=== PATIENT | female | born 1950 | race American Indian/Alaskan Native ===

== ENCOUNTER 2018-06-28 18:31 | Inpatient (IN) | payer MEDICARE ==
[2018-06-28] MEDS ORDERED: PERCOCET 5/325 PO ONE (20:49)
[2018-06-28 21:25] LABS: Hematocrit 50.3 % (30.3-42.9); Hemoglobin 16.6 gm/dl (10.1-14.3); Mean Corpuscular HGB Conc 33 % (30-34); Mean Corpuscular Volume 107 fl (79-97); Platelet Count 172 K/mm3 (140-440); Red Blood Count 4.69 M/mm3 (3.65-5.03); Red Cell Distribution Width 15.6 % (13.2-15.2)
[2018-06-28 21:56] LABS: Total Cells Counted 100
[2018-06-28 21:57] LABS: Basophils % (Manual) 0 % (0.0-1.8); Eosinophils % (Manual) 0 % (0.0-4.3); Myelocytes # (Manual) 0.2 K/mm3
[2018-06-28 21:58] LABS: Anisocytosis 1+; Macrocytosis 1+; Platelet Estimate Consistent w Auto; Poikilocytosis 1+
[2018-06-28 22:19] LABS: Albumin 3.2 g/dL (3.9-5)
--- NOTE | 2018-06-28 22:36 | XRay Report ---
PROCEDURE: XR CHEST 1V AP TECHNIQUE: Chest radiograph single view. HISTORY: sob COMPARISONS: None . FINDINGS: Heart: Normal. Mediastinum/Vessels: Normal. Lungs/Pleural space: Mild left lower lung atelectasis with slight left effusion. Mild vascular conge stion. Bony thorax: No acute osseous abnormality. Life support devices: None. IMPRESSION: Mild vascular congestion with mild left lower lung atelectasis and slight left effusion. . This document is electronically signed by Letitia Steward DO., June 28 2018 10:34:39 PM ET
--- NOTE | 2018-06-28 23:37 | XRay Report ---
PROCEDURE: XR SPINE LUMBOSACRAL 2-3V TECHNIQUE: Lumbar spine radiographs, AP and lateral views. HISTORY: lower back pain after fall COMPARISONS: None . FINDINGS: Alignment: Normal . Vertebral body heights/Disk spaces: There is mild loss of disc space height at the L4-5 and L5-S1 le vels. Slight endplate concavity identified at the L4 vertebral level. There is mild spur formation of f the vertebral bodies at all levels.. . Fracture(s): None . Facets: Normal . Bone mineralization: Moderate generalized osteopenia . IMPRESSION: There is no evidence of an acute fracture. Moderate lumbar spondylosis and degenerative disc changes as described. There is moderate generalized osteopenia. . This document is electronically signed by Letitia Steward DO., June 28 2018 11:34:37 PM ET
[2018-06-28] MEDS ORDERED: ROCEPHIN/NS 1 GM/50 ML 1 GM/50 ML BAG IV ONE (23:55)
[2018-06-29] MEDS ORDERED: ZITHROMAX 500 MG in NACL 0.9% 250ML 250 ML IV ONE (00:15)
--- NOTE | 2018-06-29 01:09 | Emergency Department Report ---
ED General Adult HPI - General Chief complaint: Fall Stated complaint: FALL Time Seen by Provider: 06/28/18 20:46 Source: patient Mode of arrival: Ambulatory Limitations: No Limitations - History of Present Illness Initial comments: Patient is a 67-year-old female past medical history of end-stage renal disease on peritoneal dialysis presents status post fall. Patient states that she has also been having some weakness. She denies being short of breath but she has been having some cough. She states that she fell at home around 9 AM this morning but she had no loss of consciousness. She is complaining of lower back pain that is a 7 out of 10 nothing makes it better and nothing makes it worse. Severity scale (0 -10): 6 - Related Data Home Medications Medication Instructions Recorded Confirmed Last Taken Calcitriol [Rocaltrol] 0.5 mcg PO QDAY 06/29/18 06/29/18 Unknown Potassium Chloride [Klor-Con M20] 20 meq PO DAILY 06/29/18 06/29/18 Unknown Sevelamer Carbonate 1,600 mg PO TID 06/29/18 06/29/18 Unknown Simvastatin [Zocor] 20 mg PO DAILY 06/29/18 06/29/18 Unknown Previous Rx's Medication Instructions Recorded Last Taken Type Aspirin [Aspirin BABY CHEW TAB] 81 mg PO QDAY #30 08/19/14 06/23/15 Rx Allergies Allergy/AdvReac Type Severity Reaction Status Date / Time No Known Allergies Allergy Verified 08/18/14 08:52 ED Review of Systems ROS: Stated complaint: FALL Other details as noted in HPI Constitutional: denies: chills, fever Eyes: denies: eye pain, eye discharge, vision change ENT: denies: ear pain, throat pain Respiratory: denies: cough, shortness of breath, wheezing Cardiovascular: denies: chest pain, palpitations Endocrine: no symptoms reported Gastrointestinal: denies: abdominal pain, nausea, diarrhea Genitourinary: denies: urgency, dysuria, discharge Musculoskeletal: back pain. denies: joint swelling, arthralgia Skin: denies: rash, lesions Neurological: denies: headache, weakness, paresthesias Psychiatric: denies: anxiety, depression Hematological/Lymphatic: denies: easy bleeding, easy bruising ED Past Medical Hx - Past Medical History Hx Hypertension: Yes (+ hyperlipidemia) Hx Diabetes: Yes (DIET CONTROLLED) Hx Renal Disease: Yes (CKD, STAGE 4 DR. 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 [place]) Hx Arthritis: Yes Hx Seizures: No Hx Asthma: No Hx COPD: No Hx HIV: No - Surgical History Past Surgical History?: No - Social History Smoking Status: Never Smoker Substance Use Type: None - Medications Home Medications: Home Medications Medication Instructions Recorded Confirmed Last Taken Type Aspirin [Aspirin BABY CHEW TAB] 81 mg PO QDAY #30 08/19/14 06/29/18 06/23/15 Rx Calcitriol [Rocaltrol] 0.5 mcg PO QDAY 06/29/18 06/29/18 Unknown History Potassium Chloride [Klor-Con M20] 20 meq PO DAILY 06/29/18 06/29/18 Unknown History Sevelamer Carbonate 1,600 mg PO TID 06/29/18 06/29/18 Unknown History Simvastatin [Zocor] 20 mg PO DAILY 06/29/18 06/29/18 Unknown History ED Physical Exam - General Limitations: No Limitations General appearance: alert, in no apparent distress - Head Head exam: Present: atraumatic, normocephalic - Eye Eye exam: Present: normal appearance - ENT ENT exam: Present: mucous membranes moist - Neck Neck exam: Present: normal inspection - Respiratory Respiratory exam: Present: normal lung sounds bilaterally. Absent: respiratory distress - Cardiovascular Cardiovascular Exam: Present: regular rate, normal rhythm. Absent: systolic murmur, diastolic murmur, rubs, gallop - GI/Abdominal GI/Abdominal exam: Present: soft, normal bowel sounds - Extremities Exam Extremities exam: Present: normal inspection - Back Exam Back exam: Present: normal inspection - Neurological Exam Neurological exam: Present: alert, oriented X3 - Psychiatric Psychiatric exam: Present: normal affect, normal mood - Skin Skin exam: Present: warm, dry, intact, normal color. Absent: rash ED Course Vital Signs 06/28/18 06/28/18 06/28/18 18:49 18:55 19:00 Temperature 97.2 F L Pulse Rate 56 L Respiratory 56 H Rate Blood Pressure 97/42 105/67 105/74 O2 Sat by Pulse 92 Oximetry 06/28/18 06/28/18 06/28/18 19:15 19:30 19:45 Temperature Pulse Rate 115 H 110 H 110 H Respiratory 16 18 19 Rate Blood Pressure 103/64 111/73 110/74 O2 Sat by Pulse Oximetry 06/28/18 06/28/18 06/28/18 20:00 20:15 20:30 Temperature Pulse Rate 108 H 108 H 109 H Respiratory 16 16 15 Rate Blood Pressure 96/64 108/77 116/74 O2 Sat by Pulse 89 84 Oximetry 06/28/18 06/28/18 06/28/18 20:45 21:00 21:15 Temperature Pulse Rate 110 H 112 H 106 H Respiratory 17 13 16 Rate Blood Pressure 117/73 120/78 105/67 O2 Sat by Pulse 75 L 49 L Oximetry 06/28/18 06/28/18 06/28/18 21:31 21:57 22:00 Temperature Pulse Rate 96 H 112 H 109 H Respiratory 17 16 16 Rate Blood Pressure 117/73 117/73 114/68 O2 Sat by Pulse Oximetry 06/28/18 06/28/18 06/28/18 22:15 22:30 23:00 Temperature Pulse Rate 70 109 H 105 H Respiratory 18 17 15 Rate Blood Pressure 114/68 97/59 100/62 O2 Sat by Pulse Oximetry 06/28/18 06/28/18 06/28/18 23:04 23:15 23:30 Temperature Pulse Rate 118 H 107 H 105 H Respiratory 18 16 16 Rate Blood Pressure 95/62 98/54 100/60 O2 Sat by Pulse Oximetry 06/28/18 06/28/18 06/29/18 23:31 23:45 00:00 Temperature Pulse Rate 108 H 103 H 104 H Respiratory 21 15 16 Rate Blood Pressure 100/60 85/53 93/58 O2 Sat by Pulse Oximetry 06/29/18 06/29/18 06/29/18 00:15 01:13 01:15 Temperature Pulse Rate 104 H 103 H 102 H Respiratory 16 16 15 Rate Blood Pressure 85/53 85/53 64/29 O2 Sat by Pulse Oximetry 06/29/18 01:30 Temperature Pulse Rate 104 H Respiratory 16 Rate Blood Pressure 61/22 O2 Sat by Pulse Oximetry - Consultations Consultation #1: 06/29/18 03:[address] 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 ED Medical Decision Making - Lab Data Result diagrams: 06/28/18 20:54 06/28/18 20:54 Lab Results 06/28/18 06/28/18 06/28/18 Range/Units 10:38 20:54 20:54 WBC 24.8 H (4.5-11.0) K/mm3 RBC 4.69 (3.65-5.03) M/mm3 Hgb 16.6 H (10.1-14.3) gm/dl Hct 50.3 H (30.3-42.9) % MCV 107 H (79-97) fl MCH 35 H (28-32) pg MCHC 33 (30-34) % RDW 15.6 H (13.2-15.2) % Plt Count 172 (140-440) K/mm3 Add Manual Diff Complete Total Counted 100 Seg Neutrophils % Check Pilot Seg Neuts % (Manual) 95.0 H (40.0-70.0) % Band Neutrophils % 0 % Lymphocytes % (Manual) 3.0 L (13.4-35.0) % Reactive Lymphs % (Man) 0 % Monocytes % (Manual) 1.0 (0.0-7.3) % Eosinophils % (Manual) 0 (0.0-4.3) % Basophils % (Manual) 0 (0.0-1.8) % Metamyelocytes % 0 % Myelocytes % 1.0 % Promyelocytes % 0 % Blast Cells % 0 % Nucleated RBC % Not Reportable Seg Neutrophils # Man 23.6 H (1.8-7.7) K/mm3 Band Neutrophils # 0.0 K/mm3 Lymphocytes # (Manual) 0.7 L (1.2-5.4) K/mm3 Abs React Lymphs (Man) 0.0 K/mm3 Monocytes # (Manual) 0.2 (0.0-0.8) K/mm3 Eosinophils # (Manual) 0.0 (0.0-0.4) K/mm3 Basophils # (Manual) 0.0 (0.0-0.1) K/mm3 Metamyelocytes # 0.0 K/mm3 Myelocytes # 0.2 K/mm3 Promyelocytes # 0.0 K/mm3 Blast Cells # 0.0 K/mm3 WBC Morphology Not Reportable Hypersegmented Neuts Not Reportable Hyposegmented Neuts Not Reportable Hypogranular Neuts Not Reportable Smudge Cells Not Reportable Toxic Granulation Not Reportable Toxic Vacuolation Not Reportable Dohle Bodies Not Reportable Pelger-Huet Anomaly Not Reportable Nomi Rods Not Reportable Platelet Estimate Consistent w auto Clumped Platelets Not Reportable Plt Clumps, EDTA Not Reportable Large Platelets Not Reportable Giant Platelets Not Reportable Platelet Satelliting Not Reportable Plt Morphology Comment Not Reportable RBC Morphology Not Reportable Dimorphic RBCs Not Reportable Polychromasia Not Reportable Hypochromasia Not Reportable Poikilocytosis 1+ Anisocytosis 1+ Microcytosis Not Reportable Macrocytosis 1+ Spherocytes Not Reportable Pappenheimer Bodies Not Reportable Sickle Cells Not Reportable Target Cells Not Reportable Tear Drop Cells Not Reportable Ovalocytes Not Reportable Helmet Cells Not Reportable Barnhart-[place] Bodies Not Reportable [place] Rings Not Reportable [place] Cells Not Reportable Bite Cells Not Reportable Crenated Cell Not Reportable Elliptocytes Not Reportable Acanthocytes (Spur) Not Reportable Rouleaux Not Reportable Hemoglobin C Crystals Not Reportable Schistocytes Not Reportable Malaria parasites Not Reportable Nav[place]et Bodies Not Reportable Hem Pathologist Commnt No D-Dimer (0-234) ng/mlDDU Sodium 131 L (137-145) mmol/L Potassium 4.5 (3.6-5.0) mmol/L Chloride 89.6 L (98-107) mmol/L Carbon Dioxide 19 L (22-30) mmol/L Anion Gap 27 mmol/L BUN 29 H (7-17) mg/dL Creatinine 9.3 H (0.7-1.2) mg/dL Estimated GFR 5 ml/min BUN/Creatinine Ratio 3 % Glucose 174 H (65-100) mg/dL Calcium 10.0 (8.4-10.2) mg/dL Total Bilirubin 0.40 (0.1-1.2) mg/dL AST 25 (5-40) units/L ALT 5 L (7-56) units/L Alkaline Phosphatase 88 (35-129) units/L Troponin T 0.073 H (0.00-0.029) ng/mL Total Protein 7.4 (6.3-8.2) g/dL Albumin 3.2 L (3.9-5) g/dL Albumin/Globulin Ratio 0.8 % 06/28/18 Range/Units 22:26 WBC (4.5-11.0) K/mm3 RBC (3.65-5.03) M/mm3 Hgb (10.1-14.3) gm/dl Hct (30.3-42.9) % MCV (79-97) fl MCH (28-32) pg MCHC (30-34) % RDW (13.2-15.2) % Plt Count (140-440) K/mm3 Add Manual Diff Total Counted Seg Neutrophils % Seg Neuts % (Manual) (40.0-70.0) % Band Neutrophils % % Lymphocytes % (Manual) (13.4-35.0) % Reactive Lymphs % (Man) % Monocytes % (Manual) (0.0-7.3) % Eosinophils % (Manual) (0.0-4.3) % Basophils % (Manual) (0.0-1.8) % Metamyelocytes % % Myelocytes % % Promyelocytes % % Blast Cells % % Nucleated RBC % Seg Neutrophils # Man (1.8-7.7) K/mm3 Band Neutrophils # K/mm3 Lymphocytes # (Manual) (1.2-5.4) K/mm3 Abs React Lymphs (Man) K/mm3 Monocytes # (Manual) (0.0-0.8) K/mm3 Eosinophils # (Manual) (0.0-0.4) K/mm3 Basophils # (Manual) (0.0-0.1) K/mm3 Metamyelocytes # K/mm3 Myelocytes # K/mm3 Promyelocytes # K/mm3 Blast Cells # K/mm3 WBC Morphology Hypersegmented Neuts Hyposegmented Neuts Hypogranular Neuts Smudge Cells Toxic Granulation Toxic Vacuolation Dohle Bodies Pelger-Huet Anomaly Nomi Rods Platelet Estimate Clumped Platelets Plt Clumps, EDTA Large Platelets Giant Platelets Platelet Satelliting Plt Morphology Comment RBC Morphology Dimorphic RBCs Polychromasia Hypochromasia Poikilocytosis Anisocytosis Microcytosis Macrocytosis Spherocytes Pappenheimer Bodies Sickle Cells Target Cells Tear Drop Cells Ovalocytes Helmet Cells Barnhart-[place] Bodies [place] Rings Edgar Cells Bite Cells Crenated Cell Elliptocytes Acanthocytes (Spur) Rouleaux Hemoglobin C Crystals Schistocytes Malaria parasites Navneet Bodies Hem Pathologist Commnt D-Dimer > 52646 H (0-234) ng/mlDDU Sodium (137-145) mmol/L Potassium (3.6-5.0) mmol/L Chloride (98-107) mmol/L Carbon Dioxide (22-30) mmol/L Anion Gap mmol/L BUN (7-17) mg/dL Creatinine (0.7-1.2) mg/dL Estimated GFR ml/min BUN/Creatinine Ratio % Glucose (65-100) mg/dL Calcium (8.4-10.2) mg/dL Total Bilirubin (0.1-1.2) mg/dL AST (5-40) units/L ALT (7-56) units/L Alkaline Phosphatase (35-129) units/L Troponin T (0.00-0.029) ng/mL Total Protein (6.3-8.2) g/dL Albumin (3.9-5) g/dL Albumin/Globulin Ratio % - EKG Data -: EKG Interpreted by Me - EKG Data 06/29/18 03:48 KG shows sinus tachycardia rate 106 total left atrial enlargement no ST segment elevation or T-wave inversion normal axis. Impression abnormal EKG - Radiology Data Radiology results: report reviewed, image reviewed Chest x-ray: Shows left lobe atelectasis Ventilation perfusion scan: Shows low probability of pulmonary embolism CT angios chest: No contrast was used and the study shows left lobe atelectasis - Medical Decision Making Chief medical diagnosis: PNA ddx: NSTEMI, Pulmonary embolism, lumbar sacral strain I will give antibiotics, cxr, blood work, nephrology consult and will admit the patient to the hospitalist service Critical Care Time: Yes (35) Critical care time in (mins) excluding proc time.: 35 Critical care attestation.: If time is entered above; I have spent that time in minutes in the direct care of this critically ill patient, excluding procedure time. Medical care time spent with patient 35 minutes ED Disposition Clinical Impression: ESRD (end stage renal disease), NSTEMI (non-ST elevated myocardial infarction) PNA (pneumonia) Qualifiers: Pneumonia type: due to unspecified organism Laterality: left Lung location: lower lobe of lung Qualified Code(s): J18.1 - Lobar pneumonia, unspecified organism Fall Qualifiers: Encounter type: initial encounter Qualified Code(s): W19.XXXA - Unspecified fall, initial encounter Disposition: OP ADMIT IP TO THIS HOSP Is pt being admited?: Yes Does the pt Need Aspirin: No Condition: Stable Instructions: Chest Pain (ED), Bacterial Pneumonia (ED) Referrals: JENNYFER OLVERA MD [Primary Care Provider] - 3-5 Days
[2018-06-29] MEDS ORDERED: NACL 0.9% 500 ML 500 ML IV ONE (01:45)
[2018-06-29] MEDS ORDERED: NACL 0.9% 1000 ML 1,000 ML ONE (01:49)
--- NOTE | 2018-06-29 01:49 | Cat Scan Report ---
PROCEDURE: CT CHEST TECHNIQUE: Computerized axial tomography of the chest was performed without contrast material. This study is performed without intravenous contrast and the sensitivity for pathology, including neoplasm s, adenopathy, abscess, pulmonary embolism and aortic dissection, is reduced. HISTORY: sob elevated d-dimer COMPARISONS: None . FINDINGS: Heart and pericardium: Normal. Thoracic aorta: Moderate atherosclerosis of the aorta. There is tortuosity of thoracic aorta. No ane urysm is seen.. Pulmonary vasculature: Normal. Lymph nodes: No enlarged thoracic lymph nodes. Lungs: Mild atelectasis identified in the left lower lung. Slight scarring in the left lower lung is noted. Central airway is patent. Pleural space: No effusion, thickening, or pneumothorax. Musculoskeletal structures: Moderate degenerative changes of the thoracic spine.. Upper abdominal structures: Moderate ascites identified in the upper abdomen. IMPRESSION: There is atelectasis in the left lower lung. Slight scarring left lower lung is noted. R ight lung is clear. There is moderate ascites identified in the upper abdomen. This document is electronically signed by Letitia Steward DO., June 29 2018 01:47:10 AM ET
--- NOTE | 2018-06-29 03:31 | Nuclear Medicine Report ---
PROCEDURE: NM LUNG SCAN PERF/VENT TECHNIQUE: 4.66 mCi Tc-99m MAA was injected IV for pulmonary perfusion imaging in multiple projectio ns. 32.3 mCi xenon-133 gas was inhaled for pulmonary ventilation imaging in multiple projections. Inj ection site: RIGHT antecubital fossa. HISTORY: sob and elevated d-dimer COMPARISONS: Chest radiograph same date . FINDINGS: Perfusion: There is diminished perfusion in the left lower lung posteriorly. The remainder of the scar ngs perfuse well. Ventilation: There is some diminished ventilation in the left lower lung posteriorly. The remainder of the lungs ventilate appropriately. The findings are matched. The findings match the patient's chest radiograph. IMPRESSION: Low probability of pulmonary embolus . This document is electronically signed by Letitia Steward DO., June 29 2018 03:30:13 AM ET
[2018-06-29 04:49] LABS: Chol/HDL Ratio 2.45 %
[2018-06-29] MEDS ORDERED: XYLOCAINE 1% 20 mL ONE (05:27)
[2018-06-29] MEDS: LEVOPHED DRIP 4 MG/NS 250 ML 4 MG/250 ML BAG IV SCH ×2 (05:29→13:00)
[2018-06-29] MEDS ORDERED: XYLOCAINE 1% 20 mL INFILTRATI ONE (05:33)
[2018-06-29] MEDS ORDERED: LEVOPHED DRIP 4 MG/NS 250 ML 4 MG/250 ML BAG IV ONE (05:59)
--- NOTE | 2018-06-29 07:32 | XRay Report ---
PROCEDURE: XR CHEST 1V AP TECHNIQUE: AP portable chest radiograph HISTORY: Post Central Line COMPARISONS: 06/28/2018, CT 06/29/2018 FINDINGS: No mediastinal shift. Cardiac silhouette is not enlarged. No pneumothorax, effusion, or focal airspac e disease identified. Linear left basilar atelectasis/scarring. No acute skeletal findings. Contrast noted within the soft tissues of the left arm from recent injection/IV infiltration. IMPRESSION: No central line is identified. Clinical correlation is requested. No pneumothorax. Infiltrated intravenous contrast within the soft tissues of the left neck and arm. This document is electronically signed by Deshawn Granados MD., June 29 2018 07:30:34 AM ET
--- NOTE | 2018-06-29 10:58 | History and Physical Report ---
History of Present Illness Date of examination: 06/29/18 Date of admission: 06/29/18 09:13 Chief complaint: s/p fall History of present illness: Patient is a 67-year-old female past medical history of end-stage renal disease on peritoneal dialysis, hypertension hyperlipidemia, diabetes mellitus type 2 on diet control presented to ER by EMS after having a fall. She states that she fell at home from her bed around 9 AM this morning but she had no loss of consciousness. She was unable to get up from the bed as she was feeling very weak . She was on the floor chills 5 PM. Her family called emergency services to break into her house . She was then brought to the ER for further evaluation and management . She noted to have highly elevated d-dimer, elevated white count. In the ED, patient was hypotensive w/ WBC 24.8. CTA chest was unremarkable. V/Q scan was also low prob PE. She denies fever, chills. She denies SOB, cough. She denies abdominal pain, nausea, vomiting. PD fluid has been clear. She was placed on Levophed, given IV Rocephin and then called for admission for further evaluation and management. Multiple attempts were made to place a central line which has been failed, vascular was consulted from the ER. Past History Past Medical History: diabetes, hypertension, hyperlipidemia, ESRD on PD Past Surgical history: PD catheter placement Social history: denies: smoking, alcohol abuse Family history: diabetes, hypertension, other (renal disease) Review of systems: Constitutional: denies: chills, fever Eyes: denies: eye pain, eye discharge, vision change ENT: denies: ear pain, throat pain Respiratory: denies: cough, shortness of breath, wheezing Cardiovascular: denies: chest pain, palpitations Endocrine: no symptoms reported Gastrointestinal: denies: abdominal pain, nausea, diarrhea Genitourinary: denies: urgency, dysuria, discharge Musculoskeletal: back pain. denies: joint swelling, arthralgia Skin: denies: rash, lesions Neurological: denies: headache, weakness, paresthesias Psychiatric: denies: anxiety, depression Hematological/Lymphatic: denies: easy bleeding, easy bruising Medications and Allergies Allergies Allergy/AdvReac Type Severity Reaction Status Date / Time No Known Allergies Allergy Verified 08/18/14 08:52 Home Medications Medication Instructions Recorded Confirmed Last Taken Type Aspirin [Aspirin BABY CHEW TAB] 81 mg PO QDAY #30 08/19/15 06/29/18 06/23/15 Rx Calcitriol [Rocaltrol] 0.5 mcg PO QDAY 06/29/18 06/29/18 Unknown History Potassium Chloride [Klor-Con M20] 20 meq PO DAILY 06/29/18 06/29/18 Unknown History Sevelamer Carbonate 1,600 mg PO TID 06/29/18 06/29/18 Unknown History Simvastatin [Zocor] 20 mg PO DAILY 06/29/18 06/29/18 Unknown History Active Meds: Active Medications Aspirin (Baby Aspirin) 81 mg PO QDAY DIANE Calcitriol (Rocaltrol) 0.5 mcg PO QDAY DIANE Norepinephrine (Levophed Drip 4 Mg/Ns 250 Ml) 4 mg in 250 mls @ 37.5 mls/hr IV TITR DIANE; Protocol Last Admin: 06/29/18 05:29 Dose: 10 mcg/min, 37.5 mls/hr Documented by: Ceftriaxone Sodium (Rocephin/Ns 2 Gm/100 Ml) 2 gm in 100 mls @ 200 mls/hr IV Q12HR DIANE; Protocol Miscellaneous Medication (Simvastatin [Zocor]) 20 mg PO DAILY [facility] Peritoneal Dialysis Solution (Dianeal Low Calcium W/1.5% Dextrose) 2,000 ml IP Q6HR DIANE Sevelamer Carbonate (Renvela) 1,600 mg PO TID DIANE Exam - Physical Exam Narrative exam: GENERAL: well-developed and well-nourished AAF lying on bed appeared to be in no discomfort. HEENT: Normocephalic. Atraumatic. No conjunctival congestion or icterus. Patient has moist mucous membranes. NECK: Supple. Trachea midline. CHEST/LUNGS: Clear to auscultated bilaterally, breathing nonlabored. No wheezes crackles or rhonchi. HEART/CARDIOVASCULAR: Regular in rate and rhythm. S1 and S2 positive. ABDOMEN: Abdomen is soft, nontender. Patient has normal bowel sounds. SKIN: There is no rash. Warm and dry. NEURO: No focal motor deficit. Follows command. MUSCULOSKELETAL: No joint effusion or tenderness. EXTRIMITY: No edema, no cyanosis or clubbing. PSYCH: Cooperative. - Constitutional Vitals: Temp Pulse Resp BP Pulse Ox 98.2 F 105 H 16 116/68 95 06/29/18 04:46 06/29/18 07:30 06/29/18 07:30 06/29/18 07:30 06/29/18 07:30 Results - Labs CBC & Chem 7: 06/29/18 14:11 06/29/18 13:30 Labs: Abnormal lab results 06/28/18 06/28/18 06/28/18 Range/Units 10:38 20:54 20:54 WBC 24.8 H (4.5-11.0) K/mm3 Hgb 16.6 H (10.1-14.3) gm/dl Hct 50.3 H (30.3-42.9) % MCV 107 H (79-97) fl MCH 35 H (28-32) pg RDW 15.6 H (13.2-15.2) % Seg Neuts % (Manual) 95.0 H (40.0-70.0) % Lymphocytes % (Manual) 3.0 L (13.4-35.0) % Seg Neutrophils # Man 23.6 H (1.8-7.7) K/mm3 Lymphocytes # (Manual) 0.7 L (1.2-5.4) K/mm3 D-Dimer (0-234) ng/mlDDU Sodium 131 L (137-145) mmol/L Chloride 89.6 L (98-107) mmol/L Carbon Dioxide 19 L (22-30) mmol/L BUN 29 H (7-17) mg/dL Creatinine 9.3 H (0.7-1.2) mg/dL Glucose 174 H (65-100) mg/dL ALT 5 L (7-56) units/L Troponin T 0.073 H (0.00-0.029) ng/mL Albumin 3.2 L (3.9-5) g/dL Triglycerides 194 H (2-149) mg/dL HDL Cholesterol 68 H (40-59) mg/dL 06/28/18 Range/Units 22:26 WBC (4.5-11.0) K/mm3 Hgb (10.1-14.3) gm/dl Hct (30.3-42.9) % MCV (79-97) fl MCH (28-32) pg RDW (13.2-15.2) % Seg Neuts % (Manual) (40.0-70.0) % Lymphocytes % (Manual) (13.4-35.0) % Seg Neutrophils # Man (1.8-7.7) K/mm3 Lymphocytes # (Manual) (1.2-5.4) K/mm3 D-Dimer > 45226 H (0-234) ng/mlDDU Sodium (137-145) mmol/L Chloride (98-107) mmol/L Carbon Dioxide (22-30) mmol/L BUN (7-17) mg/dL Creatinine (0.7-1.2) mg/dL Glucose (65-100) mg/dL ALT (7-56) units/L Troponin T (0.00-0.029) ng/mL Albumin (3.9-5) g/dL Triglycerides (2-149) mg/dL HDL Cholesterol (40-59) mg/dL Assessment and Plan Possible sepsis Hypotension vs septic shock HLD ESRD on PD Diabetes Elevated troponin/NSTEMI type 2 - Admit to intensive care unit - Emergent central line placement for vascular has been consulted - Cardiology consulted for elevated troponin - Nephrology consulted for peritoneal dialysis - We'll hold all blood pressure medications - Continue aspirin and statin and DVT prophylaxis - We'll obtain serial troponin, CPK level - Continue empiric antibiotics, obtain blood culture - No infiltrates noted on CTA chest/chest x-ray/VQ scan - will continue to monitor clinically with supportive care The high probability of a clinically significant, sudden or life threatening deterioration of the [45] system(s) required my full and direct attention, intervention and personal management. The aggregate critical care time was [] minutes. This time is in addition to time spent performing reported procedures but includes the following: [x] Data Review and interpretation [x] Patient assessment and monitoring of vital signs [x] Documentation [x] Medication orders and management
--- NOTE | 2018-06-29 11:54 | Consultation ---
History of Present Illness Consult date: 06/29/18 Requesting physician: ALONZO AMATO Consult reason: elevated troponin History of present illness: 67-year-old female with a history of renal disease on peritoneal dialysis has hypertension diabetes hyperlipidemia who fell yesterday denies any lightheadedness or dizziness prior or chest pain or shortness of breath was found be hypotensive and elevated white blood count patient unsuccessful venous access. Was consulted to place a venous access was done successfully in the left common femoral vein. Patient also had abnormal troponin. Patient denies any chest pain or shortness of breath denies any dizziness or fever or chills or syncope. She denies osteoarthritis use a walker to get around is able to her daily activities without issues Past History Past Medical History: diabetes, ESRD (on peritoneal dialysis), hypertension, hyperlipidemia Past Surgical History: Other (hip and knee surgery and PD catheter) Social history: denies: smoking, alcohol abuse, prescription drug abuse Medications and Allergies Allergies Allergy/AdvReac Type Severity Reaction Status Date / Time No Known Allergies Allergy Verified 08/18/14 08:52 Home Medications Medication Instructions Recorded Confirmed Last Taken Type Aspirin [Aspirin BABY CHEW TAB] 81 mg PO QDAY #30 08/19/14 06/29/18 06/23/15 Rx Calcitriol [Rocaltrol] 0.5 mcg PO QDAY 06/29/18 06/29/18 Unknown History Potassium Chloride [Klor-Con M20] 20 meq PO DAILY 06/29/18 06/29/18 Unknown History Sevelamer Carbonate 1,600 mg PO TID 06/29/18 06/29/18 Unknown History Simvastatin [Zocor] 20 mg PO DAILY 06/29/18 06/29/18 Unknown History Active Meds: Active Medications Aspirin (Baby Aspirin) 81 mg PO QDAY DIANE Atorvastatin Calcium (Lipitor) 40 mg PO QHS DIANE Calcitriol (Rocaltrol) 0.5 mcg PO QDAY DIANE Famotidine (Pepcid) 10 mg PO QDAY DIANE Heparin Sodium (Porcine) (Heparin) 5,000 unit SUB-Q Q12HR DIANE Norepinephrine (Levophed Drip 4 Mg/Ns 250 Ml) 4 mg in 250 mls @ 37.5 mls/hr IV TITR DIANE; Protocol Last Titration: 06/29/18 11:00 Dose: 12 mcg/min, 45 mls/hr Documented by: Ceftriaxone Sodium (Rocephin/Ns 2 Gm/100 Ml) 2 gm in 100 mls @ 200 mls/hr IV Q12HR [facility]; Protocol Peritoneal Dialysis Solution (Dianeal Low Calcium W/1.5% Dextrose) 2,000 ml IP Q6HR DIANE Sevelamer Carbonate (Renvela) 1,600 mg PO TID DIANE Review of Systems All systems: negative (as per the HPI) Physical Examination Vital Signs BP 97/42 06/28/18 18:49 General appearance: no acute distress, well-nourished HEENT: Positive: PERRL, Mucus Membranes Moist Neck: Positive: neck supple, trachea midline Cardiac: Positive: Reg Rate and Rhythm, S1/S2. Negative: Audible Murmur Lungs: Positive: clear to auscultation, Normal Breath Sounds Neuro: Positive: Grossly Intact Abdomen: Positive: Soft, Active Bowel Sounds. Negative: Tender, Distended Female genitourinary: deferred Skin: Positive: Clear Incision: Cardiac Cath Site Musculoskeletal: No Pain, Normal Range of Motion Extremities: Present: normal. Absent: edema Results 06/28/18 20:54 06/28/18 20:54 Cardiac Enzymes 06/28/18 Range/Units 20:54 AST 25 (5-40) units/L Lipids 06/28/18 Range/Units 10:38 Triglycerides 194 H (2-149) mg/dL Cholesterol 167 (50-199) mg/dL HDL Cholesterol 68 H (40-59) mg/dL Cholesterol/HDL Ratio 2.45 % CBC 06/28/18 Range/Units 20:54 WBC 24.8 H (4.5-11.0) K/mm3 RBC 4.69 (3.65-5.03) M/mm3 Hgb 16.6 H (10.1-14.3) gm/dl Hct 50.3 H (30.3-42.9) % Plt Count 172 (140-440) K/mm3 Comprehensive Metabolic Panel 06/28/18 Range/Units 20:54 Sodium 131 L (137-145) mmol/L Potassium 4.5 (3.6-5.0) mmol/L Chloride 89.6 L (98-107) mmol/L Carbon Dioxide 19 L (22-30) mmol/L BUN 29 H (7-17) mg/dL Creatinine 9.3 H (0.7-1.2) mg/dL Glucose 174 H (65-100) mg/dL Calcium 10.0 (8.4-10.2) mg/dL AST 25 (5-40) units/L ALT 5 L (7-56) units/L Alkaline Phosphatase 88 (35-129) units/L Total Protein 7.4 (6.3-8.2) g/dL Albumin 3.2 L (3.9-5) g/dL - Imaging and Cardiology Echo: pending EKG interpretations - Telemetry EKG Rhythm: Sinus Tachycardia (non specific st-t) Assessment and Plan Hypotension and possible sepsis Non-ST elevation [place] type II End-stage renal disease on peritoneal dialysis Venous sclerosis Diabetes Hyperlipidemia Recommend patient has venous access now continue levothyroxine patient on aspirin and check an echocardiogram no changed EKG we'll repeat troponin medical therapy for possible sepsis with antibiotics
--- NOTE | 2018-06-29 12:31 | Procedure Note ---
PROCEDURE: Triple lumen venous catheter placed in the left common femoral vein. INDICATION: For hypertension and venous sclerosis as the patient is a dialysis patient, unable to gain adequate peripheral access, was consulted for venous access. PROCEDURE IN DETAIL: Procedure was done under sterile technique, local anesthesia, I was able to find the common femoral vein. Guidewire was placed in. Over the sheath, a triple lumen catheter was placed in. Good return of some blood flow switched in. No hematoma, no bleeding. SUMMARY: Successful placement of a left triple lumen catheter in a sterile technique. Discussed this with the patient and the patient's family. JOB# [id number] REMINGTON/EMELIA
--- NOTE | 2018-06-29 12:39 | Consultation ---
History of Present Illness Consult date: 06/29/18 Requesting physician: ALONZO AMATO Reason for consult: other (Hypotension) History of present illness: Patient is a 67-year-old female past medical history of end-stage renal disease on peritoneal dialysis presents status post fall. Patient states that she has also been having some weakness. She denies being short of breath but she has been having some cough. She states that she fell at home around 9 AM this morning but she had no loss of consciousness. She is complaining of lower back pain that is a 7 out of 10 nothing makes it better and nothing makes it worse. IN the ED she noted to have highly elevated d-dimer, elevated white count. In the ED, patient was hypotensive w/ WBC 24.8. CTA chest was unremarkable. V/Q scan was also low probability PE. She was placed on Levophed, given IV Rocephin and then admitted for further evaluation and management. She was admitted to the ICU and I have been consulted fro critical care management At the time of my evaluation, she was on 12 mcg norepinephrine infusion via a femoral CVC with MAP of 65 She was awake and alert.She denies fever, chills. She denies SOB, cough. She denies abdominal pain, nausea, vomiting. PD fluid has been clear. She will get a session of PD later today Review of systems: Constitutional: denies: chills, fever Eyes: denies: eye pain, eye discharge, vision change ENT: denies: ear pain, throat pain Respiratory: denies: cough, shortness of breath, wheezing Cardiovascular: denies: chest pain, palpitations Endocrine: no symptoms reported Gastrointestinal: denies: abdominal pain, nausea, diarrhea Genitourinary: denies: urgency, dysuria, discharge Musculoskeletal: back pain. denies: joint swelling, arthralgia Skin: denies: rash, lesions Neurological: denies: headache, weakness, paresthesias Psychiatric: denies: anxiety, depression Hematological/Lymphatic: denies: easy bleeding, easy bruising Past History Past Medical History: diabetes, ESRD (on peritoneal dialysis), hypertension, hyperlipidemia Past Surgical History: Other (hip and knee surgery and PD catheter) Social history: denies: smoking, alcohol abuse, prescription drug abuse Medications and Allergies Allergies Allergy/AdvReac Type Severity Reaction Status Date / Time No Known Allergies Allergy Verified 08/18/14 08:52 Home Medications Medication Instructions Recorded Confirmed Last Taken Type Aspirin [Aspirin BABY CHEW TAB] 81 mg PO QDAY #30 08/19/14 06/29/18 06/23/15 Rx Calcitriol [Rocaltrol] 0.5 mcg PO QDAY 06/29/18 06/29/18 Unknown History Potassium Chloride [Klor-Con M20] 20 meq PO DAILY 06/29/18 06/29/18 Unknown History Sevelamer Carbonate 1,600 mg PO TID 06/29/18 06/29/18 Unknown History Simvastatin [Zocor] 20 mg PO DAILY 06/29/18 06/29/18 Unknown History Active Meds: Active Medications Aspirin (Baby Aspirin) 81 mg PO QDAY DIANE Atorvastatin Calcium (Lipitor) 40 mg PO QHS DIANE Calcitriol (Rocaltrol) 0.5 mcg PO QDAY DIANE Famotidine (Pepcid) 10 mg PO QDAY DIANE Heparin Sodium (Porcine) (Heparin) 5,000 unit SUB-Q Q12HR DIANE Norepinephrine (Levophed Drip 4 Mg/Ns 250 Ml) 4 mg in 250 mls @ 37.5 mls/hr IV TITR DIANE; Protocol Last Titration: 06/29/18 11:00 Dose: 12 mcg/min, 45 mls/hr Documented by: Ceftriaxone Sodium (Rocephin/Ns 2 Gm/100 Ml) 2 gm in 100 mls @ 200 mls/hr IV Q12H DIANE; Protocol Peritoneal Dialysis Solution (Dianeal Low Calcium W/1.5% Dextrose) 2,000 ml IP Q6HR DIANE Sevelamer Carbonate (Renvela) 1,600 mg PO TIDWM [facility] Physical Examination Vital signs: Vital Signs BP 97/42 06/28/18 18:49 GENERAL: well-developed and well-nourished pleasant AAF lying on bed appeared to be in no discomfort. HEENT: Normocephalic. Atraumatic. No conjunctival congestion or icterus. Patient has moist mucous membranes. NECK: Supple. Trachea midline. CHEST/LUNGS: Clear to auscultated bilaterally, breathing non labored. No wheezes crackles or rhonchi. HEART/CARDIOVASCULAR: Regular in rate and rhythm. S1 and S2 positive. ABDOMEN: Abdomen is soft, nontender. Patient has normal bowel sounds. SKIN: There is no rash. Warm and dry. NEURO: No focal motor deficit. Follows command. MUSCULOSKELETAL: No joint effusion or tenderness. EXTRIMITY: No edema, no cyanosis or clubbing. PSYCH: Cooperative. Results - Laboratory Findings CBC and BMP: 07/02/18 05:22 07/02/18 05:22 PT/INR, D-dimer D-Dimer > 55949 ng/mlDDU (0-234) H 06/28/18 22:26 Abnormal lab findings: Abnormal Labs 06/28/18 06/28/18 06/28/18 10:38 20:54 20:54 WBC 24.8 H Hgb 16.6 H Hct 50.3 H MCV 107 H MCH 35 H RDW 15.6 H Seg Neuts % (Manual) 95.0 H Lymphocytes % (Manual) 3.0 L Seg Neutrophils # Man 23.6 H Lymphocytes # (Manual) 0.7 L D-Dimer Sodium 131 L Chloride 89.6 L Carbon Dioxide 19 L BUN 29 H Creatinine 9.3 H Glucose 174 H POC Glucose ALT 5 L Troponin T 0.073 H Albumin 3.2 L Triglycerides 194 H HDL Cholesterol 68 H 06/28/18 06/29/18 22:26 12:18 WBC Hgb Hct MCV MCH RDW Seg Neuts % (Manual) Lymphocytes % (Manual) Seg Neutrophils # Man Lymphocytes # (Manual) D-Dimer > 17654 H Sodium Chloride Carbon Dioxide BUN Creatinine Glucose POC Glucose 168 H ALT Troponin T Albumin Triglycerides HDL Cholesterol Assessment and Plan Severe sepsis withseptic shock HLD ESRD on PD Diabetes Elevated troponin/NSTEMI type 2 PLAN - Continue with critical care managment -Continue asopressor support, wean for MAP>65 -Cutures-PD fluid, blood -Broad spectrum empiric antibiotics until cultures and REJI are available -Volume resuscitation -Get procalcitonin and CRP levels to help guide antibiotic therapy therapy -VTE prophylaxis -Discontinue all anti-hypertensives -Get lactic acid -Serial troponins, denies any chest pain -Nutritional support -ABG to assess acid-base balance and gegree of metabolic acidosis - Nephrology consult for peritoneal dialysis - No infiltrates noted on CTA chest/chest x-ray/VQ scan -2D Echocardiogram to evaluate EF and for pulmoanry HTN - will continue to monitor clinically with supportive care Discussed care plan with the patient and Attending physician. Discussed with RN at the bedside. CONDITION: CRITICAL PROGNOSIS: FAIR CODE STATUS: FULL The high probability of a clinically significant, sudden or life-threatening deterioration of the [cardiac, neurology] system(s) required my full and direct attention, intervention and personal management. The aggregate critical care time was [45] minutes without overlap. Time includes spent on; [x] Data Review and interpretation [x] Patient assessment and monitoring of vital signs [x] Documentation [x] Medication orders and management
[2018-06-29] MEDS: RENVELA PO SCH ×2 (13:14→17:50)
[2018-06-29] MEDS: ROCALTROL PO SCH (13:14)
[2018-06-29] MEDS: BABY ASPIRIN PO SCH (13:14)
[2018-06-29] MEDS: HEPARIN SUB-Q SCH ×2 (13:14→21:53)
[2018-06-29] MEDS: ROCEPHIN/NS 2 GM/100 ML 2 GM/100 ML BAG IV SCH (13:40)
[2018-06-29] MEDS: LIDODERM 5% TD SCH (13:41)
[2018-06-29 14:14] LABS: Calcium 8.8 mg/dL (8.4-10.2)
[2018-06-29 14:29] LABS: Hematocrit 45.4 % (30.3-42.9); Hemoglobin 14.7 gm/dl (10.1-14.3); Mean Corpuscular HGB Conc 32 % (30-34); Mean Corpuscular Volume 108 fl (79-97); Platelet Count 179 K/mm3 (140-440); Red Blood Count 4.22 M/mm3 (3.65-5.03); Red Cell Distribution Width 15.9 % (13.2-15.2)
[2018-06-29] MEDS: DIANEAL LOW CALCIUM W/1.5% DEXTROSE IP SCH ×2 (14:40→18:50)
--- NOTE | 2018-06-29 15:10 | Consultation ---
History of Present Illness - Reason for Consult Consult date: 06/29/18 end stage renal disease - History of Present Illness Mrs. Kumar is a 67yo with ESRD on PD who presented to the ED after being found down. Patient reports that yesterday am, she was sitting on bed and accidentaly "slid to ground". She denies syncope, fall, chest pain, palpitations and loss of consciousness. She reports that she was unable to get up. Police were called to home and patient was brought to the ED. In the ED, patient was hypotensive w/ WBC 24.8. CTA chest was unremarkable. V/Q scan was also low prob PE. She denies fever, chills. She denies SOB, cough. She denies abdominal pain, nausea, vomiting. PD fluid has been clear. Past History Past Medical History: diabetes, ESRD (on peritoneal dialysis), hypertension, hyperlipidemia Past Surgical History: Other (hip and knee surgery and PD catheter) Social history: denies: smoking, alcohol abuse, prescription drug abuse Medications and Allergies Allergies Allergy/AdvReac Type Severity Reaction Status Date / Time No Known Allergies Allergy Verified 08/18/14 08:52 Home Medications Medication Instructions Recorded Confirmed Last Taken Type Aspirin [Aspirin BABY CHEW TAB] 81 mg PO QDAY #30 08/19/14 06/29/18 06/23/15 Rx Calcitriol [Rocaltrol] 0.5 mcg PO QDAY 06/29/18 06/29/18 Unknown History Potassium Chloride [Klor-Con M20] 20 meq PO DAILY 06/29/18 06/29/18 Unknown History Sevelamer Carbonate 1,600 mg PO TID 06/29/18 06/29/18 Unknown History Simvastatin [Zocor] 20 mg PO DAILY 06/29/18 06/29/18 Unknown History Active Meds: Active Medications Aspirin (Baby Aspirin) 81 mg PO QDAY [facility] Last Admin: 06/29/18 13:14 Dose: 81 mg Documented by: Atorvastatin Calcium (Lipitor) 40 mg PO QHS [facility] Calcitriol (Rocaltrol) 0.5 mcg PO QDAY [facility] Last Admin: 06/29/18 13:14 Dose: 0.5 mcg Documented by: Famotidine (Pepcid) 10 mg PO QDAY [facility] Heparin Sodium (Porcine) (Heparin) 5,000 unit SUB-Q Q12HR [facility] Last Admin: 06/29/18 13:14 Dose: 5,000 unit Documented by: Norepinephrine (Levophed Drip 4 Mg/Ns 250 Ml) 4 mg in 250 mls @ 37.5 mls/hr IV TITR [facility]; Protocol Last Titration: 06/29/18 11:00 Dose: 12 mcg/min, 45 mls/hr Documented by: Ceftriaxone Sodium (Rocephin/Ns 2 Gm/100 Ml) 2 gm in 100 mls @ 200 mls/hr IV Q12H [facility]; Protocol Last Admin: 06/29/18 13:40 Dose: 200 mls/hr Documented by: Lidocaine (Lidoderm 5%) 1 each TD QDAY [facility]ANE Last Admin: 06/29/18 13:41 Dose: 1 each Documented by: Peritoneal Dialysis Solution (Dianeal Low Calcium W/1.5% Dextrose) 2,000 ml IP Q6HR [facility] Sevelamer Carbonate (Renvela) 1,600 mg PO TIDWM [facility] Last Admin: 06/29/18 13:14 Dose: 1,600 mg Documented by: Review of Systems All systems: negative Exam - Vital Signs Vital signs: Vital Signs BP 97/42 06/28/18 18:49 - General Appearance General appearance: well-developed, well-nourished EENT: ATNC Respiratory: Clear to Ascultation Heart: regular, S1S2 Gastrointestinal: Present: normal. Absent: tenderness, distended Integumentary: no rash, warm and dry Neurologic: no focal deficit Musculoskeletal: Present: other (no edema) Psychiatric: cooperative Results - Lab Results 06/29/18 14:11 06/29/18 13:30 Most recent lab results Calcium 8.8 mg/dL (8.4-10.2) 06/29/18 13:30 Assessment and Plan Impression: * End stage renal disease on PD * Leukocytosis * Elevated troponin - r/o NSTEMI * Hypotension * Hypokalemia - resolved * Secondary hyperparathyroidism Plan: * Resume peritoneal dialysis - 1.5% exchanges * IVF for gentle hydration - Hb 16.6 at admission - likely due to hemoconcentration from volume depletion * Empiric abx per primary team * Cardiology recommendations noted * Renal diet * Dose medications for renal function * Continue binders and calcitriol
[2018-06-29] MEDS: NACL 0.9% 1000 ML 1,000 ML IV SCH (17:00)
[2018-06-29] MEDS: HumaLOG SUB-Q SCH (21:59)
[2018-06-30] MEDS: ROCEPHIN/NS 2 GM/100 ML 2 GM/100 ML BAG IV SCH ×2 (00:45→10:45)
[2018-06-30] MEDS: DIANEAL LOW CALCIUM W/1.5% DEXTROSE IP SCH ×3 (00:46→12:30)
[2018-06-30] MEDS: LEVOPHED DRIP 4 MG/NS 250 ML 4 MG/250 ML BAG IV SCH (03:00)
[2018-06-30 05:15] LABS: Hematocrit 38.7 % (30.3-42.9); Hemoglobin 12.6 gm/dl (10.1-14.3); Mean Corpuscular HGB Conc 33 % (30-34); Mean Corpuscular Volume 106 fl (79-97); Platelet Count 147 K/mm3 (140-440); Red Blood Count 3.66 M/mm3 (3.65-5.03); Red Cell Distribution Width 15.5 % (13.2-15.2)
[2018-06-30 05:28] LABS: Calcium 7.9 mg/dL (8.4-10.2)
[2018-06-30 06:53] LABS: Basophils % (Manual) 0 % (0.0-1.8); Eosinophils % (Manual) 0 % (0.0-4.3); Total Cells Counted 100
[2018-06-30 06:55] LABS: Platelet Estimate Consistent w Auto; Target Cells Few
[2018-06-30] MEDS: HumaLOG SUB-Q SCH ×4 (08:40→22:14)
[2018-06-30] MEDS: RENVELA PO SCH ×3 (08:55→17:19)
[2018-06-30] MEDS: PEPCID PO SCH (09:15)
[2018-06-30] MEDS: BABY ASPIRIN PO SCH (09:15)
[2018-06-30] MEDS: LIDODERM 5% TD SCH (09:16)
[2018-06-30] MEDS: ROCALTROL PO SCH (09:16)
[2018-06-30] MEDS: HEPARIN SUB-Q SCH ×2 (09:17→22:14)
[2018-06-30] MEDS: NACL 0.9% 1000 ML 1,000 ML IV SCH (09:18)
[2018-06-30] MEDS ORDERED: NON-FORMULARY (Simvastatin [Zocor] 20 MG) PO SCH (10:00)
--- NOTE | 2018-06-30 10:13 | Progress Note ---
Assessment and Plan Hypotension and possible sepsis Non-ST elevation [place] type II End-stage renal disease on peritoneal dialysis Venous sclerosis Diabetes Hyperlipidemia Recommend echo pending, pt on antibiotics and iv pressors, cont moniotor. Subjective Date of service: 06/30/18 Principal diagnosis: abnl trop Interval history: pt denies any chest pain or sob Objective Vital Signs Temp Pulse Pulse Pulse Resp Resp Resp 06/30/18 08:55 06/30/18 08:00 97.3 F L 94 H 15 06/30/18 07:45 94 H 13 06/30/18 07:30 96 H 15 06/30/18 07:15 94 H 17 06/30/18 07:00 94 H 15 06/30/18 06:45 94 H 13 06/30/18 06:30 94 H 13 06/30/18 06:15 94 H 12 06/30/18 06:00 93 H 13 06/30/18 05:45 95 H 11 L 06/30/18 05:30 89 14 06/30/18 05:15 95 H 13 06/30/18 05:00 93 H 14 06/30/18 04:45 93 H 13 06/30/18 04:30 93 H 13 06/30/18 04:15 91 H 13 06/30/18 04:00 97.8 F 94 H 12 06/30/18 03:45 94 H 13 06/30/18 03:30 93 H 18 06/30/18 03:15 92 H 13 06/30/18 03:01 90 15 06/30/18 02:45 88 16 06/30/18 02:30 88 14 06/30/18 02:15 87 12 06/30/18 02:00 87 16 06/30/18 01:45 87 13 06/30/18 01:31 85 22 06/30/18 01:15 82 20 06/30/18 01:01 87 16 06/30/18 00:45 90 14 06/30/18 00:30 93 H 14 06/30/18 00:15 92 H 15 06/30/18 00:00 97.9 F 92 H 15 06/29/18 23:45 94 H 16 06/29/18 23:30 95 H 13 06/29/18 23:15 93 H 14 06/29/18 23:00 92 H 14 06/29/18 22:45 96 H 13 06/29/18 22:30 94 H 14 06/29/18 22:15 89 14 06/29/18 22:00 91 H 14 06/29/18 21:45 89 18 06/29/18 21:30 92 H 15 06/29/18 21:15 87 13 06/29/18 21:00 91 H 15 06/29/18 20:45 90 15 06/29/18 20:31 92 H 20 06/29/18 20:24 06/29/18 20:15 89 13 06/29/18 20:00 97.3 F L 89 15 06/29/18 19:45 91 H 17 06/29/18 19:31 91 H 18 06/29/18 19:15 92 H 16 06/29/18 19:00 98 H 20 06/29/18 16:51 106 H 16 06/29/18 16:41 106 H 21 06/29/18 16:31 101 H 18 06/29/18 16:21 103 H 14 06/29/18 16:11 101 H 18 06/29/18 16:00 97.5 F L 98 H 19 06/29/18 15:51 100 H 18 06/29/18 15:41 99 H 19 06/29/18 15:31 99 H 18 06/29/18 15:21 94 H 20 06/29/18 15:11 101 H 18 06/29/18 15:00 103 H 19 06/29/18 14:51 104 H 17 06/29/18 14:41 110 H 15 06/29/18 14:30 105 H 20 06/29/18 14:21 101 H 20 06/29/18 14:11 104 H 21 06/29/18 14:01 105 H 19 06/29/18 13:50 113 H 18 06/29/18 12:00 97.6 F 06/29/18 11:36 06/29/18 11:16 122 H 116 H 19 19 06/29/18 11:00 110 H 16 BP BP BP BP Pulse Ox Pulse Ox Pulse Ox 06/30/18 08:55 99 06/30/18 08:00 96/54 100 06/30/18 07:45 99/51 100 06/30/18 07:30 99/51 100 06/30/18 07:15 86/51 100 03/24/19 07:00 78/53 100 06/30/18 06:45 75/47 100 06/30/18 06:30 73/48 100 06/30/18 06:15 83/54 100 06/30/18 06:00 87/57 100 06/30/18 05:45 95/49 100 06/30/18 05:30 92/59 100 06/30/18 05:15 91/54 99 06/30/18 05:00 93/56 100 06/30/18 04:45 75/46 100 06/30/18 04:30 81/47 100 06/30/18 04:15 92/54 100 06/30/18 04:00 99/56 100 06/30/18 03:45 83/52 100 06/30/18 03:30 103/55 100 06/30/18 03:15 98/47 100 06/30/18 03:01 101/51 100 06/30/18 02:45 99/61 100 06/30/18 02:30 92/54 100 06/30/18 02:15 92/62 100 06/30/18 02:00 102/71 100 06/30/18 01:45 99/61 100 06/30/18 01:31 96/47 100 06/30/18 01:15 98/56 100 06/30/18 01:01 89/49 100 06/30/18 00:45 86/34 100 06/30/18 00:30 87/47 100 06/30/18 00:15 87/58 100 06/30/18 00:00 93/54 100 06/29/18 23:45 95/61 100 06/29/18 23:30 87/53 97 06/29/18 23:15 88/52 100 06/29/18 23:00 91/57 99 06/29/18 22:45 77/44 99 06/29/18 22:30 93/48 99 06/29/18 22:15 116/48 100 06/29/18 22:00 107/65 100 06/29/18 21:45 104/63 100 06/29/18 21:30 98/65 100 06/29/18 21:15 105/55 100 06/29/18 21:00 100/62 100 06/29/18 20:45 93/56 83 L 06/29/18 20:31 104/47 97 06/29/18 20:24 100 06/29/18 20:15 95/54 100 06/29/18 20:00 84/40 100 06/29/18 19:45 103/57 100 06/29/18 19:31 95/71 93 06/29/18 19:15 81/48 23 L 06/29/18 19:00 83/52 92 06/29/18 16:51 116/73 89 06/29/18 16:41 123/95 82 L 06/29/18 16:31 123/95 06/29/18 16:21 123/95 91 06/29/18 16:11 123/95 06/29/18 16:00 123/95 52 L 06/29/18 15:51 123/44 06/29/18 15:41 123/44 100 06/29/18 15:31 119/74 06/29/18 15:21 119/74 06/29/18 15:11 100/50 100 06/29/18 15:00 102/61 100 06/29/18 14:51 100/50 100 06/29/18 14:41 111/59 97 06/29/18 14:30 111/59 06/29/18 14:21 112/62 06/29/18 14:11 94/56 06/29/18 14:01 94/56 06/29/18 13:50 06/29/18 12:00 06/29/18 11:36 100 06/29/18 11:16 95/58 95/58 100 100 06/29/18 11:00 101/66 95 - Physical Examination General: No Apparent Distress HEENT: Positive: PERRL, Mucus Membranes Moist Neck: Positive: neck supple, trachea midline Cardiac: Positive: Tachycardia Lungs: Positive: clear to auscultation Neuro: Positive: Grossly Intact Abdomen: Positive: Soft, Active Bowel Sounds. Negative: Tender, Distended Skin: Positive: Clear Incision: Cardiac Cath Site (left groin no hemtoma ) Musculoskeletal: No Pain, Normal Range of Motion Extremities: Present: normal. Absent: edema - Labs and Meds CBC 06/29/18 06/30/18 Range/Units 14:11 04:49 WBC 19.8 H 14.8 H (4.5-11.0) K/mm3 RBC 4.22 3.66 (3.65-5.03) M/mm3 Hgb 14.7 H 12.6 (10.1-14.3) gm/dl Hct 45.4 H 38.7 D (30.3-42.9) % Plt Count 179 147 (140-440) K/mm3 Comprehensive Metabolic Panel 06/29/18 06/30/18 Range/Units 13:30 04:49 Sodium 133 L 134 L (137-145) mmol/L Potassium 4.2 3.5 L (3.6-5.0) mmol/L Chloride 91.7 L 94.7 L (98-107) mmol/L Carbon Dioxide 20 L 23 (22-30) mmol/L BUN 33 H 30 H (7-17) mg/dL Creatinine 9.9 H 8.8 H (0.7-1.2) mg/dL Glucose 196 H 182 H (65-100) mg/dL Calcium 8.8 7.9 L (8.4-10.2) mg/dL - Imaging and Cardiology Echo: pending - Telemetry EKG Rhythm: Sinus Tachycardia
--- NOTE | 2018-06-30 12:29 | Progress Note ---
Assessment and Plan /SIRS without organ dysfunction - suspected sepsis on admission - Continue empiric antibiotics, folow blood culture report - No infiltrates noted on CTA chest/chest x-ray/VQ scan, patient does not make urine /Hypotension vs septic shock - on levophed, cont to wean off - ordered steroid x1 dose, will also order midodrine low dose /HLD, on statin /ESRD on PD, consulted renal /Diabetes type 2, diet controlled, SSI PLACED /Elevated troponin/NSTEMI type 2 - Ordered serial troponin, CPK level - Cardiology consulted for elevated troponin - wait for 2d echo /DVT Px, SCD The high probability of a clinically significant, sudden or life threatening deterioration of the [multiple] system(s) required my full and direct attention, intervention and personal management. The aggregate critical care time was [45] minutes. This time is in addition to time spent performing reported procedures but includes the following: [x] Data Review and interpretation [x] Patient assessment and monitoring of vital signs [x] Documentation [x] Medication orders and management Subjective Date of service: 06/30/18 Principal diagnosis: abnl trop Objective - Exam Narrative Exam: GENERAL: well-developed and well-nourished AAF lying on bed appeared to be in no discomfort. HEENT: Normocephalic. Atraumatic. No conjunctival congestion or icterus. Patient has moist mucous membranes. NECK: Supple. Trachea midline. CHEST/LUNGS: Clear to auscultated bilaterally, breathing nonlabored. No wheezes crackles or rhonchi. HEART/CARDIOVASCULAR: Regular in rate and rhythm. S1 and S2 positive. ABDOMEN: Abdomen is soft, nontender. Patient has normal bowel sounds. SKIN: There is no rash. Warm and dry. NEURO: No focal motor deficit. Follows command. MUSCULOSKELETAL: No joint effusion or tenderness. EXTRIMITY: No edema, no cyanosis or clubbing. PSYCH: Cooperative. - Constitutional Vitals: Vital Signs - 12hr 06/30/18 06/30/18 06/30/18 00:30 00:45 01:01 Temperature Pulse Rate 93 H 90 87 Respiratory 14 14 16 Rate Blood Pressure 87/47 86/34 89/49 O2 Sat by Pulse 100 100 100 Oximetry 06/30/18 06/30/18 06/30/18 01:15 01:31 01:45 Temperature Pulse Rate 82 85 87 Respiratory 20 22 13 Rate Blood Pressure 98/56 96/47 99/61 O2 Sat by Pulse 100 100 100 Oximetry 06/30/18 06/30/18 06/30/18 02:00 02:15 02:30 Temperature Pulse Rate 87 87 88 Respiratory 16 12 14 Rate Blood Pressure 102/71 92/62 92/54 O2 Sat by Pulse 100 100 100 Oximetry 06/30/18 06/30/18 06/30/18 02:45 03:01 03:15 Temperature Pulse Rate 88 90 92 H Respiratory 16 15 13 Rate Blood Pressure 99/61 101/51 98/47 O2 Sat by Pulse 100 100 100 Oximetry 06/30/18 06/30/18 06/30/18 03:30 03:45 04:00 Temperature 97.8 F Pulse Rate 93 H 94 H 94 H Respiratory 18 13 12 Rate Blood Pressure 103/55 83/52 99/56 O2 Sat by Pulse 100 100 100 Oximetry 06/30/18 06/30/18 06/30/18 04:15 04:30 04:45 Temperature Pulse Rate 91 H 93 H 93 H Respiratory 13 13 13 Rate Blood Pressure 92/54 81/47 75/46 O2 Sat by Pulse 100 100 100 Oximetry 06/30/18 06/30/18 06/30/18 05:00 05:15 05:30 Temperature Pulse Rate 93 H 95 H 89 Respiratory 14 13 14 Rate Blood Pressure 93/56 91/54 92/59 O2 Sat by Pulse 100 99 100 Oximetry 06/30/18 06/30/18 06/30/18 05:45 06:00 06:15 Temperature Pulse Rate 95 H 93 H 94 H Respiratory 11 L 13 12 Rate Blood Pressure 95/49 87/57 83/54 O2 Sat by Pulse 100 100 100 Oximetry 06/30/18 06/30/18 06/30/18 06:30 06:45 07:00 Temperature Pulse Rate 94 H 94 H 94 H Respiratory 13 13 15 Rate Blood Pressure 73/48 75/47 78/53 O2 Sat by Pulse 100 100 100 Oximetry 06/30/18 06/30/18 06/30/18 07:15 07:30 07:45 Temperature Pulse Rate 94 H 96 H 94 H Respiratory 17 15 13 Rate Blood Pressure 86/51 99/51 99/51 O2 Sat by Pulse 100 100 100 Oximetry 06/30/18 06/30/18 06/30/18 08:00 08:15 08:30 Temperature 97.3 F L Pulse Rate 94 H 94 H 105 H Respiratory 15 14 13 Rate Blood Pressure 96/54 97/57 99/51 O2 Sat by Pulse 100 100 99 Oximetry 06/30/18 06/30/18 06/30/18 08:45 08:55 09:00 Temperature Pulse Rate 107 H 104 H Respiratory 18 14 Rate Blood Pressure 99/53 101/57 O2 Sat by Pulse 99 99 100 Oximetry 06/30/18 06/30/18 06/30/18 09:15 09:30 09:45 Temperature Pulse Rate 102 H 102 H 103 H Respiratory 18 17 16 Rate Blood Pressure 89/48 87/56 97/47 O2 Sat by Pulse 100 100 100 Oximetry 06/30/18 06/30/18 06/30/18 10:00 10:16 10:30 Temperature Pulse Rate 104 H 101 H 97 H Respiratory 18 17 15 Rate Blood Pressure 97/47 98/52 111/57 O2 Sat by Pulse 100 100 100 Oximetry 06/30/18 10:45 Temperature Pulse Rate 92 H Respiratory 19 Rate Blood Pressure 116/64 O2 Sat by Pulse 100 Oximetry - Labs CBC & Chem 7: 06/30/18 04:49 06/30/18 04:49 Labs: Abnormal lab results 06/29/18 06/29/18 06/29/18 Range/Units 12:18 13:30 13:30 WBC (4.5-11.0) K/mm3 Hgb (10.1-14.3) gm/dl Hct (30.3-42.9) % MCV (79-97) fl MCH (28-32) pg RDW (13.2-15.2) % Seg Neuts % (Manual) (40.0-70.0) % Lymphocytes % (Manual) (13.4-35.0) % Seg Neutrophils # Man (1.8-7.7) K/mm3 Lymphocytes # (Manual) (1.2-5.4) K/mm3 Sodium 133 L (137-145) mmol/L Potassium (3.6-5.0) mmol/L Chloride 91.7 L (98-107) mmol/L Carbon Dioxide 20 L (22-30) mmol/L BUN 33 H (7-17) mg/dL Creatinine 9.9 H (0.7-1.2) mg/dL Glucose 196 H (65-100) mg/dL POC Glucose 168 H (70-105) Calcium (8.4-10.2) mg/dL Troponin T 0.073 H (0.00-0.029) ng/mL 06/29/18 06/29/18 06/29/18 Range/Units 14:11 16:36 20:37 WBC 19.8 H (4.5-11.0) K/mm3 Hgb 14.7 H (10.1-14.3) gm/dl Hct 45.4 H (30.3-42.9) % MCV 108 H (79-97) fl MCH 35 H (28-32) pg RDW 15.9 H (13.2-15.2) % Seg Neuts % (Manual) (40.0-70.0) % Lymphocytes % (Manual) (13.4-35.0) % Seg Neutrophils # Man (1.8-7.7) K/mm3 Lymphocytes # (Manual) (1.2-5.4) K/mm3 Sodium (137-145) mmol/L Potassium (3.6-5.0) mmol/L Chloride (98-107) mmol/L Carbon Dioxide (22-30) mmol/L BUN (7-17) mg/dL Creatinine (0.7-1.2) mg/dL Glucose (65-100) mg/dL POC Glucose 165 H (70-105) Calcium (8.4-10.2) mg/dL Troponin T 0.077 H (0.00-0.029) ng/mL 06/29/18 06/30/18 06/30/18 Range/Units 22:01 04:49 04:49 WBC 14.8 H (4.5-11.0) K/mm3 Hgb (10.1-14.3) gm/dl Hct (30.3-42.9) % MCV 106 H (79-97) fl MCH 35 H (28-32) pg RDW 15.5 H (13.2-15.2) % Seg Neuts % (Manual) 90.0 H (40.0-70.0) % Lymphocytes % (Manual) 5.0 L (13.4-35.0) % Seg Neutrophils # Man 13.3 H (1.8-7.7) K/mm3 Lymphocytes # (Manual) 0.7 L (1.2-5.4) K/mm3 Sodium 134 L (137-145) mmol/L Potassium 3.5 L (3.6-5.0) mmol/L Chloride 94.7 L (98-107) mmol/L Carbon Dioxide (22-30) mmol/L BUN 30 H (7-17) mg/dL Creatinine 8.8 H (0.7-1.2) mg/dL Glucose 182 H (65-100) mg/dL POC Glucose 202 H (70-105) Calcium 7.9 L (8.4-10.2) mg/dL Troponin T (0.00-0.029) ng/mL 06/30/18 Range/Units 08:27 WBC (4.5-11.0) K/mm3 Hgb (10.1-14.3) gm/dl Hct (30.3-42.9) % MCV (79-97) fl MCH (28-32) pg RDW (13.2-15.2) % Seg Neuts % (Manual) (40.0-70.0) % Lymphocytes % (Manual) (13.4-35.0) % Seg Neutrophils # Man (1.8-7.7) K/mm3 Lymphocytes # (Manual) (1.2-5.4) K/mm3 Sodium (137-145) mmol/L Potassium (3.6-5.0) mmol/L Chloride (98-107) mmol/L Carbon Dioxide (22-30) mmol/L BUN (7-17) mg/dL Creatinine (0.7-1.2) mg/dL Glucose (65-100) mg/dL POC Glucose 170 H (70-105) Calcium (8.4-10.2) mg/dL Troponin T (0.00-0.029) ng/mL
--- NOTE | 2018-06-30 12:43 | Progress Note ---
Assessment and Plan Assessment and Plan Severe sepsis withseptic shock HLD ESRD on PD Diabetes Elevated troponin/NSTEMI type 2 - Continue with critical ICU admission -Continue vasopressor support, wean for MAP>65 - Follow up cultures-PD fluid, blood -Broad spectrum empiric antibiotics until cultures and REJI are available -Volume resuscitation -Follow up on procalcitonin and CRP levels - Continue VTE prophylaxis -Nutritional support -ABG prn to assess acid-base balance - Nephrology for peritoneal dialysis - No infiltrates noted on CTA chest/chest x-ray/VQ scan -2D Echocardiography to evaluate EF and for pulmonary HTN, follow up on the report - will start stress dose steroids for probable sepsis induced relative adrenal insufficiency. -Once patient is off norepinephrine, femoral CVC to be discontinued -Get thyroid studies Discussed care plan with the patient and Attending physician. Discussed with RN at the bedside. CONDITION: CRITICAL PROGNOSIS: FAIR CODE STATUS: FULL The high probability of a clinically significant, sudden or life-threatening deterioration of the [cardiac,] system(s) required my full and direct attention, intervention and personal management. The aggregate critical care time was [31] minutes without overlap. Time includes spent on; [x] Data Review and interpretation [x] Patient assessment and monitoring of vital signs [x] Documentation [x] Medication orders and management Subjective Date of service: 06/30/18 Principal diagnosis: abnl trop Interval history: Patient is seen today for: Septic Shock (etiology unclear) with lactic acidosis and hypotension; Hyperlipidemia; ESRD on PD; Diabetes type 2; Elevated t roponin/NSTEMI type 2 Seen and examined at bedside; 24hour events reviewed; nursing and respiratory care staff consulted; no adverse overnight events reported to me; resting peacefully in bed; looks and feels better; remains on vasopressor support ; sisters are visiting; denies acute chest pains or palpitations; No N/V/F/C; Had an episode of hypotension during PD yesterday requiring an increasing doses on norepinephrine Objective - Exam Narrative Exam: GENERAL: well-developed and well-nourished pleasant AAF lying on bed appeared to be in no discomfort. HEENT: Normocephalic. Atraumatic. No conjunctival congestion or icterus. Patient has moist mucous membranes. NECK: Supple. Trachea midline. CHEST/LUNGS: Clear to auscultated bilaterally, breathing non labored. No wheezes crackles or rhonchi. HEART/CARDIOVASCULAR: Regular in rate and rhythm. S1 and S2 positive. ABDOMEN: Abdomen is soft, non tender. PD catheter, site is clean, no discharge Patient has normal bowel sounds. SKIN: There is no rash. Warm and dry. NEURO: No focal motor deficit. Follows command. MUSCULOSKELETAL: No joint effusion or tenderness. EXTRIMITY: No edema, no cyanosis or clubbing. PSYCH: Cooperative. Vital Signs - 12hr 06/30/18 06/30/18 06/30/18 00:45 01:01 01:15 Temperature Pulse Rate 90 87 82 Respiratory 14 16 20 Rate Blood Pressure 86/34 89/49 98/56 O2 Sat by Pulse 100 100 100 Oximetry 06/30/18 06/30/18 06/30/18 01:31 01:45 02:00 Temperature Pulse Rate 85 87 87 Respiratory 22 13 16 Rate Blood Pressure 96/47 99/61 102/71 O2 Sat by Pulse 100 100 100 Oximetry 06/30/18 06/30/18 06/30/18 02:15 02:30 02:45 Temperature Pulse Rate 87 88 88 Respiratory 12 14 16 Rate Blood Pressure 92/62 92/54 99/61 O2 Sat by Pulse 100 100 100 Oximetry 06/30/18 06/30/18 06/30/18 03:01 03:15 03:30 Temperature Pulse Rate 90 92 H 93 H Respiratory 15 13 18 Rate Blood Pressure 101/51 98/47 103/55 O2 Sat by Pulse 100 100 100 Oximetry 06/30/18 06/30/18 06/30/18 03:45 04:00 04:15 Temperature 97.8 F Pulse Rate 94 H 94 H 91 H Respiratory 13 12 13 Rate Blood Pressure 83/52 99/56 92/54 O2 Sat by Pulse 100 100 100 Oximetry 06/30/18 06/30/18 06/30/18 04:30 04:45 05:00 Temperature Pulse Rate 93 H 93 H 93 H Respiratory 13 13 14 Rate Blood Pressure 81/47 75/46 93/56 O2 Sat by Pulse 100 100 100 Oximetry 06/30/18 06/30/18 06/30/18 05:15 05:30 05:45 Temperature Pulse Rate 95 H 89 95 H Respiratory 13 14 11 L Rate Blood Pressure 91/54 92/59 95/49 O2 Sat by Pulse 99 100 100 Oximetry 03/06/30/18 06/30/18 06:00 06:15 06:30 Temperature Pulse Rate 93 H 94 H 94 H Respiratory 13 12 13 Rate Blood Pressure 87/57 83/54 73/48 O2 Sat by Pulse 100 100 100 Oximetry 06/30/18 06/30/18 06/30/18 06:45 07:00 07:15 Temperature Pulse Rate 94 H 94 H 94 H Respiratory 13 15 17 Rate Blood Pressure 75/47 78/53 86/51 O2 Sat by Pulse 100 100 100 Oximetry 06/30/18 06/30/18 06/30/18 07:30 07:45 08:00 Temperature 97.3 F L Pulse Rate 96 H 94 H 94 H Respiratory 15 13 15 Rate Blood Pressure 99/51 99/51 96/54 O2 Sat by Pulse 100 100 100 Oximetry 06/30/18 06/30/18 06/30/18 08:15 08:30 08:45 Temperature Pulse Rate 94 H 105 H 107 H Respiratory 14 13 18 Rate Blood Pressure 97/57 99/51 99/53 O2 Sat by Pulse 100 99 99 Oximetry 06/30/18 06/30/18 06/30/18 08:55 09:00 09:15 Temperature Pulse Rate 104 H 102 H Respiratory 14 18 Rate Blood Pressure 101/57 89/48 O2 Sat by Pulse 99 100 100 Oximetry 06/30/18 06/30/18 06/30/18 09:30 09:45 10:00 Temperature Pulse Rate 102 H 103 H 104 H Respiratory 17 16 18 Rate Blood Pressure 87/56 97/47 97/47 O2 Sat by Pulse 100 100 100 Oximetry 06/30/18 06/30/18 06/30/18 10:16 10:30 10:45 Temperature Pulse Rate 101 H 97 H 92 H Respiratory 17 15 19 Rate Blood Pressure 98/52 111/57 116/64 O2 Sat by Pulse 100 100 100 Oximetry CBC and BMP: 07/02/18 05:22 07/02/18 05:22 ABG, PT/INR, D-dimer: PT/INR, D-dimer D-Dimer > 02507 ng/mlDDU (0-234) H 06/28/18 22:26 Abnormal lab findings: Abnormal Labs 06/28/18 06/28/18 06/28/18 10:38 20:54 20:54 WBC 24.8 H Hgb 16.6 H Hct 50.3 H MCV 107 H MCH 35 H RDW 15.6 H Seg Neuts % (Manual) 95.0 H Lymphocytes % (Manual) 3.0 L Seg Neutrophils # Man 23.6 H Lymphocytes # (Manual) 0.7 L D-Dimer Sodium 131 L Potassium Chloride 89.6 L Carbon Dioxide 19 L BUN 29 H Creatinine 9.3 H Glucose 174 H POC Glucose Calcium ALT 5 L Troponin T 0.073 H Albumin 3.2 L Triglycerides 194 H HDL Cholesterol 68 H 06/28/18 06/29/18 06/29/18 22:26 12:18 13:30 WBC Hgb Hct MCV MCH RDW Seg Neuts % (Manual) Lymphocytes % (Manual) Seg Neutrophils # Man Lymphocytes # (Manual) D-Dimer > 84023 H Sodium Potassium Chloride Carbon Dioxide BUN Creatinine Glucose POC Glucose 168 H Calcium ALT Troponin T 0.073 H Albumin Triglycerides HDL Cholesterol 06/29/18 06/29/18 06/29/18 13:30 14:11 16:36 WBC 19.8 H Hgb 14.7 H Hct 45.4 H MCV 108 H MCH 35 H RDW 15.9 H Seg Neuts % (Manual) Lymphocytes % (Manual) Seg Neutrophils # Man Lymphocytes # (Manual) D-Dimer Sodium 133 L Potassium Chloride 91.7 L Carbon Dioxide 20 L BUN 33 H Creatinine 9.9 H Glucose 196 H POC Glucose 165 H Calcium ALT Troponin T Albumin Triglycerides HDL Cholesterol 06/29/18 06/29/18 06/30/18 20:37 22:01 04:49 WBC 14.8 H Hgb Hct MCV 106 H MCH 35 H RDW 15.5 H Seg Neuts % (Manual) 90.0 H Lymphocytes % (Manual) 5.0 L Seg Neutrophils # Man 13.3 H Lymphocytes # (Manual) 0.7 L D-Dimer Sodium Potassium Chloride Carbon Dioxide BUN Creatinine Glucose POC Glucose 202 H Calcium ALT Troponin T 0.077 H Albumin Triglycerides HDL Cholesterol 06/30/18 06/30/18 04:49 08:27 WBC Hgb Hct MCV MCH RDW Seg Neuts % (Manual) Lymphocytes % (Manual) Seg Neutrophils # Man Lymphocytes # (Manual) D-Dimer Sodium 134 L Potassium 3.5 L Chloride 94.7 L Carbon Dioxide BUN 30 H Creatinine 8.8 H Glucose 182 H POC Glucose 170 H Calcium 7.9 L ALT Troponin T Albumin Triglycerides HDL Cholesterol
--- NOTE | 2018-06-30 14:24 | Progress Note ---
Assessment and Plan Impression: * End stage renal disease on PD * Leukocytosis * Elevated troponin - r/o NSTEMI * Hypotension * Hypokalemia - resolved * Secondary hyperparathyroidism Plan: * Patient remains on Levophed. Will hold PD exchanges today. Note order for Midodrine * Continue IVF for gentle hydration - Hb 16.6 at admission - likely due to hemoconcentration from volume depletion * Empiric abx per primary team * Blood cx pending * Cardiology recommendations noted * Renal diet * Dose medications for renal function * Continue binders and calcitriol Subjective Date of service: 06/30/18 Principal diagnosis: abnl trop Interval history: Patient has no complaints today. Objective - Vital Signs Vital signs: Vital Signs - 12hr 06/30/18 06/30/18 06/30/18 02:30 02:45 03:01 Temperature Pulse Rate 88 88 90 Respiratory 14 16 15 Rate Blood Pressure 92/54 99/61 101/51 O2 Sat by Pulse 100 100 100 Oximetry 06/30/18 06/30/18 06/30/18 03:15 03:30 03:45 Temperature Pulse Rate 92 H 93 H 94 H Respiratory 13 18 13 Rate Blood Pressure 98/47 103/55 83/52 O2 Sat by Pulse 100 100 100 Oximetry 06/30/18 06/30/18 06/30/18 04:00 04:15 04:30 Temperature 97.8 F Pulse Rate 94 H 91 H 93 H Respiratory 12 13 13 Rate Blood Pressure 99/56 92/54 81/47 O2 Sat by Pulse 100 100 100 Oximetry 06/30/18 06/30/18 06/30/18 04:45 05:00 05:15 Temperature Pulse Rate 93 H 93 H 95 H Respiratory 13 14 13 Rate Blood Pressure 75/46 93/56 91/54 O2 Sat by Pulse 100 100 99 Oximetry 06/30/18 06/30/18 06/30/18 05:30 05:45 06:00 Temperature Pulse Rate 89 95 H 93 H Respiratory 14 11 L 13 Rate Blood Pressure 92/59 95/49 87/57 O2 Sat by Pulse 100 100 100 Oximetry 06/30/18 06/30/18 06/30/18 06:15 06:30 06:45 Temperature Pulse Rate 94 H 94 H 94 H Respiratory 12 13 13 Rate Blood Pressure 83/54 73/48 75/47 O2 Sat by Pulse 100 100 100 Oximetry 06/30/18 06/30/18 06/30/18 07:00 07:15 07:30 Temperature Pulse Rate 94 H 94 H 96 H Respiratory 15 17 15 Rate Blood Pressure 78/53 86/51 99/51 O2 Sat by Pulse 100 100 100 Oximetry 06/30/18 06/30/18 06/30/18 07:45 08:00 08:15 Temperature 97.3 F L Pulse Rate 94 H 94 H 94 H Respiratory 13 15 14 Rate Blood Pressure 99/51 96/54 97/57 O2 Sat by Pulse 100 100 100 Oximetry 06/30/18 06/30/18 06/30/18 08:30 08:45 08:55 Temperature Pulse Rate 105 H 107 H Respiratory 13 18 Rate Blood Pressure 99/51 99/53 O2 Sat by Pulse 99 99 99 Oximetry 06/30/18 06/30/18 06/30/18 09:00 09:15 09:30 Temperature Pulse Rate 104 H 102 H 102 H Respiratory 14 18 17 Rate Blood Pressure 101/57 89/48 87/56 O2 Sat by Pulse 100 100 100 Oximetry 06/30/18 06/30/18 06/30/18 09:45 10:00 10:16 Temperature Pulse Rate 103 H 104 H 101 H Respiratory 16 18 17 Rate Blood Pressure 97/47 97/47 98/52 O2 Sat by Pulse 100 100 100 Oximetry 06/30/18 06/30/18 06/30/18 10:30 10:45 11:00 Temperature Pulse Rate 97 H 92 H 91 H Respiratory 15 19 17 Rate Blood Pressure 111/57 116/64 113/65 O2 Sat by Pulse 100 100 100 Oximetry 06/30/18 06/30/18 06/30/18 11:15 11:30 11:45 Temperature Pulse Rate 87 75 80 Respiratory 14 17 17 Rate Blood Pressure 109/68 116/63 109/64 O2 Sat by Pulse 100 99 100 Oximetry 06/30/18 06/30/18 06/30/18 12:00 12:15 12:30 Temperature 98.4 F Pulse Rate 76 77 73 Respiratory 17 20 18 Rate Blood Pressure 117/63 106/74 109/62 O2 Sat by Pulse 100 100 100 Oximetry 06/30/18 06/30/18 12:45 13:00 Temperature Pulse Rate 90 85 Respiratory 14 12 Rate Blood Pressure 124/70 128/64 O2 Sat by Pulse 98 100 Oximetry - General Appearance General appearance: well-developed, well-nourished EENT: ATNC Respiratory: Present: Clear to Ascultation Cardiology: regular, S1S2 Gastrointestinal: normal, no tenderness, no distended Integumentary: no rash, warm and dry Neurologic: no focal deficit, alert and oriented x3 Psychiatric: cooperative - Lab 06/30/18 04:49 06/30/18 04:49 Most recent lab results Calcium 7.9 mg/dL (8.4-10.2) L 06/30/18 04:49 Medications & Allergies - Medications Allergies/Adverse Reactions: Allergies No Known Allergies Allergy (Verified 08/18/14 08:52) Home Medications: Home Medications Medication Instructions Recorded Confirmed Last Taken Type Aspirin [Aspirin BABY CHEW TAB] 81 mg PO QDAY #30 08/19/14 06/29/18 06/23/15 Rx Calcitriol [Rocaltrol] 0.5 mcg PO QDAY 06/29/18 06/29/18 Unknown History Potassium Chloride [Klor-Con M20] 20 meq PO DAILY 06/29/18 06/29/18 Unknown History Sevelamer Carbonate 1,600 mg PO TID 06/29/18 06/29/18 Unknown History Simvastatin [Zocor] 20 mg PO DAILY 06/29/18 06/29/18 Unknown History Active Medications: Generic Name Dose Route Start Last Admin Trade Name Freq PRN Reason Stop Dose Admin Aspirin 81 mg 06/29/18 13:00 06/30/18 09:15 Baby Aspirin PO 81 mg QDAY DIANE Administration Atorvastatin Calcium 40 mg 06/29/18 22:00 06/29/18 21:53 Lipitor PO 40 mg QHS DIANE Administration Calcitriol 0.5 mcg 06/29/18 13:00 06/30/18 09:16 Rocaltrol PO 0.5 mcg QDAY DIANE Administration Famotidine 10 mg 06/30/18 10:00 06/30/18 09:15 Pepcid PO 10 mg QDAY DIANE Administration Heparin Sodium (Porcine) 5,000 unit 06/29/18 13:00 06/30/18 09:17 Heparin SUB-Q 5,000 unit Q12HR DIANE Administration Norepinephrine 4 mg in 250 mls @ 37.5 mls/hr 06/29/18 05:30 06/30/18 13:01 Levophed Drip 4 Mg/Ns 250 Ml IV 2 mcg/min TITR DIANE 7.5 mls/hr Titration Protocol 10 MCG/MIN Sodium Chloride 1,000 mls @ 60 mls/hr 06/29/18 16:00 06/30/18 09:18 Nacl 0.9% 1000 Ml IV 60 mls/hr DIRECT DIANE Administration Ceftriaxone Sodium 2 gm in 100 mls @ 200 mls/hr 06/30/18 10:00 06/30/18 10:45 Rocephin/Ns 2 Gm/100 Ml IV 200 mls/hr Q24HR DIANE Administration Protocol Insulin Human Lispro 0 unit 06/29/18 22:00 06/30/18 13:11 Humalog SUB-Q Not Given ACHS DIANE Protocol Lidocaine 1 each 06/29/18 13:00 06/30/18 09:16 Lidoderm 5% TD 1 each QDAY DIANE Administration Midodrine 2.5 mg 06/30/18 16:00 Proamatine PO TID@0800,1200,1600 DIANE Peritoneal Dialysis Solution 2,000 ml 06/29/18 12:00 06/30/18 12:30 Dianeal Low Calcium W/1.5% Dextrose IP 2,000 ml Q6HR DIANE Administration Sevelamer Carbonate 1,600 mg 06/29/18 12:00 06/30/18 13:10 Renvela PO 1,600 mg TIDWM DIANE Administration
[2018-06-30] MEDS: PROAMATINE PO SCH (17:19)
[2018-07-01 08:04] LABS: Hemoglobin 11.5 gm/dl (10.1-14.3); Mean Corpuscular HGB Conc 33 % (30-34); Mean Corpuscular Volume 105 fl (79-97); Platelet Count 125 K/mm3 (140-440); Red Blood Count 3.32 M/mm3 (3.65-5.03); Red Cell Distribution Width 15.5 % (13.2-15.2)
[2018-07-01 08:08] LABS: Calcium 7.8 mg/dL (8.4-10.2)
[2018-07-01] MEDS: ROCALTROL PO SCH (09:07)
[2018-07-01] MEDS: RENVELA PO SCH ×4 (09:07→18:04)
[2018-07-01] MEDS: HEPARIN SUB-Q SCH ×2 (09:07→22:02)
[2018-07-01] MEDS: ROCEPHIN/NS 2 GM/100 ML 2 GM/100 ML BAG IV SCH (09:07)
[2018-07-01] MEDS: PEPCID PO SCH (09:08)
[2018-07-01] MEDS: BABY ASPIRIN PO SCH (09:08)
--- NOTE | 2018-07-01 09:08 | Progress Note ---
Assessment and Plan Impression: * End stage renal disease on PD * Leukocytosis --Blood cx: NGTD * Elevated troponin - r/o NSTEMI * Hypotension * Hypokalemia - resolved * Secondary hyperparathyroidism * Erythrocytosis, resolved - ?secondary to hemoconcentration vs other Plan: * Increase Midodrine to 10mg TID (was taking 10mg BID prior to admission) * Resume PD exchanges - 1.5% dextrose * Case discussed w/ Dr. Guerrero this AM - stress test once patient is no longer requiring Levophed * Will d/c IVF - Hb 16.6 at admission ?due to hemoconcentration from volume depl etion * Empiric abx per primary team * Renal diet * Dose medications for renal function * Continue binders and calcitriol Subjective Date of service: 07/01/18 Principal diagnosis: abnl trop Interval history: Patient has no complaint today. Objective - Vital Signs Vital signs: Vital Signs - 12hr 06/30/18 06/30/18 06/30/18 21:16 21:30 21:46 Temperature Pulse Rate 99 H 98 H 103 H Respiratory 14 16 16 Rate Blood Pressure 85/64 86/47 86/47 O2 Sat by Pulse 99 97 91 Oximetry 06/30/18 06/30/18 06/30/18 22:00 22:04 22:16 Temperature Pulse Rate 98 H 98 H 100 H Respiratory 15 15 17 Rate Blood Pressure 91/46 91/46 86/47 O2 Sat by Pulse 97 93 98 Oximetry 06/30/18 06/30/18 06/30/18 22:20 22:30 22:46 Temperature Pulse Rate 98 H 99 H 98 H Respiratory 21 16 15 Rate Blood Pressure 86/47 91/52 91/46 O2 Sat by Pulse 100 100 98 Oximetry 06/30/18 06/30/18 06/30/18 23:00 23:16 23:30 Temperature Pulse Rate 97 H 101 H 100 H Respiratory 17 22 18 Rate Blood Pressure 95/58 95/58 103/57 O2 Sat by Pulse 100 100 100 Oximetry 06/30/18 07/01/18 07/01/18 23:46 00:00 00:16 Temperature 98.1 F Pulse Rate 91 H 85 86 Respiratory 18 17 15 Rate Blood Pressure 103/57 98/50 98/50 O2 Sat by Pulse 100 100 100 Oximetry 07/01/18 07/01/1807/01/19 00:30 00:46 01:00 Temperature Pulse Rate 81 74 79 Respiratory 22 20 13 Rate Blood Pressure 92/48 92/48 75/41 O2 Sat by Pulse 92 98 97 Oximetry 07/01/18 07/01/18 07/01/18 01:16 01:30 01:46 Temperature Pulse Rate 66 59 L 65 Respiratory 14 15 11 L Rate Blood Pressure 92/48 91/49 75/41 O2 Sat by Pulse 99 84 86 Oximetry 07/01/18 07/01/18 07/01/18 02:00 02:16 02:30 Temperature Pulse Rate 56 L 62 67 Respiratory 12 22 14 Rate Blood Pressure 91/45 91/45 97/51 O2 Sat by Pulse 87 90 84 Oximetry 07/01/18 07/01/18 07/01/18 02:46 03:00 03:16 Temperature Pulse Rate 56 L 60 80 Respiratory 15 16 14 Rate Blood Pressure 97/51 102/44 97/51 O2 Sat by Pulse 100 100 100 Oximetry 07/01/18 07/01/18 07/01/18 03:30 03:46 04:00 Temperature 98.8 F Pulse Rate 55 L 64 55 L Respiratory 16 15 25 H Rate Blood Pressure 98/49 98/49 108/50 O2 Sat by Pulse 100 100 100 Oximetry 07/01/18 07/01/18 07/01/18 04:16 04:30 04:46 Temperature Pulse Rate 55 L 53 L 53 L Respiratory 20 23 13 Rate Blood Pressure 108/50 95/45 95/45 O2 Sat by Pulse 100 100 100 Oximetry 07/01/18 07/01/18 07/01/18 05:00 05:16 05:30 Temperature Pulse Rate 59 L 56 L 52 L Respiratory 14 22 13 Rate Blood Pressure 95/45 91/46 112/52 O2 Sat by Pulse 100 100 100 Oximetry 07/01/18 07/01/18 07/01/18 05:46 06:00 06:16 Temperature Pulse Rate 51 L 51 L 50 L Respiratory 20 22 13 Rate Blood Pressure 112/52 104/45 104/45 O2 Sat by Pulse 100 100 100 Oximetry 07/01/18 07/01/18 07/01/18 06:30 06:46 07:00 Temperature Pulse Rate 77 80 63 Respiratory 15 14 13 Rate Blood Pressure 114/56 114/56 113/47 O2 Sat by Pulse 100 84 100 Oximetry 07/01/18 07:16 Temperature Pulse Rate 71 Respiratory 14 Rate Blood Pressure 113/47 O2 Sat by Pulse 100 Oximetry - General Appearance General appearance: well-developed, well-nourished EENT: ATNC Respiratory: Present: Clear to Ascultation Cardiology: regular, S1S2 Gastrointestinal: normal, no tenderness, no distended Integumentary: no rash, warm and dry Neurologic: alert and oriented x3 Musculoskeletal: other (no edema) Psychiatric: cooperative - Lab 07/01/18 07:21 07/01/18 07:21 Most recent lab results Calcium 7.8 mg/dL (8.4-10.2) L 07/01/18 07:21 Medications & Allergies - Medications Allergies/Adverse Reactions: Allergies No Known Allergies Allergy (Verified 08/18/14 08:52) Home Medications: Home Medications Medication Instructions Recorded Confirmed Last Taken Type Aspirin [Aspirin BABY CHEW TAB] 81 mg PO QDAY #30 08/19/14 06/29/18 06/23/15 Rx Calcitriol [Rocaltrol] 0.5 mcg PO QDAY 06/29/18 06/29/18 Unknown History Potassium Chloride [Klor-Con M20] 20 meq PO DAILY 06/29/18 06/29/18 Unknown Hist ory Sevelamer Carbonate 1,600 mg PO TID 06/29/18 06/29/18 Unknown History Simvastatin [Zocor] 20 mg PO DAILY 06/29/18 06/29/18 Unknown History Active Medications: Generic Name Dose Route Start Last Admin Trade Name Freq PRN Reason Stop Dose Admin Aspirin 81 mg 06/29/18 13:00 06/30/18 09:15 Baby Aspirin PO 81 mg QDAY DIANE Administration Atorvastatin Calcium 40 mg 06/29/18 22:00 06/30/18 22:14 Lipitor PO 40 mg QHS DIANE Administration Calcitriol 0.5 mcg 06/29/18 13:00 06/30/18 09:16 Rocaltrol PO 0.5 mcg QDAY DIANE Administration Famotidine 10 mg 06/30/18 10:00 06/30/18 09:15 Pepcid PO 10 mg QDAY DIANE Administration Heparin Sodium (Porcine) 5,000 unit 06/29/18 13:00 06/30/18 22:14 Heparin SUB-Q 5,000 unit Q12HR DIANE Administration Norepinephrine 4 mg in 250 mls @ 37.5 mls/hr 06/29/18 05:30 06/30/18 14:05 Levophed Drip 4 Mg/Ns 250 Ml IV 0 mcg/min TITR DIANE 0 mls/hr Titration Protocol 10 MCG/MIN Sodium Chloride 1,000 mls @ 60 mls/hr 06/29/18 16:00 06/30/18 09:18 Nacl 0.9% 1000 Ml IV 60 mls/hr DIRECT DIANE Administration Ceftriaxone Sodium 2 gm in 100 mls @ 200 mls/hr 06/30/18 10:00 06/30/18 10:45 Rocephin/Ns 2 Gm/100 Ml IV 200 mls/hr Q24HR DIANE Administration Protocol Insulin Human Lispro 0 unit 06/29/18 22:00 06/30/18 22:14 Humalog SUB-Q 2 unit ACHS DIANE Administration Protocol Lidocaine 1 each 06/29/18 13:00 06/30/18 09:16 Lidoderm 5% TD 1 each QDAY DIANE Administration Midodrine 2.5 mg 06/30/18 16:00 06/30/18 17:19 Proamatine PO 2.5 mg TID@0800,1200,1600 DIANE Administration Sevelamer Carbonate 1,600 mg 06/29/18 12:00 06/30/18 17:19 Renvela PO 1,600 mg TIDWM DIANE Administration
[2018-07-01] MEDS: HumaLOG SUB-Q SCH ×4 (09:09→22:03)
[2018-07-01] MEDS: PROAMATINE PO SCH ×3 (09:17→21:00)
[2018-07-01] MEDS: DIANEAL LOW CALCIUM W/1.5% DEXTROSE IP SCH ×4 (09:49→22:14)
[2018-07-01] MEDS ORDERED: PROAMATINE PO SCH (10:00)
[2018-07-01] MEDS: LIDODERM 5% TD SCH (10:40)
--- NOTE | 2018-07-01 10:41 | Progress Note ---
Assessment and Plan /SIRS without organ dysfunction - suspected sepsis on admission - Continue empiric antibiotics, folow blood culture report - No infiltrates noted on CTA chest/chest x-ray/VQ scan, patient does not make urine /Hypotension vs septic shock - Patient was placed on levophed, now wean off - ordered steroid x1 dose, cont midodrine for now /HLD, on statin /ESRD on PD, consulted renal /Diabetes type 2, diet controlled, SSI PLACED as needed ACHS /Elevated troponin/NSTEMI type 2 - Ordered serial troponin, CPK level - Cardiology consulted for elevated troponin - preserved Ef on 2d echo, plan for stress test tomorrow /DVT Px, SCD The high probability of a clinically significant, sudden or life threatening de terioration of the [multiple] system(s) required my full and direct attention, intervention and personal management. The aggregate critical care time was [45] minutes. This time is in addition to time spent performing reported procedures but includes the following: [x] Data Review and interpretation [x] Patient assessment and monitoring of vital signs [x] Documentation [x] Medication orders and management Brief History: Patient is a 67-year-old female past medical history of end-stage renal disease on peritoneal dialysis, hypertension hyperlipidemia, diabetes mellitus type 2 on diet control, s/p right hip and left knee replacement presented to ER by EMS after having a fall around 9 AM in the morning but she had no loss of consciousness or hit her head. she was sitting on bed and accidentaly "slid to ground". She was unable to get up from the bed as she was feeling very weak in her legs. Her family called emergency services to break into her house around 5pm. She was then brought to the ER for further evaluation and management . She noted to have highly elevated d-dimer, elevated white count. In the ED, patient was hypotensive w/ WBC 24.8. CTA chest was unremarkable. V/Q scan was also low prob PE. She denies fever, chills, PD fluid has been clear. She was placed on Levophed, given IV Rocephin and then called for admission for further evaluation and management. Cx negative todate, weaned off levophed, s/p PD by renal. Transferred out off the ICU today, ordered PT eval. Subjective Date of service: 07/01/18 Principal diagnosis: abnl trop Interval history: Patient seen and examined tolerating diet, denies any chest pain states that she is feeling better off levophed, transfer out off ICU today Objective - Exam Narrative Exam: GENERAL: well-developed and well-nourished AAF lying on bed appeared to be in no discomfort. HEENT: Normocephalic. Atraumatic. No conjunctival congestion or icterus. Patient has moist mucous membranes. NECK: Supple. Trachea midline. CHEST/LUNGS: Clear to auscultated bilaterally, breathing nonlabored. No wheezes crackles or rhonchi. HEART/CARDIOVASCULAR: Regular in rate and rhythm. S1 and S2 positive. ABDOMEN: Abdomen is soft, nontender. Patient has normal bowel sounds. SKIN: There is no rash. Warm and dry. NEURO: No focal motor deficit. Follows command. MUSCULOSKELETAL: No joint effusion or tenderness. EXTRIMITY: No edema, no cyanosis or clubbing. PSYCH: Cooperative. - Constitutional Vitals: Vital Signs - 12hr 06/30/18 06/30/18 06/30/18 22:46 23:00 23:16 Temperature Pulse Rate 98 H 97 H 101 H Respiratory 15 17 22 Rate Blood Pressure 91/46 95/58 95/58 O2 Sat by Pulse 98 100 100 Oximetry 06/30/18 06/30/18 07/01/18 23:30 23:46 00:00 Temperature 98.1 F Pulse Rate 100 H 91 H 85 Respiratory 18 18 17 Rate Blood Pressure 103/57 103/57 98/50 O2 Sat by Pulse 100 100 100 Oximetry 07/01/18 07/01/18 07/01/18 00:16 00:30 00:46 Temperature Pulse Rate 86 81 74 Respiratory 15 22 20 Rate Blood Pressure 98/50 92/48 92/48 O2 Sat by Pulse 100 92 98 Oximetry 07/01/18 07/01/18 07/01/18 01:00 01:16 01:30 Temperature Pulse Rate 79 66 59 L Respiratory 13 14 15 Rate Blood Pressure 75/41 92/48 91/49 O2 Sat by Pulse 97 99 84 Oximetry 07/01/18 07/01/18 07/01/18 01:46 02:00 02:16 Temperature Pulse Rate 65 56 L 62 Respiratory 11 L 12 22 Rate Blood Pressure 75/41 91/45 91/45 O2 Sat by Pulse 86 87 90 Oximetry 07/01/18 07/01/1807/01/19 02:30 02:46 03:00 Temperature Pulse Rate 67 56 L 60 Respiratory 14 15 16 Rate Blood Pressure 97/51 97/51 102/44 O2 Sat by Pulse 84 100 100 Oximetry 07/01/18 07/01/18 07/01/18 03:16 03:30 03:46 Temperature Pulse Rate 80 55 L 64 Respiratory 14 16 15 Rate Blood Pressure 97/51 98/49 98/49 O2 Sat by Pulse 100 100 100 Oximetry 07/01/18 07/01/18 07/01/18 04:00 04:16 04:30 Temperature 98.8 F Pulse Rate 55 L 55 L 53 L Respiratory 25 H 20 23 Rate Blood Pressure 108/50 108/50 95/45 O2 Sat by Pulse 100 100 100 Oximetry 07/01/18 07/01/18 07/01/18 04:46 05:00 05:16 Temperature Pulse Rate 53 L 59 L 56 L Respiratory 13 14 22 Rate Blood Pressure 95/45 95/45 91/46 O2 Sat by Pulse 100 100 100 Oximetry 07/01/18 07/01/18 07/01/18 05:30 05:46 06:00 Temperature Pulse Rate 52 L 51 L 51 L Respiratory 13 20 22 Rate Blood Pressure 112/52 112/52 104/45 O2 Sat by Pulse 100 100 100 Oximetry 07/01/18 07/01/18 07/01/18 06:16 06:30 06:46 Temperature Pulse Rate 50 L 77 80 Respiratory 13 15 14 Rate Blood Pressure 104/45 114/56 114/56 O2 Sat by Pulse 100 100 84 Oximetry 07/01/18 07/01/18 07/01/18 07:00 07:16 07:30 Temperature Pulse Rate 63 71 60 Respiratory 13 14 12 Rate Blood Pressure 113/47 113/47 115/51 O2 Sat by Pulse 100 100 Oximetry 07/01/18 07/01/18 07/01/18 07:46 08:00 08:16 Temperature 98.1 F Pulse Rate 58 L 65 55 L Respiratory 14 14 13 Rate Blood Pressure 115/51 114/51 114/51 O2 Sat by Pulse 100 100 100 Oximetry 07/01/18 07/01/18 07/01/18 08:30 08:46 09:00 Temperature Pulse Rate 83 59 L 83 Respiratory 13 16 12 Rate Blood Pressure 125/61 125/61 114/48 O2 Sat by Pulse 94 100 100 Oximetry 07/01/18 09:16 Temperature Pulse Rate 78 Respiratory 15 Rate Blood Pressure 114/48 O2 Sat by Pulse 100 Oximetry - Labs CBC & Chem 7: 07/01/18 07:21 07/01/18 07:21 Labs: Abnormal lab results 06/30/18 06/30/18 06/30/18 Range/Units 12:17 16:44 22:06 WBC (4.5-11.0) K/mm3 RBC (3.65-5.03) M/mm3 MCV (79-97) fl MCH (28-32) pg RDW (13.2-15.2) % Plt Count (140-440) K/mm3 Sodium (137-145) mmol/L Chloride (98-107) mmol/L BUN (7-17) mg/dL Creatinine (0.7-1.2) mg/dL Glucose (65-100) mg/dL POC Glucose 145 H 155 H 174 H (70-105) Calcium (8.4-10.2) mg/dL 07/01/18 07/01/18 07/01/18 Range/Units 07:21 07:21 08:22 WBC 11.8 H (4.5-11.0) K/mm3 RBC 3.32 L (3.65-5.03) M/mm3 MCV 105 H (79-97) fl MCH 35 H (28-32) pg RDW 15.5 H (13.2-15.2) % Plt Count 125 L (140-440) K/mm3 Sodium 134 L (137-145) mmol/L Chloride 95.9 L (98-107) mmol/L BUN 31 H (7-17) mg/dL Creatinine 8.4 H (0.7-1.2) mg/dL Glucose 151 H (65-100) mg/dL POC Glucose 117 H (70-105) Calcium 7.8 L (8.4-10.2) mg/dL
--- NOTE | 2018-07-01 11:10 | Progress Note ---
Assessment and Plan SIRS Hypotension vs septic shock HLD, on statin ESRD on PD Diabetes type 2 Elevated troponin/NSTEMI type 2 - get abdomen CT abd/pelvis +/- paracentesis to evaluate for SBP - continue midodrine - resume levophed if MAP < 65 mmHg - discontinue right femoral line - get CRP & Lactate levels to aid clinical decision making (lactate was trending down) - continue gentle hydration - prn BIPAP - continue glycemic control with accuchecks and SSI for target BG 140 - 180 mg/dl - stop stress dose steroids - contine empiric AB's and de-escalate based on clinical and microbiologic data - PD prescription per cannon fire direction specialist - continue chronic med's including statin therapy - NSTEMI per cardiology - GI & VTE prophylaxis - continue other care per attending / other consultants .... re-evaluate in am & prn .... 38' care time Subjective Date of service: 07/01/18 Principal diagnosis: Septic Shock; ESRD on PD; Diabetes type 2; Elevated troponin/NSTEMI type 2 Interval history: Patient is seen today for: Septic Shock (etiology unclear) with lactic acidosis and hypotension; Hyperlipidemia; ESRD on PD; Diabetes type 2; Elevated troponin/NSTEMI type 2 Seen and examined at bedside; 24hour events reviewed; nursing and respiratory care staff consulted; no adverse overnight events reported to me; resting peacefully in bed; looks and feels better; weaned off levophed; sister's visiting; denies acute chest pains or palpitations; No N/V/F/C; started on midodrine Objective Vital Signs - 12hr 06/30/18 06/30/18 06/30/18 23:16 23:30 23:46 Temperature Pulse Rate 101 H 100 H 91 H Respiratory 22 18 18 Rate Blood Pressure 95/58 103/57 103/57 O2 Sat by Pulse 100 100 100 Oximetry 07/01/18 07/01/18 07/01/18 00:00 00:16 00:30 Temperature 98.1 F Pulse Rate 85 86 81 Respiratory 17 15 22 Rate Blood Pressure 98/50 98/50 92/48 O2 Sat by Pulse 100 100 92 Oximetry 07/01/18 07/01/18 07/01/18 00:46 01:00 01:16 Temperature Pulse Rate 74 79 66 Respiratory 20 13 14 Rate Blood Pressure 92/48 75/41 92/48 O2 Sat by Pulse 98 97 99 Oximetry 07/01/18 07/01/18 07/01/18 01:30 01:46 02:00 Temperature Pulse Rate 59 L 65 56 L Respiratory 15 11 L 12 Rate Blood Pressure 91/49 75/41 91/45 O2 Sat by Pulse 84 86 87 Oximetry 07/01/18 07/01/18 07/01/18 02:16 02:30 02:46 Temperature Pulse Rate 62 67 56 L Respiratory 22 14 15 Rate Blood Pressure 91/45 97/51 97/51 O2 Sat by Pulse 90 84 100 Oximetry 07/01/18 07/01/18 07/01/18 03:00 03:16 03:30 Temperature Pulse Rate 60 80 55 L Respiratory 16 14 16 Rate Blood Pressure 102/44 97/51 98/49 O2 Sat by Pulse 100 100 100 Oximetry 07/01/18 07/01/18 07/01/18 03:46 04:00 04:16 Temperature 98.8 F Pulse Rate 64 55 L 55 L Respiratory 15 25 H 20 Rate Blood Pressure 98/49 108/50 108/50 O2 Sat by Pulse 100 100 100 Oximetry 07/01/18 07/01/18 07/01/18 04:30 04:46 05:00 Temperature Pulse Rate 53 L 53 L 59 L Respiratory 23 13 14 Rate Blood Pressure 95/45 95/45 95/45 O2 Sat by Pulse 100 100 100 Oximetry 07/01/18 07/01/18 07/01/18 05:16 05:30 05:46 Temperature Pulse Rate 56 L 52 L 51 L Respiratory 22 13 20 Rate Blood Pressure 91/46 112/52 112/52 O2 Sat by Pulse 100 100 100 Oximetry 07/01/18 07/01/18 07/01/18 06:00 06:16 06:30 Temperature Pulse Rate 51 L 50 L 77 Respiratory 22 13 15 Rate Blood Pressure 104/45 104/45 114/56 O2 Sat by Pulse 100 100 100 Oximetry 07/01/18 07/01/18 07/01/18 06:46 07:00 07:16 Temperature Pulse Rate 80 63 71 Respiratory 14 13 14 Rate Blood Pressure 114/56 113/47 113/47 O2 Sat by Pulse 84 100 100 Oximetry 07/01/18 07/01/18 07/01/18 07:30 07:46 08:00 Temperature 98.1 F Pulse Rate 60 58 L 65 Respiratory 12 14 14 Rate Blood Pressure 115/51 115/51 114/51 O2 Sat by Pulse 100 100 Oximetry 07/01/18 07/01/18 07/01/18 08:16 08:30 08:46 Temperature Pulse Rate 55 L 83 59 L Respiratory 13 13 16 Rate Blood Pressure 114/51 125/61 125/61 O2 Sat by Pulse 100 94 100 Oximetry 07/01/18 07/01/18 07/01/18 09:00 09:16 09:27 Temperature Pulse Rate 83 78 Respiratory 12 15 Rate Blood Pressure 114/48 114/48 O2 Sat by Pulse 100 100 100 Oximetry Constitutional: no acute distress, alert, other (elderly looking obese AAF, normocephalic and atraumatic with mildly increased resp effort at rest) Eyes: non-icteric ENT: oropharynx moist, other (mallampati 3) Neck: supple, no lymphadenopathy, no JVD, other (large neck circumference) Effort: mildly labored Ascultation: Bilateral: diminished breath sounds, rhonchi (scant in bases) Percussion: Bilateral: not dull Cardiovascular: regular rate and rhythm, other (No R/M) Gastrointestinal: normoactive bowel sounds, soft, non-tender, non-distended, other (No HSM) Integumentary: normal Extremities: no cyanosis, no edema, pulses normal, no ischemia or petechiae Neurologic: normal mental status, non-focal exam (grossly), pupils equal and rou nd, motor strength normal and Psychiatric: mood appropriate, affect normal CBC and BMP: 07/01/18 07:21 07/01/18 07:21 ABG, PT/INR, D-dimer: PT/INR, D-dimer D-Dimer > 63461 ng/mlDDU (0-234) H 06/28/18 22:26 Abnormal lab findings: Abnormal Labs 06/28/18 06/28/18 06/28/18 10:38 20:54 20:54 WBC 24.8 H RBC Hgb 16.6 H Hct 50.3 H MCV 107 H MCH 35 H RDW 15.6 H Plt Count Seg Neuts % (Manual) 95.0 H Lymphocytes % (Manual) 3.0 L Seg Neutrophils # Man 23.6 H Lymphocytes # (Manual) 0.7 L D-Dimer Sodium 131 L Potassium Chloride 89.6 L Carbon Dioxide 19 L BUN 29 H Creatinine 9.3 H Glucose 174 H POC Glucose Calcium ALT 5 L Troponin T 0.073 H Albumin 3.2 L Triglycerides 194 H HDL Cholesterol 68 H 06/28/18 06/29/18 06/29/18 22:26 12:18 13:30 WBC RBC Hgb Hct MCV MCH RDW Plt Count Seg Neuts % (Manual) Lymphocytes % (Manual) Seg Neutrophils # Man Lymphocytes # (Manual) D-Dimer > 19896 H Sodium Potassium Chloride Carbon Dioxide BUN Creatinine Glucose POC Glucose 168 H Calcium ALT Troponin T 0.073 H Albumin Triglycerides HDL Cholesterol 06/29/18 06/29/18 06/29/18 13:30 14:11 16:36 WBC 19.8 H RBC Hgb 14.7 H Hct 45.4 H MCV 108 H MCH 35 H RDW 15.9 H Plt Count Seg Neuts % (Manual) Lymphocytes % (Manual) Seg Neutrophils # Man Lymphocytes # (Manual) D-Dimer Sodium 133 L Potassium Chloride 91.7 L Carbon Dioxide 20 L BUN 33 H Creatinine 9.9 H Glucose 196 H POC Glucose 165 H Calcium ALT Troponin T Albumin Triglycerides HDL Cholesterol 06/29/18 06/29/18 06/30/18 20:37 22:01 04:49 WBC 14.8 H RBC Hgb Hct MCV 106 H MCH 35 H RDW 15.5 H Plt Count Seg Neuts % (Manual) 90.0 H Lymphocytes % (Manual) 5.0 L Seg Neutrophils # Man 13.3 H Lymphocytes # (Manual) 0.7 L D-Dimer Sodium Potassium Chloride Carbon Dioxide BUN Creatinine Glucose POC Glucose 202 H Calcium ALT Troponin T 0.077 H Albumin Triglycerides HDL Cholesterol 06/30/18 06/30/18 06/30/18 04:49 08:27 12:17 WBC RBC Hgb Hct MCV MCH RDW Plt Count Seg Neuts % (Manual) Lymphocytes % (Manual) Seg Neutrophils # Man Lymphocytes # (Manual) D-Dimer Sodium 134 L Potassium 3.5 L Chloride 94.7 L Carbon Dioxide BUN 30 H Creatinine 8.8 H Glucose 182 H POC Glucose 170 H 145 H Calcium 7.9 L ALT Troponin T Albumin Triglycerides HDL Cholesterol 06/30/18 06/30/18 07/01/18 16:44 22:06 07:21 WBC 11.8 H RBC 3.32 L Hgb Hct MCV 105 H MCH 35 H RDW 15.5 H Plt Count 125 L Seg Neuts % (Manual) Lymphocytes % (Manual) Seg Neutrophils # Man Lymphocytes # (Manual) D-Dimer Sodium Potassium Chloride Carbon Dioxide BUN Creatinine Glucose POC Glucose 155 H 174 H Calcium ALT Troponin T Albumin Triglycerides HDL Cholesterol 07/01/18 07/01/18 07:21 08:22 WBC RBC Hgb Hct MCV MCH RDW Plt Count Seg Neuts % (Manual) Lymphocytes % (Manual) Seg Neutrophils # Man Lymphocytes # (Manual) D-Dimer Sodium 134 L Potassium Chloride 95.9 L Carbon Dioxide BUN 31 H Creatinine 8.4 H Glucose 151 H POC Glucose 117 H Calcium 7.8 L ALT Troponin T Albumin Triglycerides HDL Cholesterol Chest x-ray: image reviewed (LLL small volume platelike atelectasis; cardiomegaly) Allied health notes reviewed: nursing
--- NOTE | 2018-07-01 13:57 | Progress Note ---
Assessment and Plan Echo reviewed - EF 55-60%, trace TR, RVSP 32mmHg. Pt weaned off vasopressors. Femoral line to be d/c'd today. Plan for lexiscan MPI stress test in AM. NPO after MN. The patient has been seen in conjunction with Dr. Nancie Jacob who agrees with the assessment and plan of care. - Patient Problems (1) Sepsis Current Visit: Yes Status: Suspected (2) Sepsis associated hypotension Current Visit: Yes Status: Suspected (3) NSTEMI (non-ST elevated myocardial infarction) Current Visit: Yes Status: Acute Plan to address problem: type 2 (4) ESRD on peritoneal dialysis Current Visit: Yes Status: Chronic (5) Hyperlipidemia Current Visit: Yes Status: Chronic (6) Diabetes Current Visit: Yes Status: Chronic Subjective Date of service: 07/01/18 Principal diagnosis: abnl trop Interval history: pt resting in bed, A&O, states she is feeling much better today. weaned off vasopressors. Objective Last Vital Signs Temp 98.6 F 07/01/18 12:00 Pulse 78 07/01/18 09:16 Resp 15 07/01/18 09:16 BP 114/48 07/01/18 09:16 Pulse Ox 100 07/01/18 09:27 - Physical Examination General: No Apparent Distress HEENT: Positive: PERRL, Mucus Membranes Moist Neck: Positive: neck supple, trachea midline Cardiac: Positive: Reg Rate and Rhythm, S1/S2 Lungs: Positive: Decreased Breath Sounds Neuro: Positive: Grossly Intact Abdomen: Positive: Soft, Active Bowel Sounds. Negative: Tender, Distended Skin: Positive: Clear Incision: Cardiac Cath Site (left groin no hemtoma ) Musculoskeletal: No Pain, Normal Range of Motion Extremities: Present: normal. Absent: edema - Labs and Meds CBC 07/01/18 Range/Units 07:21 WBC 11.8 H (4.5-11.0) K/mm3 RBC 3.32 L (3.65-5.03) M/mm3 Hgb 11.5 (10.1-14.3) gm/dl Hct 35.0 (30.3-42.9) % Plt Count 125 L (140-440) K/mm3 Comprehensive Metabolic Panel 07/01/18 Range/Units 07:21 Sodium 134 L (137-145) mmol/L Potassium 3.8 (3.6-5.0) mmol/L Chloride 95.9 L (98-107) mmol/L Carbon Dioxide 24 (22-30) mmol/L BUN 31 H (7-17) mg/dL Creatinine 8.4 H (0.7-1.2) mg/dL Glucose 151 H (65-100) mg/dL Calcium 7.8 L (8.4-10.2) mg/dL - Imaging and Cardiology Echo: pending
[2018-07-01] MEDS ORDERED: DULCOLAX PR PRN (23:00)
[2018-07-01] MEDS ORDERED: DULCOLAX PR ONE (23:43)
[2018-07-02 05:37] LABS: Hematocrit 36.9 % (30.3-42.9); Hemoglobin 12.2 gm/dl (10.1-14.3); Mean Corpuscular HGB Conc 33 % (30-34); Mean Corpuscular Volume 105 fl (79-97); Platelet Count 132 K/mm3 (140-440); Red Blood Count 3.51 M/mm3 (3.65-5.03); Red Cell Distribution Width 15.1 % (13.2-15.2)
[2018-07-02 05:53] LABS: Calcium 7.7 mg/dL (8.4-10.2)
[2018-07-02 06:26] LABS: Band Neutrophils # (Manual) 0.5 K/mm3; Basophils % (Manual) 0 % (0.0-1.8); Eosinophils % (Manual) 0 % (0.0-4.3); Total Cells Counted 100
[2018-07-02 06:27] LABS: Platelet Estimate Consistent w Auto
[2018-07-02] MEDS: RENVELA PO SCH ×3 (08:00→17:01)
[2018-07-02] MEDS: PROAMATINE PO SCH ×3 (08:00→20:00)
[2018-07-02] MEDS: HumaLOG SUB-Q SCH ×4 (08:07→22:00)
--- NOTE | 2018-07-02 08:37 | Progress Note ---
Assessment and Plan Impression: * End stage renal disease on PD * Leukocytosis --Blood cx: NGTD * Elevated troponin - r/o NSTEMI * Hypotension * Hypokalemia - resolved * Secondary hyperparathyroidism * Erythrocytosis, resolved - ?secondary to hemoconcentration vs other Plan: * Continue Midodrine to 10mg TID (was taking 10mg BID prior to admission) * Continue PD exchanges - 1.5% dextrose * Have ordered PD effluent cell count and cx - doubt peritonitis as patient is asx and PD fluid has been clear * Case discussed w/ Dr. Guerrero - stress test once patient is no longer requiring Levophed * Empiric abx per primary team * Renal diet * Dose medications for renal function * Continue binders and calcitriol Subjective Date of service: 07/02/18 Principal diagnosis: abnl trop Interval history: Patient off the floor at time of visit. Objective - Exam Narrative Exam: Deferred - Vital Signs Vital signs: Vital Signs - 12hr 07/01/18 07/02/18 22:00 04:51 Temperature 99.1 F Pulse Rate 69 104 H Respiratory 20 Rate Blood Pressure 88/42 O2 Sat by Pulse 100 Oximetry - Lab 07/02/18 05:22 07/02/18 05:22 Most recent lab results Calcium 7.7 mg/dL (8.4-10.2) L 07/02/18 05:22 Medications & Allergies - Medications Allergies/Adverse Reactions: Allergies No Known Allergies Allergy (Verified 08/18/14 08:52) Home Medications: Home Medications Medication Instructions Recorded Confirmed Last Taken Type Aspirin [Aspirin BABY CHEW TAB] 81 mg PO QDAY #30 08/19/14 06/29/18 06/23/15 Rx Calcitriol [Rocaltrol] 0.5 mcg PO QDAY 06/29/18 06/29/18 Unknown History Potassium Chloride [Klor-Con M20] 20 meq PO DAILY 06/29/18 06/29/18 Unknown History Sevelamer Carbonate 1,600 mg PO TID 06/29/18 06/29/18 Unknown History Simvastatin [Zocor] 20 mg PO DAILY 06/29/18 06/29/18 Unknown History Active Medications: Generic Name Dose Route Start Last Admin Trade Name Freq PRN Reason Stop Dose Admin Aspirin 81 mg 06/29/18 13:00 07/01/18 09:08 Baby Aspirin PO 81 mg QDAY DIANE Administration Atorvastatin Calcium 40 mg 06/29/18 22:00 07/01/18 22:02 Lipitor PO 40 mg QHS DIANE Administration Calcitriol 0.5 mcg 06/29/18 13:00 07/01/18 09:07 Rocaltrol PO 0.5 mcg QDAY DIANE Administration Docusate Sodium 100 mg 07/02/18 10:00 Colace PO BID DIANE Famotidine 10 mg 06/30/18 10:00 07/01/18 09:08 Pepcid PO 10 mg QDAY DIANE Administration Heparin Sodium (Porcine) 5,000 unit 06/29/18 13:00 07/01/18 22:02 Heparin SUB-Q 5,000 unit Q12HR DIANE Administration Ceftriaxone Sodium 2 gm in 100 mls @ 200 mls/hr 06/30/18 10:00 07/01/18 09:07 Rocephin/Ns 2 Gm/100 Ml IV 07/04/18 10:29 200 mls/hr Q24HR DIANE Administration Protocol Insulin Human Lispro 0 unit 06/29/18 22:00 07/02/18 08:07 Humalog SUB-Q Not Given ACHS [facility] Protocol Lidocaine 1 each 06/29/18 13:00 07/01/18 10:40 Lidoderm 5% TD 1 each QDAY DIANE Administration Midodrine 10 mg 07/01/18 14:00 07/01/18 21:00 Proamatine PO 10 mg TID DIANE Administration Peritoneal Dialysis Solution 2,000 ml 07/01/18 10:00 07/01/18 22:14 Dianeal Low Calcium W/1.5% Dextrose IP 2,000 ml QID DIANE Administration Polyethylene Glycol 17 gm 07/02/18 10:00 Miralax 3350 PO QDAY DIANE Sevelamer Carbonate 1,600 mg 06/29/18 12:00 07/01/18 18:04 Renvela PO Not Given TIDWM [facility]
[2018-07-02] MEDS ORDERED: LEXISCAN IV ONE ×2 (09:07→09:23)
--- NOTE | 2018-07-02 13:23 | Progress Note ---
Assessment and Plan Patient resting on room air.O2 saturation 98% on room air. No complaint of chest pain, shortness of breath or cough.Having excessive day time sleepiness. Recommend sleep study as out patient. - Patient Problems (1) NSTEMI (non-ST elevated myocardial infarction) Current Visit: Yes Status: Acute Plan to address problem: Management as per cardiology. (2) HTN (hypertension) Current Visit: Yes Status: Acute Plan to address problem: Management as per primary care. (3) Diabetes Current Visit: Yes Status: Chronic Plan to address problem: Mangement as per primary care. (4) ESRD on peritoneal dialysis Current Visit: Yes Status: Chronic Plan to address problem: Management as per Nephrology. (5) Elevated d-dimer Current Visit: Yes Status: Acute Plan to address problem: Perfusion lung scan reported low probability for pulmonary emboli. (6) Obesity (BMI 30.0-34.9) Current Visit: Yes Status: Acute Plan to address problem: Diet and exercise to loose weight. Sleep study as out patient. Subjective Date of service: 07/02/18 Principal diagnosis: abnl trop Interval history: Patient resting on room air.O2 saturation 98% on room air. No complaint of chest pain, shortness of breath or cough.Patient Obese. Having excessive day time sleepiness. Recommend sleep study as out patient. Objective Vital Signs - 12hr 07/02/18 07/02/18 07/02/18 04:51 07:46 09:12 Temperature 99.1 F 98.1 F Pulse Rate 104 H Respiratory 20 18 Rate Blood Pressure 88/42 112/71 109/60 O2 Sat by Pulse 100 Oximetry 07/02/18 07/02/18 07/02/18 09:17 09:26 09:27 Temperature Pulse Rate Respiratory Rate Blood Pressure 109/55 93/55 101/56 O2 Sat by Pulse Oximetry 07/02/18 07/02/18 07/02/18 09:28 09:29 09:30 Temperature Pulse Rate Respiratory Rate Blood Pressure 101/56 111/58 106/54 O2 Sat by Pulse Oximetry Constitutional: no acute distress, alert, other (elderly looking obese AAF, normocephalic and atraumatic with mildly increased resp effort at rest) Eyes: non-icteric ENT: oropharynx moist, other (mallampati 3) Neck: supple, no lymphadenopathy, no JVD, other (large neck circumference) Effort: mildly labored Ascultation: Bilateral: diminished breath sounds Percussion: Bilateral: not dull Cardiovascular: regular rate and rhythm, other (No R/M) Gastrointestinal: normoactive bowel sounds, soft, non-tender, non-distended, other (No HSM) Integumentary: normal Extremities: no cyanosis, no edema, pulses normal, no ischemia or petechiae Neurologic: normal mental status, non-focal exam (grossly), pupils equal and round, motor strength normal and Psychiatric: mood appropriate, affect normal CBC and BMP: 07/02/18 05:22 07/02/18 05:22 ABG, PT/INR, D-dimer: PT/INR, D-dimer D-Dimer > 60505 ng/mlDDU (0-234) H 06/28/18 22:26 Abnormal lab findings: Abnormal Labs 06/28/18 06/28/18 06/28/18 10:38 20:54 20:54 WBC 24.8 H RBC Hgb 16.6 H Hct 50.3 H MCV 107 H MCH 35 H RDW 15.6 H Plt Count Seg Neuts % (Manual) 95.0 H Lymphocytes % (Manual) 3.0 L Seg Neutrophils # Man 23.6 H Lymphocytes # (Manual) 0.7 L D-Dimer Sodium 131 L Potassium Chloride 89.6 L Carbon Dioxide 19 L BUN 29 H Creatinine 9.3 H Glucose 174 H POC Glucose Lactic Acid Calcium ALT 5 L Troponin T 0.073 H C-Reactive Protein Albumin 3.2 L Triglycerides 194 H HDL Cholesterol 68 H 06/28/18 06/29/18 06/29/18 22:26 12:18 13:30 WBC RBC Hgb Hct MCV MCH RDW Plt Count Seg Neuts % (Manual) Lymphocytes % (Manual) Seg Neutrophils # Man Lymphocytes # (Manual) D-Dimer > 11446 H Sodium Potassium Chloride Carbon Dioxide BUN Creatinine Glucose POC Glucose 168 H Lactic Acid Calcium ALT Troponin T 0.073 H C-Reactive Protein Albumin Triglycerides HDL Cholesterol 06/29/18 06/29/18 06/29/18 13:30 14:11 16:36 WBC 19.8 H RBC Hgb 14.7 H Hct 45.4 H MCV 108 H MCH 35 H RDW 15.9 H Plt Count Seg Neuts % (Manual) Lymphocytes % (Manual) Seg Neutrophils # Man Lymphocytes # (Manual) D-Dimer Sodium 133 L Potassium Chloride 91.7 L Carbon Dioxide 20 L BUN 33 H Creatinine 9.9 H Glucose 196 H POC Glucose 165 H Lactic Acid Calcium ALT Troponin T C-Reactive Protein Albumin Triglycerides HDL Cholesterol 06/29/18 06/29/18 06/30/18 20:37 22:01 04:49 WBC 14.8 H RBC Hgb Hct MCV 106 H MCH 35 H RDW 15.5 H Plt Count Seg Neuts % (Manual) 90.0 H Lymphocytes % (Manual) 5.0 L Seg Neutrophils # Man 13.3 H Lymphocytes # (Manual) 0.7 L D-Dimer Sodium Potassium Chloride Carbon Dioxide BUN Creatinine Glucose POC Glucose 202 H Lactic Acid Calcium ALT Troponin T 0.077 H C-Reactive Protein Albumin Triglycerides HDL Cholesterol 06/30/18 06/30/18 06/30/18 04:49 08:27 12:17 WBC RBC Hgb Hct MCV MCH RDW Plt Count Seg Neuts % (Manual) Lymphocytes % (Manual) Seg Neutrophils # Man Lymphocytes # (Manual) D-Dimer Sodium 134 L Potassium 3.5 L Chloride 94.7 L Carbon Dioxide BUN 30 H Creatinine 8.8 H Glucose 182 H POC Glucose 170 H 145 H Lactic Acid Calcium 7.9 L ALT Troponin T C-Reactive Protein Albumin Triglycerides HDL Cholesterol 06/30/18 06/30/18 07/01/18 16:44 22:06 07:21 WBC 11.8 H RBC 3.32 L Hgb Hct MCV 105 H MCH 35 H RDW 15.5 H Plt Count 125 L Seg Neuts % (Manual) Lymphocytes % (Manual) Seg Neutrophils # Man Lymphocytes # (Manual) D-Dimer Sodium Potassium Chloride Carbon Dioxide BUN Creatinine Glucose POC Glucose 155 H 174 H Lactic Acid Calcium ALT Troponin T C-Reactive Protein Albumin Triglycerides HDL Cholesterol 07/01/18 07/01/18 07/01/18 07:21 08:22 11:38 WBC RBC Hgb Hct MCV MCH RDW Plt Count Seg Neuts % (Manual) Lymphocytes % (Manual) Seg Neutrophils # Man Lymphocytes # (Manual) D-Dimer Sodium 134 L Potassium Chloride 95.9 L Carbon Dioxide BUN 31 H Creatinine 8.4 H Glucose 151 H POC Glucose 117 H 166 H Lactic Acid Calcium 7.8 L ALT Troponin T C-Reactive Protein Albumin Triglycerides HDL Cholesterol 07/01/18 07/01/18 07/01/18 13:32 13:32 16:27 WBC RBC Hgb Hct MCV MCH RDW Plt Count Seg Neuts % (Manual) Lymphocytes % (Manual) Seg Neutrophils # Man Lymphocytes # (Manual) D-Dimer Sodium Potassium Chloride Carbon Dioxide BUN Creatinine Glucose POC Glucose 149 H Lactic Acid 2.20 H* Calcium ALT Troponin T C-Reactive Protein 7.40 H Albumin Triglycerides HDL Cholesterol 07/01/18 07/01/18 07/02/18 19:35 21:36 05:22 WBC RBC Hgb Hct MCV MCH RDW Plt Count Seg Neuts % (Manual) Lymphocytes % (Manual) Seg Neutrophils # Man Lymphocytes # (Manual) D-Dimer Sodium Potassium Chloride Carbon Dioxide BUN Creatinine Glucose POC Glucose 129 H Lactic Acid 2.60 H* 2.20 H* Calcium ALT Troponin T C-Reactive Protein Albumin Triglycerides HDL Cholesterol 07/02/18 07/02/18 07/02/18 05:22 05:22 07:11 WBC 12.6 H RBC 3.51 L Hgb Hct MCV 105 H MCH 35 H RDW Plt Count 132 L Seg Neuts % (Manual) 92.0 H Lymphocytes % (Manual) 2.0 L Seg Neutrophils # Man 11.6 H Lymphocytes # (Manual) 0.3 L D-Dimer Sodium 131 L Potassium 3.3 L Chloride 93.1 L Carbon Dioxide BUN 31 H Creatinine 7.5 H Glucose 228 H POC Glucose 215 H Lactic Acid Calcium 7.7 L ALT Troponin T C-Reactive Protein Albumin Triglycerides HDL Cholesterol Chest x-ray: report reviewed (See the next page for report.), image reviewed Additional Studies: Chest xray PA and Lateral done 06/29/18 IMPRESSION: No central line is identified. Clinical correlation is requested. No pneumothorax. Infiltrated intravenous contrast within the soft tissues of the left neck and arm. Perfusion Lung scan done on 06/29/18 reported: Low Probability for pulmonary emboli. Allied health notes reviewed: nursing
--- NOTE | 2018-07-02 14:01 | Progress Note ---
Assessment and Plan S/p lexiscan MPI stress test this AM which was negative. Currently stable cardiac status. Nothing further to add from cardiac perspective at this time. Will sign off. Recommend follow up in our office with Dr. Guerrero within 1-2 weeks of hospital discharge ([phone]). The patient has been seen in conjunction with Dr. Nancie Jacob who agrees with the assessment and plan of care. - Patient Problems (1) Sepsis Current Visit: Yes Status: Suspected (2) Sepsis associated hypotension Current Visit: Yes Status: Suspected (3) NSTEMI (non-ST elevated myocardial infarction) Current Visit: Yes Status: Acute (4) ESRD on peritoneal dialysis Current Visit: Yes Status: Chronic (5) Hyperlipidemia Current Visit: Yes Status: Chronic (6) Diabetes Current Visit: Yes Status: Chronic Subjective Date of service: 07/02/18 Principal diagnosis: abnl trop Interval history: pt for stress test. no current cardiac complaints. Objective Last Vital Signs Temp 98.1 F 07/02/18 07:46 Pulse 94 H 07/02/18 10:00 Resp 18 07/02/18 07:46 BP 106/54 07/02/18 09:30 Pulse Ox 100 07/02/18 04:51 - Physical Examination General: No Apparent Distress HEENT: Positive: PERRL, Mucus Membranes Moist Neck: Positive: neck supple, trachea midline Cardiac: Positive: Reg Rate and Rhythm, S1/S2 Lungs: Positive: Decreased Breath Sounds Neuro: Positive: Grossly Intact Abdomen: Positive: Soft, Active Bowel Sounds. Negative: Tender, Distended Skin: Positive: Clear Incision: Cardiac Cath Site (left groin no hemtoma ) Musculoskeletal: No Pain, Normal Range of Motion Extremities: Present: normal. Absent: edema - Labs and Meds CBC 07/02/18 Range/Units 05:22 WBC 12.6 H (4.5-11.0) K/mm3 RBC 3.51 L (3.65-5.03) M/mm3 Hgb 12.2 (10.1-14.3) gm/dl Hct 36.9 (30.3-42.9) % Plt Count 132 L (140-440) K/mm3 Comprehensive Metabolic Panel 07/02/18 Range/Units 05:22 Sodium 131 L (137-145) mmol/L Potassium 3.3 L (3.6-5.0) mmol/L Chloride 93.1 L (98-107) mmol/L Carbon Dioxide 22 (22-30) mmol/L BUN 31 H (7-17) mg/dL Creatinine 7.5 H (0.7-1.2) mg/dL Glucose 228 H (65-100) mg/dL Calcium 7.7 L (8.4-10.2) mg/dL - Imaging and Cardiology Echo: report reviewed (EF 55-60%, trace TR, RVSP 32mmHg. ) - Telemetry EKG Rhythm: Sinus Rhythm - Allied health notes Allied health notes reviewed: nursing
--- NOTE | 2018-07-02 14:05 | Ultrasound Report ---
ULTRASOUND RENAL BILATERAL HISTORY: Erythrocytosis, end-stage renal disease, evaluate for mass. TECHNIQUE: transabdominal ultrasound with color Doppler interrogation. FINDINGS: The right kidney measures 7.3 x 3.9 x 3.0cm. Right renal cortex: Zero pointcm. The left kidney measures 6.3 x 3.9 x 3.4cm. Left renal cortex: 0.7cm. Both kidneys are atrophic and slightly echogenic consistent with chronic renal parenchymal disease. There are 2 cysts in the right kidney measuring 3.3 cm and 2.7 cm. There are 4 cysts in the left kidney ranging from 1.4 cm to the 4.1 cm in diameter. No obvious renal mass, nephrolithiasis or hydronephrosis. The bladder is empty. Small pelvic ascites is noted. IMPRESSION: Chronic renal parenchymal disease. Bilateral simple renal cysts. No obvious renal mass. Pelvic ascites.
[2018-07-02] MEDS: BABY ASPIRIN PO SCH (14:49)
[2018-07-02] MEDS: HEPARIN SUB-Q SCH ×2 (14:49→22:05)
[2018-07-02] MEDS: COLACE PO SCH ×2 (14:49→22:05)
[2018-07-02] MEDS: ROCALTROL PO SCH (14:49)
[2018-07-02] MEDS: PEPCID PO SCH (14:49)
[2018-07-02] MEDS: MIRALAX 3350 PO SCH (14:50)
[2018-07-02] MEDS: DIANEAL LOW CALCIUM W/1.5% DEXTROSE IP SCH ×3 (14:50→22:50)
[2018-07-02] MEDS: LIDODERM 5% TD SCH (15:19)
[2018-07-02] MEDS: ROCEPHIN/NS 2 GM/100 ML 2 GM/100 ML BAG IV SCH (15:19)
--- NOTE | 2018-07-02 18:49 | Progress Note ---
Assessment and Plan Assessment and plan: Patient is a 67-year-old female past medical history of end-stage renal disease on peritoneal dialysis, hypertension hyperlipidemia, diabetes mellitus type 2 on diet control, s/p right hip and left knee replacement presented to ER by EMS after having a fall around 9 AM in the morning but she had no loss of consciousness or hit her head. she was sitting on bed and accidentaly "slid to ground". She was unable to get up from the bed as she was feeling very weak in her legs. Her family called emergency services to break into her house around 5pm. She was then brought to the ER for further evaluation and management . She noted to have highly elevated d-dimer, elevated white count. In the ED, patient was hypotensive w/ WBC 24.8. CTA chest was unremarkable. V/Q scan was also low prob PE. She denies fever, chills, PD fluid has been clear. She was placed on Levophed, given IV Rocephin and then called for admission for further evaluation and management. Cx negative to date, weaned off levophed, s/p PD by renal. /SIRS without organ dysfunction - suspected sepsis on admission - Continue empiric antibiotics, follow blood culture report - No infiltrates noted on CTA chest/chest x-ray/VQ scan, patient does not make urine /Hypotension vs septic shock - Patient was placed on levophed, now weaned off - ordered steroid x1 dose, cont midodrine for now /HLD, on statin /ESRD on PD, Nephrology following /Diabetes type 2, diet controlled, SSI PLACED as needed ACHS /Elevated troponin/NSTEMI type 2 - Ordered serial troponin, CPK level - Cardiology following - Stress test done today negative Debility PT to evaluate History Interval history: Generalized weakness Hospitalist Physical - Physical exam Narrative exam: EN: Not in acute distress, lying in bed, obbese HEENT: Normocephalic, atraumatic, Neck: supple, No JVD heart: S1 and S2 reg, no murmurs, rubs or gallop Lungs: clear to auscultation bilateral, wheeze Abd:soft, non tender, non distended, PD catheter. normal bowel sounds Ext: No edema,no clubbing, no cyanosis, Neuro:Awake,alert,oriented X 3, no focal signs, moves all ext Psych: normal mood - Constitutional Vitals: Temp Pulse Resp BP Pulse Ox 98.1 F 78 18 124/78 98 07/02/18 07:46 07/02/18 15:55 07/02/18 10:00 07/02/18 15:55 07/02/18 10:00 General appearance: Present: no acute distress, well-nourished Results - Labs CBC & Chem 7: 07/02/18 05:22 07/02/18 05:22 Labs: Laboratory Last Values WBC 12.6 K/mm3 (4.5-11.0) H 07/02/18 05:22 RBC 3.51 M/mm3 (3.65-5.03) L 07/02/18 05:22 Hgb 12.2 gm/dl (10.1-14.3) 07/02/18 05:22 Hct 36.9 % (30.3-42.9) 07/02/18 05:22 MCV 105 fl (79-97) H 07/02/18 05:22 MCH 35 pg (28-32) H 07/02/18 05:22 MCHC 33 % (30-34) 07/02/18 05:22 RDW 15.1 % (13.2-15.2) 07/02/18 05:22 Plt Count 132 K/mm3 (140-440) L 07/02/18 05:22 Add Manual Diff Complete 07/02/18 05:22 Total Counted 100 07/02/18 05:22 Seg Neutrophils % V[employer] Manufacturer 07/02/18 05:22 Seg Neuts % (Manual) 92.0 % (40.0-70.0) H 07/02/18 05:22 Band Neutrophils % 4.0 % 07/02/18 05:22 Lymphocytes % (Manual) 2.0 % (13.4-35.0) L 07/02/18 05:22 Reactive Lymphs % (Man) 0 % 07/02/18 05:22 Monocytes % (Manual) 2.0 % (0.0-7.3) 07/02/18 05:22 Eosinophils % (Manual) 0 % (0.0-4.3) 07/02/18 05:22 Basophils % (Manual) 0 % (0.0-1.8) 07/02/18 05:22 Metamyelocytes % 0 % 07/02/18 05:22 Myelocytes % 0 % 07/02/18 05:22 Promyelocytes % 0 % 07/02/18 05:22 Blast Cells % 0 % 07/02/18 05:22 Nucleated RBC % Not Reportable 07/02/18 05:22 Seg Neutrophils # Man 11.6 K/mm3 (1.8-7.7) H 07/02/18 05:22 Band Neutrophils # 0.5 K/mm3 07/02/18 05:22 Lymphocytes # (Manual) 0.3 K/mm3 (1.2-5.4) L 07/02/18 05:22 Abs React Lymphs (Man) 0.0 K/mm3 07/02/18 05:22 Monocytes # (Manual) 0.3 K/mm3 (0.0-0.8) 07/02/18 05:22 Eosinophils # (Manual) 0.0 K/mm3 (0.0-0.4) 07/02/18 05:22 Basophils # (Manual) 0.0 K/mm3 (0.0-0.1) 07/02/18 05:22 Metamyelocytes # 0.0 K/mm3 07/02/18 05:22 Myelocytes # 0.0 K/mm3 07/02/18 05:22 Promyelocytes # 0.0 K/mm3 07/02/18 05:22 Blast Cells # 0.0 K/mm3 07/02/18 05:22 WBC Morphology Not Reportable 07/02/18 05:22 Hypersegmented Neuts Not Reportable 07/02/18 05:22 Hyposegmented Neuts Not Reportable 07/02/18 05:22 Hypogranular Neuts Not Reportable 07/02/18 05:22 Smudge Cells Not Reportable 07/02/18 05:22 Toxic Granulation Not Reportable 07/02/18 05:22 Toxic Vacuolation Not Reportable 07/02/18 05:22 Dohle Bodies Not Reportable 07/02/18 05:22 Pelger-Huet Anomaly Not Reportable 07/02/18 05:22 Nomi Rods Not Reportable 07/02/18 05:22 Platelet Estimate Consistent w auto 07/02/18 05:22 Clumped Platelets Not Reportable 07/02/18 05:22 Plt Clumps, EDTA Not Reportable 07/02/18 05:22 Large Platelets Not Reportable 07/02/18 05:22 Giant Platelets Not Reportable 07/02/18 05:22 Platelet Satelliting Not Reportable 07/02/18 05:22 Plt Morphology Comment Not Reportable 07/02/18 05:22 RBC Morphology Not Reportable 07/02/18 05:22 Dimorphic RBCs Not Reportable 07/02/18 05:22 Polychromasia Not Reportable 07/02/18 05:22 Hypochromasia Not Reportable 07/02/18 05:22 Poikilocytosis Not Reportable 07/02/18 05:22 Anisocytosis Not Reportable 07/02/18 05:22 Microcytosis Not Reportable 07/02/18 05:22 Macrocytosis Not Reportable 07/02/18 05:22 Spherocytes Not Reportable 07/02/18 05:22 Pappenheimer Bodies Not Reportable 07/02/18 05:22 Sickle Cells Not Reportable 07/02/18 05:22 Target Cells Not Reportable 07/02/18 05:22 Tear Drop Cells Not Reportable 07/02/18 05:22 Ovalocytes Not Reportable 07/02/18 05:22 Helmet Cells Not Reportable 07/02/18 05:22 [place] Bodies Not Reportable 07/02/18 05:22 [place] Rings Not Reportable 07/02/18 05:22 [place] Cells Not Reportable 07/02/18 05:22 Bite Cells Not Reportable 07/02/18 05:22 Crenated Cell Not Reportable 07/02/18 05:22 Elliptocytes Not Reportable 07/02/18 05:22 Acanthocytes (Spur) Not Reportable 07/02/18 05:22 Rouleaux Not Reportable 07/02/18 05:22 Hemoglobin C Crystals Not Reportable 07/02/18 05:22 Schistocytes Not Reportable 07/02/18 05:22 Malaria parasites Not Reportable 07/02/18 05:22 [place] Bodies Not Reportable 07/02/18 05:22 Hem Pathologist Commnt No 07/02/18 05:22 D-Dimer > 16088 ng/mlDDU (0-234) H 06/28/18 22:26 Sodium 131 mmol/L (137-145) L 07/02/18 05:22 Potassium 3.3 mmol/L (3.6-5.0) L 07/02/18 05:22 Chloride 93.1 mmol/L (98-107) L 07/02/18 05:22 Carbon Dioxide 22 mmol/L (22-30) 07/02/18 05:22 Anion Gap 19 mmol/L 07/02/18 05:22 BUN 31 mg/dL (7-17) H 07/02/18 05:22 Creatinine 7.5 mg/dL (0.7-1.2) H 07/02/18 05:22 Estimated GFR 7 ml/min 07/02/18 05:22 BUN/Creatinine Ratio 4 % 07/02/18 05:22 Glucose 228 mg/dL (65-100) H 07/02/18 05:22 POC Glucose 123 (70-105) H 07/02/18 15:35 Lactic Acid 2.20 mmol/L (0.7-2.0) H* 07/02/18 05:22 Calcium 7.7 mg/dL (8.4-10.2) L 07/02/18 05:22 Total Bilirubin 0.40 mg/dL (0.1-1.2) 06/28/18 20:54 AST 25 units/L (5-40) 06/28/18 20:54 ALT 5 units/L (7-56) L 06/28/18 20:54 Alkaline Phosphatase 88 units/L (35-129) 06/28/18 20:54 Total Creatine Kinase 118 units/L (30-135) 06/29/18 20:37 Troponin T 0.077 ng/mL (0.00-0.029) H 06/29/18 20:37 C-Reactive Protein 7.40 mg/dL (0.00-1.30) H 07/01/18 13:32 Total Protein 7.4 g/dL (6.3-8.2) 06/28/18 20:54 Albumin 3.2 g/dL (3.9-5) L 06/28/18 20:54 Albumin/Globulin Ratio 0.8 % 06/28/18 20:54 Triglycerides 194 mg/dL (2-149) H 06/28/18 10:38 Cholesterol 167 mg/dL (50-199) 06/28/18 10:38 LDL Cholesterol Direct 61 mg/dL (50-130) 06/28/18 10:38 HDL Cholesterol 68 mg/dL (40-59) H 06/28/18 10:38 Cholesterol/HDL Ratio 2.45 % 06/28/18 10:38 Active Medications - Current Medications Current Medications: Generic Name Dose Route Start Last Admin Trade Name Bhupendra PRN Reason Stop Dose Admin Aspirin 81 mg 06/29/18 13:00 07/02/18 14:49 Baby Aspirin PO 81 mg QDAY DIANE Administration Atorvastatin Calcium 40 mg 06/29/18 22:00 07/01/18 22:02 Lipitor PO 40 mg QHS DIANE Administration Calcitriol 0.5 mcg 06/29/18 13:00 07/02/18 14:49 Rocaltrol PO 0.5 mcg QDAY DIANE Administration Docusate Sodium 100 mg 07/02/18 10:00 07/02/18 14:49 Colace PO 100 mg BID DIANE Administration Famotidine 10 mg 06/30/18 10:00 07/02/18 14:49 Pepcid PO 10 mg QDAY DIANE Administration Heparin Sodium (Porcine) 5,000 unit 06/29/18 13:00 07/02/18 14:49 Heparin SUB-Q 5,000 unit Q12HR DIANE Administration Ceftriaxone Sodium 2 gm in 100 mls @ 200 mls/hr 06/30/18 10:00 07/02/18 15:19 Rocephin/Ns 2 Gm/100 Ml IV 07/04/18 10:29 200 mls/hr Q24HR DIANE Administration Protocol Insulin Human Lispro 0 unit 06/29/18 22:00 07/02/18 16:01 Humalog SUB-Q Not Given ACHS [facility] Protocol Lidocaine 1 each 06/29/18 13:00 07/02/18 15:19 Lidoderm 5% TD 1 each QDAY DIANE Administration Midodrine 10 mg 07/01/18 14:00 07/02/18 14:49 Proamatine PO 10 mg TID DIANE Administration Peritoneal Dialysis Solution 2,000 ml 07/01/18 10:00 07/02/18 14:51 Dianeal Low Calcium W/1.5% Dextrose IP 2,000 ml QID DIANE Administration Polyethylene Glycol 17 gm 07/02/18 10:00 07/02/18 14:50 Miralax 3350 PO Not Given QDAY DIANE Sevelamer Carbonate 1,600 mg 06/29/18 12:00 03/26/19 17:01 Renvela PO 1,600 mg TIDWM DIANE Administration
--- NOTE | 2018-07-02 19:17 | Cat Scan Report ---
PROCEDURE: CT ABDOMEN PELVIS W CON TECHNIQUE: Following oral administration of GI contrast and administration of IV contrast axial schuyler edis imaging was performed through the abdomen and pelvis with sagittal and coronal reformatted images obtained. Delayed axial helical imaging was also performed through the abdomen and pelvis. HISTORY: Sepsis; ? Peritonitis / other intrabdominal source COMPARISONS: X-ray lumbar spine dated June 28, 2018 FINDINGS: Visualization of detail on some of the images is significantly limited by motion artifact. The lung bases are notable for small bilateral pleural fluid collections. The heart appears to be enlarged with a small pericardial fluid collection. The liver, spleen, pancreas and adrenal glands are unremarkable. There appear to be gallstones in the mildly distended gallbladder. The kidneys are atrophic with bilateral renal cysts. There is a percutaneous peritoneal dialysis catheter with the tip in the left anterior pelvis with a moderate amount of free fluid, probable dialysis, in the abdomen and pelvis. There are small collections of pneumoperitoneum likely secondary to peritoneal dialysis. The bowel is normal caliber. There are colonic diverticula without definite radiographic evidence of diverticulitis. The appendix is normal caliber. The abdominal aorta is normal caliber. There is no evidence of intra-abdominal adenopathy. The urinary bladder is decompressed. The uterus is absent. The bony structures are notable for compression fracture of the L4 vertebral body with loss of height of less than 50%. This is of indeterminate age. There is a small umbilical hernia that contains air, fluid and fat. IMPRESSION: 1. Percutaneous dialysis catheter with air and fluid in the abdomen and pelvis is most likely seconda ry to the percutaneous dialysis. However, and intra-abdominal infectious process cannot entirely be excluded. 2. Atrophic kidneys with bilateral renal cysts. 3. Colonic diverticula. 4. Status post hysterectomy. 5. Compression fracture L4 vertebral body of indeterminate age. 6. Small umbilical hernia that contains fat, fluid and air. 7. Gallstones within the gallbladder. 8. Cardiomegaly with small pericardial fluid collection. 9. Small bilateral pleural fluid collections. This document is electronically signed by Caterina Gutierrez MD., July 02 2018 07:15:24 PM ET
--- NOTE | 2018-07-02 21:00 | Treadmill Report ---
PROCEDURE: Nuclear stress test. REFERRING PHYSICIAN: Hospitalist service PROTOCOL: The patient was brought to the stress lab in a postabsorptive state, given 10 mCi of technetium 99m at rest. The patient underwent rest imaging. The patient underwent Lexiscan stress test per standard protocol. At peak stress, the patient was given 26 mCi of technetium 99m. Shortly thereafter, the patient underwent stress imaging. Raw imaging reveals mild GI artifact, no significant motion artifact. SPECT images examined carefully in horizontal long axis, vertical long and short axis views. There is normal homogenous uptake of radioisotope in all reported segments. No evidence of significant fixed or reversible perfusion defect suggestive of prior infarction or active ischemia. Gated wall motion reveals normal systolic thickening, calculated ejection fraction 61%, no TID. CONCLUSIONS: 1. Normal myocardial perfusion scan without evidence of active ischemia or prior infarction. 2. Normal left ventricular systolic performance without evidence of transient ischemic dilatation or stress-induced segmental wall motion abnormalities. JOB# [id number] SBAdore/EMELIA
[2018-07-03] MEDS: HumaLOG SUB-Q SCH ×4 (08:07→22:57)
[2018-07-03] MEDS: PROAMATINE PO SCH ×3 (08:38→21:39)
[2018-07-03] MEDS: RENVELA PO SCH ×3 (08:38→17:47)
--- NOTE | 2018-07-03 09:09 | Progress Note ---
Assessment and Plan Impression: * End stage renal disease on PD * Leukocytosis --Blood cx: NGTD * Elevated troponin - r/o NSTEMI * Hypotension --TTE: LVEF 55-60% --Strest shannon: nml perfusion, nml LV function * Hypokalemia - resolved * Secondary hyperparathyroidism * Erythrocytosis, resolved - ?secondary to hemoconcentration vs other Plan: * Continue Midodrine to 10mg TID (was taking 10mg BID prior to admission) * Continue PD exchanges - 1.5% dextrose * Have ordered PD effluent cell count and cx which have not yet been collected, discussed with RN - doubt peritonitis as patient is asx and PD fluid has been clear * Cardiology work up/findings noted * Empiric abx per primary team * Renal diet * Dose medications for renal function * Continue binders and calcitriol Subjective Date of service: 07/03/18 Principal diagnosis: abnl trop Objective - Vital Signs Vital signs: Vital Signs - 12hr 07/02/18 07/02/18 07/03/18 21:28 22:00 00:03 Temperature 98.6 F Pulse Rate 74 87 Pulse Rate [ 92 H From Monitor] Respiratory 18 20 Rate Blood Pressure 97/51 Blood Pressure [Left] O2 Sat by Pulse 97 97 100 Oximetry 07/03/18 07/03/18 04:23 04:30 Temperature 97.0 F L 97.7 F Pulse Rate 64 94 H Pulse Rate [ From Monitor] Respiratory 18 18 Rate Blood Pressure 99/53 Blood Pressure 113/60 [Left] O2 Sat by Pulse 99 96 Oximetry - Lab 07/02/18 05:22 07/02/18 05:22 Most recent lab results Calcium 7.7 mg/dL (8.4-10.2) L 07/02/18 05:22 Medications & Allergies - Medications Allergies/Adverse Reactions: Allergies No Known Allergies Allergy (Verified 08/18/14 08:52) Home Medications: Home Medications Medication Instructions Recorded Confirmed Last Taken Type Aspirin [Aspirin BABY CHEW TAB] 81 mg PO QDAY #30 08/19/14 06/29/18 06/23/15 Rx Calcitriol [Rocaltrol] 0.5 mcg PO QDAY 06/29/18 06/29/18 Unknown History Potassium Chloride [Klor-Con M20] 20 meq PO DAILY 06/29/18 06/29/18 Unknown History Sevelamer Carbonate 1,600 mg PO TID 06/29/18 06/29/18 Unknown History Simvastatin [Zocor] 20 mg PO DAILY 06/29/18 06/29/18 Unknown History Active Medications: Generic Name Dose Route Start Last Admin Trade Name Bhupendra PRN Reason Stop Dose Admin Aspirin 81 mg 06/29/18 13:00 07/02/18 14:49 Baby Aspirin PO 81 mg QDAY DIANE Administration Atorvastatin Calcium 40 mg 06/29/18 22:00 07/02/18 22:05 Lipitor PO 40 mg QHS DIANE Administration Calcitriol 0.5 mcg 06/29/18 13:00 07/02/18 14:49 Rocaltrol PO 0.5 mcg QDAY DIANE Administration Docusate Sodium 100 mg 07/02/18 10:00 07/02/18 22:05 Colace PO 100 mg BID DIANE Administration Famotidine 10 mg 06/30/18 10:00 07/02/18 14:49 Pepcid PO 10 mg QDAY DIANE Administration Heparin Sodium (Porcine) 5,000 unit 06/29/18 13:00 07/02/18 22:05 Heparin SUB-Q 5,000 unit Q12HR DIANE Administration Ceftriaxone Sodium 2 gm in 100 mls @ 200 mls/hr 06/30/18 10:00 07/02/18 15:19 Rocephin/Ns 2 Gm/100 Ml IV 07/04/18 10:29 200 mls/hr Q24HR DIANE Administration Protocol Insulin Human Lispro 0 unit 06/29/18 22:00 07/03/18 08:07 Humalog SUB-Q Not Given ACHS [facility] Protocol Lidocaine 1 each 06/29/18 13:00 07/02/18 15:19 Lidoderm 5% TD 1 each QDAY DIANE Administration Midodrine 10 mg 07/01/18 14:00 07/03/18 08:38 Proamatine PO 10 mg TID DIANE Administration Peritoneal Dialysis Solution 2,000 ml 07/01/18 10:00 07/02/18 22:50 Dianeal Low Calcium W/1.5% Dextrose IP 2,000 ml QID DIANE Administration Polyethylene Glycol 17 gm 07/02/18 10:00 07/02/18 14:50 Miralax 3350 PO Not Given QDAY DIANE Sevelamer Carbonate 1,600 mg 06/29/18 12:00 07/03/18 08:38 Renvela PO 1,600 mg TIDWM DIANE Administration
[2018-07-03] MEDS: PEPCID PO SCH (10:12)
[2018-07-03] MEDS: ROCALTROL PO SCH (10:12)
[2018-07-03] MEDS: COLACE PO SCH ×2 (10:12→21:39)
[2018-07-03] MEDS: BABY ASPIRIN PO SCH (10:12)
[2018-07-03] MEDS: HEPARIN SUB-Q SCH (10:13)
[2018-07-03] MEDS: ROCEPHIN/NS 2 GM/100 ML 2 GM/100 ML BAG IV SCH (10:13)
[2018-07-03] MEDS: MIRALAX 3350 PO SCH (10:14)
--- NOTE | 2018-07-03 10:36 | Vascular Lab Report ---
PROCEDURE: VL VENOUS DUPLEX LE BILAT TECHNIQUE: Grayscale, color flow and spectral waveform images were obtained of bilateral lower extre mities. HISTORY: Elevated D dimer. COMPARISON: None FINDINGS: Left: There is occlusive DVT in the left lower extremity involving the mid to distal superficial femo ral vein, popliteal vein, to of 2 posterior tibial veins, and peroneal vein. There is also superficia l venous thrombus seen in the soleal vein at the upper calf. Right: There is no deep venous thrombosis seen in the right lower extremity. Flow in right deep veins demonstrated by color flow and spectral waveform imaging. There is appropriate wall compression and augmentation. IMPRESSION: Extensive DVT on the left from mid superficial femoral vein to the calf. There is also superficial ve nous thrombus in the calf. No DVT seen on the right. This document is electronically signed by Georgia Pollock MD., July 03 2018 10:33:45 AM ET
[2018-07-03] MEDS: LIDODERM 5% TD SCH (11:02)
--- NOTE | 2018-07-03 11:02 | Progress Note ---
Assessment and Plan Assessment and plan: Patient is a 67-year-old female past medical history of end-stage renal disease on peritoneal dialysis, hypertension hyperlipidemia, diabetes mellitus type 2 on diet control, s/p right hip and left knee replacement presented to ER by EMS after having a fall around 9 AM in the morning but she had no loss of consciousness or hit her head. she was sitting on bed and accidentaly "slid to ground". She was unable to get up from the bed as she was feeling very weak in her legs. Her family called emergency services to break into her house around 5pm. She was then brought to the ER for further evaluation and management . She noted to have highly elevated d-dimer, elevated white count. In the ED, patient was hypotensive w/ WBC 24.8. CTA chest was unremarkable. V/Q scan was also low prob PE. She denies fever, chills, PD fluid has been clear. She was placed on Levophed, given IV Rocephin and then called for admission for further evaluation and management. Cx negative to date, weaned off levophed, s/p PD by renal. /SIRS without organ dysfunction - suspected sepsis on admission - Continue empiric antibiotics, follow blood culture report - No infiltrates noted on CTA chest/chest x-ray/VQ scan, patient does not make urine /Hypotension vs septic shock - Patient was placed on levophed, now weaned off - ordered steroid x1 dose, cont midodrine for now /HLD, on statin /ESRD on PD, Nephrology following /Diabetes type 2, diet controlled, SSI PLACED as needed ACHS /Elevated troponin/NSTEMI type 2 - Ordered serial troponin, CPK level - Cardiology following - Stress test negative DVT left lower ext. Start Heparin drip consult Hematology Hold ambulation by PT Debility PT evaluation History Interval history: Generalized weakness called by Nurse about Doppler report DVT left lower extremity Hospitalist Physical - Physical exam Narrative exam: EN: Not in acute distress, lying in bed, obbese HEENT: Normocephalic, atraumatic, Neck: supple, No JVD heart: S1 and S2 reg, no murmurs, rubs or gallop Lungs: clear to auscultation bilateral, wheeze Abd:soft, non tender, non distended, PD catheter. normal bowel sounds Ext: No edema,no clubbing, no cyanosis, Neuro:Awake,alert,oriented X 3, no focal signs, moves all ext Psych: normal mood - Constitutional Vitals: Temp Pulse Resp BP Pulse Ox 97.7 F 90 16 116/60 97 07/03/18 04:30 07/03/18 07:20 07/03/18 07:20 07/03/18 07:20 07/03/18 08:43 General appearance: Present: no acute distress, well-nourished Results - Labs CBC & Chem 7: 07/03/18 11:00 07/03/18 10:56 Labs: Laboratory Last Values WBC 12.6 K/mm3 (4.5-11.0) H 07/02/18 05:22 RBC 3.51 M/mm3 (3.65-5.03) L 07/02/18 05:22 Hgb 12.2 gm/dl (10.1-14.3) 07/02/18 05:22 Hct 36.9 % (30.3-42.9) 07/02/18 05:22 MCV 105 fl (79-97) H 07/02/18 05:22 MCH 35 pg (28-32) H 07/02/18 05:22 MCHC 33 % (30-34) 07/02/18 05:22 RDW 15.1 % (13.2-15.2) 07/02/18 05:22 Plt Count 132 K/mm3 (140-440) L 07/02/18 05:22 Add Manual Diff Complete 07/02/18 05:22 Total Counted 100 07/02/18 05:22 Seg Neutrophils % Road Roller Engineer 07/02/18 05:22 Seg Neuts % (Manual) 92.0 % (40.0-70.0) H 07/02/18 05:22 Band Neutrophils % 4.0 % 07/02/18 05:22 Lymphocytes % (Manual) 2.0 % (13.4-35.0) L 07/02/18 05:22 Reactive Lymphs % (Man) 0 % 07/02/18 05:22 Monocytes % (Manual) 2.0 % (0.0-7.3) 07/02/18 05:22 Eosinophils % (Manual) 0 % (0.0-4.3) 07/02/18 05:22 Basophils % (Manual) 0 % (0.0-1.8) 07/02/18 05:22 Metamyelocytes % 0 % 07/02/18 05:22 Myelocytes % 0 % 07/02/18 05:22 Promyelocytes % 0 % 07/02/18 05:22 Blast Cells % 0 % 07/02/18 05:22 Nucleated RBC % Not Reportable 07/02/18 05:22 Seg Neutrophils # Man 11.6 K/mm3 (1.8-7.7) H 07/02/18 05:22 Band Neutrophils # 0.5 K/mm3 07/02/18 05:22 Lymphocytes # (Manual) 0.3 K/mm3 (1.2-5.4) L 07/02/18 05:22 Abs React Lymphs (Man) 0.0 K/mm3 07/02/18 05:22 Monocytes # (Manual) 0.3 K/mm3 (0.0-0.8) 07/02/18 05:22 Eosinophils # (Manual) 0.0 K/mm3 (0.0-0.4) 07/02/18 05:22 Basophils # (Manual) 0.0 K/mm3 (0.0-0.1) 07/02/18 05:22 Metamyelocytes # 0.0 K/mm3 07/02/18 05:22 Myelocytes # 0.0 K/mm3 07/02/18 05:22 Promyelocytes # 0.0 K/mm3 07/02/18 05:22 Blast Cells # 0.0 K/mm3 07/02/18 05:22 WBC Morphology Not Reportable 07/02/18 05:22 Hypersegmented Neuts Not Reportable 07/02/18 05:22 Hyposegmented Neuts Not Reportable 07/02/18 05:22 Hypogranular Neuts Not Reportable 07/02/18 05:22 Smudge Cells Not Reportable 07/02/18 05:22 Toxic Granulation Not Reportable 07/02/18 05:22 Toxic Vacuolation Not Reportable 07/02/18 05:22 Dohle Bodies Not Reportable 07/02/18 05:22 Pelger-Huet Anomaly Not Reportable 07/02/18 05:22 Nomi Rods Not Reportable 07/02/18 05:22 Platelet Estimate Consistent w auto 07/02/18 05:22 Clumped Platelets Not Reportable 07/02/18 05:22 Plt Clumps, EDTA Not Reportable 07/02/18 05:22 Large Platelets Not Reportable 07/02/18 05:22 Giant Platelets Not Reportable 07/02/18 05:22 Platelet Satelliting Not Reportable 07/02/18 05:22 Plt Morphology Comment Not Reportable 07/02/18 05:22 RBC Morphology Not Reportable 07/02/18 05:22 Dimorphic RBCs Not Reportable 07/02/18 05:22 Polychromasia Not Reportable 07/02/18 05:22 Hypochromasia Not Reportable 07/02/18 05:22 Poikilocytosis Not Reportable 07/02/18 05:22 Anisocytosis Not Reportable 07/02/18 05:22 Microcytosis Not Reportable 07/02/18 05:22 Macrocytosis Not Reportable 07/02/18 05:22 Spherocytes Not Reportable 07/02/18 05:22 Pappenheimer Bodies Not Reportable 07/02/18 05:22 Sickle Cells Not Reportable 07/02/18 05:22 Target Cells Not Reportable 07/02/18 05:22 Tear Drop Cells Not Reportable 07/02/18 05:22 Ovalocytes Not Reportable 07/02/18 05:22 Helmet Cells Not Reportable 07/02/18 05:22 [place] Bodies Not Reportable 07/02/18 05:22 Erwin Rings Not Reportable 07/02/18 05:22 [place] Cells Not Reportable 07/02/18 05:22 Bite Cells Not Reportable 07/02/18 05:22 Crenated Cell Not Reportable 07/02/18 05:22 Elliptocytes Not Reportable 07/02/18 05:22 Acanthocytes (Spur) Not Reportable 07/02/18 05:22 Rouleaux Not Reportable 07/02/18 05:22 Hemoglobin C Crystals Not Reportable 07/02/18 05:22 Schistocytes Not Reportable 07/02/18 05:22 Malaria parasites Not Reportable 07/02/18 05:22 Navneet Bodies Not Reportable 07/02/18 05:22 Hem Pathologist Commnt No 07/02/18 05:22 D-Dimer > 71554 ng/mlDDU (0-234) H 06/28/18 22:26 Sodium 131 mmol/L (137-145) L 07/02/18 05:22 Potassium 3.3 mmol/L (3.6-5.0) L 07/02/18 05:22 Chloride 93.1 mmol/L (98-107) L 07/02/18 05:22 Carbon Dioxide 22 mmol/L (22-30) 07/02/18 05:22 Anion Gap 19 mmol/L 07/02/18 05:22 BUN 31 mg/dL (7-17) H 07/02/18 05:22 Creatinine 7.5 mg/dL (0.7-1.2) H 07/02/18 05:22 Estimated GFR 7 ml/min 07/02/18 05:22 BUN/Creatinine Ratio 4 % 07/02/18 05:22 Glucose 228 mg/dL (65-100) H 07/02/18 05:22 POC Glucose 90 (70-105) 07/03/18 08:08 Lactic Acid 2.20 mmol/L (0.7-2.0) H* 07/02/18 05:22 Calcium 7.7 mg/dL (8.4-10.2) L 07/02/18 05:22 Total Bilirubin 0.40 mg/dL (0.1-1.2) 06/28/18 20:54 AST 25 units/L (5-40) 06/28/18 20:54 ALT 5 units/L (7-56) L 06/28/18 20:54 Alkaline Phosphatase 88 units/L (35-129) 06/28/18 20:54 Total Creatine Kinase 118 units/L (30-135) 06/29/18 20:37 Troponin T 0.077 ng/mL (0.00-0.029) H 06/29/18 20:37 C-Reactive Protein 7.40 mg/dL (0.00-1.30) H 07/01/18 13:32 Total Protein 7.4 g/dL (6.3-8.2) 06/28/18 20:54 Albumin 3.2 g/dL (3.9-5) L 06/28/18 20:54 Albumin/Globulin Ratio 0.8 % 06/28/18 20:54 Triglycerides 194 mg/dL (2-149) H 06/28/18 10:38 Cholesterol 167 mg/dL (50-199) 06/28/18 10:38 LDL Cholesterol Direct 61 mg/dL (50-130) 06/28/18 10:38 HDL Cholesterol 68 mg/dL (40-59) H 06/28/18 10:38 Cholesterol/HDL Ratio 2.45 % 06/28/18 10:38 Active Medications - Current Medications Current Medications: Generic Name Dose Route Start Last Admin Trade Name Bhupendra PRN Reason Stop Dose Admin Aspirin 81 mg 06/29/18 13:00 07/03/18 10:12 Baby Aspirin PO 81 mg QDAY DIANE Administration Atorvastatin Calcium 40 mg 06/29/18 22:00 07/02/18 22:05 Lipitor PO 40 mg QHS DIANE Administration Calcitriol 0.5 mcg 06/29/18 13:00 07/03/18 10:12 Rocaltrol PO 0.5 mcg QDAY DIANE Administration Docusate Sodium 100 mg 07/02/18 10:00 07/03/18 10:12 Colace PO 100 mg BID DIANE Administration Famotidine 10 mg 06/30/18 10:00 07/03/18 10:12 Pepcid PO 10 mg QDAY DIANE Administration Heparin Sodium (Porcine) 5,000 unit 06/29/18 13:00 07/03/18 10:13 Heparin SUB-Q 5,000 unit Q12HR DIANE Administration Ceftriaxone Sodium 2 gm in 100 mls @ 200 mls/hr 06/30/18 10:00 07/03/18 10:13 Rocephin/Ns 2 Gm/100 Ml IV 07/04/18 10:29 200 mls/hr Q24HR DIANE Administration Protocol Heparin Sodium/Sodium Chloride 25,000 unit in 500 mls @ 28.32 mls/hr 07/03/18 11:00 Heparin/ 0.45% Nacl-25,000 Unit/500 Ml IV TITR DIANE Protocol 15 UNITS/KG/HR Insulin Human Lispro 0 unit 06/29/18 22:00 07/03/18 08:07 Humalog SUB-Q Not Given ACHS [facility] Protocol Lidocaine 1 each 06/29/18 13:00 07/02/18 15:19 Lidoderm 5% TD 1 each QDAY DIANE Administration Midodrine 10 mg 07/01/18 14:00 07/03/18 08:38 Proamatine PO 10 mg TID DIANE Administration Peritoneal Dialysis Solution 2,000 ml 07/01/18 10:00 07/02/18 22:50 Dianeal Low Calcium W/1.5% Dextrose IP 2,000 ml QID DIANE Administration Polyethylene Glycol 17 gm 07/02/18 10:00 07/03/18 10:14 Miralax 3350 PO Not Given QDAY DIANE Sevelamer Carbonate 1,600 mg 06/29/18 12:00 07/03/18 08:38 Renvela PO 1,600 mg TIDWM DIANE Administration
[2018-07-03] MEDS: DIANEAL LOW CALCIUM W/1.5% DEXTROSE IP SCH ×3 (11:06→20:00)
--- NOTE | 2018-07-03 11:12 | Progress Note ---
Assessment and Plan Patient resting on room air.O2 saturation 97% on room air. No complaint of chest pain, shortness of breath or cough.Having excessive day time sleepiness. Recommend sleep study as out patient. - Patient Problems (1) NSTEMI (non-ST elevated myocardial infarction) Current Visit: Yes Status: Acute Plan to address problem: Management as per cardiology. (2) HTN (hypertension) Current Visit: Yes Status: Acute Plan to address problem: Management as per primary care. (3) Diabetes Current Visit: Yes Status: Chronic Plan to address problem: Mangement as per primary care. (4) ESRD on peritoneal dialysis Current Visit: Yes Status: Chronic Plan to address problem: Management as per Nephrology. (5) Elevated d-dimer Current Visit: Yes Status: Acute Plan to address problem: Perfusion lung scan reported low probability for pulmonary emboli. (6) Obesity (BMI 30.0-34.9) Current Visit: Yes Status: Acute Plan to address problem: Diet and exercise to loose weight. Sleep study as out patient. Subjective Date of service: 07/03/18 Principal diagnosis: abnl trop Interval history: Patient resting on room air.O2 saturation 97% on room air. No complaint of chest pain, shortness of breath or cough.Patient Obese. Having excessive day time sleepiness. Recommend sleep study as out patient. Objective Vital Signs - 12hr 07/03/18 07/03/18 07/03/18 00:03 04:23 04:30 Temperature 98.6 F 97.0 F L 97.7 F Pulse Rate 87 64 94 H Respiratory 20 18 18 Rate Blood Pressure 97/51 99/53 Blood Pressure 113/60 [Left] O2 Sat by Pulse 100 99 96 Oximetry 07/03/18 07/03/18 07:20 08:43 Temperature Pulse Rate 90 Respiratory 16 Rate Blood Pressure 116/60 Blood Pressure [Left] O2 Sat by Pulse 98 97 Oximetry Constitutional: no acute distress, alert, other (elderly looking obese AAF, normocephalic and atraumatic with mildly increased resp effort at rest) Eyes: non-icteric ENT: oropharynx moist, other (mallampati 3) Neck: supple, no lymphadenopathy, no JVD, other (large neck circumference) Effort: mildly labored Ascultation: Bilateral: diminished breath sounds, rhonchi (scant in bases) Percussion: Bilateral: not dull Cardiovascular: regular rate and rhythm, other (No R/M) Gastrointestinal: normoactive bowel sounds, soft, non-tender, non-distended, other (No HSM) Integumentary: normal Extremities: no cyanosis, no edema, pulses normal, no ischemia or petechiae Neurologic: normal mental status, non-focal exam (grossly), pupils equal and round, motor strength normal and Psychiatric: mood appropriate, affect normal CBC and BMP: 07/03/18 11:00 07/03/18 10:56 ABG, PT/INR, D-dimer: PT/INR, D-dimer D-Dimer > 46064 ng/mlDDU (0-234) H 06/28/18 22:26 Abnormal lab findings: Abnormal Labs 06/28/18 06/28/18 06/28/18 10:38 20:54 20:54 WBC 24.8 H RBC Hgb 16.6 H Hct 50.3 H MCV 107 H MCH 35 H RDW 15.6 H Plt Count Seg Neuts % (Manual) 95.0 H Lymphocytes % (Manual) 3.0 L Seg Neutrophils # Man 23.6 H Lymphocytes # (Manual) 0.7 L D-Dimer Sodium 131 L Potassium Chloride 89.6 L Carbon Dioxide 19 L BUN 29 H Creatinine 9.3 H Glucose 174 H POC Glucose Lactic Acid Calcium ALT 5 L Troponin T 0.073 H C-Reactive Protein Albumin 3.2 L Triglycerides 194 H HDL Cholesterol 68 H 06/28/18 06/29/18 06/29/18 22:26 12:18 13:30 WBC RBC Hgb Hct MCV MCH RDW Plt Count Seg Neuts % (Manual) Lymphocytes % (Manual) Seg Neutrophils # Man Lymphocytes # (Manual) D-Dimer > 28849 H Sodium Potassium Chloride Carbon Dioxide BUN Creatinine Glucose POC Glucose 168 H Lactic Acid Calcium ALT Troponin T 0.073 H C-Reactive Protein Albumin Triglycerides HDL Cholesterol 06/29/18 06/29/18 06/29/18 13:30 14:11 16:36 WBC 19.8 H RBC Hgb 14.7 H Hct 45.4 H MCV 108 H MCH 35 H RDW 15.9 H Plt Count Seg Neuts % (Manual) Lymphocytes % (Manual) Seg Neutrophils # Man Lymphocytes # (Manual) D-Dimer Sodium 133 L Potassium Chloride 91.7 L Carbon Dioxide 20 L BUN 33 H Creatinine 9.9 H Glucose 196 H POC Glucose 165 H Lactic Acid Calcium ALT Troponin T C-Reactive Protein Albumin Triglycerides HDL Cholesterol 06/29/18 06/29/18 06/30/18 20:37 22:01 04:49 WBC 14.8 H RBC Hgb Hct MCV 106 H MCH 35 H RDW 15.5 H Plt Count Seg Neuts % (Manual) 90.0 H Lymphocytes % (Manual) 5.0 L Seg Neutrophils # Man 13.3 H Lymphocytes # (Manual) 0.7 L D-Dimer Sodium Potassium Chloride Carbon Dioxide BUN Creatinine Glucose POC Glucose 202 H Lactic Acid Calcium ALT Troponin T 0.077 H C-Reactive Protein Albumin Triglycerides HDL Cholesterol 06/30/18 06/30/18 06/30/18 04:49 08:27 12:17 WBC RBC Hgb Hct MCV MCH RDW Plt Count Seg Neuts % (Manual) Lymphocytes % (Manual) Seg Neutrophils # Man Lymphocytes # (Manual) D-Dimer Sodium 134 L Potassium 3.5 L Chloride 94.7 L Carbon Dioxide BUN 30 H Creatinine 8.8 H Glucose 182 H POC Glucose 170 H 145 H Lactic Acid Calcium 7.9 L ALT Troponin T C-Reactive Protein Albumin Triglycerides HDL Cholesterol 06/30/18 06/30/18 07/01/18 16:44 22:06 07:21 WBC 11.8 H RBC 3.32 L Hgb Hct MCV 105 H MCH 35 H RDW 15.5 H Plt Count 125 L Seg Neuts % (Manual) Lymphocytes % (Manual) Seg Neutrophils # Man Lymphocytes # (Manual) D-Dimer Sodium Potassium Chloride Carbon Dioxide BUN Creatinine Glucose POC Glucose 155 H 174 H Lactic Acid Calcium ALT Troponin T C-Reactive Protein Albumin Triglycerides HDL Cholesterol 07/01/18 07/01/18 07/01/18 07:21 08:22 11:38 WBC RBC Hgb Hct MCV MCH RDW Plt Count Seg Neuts % (Manual) Lymphocytes % (Manual) Seg Neutrophils # Man Lymphocytes # (Manual) D-Dimer Sodium 134 L Potassium Chloride 95.9 L Carbon Dioxide BUN 31 H Creatinine 8.4 H Glucose 151 H POC Glucose 117 H 166 H Lactic Acid Calcium 7.8 L ALT Troponin T C-Reactive Protein Albumin Triglycerides HDL Cholesterol 07/01/18 07/01/18 07/01/18 13:32 13:32 16:27 WBC RBC Hgb Hct MCV MCH RDW Plt Count Seg Neuts % (Manual) Lymphocytes % (Manual) Seg Neutrophils # Man Lymphocytes # (Manual) D-Dimer Sodium Potassium Chloride Carbon Dioxide BUN Creatinine Glucose POC Glucose 149 H Lactic Acid 2.20 H* Calcium ALT Troponin T C-Reactive Protein 7.40 H Albumin Triglycerides HDL Cholesterol 07/01/18 07/01/18 07/02/18 19:35 21:36 05:22 WBC RBC Hgb Hct MCV MCH RDW Plt Count Seg Neuts % (Manual) Lymphocytes % (Manual) Seg Neutrophils # Man Lymphocytes # (Manual) D-Dimer Sodium Potassium Chloride Carbon Dioxide BUN Creatinine Glucose POC Glucose 129 H Lactic Acid 2.60 H* 2.20 H* Calcium ALT Troponin T C-Reactive Protein Albumin Triglycerides HDL Cholesterol 07/02/18 07/02/18 07/02/18 05:22 05:22 07:11 WBC 12.6 H RBC 3.51 L Hgb Hct MCV 105 H MCH 35 H RDW Plt Count 132 L Seg Neuts % (Manual) 92.0 H Lymphocytes % (Manual) 2.0 L Seg Neutrophils # Man 11.6 H Lymphocytes # (Manual) 0.3 L D-Dimer Sodium 131 L Potassium 3.3 L Chloride 93.1 L Carbon Dioxide BUN 31 H Creatinine 7.5 H Glucose 228 H POC Glucose 215 H Lactic Acid Calcium 7.7 L ALT Troponin T C-Reactive Protein Albumin Triglycerides HDL Cholesterol 07/02/18 07/02/18 15:35 21:56 WBC RBC Hgb Hct MCV MCH RDW Plt Count Seg Neuts % (Manual) Lymphocytes % (Manual) Seg Neutrophils # Man Lymphocytes # (Manual) D-Dimer Sodium Potassium Chloride Carbon Dioxide BUN Creatinine Glucose POC Glucose 123 H 135 H Lactic Acid Calcium ALT Troponin T C-Reactive Protein Albumin Triglycerides HDL Cholesterol Allied health notes reviewed: nursing
[2018-07-03 11:42] LABS: Hematocrit 36.9 % (30.3-42.9); Hemoglobin 12.4 gm/dl (10.1-14.3); Mean Corpuscular HGB Conc 34 % (30-34); Mean Corpuscular Volume 103 fl (79-97); Platelet Count 140 K/mm3 (140-440); Red Blood Count 3.59 M/mm3 (3.65-5.03); Red Cell Distribution Width 14.9 % (13.2-15.2)
[2018-07-03 12:07] LABS: Calcium 7.7 mg/dL (8.4-10.2)
[2018-07-03 12:58] LABS: Anisocytosis Few; Basophils % (Manual) 0 % (0.0-1.8); Eosinophils % (Manual) 0 % (0.0-4.3); Platelet Estimate Consistent w Auto; Total Cells Counted 100
[2018-07-03 13:27] LABS: INR 0.98 (0.87-1.13)
[2018-07-03 13:28] LABS: Partial Thromboplastin Time 34.1 Sec. (24.2-36.6)
[2018-07-03] MEDS: HEPARIN/ 0.45% NACL-25,000 UNIT/500 ML 25,000 UNIT/500 ML BAG IV SCH (14:09)
[2018-07-04] MEDS: DIANEAL LOW CALCIUM W/1.5% DEXTROSE IP SCH ×5 (00:41→19:22)
[2018-07-04 06:01] LABS: Basophils # (Auto) 0.2 K/mm3 (0.0-0.1); Basophils % (Auto) 1.4 % (0.0-1.8); Eosinophils # (Auto) 0.1 K/mm3 (0.0-0.4); Eosinophils % (Auto) 0.8 % (0.0-4.3); Hematocrit 39.5 % (30.3-42.9); Hemoglobin 13.1 gm/dl (10.1-14.3); Lymphocytes # (Auto) 0.7 K/mm3 (1.2-5.4); Mean Corpuscular HGB Conc 33 % (30-34); Mean Corpuscular Volume 104 fl (79-97); Monocytes # (Auto) 0.7 K/mm3 (0.0-0.8); Monocytes % (Auto) 5.1 % (0.0-7.3); Platelet Count 139 K/mm3 (140-440); Red Blood Count 3.79 M/mm3 (3.65-5.03); Red Cell Distribution Width 14.7 % (13.2-15.2)
[2018-07-04 06:12] LABS: Calcium 7.8 mg/dL (8.4-10.2)
--- NOTE | 2018-07-04 08:32 | Progress Note ---
Assessment and Plan Assessment and plan: Patient is a 67-year-old female past medical history of end-stage renal disease on peritoneal dialysis, hypertension hyperlipidemia, diabetes mellitus type 2 on diet control, s/p right hip and left knee replacement presented to ER by EMS after having a fall around 9 AM in the morning but she had no loss of consciousness or hit her head. she was sitting on bed and accidentaly "slid to ground". She was unable to get up from the bed as she was feeling very weak in her legs. Her family called emergency services to break into her house around 5pm. She was then brought to the ER for further evaluation and management . She noted to have highly elevated d-dimer, elevated white count. In the ED, patient was hypotensive w/ WBC 24.8. CTA chest was unremarkable. V/Q scan was also low prob PE. She denies fever, chills, PD fluid has been clear. She was placed on Levophed, given IV Rocephin and then called for admission for further evaluation and management. Cx negative to date, weaned off levophed, s/p PD by renal. /SIRS without organ dysfunction - suspected sepsis on admission - Continue empiric antibiotics, follow blood culture report - No infiltrates noted on CTA chest/chest x-ray/VQ scan, patient does not make urine /Hypotension vs septic shock - Patient was placed on levophed, now weaned off - ordered steroid x1 dose, cont midodrine for now /HLD, on statin /ESRD on PD, Nephrology following /Diabetes type 2, diet controlled, SSI PLACED as needed ACHS /Elevated troponin/NSTEMI type 2 - Ordered serial troponin, CPK level - Cardiology following - Stress test negative DVT left lower ext. Was Started Heparin drip consulted Hematology and she was seen by Dr. Funez. I discussed with him amd he recommends Eliquis. Start Eliquis. Discontinue heparin Debility PT evaluation History Interval history: Generalized weakness Newly diagnosed DVT left leg Hospitalist Physical - Physical exam Narrative exam: EN: Not in acute distress, lying in bed, obese HEENT: Normocephalic, atraumatic, Neck: supple, No JVD heart: S1 and S2 reg, no murmurs, rubs or gallop Lungs: clear to auscultation bilateral, wheeze Abd:soft, non tender, non distended, PD catheter. normal bowel sounds Ext: Edema both lower ext, no cyanosis Neuro:Awake,alert,oriented X 3, no focal signs, moves all ext Psych: normal mood - Constitutional Vitals: Temp Pulse Resp BP Pulse Ox 98.2 F 67 16 119/61 97 07/04/18 04:01 07/04/18 04:01 07/04/18 04:01 07/04/18 04:01 07/04/18 04:01 General appearance: Present: no acute distress, well-nourished Results - Labs CBC & Chem 7: 07/04/18 05:22 07/04/18 05:22 Labs: Laboratory Last Values WBC 13.1 K/mm3 (4.5-11.0) H 07/04/18 05:22 RBC 3.79 M/mm3 (3.65-5.03) 07/04/18 05:22 Hgb 13.1 gm/dl (10.1-14.3) 07/04/18 05:22 Hct 39.5 % (30.3-42.9) 07/04/18 05:22 MCV 104 fl (79-97) H 07/04/18 05:22 MCH 35 pg (28-32) H 07/04/18 05:22 MCHC 33 % (30-34) 07/04/18 05:22 RDW 14.7 % (13.2-15.2) 07/04/18 05:22 Plt Count 139 K/mm3 (140-440) L 07/04/18 05:22 Lymph % (Auto) 5.0 % (13.4-35.0) L 07/04/18 05:22 [place] % (Auto) 5.1 % (0.0-7.3) 07/04/18 05:22 Eos % (Auto) 0.8 % (0.0-4.3) 07/04/18 05:22 Baso % (Auto) 1.4 % (0.0-1.8) 07/04/18 05:22 Lymph # 0.7 K/mm3 (1.2-5.4) L 07/04/18 05:22 [place] # 0.7 K/mm3 (0.0-0.8) 07/04/18 05:22 Eos # 0.1 K/mm3 (0.0-0.4) 07/04/18 05:22 Baso # 0.2 K/mm3 (0.0-0.1) H 07/04/18 05:22 Add Manual Diff Complete 07/03/18 11:00 Total Counted 100 07/03/18 11:00 Seg Neutrophils % 87.7 % (40.0-70.0) H 07/04/18 05:22 Seg Neuts % (Manual) 94.0 % (40.0-70.0) H 07/03/18 11:00 Band Neutrophils % 0 % 07/03/18 11:00 Lymphocytes % (Manual) 5.0 % (13.4-35.0) L 07/03/18 11:00 Reactive Lymphs % (Man) 0 % 07/03/18 11:00 Monocytes % (Manual) 1.0 % (0.0-7.3) 07/03/18 11:00 Eosinophils % (Manual) 0 % (0.0-4.3) 07/03/18 11:00 Basophils % (Manual) 0 % (0.0-1.8) 07/03/18 11:00 Metamyelocytes % 0 % 07/03/18 11:00 Myelocytes % 0 % 07/03/18 11:00 Promyelocytes % 0 % 07/03/18 11:00 Blast Cells % 0 % 07/03/18 11:00 Nucleated RBC % Not Reportable 07/03/18 11:00 Seg Neutrophils # 11.5 K/mm3 (1.8-7.7) H 07/04/18 05:22 Seg Neutrophils # Man 11.2 K/mm3 (1.8-7.7) H 07/03/18 11:00 Band Neutrophils # 0.0 K/mm3 07/03/18 11:00 Lymphocytes # (Manual) 0.6 K/mm3 (1.2-5.4) L 07/03/18 11:00 Abs React Lymphs (Man) 0.0 K/mm3 07/03/18 11:00 Monocytes # (Manual) 0.1 K/mm3 (0.0-0.8) 07/03/18 11:00 Eosinophils # (Manual) 0.0 K/mm3 (0.0-0.4) 07/03/18 11:00 Basophils # (Manual) 0.0 K/mm3 (0.0-0.1) 07/03/18 11:00 Metamyelocytes # 0.0 K/mm3 07/03/18 11:00 Myelocytes # 0.0 K/mm3 07/03/18 11:00 Promyelocytes # 0.0 K/mm3 07/03/18 11:00 Blast Cells # 0.0 K/mm3 07/03/18 11:00 WBC Morphology Not Reportable 07/03/18 11:00 Hypersegmented Neuts Not Reportable 07/03/18 11:00 Hyposegmented Neuts Not Reportable 07/03/18 11:00 Hypogranular Neuts Not Reportable 07/03/18 11:00 Smudge Cells Not Reportable 07/03/18 11:00 Toxic Granulation Not Reportable 07/03/18 11:00 Toxic Vacuolation Not Reportable 07/03/18 11:00 Dohle Bodies Not Reportable 07/03/18 11:00 Pelger-Huet Anomaly Not Reportable 07/03/18 11:00 Nomi Rods Not Reportable 07/03/18 11:00 Platelet Estimate Consistent w auto 07/03/18 11:00 Clumped Platelets Not Reportable 07/03/18 11:00 Plt Clumps, EDTA Not Reportable 07/03/18 11:00 Large Platelets Not Reportable 07/03/18 11:00 Giant Platelets Not Reportable 07/03/18 11:00 Platelet Satelliting Not Reportable 07/03/18 11:00 Plt Morphology Comment Not Reportable 07/03/18 11:00 RBC Morphology Not Reportable 07/03/18 11:00 Dimorphic RBCs Not Reportable 07/03/18 11:00 Polychromasia Not Reportable 07/03/18 11:00 Hypochromasia Not Reportable 07/03/18 11:00 Poikilocytosis Not Reportable 07/03/18 11:00 Anisocytosis Few 07/03/18 11:00 Microcytosis Not Reportable 07/03/18 11:00 Macrocytosis Not Reportable 07/03/18 11:00 Spherocytes Not Reportable 07/03/18 11:00 Pappenheimer Bodies Not Reportable 07/03/18 11:00 Sickle Cells Not Reportable 07/03/18 11:00 Target Cells Not Reportable 07/03/18 11:00 Tear Drop Cells Not Reportable 07/03/18 11:00 Ovalocytes Not Reportable 07/03/18 11:00 Helmet Cells Not Reportable 07/03/18 11:00 [place]ow Bodies Not Reportable 07/03/18 11:00 [place] Rings Not Reportable 07/03/18 11:00 [place] Cells Not Reportable 07/03/18 11:00 Bite Cells Not Reportable 07/03/18 11:00 Crenated Cell Not Reportable 07/03/18 11:00 Elliptocytes Not Reportable 07/03/18 11:00 Acanthocytes (Spur) Not Reportable 07/03/18 11:00 Rouleaux Not Reportable 07/03/18 11:00 Hemoglobin C Crystals Not Reportable 07/03/18 11:00 Schistocytes Not Reportable 07/03/18 11:00 Malaria parasites Not Reportable 07/03/18 11:00 Navneet Bodies Not Reportable 07/03/18 11:00 Hem Pathologist Commnt No 07/03/18 11:00 PT 13.6 Sec. (12.2-14.9) 07/03/18 12:39 INR 0.98 (0.87-1.13) 07/03/18 12:39 APTT 34.1 Sec. (24.2-36.6) 07/03/18 12:39 D-Dimer > 25263 ng/mlDDU (0-234) H 06/28/18 22:26 Heparin Anti-Xa Level 1.31 U.I./ml (0.3-0.7) H 07/04/18 05:22 Sodium 132 mmol/L (137-145) L 07/04/18 05:22 Potassium 3.1 mmol/L (3.6-5.0) L 07/04/18 05:22 Chloride 92.4 mmol/L (98-107) L 07/04/18 05:22 Carbon Dioxide 25 mmol/L (22-30) 07/04/18 05:22 Anion Gap 18 mmol/L 07/04/18 05:22 BUN 30 mg/dL (7-17) H 07/04/18 05:22 Creatinine 7.4 mg/dL (0.7-1.2) H 07/04/18 05:22 Estimated GFR 7 ml/min 07/04/18 05:22 BUN/Creatinine Ratio 4 % 07/04/18 05:22 Glucose 113 mg/dL (65-100) H 07/04/18 05:22 POC Glucose 106 (70-105) H 07/04/18 01:08 Lactic Acid 2.20 mmol/L (0.7-2.0) H* 07/02/18 05:22 Calcium 7.8 mg/dL (8.4-10.2) L 07/04/18 05:22 Total Bilirubin 0.40 mg/dL (0.1-1.2) 06/28/18 20:54 AST 25 units/L (5-40) 06/28/18 20:54 ALT 5 units/L (7-56) L 06/28/18 20:54 Alkaline Phosphatase 88 units/L (35-129) 06/28/18 20:54 Total Creatine Kinase 118 units/L (30-135) 06/29/18 20:37 Troponin T 0.077 ng/mL (0.00-0.029) H 06/29/18 20:37 C-Reactive Protein 7.40 mg/dL (0.00-1.30) H 07/01/18 13:32 Total Protein 7.4 g/dL (6.3-8.2) 06/28/18 20:54 Albumin 3.2 g/dL (3.9-5) L 06/28/18 20:54 Albumin/Globulin Ratio 0.8 % 06/28/18 20:54 Triglycerides 194 mg/dL (2-149) H 06/28/18 10:38 Cholesterol 167 mg/dL (50-199) 06/28/18 10:38 LDL Cholesterol Direct 61 mg/dL (50-130) 06/28/18 10:38 HDL Cholesterol 68 mg/dL (40-59) H 06/28/18 10:38 Cholesterol/HDL Ratio 2.45 % 06/28/18 10:38 Active Medications - Current Medications Current Medications: Generic Name Dose Route Start Last Admin Trade Name Freq PRN Reason Stop Dose Admin Aspirin 81 mg 06/29/18 13:00 07/03/18 10:12 Baby Aspirin PO 81 mg QDAY DIANE Administration Atorvastatin Calcium 40 mg 06/29/18 22:00 07/03/18 21:39 Lipitor PO 40 mg QHS DIANE Administration Calcitriol 0.5 mcg 06/29/18 13:00 07/03/18 10:12 Rocaltrol PO 0.5 mcg QDAY DIANE Administration Docusate Sodium 100 mg 07/02/18 10:00 07/03/18 21:39 Colace PO 100 mg BID DIANE Administration Famotidine 10 mg 06/30/18 10:00 07/03/18 10:12 Pepcid PO 10 mg QDAY DIANE Administration Ceftriaxone Sodium 2 gm in 100 mls @ 200 mls/hr 06/30/18 10:00 07/03/18 10:13 Rocephin/Ns 2 Gm/100 Ml IV 07/04/18 10:29 200 mls/hr Q24HR DIANE Administration Protocol Heparin Sodium/Sodium Chloride 25,000 unit in 500 mls @ 27 mls/hr 07/03/18 12:00 07/03/18 23:13 Heparin/ 0.45% Nacl-25,000 Unit/500 Ml IV 1,450 units/hr TITR DIANE 29 mls/hr Titration Protocol 1,350 UNITS/HR Insulin Human Lispro 0 unit 06/29/18 22:00 07/03/18 22:57 Humalog SUB-Q 2 unit ACHS DIANE Administration Protocol Lidocaine 1 each 06/29/18 13:00 07/03/18 11:02 Lidoderm 5% TD 1 each QDAY DIANE Administration Midodrine 10 mg 07/01/18 14:00 07/03/18 21:39 Proamatine PO 10 mg TID DIANE Administration Peritoneal Dialysis Solution 2,000 ml 07/01/18 10:00 07/04/18 00:41 Dianeal Low Calcium W/1.5% Dextrose IP 2,000 ml QID DIANE Administration Polyethylene Glycol 17 gm 07/02/18 10:00 07/03/18 10:14 Miralax 3350 PO Not Given QDAY DIANE Sevelamer Carbonate 1,600 mg 06/29/18 12:00 07/03/18 17:47 Renvela PO 1,600 mg TIDWM DIANE Administration
[2018-07-04] MEDS: PROAMATINE PO SCH ×3 (08:37→21:01)
[2018-07-04] MEDS: RENVELA PO SCH ×3 (08:40→19:00)
--- NOTE | 2018-07-04 08:47 | Event Note ---
Date: 07/04/18 [id number]
[2018-07-04] MEDS: PEPCID PO SCH (09:56)
[2018-07-04] MEDS: BABY ASPIRIN PO SCH (09:56)
[2018-07-04] MEDS: MIRALAX 3350 PO SCH (09:56)
[2018-07-04] MEDS: ROCALTROL PO SCH (09:56)
[2018-07-04] MEDS: COLACE PO SCH ×2 (09:56→22:53)
[2018-07-04] MEDS: LIDODERM 5% TD SCH (09:56)
[2018-07-04] MEDS: ROCEPHIN/NS 2 GM/100 ML 2 GM/100 ML BAG IV SCH (09:58)
--- NOTE | 2018-07-04 09:58 | Progress Note ---
Assessment and Plan Severe sepsis with septic shock HLD ESRD on PD Diabetes Elevated troponin/NSTEMI type 2 LLExt DVT -Nutritional support - Nephrology for peritoneal dialysis - No infiltrates noted on CTA chest/chest x-ray/VQ scan -Increase activity -On midodrine for blood pressure support -De-escalate antibiotics based on cultures -Continue anticoagulation with Eliquis, monitor for bleeding complications -Influenza and pneumonia vaccination per protocol prior to discharge -Continue all supportive care Subjective Date of service: 07/04/18 Principal diagnosis: abnl trop Interval history: Patient is seen today for: Septic Shock (etiology unclear) with lactic acidosis and hypotension; Hyperlipidemia; ESRD on PD; Diabetes type 2; Elevated troponin/NSTEMI type 2 Seen and examined at bedside; 24hour events reviewed; nursing and respiratory care staff consulted; no adverse overnight events reported to me; resting peacefully in bed; looks and feels better; denies acute chest pains or palpi tations; No N/V/F/C; Objective Vital Signs - 12hr 07/03/18 07/04/18 07/04/18 22:00 01:03 01:13 Temperature 98.7 F 98.4 F Pulse Rate 83 85 69 Respiratory 20 12 Rate Blood Pressure 126/80 116/79 O2 Sat by Pulse 96 98 97 Oximetry 07/04/18 04:01 Temperature 98.2 F Pulse Rate 67 Respiratory 16 Rate Blood Pressure 119/61 O2 Sat by Pulse 97 Oximetry Constitutional: no acute distress, alert, other (elderly looking obese AAF, normocephalic and atraumatic) Eyes: non-icteric ENT: oropharynx moist, other (mallampati 3) Neck: supple, no lymphadenopathy, no JVD, other (large neck circumference) Effort: normal Ascultation: Bilateral: diminished breath sounds, rhonchi (scant in bases) Percussion: Bilateral: not dull Cardiovascular: regular rate and rhythm, other (No R/M) Gastrointestinal: normoactive bowel sounds, soft, non-tender, non-distended, other (No HSM) Integumentary: normal Extremities: no cyanosis, no edema, pulses normal, no ischemia or petechiae Neurologic: normal mental status, non-focal exam (grossly), pupils equal and round, motor strength normal and Psychiatric: mood appropriate, affect normal CBC and BMP: 07/05/18 06:17 07/05/18 06:17 ABG, PT/INR, D-dimer: PT/INR, D-dimer PT 13.6 Sec. (12.2-14.9) 07/03/18 12:39 INR 0.98 (0.87-1.13) 07/03/18 12:39 D-Dimer > 60743 ng/mlDDU (0-234) H 06/28/18 22:26 Abnormal lab findings: Abnormal Labs 06/28/18 06/28/18 06/28/18 10:38 20:54 20:54 WBC 24.8 H RBC Hgb 16.6 H Hct 50.3 H MCV 107 H MCH 35 H RDW 15.6 H Plt Count Lymph % (Auto) Lymph # Baso # Seg Neutrophils % Seg Neuts % (Manual) 95.0 H Lymphocytes % (Manual) 3.0 L Seg Neutrophils # Seg Neutrophils # Man 23.6 H Lymphocytes # (Manual) 0.7 L D-Dimer Heparin Anti-Xa Level Sodium 131 L Potassium Chloride 89.6 L Carbon Dioxide 19 L BUN 29 H Creatinine 9.3 H Glucose 174 H POC Glucose Lactic Acid Calcium ALT 5 L Troponin T 0.073 H C-Reactive Protein Albumin 3.2 L Triglycerides 194 H HDL Cholesterol 68 H 06/28/18 06/29/18 06/29/18 22:26 12:18 13:30 WBC RBC Hgb Hct MCV MCH RDW Plt Count Lymph % (Auto) Lymph # Baso # Seg Neutrophils % Seg Neuts % (Manual) Lymphocytes % (Manual) Seg Neutrophils # Seg Neutrophils # Man Lymphocytes # (Manual) D-Dimer > 76259 H Heparin Anti-Xa Level Sodium Potassium Chloride Carbon Dioxide BUN Creatinine Glucose POC Glucose 168 H Lactic Acid Calcium ALT Troponin T 0.073 H C-Reactive Protein Albumin Triglycerides HDL Cholesterol 06/29/18 06/29/18 06/29/18 13:30 14:11 16:36 WBC 19.8 H RBC Hgb 14.7 H Hct 45.4 H MCV 108 H MCH 35 H RDW 15.9 H Plt Count Lymph % (Auto) Lymph # Baso # Seg Neutrophils % Seg Neuts % (Manual) Lymphocytes % (Manual) Seg Neutrophils # Seg Neutrophils # Man Lymphocytes # (Manual) D-Dimer Heparin Anti-Xa Level Sodium 133 L Potassium Chloride 91.7 L Carbon Dioxide 20 L BUN 33 H Creatinine 9.9 H Glucose 196 H POC Glucose 165 H Lactic Acid Calcium ALT Troponin T C-Reactive Protein Albumin Triglycerides HDL Cholesterol 06/29/18 06/29/18 06/30/18 20:37 22:01 04:49 WBC 14.8 H RBC Hgb Hct MCV 106 H MCH 35 H RDW 15.5 H Plt Count Lymph % (Auto) Lymph # Baso # Seg Neutrophils % Seg Neuts % (Manual) 90.0 H Lymphocytes % (Manual) 5.0 L Seg Neutrophils # Seg Neutrophils # Man 13.3 H Lymphocytes # (Manual) 0.7 L D-Dimer Heparin Anti-Xa Level Sodium Potassium Chloride Carbon Dioxide BUN Creatinine Glucose POC Glucose 202 H Lactic Acid Calcium ALT Troponin T 0.077 H C-Reactive Protein Albumin Triglycerides HDL Cholesterol 06/30/18 06/30/18 06/30/18 04:49 08:27 12:17 WBC RBC Hgb Hct MCV MCH RDW Plt Count Lymph % (Auto) Lymph # Baso # Seg Neutrophils % Seg Neuts % (Manual) Lymphocytes % (Manual) Seg Neutrophils # Seg Neutrophils # Man Lymphocytes # (Manual) D-Dimer Heparin Anti-Xa Level Sodium 134 L Potassium 3.5 L Chloride 94.7 L Carbon Dioxide BUN 30 H Creatinine 8.8 H Glucose 182 H POC Glucose 170 H 145 H Lactic Acid Calcium 7.9 L ALT Troponin T C-Reactive Protein Albumin Triglycerides HDL Cholesterol 06/30/18 06/30/18 07/01/18 16:44 22:06 07:21 WBC 11.8 H RBC 3.32 L Hgb Hct MCV 105 H MCH 35 H RDW 15.5 H Plt Count 125 L Lymph % (Auto) Lymph # Baso # Seg Neutrophils % Seg Neuts % (Manual) Lymphocytes % (Manual) Seg Neutrophils # Seg Neutrophils # Man Lymphocytes # (Manual) D-Dimer Heparin Anti-Xa Level Sodium Potassium Chloride Carbon Dioxide BUN Creatinine Glucose POC Glucose 155 H 174 H Lactic Acid Calcium ALT Troponin T C-Reactive Protein Albumin Triglycerides HDL Cholesterol 07/01/18 07/01/18 07/01/18 07:21 08:22 11:38 WBC RBC Hgb Hct MCV MCH RDW Plt Count Lymph % (Auto) Lymph # Baso # Seg Neutrophils % Seg Neuts % (Manual) Lymphocytes % (Manual) Seg Neutrophils # Seg Neutrophils # Man Lymphocytes # (Manual) D-Dimer Heparin Anti-Xa Level Sodium 134 L Potassium Chloride 95.9 L Carbon Dioxide BUN 31 H Creatinine 8.4 H Glucose 151 H POC Glucose 117 H 166 H Lactic Acid Calcium 7.8 L ALT Troponin T C-Reactive Protein Albumin Triglycerides HDL Cholesterol 07/01/18 07/01/18 07/01/18 13:32 13:32 16:27 WBC RBC Hgb Hct MCV MCH RDW Plt Count Lymph % (Auto) Lymph # Baso # Seg Neutrophils % Seg Neuts % (Manual) Lymphocytes % (Manual) Seg Neutrophils # Seg Neutrophils # Man Lymphocytes # (Manual) D-Dimer Heparin Anti-Xa Level Sodium Potassium Chloride Carbon Dioxide BUN Creatinine Glucose POC Glucose 149 H Lactic Acid 2.20 H* Calcium ALT Troponin T C-Reactive Protein 7.40 H Albumin Triglycerides HDL Cholesterol 07/01/18 07/01/18 07/02/18 19:35 21:36 05:22 WBC RBC Hgb Hct MCV MCH RDW Plt Count Lymph % (Auto) Lymph # Baso # Seg Neutrophils % Seg Neuts % (Manual) Lymphocytes % (Manual) Seg Neutrophils # Seg Neutrophils # Man Lymphocytes # (Manual) D-Dimer Heparin Anti-Xa Level Sodium Potassium Chloride Carbon Dioxide BUN Creatinine Glucose POC Glucose 129 H Lactic Acid 2.60 H* 2.20 H* Calcium ALT Troponin T C-Reactive Protein Albumin Triglycerides HDL Cholesterol 07/02/18 07/02/18 07/02/18 05:22 05:22 07:11 WBC 12.6 H RBC 3.51 L Hgb Hct MCV 105 H MCH 35 H RDW Plt Count 132 L Lymph % (Auto) Lymph # Baso # Seg Neutrophils % Seg Neuts % (Manual) 92.0 H Lymphocytes % (Manual) 2.0 L Seg Neutrophils # Seg Neutrophils # Man 11.6 H Lymphocytes # (Manual) 0.3 L D-Dimer Heparin Anti-Xa Level Sodium 131 L Potassium 3.3 L Chloride 93.1 L Carbon Dioxide BUN 31 H Creatinine 7.5 H Glucose 228 H POC Glucose 215 H Lactic Acid Calcium 7.7 L ALT Troponin T C-Reactive Protein Albumin Triglycerides HDL Cholesterol 07/02/18 07/02/18 07/03/18 15:35 21:56 10:56 WBC RBC Hgb Hct MCV MCH RDW Plt Count Lymph % (Auto) Lymph # Baso # Seg Neutrophils % Seg Neuts % (Manual) Lymphocytes % (Manual) Seg Neutrophils # Seg Neutrophils # Man Lymphocytes # (Manual) D-Dimer Heparin Anti-Xa Level Sodium 130 L Potassium Chloride 91.6 L Carbon Dioxide BUN 33 H Creatinine 7.8 H Glucose POC Glucose 123 H 135 H Lactic Acid Calcium 7.7 L ALT Troponin T C-Reactive Protein Albumin Triglycerides HDL Cholesterol 07/03/18 07/03/18 07/03/18 11:00 21:03 22:06 WBC 11.9 H RBC 3.59 L Hgb Hct MCV 103 H MCH 35 H RDW Plt Count Lymph % (Auto) Lymph # Baso # Seg Neutrophils % Seg Neuts % (Manual) 94.0 H Lymphocytes % (Manual) 5.0 L Seg Neutrophils # Seg Neutrophils # Man 11.2 H Lymphocytes # (Manual) 0.6 L D-Dimer Heparin Anti-Xa Level 0.28 L Sodium Potassium Chloride Carbon Dioxide BUN Creatinine Glucose POC Glucose 177 H Lactic Acid Calcium ALT Troponin T C-Reactive Protein Albumin Triglycerides HDL Cholesterol 07/04/18 07/04/18 07/04/18 01:08 05:22 05:22 WBC 13.1 H RBC Hgb Hct MCV 104 H MCH 35 H RDW Plt Count 139 L Lymph % (Auto) 5.0 L Lymph # 0.7 L Baso # 0.2 H Seg Neutrophils % 87.7 H Seg Neuts % (Manual) Lymphocytes % (Manual) Seg Neutrophils # 11.5 H Seg Neutrophils # Man Lymphocytes # (Manual) D-Dimer Heparin Anti-Xa Level Sodium 132 L Potassium 3.1 L Chloride 92.4 L Carbon Dioxide BUN 30 H Creatinine 7.4 H Glucose 113 H POC Glucose 106 H Lactic Acid Calcium 7.8 L ALT Troponin T C-Reactive Protein Albumin Triglycerides HDL Cholesterol 07/04/18 05:22 WBC RBC Hgb Hct MCV MCH RDW Plt Count Lymph % (Auto) Lymph # Baso # Seg Neutrophils % Seg Neuts % (Manual) Lymphocytes % (Manual) Seg Neutrophils # Seg Neutrophils # Man Lymphocytes # (Manual) D-Dimer Heparin Anti-Xa Level 1.31 H Sodium Potassium Chloride Carbon Dioxide BUN Creatinine Glucose POC Glucose Lactic Acid Calcium ALT Troponin T C-Reactive Protein Albumin Triglycerides HDL Cholesterol Allied health notes reviewed: nursing
[2018-07-04] MEDS: HumaLOG SUB-Q SCH ×4 (09:59→22:53)
--- NOTE | 2018-07-04 10:45 | Progress Note ---
Assessment and Plan Impression: * End stage renal disease on PD * LE DVT * Leukocytosis --Blood cx: NGTD * Elevated troponin - r/o NSTEMI * Hypotension --TTE: LVEF 55-60% --Strest shannon: nml perfusion, nml LV function * Hypokalemia - resolved * Secondary hyperparathyroidism * Erythrocytosis, resolved - ?secondary to hemoconcentration vs other --Renal u/s: no mass, small bilateral cysts Plan: * Continue Midodrine to 10mg TID (was taking 10mg BID prior to admission) * Continue PD exchanges - 1.5% dextrose * Have ordered PD effluent cell count not yet collected discussed with RN again today; doubt peritonitis as patient is asx and PD fluid has remained clear; culture in progress * Anticoagulation per primary team/hematology * Cardiology work up/findings noted * Empiric abx per primary team * Renal diet * Dose medications for renal function * Continue binders and calcitriol Subjective Date of service: 07/04/18 Principal diagnosis: abnl trop Objective - Vital Signs Vital signs: Vital Signs - 12hr 07/04/18 07/04/18 07/04/18 01:03 01:13 04:01 Temperature 98.7 F 98.4 F 98.2 F Pulse Rate 85 69 67 Respiratory 20 12 16 Rate Blood Pressure 126/80 116/79 119/61 O2 Sat by Pulse 98 97 97 Oximetry - General Appearance General appearance: well-developed, well-nourished EENT: ATNC Respiratory: Present: Clear to Ascultation Cardiology: regular, S1S2 Gastrointestinal: normal, no tenderness, no distended Integumentary: no rash, warm and dry Neurologic: no focal deficit Musculoskeletal: other (no edema) Psychiatric: cooperative - Lab 07/04/18 05:22 07/04/18 05:22 Most recent lab results Calcium 7.8 mg/dL (8.4-10.2) L 07/04/18 05:22 Medications & Allergies - Medications Allergies/Adverse Reactions: Allergies No Known Allergies Allergy (Verified 08/18/14 08:52) Home Medications: Home Medications Medication Instructions Recorded Confirmed Last Taken Type Aspirin [Aspirin BABY CHEW TAB] 81 mg PO QDAY #30 08/19/14 06/29/18 06/23/15 Rx Calcitriol [Rocaltrol] 0.5 mcg PO QDAY 06/29/18 06/29/18 Unknown History Potassium Chloride [Klor-Con M20] 20 meq PO DAILY 06/29/18 06/29/18 Unknown History Sevelamer Carbonate 1,600 mg PO TID 06/29/18 06/29/18 Unknown History Simvastatin [Zocor] 20 mg PO DAILY 06/29/18 06/29/18 Unknown History Active Medications: Generic Name Dose Route Start Last Admin Trade Name Shravanq PRN Reason Stop Dose Admin Aspirin 81 mg 06/29/18 13:00 07/04/18 09:56 Baby Aspirin PO 81 mg QDAY DIANE Administration Atorvastatin Calcium 40 mg 06/29/18 22:00 07/03/18 21:39 Lipitor PO 40 mg QHS DIANE Administration Calcitriol 0.5 mcg 06/29/18 13:00 07/04/18 09:56 Rocaltrol PO 0.5 mcg QDAY DIANE Administration Docusate Sodium 100 mg 07/02/18 10:00 07/04/18 09:56 Colace PO 100 mg BID DIANE Administration Famotidine 10 mg 06/30/18 10:00 07/04/18 09:56 Pepcid PO 10 mg QDAY DIANE Administration Heparin Sodium/Sodium Chloride 25,000 unit in 500 mls @ 27 mls/hr 07/03/18 12: 00 07/04/18 08:42 Heparin/ 0.45% Nacl-25,000 Unit/500 Ml IV 1,250 units/hr TITR DIANE 25 mls/hr Titration Protocol 1,350 UNITS/HR Insulin Human Lispro 0 unit 06/29/18 22:00 07/04/18 09:59 Humalog SUB-Q Not Given ACHS DIANE Protocol Lidocaine 1 each 06/29/18 13:00 07/04/18 09:56 Lidoderm 5% TD 1 each QDAY DIANE Administration Midodrine 10 mg 07/01/18 14:00 07/04/18 08:37 Proamatine PO 10 mg TID DIANE Administration Peritoneal Dialysis Solution 2,000 ml 07/01/18 10:00 07/04/18 00:41 Dianeal Low Calcium W/1.5% Dextrose IP 2,000 ml QID DIANE Administration Polyethylene Glycol 17 gm 07/02/18 10:00 07/04/18 09:56 Miralax 3350 PO 17 gm QDAY DIANE Administration Sevelamer Carbonate 1,600 mg 06/29/18 12:00 07/04/18 08:40 Renvela PO 1,600 mg TIDWM DIANE Administration
[2018-07-04] MEDS: HEPARIN/ 0.45% NACL-25,000 UNIT/500 ML 25,000 UNIT/500 ML BAG IV SCH (13:58)
--- NOTE | 2018-07-04 14:55 | Consultation ---
REFERRING PHYSICIAN: Dr. Fabian. REASON FOR CONSULTATION: DVT. HISTORY OF PRESENT ILLNESS: I saw the patient, a 67-year-old female in the medical floor. The patient has a history of end-stage renal disease on peritoneal dialysis, hypertension, hyperlipidemia, diabetes. She had a fall from her bed and was admitted on 06/29/2018. Blood pressure was low at admission and white cell count was high. CTA chest was done. V/Q scan was low probability PE. The patient received supportive care and was given antibiotics. During this admission, the patient has been seen by cardiology team, nephrology team, and pulmonary team. Doppler on 07/03/2018 showed extensive DVT in the left leg from mid superficial femoral to the calf. No DVT on the right side. I have been asked to evaluate the patient for this. The patient was placed on heparin drip and is being monitored. PAST MEDICAL HISTORY: Diabetes, hypertension, hyperlipidemia, ESRD on PD. PAST SURGICAL HISTORY: PD catheter. SOCIAL HISTORY: No history of tobacco or alcohol usage. The patient says she lives alone. FAMILY HISTORY: Diabetes and hypertension. REVIEW OF SYSTEMS: At this time, no headache, no visual disturbances, no ear discharge, no fever, no chills, no abdominal pain, no vomiting, no diarrhea, no dysuria. No seizure or syncope. The patient has a history of fall and low blood pressure and was in ICU. ALLERGIES: None. MEDICATIONS: Present medications include aspirin, atorvastatin, calcitriol, ceftriaxone, heparin drip, insulin, lidocaine. PHYSICAL EXAMINATION: VITAL SIGNS: Temperature 98, pulse 67, respirations 16, BP 109/61. HEENT: No pallor. No icterus. NECK: No neck lymph nodes. HEART: S1, S2. LUNGS: Clear to auscultation. ABDOMEN: Soft. EXTREMITIES: Right leg edema present. NEUROLOGIC: Alert, awake, oriented. LABORATORY DATA: White cells 13, hemoglobin 13, MCV 104, platelet 139. PT 13. D-dimer was elevated. Potassium 3.1, creatinine 7.4, calcium 7.8, bilirubin 0.4. RADIOLOGY: Leg Doppler, left leg DVT present. Abdomen and pelvis CT, this shows dialysis catheter, atrophic kidneys, umbilical hernia, cardiomegaly. CTA chest, atelectasis of left lower lung. ASSESSMENT AND PLAN: 1. Left leg deep venous thrombosis. The patient is on heparin drip. The patient is on peritoneal dialysis. The dose of Eliquis or any direct thrombin inhibitors or other anticoagulation monitoring may become challenging. I will discuss with other team members regarding the dosage. The question arises if a lower dose of Eliquis is sufficient. 2. MCV elevated. We will investigate. 3. Elevated D-dimers. 4. History of renal failure, on peritoneal dialysis. 5. History of hypertension. She was hypotensive at admission. 6. History of diabetes. 7. I will follow the patient during inpatient stay and then in the clinic setting for anticoagulation management. Option of Coumadin is also available but that would involve monitoring. JOB# [id number] NM/NTS
[2018-07-04] MEDS: ELIQUIS PO SCH ×2 (16:06→22:51)
[2018-07-05] MEDS: DIANEAL LOW CALCIUM W/1.5% DEXTROSE IP SCH ×5 (00:15→22:55)
--- NOTE | 2018-07-05 05:24 | Hem/Onc Progress Note ---
Assessment and Plan 1. Left leg deep venous thrombosis. The patient is on heparin drip. The patient is on peritoneal dialysis. The dose of Eliquis or any direct thrombin inhibitors or other anticoagulation monitoring may become challenging. I will discuss with other team members regarding the dosage. The question arises if a lower dose of Eliquis is sufficient. 2. MCV elevated. We will investigate. 3. Elevated D-dimers. 4. History of renal failure, on peritoneal dialysis. 5. History of hypertension. She was hypotensive at admission. 6. History of diabetes. 7. I will follow the patient during inpatient stay and then in the clinic setting for anticoagulation management. Option of Coumadin is also available but that would involve monitoring. 07/05 - d/w dr cartagena - pharmacy to help reg NOAC - ? eliquis 2.5 q 12? - Patient Problems (1) DVT (deep venous thrombosis) Current Visit: Yes Status: Acute Qualifiers: DVT location: lower extremity Chronicity: acute Subjective Date of service: 07/05/18 Principal diagnosis: dvt Interval history: pt denies bleeding Objective - Constitutional Vitals: Last Vital Signs Temp 98.3 F 07/05/18 04:00 Pulse 91 H 07/05/18 04:00 Resp 18 07/05/18 04:00 BP 101/60 07/05/18 04:00 Pulse Ox 95 07/05/18 04:00 Pain Intensity (0-10): denies any pain General appearance: no acute distress Performance status: 3-limited selfcare - EENT Eyes: EOM intact ENT: clear oral mucosa Lymph node exam: negative cervical - Neck Neck: normal ROM - Respiratory Respiratory effort: Positive: normal Respiratory: bilateral: CTA - Cardiovascular Heart Sounds: Present: S1 & S2 Extremity abnormal: edema - Gastrointestinal General gastrointestinal: Present: soft, non-tender Rectal Exam: deferred - Genitourinary Female genitourinary: Present: deferred - Integumentary Integumentary: warm - Musculoskeletal Musculoskeletal: strength equal bilaterally - Neurologic Neurologic: moves all extremities - Labs Lab Results: Laboratory Results - last 24 hr 07/04/18 07/04/18 07/04/18 05:22 05:22 05:22 WBC 13.1 H RBC 3.79 Hgb 13.1 Hct 39.5 MCV 104 H MCH 35 H MCHC 33 RDW 14.7 Plt Count 139 L Lymph % (Auto) 5.0 L [place] % (Auto) 5.1 Eos % (Auto) 0.8 Baso % (Auto) 1.4 Lymph # 0.7 L [place] # 0.7 Eos # 0.1 Baso # 0.2 H Seg Neutrophils % 87.7 H Seg Neutrophils # 11.5 H Heparin Anti-Xa Level 1.31 H Sodium 132 L Potassium 3.1 L Chloride 92.4 L Carbon Dioxide 25 Anion Gap 18 BUN 30 H Creatinine 7.4 H Estimated GFR 7 BUN/Creatinine Ratio 4 Glucose 113 H POC Glucose Calcium 7.8 L 07/04/18 07/04/18 07/04/18 12:15 14:59 17:33 WBC RBC Hgb Hct MCV MCH MCHC RDW Plt Count Lymph % (Auto) [place] % (Auto) Eos % (Auto) Baso % (Auto) Lymph # [place] # Eos # Baso # Seg Neutrophils % Seg Neutrophils # Heparin Anti-Xa Level 1.70 H Sodium Potassium Chloride Carbon Dioxide Anion Gap BUN Creatinine Estimated GFR BUN/Creatinine Ratio Glucose POC Glucose 200 H 98 Calcium 07/04/18 20:56 WBC RBC Hgb Hct MCV MCH MCHC RDW Plt Count Lymph % (Auto) [place] % (Auto) Eos % (Auto) Baso % (Auto) Lymph # [place] # Eos # Baso # Seg Neutrophils % Seg Neutrophils # Heparin Anti-Xa Level Sodium Potassium Chloride Carbon Dioxide Anion Gap BUN Creatinine Estimated GFR BUN/Creatinine Ratio Glucose POC Glucose 133 H Calcium Medications & Allergies - Medications Allergies/Adverse Reactions: Allergies No Known Allergies Allergy (Verified 08/18/14 08:52) Home Medications: Home Medications Medication Instructions Recorded Confirmed Last Taken Type Aspirin [Aspirin BABY CHEW TAB] 81 mg PO QDAY #30 08/19/14 06/29/18 06/23/15 Rx Calcitriol [Rocaltrol] 0.5 mcg PO QDAY 06/29/18 06/29/18 Unknown History Potassium Chloride [Klor-Con M20] 20 meq PO DAILY 06/29/18 06/29/18 Unknown History Sevelamer Carbonate 1,600 mg PO TID 06/29/18 06/29/18 Unknown History Simvastatin [Zocor] 20 mg PO DAILY 06/29/18 06/29/18 Unknown History Active Medications: Generic Name Dose Route Start Last Admin Trade Name Freq PRN Reason Stop Dose Admin Apixaban 5 mg 07/04/18 16:00 07/04/18 22:51 Eliquis PO Not Given Q12HR [facility] Protocol Aspirin 81 mg 06/29/18 13:00 07/04/18 09:56 Baby Aspirin PO 81 mg QDAY DIANE Administration Atorvastatin Calcium 40 mg 06/29/18 22:00 07/04/18 22:53 Lipitor PO 40 mg QHS DIANE Administration Calcitriol 0.5 mcg 06/29/18 13:00 07/04/18 09:56 Rocaltrol PO 0.5 mcg QDAY DIANE Administration Docusate Sodium 100 mg 07/02/18 10:00 07/04/18 22:53 Colace PO 100 mg BID DIANE Administration Famotidine 10 mg 06/30/18 10:00 07/04/18 09:56 Pepcid PO 10 mg QDAY DIANE Administration Insulin Human Lispro 0 unit 06/29/18 22:00 07/04/18 22:53 Humalog SUB-Q Not Given ACHS [facility] Protocol Lidocaine 1 each 06/29/18 13:00 07/04/18 09:56 Lidoderm 5% TD 1 each QDAY DIANE Administration Midodrine 10 mg 07/01/18 14:00 07/04/18 21:01 Proamatine PO 10 mg TID DIANE Administration Peritoneal Dialysis Solution 2,000 ml 07/01/18 10:00 07/05/18 00:15 Dianeal Low Calcium W/1.5% Dextrose IP 2,000 ml QID DIANE Administration Polyethylene Glycol 17 gm 07/02/18 10:00 07/04/18 09:56 Miralax 3350 PO 17 gm QDAY DIANE Administration Sevelamer Carbonate 1,600 mg 06/29/18 12:00 07/04/18 19:00 Renvela PO Not Given TIDWM [facility]
[2018-07-05 06:56] LABS: Basophils % (Auto) 0.4 % (0.0-1.8); Eosinophils # (Auto) 0.1 K/mm3 (0.0-0.4); Eosinophils % (Auto) 0.8 % (0.0-4.3); Hematocrit 36.4 % (30.3-42.9); Hemoglobin 12.3 gm/dl (10.1-14.3); Lymphocytes # (Auto) 0.7 K/mm3 (1.2-5.4); Lymphocytes % (Auto) 7.8 % (13.4-35.0); Mean Corpuscular HGB Conc 34 % (30-34); Mean Corpuscular Volume 104 fl (79-97); Monocytes # (Auto) 0.5 K/mm3 (0.0-0.8); Monocytes % (Auto) 5.8 % (0.0-7.3); Platelet Count 167 K/mm3 (140-440); Red Blood Count 3.51 M/mm3 (3.65-5.03); Red Cell Distribution Width 14.6 % (13.2-15.2)
[2018-07-05 07:25] LABS: Calcium 7.9 mg/dL (8.4-10.2)
[2018-07-05] MEDS: PROAMATINE PO SCH ×3 (08:00→20:53)
[2018-07-05] MEDS: COLACE PO SCH ×2 (10:01→22:42)
[2018-07-05] MEDS: PEPCID PO SCH (10:02)
[2018-07-05] MEDS: BABY ASPIRIN PO SCH (10:02)
[2018-07-05] MEDS: ELIQUIS PO SCH ×2 (10:02→22:41)
[2018-07-05] MEDS: ROCALTROL PO SCH (10:02)
[2018-07-05] MEDS: MIRALAX 3350 PO SCH (10:02)
[2018-07-05] MEDS: HumaLOG SUB-Q SCH ×4 (10:05→22:48)
[2018-07-05] MEDS: RENVELA PO SCH ×3 (10:14→17:17)
[2018-07-05] MEDS: LIDODERM 5% TD SCH (10:19)
--- NOTE | 2018-07-05 10:23 | Progress Note ---
Assessment and Plan Severe sepsis with septic shock HLD ESRD on PD Diabetes Elevated troponin/NSTEMI type 2 LLExt DVT Abdominal pain -Bowel regimen, serial abdominal exams - Nephrology for peritoneal dialysis - No infiltrates noted on CTA chest/chest x-ray/VQ scan -Increase activity -On midodrine for blood pressure support -De-escalate antibiotics based on cultures -Continue anticoagulation with Eliquis, monitor for bleeding complications -Influenza and pneumonia vaccination per protocol prior to discharge -Continue all supportive care Continue to monitor closely Subjective Date of service: 07/05/18 Principal diagnosis: abnl trop Interval history: Patient is seen today for: Septic Shock (etiology unclear) with lactic acidosis and hypotension; Hyperlipidemia; ESRD on PD; Diabetes type 2; Elevated troponin/NSTEMI type 2 Seen and examined at bedside; 24hour events reviewed; nursing and respiratory care staff consulted; no adverse overnight events reported to me; resting peacefully in bed; looks and feels better; denies acute chest pains or palpitations; No N/V/F/C; has some lower abdominal pain, episode of fecal incontinence this morning( received a dose of lactulose- possible overflow diarrhea), states she does not have an appetite this morning. Objective Vital Signs - 12hr 07/04/18 07/05/18 07/05/18 23:31 04:00 04:25 Temperature 97.9 F 98.3 F Pulse Rate 94 H 91 H 93 H Respiratory 18 18 Rate Blood Pressure 114/66 Blood Pressure 101/60 [Left] O2 Sat by Pulse 91 95 Oximetry 07/05/18 08:23 Temperature 98.4 F Pulse Rate 85 Respiratory 20 Rate Blood Pressure 122/57 Blood Pressure [Left] O2 Sat by Pulse 98 Oximetry Constitutional: no acute distress, alert Eyes: non-icteric ENT: oropharynx moist, other (mallampati 3) Neck: supple, no lymphadenopathy, no JVD, other (large neck circumference) Effort: normal Ascultation: Bilateral: diminished breath sounds, rhonchi (scant in bases) Percussion: Bilateral: not dull Cardiovascular: regular rate and rhythm, other (No R/M) Gastrointestinal: normoactive bowel sounds, soft, non-distended, other (No HSM, PD cathetr, clean dry site, mild lower abdominal tenderness, no rebound) Integumentary: normal Extremities: no cyanosis, no edema, pulses normal, no ischemia or petechiae Neurologic: normal mental status, non-focal exam (grossly), pupils equal and round, motor strength normal and Psychiatric: mood appropriate, affect normal CBC and BMP: 07/05/18 06:17 07/05/18 06:17 ABG, PT/INR, D-dimer: PT/INR, D-dimer PT 13.6 Sec. (12.2-14.9) 07/03/18 12:39 INR 0.98 (0.87-1.13) 07/03/18 12:39 D-Dimer > 61746 ng/mlDDU (0-234) H 06/28/18 22:26 Abnormal lab findings: Abnormal Labs 06/28/18 06/28/18 06/28/18 10:38 20:54 20:54 WBC 24.8 H RBC Hgb 16.6 H Hct 50.3 H MCV 107 H MCH 35 H RDW 15.6 H Plt Count Lymph % (Auto) Lymph # Baso # Seg Neutrophils % Seg Neuts % (Manual) 95.0 H Lymphocytes % (Manual) 3.0 L Seg Neutrophils # Seg Neutrophils # Man 23.6 H Lymphocytes # (Manual) 0.7 L D-Dimer Heparin Anti-Xa Level Sodium 131 L Potassium Chloride 89.6 L Carbon Dioxide 19 L BUN 29 H Creatinine 9.3 H Glucose 174 H POC Glucose Lactic Acid Calcium ALT 5 L Troponin T 0.073 H C-Reactive Protein Albumin 3.2 L Triglycerides 194 H HDL Cholesterol 68 H 06/28/18 06/29/18 06/29/18 22:26 12:18 13:30 WBC RBC Hgb Hct MCV MCH RDW Plt Count Lymph % (Auto) Lymph # Baso # Seg Neutrophils % Seg Neuts % (Manual) Lymphocytes % (Manual) Seg Neutrophils # Seg Neutrophils # Man Lymphocytes # (Manual) D-Dimer > 02580 H Heparin Anti-Xa Level Sodium Potassium Chloride Carbon Dioxide BUN Creatinine Glucose POC Glucose 168 H Lactic Acid Calcium ALT Troponin T 0.073 H C-Reactive Protein Albumin Triglycerides HDL Cholesterol 06/29/18 06/29/18 06/29/18 13:30 14:11 16:36 WBC 19.8 H RBC Hgb 14.7 H Hct 45.4 H MCV 108 H MCH 35 H RDW 15.9 H Plt Count Lymph % (Auto) Lymph # Baso # Seg Neutrophils % Seg Neuts % (Manual) Lymphocytes % (Manual) Seg Neutrophils # Seg Neutrophils # Man Lymphocytes # (Manual) D-Dimer Heparin Anti-Xa Level Sodium 133 L Potassium Chloride 91.7 L Carbon Dioxide 20 L BUN 33 H Creatinine 9.9 H Glucose 196 H POC Glucose 165 H Lactic Acid Calcium ALT Troponin T C-Reactive Protein Albumin Triglycerides HDL Cholesterol 06/29/18 06/29/18 06/30/18 20:37 22:01 04:49 WBC 14.8 H RBC Hgb Hct MCV 106 H MCH 35 H RDW 15.5 H Plt Count Lymph % (Auto) Lymph # Baso # Seg Neutrophils % Seg Neuts % (Manual) 90.0 H Lymphocytes % (Manual) 5.0 L Seg Neutrophils # Seg Neutrophils # Man 13.3 H Lymphocytes # (Manual) 0.7 L D-Dimer Heparin Anti-Xa Level Sodium Potassium Chloride Carbon Dioxide BUN Creatinine Glucose POC Glucose 202 H Lactic Acid Calcium ALT Troponin T 0.077 H C-Reactive Protein Albumin Triglycerides HDL Cholesterol 06/30/18 06/30/18 06/30/18 04:49 08:27 12:17 WBC RBC Hgb Hct MCV MCH RDW Plt Count Lymph % (Auto) Lymph # Baso # Seg Neutrophils % Seg Neuts % (Manual) Lymphocytes % (Manual) Seg Neutrophils # Seg Neutrophils # Man Lymphocytes # (Manual) D-Dimer Heparin Anti-Xa Level Sodium 134 L Potassium 3.5 L Chloride 94.7 L Carbon Dioxide BUN 30 H Creatinine 8.8 H Glucose 182 H POC Glucose 170 H 145 H Lactic Acid Calcium 7.9 L ALT Troponin T C-Reactive Protein Albumin Triglycerides HDL Cholesterol 06/30/18 06/30/18 07/01/18 16:44 22:06 07:21 WBC 11.8 H RBC 3.32 L Hgb Hct MCV 105 H MCH 35 H RDW 15.5 H Plt Count 125 L Lymph % (Auto) Lymph # Baso # Seg Neutrophils % Seg Neuts % (Manual) Lymphocytes % (Manual) Seg Neutrophils # Seg Neutrophils # Man Lymphocytes # (Manual) D-Dimer Heparin Anti-Xa Level Sodium Potassium Chloride Carbon Dioxide BUN Creatinine Glucose POC Glucose 155 H 174 H Lactic Acid Calcium ALT Troponin T C-Reactive Protein Albumin Triglycerides HDL Cholesterol 07/01/18 07/01/18 07/01/18 07:21 08:22 11:38 WBC RBC Hgb Hct MCV MCH RDW Plt Count Lymph % (Auto) Lymph # Baso # Seg Neutrophils % Seg Neuts % (Manual) Lymphocytes % (Manual) Seg Neutrophils # Seg Neutrophils # Man Lymphocytes # (Manual) D-Dimer Heparin Anti-Xa Level Sodium 134 L Potassium Chloride 95.9 L Carbon Dioxide BUN 31 H Creatinine 8.4 H Glucose 151 H POC Glucose 117 H 166 H Lactic Acid Calcium 7.8 L ALT Troponin T C-Reactive Protein Albumin Triglycerides HDL Cholesterol 07/01/18 07/01/18 07/01/18 13:32 13:32 16:27 WBC RBC Hgb Hct MCV MCH RDW Plt Count Lymph % (Auto) Lymph # Baso # Seg Neutrophils % Seg Neuts % (Manual) Lymphocytes % (Manual) Seg Neutrophils # Seg Neutrophils # Man Lymphocytes # (Manual) D-Dimer Heparin Anti-Xa Level Sodium Potassium Chloride Carbon Dioxide BUN Creatinine Glucose POC Glucose 149 H Lactic Acid 2.20 H* Calcium ALT Troponin T C-Reactive Protein 7.40 H Albumin Triglycerides HDL Cholesterol 07/01/18 07/01/18 07/02/18 19:35 21:36 05:22 WBC RBC Hgb Hct MCV MCH RDW Plt Count Lymph % (Auto) Lymph # Baso # Seg Neutrophils % Seg Neuts % (Manual) Lymphocytes % (Manual) Seg Neutrophils # Seg Neutrophils # Man Lymphocytes # (Manual) D-Dimer Heparin Anti-Xa Level Sodium Potassium Chloride Carbon Dioxide BUN Creatinine Glucose POC Glucose 129 H Lactic Acid 2.60 H* 2.20 H* Calcium ALT Troponin T C-Reactive Protein Albumin Triglycerides HDL Cholesterol 07/02/18 07/02/18 07/02/18 05:22 05:22 07:11 WBC 12.6 H RBC 3.51 L Hgb Hct MCV 105 H MCH 35 H RDW Plt Count 132 L Lymph % (Auto) Lymph # Baso # Seg Neutrophils % Seg Neuts % (Manual) 92.0 H Lymphocytes % (Manual) 2.0 L Seg Neutrophils # Seg Neutrophils # Man 11.6 H Lymphocytes # (Manual) 0.3 L D-Dimer Heparin Anti-Xa Level Sodium 131 L Potassium 3.3 L Chloride 93.1 L Carbon Dioxide BUN 31 H Creatinine 7.5 H Glucose 228 H POC Glucose 215 H Lactic Acid Calcium 7.7 L ALT Troponin T C-Reactive Protein Albumin Triglycerides HDL Cholesterol 07/02/18 07/02/18 07/03/18 15:35 21:56 10:56 WBC RBC Hgb Hct MCV MCH RDW Plt Count Lymph % (Auto) Lymph # Baso # Seg Neutrophils % Seg Neuts % (Manual) Lymphocytes % (Manual) Seg Neutrophils # Seg Neutrophils # Man Lymphocytes # (Manual) D-Dimer Heparin Anti-Xa Level Sodium 130 L Potassium Chloride 91.6 L Carbon Dioxide BUN 33 H Creatinine 7.8 H Glucose POC Glucose 123 H 135 H Lactic Acid Calcium 7.7 L ALT Troponin T C-Reactive Protein Albumin Triglycerides HDL Cholesterol 07/03/18 07/03/18 07/03/18 11:00 21:03 22:06 WBC 11.9 H RBC 3.59 L Hgb Hct MCV 103 H MCH 35 H RDW Plt Count Lymph % (Auto) Lymph # Baso # Seg Neutrophils % Seg Neuts % (Manual) 94.0 H Lymphocytes % (Manual) 5.0 L Seg Neutrophils # Seg Neutrophils # Man 11.2 H Lymphocytes # (Manual) 0.6 L D-Dimer Heparin Anti-Xa Level 0.28 L Sodium Potassium Chloride Carbon Dioxide BUN Creatinine Glucose POC Glucose 177 H Lactic Acid Calcium ALT Troponin T C-Reactive Protein Albumin Triglycerides HDL Cholesterol 07/04/18 07/04/18 07/04/18 01:08 05:22 05:22 WBC 13.1 H RBC Hgb Hct MCV 104 H MCH 35 H RDW Plt Count 139 L Lymph % (Auto) 5.0 L Lymph # 0.7 L Baso # 0.2 H Seg Neutrophils % 87.7 H Seg Neuts % (Manual) Lymphocytes % (Manual) Seg Neutrophils # 11.5 H Seg Neutrophils # Man Lymphocytes # (Manual) D-Dimer Heparin Anti-Xa Level Sodium 132 L Potassium 3.1 L Chloride 92.4 L Carbon Dioxide BUN 30 H Creatinine 7.4 H Glucose 113 H POC Glucose 106 H Lactic Acid Calcium 7.8 L ALT Troponin T C-Reactive Protein Albumin Triglycerides HDL Cholesterol 07/04/18 07/04/18 07/04/18 05:22 12:15 14:59 WBC RBC Hgb Hct MCV MCH RDW Plt Count Lymph % (Auto) Lymph # Baso # Seg Neutrophils % Seg Neuts % (Manual) Lymphocytes % (Manual) Seg Neutrophils # Seg Neutrophils # Man Lymphocytes # (Manual) D-Dimer Heparin Anti-Xa Level 1.31 H 1.70 H Sodium Potassium Chloride Carbon Dioxide BUN Creatinine Glucose POC Glucose 200 H Lactic Acid Calcium ALT Troponin T C-Reactive Protein Albumin Triglycerides HDL Cholesterol 07/04/18 07/05/18 07/05/18 20:56 06:17 06:17 WBC RBC 3.51 L Hgb Hct MCV 104 H MCH 35 H RDW Plt Count Lymph % (Auto) 7.8 L Lymph # 0.7 L Baso # Seg Neutrophils % 85.2 H Seg Neuts % (Manual) Lymphocytes % (Manual) Seg Neutrophils # Seg Neutrophils # Man Lymphocytes # (Manual) D-Dimer Heparin Anti-Xa Level Sodium 132 L Potassium 3.1 L Chloride 92.7 L Carbon Dioxide BUN 29 H Creatinine 7.3 H Glucose 115 H POC Glucose 133 H Lactic Acid Calcium 7.9 L ALT Troponin T C-Reactive Protein Albumin Triglycerides HDL Cholesterol Allied health notes reviewed: nursing
--- NOTE | 2018-07-05 13:46 | Progress Note ---
Assessment and Plan Assessment and plan: Patient is a 67-year-old female past medical history of end-stage renal disease on peritoneal dialysis, hypertension hyperlipidemia, diabetes mellitus type 2 on diet control, s/p right hip and left knee replacement presented to ER by EMS after having a fall around 9 AM in the morning but she had no loss of consciousness or hit her head. she was sitting on bed and accidentaly "slid to ground". She was unable to get up from the bed as she was feeling very weak in her legs. Her family called emergency services to break into her house around 5pm. She was then brought to the ER for further evaluation and management . She noted to have highly elevated d-dimer, elevated white count. In the ED, patient was hypotensive w/ WBC 24.8. CTA chest was unremarkable. V/Q scan was also low prob PE. She denies fever, chills, PD fluid has been clear. She was placed on Levophed, given IV Rocephin and then called for admission for further evaluation and management. Cx negative to date, weaned off levophed, s/p PD by renal. /SIRS without organ dysfunction - suspected sepsis on admission - Continue empiric antibiotics, follow blood culture report - No infiltrates noted on CTA chest/chest x-ray/VQ scan, patient does not make urine /Hypotension vs septic shock - Patient was placed on levophed, now weaned off - ordered steroid x1 dose, cont midodrine for now /HLD, on statin /ESRD on PD, Nephrology following /Diabetes type 2, diet controlled, SSI PLACED as needed ACHS /Elevated troponin/NSTEMI type 2 - Ordered serial troponin, CPK level - Cardiology following - Stress test negative DVT left lower ext. Was Started Heparin drip consulted Hematology and she was seen by Dr. Funez. I discussed with him amd he recommends Eliquis. Started Eliquis. Discontinued heparin Debility PT evaluation done patient unable to stand, and she lives alone. discussed with case management May need acute rehab History Interval history: Generalized weakness Newly diagnosed DVT left leg Hospitalist Physical - Physical exam Narrative exam: EN: Not in acute distress, lying in bed, obese HEENT: Normocephalic, atraumatic, Neck: supple, No JVD heart: S1 and S2 reg, no murmurs, rubs or gallop Lungs: clear to auscultation bilateral, wheeze Abd:soft, non tender, non distended, PD catheter. normal bowel sounds Ext: Edema both lower ext, no cyanosis Neuro:Awake,alert,oriented X 3, no focal signs, moves all ext Psych: normal mood - Constitutional Vitals: Temp Pulse Resp BP Pulse Ox 97.9 F 82 18 118/54 93 07/05/18 12:43 07/05/18 12:43 07/05/18 12:43 07/05/18 12:43 07/05/18 12:43 General appearance: Present: no acute distress, well-nourished Results - Labs CBC & Chem 7: 07/05/18 06:17 07/05/18 06:17 Labs: Laboratory Last Values WBC 9.1 K/mm3 (4.5-11.0) 07/05/18 06:17 RBC 3.51 M/mm3 (3.65-5.03) L 07/05/18 06:17 Hgb 12.3 gm/dl (10.1-14.3) 07/05/18 06:17 Hct 36.4 % (30.3-42.9) 07/05/18 06:17 MCV 104 fl (79-97) H 07/05/18 06:17 MCH 35 pg (28-32) H 07/05/18 06:17 MCHC 34 % (30-34) 07/05/18 06:17 RDW 14.6 % (13.2-15.2) 07/05/18 06:17 Plt Count 167 K/mm3 (140-440) 07/05/18 06:17 Lymph % (Auto) 7.8 % (13.4-35.0) L 07/05/18 06:17 [place] % (Auto) 5.8 % (0.0-7.3) 07/05/18 06:17 Eos % (Auto) 0.8 % (0.0-4.3) 07/05/18 06:17 Baso % (Auto) 0.4 % (0.0-1.8) 07/05/18 06:17 Lymph # 0.7 K/mm3 (1.2-5.4) L 07/05/18 06:17 [place] # 0.5 K/mm3 (0.0-0.8) 07/05/18 06:17 Eos # 0.1 K/mm3 (0.0-0.4) 07/05/18 06:17 Baso # 0.0 K/mm3 (0.0-0.1) 07/05/18 06:17 Add Manual Diff Complete 07/03/18 11:00 Total Counted 100 07/03/18 11:00 Seg Neutrophils % 85.2 % (40.0-70.0) H 07/05/18 06:17 Seg Neuts % (Manual) 94.0 % (40.0-70.0) H 07/03/18 11:00 Band Neutrophils % 0 % 07/03/18 11:00 Lymphocytes % (Manual) 5.0 % (13.4-35.0) L 07/03/18 11:00 Reactive Lymphs % (Man) 0 % 07/03/18 11:00 Monocytes % (Manual) 1.0 % (0.0-7.3) 07/03/18 11:00 Eosinophils % (Manual) 0 % (0.0-4.3) 07/03/18 11:00 Basophils % (Manual) 0 % (0.0-1.8) 07/03/18 11:00 Metamyelocytes % 0 % 07/03/18 11:00 Myelocytes % 0 % 07/03/18 11:00 Promyelocytes % 0 % 07/03/18 11:00 Blast Cells % 0 % 07/03/18 11:00 Nucleated RBC % Not Reportable 07/03/18 11:00 Seg Neutrophils # 7.7 K/mm3 (1.8-7.7) 07/05/18 06:17 Seg Neutrophils # Man 11.2 K/mm3 (1.8-7.7) H 07/03/18 11:00 Band Neutrophils # 0.0 K/mm3 07/03/18 11:00 Lymphocytes # (Manual) 0.6 K/mm3 (1.2-5.4) L 07/03/18 11:00 Abs React Lymphs (Man) 0.0 K/mm3 07/03/18 11:00 Monocytes # (Manual) 0.1 K/mm3 (0.0-0.8) 07/03/18 11:00 Eosinophils # (Manual) 0.0 K/mm3 (0.0-0.4) 07/03/18 11:00 Basophils # (Manual) 0.0 K/mm3 (0.0-0.1) 07/03/18 11:00 Metamyelocytes # 0.0 K/mm3 07/03/18 11:00 Myelocytes # 0.0 K/mm3 07/03/18 11:00 Promyelocytes # 0.0 K/mm3 07/03/18 11:00 Blast Cells # 0.0 K/mm3 07/03/18 11:00 WBC Morphology Not Reportable 07/03/18 11:00 Hypersegmented Neuts Not Reportable 07/03/18 11:00 Hyposegmented Neuts Not Reportable 07/03/18 11:00 Hypogranular Neuts Not Reportable 07/03/18 11:00 Smudge Cells Not Reportable 07/03/18 11:00 Toxic Granulation Not Reportable 07/03/18 11:00 Toxic Vacuolation Not Reportable 07/03/18 11:00 Dohle Bodies Not Reportable 07/03/18 11:00 Pelger-Huet Anomaly Not Reportable 07/03/18 11:00 Nomi Rods Not Reportable 07/03/18 11:00 Platelet Estimate Consistent w auto 07/03/18 11:00 Clumped Platelets Not Reportable 07/03/18 11:00 Plt Clumps, EDTA Not Reportable 07/03/18 11:00 Large Platelets Not Reportable 07/03/18 11:00 Giant Platelets Not Reportable 07/03/18 11:00 Platelet Satelliting Not Reportable 07/03/18 11:00 Plt Morphology Comment Not Reportable 07/03/18 11:00 RBC Morphology Not Reportable 07/03/18 11:00 Dimorphic RBCs Not Reportable 07/03/18 11:00 Polychromasia Not Reportable 07/03/18 11:00 Hypochromasia Not Reportable 07/03/18 11:00 Poikilocytosis Not Reportable 07/03/18 11:00 Anisocytosis Few 07/03/18 11:00 Microcytosis Not Reportable 07/03/18 11:00 Macrocytosis Not Reportable 07/03/18 11:00 Spherocytes Not Reportable 07/03/18 11:00 Pappenheimer Bodies Not Reportable 07/03/18 11:00 Sickle Cells Not Reportable 07/03/18 11:00 Target Cells Not Reportable 07/03/18 11:00 Tear Drop Cells Not Reportable 07/03/18 11:00 Ovalocytes Not Reportable 07/03/18 11:00 Helmet Cells Not Reportable 07/03/18 11:00 [place] Bodies Not Reportable 07/03/18 11:00 [place] Rings Not Reportable 07/03/18 11:00 [place] Cells Not Reportable 07/03/18 11:00 Bite Cells Not Reportable 07/03/18 11:00 Crenated Cell Not Reportable 07/03/18 11:00 Elliptocytes Not Reportable 07/03/18 11:00 Acanthocytes (Spur) Not Reportable 07/03/18 11:00 Rouleaux Not Reportable 07/03/18 11:00 Hemoglobin C Crystals Not Reportable 07/03/18 11:00 Schistocytes Not Reportable 07/03/18 11:00 Malaria parasites Not Reportable 07/03/18 11:00 Navneet Bodies Not Reportable 07/03/18 11:00 Hem Pathologist Commnt No 07/03/18 11:00 PT 13.6 Sec. (12.2-14.9) 07/03/18 12:39 INR 0.98 (0.87-1.13) 07/03/18 12:39 APTT 34.1 Sec. (24.2-36.6) 07/03/18 12:39 D-Dimer > 12379 ng/mlDDU (0-234) H 06/28/18 22:26 Heparin Anti-Xa Level 1.70 U.I./ml (0.3-0.7) H 07/04/18 14:59 Sodium 132 mmol/L (137-145) L 07/05/18 06:17 Potassium 3.1 mmol/L (3.6-5.0) L 07/05/18 06:17 Chloride 92.7 mmol/L (98-107) L 07/05/18 06:17 Carbon Dioxide 25 mmol/L (22-30) 07/05/18 06:17 Anion Gap 17 mmol/L 07/05/18 06:17 BUN 29 mg/dL (7-17) H 07/05/18 06:17 Creatinine 7.3 mg/dL (0.7-1.2) H 07/05/18 06:17 Estimated GFR 7 ml/min 07/05/18 06:17 BUN/Creatinine Ratio 4 % 07/05/18 06:17 Glucose 115 mg/dL (65-100) H 07/05/18 06:17 POC Glucose 105 (70-105) 07/05/18 12:44 Lactic Acid 2.20 mmol/L (0.7-2.0) H* 07/02/18 05:22 Calcium 7.9 mg/dL (8.4-10.2) L 07/05/18 06:17 Total Bilirubin 0.40 mg/dL (0.1-1.2) 06/28/18 20:54 AST 25 units/L (5-40) 06/28/18 20:54 ALT 5 units/L (7-56) L 06/28/18 20:54 Alkaline Phosphatase 88 units/L (35-129) 06/28/18 20:54 Total Creatine Kinase 118 units/L (30-135) 06/29/18 20:37 Troponin T 0.077 ng/mL (0.00-0.029) H 06/29/18 20:37 C-Reactive Protein 7.40 mg/dL (0.00-1.30) H 07/01/18 13:32 Total Protein 7.4 g/dL (6.3-8.2) 06/28/18 20:54 Albumin 3.2 g/dL (3.9-5) L 06/28/18 20:54 Albumin/Globulin Ratio 0.8 % 06/28/18 20:54 Triglycerides 194 mg/dL (2-149) H 06/28/18 10:38 Cholesterol 167 mg/dL (50-199) 06/28/18 10:38 LDL Cholesterol Direct 61 mg/dL (50-130) 06/28/18 10:38 HDL Cholesterol 68 mg/dL (40-59) H 06/28/18 10:38 Cholesterol/HDL Ratio 2.45 % 06/28/18 10:38 Active Medications - Current Medications Current Medications: Generic Name Dose Route Start Last Admin Trade Name Freq PRN Reason Stop Dose Admin Apixaban 5 mg 07/04/18 16:00 07/05/18 10:02 Eliquis PO 5 mg Q12HR DIANE Administration Protocol Aspirin 81 mg 06/29/18 13:00 07/05/18 10:02 Baby Aspirin PO 81 mg QDAY DIANE Administration Atorvastatin Calcium 40 mg 06/29/18 22:00 07/04/18 22:53 Lipitor PO 40 mg QHS DIANE Administration Calcitriol 0.5 mcg 06/29/18 13:00 07/05/18 10:02 Rocaltrol PO 0.5 mcg QDAY DIANE Administration Docusate Sodium 100 mg 07/02/18 10:00 07/05/18 10:01 Colace PO 100 mg BID DIANE Administration Famotidine 10 mg 06/30/18 10:00 07/05/18 10:02 Pepcid PO 10 mg QDAY DIANE Administration Insulin Human Lispro 0 unit 06/29/18 22:00 07/05/18 10:05 Humalog SUB-Q Not Given ACHS DIANE Protocol Lidocaine 1 each 06/29/18 13:00 07/05/18 10:19 Lidoderm 5% TD 1 each QDAY DIANE Administration Midodrine 10 mg 07/01/18 14:00 07/04/18 21:01 Proamatine PO 10 mg TID DIANE Administration Peritoneal Dialysis Solution 2,000 ml 07/01/18 10:00 07/05/18 10:20 Dianeal Low Calcium W/1.5% Dextrose IP 2,000 ml QID DIANE Administration Polyethylene Glycol 17 gm 07/02/18 10:00 07/05/18 10:02 Miralax 3350 PO 17 gm QDAY DIANE Administration Potassium Chloride 20 meq 07/05/18 14:00 K-Dur PO 07/05/18 14:01 ONCE ONE Sevelamer Carbonate 1,600 mg 06/29/18 12:00 07/05/18 10:14 Renvela PO 1,600 mg TIDWM DIANE Administration
[2018-07-05] MEDS ORDERED: K-DUR PO ONE ×2 (14:00→17:11)
--- NOTE | 2018-07-05 15:33 | Progress Note ---
Assessment and Plan - Patient Problems (1) ESRD on peritoneal dialysis Current Visit: Yes Status: Chronic Plan to address problem: ESRD on peritoneal dialysis : - Electrolytes reviewed. -continue current prescription (2) HTN (hypertension) Current Visit: Yes Status: Acute Plan to address problem: Hypertension uncontrolled Continue medications (3) Diabetes Current Visit: Yes Status: Chronic Plan to address problem: Diabetes mellitus type 2 with complications Monitor fingersticks (4) Hypokalemia Current Visit: Yes Status: Acute Plan to address problem: Hypokalemia will give 20 meq of KCl today Subjective Principal diagnosis: End stage renal disease. Interval history: 67-year-old lady with end-stage renal disease on peritoneal dialysis for the past 2 years found unresponsive nephrology following for end-stage renal disease management She is getting peritoneal dialysis Discussed with nurse ensure dressing is applied appropriately to peritoneal dialysis catheter site Denies any shortness of breath or having no swelling Objective - Vital Signs Vital signs: Vital Signs - 12hr 07/05/18 07/05/18 07/05/18 04:00 04:25 08:23 Temperature 98.3 F 98.4 F Pulse Rate 91 H 93 H 85 Respiratory 18 20 Rate Respiratory Rate [Left Knee ] Blood Pressure 122/57 Blood Pressure 101/60 [Left] O2 Sat by Pulse 95 98 Oximetry 07/05/18 07/05/18 10:00 12:43 Temperature 97.9 F Pulse Rate 86 82 Respiratory 20 18 Rate Respiratory 20 Rate [Left Knee ] Blood Pressure 118/54 Blood Pressure [Left] O2 Sat by Pulse 93 Oximetry - General Appearance General appearance: obese, frail, anxious EENT: ATNC, PERRL, mucous membranes dry, hearing intact, vision intact Neck: no JVD Respiratory: Present: Clear to Ascultation Cardiology: regular, S1S2 Gastrointestinal: normal, normoactive bowel sounds Integumentary: no rash Neurologic: alert and oriented x3 Musculoskeletal: deferred Psychiatric: mood/affect appropriate - Lab 07/05/18 06:17 07/05/18 06:17 Most recent lab results Calcium 7.9 mg/dL (8.4-10.2) L 07/05/18 06:17 Medications & Allergies - Medications Allergies/Adverse Reactions: Allergies No Known Allergies Allergy (Verified 08/18/14 08:52) Home Medications: Home Medications Medication Instructions Recorded Confirmed Last Taken Type Aspirin [Aspirin BABY CHEW TAB] 81 mg PO QDAY #30 05/13/15 03/23/19 03/16/16 Rx Calcitriol [Rocaltrol] 0.5 mcg PO QDAY 06/29/18 06/29/18 Unknown History Potassium Chloride [Klor-Con M20] 20 meq PO DAILY 06/29/18 06/29/18 Unknown History Sevelamer Carbonate 1,600 mg PO TID 06/29/18 06/29/18 Unknown History Simvastatin [Zocor] 20 mg PO DAILY 06/29/18 06/29/18 Unknown History Active Medications: Generic Name Dose Route Start Last Admin Trade Name Freq PRN Reason Stop Dose Admin Apixaban 5 mg 07/04/18 16:00 07/05/18 10:02 Eliquis PO 5 mg Q12HR DIANE Administration Protocol Aspirin 81 mg 06/29/18 13:00 07/05/18 10:02 Baby Aspirin PO 81 mg QDAY DIANE Administration Atorvastatin Calcium 40 mg 06/29/18 22:00 07/04/18 22:53 Lipitor PO 40 mg QHS DIANE Administration Calcitriol 0.5 mcg 06/29/18 13:00 07/05/18 10:02 Rocaltrol PO 0.5 mcg QDAY DIANE Administration Docusate Sodium 100 mg 07/02/18 10:00 07/05/18 10:01 Colace PO 100 mg BID DIANE Administration Famotidine 10 mg 06/30/18 10:00 07/05/18 10:02 Pepcid PO 10 mg QDAY DIANE Administration Insulin Human Lispro 0 unit 06/29/18 22:00 07/05/18 10:05 Humalog SUB-Q Not Given ACHS DIANE Protocol Lidocaine 1 each 06/29/18 13:00 07/05/18 10:19 Lidoderm 5% TD 1 each QDAY DIANE Administration Midodrine 10 mg 07/01/18 14:00 07/04/18 21:01 Proamatine PO 10 mg TID DIANE Administration Peritoneal Dialysis Solution 2,000 ml 07/01/18 10:00 07/05/18 10:20 Dianeal Low Calcium W/1.5% Dextrose IP 2,000 ml QID DIANE Administration Polyethylene Glycol 17 gm 07/02/18 10:00 07/05/18 10:02 Miralax 3350 PO 17 gm QDAY DIANE Administration Sevelamer Carbonate 1,600 mg 06/29/18 12:00 07/05/18 10:14 Renvela PO 1,600 mg TIDWM DIANE Administration
[2018-07-06 07:29] LABS: Hematocrit 36.1 % (30.3-42.9); Mean Corpuscular HGB Conc 33 % (30-34); Mean Corpuscular Volume 104 fl (79-97); Platelet Count 181 K/mm3 (140-440); Red Blood Count 3.47 M/mm3 (3.65-5.03); Red Cell Distribution Width 14.5 % (13.2-15.2)
[2018-07-06] MEDS: HumaLOG SUB-Q SCH ×4 (07:30→22:10)
[2018-07-06 07:51] LABS: Calcium 7.8 mg/dL (8.4-10.2)
[2018-07-06 09:22] LABS: Band Neutrophils # (Manual) 0.2 K/mm3; Basophils % (Manual) 0 % (0.0-1.8); Eosinophils % (Manual) 0 % (0.0-4.3); Platelet Estimate Cons; RBC Morphology Normal; Total Cells Counted 100
--- NOTE | 2018-07-06 10:02 | Progress Note ---
Assessment and Plan Assessment and plan: Patient is a 67-year-old female past medical history of end-stage renal disease on peritoneal dialysis, hypertension hyperlipidemia, diabetes mellitus type 2 on diet control, s/p right hip and left knee replacement presented to ER by EMS after having a fall around 9 AM in the morning but she had no loss of consciousness or hit her head. she was sitting on bed and accidentaly "slid to ground". She was unable to get up from the bed as she was feeling very weak in her legs. Her family called emergency services to break into her house around 5pm. She was then brought to the ER for further evaluation and management . She noted to have highly elevated d-dimer, elevated white count. In the ED, patient was hypotensive w/ WBC 24.8. CTA chest was unremarkable. V/Q scan was also low prob PE. She denies fever, chills, PD fluid has been clear. She was placed on Levophed, given IV Rocephin and then called for admission for further evaluation and management. Cx negative to date, weaned off levophed, s/p PD by renal. /SIRS without organ dysfunction - suspected sepsis on admission - Continue empiric antibiotics, follow blood culture report - No infiltrates noted on CTA chest/chest x-ray/VQ scan, patient does not make urine /Hypotension vs septic shock - Patient was placed on levophed, now weaned off - ordered steroid x1 dose, cont midodrine for now /HLD, on statin /ESRD on PD, Nephrology following /Diabetes type 2, diet controlled, SSI PLACED as needed ACHS /Elevated troponin/NSTEMI type 2 - Ordered serial troponin, CPK level - Cardiology following - Stress test negative DVT left lower ext. Was Started Heparin drip consulted Hematology and she was seen by Dr. Funez. I discussed with him amd he recommends Eliquis. Started Eliquis. Discontinued heparin Debility PT evaluation done patient unable to stand, and she lives alone. discussed with case management May need acute rehab History Interval history: Generalized weakness Unable to stand up because of weakness Newly diagnosed DVT left leg Hospitalist Physical - Physical exam Narrative exam: EN: Not in acute distress, lying in bed, obese HEENT: Normocephalic, atraumatic, Neck: supple, No JVD heart: S1 and S2 reg, no murmurs, rubs or gallop Lungs: clear to auscultation bilateral, wheeze Abd:soft, non tender, non distended, PD catheter. normal bowel sounds Ext: Edema both lower ext, no cyanosis Neuro:Awake,alert,oriented X 3, no focal signs, moves all ext Psych: normal mood - Constitutional Vitals: Temp Pulse Resp BP Pulse Ox 98.8 F 83 16 113/61 97 07/06/18 08:13 07/06/18 08:13 07/06/18 08:13 07/06/18 08:13 07/06/18 08:13 General appearance: Present: no acute distress, well-nourished Results - Labs CBC & Chem 7: 07/06/18 06:53 07/06/18 06:53 Labs: Laboratory Last Values WBC 9.2 K/mm3 (4.5-11.0) 07/06/18 06:53 RBC 3.47 M/mm3 (3.65-5.03) L 07/06/18 06:53 Hgb 12.0 gm/dl (10.1-14.3) 07/06/18 06:53 Hct 36.1 % (30.3-42.9) 07/06/18 06:53 MCV 104 fl (79-97) H 07/06/18 06:53 MCH 35 pg (28-32) H 07/06/18 06:53 MCHC 33 % (30-34) 07/06/18 06:53 RDW 14.5 % (13.2-15.2) 07/06/18 06:53 Plt Count 181 K/mm3 (140-440) 07/06/18 06:53 Lymph % (Auto) 7.8 % (13.4-35.0) L 07/05/18 06:17 [place] % (Auto) 5.8 % (0.0-7.3) 07/05/18 06:17 Eos % (Auto) 0.8 % (0.0-4.3) 07/05/18 06:17 Baso % (Auto) 0.4 % (0.0-1.8) 07/05/18 06:17 Lymph # 0.7 K/mm3 (1.2-5.4) L 07/05/18 06:17 [place] # 0.5 K/mm3 (0.0-0.8) 07/05/18 06:17 Eos # 0.1 K/mm3 (0.0-0.4) 07/05/18 06:17 Baso # 0.0 K/mm3 (0.0-0.1) 07/05/18 06:17 Add Manual Diff Complete 07/06/18 06:53 Total Counted 100 07/06/18 06:53 Seg Neutrophils % 85.2 % (40.0-70.0) H 07/05/18 06:17 Seg Neuts % (Manual) 93.0 % (40.0-70.0) H 07/06/18 06:53 Band Neutrophils % 2.0 % 07/06/18 06:53 Lymphocytes % (Manual) 2.0 % (13.4-35.0) L 07/06/18 06:53 Reactive Lymphs % (Man) 0 % 07/06/18 06:53 Monocytes % (Manual) 3.0 % (0.0-7.3) 07/06/18 06:53 Eosinophils % (Manual) 0 % (0.0-4.3) 07/06/18 06:53 Basophils % (Manual) 0 % (0.0-1.8) 07/06/18 06:53 Metamyelocytes % 0 % 07/06/18 06:53 Myelocytes % 0 % 07/06/18 06:53 Promyelocytes % 0 % 07/06/18 06:53 Blast Cells % 0 % 07/06/18 06:53 Nucleated RBC % Not Reportable 07/06/18 06:53 Seg Neutrophils # 7.7 K/mm3 (1.8-7.7) 07/05/18 06:17 Seg Neutrophils # Man 8.6 K/mm3 (1.8-7.7) H 07/06/18 06:53 Band Neutrophils # 0.2 K/mm3 07/06/18 06:53 Lymphocytes # (Manual) 0.2 K/mm3 (1.2-5.4) L 07/06/18 06:53 Abs React Lymphs (Man) 0.0 K/mm3 07/06/18 06:53 Monocytes # (Manual) 0.3 K/mm3 (0.0-0.8) 07/06/18 06:53 Eosinophils # (Manual) 0.0 K/mm3 (0.0-0.4) 07/06/18 06:53 Basophils # (Manual) 0.0 K/mm3 (0.0-0.1) 07/06/18 06:53 Metamyelocytes # 0.0 K/mm3 07/06/18 06:53 Myelocytes # 0.0 K/mm3 07/06/18 06:53 Promyelocytes # 0.0 K/mm3 07/06/18 06:53 Blast Cells # 0.0 K/mm3 07/06/18 06:53 WBC Morphology Not Reportable 07/06/18 06:53 Hypersegmented Neuts Not Reportable 07/06/18 06:53 Hyposegmented Neuts Not Reportable 07/06/18 06:53 Hypogranular Neuts Not Reportable 07/06/18 06:53 Smudge Cells Not Reportable 07/06/18 06:53 Toxic Granulation Not Reportable 07/06/18 06:53 Toxic Vacuolation Not Reportable 07/06/18 06:53 Dohle Bodies Not Reportable 07/06/18 06:53 Pelger-Huet Anomaly Not Reportable 07/06/18 06:53 Nomi Rods Not Reportable 07/06/18 06:53 Platelet Estimate Cons 07/06/18 06:53 Clumped Platelets Not Reportable 07/06/18 06:53 Plt Clumps, EDTA Not Reportable 07/06/18 06:53 Large Platelets Not Reportable 07/06/18 06:53 Giant Platelets Not Reportable 07/06/18 06:53 Platelet Satelliting Not Reportable 07/06/18 06:53 Plt Morphology Comment Not Reportable 07/06/18 06:53 RBC Morphology Normal 07/06/18 06:53 Dimorphic RBCs Not Reportable 07/06/18 06:53 Polychromasia Not Reportable 07/06/18 06:53 Hypochromasia Not Reportable 07/06/18 06:53 Poikilocytosis Not Reportable 07/06/18 06:53 Anisocytosis Not Reportable 07/06/18 06:53 Microcytosis Not Reportable 07/06/18 06:53 Macrocytosis Not Reportable 07/06/18 06:53 Spherocytes Not Reportable 07/06/18 06:53 Pappenheimer Bodies Not Reportable 07/06/18 06:53 Sickle Cells Not Reportable 07/06/18 06:53 Target Cells Not Reportable 07/06/18 06:53 Tear Drop Cells Not Reportable 07/06/18 06:53 Ovalocytes Not Reportable 07/06/18 06:53 Helmet Cells Not Reportable 07/06/18 06:53 Barnhart-Boley Bodies Not Reportable 07/06/18 06:53 [place] Rings Not Reportable 07/06/18 06:53 Edgar Cells Not Reportable 07/06/18 06:53 Bite Cells Not Reportable 07/06/18 06:53 Crenated Cell Not Reportable 07/06/18 06:53 Elliptocytes Not Reportable 07/06/18 06:53 Acanthocytes (Spur) Not Reportable 07/06/18 06:53 Rouleaux Not Reportable 07/06/18 06:53 Hemoglobin C Crystals Not Reportable 07/06/18 06:53 Schistocytes Not Reportable 07/06/18 06:53 Malaria parasites Not Reportable 07/06/18 06:53 Navneet Bodies Not Reportable 07/06/18 06:53 Hem Pathologist Commnt No 07/06/18 06:53 PT 13.6 Sec. (12.2-14.9) 07/03/18 12:39 INR 0.98 (0.87-1.13) 07/03/18 12:39 APTT 34.1 Sec. (24.2-36.6) 07/03/18 12:39 D-Dimer > 30764 ng/mlDDU (0-234) H 06/28/18 22:26 Heparin Anti-Xa Level 1.70 U.I./ml (0.3-0.7) H 07/04/18 14:59 Sodium 132 mmol/L (137-145) L 07/06/18 06:53 Potassium 3.2 mmol/L (3.6-5.0) L 07/06/18 06:53 Chloride 94.5 mmol/L (98-107) L 07/06/18 06:53 Carbon Dioxide 25 mmol/L (22-30) 07/06/18 06:53 Anion Gap 16 mmol/L 07/06/18 06:53 BUN 32 mg/dL (7-17) H 07/06/18 06:53 Creatinine 8.7 mg/dL (0.7-1.2) H 07/06/18 06:53 Estimated GFR 5 ml/min 07/06/18 06:53 BUN/Creatinine Ratio 4 % 07/06/18 06:53 Glucose 106 mg/dL (65-100) H 07/06/18 06:53 POC Glucose 112 (70-105) H 07/05/18 23:47 Lactic Acid 2.20 mmol/L (0.7-2.0) H* 07/02/18 05:22 Calcium 7.8 mg/dL (8.4-10.2) L 07/06/18 06:53 Total Bilirubin 0.40 mg/dL (0.1-1.2) 06/28/18 20:54 AST 25 units/L (5-40) 06/28/18 20:54 ALT 5 units/L (7-56) L 06/28/18 20:54 Alkaline Phosphatase 88 units/L (35-129) 06/28/18 20:54 Total Creatine Kinase 118 units/L (30-135) 06/29/18 20:37 Troponin T 0.077 ng/mL (0.00-0.029) H 06/29/18 20:37 C-Reactive Protein 7.40 mg/dL (0.00-1.30) H 07/01/18 13:32 Total Protein 7.4 g/dL (6.3-8.2) 06/28/18 20:54 Albumin 3.2 g/dL (3.9-5) L 06/28/18 20:54 Albumin/Globulin Ratio 0.8 % 06/28/18 20:54 Triglycerides 194 mg/dL (2-149) H 06/28/18 10:38 Cholesterol 167 mg/dL (50-199) 06/28/18 10:38 LDL Cholesterol Direct 61 mg/dL (50-130) 06/28/18 10:38 HDL Cholesterol 68 mg/dL (40-59) H 06/28/18 10:38 Cholesterol/HDL Ratio 2.45 % 06/28/18 10:38 Active Medications - Current Medications Current Medications: Generic Name Dose Route Start Last Admin Trade Name Freq PRN Reason Stop Dose Admin Apixaban 5 mg 07/04/18 16:00 07/05/18 22:41 Eliquis PO 5 mg Q12HR DIANE Administration Protocol Aspirin 81 mg 06/29/18 13:00 07/05/18 10:02 Baby Aspirin PO 81 mg QDAY DIANE Administration Atorvastatin Calcium 40 mg 06/29/18 22:00 07/05/18 22:41 Lipitor PO 40 mg QHS DIANE Administration Calcitriol 0.5 mcg 06/29/18 13:00 07/05/18 10:02 Rocaltrol PO 0.5 mcg QDAY DIANE Administration Docusate Sodium 100 mg 07/02/18 10:00 07/05/18 22:42 Colace PO Not Given BID DIANE Famotidine 10 mg 06/30/18 10:00 07/05/18 10:02 Pepcid PO 10 mg QDAY DIANE Administration Insulin Human Lispro 0 unit 06/29/18 22:00 07/05/18 22:48 Humalog SUB-Q Not Given ACHS [facility] Protocol Lidocaine 1 each 06/29/18 13:00 07/05/18 10:19 Lidoderm 5% TD 1 each QDAY DIANE Administration Midodrine 10 mg 07/01/18 14:00 07/05/18 20:53 Proamatine PO 10 mg TID DIANE Administration Peritoneal Dialysis Solution 2,000 ml 07/01/18 10:00 07/05/18 22:55 Dianeal Low Calcium W/1.5% Dextrose IP 2,000 ml QID DIANE Administration Polyethylene Glycol 17 gm 07/02/18 10:00 07/05/18 10:02 Miralax 3350 PO 17 gm QDAY DIANE Administration Sevelamer Carbonate 1,600 mg 06/29/18 12:00 07/05/18 17:17 Renvela PO 1,600 mg TIDWM DIANE Administration Nutrition/Malnutrition Assess - Dietary Evaluation Nutrition/Malnutrition Findings: Nutrition Notes Start: 07/05/18 14:49 Freq: Status: Active Protocol: Document 07/05/18 14:49 RM (Rec: 07/05/18 14:51 RM [id number]) Nutrition Notes Need for Assessment generated from: LOS Initial or Follow up Assessment Current Diagnosis Diabetes Other Pertinent Diagnosis ESRD on PD, Possible sepsis Current Diet Renal,Cardiac Labs/Tests Reviewed Pertinent Medications Reviewed Height 5 ft 6 in Weight 94.4 kg [place] Body Weight (kg) 59.09 BMI 33.5 Subjective/Other Information Screened for LOS. CAPD in progress at time of visit. Recorded PO intake 58% X 2 days. Percent of energy/protein needs met: 77%/49% Burn Absent Trauma Absent #1 Nutrition Diagnosis Inadequate oral intake Etiology ESRD on PD As Evidenced by Signs and Symptoms recorded PO intake 58% X 2 days Is patient on ventilator? No Is Patient Ambulatory and/or Out of Bed Yes REE-([place]-St. Jeor-ambulatory/OOB) [ 1931.475 [id number]] Kcal/Kg value to use for calculation 17 Approximate Energy Requirements Using 1605 kcal/Kg Calculation Used for Recommendations Kcal/kg Additional Notes Protein Needs: 92-100g (1.2-1. 3g/kg, 77kg adjBW) Fluid Needs: 1 ml/kcal Nutrition Intervention Change Diet Order: Continue current Add Supplement/Snack (indicate name/kcal Nepro 1 daily /protein ) Provides kCal: 425 Provides Protein (gm) 19 Goal #1 Meet at least 75% of calorie and protein needs via PO and ONS intakes Anticipated Discharge Needs: Renal diet Follow-Up By: 07/09/18 Additional Comments Follow for PO and ONS intakes
[2018-07-06] MEDS: DIANEAL LOW CALCIUM W/1.5% DEXTROSE IP SCH ×3 (11:02→18:18)
--- NOTE | 2018-07-06 11:43 | Progress Note ---
Assessment and Plan Acute DVT Hypotension vs septic shock HLD, on statin ESRD on PD Diabetes type 2 Elevated troponin/NSTEMI type 2 - Blood Pressure better - continue PD per nephrology prescription - prn BIPAP - continue glycemic control with accuchecks and SSI for target BG 140 - 180 mg/dl - stopped stress dose steroids - contine empiric AB's and de-escalate based on clinical and microbiologic data - continue chronic med's including statin therapy - NSTEMI per cardiology - GI & VTE prophylaxis - continue other care per attending / other consultants .... re-evaluate in am & prn Subjective Date of service: 07/06/18 Principal diagnosis: Septic Shock; ESRD on PD; Diabetes type 2; Elevated troponin/NSTEMI type 2 Interval history: Patient is seen today for: Septic Shock (etiology unclear) with lactic acidosis and hypotension; Hyperlipidemia; ESRD on PD; Diabetes type 2; Elevated troponin/ NSTEMI type 2 Seen and examined at bedside; 24hour events reviewed; nursing and respiratory care staff consulted; no adverse overnight events reported to me; resting peacefully in bed; denies acute chest pains or palpitations; no gross bleeding Objective Vital Signs - 12hr 07/05/18 07/06/18 07/06/18 23:45 03:53 04:25 Temperature 98.7 F 98.8 F Pulse Rate 94 H 98 H 91 H Respiratory 20 20 Rate Blood Pressure 91/45 100/52 O2 Sat by Pulse 94 91 Oximetry 07/06/18 08:13 Temperature 98.8 F Pulse Rate 83 Respiratory 16 Rate Blood Pressure 113/61 O2 Sat by Pulse 97 Oximetry Constitutional: no acute distress, alert Eyes: non-icteric ENT: oropharynx moist, other (mallampati 3) Neck: supple, no lymphadenopathy, no JVD, other (large neck circumference) Effort: normal Ascultation: Bilateral: diminished breath sounds, rhonchi (scant in bases) Percussion: Bilateral: not dull Cardiovascular: regular rate and rhythm, other (No R/M) Gastrointestinal: normoactive bowel sounds, soft, non-distended, other (No HSM, PD cathetr, clean dry site, mild lower abdominal tenderness, no rebound) Integumentary: normal Extremities: no cyanosis, no edema, pulses normal, no ischemia or petechiae Neurologic: normal mental status, non-focal exam (grossly), pupils equal and round, motor strength normal and Psychiatric: mood appropriate, affect normal CBC and BMP: 07/18/18 00:56 07/18/18 04:23 ABG, PT/INR, D-dimer: PT/INR, D-dimer PT 13.6 Sec. (12.2-14.9) 07/03/18 12:39 INR 0.98 (0.87-1.13) 07/03/18 12:39 D-Dimer > 19614 ng/mlDDU (0-234) H 06/28/18 22:26 Abnormal lab findings: Abnormal Labs 06/28/18 06/28/18 06/28/18 10:38 20:54 20:54 WBC 24.8 H RBC Hgb 16.6 H Hct 50.3 H MCV 107 H MCH 35 H RDW 15.6 H Plt Count Lymph % (Auto) Lymph # Baso # Seg Neutrophils % Seg Neuts % (Manual) 95.0 H Lymphocytes % (Manual) 3.0 L Seg Neutrophils # Seg Neutrophils # Man 23.6 H Lymphocytes # (Manual) 0.7 L D-Dimer Heparin Anti-Xa Level Sodium 131 L Potassium Chloride 89.6 L Carbon Dioxide 19 L BUN 29 H Creatinine 9.3 H Glucose 174 H POC Glucose Lactic Acid Calcium ALT 5 L Troponin T 0.073 H C-Reactive Protein Albumin 3.2 L Triglycerides 194 H HDL Cholesterol 68 H 06/28/18 06/29/18 06/29/18 22:26 12:18 13:30 WBC RBC Hgb Hct MCV MCH RDW Plt Count Lymph % (Auto) Lymph # Baso # Seg Neutrophils % Seg Neuts % (Manual) Lymphocytes % (Manual) Seg Neutrophils # Seg Neutrophils # Man Lymphocytes # (Manual) D-Dimer > 02368 H Heparin Anti-Xa Level Sodium Potassium Chloride Carbon Dioxide BUN Creatinine Glucose POC Glucose 168 H Lactic Acid Calcium ALT Troponin T 0.073 H C-Reactive Protein Albumin Triglycerides HDL Cholesterol 06/29/18 06/29/18 06/29/18 13:30 14:11 16:36 WBC 19.8 H RBC Hgb 14.7 H Hct 45.4 H MCV 108 H MCH 35 H RDW 15.9 H Plt Count Lymph % (Auto) Lymph # Baso # Seg Neutrophils % Seg Neuts % (Manual) Lymphocytes % (Manual) Seg Neutrophils # Seg Neutrophils # Man Lymphocytes # (Manual) D-Dimer Heparin Anti-Xa Level Sodium 133 L Potassium Chloride 91.7 L Carbon Dioxide 20 L BUN 33 H Creatinine 9.9 H Glucose 196 H POC Glucose 165 H Lactic Acid Calcium ALT Troponin T C-Reactive Protein Albumin Triglycerides HDL Cholesterol 06/29/18 06/29/18 06/30/18 20:37 22:01 04:49 WBC 14.8 H RBC Hgb Hct MCV 106 H MCH 35 H RDW 15.5 H Plt Count Lymph % (Auto) Lymph # Baso # Seg Neutrophils % Seg Neuts % (Manual) 90.0 H Lymphocytes % (Manual) 5.0 L Seg Neutrophils # Seg Neutrophils # Man 13.3 H Lymphocytes # (Manual) 0.7 L D-Dimer Heparin Anti-Xa Level Sodium Potassium Chloride Carbon Dioxide BUN Creatinine Glucose POC Glucose 202 H Lactic Acid Calcium ALT Troponin T 0.077 H C-Reactive Protein Albumin Triglycerides HDL Cholesterol 06/30/18 06/30/18 06/30/18 04:49 08:27 12:17 WBC RBC Hgb Hct MCV MCH RDW Plt Count Lymph % (Auto) Lymph # Baso # Seg Neutrophils % Seg Neuts % (Manual) Lymphocytes % (Manual) Seg Neutrophils # Seg Neutrophils # Man Lymphocytes # (Manual) D-Dimer Heparin Anti-Xa Level Sodium 134 L Potassium 3.5 L Chloride 94.7 L Carbon Dioxide BUN 30 H Creatinine 8.8 H Glucose 182 H POC Glucose 170 H 145 H Lactic Acid Calcium 7.9 L ALT Troponin T C-Reactive Protein Albumin Triglycerides HDL Cholesterol 06/30/18 06/30/18 07/01/18 16:44 22:06 07:21 WBC 11.8 H RBC 3.32 L Hgb Hct MCV 105 H MCH 35 H RDW 15.5 H Plt Count 125 L Lymph % (Auto) Lymph # Baso # Seg Neutrophils % Seg Neuts % (Manual) Lymphocytes % (Manual) Seg Neutrophils # Seg Neutrophils # Man Lymphocytes # (Manual) D-Dimer Heparin Anti-Xa Level Sodium Potassium Chloride Carbon Dioxide BUN Creatinine Glucose POC Glucose 155 H 174 H Lactic Acid Calcium ALT Troponin T C-Reactive Protein Albumin Triglycerides HDL Cholesterol 07/01/18 07/01/18 07/01/18 07:21 08:22 11:38 WBC RBC Hgb Hct MCV MCH RDW Plt Count Lymph % (Auto) Lymph # Baso # Seg Neutrophils % Seg Neuts % (Manual) Lymphocytes % (Manual) Seg Neutrophils # Seg Neutrophils # Man Lymphocytes # (Manual) D-Dimer Heparin Anti-Xa Level Sodium 134 L Potassium Chloride 95.9 L Carbon Dioxide BUN 31 H Creatinine 8.4 H Glucose 151 H POC Glucose 117 H 166 H Lactic Acid Calcium 7.8 L ALT Troponin T C-Reactive Protein Albumin Triglycerides HDL Cholesterol 07/01/18 07/01/18 07/01/18 13:32 13:32 16:27 WBC RBC Hgb Hct MCV MCH RDW Plt Count Lymph % (Auto) Lymph # Baso # Seg Neutrophils % Seg Neuts % (Manual) Lymphocytes % (Manual) Seg Neutrophils # Seg Neutrophils # Man Lymphocytes # (Manual) D-Dimer Heparin Anti-Xa Level Sodium Potassium Chloride Carbon Dioxide BUN Creatinine Glucose POC Glucose 149 H Lactic Acid 2.20 H* Calcium ALT Troponin T C-Reactive Protein 7.40 H Albumin Triglycerides HDL Cholesterol 07/01/18 07/01/18 07/02/18 19:35 21:36 05:22 WBC RBC Hgb Hct MCV MCH RDW Plt Count Lymph % (Auto) Lymph # Baso # Seg Neutrophils % Seg Neuts % (Manual) Lymphocytes % (Manual) Seg Neutrophils # Seg Neutrophils # Man Lymphocytes # (Manual) D-Dimer Heparin Anti-Xa Level Sodium Potassium Chloride Carbon Dioxide BUN Creatinine Glucose POC Glucose 129 H Lactic Acid 2.60 H* 2.20 H* Calcium ALT Troponin T C-Reactive Protein Albumin Triglycerides HDL Cholesterol 07/02/18 07/02/18 07/02/18 05:22 05:22 07:11 WBC 12.6 H RBC 3.51 L Hgb Hct MCV 105 H MCH 35 H RDW Plt Count 132 L Lymph % (Auto) Lymph # Baso # Seg Neutrophils % Seg Neuts % (Manual) 92.0 H Lymphocytes % (Manual) 2.0 L Seg Neutrophils # Seg Neutrophils # Man 11.6 H Lymphocytes # (Manual) 0.3 L D-Dimer Heparin Anti-Xa Level Sodium 131 L Potassium 3.3 L Chloride 93.1 L Carbon Dioxide BUN 31 H Creatinine 7.5 H Glucose 228 H POC Glucose 215 H Lactic Acid Calcium 7.7 L ALT Troponin T C-Reactive Protein Albumin Triglycerides HDL Cholesterol 07/02/18 07/02/18 07/03/18 15:35 21:56 10:56 WBC RBC Hgb Hct MCV MCH RDW Plt Count Lymph % (Auto) Lymph # Baso # Seg Neutrophils % Seg Neuts % (Manual) Lymphocytes % (Manual) Seg Neutrophils # Seg Neutrophils # Man Lymphocytes # (Manual) D-Dimer Heparin Anti-Xa Level Sodium 130 L Potassium Chloride 91.6 L Carbon Dioxide BUN 33 H Creatinine 7.8 H Glucose POC Glucose 123 H 135 H Lactic Acid Calcium 7.7 L ALT Troponin T C-Reactive Protein Albumin Triglycerides HDL Cholesterol 07/03/18 07/03/18 07/03/18 11:00 21:03 22:06 WBC 11.9 H RBC 3.59 L Hgb Hct MCV 103 H MCH 35 H RDW Plt Count Lymph % (Auto) Lymph # Baso # Seg Neutrophils % Seg Neuts % (Manual) 94.0 H Lymphocytes % (Manual) 5.0 L Seg Neutrophils # Seg Neutrophils # Man 11.2 H Lymphocytes # (Manual) 0.6 L D-Dimer Heparin Anti-Xa Level 0.28 L Sodium Potassium Chloride Carbon Dioxide BUN Creatinine Glucose POC Glucose 177 H Lactic Acid Calcium ALT Troponin T C-Reactive Protein Albumin Triglycerides HDL Cholesterol 07/04/18 07/04/18 07/04/18 01:08 05:22 05:22 WBC 13.1 H RBC Hgb Hct MCV 104 H MCH 35 H RDW Plt Count 139 L Lymph % (Auto) 5.0 L Lymph # 0.7 L Baso # 0.2 H Seg Neutrophils % 87.7 H Seg Neuts % (Manual) Lymphocytes % (Manual) Seg Neutrophils # 11.5 H Seg Neutrophils # Man Lymphocytes # (Manual) D-Dimer Heparin Anti-Xa Level Sodium 132 L Potassium 3.1 L Chloride 92.4 L Carbon Dioxide BUN 30 H Creatinine 7.4 H Glucose 113 H POC Glucose 106 H Lactic Acid Calcium 7.8 L ALT Troponin T C-Reactive Protein Albumin Triglycerides HDL Cholesterol 07/04/18 07/04/18 07/04/18 05:22 12:15 14:59 WBC RBC Hgb Hct MCV MCH RDW Plt Count Lymph % (Auto) Lymph # Baso # Seg Neutrophils % Seg Neuts % (Manual) Lymphocytes % (Manual) Seg Neutrophils # Seg Neutrophils # Man Lymphocytes # (Manual) D-Dimer Heparin Anti-Xa Level 1.31 H 1.70 H Sodium Potassium Chloride Carbon Dioxide BUN Creatinine Glucose POC Glucose 200 H Lactic Acid Calcium ALT Troponin T C-Reactive Protein Albumin Triglycerides HDL Cholesterol 07/04/18 07/05/18 07/05/18 20:56 06:17 06:17 WBC RBC 3.51 L Hgb Hct MCV 104 H MCH 35 H RDW Plt Count Lymph % (Auto) 7.8 L Lymph # 0.7 L Baso # Seg Neutrophils % 85.2 H Seg Neuts % (Manual) Lymphocytes % (Manual) Seg Neutrophils # Seg Neutrophils # Man Lymphocytes # (Manual) D-Dimer Heparin Anti-Xa Level Sodium 132 L Potassium 3.1 L Chloride 92.7 L Carbon Dioxide BUN 29 H Creatinine 7.3 H Glucose 115 H POC Glucose 133 H Lactic Acid Calcium 7.9 L ALT Troponin T C-Reactive Protein Albumin Triglycerides HDL Cholesterol 07/05/18 07/06/18 07/06/18 23:47 06:53 06:53 WBC RBC 3.47 L Hgb Hct MCV 104 H MCH 35 H RDW Plt Count Lymph % (Auto) Lymph # Baso # Seg Neutrophils % Seg Neuts % (Manual) 93.0 H Lymphocytes % (Manual) 2.0 L Seg Neutrophils # Seg Neutrophils # Man 8.6 H Lymphocytes # (Manual) 0.2 L D-Dimer Heparin Anti-Xa Level Sodium 132 L Potassium 3.2 L Chloride 94.5 L Carbon Dioxide BUN 32 H Creatinine 8.7 H Glucose 106 H POC Glucose 112 H Lactic Acid Calcium 7.8 L ALT Troponin T C-Reactive Protein Albumin Triglycerides HDL Cholesterol Allied health notes reviewed: nursing
[2018-07-06] MEDS ORDERED: K-DUR PO ONE ×2 (11:56→15:00)
[2018-07-06] MEDS: PROAMATINE PO SCH ×3 (11:57→21:25)
[2018-07-06] MEDS: COLACE PO SCH ×2 (11:59→21:27)
[2018-07-06] MEDS: BABY ASPIRIN PO SCH (11:59)
[2018-07-06] MEDS: ELIQUIS PO SCH ×2 (11:59→21:25)
[2018-07-06] MEDS: PEPCID PO SCH (11:59)
[2018-07-06] MEDS: RENVELA PO SCH ×3 (12:00→17:00)
[2018-07-06] MEDS: MIRALAX 3350 PO SCH (12:01)
[2018-07-06] MEDS: ROCALTROL PO SCH (12:01)
[2018-07-06] MEDS: LIDODERM 5% TD SCH (12:01)
--- NOTE | 2018-07-06 13:57 | Progress Note ---
Assessment and Plan - Patient Problems (1) ESRD on peritoneal dialysis Current Visit: Yes Status: Chronic Plan to address problem: ESRD on peritoneal dialysis : - Electrolytes reviewed. -continue current prescription (2) HTN (hypertension) Current Visit: Yes Status: Acute Plan to address problem: Hypertension uncontrolled Continue medications (3) Diabetes Current Visit: Yes Status: Chronic Plan to address problem: Diabetes mellitus type 2 with complications Monitor fingersticks (4) Hypokalemia Current Visit: Yes Status: Acute Plan to address problem: Hypokalemia will repeat 20 meq of KCl today Subjective Principal diagnosis: dvt Interval history: 67-year-old lady with end-stage renal disease on peritoneal dialysis for the past 2 years found unresponsive nephrology following for end-stage renal disease management She is getting peritoneal dialysis Discussed with nurse ensure complete draining of abdomen Denies any shortness of breath or swelling Objective - Vital Signs Vital signs: Vital Signs - 12hr 07/06/18 07/06/18 07/06/18 03:53 04:25 08:13 Temperature 98.8 F 98.8 F Pulse Rate 98 H 91 H 83 Respiratory 20 16 Rate Blood Pressure 100/52 113/61 O2 Sat by Pulse 91 97 Oximetry 07/06/18 10:00 Temperature Pulse Rate Respiratory Rate Blood Pressure O2 Sat by Pulse 95 Oximetry - General Appearance General appearance: well-developed, well-nourished EENT: ATNC, PERRL, mucous membranes moist Neck: no JVD Respiratory: Present: Clear to Ascultation Cardiology: regular, S1S2 Gastrointestinal: normal, normoactive bowel sounds Integumentary: no rash Neurologic: no focal deficit, alert and oriented x3 Psychiatric: mood/affect appropriate - Lab 07/06/18 06:53 07/06/18 06:53 Most recent lab results Calcium 7.8 mg/dL (8.4-10.2) L 07/06/18 06:53 Medications & Allergies - Medications Allergies/Adverse Reactions: Allergies No Known Allergies Allergy (Verified 08/18/14 08:52) Home Medications: Home Medications Medication Instructions Recorded Confirmed Last Taken Type Aspirin [Aspirin BABY CHEW TAB] 81 mg PO QDAY #30 08/19/14 06/29/18 06/23/15 Rx Calcitriol [Rocaltrol] 0.5 mcg PO QDAY 06/29/18 06/29/18 Unknown History Potassium Chloride [Klor-Con M20] 20 meq PO DAILY 06/29/18 06/29/18 Unknown History Sevelamer Carbonate 1,600 mg PO TID 06/29/18 06/29/18 Unknown History Simvastatin [Zocor] 20 mg PO DAILY 06/29/18 06/29/18 Unknown History Active Medications: Generic Name Dose Route Start Last Admin Trade Name Bhupendra PRN Reason Stop Dose Admin Apixaban 5 mg 07/04/18 16:00 07/06/18 11:59 Eliquis PO 5 mg Q12HR DIANE Administration Protocol Aspirin 81 mg 06/29/18 13:00 07/06/18 11:59 Baby Aspirin PO 81 mg QDAY DIANE Administration Atorvastatin Calcium 40 mg 06/29/18 22:00 07/05/18 22:41 Lipitor PO 40 mg QHS DIANE Administration Calcitriol 0.5 mcg 06/29/18 13:00 07/06/18 12:01 Rocaltrol PO 0.5 mcg QDAY DIANE Administration Docusate Sodium 100 mg 07/02/18 10:00 07/06/18 11:59 Colace PO 100 mg BID DIANE Administration Famotidine 10 mg 06/30/18 10:00 07/06/18 11:59 Pepcid PO 10 mg QDAY DIANE Administration Insulin Human Lispro 0 unit 06/29/18 22:00 07/06/18 12:02 Humalog SUB-Q Not Given ACHS [facility] Protocol Lidocaine 1 each 06/29/18 13:00 07/06/18 12:01 Lidoderm 5% TD 1 each QDAY DIANE Administration Midodrine 10 mg 07/01/18 14:00 07/06/18 11:57 Proamatine PO 10 mg TID DIANE Administration Peritoneal Dialysis Solution 2,000 ml 07/01/18 10:00 07/06/18 11:02 Dianeal Low Calcium W/1.5% Dextrose IP 2,000 ml QID DIANE Administration Polyethylene Glycol 17 gm 07/02/18 10:00 07/06/18 12:01 Miralax 3350 PO Not Given QDAY DIANE Sevelamer Carbonate 1,600 mg 06/29/18 12:00 07/06/18 12:00 Renvela PO 1,600 mg TIDWM DIANE Administration
--- NOTE | 2018-07-06 19:10 | Hem/Onc Progress Note ---
Assessment and Plan 1. Left leg deep venous thrombosis. The patient was on heparin drip. The patient is on peritoneal dialysis. The dose of Eliquis or any direct thrombin inhibitors or other anticoagulation monitoring may become challenging. I will discuss with other team members regarding the dosage. The question arises if a lower dose of Eliquis is sufficient. 2. MCV elevated. We will investigate. 3. Elevated D-dimers. 4. History of renal failure, on peritoneal dialysis. 5. History of hypertension. She was hypotensive at admission. 6. History of diabetes. 7. I will follow the patient during inpatient stay and then in the clinic setting for anticoagulation management. Option of Coumadin is also available but that would involve monitoring. 07/05 - d/w dr cartagena - pharmacy to help reg NOAC - ? eliquis 2.5 q 12? 07/06 - pharmacy has placed pt on 5 mg q 12 - Patient Problems (1) DVT (deep venous thrombosis) Current Visit: Yes Status: Acute Qualifiers: DVT location: lower extremity Chronicity: acute Subjective Date of service: 07/06/18 Principal diagnosis: dvt Interval history: gets PD Objective - Constitutional Vitals: Last Vital Signs Temp 98.9 F 07/06/18 16:20 Pulse 80 07/06/18 16:20 Resp 16 07/06/18 16:20 BP 138/81 07/06/18 16:20 Pulse Ox 96 07/06/18 16:20 Pain Intensity (0-10): denies any pain General appearance: no acute distress Performance status: 3-limited selfcare - EENT Eyes: EOM intact ENT: clear oral mucosa Lymph node exam: negative cervical - Neck Neck: normal ROM - Respiratory Respiratory effort: Positive: normal Respiratory: bilateral: CTA - Cardiovascular Heart Sounds: Present: S1 & S2 Extremity abnormal: edema - Gastrointestinal General gastrointestinal: Present: soft, non-tender Rectal Exam: deferred - Genitourinary Female genitourinary: Present: deferred - Integumentary Integumentary: rash - Musculoskeletal Musculoskeletal: strength equal bilaterally - Neurologic Neurologic: moves all extremities - Labs Lab Results: Laboratory Results - last 24 hr 07/05/18 07/05/18 07/06/18 22:52 23:47 06:53 WBC 9.2 RBC 3.47 L Hgb 12.0 Hct 36.1 MCV 104 H MCH 35 H MCHC 33 RDW 14.5 Plt Count 181 Add Manual Diff Complete Total Counted 100 Seg Neuts % (Manual) 93.0 H Band Neutrophils % 2.0 Lymphocytes % (Manual) 2.0 L Reactive Lymphs % (Man) 0 Monocytes % (Manual) 3.0 Eosinophils % (Manual) 0 Basophils % (Manual) 0 Metamyelocytes % 0 Myelocytes % 0 Promyelocytes % 0 Blast Cells % 0 Nucleated RBC % Not Reportable Seg Neutrophils # Man 8.6 H Band Neutrophils # 0.2 Lymphocytes # (Manual) 0.2 L Abs React Lymphs (Man) 0.0 Monocytes # (Manual) 0.3 Eosinophils # (Manual) 0.0 Basophils # (Manual) 0.0 Metamyelocytes # 0.0 Myelocytes # 0.0 Promyelocytes # 0.0 Blast Cells # 0.0 WBC Morphology Not Reportable Hypersegmented Neuts Not Reportable Hyposegmented Neuts Not Reportable Hypogranular Neuts Not Reportable Smudge Cells Not Reportable Toxic Granulation Not Reportable Toxic Vacuolation Not Reportable Dohle Bodies Not Reportable Pelger-Huet Anomaly Not Reportable Nomi Rods Not Reportable Platelet Estimate Cons Clumped Platelets Not Reportable Plt Clumps, EDTA Not Reportable Large Platelets Not Reportable Giant Platelets Not Reportable Platelet Satelliting Not Reportable Plt Morphology Comment Not Reportable RBC Morphology Normal Dimorphic RBCs Not Reportable Polychromasia Not Reportable Hypochromasia Not Reportable Poikilocytosis Not Reportable Anisocytosis Not Reportable Microcytosis Not Reportable Macrocytosis Not Reportable Spherocytes Not Reportable Pappenheimer Bodies Not Reportable Sickle Cells Not Reportable Target Cells Not Reportable Tear Drop Cells Not Reportable Ovalocytes Not Reportable Helmet Cells Not Reportable [place] Bodies Not Reportable [place] Rings Not Reportable [place] Cells Not Reportable Bite Cells Not Reportable Crenated Cell Not Reportable Elliptocytes Not Reportable Acanthocytes (Spur) Not Reportable Rouleaux Not Reportable Hemoglobin C Crystals Not Reportable Schistocytes Not Reportable Malaria parasites Not Reportable Navneet Bodies Not Reportable Hem Pathologist Commnt No Sodium Potassium Chloride Carbon Dioxide Anion Gap BUN Creatinine Estimated GFR BUN/Creatinine Ratio Glucose POC Glucose 105 112 H Calcium 07/06/18 07/06/18 07/06/18 06:53 08:35 12:02 WBC RBC Hgb Hct MCV MCH MCHC RDW Plt Count Add Manual Diff Total Counted Seg Neuts % (Manual) Band Neutrophils % Lymphocytes % (Manual) Reactive Lymphs % (Man) Monocytes % (Manual) Eosinophils % (Manual) Basophils % (Manual) Metamyelocytes % Myelocytes % Promyelocytes % Blast Cells % Nucleated RBC % Seg Neutrophils # Man Band Neutrophils # Lymphocytes # (Manual) Abs React Lymphs (Man) Monocytes # (Manual) Eosinophils # (Manual) Basophils # (Manual) Metamyelocytes # Myelocytes # Promyelocytes # Blast Cells # WBC Morphology Hypersegmented Neuts Hyposegmented Neuts Hypogranular Neuts Smudge Cells Toxic Granulation Toxic Vacuolation Dohle Bodies Pelger-Huet Anomaly Nomi Rods Platelet Estimate Clumped Platelets Plt Clumps, EDTA Large Platelets Giant Platelets Platelet Satelliting Plt Morphology Comment RBC Morphology Dimorphic RBCs Polychromasia Hypochromasia Poikilocytosis Anisocytosis Microcytosis Macrocytosis Spherocytes Pappenheimer Bodies Sickle Cells Target Cells Tear Drop Cells Ovalocytes Helmet Cells [place] Bodies [place] Rings Apex Cells Bite Cells Crenated Cell Elliptocytes Acanthocytes (Spur) Rouleaux Hemoglobin C Crystals Schistocytes Malaria parasites Navneet Bodies Hem Pathologist Commnt Sodium 132 L Potassium 3.2 L Chloride 94.5 L Carbon Dioxide 25 Anion Gap 16 BUN 32 H Creatinine 8.7 H Estimated GFR 5 BUN/Creatinine Ratio 4 Glucose 106 H POC Glucose 96 88 Calcium 7.8 L Medications & Allergies - Medications Allergies/Adverse Reactions: Allergies No Known Allergies Allergy (Verified 08/18/14 08:52) Home Medications: Home Medications Medication Instructions Recorded Confirmed Last Taken Type Aspirin [Aspirin BABY CHEW TAB] 81 mg PO QDAY #30 08/19/14 06/29/18 06/23/15 Rx Calcitriol [Rocaltrol] 0.5 mcg PO QDAY 06/29/18 06/29/18 Unknown History Potassium Chloride [Klor-Con M20] 20 meq PO DAILY 06/29/18 06/29/18 Unknown History Sevelamer Carbonate 1,600 mg PO TID 06/29/18 06/29/18 Unknown History Simvastatin [Zocor] 20 mg PO DAILY 06/29/18 06/29/18 Unknown History Active Medications: Generic Name Dose Route Start Last Admin Trade Name Freq PRN Reason Stop Dose Admin Apixaban 5 mg 07/04/18 16:00 07/06/18 11:59 Eliquis PO 5 mg Q12HR DIANE Administration Protocol Aspirin 81 mg 06/29/18 13:00 07/06/18 11:59 Baby Aspirin PO 81 mg QDAY DIANE Administration Atorvastatin Calcium 40 mg 06/29/18 22:00 07/05/18 22:41 Lipitor PO 40 mg QHS DIANE Administration Calcitriol 0.5 mcg 06/29/18 13:00 07/06/18 12:01 Rocaltrol PO 0.5 mcg QDAY DIANE Administration Docusate Sodium 100 mg 07/02/18 10:00 07/06/18 11:59 Colace PO 100 mg BID DIANE Administration Famotidine 10 mg 06/30/18 10:00 07/06/18 11:59 Pepcid PO 10 mg QDAY DIANE Administration Insulin Human Lispro 0 unit 06/29/18 22:00 07/06/18 12:02 Humalog SUB-Q Not Given ACHS [facility] Protocol Lidocaine 1 each 06/29/18 13:00 07/06/18 12:01 Lidoderm 5% TD 1 each QDAY DIANE Administration Midodrine 10 mg 07/01/18 14:00 07/06/18 14:47 Proamatine PO 10 mg TID DIANE Administration Peritoneal Dialysis Solution 2,000 ml 07/06/18 14:00 Dianeal Low Calcium W/2.5% Dextrose IP 0600,1000,1400,1800 [facility] Polyethylene Glycol 17 gm 07/02/18 10:00 07/06/18 12:01 Miralax 3350 PO Not Given QDAY DIANE Sevelamer Carbonate 1,600 mg 06/29/18 12:00 07/06/18 12:00 Renvela PO 1,600 mg TIDWM DIANE Administration
[2018-07-06] MEDS: DIANEAL LOW CALCIUM W/2.5% DEXTROSE IP SCH (21:23)
[2018-07-07] MEDS: DIANEAL LOW CALCIUM W/2.5% DEXTROSE IP SCH ×4 (05:11→22:58)
[2018-07-07] MEDS: HumaLOG SUB-Q SCH ×4 (07:56→23:28)
[2018-07-07] MEDS: PROAMATINE PO SCH ×3 (09:30→22:56)
[2018-07-07] MEDS: RENVELA PO SCH ×3 (10:09→18:39)
[2018-07-07] MEDS: MIRALAX 3350 PO SCH (10:10)
[2018-07-07 10:25] LABS: Basophils % (Auto) 0.1 % (0.0-1.8); Eosinophils % (Auto) 0.3 % (0.0-4.3); Hematocrit 39.7 % (30.3-42.9); Hemoglobin 13.2 gm/dl (10.1-14.3); Lymphocytes # (Auto) 0.6 K/mm3 (1.2-5.4); Lymphocytes % (Auto) 6.3 % (13.4-35.0); Mean Corpuscular HGB Conc 33 % (30-34); Mean Corpuscular Volume 105 fl (79-97); Monocytes # (Auto) 0.5 K/mm3 (0.0-0.8); Monocytes % (Auto) 5.4 % (0.0-7.3); Platelet Count 209 K/mm3 (140-440); Red Blood Count 3.77 M/mm3 (3.65-5.03); Red Cell Distribution Width 14.8 % (13.2-15.2)
[2018-07-07] MEDS: COLACE PO SCH ×3 (10:56→23:08)
[2018-07-07] MEDS: PEPCID PO SCH (11:00)
[2018-07-07] MEDS: BABY ASPIRIN PO SCH (11:00)
[2018-07-07] MEDS: LIDODERM 5% TD SCH (11:00)
[2018-07-07] MEDS: ELIQUIS PO SCH ×2 (11:00→22:56)
[2018-07-07] MEDS: ROCALTROL PO SCH (12:11)
--- NOTE | 2018-07-07 12:28 | Progress Note ---
Assessment and Plan Assessment and plan: Patient is a 67-year-old female past medical history of end-stage renal disease on peritoneal dialysis, hypertension hyperlipidemia, diabetes mellitus type 2 on diet control, s/p right hip and left knee replacement presented to ER by EMS after having a fall around 9 AM in the morning but she had no loss of consciousness or hit her head. she was sitting on bed and accidentaly "slid to ground". She was unable to get up from the bed as she was feeling very weak in her legs. Her family called emergency services to break into her house around 5pm. She was then brought to the ER for further evaluation and management . She noted to have highly elevated d-dimer, elevated white count. In the ED, patient was hypotensive w/ WBC 24.8. CTA chest was unremarkable. V/Q scan was also low prob PE. She denies fever, chills, PD fluid has been clear. She was placed on Levophed, given IV Rocephin and then called for admission for further evaluation and management. Cx negative to date, weaned off levophed, s/p PD by renal. SIRS without organ dysfunction - suspected sepsis on admission - Continue empiric antibiotics, follow blood culture report - No infiltrates noted on CTA chest/chest x-ray/VQ scan, patient does not make urine Hypotension vs septic shock - Patient was placed on levophed, now weaned off - ordered steroid x1 dose, cont midodrine for now HLD, on statin ESRD on PD, Nephrology following Diabetes type 2, diet controlled, SSI PLACED as needed ACHS Elevated troponin/NSTEMI type 2 - Cardiology following - Stress test negative DVT left lower ext. Was Started Heparin drip consulted Hematology and she was seen by Dr. Funez. I discussed with him amd he recommends Eliquis. Started Eliquis. Discontinued heparin Debility PT evaluation done patient unable to stand, and she lives alone. discussed with case management May need acute rehab History Interval history: Generalized weakness Unable to stand up because of weakness Newly diagnosed DVT left leg Hospitalist Physical - Physical exam Narrative exam: EN: Not in acute distress, lying in bed, obese HEENT: Normocephalic, atraumatic, Neck: supple, No JVD heart: S1 and S2 reg, no murmurs, rubs or gallop Lungs: clear to auscultation bilateral, wheeze Abd:soft, non tender, non distended, PD catheter. normal bowel sounds Ext: Edema both lower ext, no cyanosis Neuro:Awake,alert,oriented X 3, no focal signs, moves all ext Psych: normal mood - Constitutional Vitals: Temp Pulse Resp BP Pulse Ox 98.9 F 90 16 129/75 97 07/07/18 07:56 07/07/18 10:00 07/07/18 07:56 07/07/18 07:56 07/07/18 07:56 General appearance: Present: no acute distress, obese Results - Labs CBC & Chem 7: 07/07/18 09:35 07/07/18 09:35 Labs: Laboratory Last Values WBC 9.3 K/mm3 (4.5-11.0) 07/07/18 09:35 RBC 3.77 M/mm3 (3.65-5.03) 07/07/18 09:35 Hgb 13.2 gm/dl (10.1-14.3) 07/07/18 09:35 Hct 39.7 % (30.3-42.9) 07/07/18 09:35 MCV 105 fl (79-97) H 07/07/18 09:35 MCH 35 pg (28-32) H 07/07/18 09:35 MCHC 33 % (30-34) 07/07/18 09:35 RDW 14.8 % (13.2-15.2) 07/07/18 09:35 Plt Count 209 K/mm3 (140-440) 07/07/18 09:35 Lymph % (Auto) 6.3 % (13.4-35.0) L 07/07/18 09:35 Mower % (Auto) 5.4 % (0.0-7.3) 07/07/18 09:35 Eos % (Auto) 0.3 % (0.0-4.3) 07/07/18 09:35 Baso % (Auto) 0.1 % (0.0-1.8) 07/07/18 09:35 Lymph # 0.6 K/mm3 (1.2-5.4) L 07/07/18 09:35 Mower # 0.5 K/mm3 (0.0-0.8) 07/07/18 09:35 Eos # 0.0 K/mm3 (0.0-0.4) 07/07/18 09:35 Baso # 0.0 K/mm3 (0.0-0.1) 07/07/18 09:35 Add Manual Diff Complete 07/06/18 06:53 Total Counted 100 07/06/18 06:53 Seg Neutrophils % 87.9 % (40.0-70.0) H 07/07/18 09:35 Seg Neuts % (Manual) 93.0 % (40.0-70.0) H 07/06/18 06:53 Band Neutrophils % 2.0 % 07/06/18 06:53 Lymphocytes % (Manual) 2.0 % (13.4-35.0) L 07/06/18 06:53 Reactive Lymphs % (Man) 0 % 07/06/18 06:53 Monocytes % (Manual) 3.0 % (0.0-7.3) 07/06/18 06:53 Eosinophils % (Manual) 0 % (0.0-4.3) 07/06/18 06:53 Basophils % (Manual) 0 % (0.0-1.8) 07/06/18 06:53 Metamyelocytes % 0 % 07/06/18 06:53 Myelocytes % 0 % 07/06/18 06:53 Promyelocytes % 0 % 07/06/18 06:53 Blast Cells % 0 % 07/06/18 06:53 Nucleated RBC % Not Reportable 07/06/18 06:53 Seg Neutrophils # 8.2 K/mm3 (1.8-7.7) H 07/07/18 09:35 Seg Neutrophils # Man 8.6 K/mm3 (1.8-7.7) H 07/06/18 06:53 Band Neutrophils # 0.2 K/mm3 07/06/18 06:53 Lymphocytes # (Manual) 0.2 K/mm3 (1.2-5.4) L 07/06/18 06:53 Abs React Lymphs (Man) 0.0 K/mm3 07/06/18 06:53 Monocytes # (Manual) 0.3 K/mm3 (0.0-0.8) 07/06/18 06:53 Eosinophils # (Manual) 0.0 K/mm3 (0.0-0.4) 07/06/18 06:53 Basophils # (Manual) 0.0 K/mm3 (0.0-0.1) 07/06/18 06:53 Metamyelocytes # 0.0 K/mm3 07/06/18 06:53 Myelocytes # 0.0 K/mm3 07/06/18 06:53 Promyelocytes # 0.0 K/mm3 07/06/18 06:53 Blast Cells # 0.0 K/mm3 07/06/18 06:53 WBC Morphology Not Reportable 07/06/18 06:53 Hypersegmented Neuts Not Reportable 07/06/18 06:53 Hyposegmented Neuts Not Reportable 07/06/18 06:53 Hypogranular Neuts Not Reportable 07/06/18 06:53 Smudge Cells Not Reportable 07/06/18 06:53 Toxic Granulation Not Reportable 07/06/18 06:53 Toxic Vacuolation Not Reportable 07/06/18 06:53 Dohle Bodies Not Reportable 07/06/18 06:53 Pelger-Huet Anomaly Not Reportable 07/06/18 06:53 Nomi Rods Not Reportable 07/06/18 06:53 Platelet Estimate Cons 07/06/18 06:53 Clumped Platelets Not Reportable 07/06/18 06:53 Plt Clumps, EDTA Not Reportable 07/06/18 06:53 Large Platelets Not Reportable 07/06/18 06:53 Giant Platelets Not Reportable 07/06/18 06:53 Platelet Satelliting Not Reportable 07/06/18 06:53 Plt Morphology Comment Not Reportable 07/06/18 06:53 RBC Morphology Normal 07/06/18 06:53 Dimorphic RBCs Not Reportable 07/06/18 06:53 Polychromasia Not Reportable 07/06/18 06:53 Hypochromasia Not Reportable 07/06/18 06:53 Poikilocytosis Not Reportable 07/06/18 06:53 Anisocytosis Not Reportable 07/06/18 06:53 Microcytosis Not Reportable 07/06/18 06:53 Macrocytosis Not Reportable 07/06/18 06:53 Spherocytes Not Reportable 07/06/18 06:53 Pappenheimer Bodies Not Reportable 07/06/18 06:53 Sickle Cells Not Reportable 07/06/18 06:53 Target Cells Not Reportable 07/06/18 06:53 Tear Drop Cells Not Reportable 07/06/18 06:53 Ovalocytes Not Reportable 07/06/18 06:53 Helmet Cells Not Reportable 07/06/18 06:53 Barnhart-[place] Bodies Not Reportable 07/06/18 06:53 [place] Rings Not Reportable 07/06/18 06:53 [place] Cells Not Reportable 07/06/18 06:53 Bite Cells Not Reportable 07/06/18 06:53 Crenated Cell Not Reportable 07/06/18 06:53 Elliptocytes Not Reportable 07/06/18 06:53 Acanthocytes (Spur) Not Reportable 07/06/18 06:53 Rouleaux Not Reportable 07/06/18 06:53 Hemoglobin C Crystals Not Reportable 07/06/18 06:53 Schistocytes Not Reportable 07/06/18 06:53 Malaria parasites Not Reportable 07/06/18 06:53 Navneet Bodies Not Reportable 07/06/18 06:53 Hem Pathologist Commnt No 07/06/18 06:53 PT 13.6 Sec. (12.2-14.9) 07/03/18 12:39 INR 0.98 (0.87-1.13) 07/03/18 12:39 APTT 34.1 Sec. (24.2-36.6) 07/03/18 12:39 D-Dimer > 76814 ng/mlDDU (0-234) H 06/28/18 22:26 Heparin Anti-Xa Level 1.70 U.I./ml (0.3-0.7) H 07/04/18 14:59 Sodium 130 mmol/L (137-145) L 07/07/18 09:35 Potassium 3.4 mmol/L (3.6-5.0) L 07/07/18 09:35 Chloride 90.3 mmol/L (98-107) L 07/07/18 09:35 Carbon Dioxide 24 mmol/L (22-30) 07/07/18 09:35 Anion Gap 19 mmol/L 07/07/18 09:35 BUN 29 mg/dL (7-17) H 07/07/18 09:35 Creatinine 8.0 mg/dL (0.7-1.2) H 07/07/18 09:35 Estimated GFR 6 ml/min 07/07/18 09:35 BUN/Creatinine Ratio 4 % 07/07/18 09:35 Glucose 201 mg/dL (65-100) H 07/07/18 09:35 POC Glucose 181 (70-105) H 07/07/18 07:56 Lactic Acid 2.20 mmol/L (0.7-2.0) H* 07/02/18 05:22 Calcium 8.0 mg/dL (8.4-10.2) L 07/07/18 09:35 Total Bilirubin 0.40 mg/dL (0.1-1.2) 06/28/18 20:54 AST 25 units/L (5-40) 06/28/18 20:54 ALT 5 units/L (7-56) L 06/28/18 20:54 Alkaline Phosphatase 88 units/L (35-129) 06/28/18 20:54 Total Creatine Kinase 118 units/L (30-135) 06/29/18 20:37 Troponin T 0.077 ng/mL (0.00-0.029) H 06/29/18 20:37 C-Reactive Protein 7.40 mg/dL (0.00-1.30) H 07/01/18 13:32 Total Protein 7.4 g/dL (6.3-8.2) 06/28/18 20:54 Albumin 3.2 g/dL (3.9-5) L 06/28/18 20:54 Albumin/Globulin Ratio 0.8 % 06/28/18 20:54 Triglycerides 194 mg/dL (2-149) H 06/28/18 10:38 Cholesterol 167 mg/dL (50-199) 06/28/18 10:38 LDL Cholesterol Direct 61 mg/dL (50-130) 06/28/18 10:38 HDL Cholesterol 68 mg/dL (40-59) H 06/28/18 10:38 Cholesterol/HDL Ratio 2.45 % 06/28/18 10:38 Active Medications - Current Medications Current Medications: Generic Name Dose Route Start Last Admin Trade Name Freq PRN Reason Stop Dose Admin Apixaban 5 mg 07/04/18 16:00 07/07/18 11:00 Eliquis PO 5 mg Q12HR DIANE Administration Protocol Aspirin 81 mg 06/29/18 13:00 07/07/18 11:00 Baby Aspirin PO 81 mg QDAY DIANE Administration Atorvastatin Calcium 40 mg 06/29/18 22:00 07/06/18 21:25 Lipitor PO 40 mg QHS DIANE Administration Calcitriol 0.5 mcg 06/29/18 13:00 07/07/18 12:11 Rocaltrol PO 0.5 mcg QDAY DIANE Administration Docusate Sodium 100 mg 07/02/18 10:00 07/07/18 10:56 Colace PO Not Given BID DIANE Famotidine 10 mg 06/30/18 10:00 07/07/18 11:00 Pepcid PO 10 mg QDAY DIANE Administration Insulin Human Lispro 0 unit 06/29/18 22:00 07/07/18 12:11 Humalog SUB-Q Not Given ACHS [facility] Protocol Lidocaine 1 each 06/29/18 13:00 07/07/18 11:00 Lidoderm 5% TD 1 each QDAY [facility] Administration Midodrine 10 mg 07/01/18 14:00 07/07/18 09:30 Proamatine PO Not Given TID [facility] Peritoneal Dialysis Solution 2,000 ml 07/06/18 14:00 07/07/18 11:00 Dianeal Low Calcium W/2.5% Dextrose IP 2,000 ml 0600,1000,1400,1800 [facility] Administration Polyethylene Glycol 17 gm 07/02/18 10:00 07/07/18 10:10 Miralax 3350 PO Not Given QDAY DIANE Sevelamer Carbonate 1,600 mg 06/29/18 12:00 07/07/18 12:11 Renvela PO Not Given TIDWM [facility] Nutrition/Malnutrition Assess - Dietary Evaluation Nutrition/Malnutrition Findings: Nutrition Notes Start: 07/05/18 14:49 Freq: Status: Active Protocol: Document 07/05/18 14:49 RM (Rec: 07/05/18 14:51 RM [id number]) Nutrition Notes Need for Assessment generated from: LOS Initial or Follow up Assessment Current Diagnosis Diabetes Other Pertinent Diagnosis ESRD on PD, Possible sepsis Current Diet Renal,Cardiac Labs/Tests Reviewed Pertinent Medications Reviewed Height 5 ft 6 in Weight 94.4 kg [place] Body Weight (kg) 59.09 BMI 33.5 Subjective/Other Information Screened for LOS. CAPD in progress at time of visit. Recorded PO intake 58% X 2 days. Percent of energy/protein needs met: 77%/49% Burn Absent Trauma Absent #1 Nutrition Diagnosis Inadequate oral intake Etiology ESRD on PD As Evidenced by Signs and Symptoms recorded PO intake 58% X 2 days Is patient on ventilator? No Is Patient Ambulatory and/or Out of Bed Yes REE-(Mercer-St. Jeor-ambulatory/OOB) [ 1931.475 [id number]] Kcal/Kg value to use for calculation 17 Approximate Energy Requirements Using 1605 kcal/Kg Calculation Used for Recommendations Kcal/kg Additional Notes Protein Needs: 92-100g (1.2-1. 3g/kg, 77kg adjBW) Fluid Needs: 1 ml/kcal Nutrition Intervention Change Diet Order: Continue current Add Supplement/Snack (indicate name/kcal Nepro 1 daily /protein ) Provides kCal: 425 Provides Protein (gm) 19 Goal #1 Meet at least 75% of calorie and protein needs via PO and ONS intakes Anticipated Discharge Needs: Renal diet Follow-Up By: 07/09/18 Additional Comments Follow for PO and ONS intakes
--- NOTE | 2018-07-07 13:49 | Progress Note ---
Assessment and Plan - Patient Problems (1) ESRD on peritoneal dialysis Current Visit: Yes Status: Chronic Plan to address problem: ESRD on peritoneal dialysis : - Electrolytes reviewed. -continue current prescription (2) HTN (hypertension) Current Visit: Yes Status: Acute Plan to address problem: Hypertension uncontrolled Continue medications (3) Diabetes Current Visit: Yes Status: Chronic Plan to address problem: Diabetes mellitus type 2 with complications Monitor fingersticks (4) Hypokalemia Current Visit: Yes Status: Acute Plan to address problem: Hypokalemia will repeat 20 meq of KCl today Subjective Principal diagnosis: dvt Interval history: 67-year-old lady with end-stage renal disease on peritoneal dialysis for the past 2 years found unresponsive nephrology following for end-stage renal disease management I ATTEST I SAW THE PATIENT ON PD. She is getting peritoneal dialysis Discussed with nurse ensure complete draining of abdomen Denies any shortness of breath or swelling no diarrhoea. Objective - Vital Signs Vital signs: Vital Signs - 12hr 07/07/18 07/07/18 07/07/18 02:48 04:44 07:56 Temperature 98.2 F 98.3 F 98.9 F Pulse Rate 97 H 90 Respiratory 18 18 16 Rate Blood Pressure 106/66 129/75 Blood Pressure 116/68 [Left] O2 Sat by Pulse 95 96 97 Oximetry 07/07/18 10:00 Temperature Pulse Rate 90 Respiratory Rate Blood Pressure Blood Pressure [Left] O2 Sat by Pulse Oximetry - General Appearance General appearance: well-developed, well-nourished EENT: ATNC, PERRL Neck: no JVD, JVD Respiratory: Present: Clear to Ascultation Cardiology: regular, S1S2 Gastrointestinal: normal, normoactive bowel sounds, other (PERITONEAL DIALYSIS CATHETER) Integumentary: no rash Neurologic: alert and oriented x3, CN 3-12 intact Musculoskeletal: deferred Psychiatric: mood/affect appropriate - Lab 07/07/18 09:35 07/07/18 09:35 Most recent lab results Calcium 8.0 mg/dL (8.4-10.2) L 07/07/18 09:35 Medications & Allergies - Medications Allergies/Adverse Reactions: Allergies No Known Allergies Allergy (Verified 08/18/14 08:52) Home Medications: Home Medications Medication Instructions Recorded Confirmed Last Taken Type Aspirin [Aspirin BABY CHEW TAB] 81 mg PO QDAY #30 08/19/14 06/29/1806/22/16 Rx Calcitriol [Rocaltrol] 0.5 mcg PO QDAY 06/29/18 06/29/18 Unknown History Potassium Chloride [Klor-Con M20] 20 meq PO DAILY 06/29/18 06/29/18 Unknown History Sevelamer Carbonate 1,600 mg PO TID 06/29/18 06/29/18 Unknown History Simvastatin [Zocor] 20 mg PO DAILY 06/29/18 06/29/18 Unknown History Active Medications: Generic Name Dose Route Start Last Admin Trade Name Bhupendra PRN Reason Stop Dose Admin Apixaban 5 mg 07/04/18 16:00 07/07/18 11:00 Eliquis PO 5 mg Q12HR DIANE Administration Protocol Aspirin 81 mg 06/29/18 13:00 07/07/18 11:00 Baby Aspirin PO 81 mg QDAY DIANE Administration Atorvastatin Calcium 40 mg 06/29/18 22:00 07/06/18 21:25 Lipitor PO 40 mg QHS DIANE Administration Calcitriol 0.5 mcg 06/29/18 13:00 07/07/18 12:11 Rocaltrol PO 0.5 mcg QDAY DIANE Administration Docusate Sodium 100 mg 07/02/18 10:00 07/07/18 10:56 Colace PO Not Given BID DIANE Famotidine 10 mg 06/30/18 10:00 07/07/18 11:00 Pepcid PO 10 mg QDAY DIANE Administration Insulin Human Lispro 0 unit 06/29/18 22:00 07/07/18 12:11 Humalog SUB-Q Not Given ACHS [facility] Protocol Lidocaine 1 each 06/29/18 13:00 07/07/18 11:00 Lidoderm 5% TD 1 each QDAY DIANE Administration Midodrine 10 mg 07/01/18 14:00 07/07/18 09:30 Proamatine PO Not Given TID [facility] Peritoneal Dialysis Solution 2,000 ml 07/06/18 14:00 07/07/18 11:00 Dianeal Low Calcium W/2.5% Dextrose IP 2,000 ml 0600,1000,1400,1800 DIANE Administration Polyethylene Glycol 17 gm 07/02/18 10:00 07/07/18 10:10 Miralax 3350 PO Not Given QDAY DIANE Sevelamer Carbonate 1,600 mg 06/29/18 12:00 07/07/18 12:11 Renvela PO Not Given TIDWM DIANE
[2018-07-08 05:31] LABS: Hematocrit 40.8 % (30.3-42.9); Hemoglobin 13.5 gm/dl (10.1-14.3); Mean Corpuscular HGB Conc 33 % (30-34); Mean Corpuscular Volume 104 fl (79-97); Platelet Count 245 K/mm3 (140-440); Red Blood Count 3.93 M/mm3 (3.65-5.03); Red Cell Distribution Width 14.3 % (13.2-15.2)
[2018-07-08] MEDS: DIANEAL LOW CALCIUM W/2.5% DEXTROSE IP SCH ×4 (05:32→18:00)
[2018-07-08 05:54] LABS: Calcium 8.5 mg/dL (8.4-10.2)
[2018-07-08 06:27] LABS: Band Neutrophils # (Manual) 0.3 K/mm3; Basophils % (Manual) 0 % (0.0-1.8); Eosinophils % (Manual) 0 % (0.0-4.3); Platelet Estimate Consistent w Auto; RBC Morphology Normal; Total Cells Counted 100
--- NOTE | 2018-07-08 07:47 | Hem/Onc Progress Note ---
Assessment and Plan 1. Left leg deep venous thrombosis. The patient was on heparin drip. The patient is on peritoneal dialysis. The dose of Eliquis or any direct thrombin inhibitors or other anticoagulation monitoring may become challenging. I will discuss with other team members regarding the dosage. The question arises if a lower dose of Eliquis is sufficient. 2. MCV elevated. We will investigate. 3. Elevated D-dimers. 4. History of renal failure, on peritoneal dialysis. 5. History of hypertension. She was hypotensive at admission. 6. History of diabetes. 7. I will follow the patient during inpatient stay and then in the clinic setting for anticoagulation management. Option of Coumadin is also available but that would involve monitoring. 07/05 - d/w dr cartagena - pharmacy to help reg NOAC - ? eliquis 2.5 q 12? 07/06 - pharmacy has placed pt on 5 mg q 12 07/08 - pt on eliquis - d/w dr noyola - Placement pending gets PD - Patient Problems (1) DVT (deep venous thrombosis) Current Visit: Yes Status: Acute Qualifiers: DVT location: lower extremity Chronicity: acute Subjective Date of service: 07/08/18 Principal diagnosis: dvt Interval history: gets PD Objective - Constitutional Vitals: Last Vital Signs Temp 99.9 F H 07/08/18 03:41 Pulse 108 H 07/08/18 03:43 Resp 20 07/08/18 05:00 BP 124/69 07/08/18 03:41 Pulse Ox 96 07/08/18 03:43 Pain Intensity (0-10): denies any pain General appearance: no acute distress Performance status: 3-limited selfcare - EENT Eyes: EOM intact ENT: clear oral mucosa Lymph node exam: negative cervical - Neck Neck: normal ROM - Respiratory Respiratory effort: Positive: normal Respiratory: bilateral: CTA - Cardiovascular Heart Sounds: Present: S1 & S2 Extremity abnormal: edema - Gastrointestinal General gastrointestinal: Present: soft, other (PD cath) Rectal Exam: deferred - Genitourinary Female genitourinary: Present: deferred - Integumentary Integumentary: warm - Musculoskeletal Musculoskeletal: generalized weakness - Neurologic Neurologic: moves all extremities - Labs Lab Results: Laboratory Results - last 24 hr 07/07/18 07/07/18 07/07/18 07:56 09:35 09:35 WBC 9.3 RBC 3.77 Hgb 13.2 Hct 39.7 MCV 105 H MCH 35 H MCHC 33 RDW 14.8 Plt Count 209 Lymph % (Auto) 6.3 L [place] % (Auto) 5.4 Eos % (Auto) 0.3 Baso % (Auto) 0.1 Lymph # 0.6 L [place] # 0.5 Eos # 0.0 Baso # 0.0 Add Manual Diff Total Counted Seg Neutrophils % 87.9 H Seg Neuts % (Manual) Band Neutrophils % Lymphocytes % (Manual) Reactive Lymphs % (Man) Monocytes % (Manual) Eosinophils % (Manual) Basophils % (Manual) Metamyelocytes % Myelocytes % Promyelocytes % Blast Cells % Nucleated RBC % Seg Neutrophils # 8.2 H Seg Neutrophils # Man Band Neutrophils # Lymphocytes # (Manual) Abs React Lymphs (Man) Monocytes # (Manual) Eosinophils # (Manual) Basophils # (Manual) Metamyelocytes # Myelocytes # Promyelocytes # Blast Cells # WBC Morphology Hypersegmented Neuts Hyposegmented Neuts Hypogranular Neuts Smudge Cells Toxic Granulation Toxic Vacuolation Dohle Bodies Pelger-Huet Anomaly Nomi Rods Platelet Estimate Clumped Platelets Plt Clumps, EDTA Large Platelets Giant Platelets Platelet Satelliting Plt Morphology Comment RBC Morphology Dimorphic RBCs Polychromasia Hypochromasia Poikilocytosis Anisocytosis Microcytosis Macrocytosis Spherocytes Pappenheimer Bodies Sickle Cells Target Cells Tear Drop Cells Ovalocytes Helmet Cells [place] Bodies [place] Rings [place] Cells Bite Cells Crenated Cell Elliptocytes Acanthocytes (Spur) Rouleaux Hemoglobin C Crystals Schistocytes Malaria parasites Navneet Bodies Hem Pathologist Commnt Sodium 130 L Potassium 3.4 L Chloride 90.3 L Carbon Dioxide 24 Anion Gap 19 BUN 29 H Creatinine 8.0 H Estimated GFR 6 BUN/Creatinine Ratio 4 Glucose 201 H POC Glucose 181 H Calcium 8.0 L Vitamin B12 Folate 07/07/18 07/07/18 07/08/18 12:52 21:56 05:19 WBC 12.7 H RBC 3.93 Hgb 13.5 Hct 40.8 MCV 104 H MCH 35 H MCHC 33 RDW 14.3 Plt Count 245 Lymph % (Auto) [place] % (Auto) Eos % (Auto) Baso % (Auto) Lymph # [place] # Eos # Baso # Add Manual Diff Complete Total Counted 100 Seg Neutrophils % Seg Neuts % (Manual) 92.0 H Band Neutrophils % 2.0 Lymphocytes % (Manual) 5.0 L Reactive Lymphs % (Man) 0 Monocytes % (Manual) 1.0 Eosinophils % (Manual) 0 Basophils % (Manual) 0 Metamyelocytes % 0 Myelocytes % 0 Promyelocytes % 0 Blast Cells % 0 Nucleated RBC % 1.0 H Seg Neutrophils # Seg Neutrophils # Man 11.7 H Band Neutrophils # 0.3 Lymphocytes # (Manual) 0.6 L Abs React Lymphs (Man) 0.0 Monocytes # (Manual) 0.1 Eosinophils # (Manual) 0.0 Basophils # (Manual) 0.0 Metamyelocytes # 0.0 Myelocytes # 0.0 Promyelocytes # 0.0 Blast Cells # 0.0 WBC Morphology Not Reportable Hypersegmented Neuts Not Reportable Hyposegmented Neuts Not Reportable Hypogranular Neuts Not Reportable Smudge Cells Not Reportable Toxic Granulation Not Reportable Toxic Vacuolation Not Reportable Dohle Bodies Not Reportable Pelger-Huet Anomaly Not Reportable Nomi Rods Not Reportable Platelet Estimate Consistent w auto Clumped Platelets Not Reportable Plt Clumps, EDTA Not Reportable Large Platelets Not Reportable Giant Platelets Not Reportable Platelet Satelliting Not Reportable Plt Morphology Comment Not Reportable RBC Morphology Normal Dimorphic RBCs Not Reportable Polychromasia Not Reportable Hypochromasia Not Reportable Poikilocytosis Not Reportable Anisocytosis Not Reportable Microcytosis Not Reportable Macrocytosis Not Reportable Spherocytes Not Reportable Pappenheimer Bodies Not Reportable Sickle Cells Not Reportable Target Cells Not Reportable Tear Drop Cells Not Reportable Ovalocytes Not Reportable Helmet Cells Not Reportable [place] Bodies Not Reportable [place] Rings Not Reportable [place] Cells Not Reportable Bite Cells Not Reportable Crenated Cell Not Reportable Elliptocytes Not Reportable Acanthocytes (Spur) Not Reportable Rouleaux Not Reportable Hemoglobin C Crystals Not Reportable Schistocytes Not Reportable Malaria parasites Not Reportable [place] Bodies Not Reportable Hem Pathologist Commnt No Sodium Potassium Chloride Carbon Dioxide Anion Gap BUN Creatinine Estimated GFR BUN/Creatinine Ratio Glucose POC Glucose 161 H 162 H Calcium Vitamin B12 Folate 07/08/18 07/08/18 07/08/18 05:19 05:19 05:19 WBC RBC Hgb Hct MCV MCH MCHC RDW Plt Count Lymph % (Auto) [place] % (Auto) Eos % (Auto) Baso % (Auto) Lymph # [place] # Eos # Baso # Add Manual Diff Total Counted Seg Neutrophils % Seg Neuts % (Manual) Band Neutrophils % Lymphocytes % (Manual) Reactive Lymphs % (Man) Monocytes % (Manual) Eosinophils % (Manual) Basophils % (Manual) Metamyelocytes % Myelocytes % Promyelocytes % Blast Cells % Nucleated RBC % Seg Neutrophils # Seg Neutrophils # Man Band Neutrophils # Lymphocytes # (Manual) Abs React Lymphs (Man) Monocytes # (Manual) Eosinophils # (Manual) Basophils # (Manual) Metamyelocytes # Myelocytes # Promyelocytes # Blast Cells # WBC Morphology Hypersegmented Neuts Hyposegmented Neuts Hypogranular Neuts Smudge Cells Toxic Granulation Toxic Vacuolation Dohle Bodies Pelger-Huet Anomaly Nomi Rods Platelet Estimate Clumped Platelets Plt Clumps, EDTA Large Platelets Giant Platelets Platelet Satelliting Plt Morphology Comment RBC Morphology Dimorphic RBCs Polychromasia Hypochromasia Poikilocytosis Anisocytosis Microcytosis Macrocytosis Spherocytes Pappenheimer Bodies Sickle Cells Target Cells Tear Drop Cells Ovalocytes Helmet Cells [place] Bodies [place] Rings [place] Cells Bite Cells Crenated Cell Elliptocytes Acanthocytes (Spur) Rouleaux Hemoglobin C Crystals Schistocytes Malaria parasites [place] Bodies Hem Pathologist Commnt Sodium 134 L Potassium 3.4 L Chloride 93.6 L Carbon Dioxide 26 Anion Gap 18 BUN 30 H Creatinine 8.0 H Estimated GFR 6 BUN/Creatinine Ratio 4 Glucose 184 H POC Glucose Calcium 8.5 Vitamin B12 1416 H Folate 2.39 L Medications & Allergies - Medications Allergies/Adverse Reactions: Allergies No Known Allergies Allergy (Verified 08/18/14 08:52) Home Medications: Home Medications Medication Instructions Recorded Confirmed Last Taken Type Aspirin [Aspirin BABY CHEW TAB] 81 mg PO QDAY #30 08/19/14 06/29/18 06/23/15 Rx Calcitriol [Rocaltrol] 0.5 mcg PO QDAY 06/29/18 06/29/18 Unknown History Potassium Chloride [Klor-Con M20] 20 meq PO DAILY 06/29/18 06/29/18 Unknown History Sevelamer Carbonate 1,600 mg PO TID 06/29/18 06/29/18 Unknown History Simvastatin [Zocor] 20 mg PO DAILY 06/29/18 06/29/18 Unknown History Active Medications: Generic Name Dose Route Start Last Admin Trade Name Bhupendra PRN Reason Stop Dose Admin Apixaban 5 mg 07/04/18 16:00 07/07/18 22:56 Eliquis PO 5 mg Q12HR DIANE Administration Protocol Aspirin 81 mg 06/29/18 13:00 07/07/18 11:00 Baby Aspirin PO 81 mg QDAY DIANE Administration Atorvastatin Calcium 40 mg 06/29/18 22:00 07/07/18 22:57 Lipitor PO 40 mg QHS DIANE Administration Calcitriol 0.5 mcg 06/29/18 13:00 07/07/18 12:11 Rocaltrol PO 0.5 mcg QDAY DIANE Administration Docusate Sodium 100 mg 07/02/18 10:00 07/07/18 23:08 Colace PO Not Given BID DIANE Famotidine 10 mg 06/30/18 10:00 07/07/18 11:00 Pepcid PO 10 mg QDAY DIANE Administration Insulin Human Lispro 0 unit 06/29/18 22:00 07/07/18 23:28 Humalog SUB-Q 2 unit ACHS DIANE Administration Protocol Lidocaine 1 each 06/29/18 13:00 07/07/18 11:00 Lidoderm 5% TD 1 each QDAY DIANE Administration Midodrine 10 mg 07/01/18 14:00 07/07/18 22:56 Proamatine PO 10 mg TID DIANE Administration Peritoneal Dialysis Solution 2,000 ml 07/06/18 14:00 07/08/18 05:32 Dianeal Low Calcium W/2.5% Dextrose IP 2,000 ml 0600,1000,1400,1800 DIANE Administration Polyethylene Glycol 17 gm 07/02/18 10:00 07/07/18 10:10 Miralax 3350 PO Not Given QDAY DIANE Sevelamer Carbonate 1,600 mg 06/29/18 12:00 07/07/18 18:39 Renvela PO Not Given TIDWM DIANE
[2018-07-08] MEDS: HumaLOG SUB-Q SCH ×4 (08:44→22:36)
[2018-07-08] MEDS: RENVELA PO SCH ×3 (08:48→19:00)
--- NOTE | 2018-07-08 09:36 | Progress Note ---
Assessment and Plan Impression * End-stage renal disease * Hypertension * Diabetes * Abdominal pain * Hypokalemia * Extrusion of external cuff off her PD catheter Recommendations * CAPD going well. Continue current prescriptions. Patient ultrafiltering adequately * No evidence of peritonitis * She has extrusion of the external cuff of the PD catheter. Will need to follow up with her PD surgeon. May be done as an outpatient * Hold Procrit for now as her hemoglobin is 13.5 * Replace potassium Subjective Date of service: 07/08/18 Principal diagnosis: dvt Interval history: Patient feels better this morning. States that her peritoneal dialysis has been going well. Fluid has been clear. Complains of abdominal pain on coughing. Objective - Vital Signs Vital signs: Vital Signs - 12hr 07/07/18 07/08/18 07/08/18 22:00 03:41 03:43 Temperature 99.9 F H Pulse Rate 108 H Respiratory 20 20 Rate Respiratory Rate [Lower Abdomen] Blood Pressure 124/69 O2 Sat by Pulse 96 Oximetry 07/08/18 05:00 Temperature Pulse Rate Respiratory Rate Respiratory 20 Rate [Lower Abdomen] Blood Pressure O2 Sat by Pulse Oximetry - General Appearance General appearance: well-developed, well-nourished, appears stated age EENT: PERRL, mucous membranes moist Neck: no JVD, no thyromegaly, no carotid bruit, supple Respiratory: Present: Clear to Ascultation Cardiology: regular, normal heart rate, S1S2, no murmurs Gastrointestinal: normal, normoactive bowel sounds, other (PD catheter in place. External cuff seems to have extruded) Integumentary: other (no edema) - Lab 07/08/18 05:19 07/08/18 05:19 Most recent lab results Calcium 8.5 mg/dL (8.4-10.2) 07/08/18 05:19 Medications & Allergies - Medications Allergies/Adverse Reactions: Allergies No Known Allergies Allergy (Verified 08/18/14 08:52) Home Medications: Home Medications Medication Instructions Recorded Confirmed Last Taken Type Aspirin [Aspirin BABY CHEW TAB] 81 mg PO QDAY #30 08/19/14 06/29/18 06/23/15 Rx Calcitriol [Rocaltrol] 0.5 mcg PO QDAY 06/29/18 06/29/18 Unknown History Potassium Chloride [Klor-Con M20] 20 meq PO DAILY 06/29/18 06/29/18 Unknown History Sevelamer Carbonate 1,600 mg PO TID 06/29/18 06/29/18 Unknown History Simvastatin [Zocor] 20 mg PO DAILY 06/29/18 06/29/18 Unknown History Active Medications: Generic Name Dose Route Start Last Admin Trade Name Bhupendra PRN Reason Stop Dose Admin Apixaban 5 mg 07/04/18 16:00 07/07/18 22:56 Eliquis PO 5 mg Q12HR DIANE Administration Protocol Aspirin 81 mg 06/29/18 13:00 07/07/18 11:00 Baby Aspirin PO 81 mg QDAY DIANE Administration Atorvastatin Calcium 40 mg 06/29/18 22:00 07/07/18 22:57 Lipitor PO 40 mg QHS DIANE Administration Calcitriol 0.5 mcg 06/29/18 13:00 07/07/18 12:11 Rocaltrol PO 0.5 mcg QDAY DIANE Administration Docusate Sodium 100 mg 07/02/18 10:00 07/07/18 23:08 Colace PO Not Given BID DIANE Insulin Human Lispro 0 unit 06/29/18 22:00 07/07/18 23:28 Humalog SUB-Q 2 unit ACHS DIANE Administration Protocol Lidocaine 1 each 06/29/18 13:00 07/07/18 11:00 Lidoderm 5% TD 1 each QDAY DIANE Administration Midodrine 10 mg 07/01/18 14:00 07/07/18 22:56 Proamatine PO 10 mg TID DIANE Administration Pantoprazole Sodium 40 mg 07/08/18 10:00 Protonix PO QDAY DIANE Peritoneal Dialysis Solution 2,000 ml 07/06/18 14:00 07/08/18 05:32 Dianeal Low Calcium W/2.5% Dextrose IP 2,000 ml 0600,1000,1400,1800 DIANE Administration Polyethylene Glycol 17 gm 07/02/18 10:00 07/07/18 10:10 Miralax 3350 PO Not Given QDAY DIANE Sevelamer Carbonate 1,600 mg 06/29/18 12:00 07/07/18 18:39 Renvela PO Not Given TIDWM [facility]
[2018-07-08] MEDS ORDERED: K-DUR PO ONE (10:30)
[2018-07-08] MEDS: PROAMATINE PO SCH ×3 (10:48→22:29)
[2018-07-08] MEDS: ROCALTROL PO SCH (10:57)
[2018-07-08] MEDS: COLACE PO SCH ×2 (11:00→22:29)
[2018-07-08] MEDS: ELIQUIS PO SCH ×2 (11:00→22:29)
[2018-07-08] MEDS: BABY ASPIRIN PO SCH (11:49)
[2018-07-08] MEDS: PROTONIX PO SCH (12:49)
--- NOTE | 2018-07-08 13:37 | Progress Note ---
Assessment and Plan Assessment and plan: Patient is a 67-year-old female past medical history of end-stage renal disease on peritoneal dialysis, hypertension hyperlipidemia, diabetes mellitus type 2 on diet control, presented to ER by EMS after having a fall around 9 AM in the morning but she had no loss of consciousness or hit her head. she was sitting on bed and accidentaly "slid to ground". She was unable to get up from the bed as she was feeling very weak in her legs. Her family called emergency services to break into her house around 5pm. She was then brought to the ER for further evaluation and management . She noted to have highly elevated d-dimer, elevated white count. In the ED, patient was hypotensive w/ WBC 24.8. CTA chest was unremarkable. V/Q scan was also low prob PE. She denies fever, chills, PD fluid has been clear. She was placed on Levophed, given IV Rocephin and admitted. she was diagnosed with SIRS, hypotension. Sjhe improved on Levophed was weaned off. She is admitted me. She has swelling of the legs on both ultrasound confirmed a DVT of left lower extremity for which she has been hemodynamically seen. However patient has failure to thrive, debility, she feels very weak and unable to stand. I discussed with case management she started working on acute rehabilitation placement. The patient developed fever and leukocytosis today, 07/08/18 so not stable to go. Labs ordered. SIRS without organ dysfunction - suspected sepsis on admission, ruled out - Antibiotics were discontinued - No infiltrates noted on CTA chest/chest x-ray/VQ scan, patient does not make urine Hypotension - Patient was placed on levophed, now weaned off - cont midodrine for now Fever ,today 07/08/18 Obtain Blood cultures, UA, Urine Cx, CXR Leukocytosis HLD, on statin ESRD on PD, Nephrology following Diabetes type 2, diet controlled, SSI PLACED as needed ACHS Elevated troponin/NSTEMI type 2 - Cardiology following - Stress test negative DVT left lower ext. Was Started Heparin drip consulted Hematology and she was seen by Dr. Funez. I discussed with him amd he recommends Eliquis. Started Eliquis. Discontinued heparin Debility PT evaluation done patient unable to stand, and she lives alone. discussed with case management Patient may need acute rehab Dispo: Patient was stable for discharge awaiting placement however today 07/08/18, has fever and this is being worked up. History Interval history: Generalized weakness Unable to stand up because of weakness Lower abd pain Newly diagnosed DVT left leg Hospitalist Physical - Physical exam Narrative exam: GEN: Not in acute distress, lying in bed, obese HEENT: Normocephalic, atraumatic, Neck: supple, No JVD heart: S1 and S2 reg, no murmurs, rubs or gallop Lungs: clear to auscultation bilateral, wheeze Abd:soft, mild tender lower abd, no rebound, non distended, PD catheter. normal bowel sounds Ext: Edema both lower ext, no cyanosis Neuro:Awake,alert,oriented X 3, no focal signs, moves all ext Psych: normal mood - Constitutional Vitals: Temp Pulse Resp BP Pulse Ox 100.1 F H 123 H 18 111/72 98 07/08/18 08:20 07/08/18 08:20 07/08/18 08:20 07/08/18 08:20 07/08/18 08:20 General appearance: Present: no acute distress, obese Results - Labs CBC & Chem 7: 07/08/18 05:19 07/08/18 05:19 Labs: Laboratory Last Values WBC 12.7 K/mm3 (4.5-11.0) H 07/08/18 05:19 RBC 3.93 M/mm3 (3.65-5.03) 07/08/18 05:19 Hgb 13.5 gm/dl (10.1-14.3) 07/08/18 05:19 Hct 40.8 % (30.3-42.9) 07/08/18 05:19 MCV 104 fl (79-97) H 07/08/18 05:19 MCH 35 pg (28-32) H 07/08/18 05:19 MCHC 33 % (30-34) 07/08/18 05:19 RDW 14.3 % (13.2-15.2) 07/08/18 05:19 Plt Count 245 K/mm3 (140-440) 07/08/18 05:19 Lymph % (Auto) 6.3 % (13.4-35.0) L 07/07/18 09:35 Stokes % (Auto) 5.4 % (0.0-7.3) 07/07/18 09:35 Eos % (Auto) 0.3 % (0.0-4.3) 07/07/18 09:35 Baso % (Auto) 0.1 % (0.0-1.8) 07/07/18 09:35 Lymph # 0.6 K/mm3 (1.2-5.4) L 07/07/18 09:35 Stokes # 0.5 K/mm3 (0.0-0.8) 07/07/18 09:35 Eos # 0.0 K/mm3 (0.0-0.4) 07/07/18 09:35 Baso # 0.0 K/mm3 (0.0-0.1) 07/07/18 09:35 Add Manual Diff Complete 07/08/18 05:19 Total Counted 100 07/08/18 05:19 Seg Neutrophils % 87.9 % (40.0-70.0) H 07/07/18 09:35 Seg Neuts % (Manual) 92.0 % (40.0-70.0) H 07/08/18 05:19 Band Neutrophils % 2.0 % 07/08/18 05:19 Lymphocytes % (Manual) 5.0 % (13.4-35.0) L 07/08/18 05:19 Reactive Lymphs % (Man) 0 % 07/08/18 05:19 Monocytes % (Manual) 1.0 % (0.0-7.3) 07/08/18 05:19 Eosinophils % (Manual) 0 % (0.0-4.3) 07/08/18 05:19 Basophils % (Manual) 0 % (0.0-1.8) 07/08/18 05:19 Metamyelocytes % 0 % 07/08/18 05:19 Myelocytes % 0 % 07/08/18 05:19 Promyelocytes % 0 % 07/08/18 05:19 Blast Cells % 0 % 07/08/18 05:19 Nucleated RBC % 1.0 % (0.0-0.9) H 07/08/18 05:19 Seg Neutrophils # 8.2 K/mm3 (1.8-7.7) H 07/07/18 09:35 Seg Neutrophils # Man 11.7 K/mm3 (1.8-7.7) H 07/08/18 05:19 Band Neutrophils # 0.3 K/mm3 07/08/18 05:19 Lymphocytes # (Manual) 0.6 K/mm3 (1.2-5.4) L 07/08/18 05:19 Abs React Lymphs (Man) 0.0 K/mm3 07/08/18 05:19 Monocytes # (Manual) 0.1 K/mm3 (0.0-0.8) 07/08/18 05:19 Eosinophils # (Manual) 0.0 K/mm3 (0.0-0.4) 07/08/18 05:19 Basophils # (Manual) 0.0 K/mm3 (0.0-0.1) 07/08/18 05:19 Metamyelocytes # 0.0 K/mm3 07/08/18 05:19 Myelocytes # 0.0 K/mm3 07/08/18 05:19 Promyelocytes # 0.0 K/mm3 07/08/18 05:19 Blast Cells # 0.0 K/mm3 07/08/18 05:19 WBC Morphology Not Reportable 07/08/18 05:19 Hypersegmented Neuts Not Reportable 07/08/18 05:19 Hyposegmented Neuts Not Reportable 07/08/18 05:19 Hypogranular Neuts Not Reportable 07/08/18 05:19 Smudge Cells Not Reportable 07/08/18 05:19 Toxic Granulation Not Reportable 07/08/18 05:19 Toxic Vacuolation Not Reportable 07/08/18 05:19 Dohle Bodies Not Reportable 07/08/18 05:19 Pelger-Huet Anomaly Not Reportable 07/08/18 05:19 Nomi Rods Not Reportable 07/08/18 05:19 Platelet Estimate Consistent w auto 07/08/18 05:19 Clumped Platelets Not Reportable 07/08/18 05:19 Plt Clumps, EDTA Not Reportable 07/08/18 05:19 Large Platelets Not Reportable 07/08/18 05:19 Giant Platelets Not Reportable 07/08/18 05:19 Platelet Satelliting Not Reportable 07/08/18 05:19 Plt Morphology Comment Not Reportable 07/08/18 05:19 RBC Morphology Normal 07/08/18 05:19 Dimorphic RBCs Not Reportable 07/08/18 05:19 Polychromasia Not Reportable 07/08/18 05:19 Hypochromasia Not Reportable 07/08/18 05:19 Poikilocytosis Not Reportable 07/08/18 05:19 Anisocytosis Not Reportable 07/08/18 05:19 Microcytosis Not Reportable 07/08/18 05:19 Macrocytosis Not Reportable 07/08/18 05:19 Spherocytes Not Reportable 07/08/18 05:19 Pappenheimer Bodies Not Reportable 07/08/18 05:19 Sickle Cells Not Reportable 07/08/18 05:19 Target Cells Not Reportable 07/08/18 05:19 Tear Drop Cells Not Reportable 07/08/18 05:19 Ovalocytes Not Reportable 07/08/18 05:19 Helmet Cells Not Reportable 07/08/18 05:[address] [place] Bodies Not Reportable 07/08/18 05:19 [place] Rings Not Reportable 07/08/18 05:19 [place] Cells Not Reportable 07/08/18 05:19 Bite Cells Not Reportable 07/08/18 05:19 Crenated Cell Not Reportable 07/08/18 05:19 Elliptocytes Not Reportable 07/08/18 05:19 Acanthocytes (Spur) Not Reportable 07/08/18 05:19 Rouleaux Not Reportable 07/08/18 05:19 Hemoglobin C Crystals Not Reportable 07/08/18 05:19 Schistocytes Not Reportable 07/08/18 05:19 Malaria parasites Not Reportable 07/08/18 05:19 Navneet Bodies Not Reportable 07/08/18 05:19 Hem Pathologist Commnt No 07/08/18 05:19 PT 13.6 Sec. (12.2-14.9) 07/03/18 12:39 INR 0.98 (0.87-1.13) 07/03/18 12:39 APTT 34.1 Sec. (24.2-36.6) 07/03/18 12:39 D-Dimer > 14521 ng/mlDDU (0-234) H 06/28/18 22:26 Heparin Anti-Xa Level 1.70 U.I./ml (0.3-0.7) H 07/04/18 14:59 Sodium 134 mmol/L (137-145) L 07/08/18 05:19 Potassium 3.4 mmol/L (3.6-5.0) L 07/08/18 05:19 Chloride 93.6 mmol/L (98-107) L 07/08/18 05:19 Carbon Dioxide 26 mmol/L (22-30) 07/08/18 05:19 Anion Gap 18 mmol/L 07/08/18 05:19 BUN 30 mg/dL (7-17) H 07/08/18 05:19 Creatinine 8.0 mg/dL (0.7-1.2) H 07/08/18 05:19 Estimated GFR 6 ml/min 07/08/18 05:19 BUN/Creatinine Ratio 4 % 07/08/18 05:19 Glucose 184 mg/dL (65-100) H 07/08/18 05:19 POC Glucose 202 (70-105) H 07/08/18 11:48 Lactic Acid 2.20 mmol/L (0.7-2.0) H* 07/02/18 05:22 Calcium 8.5 mg/dL (8.4-10.2) 07/08/18 05:19 Total Bilirubin 0.40 mg/dL (0.1-1.2) 06/28/18 20:54 AST 25 units/L (5-40) 06/28/18 20:54 ALT 5 units/L (7-56) L 06/28/18 20:54 Alkaline Phosphatase 88 units/L (35-129) 06/28/18 20:54 Total Creatine Kinase 118 units/L (30-135) 06/29/18 20:37 Troponin T 0.077 ng/mL (0.00-0.029) H 06/29/18 20:37 C-Reactive Protein 7.40 mg/dL (0.00-1.30) H 07/01/18 13:32 Total Protein 7.4 g/dL (6.3-8.2) 06/28/18 20:54 Albumin 3.2 g/dL (3.9-5) L 06/28/18 20:54 Albumin/Globulin Ratio 0.8 % 06/28/18 20:54 Triglycerides 194 mg/dL (2-149) H 06/28/18 10:38 Cholesterol 167 mg/dL (50-199) 06/28/18 10:38 LDL Cholesterol Direct 61 mg/dL (50-130) 06/28/18 10:38 HDL Cholesterol 68 mg/dL (40-59) H 06/28/18 10:38 Cholesterol/HDL Ratio 2.45 % 06/28/18 10:38 Vitamin B12 1416 pg/mL (211-911) H 07/08/18 05:19 Folate 2.39 ng/mL (7.3-26.0) L 07/08/18 05:19 Active Medications - Current Medications Current Medications: Generic Name Dose Route Start Last Admin Trade Name Freq PRN Reason Stop Dose Admin Apixaban 5 mg 07/04/18 16:00 07/08/18 11:00 Eliquis PO 5 mg Q12HR DIANE Administration Protocol Aspirin 81 mg 06/29/18 13:00 07/08/18 11:49 Baby Aspirin PO 81 mg QDAY DIANE Administration Atorvastatin Calcium 40 mg 06/29/18 22:00 07/07/18 22:57 Lipitor PO 40 mg QHS DIANE Administration Calcitriol 0.5 mcg 06/29/18 13:00 07/07/18 12:11 Rocaltrol PO 0.5 mcg QDAY DIANE Administration Docusate Sodium 100 mg 07/02/18 10:00 07/07/18 23:08 Colace PO Not Given BID DIANE Insulin Human Lispro 0 unit 06/29/18 22:00 07/08/18 12:44 Humalog SUB-Q 3 unit ACHS DIANE Administration Protocol Lidocaine 1 each 06/29/18 13:00 07/07/18 11:00 Lidoderm 5% TD 1 each QDAY DIANE Administration Midodrine 10 mg 07/01/18 14:00 07/08/18 10:48 Proamatine PO 10 mg TID DIANE Administration Pantoprazole Sodium 40 mg 07/08/18 10:00 07/08/18 12:49 Protonix PO 40 mg QDAY DIANE Administration Peritoneal Dialysis Solution 2,000 ml 07/06/18 14:00 07/08/18 05:32 Dianeal Low Calcium W/2.5% Dextrose IP 2,000 ml 0600,1000,1400,1800 DIANE Administration Polyethylene Glycol 17 gm 07/02/18 10:00 07/07/18 10:10 Miralax 3350 PO Not Given QDAY DIANE Sevelamer Carbonate 1,600 mg 06/29/18 12:00 07/08/18 12:48 Renvela PO 1,600 mg TIDWM DIANE Administration Nutrition/Malnutrition Assess - Dietary Evaluation Nutrition/Malnutrition Findings: Nutrition Notes Start: 07/05/18 14:49 Freq: Status: Active Protocol: Document 07/05/18 14:49 RM (Rec: 07/05/18 14:51 RM [id number]) Nutrition Notes Need for Assessment generated from: LOS Initial or Follow up Assessment Current Diagnosis Diabetes Other Pertinent Diagnosis ESRD on PD, Possible sepsis Current Diet Renal,Cardiac Labs/Tests Reviewed Pertinent Medications Reviewed Height 5 ft 6 in Weight 94.4 kg [place] Body Weight (kg) 59.09 BMI 33.5 Subjective/Other Information Screened for LOS. CAPD in progress at time of visit. Recorded PO intake 58% X 2 days. Percent of energy/protein needs met: 77%/49% Burn Absent Trauma Absent #1 Nutrition Diagnosis Inadequate oral intake Etiology ESRD on PD As Evidenced by Signs and Symptoms recorded PO intake 58% X 2 days Is patient on ventilator? No Is Patient Ambulatory and/or Out of Bed Yes REE-(Dane-St. Jeor-ambulatory/OOB) [ 1931.475 [id number]] Kcal/Kg value to use for calculation 17 Approximate Energy Requirements Using 1605 kcal/Kg Calculation Used for Recommendations Kcal/kg Additional Notes Protein Needs: 92-100g (1.2-1. 3g/kg, 77kg adjBW) Fluid Needs: 1 ml/kcal Nutrition Intervention Change Diet Order: Continue current Add Supplement/Snack (indicate name/kcal Nepro 1 daily /protein ) Provides kCal: 425 Provides Protein (gm) 19 Goal #1 Meet at least 75% of calorie and protein needs via PO and ONS intakes Anticipated Discharge Needs: Renal diet Follow-Up By: 07/09/18 Additional Comments Follow for PO and ONS intakes
[2018-07-08] MEDS: LIDODERM 5% TD SCH (14:00)
--- NOTE | 2018-07-08 14:29 | XRay Report ---
AP CHEST :07/08/18 CLINICAL: Fever COMPARISON:06/29/18 FINDINGS: The heart is normal size. Normal pulmonary vessels. The right pulmonary vessels are more prominent due to rotation. Improved expansion of the left lower lobe and resolution of subsegmental atelectasis since the last exam. No airspace disease or pleural effusion. No tubes or lines. IMPRESSION: Negative chest. No pneumonia.
[2018-07-08] MEDS: MORPHINE IV PRN (16:32)
[2018-07-08] MEDS: MIRALAX 3350 PO SCH (16:55)
--- NOTE | 2018-07-08 17:34 | Progress Note ---
Assessment and Plan Patient presently receiving Peritoneal dialysis.Patient complaining slight abdominal discomfort.Patient is on room air.O2 saturation 99% . No complaint of chest pain, shortness of breath or cough.Patient Obese. Having excessive day time sleepiness. Recommend sleep study as out patient.Venous doppler studies reported extensive left leg DVT.Patient is on Apixaban. - Patient Problems (1) NSTEMI (non-ST elevated myocardial infarction) Current Visit: Yes Status: Acute Plan to address problem: Management as per cardiology. (2) HTN (hypertension) Current Visit: Yes Status: Acute Plan to address problem: Management as per primary care. (3) Diabetes Current Visit: Yes Status: Chronic Plan to address problem: Mangement as per primary care. (4) ESRD on peritoneal dialysis Current Visit: Yes Status: Acute Plan to address problem: Management as per Nephrology. Patient is on peritoneal dialysis. (5) Elevated d-dimer Current Visit: Yes Status: Acute Plan to address problem: Perfusion lung scan reported low probability for pulmonary emboli. Venous doppler studies of legs reported extensive left leg DVT. (6) Obesity (BMI 30.0-34.9) Current Visit: Yes Status: Acute Plan to address problem: Diet and exercise to loose weight. Sleep study as out patient. (7) DVT (deep venous thrombosis) Current Visit: Yes Status: Acute Qualifiers: DVT location: lower extremity Chronicity: acute Plan to address problem: Patients venous doppler studies reported extensive left leg DVT. Patient is on Apixaban. Subjective Date of service: 07/08/18 Principal diagnosis: dvt Interval history: Patient presently receiving Peritoneal dialysis.Patient complaining slight abdominal discomfort.Patient is on room air.O2 saturation 99% . No complaint of chest pain, shortness of breath or cough.Patient Obese. Having excessive day time sleepiness. Recommend sleep study as out patient.Venous doppler studies reported extensive left leg DVT.Patient is on Apixaban. Objective Vital Signs - 12hr 07/08/18 07/08/18 08:20 13:57 Temperature 100.1 F H 98.6 F Pulse Rate 123 H 96 H Respiratory 18 18 Rate Blood Pressure 111/72 94/66 O2 Sat by Pulse 98 99 Oximetry Constitutional: no acute distress, alert Eyes: non-icteric ENT: oropharynx moist, other (mallampati 3) Neck: supple, no lymphadenopathy, no JVD, other (large neck circumference) Effort: normal Ascultation: Bilateral: diminished breath sounds, rhonchi (scant in bases) Percussion: Bilateral: not dull Cardiovascular: regular rate and rhythm, other (No R/M) Gastrointestinal: normoactive bowel sounds, soft, non-distended, other (No HSM, PD cathetr, clean dry site, mild lower abdominal tenderness, no rebound) Integumentary: normal Extremities: no cyanosis, no edema, pulses normal, no ischemia or petechiae Neurologic: normal mental status, non-focal exam (grossly), pupils equal and round, motor strength normal and Psychiatric: mood appropriate, affect normal CBC and BMP: 07/08/18 05:19 07/08/18 05:19 ABG, PT/INR, D-dimer: PT/INR, D-dimer PT 13.6 Sec. (12.2-14.9) 07/03/18 12:39 INR 0.98 (0.87-1.13) 07/03/18 12:39 D-Dimer > 67077 ng/mlDDU (0-234) H 06/28/18 22:26 Abnormal lab findings: Abnormal Labs 06/28/18 06/28/18 06/28/18 10:38 20:54 20:54 WBC 24.8 H RBC Hgb 16.6 H Hct 50.3 H MCV 107 H MCH 35 H RDW 15.6 H Plt Count Lymph % (Auto) Lymph # Baso # Seg Neutrophils % Seg Neuts % (Manual) 95.0 H Lymphocytes % (Manual) 3.0 L Nucleated RBC % Seg Neutrophils # Seg Neutrophils # Man 23.6 H Lymphocytes # (Manual) 0.7 L D-Dimer Heparin Anti-Xa Level Sodium 131 L Potassium Chloride 89.6 L Carbon Dioxide 19 L BUN 29 H Creatinine 9.3 H Glucose 174 H POC Glucose Lactic Acid Calcium ALT 5 L Troponin T 0.073 H C-Reactive Protein Albumin 3.2 L Triglycerides 194 H HDL Cholesterol 68 H Vitamin B12 Folate 06/28/18 06/29/18 06/29/18 22:26 12:18 13:30 WBC RBC Hgb Hct MCV MCH RDW Plt Count Lymph % (Auto) Lymph # Baso # Seg Neutrophils % Seg Neuts % (Manual) Lymphocytes % (Manual) Nucleated RBC % Seg Neutrophils # Seg Neutrophils # Man Lymphocytes # (Manual) D-Dimer > 06324 H Heparin Anti-Xa Level Sodium Potassium Chloride Carbon Dioxide BUN Creatinine Glucose POC Glucose 168 H Lactic Acid Calcium ALT Troponin T 0.073 H C-Reactive Protein Albumin Triglycerides HDL Cholesterol Vitamin B12 Folate 06/29/18 06/29/18 06/29/18 13:30 14:11 16:36 WBC 19.8 H RBC Hgb 14.7 H Hct 45.4 H MCV 108 H MCH 35 H RDW 15.9 H Plt Count Lymph % (Auto) Lymph # Baso # Seg Neutrophils % Seg Neuts % (Manual) Lymphocytes % (Manual) Nucleated RBC % Seg Neutrophils # Seg Neutrophils # Man Lymphocytes # (Manual) D-Dimer Heparin Anti-Xa Level Sodium 133 L Potassium Chloride 91.7 L Carbon Dioxide 20 L BUN 33 H Creatinine 9.9 H Glucose 196 H POC Glucose 165 H Lactic Acid Calcium ALT Troponin T C-Reactive Protein Albumin Triglycerides HDL Cholesterol Vitamin B12 Folate 06/29/18 06/29/18 06/30/18 20:37 22:01 04:49 WBC 14.8 H RBC Hgb Hct MCV 106 H MCH 35 H RDW 15.5 H Plt Count Lymph % (Auto) Lymph # Baso # Seg Neutrophils % Seg Neuts % (Manual) 90.0 H Lymphocytes % (Manual) 5.0 L Nucleated RBC % Seg Neutrophils # Seg Neutrophils # Man 13.3 H Lymphocytes # (Manual) 0.7 L D-Dimer Heparin Anti-Xa Level Sodium Potassium Chloride Carbon Dioxide BUN Creatinine Glucose POC Glucose 202 H Lactic Acid Calcium ALT Troponin T 0.077 H C-Reactive Protein Albumin Triglycerides HDL Cholesterol Vitamin B12 Folate 06/30/18 06/30/18 06/30/18 04:49 08:27 12:17 WBC RBC Hgb Hct MCV MCH RDW Plt Count Lymph % (Auto) Lymph # Baso # Seg Neutrophils % Seg Neuts % (Manual) Lymphocytes % (Manual) Nucleated RBC % Seg Neutrophils # Seg Neutrophils # Man Lymphocytes # (Manual) D-Dimer Heparin Anti-Xa Level Sodium 134 L Potassium 3.5 L Chloride 94.7 L Carbon Dioxide BUN 30 H Creatinine 8.8 H Glucose 182 H POC Glucose 170 H 145 H Lactic Acid Calcium 7.9 L ALT Troponin T C-Reactive Protein Albumin Triglycerides HDL Cholesterol Vitamin B12 Folate 06/30/18 06/30/18 07/01/18 16:44 22:06 07:21 WBC 11.8 H RBC 3.32 L Hgb Hct MCV 105 H MCH 35 H RDW 15.5 H Plt Count 125 L Lymph % (Auto) Lymph # Baso # Seg Neutrophils % Seg Neuts % (Manual) Lymphocytes % (Manual) Nucleated RBC % Seg Neutrophils # Seg Neutrophils # Man Lymphocytes # (Manual) D-Dimer Heparin Anti-Xa Level Sodium Potassium Chloride Carbon Dioxide BUN Creatinine Glucose POC Glucose 155 H 174 H Lactic Acid Calcium ALT Troponin T C-Reactive Protein Albumin Triglycerides HDL Cholesterol Vitamin B12 Folate 07/01/18 07/01/18 07/01/18 07:21 08:22 11:38 WBC RBC Hgb Hct MCV MCH RDW Plt Count Lymph % (Auto) Lymph # Baso # Seg Neutrophils % Seg Neuts % (Manual) Lymphocytes % (Manual) Nucleated RBC % Seg Neutrophils # Seg Neutrophils # Man Lymphocytes # (Manual) D-Dimer Heparin Anti-Xa Level Sodium 134 L Potassium Chloride 95.9 L Carbon Dioxide BUN 31 H Creatinine 8.4 H Glucose 151 H POC Glucose 117 H 166 H Lactic Acid Calcium 7.8 L ALT Troponin T C-Reactive Protein Albumin Triglycerides HDL Cholesterol Vitamin B12 Folate 07/01/18 07/01/18 07/01/18 13:32 13:32 16:27 WBC RBC Hgb Hct MCV MCH RDW Plt Count Lymph % (Auto) Lymph # Baso # Seg Neutrophils % Seg Neuts % (Manual) Lymphocytes % (Manual) Nucleated RBC % Seg Neutrophils # Seg Neutrophils # Man Lymphocytes # (Manual) D-Dimer Heparin Anti-Xa Level Sodium Potassium Chloride Carbon Dioxide BUN Creatinine Glucose POC Glucose 149 H Lactic Acid 2.20 H* Calcium ALT Troponin T C-Reactive Protein 7.40 H Albumin Triglycerides HDL Cholesterol Vitamin B12 Folate 07/01/18 07/01/18 07/02/18 19:35 21:36 05:22 WBC RBC Hgb Hct MCV MCH RDW Plt Count Lymph % (Auto) Lymph # Baso # Seg Neutrophils % Seg Neuts % (Manual) Lymphocytes % (Manual) Nucleated RBC % Seg Neutrophils # Seg Neutrophils # Man Lymphocytes # (Manual) D-Dimer Heparin Anti-Xa Level Sodium Potassium Chloride Carbon Dioxide BUN Creatinine Glucose POC Glucose 129 H Lactic Acid 2.60 H* 2.20 H* Calcium ALT Troponin T C-Reactive Protein Albumin Triglycerides HDL Cholesterol Vitamin B12 Folate 07/02/18 07/02/18 07/02/18 05:22 05:22 07:11 WBC 12.6 H RBC 3.51 L Hgb Hct MCV 105 H MCH 35 H RDW Plt Count 132 L Lymph % (Auto) Lymph # Baso # Seg Neutrophils % Seg Neuts % (Manual) 92.0 H Lymphocytes % (Manual) 2.0 L Nucleated RBC % Seg Neutrophils # Seg Neutrophils # Man 11.6 H Lymphocytes # (Manual) 0.3 L D-Dimer Heparin Anti-Xa Level Sodium 131 L Potassium 3.3 L Chloride 93.1 L Carbon Dioxide BUN 31 H Creatinine 7.5 H Glucose 228 H POC Glucose 215 H Lactic Acid Calcium 7.7 L ALT Troponin T C-Reactive Protein Albumin Triglycerides HDL Cholesterol Vitamin B12 Folate 07/02/18 07/02/18 07/03/18 15:35 21:56 10:56 WBC RBC Hgb Hct MCV MCH RDW Plt Count Lymph % (Auto) Lymph # Baso # Seg Neutrophils % Seg Neuts % (Manual) Lymphocytes % (Manual) Nucleated RBC % Seg Neutrophils # Seg Neutrophils # Man Lymphocytes # (Manual) D-Dimer Heparin Anti-Xa Level Sodium 130 L Potassium Chloride 91.6 L Carbon Dioxide BUN 33 H Creatinine 7.8 H Glucose POC Glucose 123 H 135 H Lactic Acid Calcium 7.7 L ALT Troponin T C-Reactive Protein Albumin Triglycerides HDL Cholesterol Vitamin B12 Folate 07/03/18 07/03/18 07/03/18 11:00 21:03 22:06 WBC 11.9 H RBC 3.59 L Hgb Hct MCV 103 H MCH 35 H RDW Plt Count Lymph % (Auto) Lymph # Baso # Seg Neutrophils % Seg Neuts % (Manual) 94.0 H Lymphocytes % (Manual) 5.0 L Nucleated RBC % Seg Neutrophils # Seg Neutrophils # Man 11.2 H Lymphocytes # (Manual) 0.6 L D-Dimer Heparin Anti-Xa Level 0.28 L Sodium Potassium Chloride Carbon Dioxide BUN Creatinine Glucose POC Glucose 177 H Lactic Acid Calcium ALT Troponin T C-Reactive Protein Albumin Triglycerides HDL Cholesterol Vitamin B12 Folate 07/04/18 07/04/18 07/04/18 01:08 05:22 05:22 WBC 13.1 H RBC Hgb Hct MCV 104 H MCH 35 H RDW Plt Count 139 L Lymph % (Auto) 5.0 L Lymph # 0.7 L Baso # 0.2 H Seg Neutrophils % 87.7 H Seg Neuts % (Manual) Lymphocytes % (Manual) Nucleated RBC % Seg Neutrophils # 11.5 H Seg Neutrophils # Man Lymphocytes # (Manual) D-Dimer Heparin Anti-Xa Level Sodium 132 L Potassium 3.1 L Chloride 92.4 L Carbon Dioxide BUN 30 H Creatinine 7.4 H Glucose 113 H POC Glucose 106 H Lactic Acid Calcium 7.8 L ALT Troponin T C-Reactive Protein Albumin Triglycerides HDL Cholesterol Vitamin B12 Folate 07/04/18 07/04/18 07/04/18 05:22 12:15 14:59 WBC RBC Hgb Hct MCV MCH RDW Plt Count Lymph % (Auto) Lymph # Baso # Seg Neutrophils % Seg Neuts % (Manual) Lymphocytes % (Manual) Nucleated RBC % Seg Neutrophils # Seg Neutrophils # Man Lymphocytes # (Manual) D-Dimer Heparin Anti-Xa Level 1.31 H 1.70 H Sodium Potassium Chloride Carbon Dioxide BUN Creatinine Glucose POC Glucose 200 H Lactic Acid Calcium ALT Troponin T C-Reactive Protein Albumin Triglycerides HDL Cholesterol Vitamin B12 Folate 07/04/18 07/05/18 07/05/18 20:56 06:17 06:17 WBC RBC 3.51 L Hgb Hct MCV 104 H MCH 35 H RDW Plt Count Lymph % (Auto) 7.8 L Lymph # 0.7 L Baso # Seg Neutrophils % 85.2 H Seg Neuts % (Manual) Lymphocytes % (Manual) Nucleated RBC % Seg Neutrophils # Seg Neutrophils # Man Lymphocytes # (Manual) D-Dimer Heparin Anti-Xa Level Sodium 132 L Potassium 3.1 L Chloride 92.7 L Carbon Dioxide BUN 29 H Creatinine 7.3 H Glucose 115 H POC Glucose 133 H Lactic Acid Calcium 7.9 L ALT Troponin T C-Reactive Protein Albumin Triglycerides HDL Cholesterol Vitamin B12 Folate 07/05/18 07/06/18 07/06/18 23:47 06:53 06:53 WBC RBC 3.47 L Hgb Hct MCV 104 H MCH 35 H RDW Plt Count Lymph % (Auto) Lymph # Baso # Seg Neutrophils % Seg Neuts % (Manual) 93.0 H Lymphocytes % (Manual) 2.0 L Nucleated RBC % Seg Neutrophils # Seg Neutrophils # Man 8.6 H Lymphocytes # (Manual) 0.2 L D-Dimer Heparin Anti-Xa Level Sodium 132 L Potassium 3.2 L Chloride 94.5 L Carbon Dioxide BUN 32 H Creatinine 8.7 H Glucose 106 H POC Glucose 112 H Lactic Acid Calcium 7.8 L ALT Troponin T C-Reactive Protein Albumin Triglycerides HDL Cholesterol Vitamin B12 Folate 07/06/18 07/06/18 07/07/18 16:23 22:56 07:56 WBC RBC Hgb Hct MCV MCH RDW Plt Count Lymph % (Auto) Lymph # Baso # Seg Neutrophils % Seg Neuts % (Manual) Lymphocytes % (Manual) Nucleated RBC % Seg Neutrophils # Seg Neutrophils # Man Lymphocytes # (Manual) D-Dimer Heparin Anti-Xa Level Sodium Potassium Chloride Carbon Dioxide BUN Creatinine Glucose POC Glucose 126 H 139 H 181 H Lactic Acid Calcium ALT Troponin T C-Reactive Protein Albumin Triglycerides HDL Cholesterol Vitamin B12 Folate 07/07/18 07/07/18 07/07/18 09:35 09:35 12:52 WBC RBC Hgb Hct MCV 105 H MCH 35 H RDW Plt Count Lymph % (Auto) 6.3 L Lymph # 0.6 L Baso # Seg Neutrophils % 87.9 H Seg Neuts % (Manual) Lymphocytes % (Manual) Nucleated RBC % Seg Neutrophils # 8.2 H Seg Neutrophils # Man Lymphocytes # (Manual) D-Dimer Heparin Anti-Xa Level Sodium 130 L Potassium 3.4 L Chloride 90.3 L Carbon Dioxide BUN 29 H Creatinine 8.0 H Glucose 201 H POC Glucose 161 H Lactic Acid Calcium 8.0 L ALT Troponin T C-Reactive Protein Albumin Triglycerides HDL Cholesterol Vitamin B12 Folate 07/07/18 07/08/18 07/08/18 21:56 05:19 05:19 WBC 12.7 H RBC Hgb Hct MCV 104 H MCH 35 H RDW Plt Count Lymph % (Auto) Lymph # Baso # Seg Neutrophils % Seg Neuts % (Manual) 92.0 H Lymphocytes % (Manual) 5.0 L Nucleated RBC % 1.0 H Seg Neutrophils # Seg Neutrophils # Man 11.7 H Lymphocytes # (Manual) 0.6 L D-Dimer Heparin Anti-Xa Level Sodium 134 L Potassium 3.4 L Chloride 93.6 L Carbon Dioxide BUN 30 H Creatinine 8.0 H Glucose 184 H POC Glucose 162 H Lactic Acid Calcium ALT Troponin T C-Reactive Protein Albumin Triglycerides HDL Cholesterol Vitamin B12 Folate 07/08/18 07/08/18 07/08/18 05:19 05:19 08:25 WBC RBC Hgb Hct MCV MCH RDW Plt Count Lymph % (Auto) Lymph # Baso # Seg Neutrophils % Seg Neuts % (Manual) Lymphocytes % (Manual) Nucleated RBC % Seg Neutrophils # Seg Neutrophils # Man Lymphocytes # (Manual) D-Dimer Heparin Anti-Xa Level Sodium Potassium Chloride Carbon Dioxide BUN Creatinine Glucose POC Glucose 200 H Lactic Acid Calcium ALT Troponin T C-Reactive Protein Albumin Triglycerides HDL Cholesterol Vitamin B12 1416 H Folate 2.39 L 07/08/18 07/08/18 11:48 16:14 WBC RBC Hgb Hct MCV MCH RDW Plt Count Lymph % (Auto) Lymph # Baso # Seg Neutrophils % Seg Neuts % (Manual) Lymphocytes % (Manual) Nucleated RBC % Seg Neutrophils # Seg Neutrophils # Man Lymphocytes # (Manual) D-Dimer Heparin Anti-Xa Level Sodium Potassium Chloride Carbon Dioxide BUN Creatinine Glucose POC Glucose 202 H 176 H Lactic Acid Calcium ALT Troponin T C-Reactive Protein Albumin Triglycerides HDL Cholesterol Vitamin B12 Folate Additional Studies: DD/ TD/TT: 07/03/18 PROCEDURE: VL VENOUS DUPLEX LE BILAT TECHNIQUE: Grayscale, color flow and spectral waveform images were obtained of bilateral lower extremities. HISTORY: Elevated D dimer. COMPARISON: None FINDINGS: Left: There is occlusive DVT in the left lower extremity involving the mid to distal superficial femoral vein, popliteal vein, to of 2 posterior tibial veins, and peroneal vein. There is also superficial venous thrombus seen in the soleal vein at the upper calf. Right: There is no deep venous thrombosis seen in the right lower extremity. Flow in right deep veins demonstrated by color flow and spectral waveform imaging. There is appropriate wall c ompression and augmentation. IMPRESSION: Extensive DVT on the left from mid superficial femoral vein to the calf. There is also superficial venous thrombus in the calf. No DVT seen on the right. Allied health notes reviewed: nursing
[2018-07-08] MEDS ORDERED: POTASSIUM CHLORIDE FEEDTUBE ONE (20:32)
[2018-07-09] MEDS: DIANEAL LOW CALCIUM W/2.5% DEXTROSE IP SCH ×4 (05:48→18:31)
--- NOTE | 2018-07-09 07:53 | Hem/Onc Progress Note ---
Assessment and Plan 1. Left leg deep venous thrombosis. The patient was on heparin drip. The patient is on peritoneal dialysis. The dose of Eliquis or any direct thrombin inhibitors or other anticoagulation monitoring may become challenging. I will discuss with other team members regarding the dosage. The question arises if a lower dose of Eliquis is sufficient. 2. MCV elevated. We will investigate. 3. Elevated D-dimers. 4. History of renal failure, on peritoneal dialysis. 5. History of hypertension. She was hypotensive at admission. 6. History of diabetes. 7. I will follow the patient during inpatient stay and then in the clinic setting for anticoagulation management. Option of Coumadin is also available but that would involve monitoring. 07/05 - d/w dr cartagena - pharmacy to help reg NOAC - ? eliquis 2.5 q 12? 07/06 - pharmacy has placed pt on 5 mg q 12 07/08 - pt on eliquis - d/w dr noyola - Placement pending gets PD 07/09 - pt had fever on eliquis for left leg dvt. h/o abdo discomfort - on and off - Patient Problems (1) DVT (deep venous thrombosis) Current Visit: Yes Status: Acute Qualifiers: DVT location: lower extremity Chronicity: acute Subjective Date of service: 07/09/18 Principal diagnosis: dvt Interval history: pt had fever Objective - Constitutional Vitals: Last Vital Signs Temp 98.1 F 07/09/18 02:43 Pulse 86 07/09/18 02:43 Resp 17 07/09/18 02:43 BP 110/68 07/09/18 02:43 Pulse Ox 97 07/09/18 02:43 Pain Intensity (0-10): denies any pain General appearance: no acute distress Performance status: 4-completely disabled - EENT Eyes: EOM intact ENT: clear oral mucosa Lymph node exam: negative cervical - Neck Neck: supple - Respiratory Respiratory effort: Positive: normal Respiratory: bilateral: CTA - Cardiovascular Rhythm: regular Extremity abnormal: edema - Gastrointestinal General gastrointestinal: Present: soft, non-tender Rectal Exam: deferred - Genitourinary Female genitourinary: Present: deferred - Integumentary Integumentary: warm - Musculoskeletal Musculoskeletal: strength equal bilaterally - Neurologic Neurologic: moves all extremities - Labs Lab Results: Laboratory Results - last 24 hr 07/08/18 07/08/18 07/08/18 08:25 11:48 16:14 POC Glucose 200 H 202 H 176 H 07/08/18 21:53 POC Glucose 219 H Medications & Allergies - Medications Allergies/Adverse Reactions: Allergies No Known Allergies Allergy (Verified 08/18/14 08:52) Home Medications: Home Medications Medication Instructions Recorded Confirmed Last Taken Type Aspirin [Aspirin BABY CHEW TAB] 81 mg PO QDAY #30 08/19/14 06/29/18 06/23/15 Rx Calcitriol [Rocaltrol] 0.5 mcg PO QDAY 06/29/18 06/29/18 Unknown History Potassium Chloride [Klor-Con M20] 20 meq PO DAILY 06/29/18 06/29/18 Unknown History Sevelamer Carbonate 1,600 mg PO TID 06/29/18 06/29/18 Unknown History Simvastatin [Zocor] 20 mg PO DAILY 06/29/18 06/29/18 Unknown History Active Medications: Generic Name Dose Route Start Last Admin Trade Name Freq PRN Reason Stop Dose Admin Apixaban 5 mg 07/04/18 16:00 07/08/18 22:29 Eliquis PO 5 mg Q12HR DIANE Administration Protocol Aspirin 81 mg 06/29/18 13:00 07/08/18 11:49 Baby Aspirin PO 81 mg QDAY DIANE Administration Atorvastatin Calcium 40 mg 06/29/18 22:00 07/08/18 22:29 Lipitor PO 40 mg QHS DIANE Administration Calcitriol 0.5 mcg 06/29/18 13:00 07/08/18 10:57 Rocaltrol PO Not Given QDAY DIANE Docusate Sodium 100 mg 07/02/18 10:00 07/08/18 22:29 Colace PO 100 mg BID DIANE Administration Insulin Human Lispro 0 unit 06/29/18 22:00 07/08/18 22:36 Humalog SUB-Q 3 unit ACHS DIANE Administration Protocol Lidocaine 1 each 06/29/18 13:00 07/08/18 14:00 Lidoderm 5% TD 1 each QDAY DIANE Administration Midodrine 10 mg 07/01/18 14:00 07/08/18 22:29 Proamatine PO 10 mg TID DIANE Administration Morphine Sulfate 2 mg 07/08/18 14:51 07/08/18 16:32 Morphine IV 2 mg Q4H PRN Administration Pain, Moderate (4-6) Pantoprazole Sodium 40 mg 07/08/18 10:00 07/08/18 12:49 Protonix PO 40 mg QDAY DIANE Administration Peritoneal Dialysis Solution 2,000 ml 07/06/18 14:00 07/09/18 05:48 Dianeal Low Calcium W/2.5% Dextrose IP 2,000 ml 0600,1000,1400,1800 DIANE Administration Polyethylene Glycol 17 gm 07/02/18 10:00 07/08/18 16:55 Miralax 3350 PO Not Given QDAY DIANE Sevelamer Carbonate 1,600 mg 06/29/18 12:00 07/08/18 19:00 Renvela PO Not Given TIDWM DIANE
--- NOTE | 2018-07-09 08:59 | Progress Note ---
Assessment and Plan Impression * End-stage renal disease * Hypertension * Diabetes * Abdominal pain * Hypokalemia * Extrusion of external cuff off her PD catheter Recommendations * CAPD going well. Continue current prescriptions. Patient ultrafiltering adequately * No evidence of peritonitis * She has extrusion of the external cuff of the PD catheter. Will need to follow up with her PD surgeon. May be done as an outpatient * Hold Procrit for now as her hemoglobin is 13.5 * Replace potassium * Repeat PD fluid for cell count and culture Subjective Date of service: 07/09/18 Principal diagnosis: dvt Interval history: Patient feels better this morning. States that her peritoneal dialysis has been going well. Fluid has been clear. Still complains of abdominal pain . Denies any nausea or vomiting or diarrhea Objective - Vital Signs Vital signs: Vital Signs - 12hr 07/08/18 07/09/18 07/09/18 22:00 02:43 07:48 Temperature 98.1 F 99.1 F Pulse Rate 86 111 H Pulse Rate [ 98 H Apical] Respiratory 17 17 18 Rate Blood Pressure 110/68 106/68 O2 Sat by Pulse 97 94 Oximetry - General Appearance General appearance: well-developed, well-nourished, appears stated age, obese EENT: PERRL, mucous membranes moist Neck: no JVD, no thyromegaly, no carotid bruit, supple Respiratory: Present: Clear to Ascultation Cardiology: regular, normal heart rate, S1S2, no murmurs Gastrointestinal: normoactive bowel sounds, tenderness (mild diffuse tenderness. No rebound or guarding. PD catheter in place) Integumentary: other (no edema) - Lab 07/08/18 05:19 07/08/18 05:19 Most recent lab results Calcium 8.5 mg/dL (8.4-10.2) 07/08/18 05:19 Medications & Allergies - Medications Allergies/Adverse Reactions: Allergies No Known Allergies Allergy (Verified 08/18/14 08:52) Home Medications: Home Medications Medication Instructions Recorded Confirmed Last Taken Type Aspirin [Aspirin BABY CHEW TAB] 81 mg PO QDAY #30 08/19/14 06/29/18 06/23/15 Rx Calcitriol [Rocaltrol] 0.5 mcg PO QDAY 06/29/18 06/29/18 Unknown History Potassium Chloride [Klor-Con M20] 20 meq PO DAILY 06/29/18 06/29/18 Unknown History Sevelamer Carbonate 1,600 mg PO TID 06/29/18 06/29/18 Unknown History Simvastatin [Zocor] 20 mg PO DAILY 06/29/18 06/29/18 Unknown History Active Medications: Generic Name Dose Route Start Last Admin Trade Name Freq PRN Reason Stop Dose Admin Apixaban 5 mg 07/04/18 16:00 07/08/18 22:29 Eliquis PO 5 mg Q12HR DIANE Administration Protocol Aspirin 81 mg 06/29/18 13:00 07/08/18 11:49 Baby Aspirin PO 81 mg QDAY DIANE Administration Atorvastatin Calcium 40 mg 06/29/18 22:00 07/08/18 22:29 Lipitor PO 40 mg QHS DIANE Administration Calcitriol 0.5 mcg 06/29/18 13:00 07/08/18 10:57 Rocaltrol PO Not Given QDAY DIANE Docusate Sodium 100 mg 07/02/18 10:00 07/08/18 22:29 Colace PO 100 mg BID DIANE Administration Insulin Human Lispro 0 unit 06/29/18 22:00 07/08/18 22:36 Humalog SUB-Q 3 unit ACHS DIANE Administration Protocol Lidocaine 1 each 06/29/18 13:00 07/08/18 14:00 Lidoderm 5% TD 1 each QDAY DIANE Administration Midodrine 10 mg 07/01/18 14:00 07/08/18 22:29 Proamatine PO 10 mg TID DIANE Administration Morphine Sulfate 2 mg 07/08/18 14:51 07/08/18 16:32 Morphine IV 2 mg Q4H PRN Administration Pain, Moderate (4-6) Pantoprazole Sodium 40 mg 07/08/18 10:00 07/08/18 12:49 Protonix PO 40 mg QDAY DIANE Administration Peritoneal Dialysis Solution 2,000 ml 07/06/18 14:00 07/09/18 05:48 Dianeal Low Calcium W/2.5% Dextrose IP 2,000 ml 0600,1000,1400,1800 DIANE Administration Polyethylene Glycol 17 gm 07/02/18 10:00 07/08/18 16:55 Miralax 3350 PO Not Given QDAY DIANE Sevelamer Carbonate 1,600 mg 06/29/18 12:00 07/08/18 19:00 Renvela PO Not Given TIDWM DIANE
[2018-07-09] MEDS ORDERED: K-DUR PO ONE (10:00)
[2018-07-09 10:26] LABS: Hematocrit 43.4 % (30.3-42.9); Hemoglobin 14.1 gm/dl (10.1-14.3); Mean Corpuscular HGB Conc 32 % (30-34); Mean Corpuscular Volume 105 fl (79-97); Platelet Count 279 K/mm3 (140-440); Red Blood Count 4.13 M/mm3 (3.65-5.03); Red Cell Distribution Width 14.4 % (13.2-15.2)
[2018-07-09] MEDS: ROCALTROL PO SCH (10:43)
[2018-07-09] MEDS: HumaLOG SUB-Q SCH ×4 (10:44→23:07)
[2018-07-09] MEDS: RENVELA PO SCH ×3 (10:44→18:37)
[2018-07-09] MEDS: MIRALAX 3350 PO SCH (10:44)
[2018-07-09] MEDS: BABY ASPIRIN PO SCH (10:45)
[2018-07-09] MEDS: ELIQUIS PO SCH ×2 (10:45→21:37)
[2018-07-09] MEDS: PROTONIX PO SCH (10:45)
[2018-07-09] MEDS: COLACE PO SCH ×2 (10:45→21:37)
[2018-07-09 10:48] LABS: Calcium 8.6 mg/dL (8.4-10.2)
[2018-07-09] MEDS: PROAMATINE PO SCH ×3 (10:52→21:37)
[2018-07-09 11:25] LABS: Basophils % (Manual) 0 % (0.0-1.8); Eosinophils % (Manual) 0 % (0.0-4.3); Giant Platelets Few; RBC Morphology Normal; Total Cells Counted 100
[2018-07-09 11:26] LABS: Platelet Estimate Consistent w Auto
--- NOTE | 2018-07-09 11:31 | Progress Note ---
Assessment and Plan Assessment and plan: SIRS without organ dysfunction - suspected sepsis on admission, ruled out - Antibiotics were discontinued - No infiltrates noted on CTA chest/chest x-ray/VQ scan, patient does not make urine Hypotension - Patient was placed on levophed, now weaned off - cont midodrine for now Low-grade Fever (100.1), 07/08/18 Obtain Blood cultures, UA, Urine Cx, CXR negative Leukocytosis HLD, on statin ESRD on PD, Nephrology following Diabetes type 2, diet controlled, SSI PLACED as needed ACHS Elevated troponin/NSTEMI type 2 - Cardiology following - Stress test negative DVT left lower ext. Was Started Heparin drip consulted Hematology and she was seen by Dr. Funez. I discussed with him amd he recommends Eliquis. Started Eliquis. Discontinued heparin Debility PT evaluation done patient unable to stand, and she lives alone. discussed with case management Patient may need acute rehab Dispo: Patient was stable for discharge awaiting placement however today 07/08/18, has fever and this is being worked up. History Interval history: No issues overnight Hospitalist Physical - Constitutional Vitals: Temp Pulse Resp BP Pulse Ox 99.1 F 111 H 18 106/68 94 07/09/18 07:48 07/09/18 07:48 07/09/18 07:48 07/09/18 07:48 07/09/18 07:48 General appearance: Present: no acute distress, obese - EENT Eyes: Present: PERRL, EOM intact ENT: hearing intact, clear oral mucosa, dentition normal - Neck Neck: Present: supple, normal ROM - Respiratory Respiratory effort: normal Respiratory: bilateral: CTA - Cardiovascular Rhythm: regular Heart Sounds: Present: S1 & S2. Absent: gallop, rub - Extremities Extremities: no ischemia, No edema, Full ROM - Abdominal General gastrointestinal: soft, non-tender, non-distended, normal bowel sounds - Integumentary Integumentary: Present: clear, warm, dry - Neurologic Neurologic: CNII-XII intact, moves all extremities Results - Labs CBC & Chem 7: 07/09/18 09:51 07/09/18 09:51 Labs: Laboratory Last Values WBC 15.8 K/mm3 (4.5-11.0) H 07/09/18 09:51 RBC 4.13 M/mm3 (3.65-5.03) 07/09/18 09:51 Hgb 14.1 gm/dl (10.1-14.3) 07/09/18 09:51 Hct 43.4 % (30.3-42.9) H 07/09/18 09:51 MCV 105 fl (79-97) H 07/09/18 09:51 MCH 34 pg (28-32) H 07/09/18 09:51 MCHC 32 % (30-34) 07/09/18 09:51 RDW 14.4 % (13.2-15.2) 07/09/18 09:51 Plt Count 279 K/mm3 (140-440) 07/09/18 09:51 Lymph % (Auto) 6.3 % (13.4-35.0) L 07/07/18 09:35 Clay % (Auto) 5.4 % (0.0-7.3) 07/07/18 09:35 Eos % (Auto) 0.3 % (0.0-4.3) 07/07/18 09:35 Baso % (Auto) 0.1 % (0.0-1.8) 07/07/18 09:35 Lymph # 0.6 K/mm3 (1.2-5.4) L 07/07/18 09:35 Clay # 0.5 K/mm3 (0.0-0.8) 07/07/18 09:35 Eos # 0.0 K/mm3 (0.0-0.4) 07/07/18 09:35 Baso # 0.0 K/mm3 (0.0-0.1) 07/07/18 09:35 Add Manual Diff Complete 07/08/18 05:19 Total Counted 100 07/08/18 05:19 Seg Neutrophils % [employer] 07/09/18 09:51 Seg Neuts % (Manual) 92.0 % (40.0-70.0) H 07/08/18 05:19 Band Neutrophils % 2.0 % 07/08/18 05:19 Lymphocytes % (Manual) 5.0 % (13.4-35.0) L 07/08/18 05:19 Reactive Lymphs % (Man) 0 % 07/08/18 05:19 Monocytes % (Manual) 1.0 % (0.0-7.3) 07/08/18 05:19 Eosinophils % (Manual) 0 % (0.0-4.3) 07/08/18 05:19 Basophils % (Manual) 0 % (0.0-1.8) 07/08/18 05:19 Metamyelocytes % 0 % 07/08/18 05:19 Myelocytes % 0 % 07/08/18 05:19 Promyelocytes % 0 % 07/08/18 05:19 Blast Cells % 0 % 07/08/18 05:19 Nucleated RBC % 1.0 % (0.0-0.9) H 07/08/18 05:19 Seg Neutrophils # 8.2 K/mm3 (1.8-7.7) H 07/07/18 09:35 Seg Neutrophils # Man 11.7 K/mm3 (1.8-7.7) H 07/08/18 05:19 Band Neutrophils # 0.3 K/mm3 07/08/18 05:19 Lymphocytes # (Manual) 0.6 K/mm3 (1.2-5.4) L 07/08/18 05:19 Abs React Lymphs (Man) 0.0 K/mm3 07/08/18 05:19 Monocytes # (Manual) 0.1 K/mm3 (0.0-0.8) 07/08/18 05:19 Eosinophils # (Manual) 0.0 K/mm3 (0.0-0.4) 07/08/18 05:19 Basophils # (Manual) 0.0 K/mm3 (0.0-0.1) 07/08/18 05:19 Metamyelocytes # 0.0 K/mm3 07/08/18 05:19 Myelocytes # 0.0 K/mm3 07/08/18 05:19 Promyelocytes # 0.0 K/mm3 07/08/18 05:19 Blast Cells # 0.0 K/mm3 07/08/18 05:19 WBC Morphology Not Reportable 07/08/18 05:19 Hypersegmented Neuts Not Reportable 07/08/18 05:19 Hyposegmented Neuts Not Reportable 07/08/18 05:19 Hypogranular Neuts Not Reportable 07/08/18 05:19 Smudge Cells Not Reportable 07/08/18 05:19 Toxic Granulation Not Reportable 07/08/18 05:19 Toxic Vacuolation Not Reportable 07/08/18 05:19 Dohle Bodies Not Reportable 07/08/18 05:19 Pelger-Huet Anomaly Not Reportable 07/08/18 05:19 Nomi Rods Not Reportable 07/08/18 05:19 Platelet Estimate Consistent w auto 07/08/18 05:19 Clumped Platelets Not Reportable 07/08/18 05:19 Plt Clumps, EDTA Not Reportable 07/08/18 05:19 Large Platelets Not Reportable 07/08/18 05:19 Giant Platelets Not Reportable 07/08/18 05:19 Platelet Satelliting Not Reportable 07/08/18 05:19 Plt Morphology Comment Not Reportable 07/08/18 05:19 RBC Morphology Normal 07/08/18 05:19 Dimorphic RBCs Not Reportable 07/08/18 05:19 Polychromasia Not Reportable 07/08/18 05:19 Hypochromasia Not Reportable 07/08/18 05:19 Poikilocytosis Not Reportable 07/08/18 05:19 Anisocytosis Not Reportable 07/08/18 05:19 Microcytosis Not Reportable 07/08/18 05:19 Macrocytosis Not Reportable 07/08/18 05:19 Spherocytes Not Reportable 07/08/18 05:19 Pappenheimer Bodies Not Reportable 07/08/18 05:19 Sickle Cells Not Reportable 07/08/18 05:19 Target Cells Not Reportable 07/08/18 05:19 Tear Drop Cells Not Reportable 07/08/18 05:19 Ovalocytes Not Reportable 07/08/18 05:19 Helmet Cells Not Reportable 07/08/18 05:19 Barnhart-Lester Bodies Not Reportable 07/08/18 05:19 Reading Rings Not Reportable 07/08/18 05:19 Edgar Cells Not Reportable 07/08/18 05:19 Bite Cells Not Reportable 07/08/18 05:19 Crenated Cell Not Reportable 07/08/18 05:19 Elliptocytes Not Reportable 07/08/18 05:19 Acanthocytes (Spur) Not Reportable 07/08/18 05:19 Rouleaux Not Reportable 07/08/18 05:19 Hemoglobin C Crystals Not Reportable 07/08/18 05:19 Schistocytes Not Reportable 07/08/18 05:19 Malaria parasites Not Reportable 07/08/18 05:19 Navneet Bodies Not Reportable 07/08/18 05:19 Hem Pathologist Commnt No 07/08/18 05:19 PT 13.6 Sec. (12.2-14.9) 07/03/18 12:39 INR 0.98 (0.87-1.13) 07/03/18 12:39 APTT 34.1 Sec. (24.2-36.6) 07/03/18 12:39 D-Dimer > 79862 ng/mlDDU (0-234) H 06/28/18 22:26 Heparin Anti-Xa Level 1.70 U.I./ml (0.3-0.7) H 07/04/18 14:59 Sodium 135 mmol/L (137-145) L 07/09/18 09:51 Potassium 3.7 mmol/L (3.6-5.0) 07/09/18 09:51 Chloride 95.5 mmol/L (98-107) L 07/09/18 09:51 Carbon Dioxide 24 mmol/L (22-30) 07/09/18 09:51 Anion Gap 19 mmol/L 07/09/18 09:51 BUN 29 mg/dL (7-17) H 07/09/18 09:51 Creatinine 8.4 mg/dL (0.7-1.2) H 07/09/18 09:51 Estimated GFR 6 ml/min 07/09/18 09:51 BUN/Creatinine Ratio 3 % 07/09/18 09:51 Glucose 204 mg/dL (65-100) H 07/09/18 09:51 POC Glucose 163 (70-105) H 07/09/18 07:50 Lactic Acid 2.20 mmol/L (0.7-2.0) H* 07/02/18 05:22 Calcium 8.6 mg/dL (8.4-10.2) 07/09/18 09:51 Total Bilirubin 0.40 mg/dL (0.1-1.2) 06/28/18 20:54 AST 25 units/L (5-40) 06/28/18 20:54 ALT 5 units/L (7-56) L 06/28/18 20:54 Alkaline Phosphatase 88 units/L (35-129) 06/28/18 20:54 Total Creatine Kinase 118 units/L (30-135) 06/29/18 20:37 Troponin T 0.077 ng/mL (0.00-0.029) H 06/29/18 20:37 C-Reactive Protein 7.40 mg/dL (0.00-1.30) H 07/01/18 13:32 Total Protein 7.4 g/dL (6.3-8.2) 06/28/18 20:54 Albumin 3.2 g/dL (3.9-5) L 06/28/18 20:54 Albumin/Globulin Ratio 0.8 % 06/28/18 20:54 Triglycerides 194 mg/dL (2-149) H 06/28/18 10:38 Cholesterol 167 mg/dL (50-199) 06/28/18 10:38 LDL Cholesterol Direct 61 mg/dL (50-130) 06/28/18 10:38 HDL Cholesterol 68 mg/dL (40-59) H 06/28/18 10:38 Cholesterol/HDL Ratio 2.45 % 06/28/18 10:38 Vitamin B12 1416 pg/mL (211-911) H 07/08/18 05:19 Folate 2.39 ng/mL (7.3-26.0) L 07/08/18 05:19 Active Medications - Current Medications Current Medications: Generic Name Dose Route Start Last Admin Trade Name Freq PRN Reason Stop Dose Admin Apixaban 5 mg 07/04/18 16:00 07/09/18 10:45 Eliquis PO 5 mg Q12HR DIANE Administration Protocol Aspirin 81 mg 06/29/18 13:00 07/09/18 10:45 Baby Aspirin PO 81 mg QDAY DIANE Administration Atorvastatin Calcium 40 mg 06/29/18 22:00 07/08/18 22:29 Lipitor PO 40 mg QHS DIANE Administration Calcitriol 0.5 mcg 06/29/18 13:00 07/09/18 10:43 Rocaltrol PO 0.5 mcg QDAY DIANE Administration Docusate Sodium 100 mg 07/02/18 10:00 07/09/18 10:45 Colace PO 100 mg BID DIANE Administration Insulin Human Lispro 0 unit 06/29/18 22:00 07/09/18 10:44 Humalog SUB-Q 2 unit ACHS DIANE Administration Protocol Lidocaine 1 each 06/29/18 13:00 07/08/18 14:00 Lidoderm 5% TD 1 each QDAY DIANE Administration Midodrine 10 mg 07/01/18 14:00 07/09/18 10:52 Proamatine PO 10 mg TID DIANE Administration Morphine Sulfate 2 mg 07/08/18 14:51 07/08/18 16:32 Morphine IV 2 mg Q4H PRN Administration Pain, Moderate (4-6) Pantoprazole Sodium 40 mg 07/08/18 10:00 07/09/18 10:45 Protonix PO 40 mg QDAY DIANE Administration Peritoneal Dialysis Solution 2,000 ml 07/06/18 14:00 07/09/18 10:48 Dianeal Low Calcium W/2.5% Dextrose IP 2,000 ml 0600,1000,1400,1800 DIANE Administration Polyethylene Glycol 17 gm 07/02/18 10:00 07/09/18 10:44 Miralax 3350 PO 17 gm QDAY DIANE Administration Sevelamer Carbonate 1,600 mg 06/29/18 12:00 07/09/18 10:44 Renvela PO 1,600 mg TIDWM DIANE Administration Nutrition/Malnutrition Assess - Dietary Evaluation Nutrition/Malnutrition Findings: Nutrition Notes Start: 07/05/18 14:49 Freq: Status: Active Protocol: Document 07/05/18 14:49 RM (Rec: 07/05/18 14:51 RM [id number]) Nutrition Notes Need for Assessment generated from: LOS Initial or Follow up Assessment Current Diagnosis Diabetes Other Pertinent Diagnosis ESRD on PD, Possible sepsis Current Diet Renal,Cardiac Labs/Tests Reviewed Pertinent Medications Reviewed Height 5 ft 6 in Weight 94.4 kg [place] Body Weight (kg) 59.09 BMI 33.5 Subjective/Other Information Screened for LOS. CAPD in progress at time of visit. Recorded PO intake 58% X 2 days. Percent of energy/protein needs met: 77%/49% Burn Absent Trauma Absent #1 Nutrition Diagnosis Inadequate oral intake Etiology ESRD on PD As Evidenced by Signs and Symptoms recorded PO intake 58% X 2 days Is patient on ventilator? No Is Patient Ambulatory and/or Out of Bed Yes REE-([place]-St. Jeor-ambulatory/OOB) [ 1931.475 [id number]] Kcal/Kg value to use for calculation 17 Approximate Energy Requirements Using 1605 kcal/Kg Calculation Used for Recommendations Kcal/kg Additional Notes Protein Needs: 92-100g (1.2-1. 3g/kg, 77kg adjBW) Fluid Needs: 1 ml/kcal Nutrition Intervention Change Diet Order: Continue current Add Supplement/Snack (indicate name/kcal Nepro 1 daily /protein ) Provides kCal: 425 Provides Protein (gm) 19 Goal #1 Meet at least 75% of calorie and protein needs via PO and ONS intakes Anticipated Discharge Needs: Renal diet Follow-Up By: 07/09/18 Additional Comments Follow for PO and ONS intakes
--- NOTE | 2018-07-09 14:00 | Progress Note ---
Assessment and Plan Patient just finished her Peritoneal dialysis.Patient awake.Patient says feeling better.Patient is on room air.O2 saturation 97% . No complaint of chest pain, shortness of breath or cough.Patient Obese. Having excessive day time sleepiness. Recommend sleep study as out patient.Venous doppler studies reported extensive left leg DVT.Patient is on Apixaban. - Patient Problems (1) NSTEMI (non-ST elevated myocardial infarction) Current Visit: Yes Status: Acute Plan to address problem: Management as per cardiology. (2) HTN (hypertension) Current Visit: Yes Status: Acute Plan to address problem: Management as per primary care. (3) Diabetes Current Visit: Yes Status: Chronic Plan to address problem: Mangement as per primary care. (4) ESRD on peritoneal dialysis Current Visit: Yes Status: Acute Plan to address problem: Management as per Nephrology. Patient is on peritoneal dialysis. (5) Elevated d-dimer Current Visit: Yes Status: Acute Plan to address problem: Perfusion lung scan reported low probability for pulmonary emboli. Venous doppler studies of legs reported extensive left leg DVT. (6) Obesity (BMI 30.0-34.9) Current Visit: Yes Status: Acute Plan to address problem: Diet and exercise to loose weight. Sleep study as out patient. (7) DVT (deep venous thrombosis) Current Visit: Yes Status: Acute Qualifiers: DVT location: lower extremity Chronicity: acute Plan to address problem: Patients venous doppler studies reported extensive left leg DVT. Patient is on Apixaban. Subjective Date of service: 07/09/18 Principal diagnosis: dvt Interval history: Patient just finished her Peritoneal dialysis.Patient awake.Patient says feeling better.Patient is on room air.O2 saturation 97% . No complaint of chest pain, shortness of breath or cough.Patient Obese. Having excessive day time sleepiness. Recommend sleep study as out patient.Venous doppler studies reported extensive left leg DVT.Patient is on Apixaban. Objective Vital Signs - 12hr 07/09/18 07/09/18 02:43 07:48 Temperature 98.1 F 99.1 F Pulse Rate 86 111 H Respiratory 17 18 Rate Blood Pressure 110/68 106/68 O2 Sat by Pulse 97 94 Oximetry Constitutional: no acute distress, alert Eyes: non-icteric ENT: oropharynx moist, other (mallampati 3) Neck: supple, no lymphadenopathy, no JVD, other (large neck circumference) Effort: normal Ascultation: Bilateral: diminished breath sounds, rhonchi (scant in bases) Percussion: Bilateral: not dull Cardiovascular: regular rate and rhythm, other (No R/M) Gastrointestinal: normoactive bowel sounds, soft, non-distended, other (No HSM, PD cathetr, clean dry site, mild lower abdominal tenderness, no rebound) Integumentary: normal Extremities: no cyanosis, no edema, pulses normal, no ischemia or petechiae Neurologic: normal mental status, non-focal exam (grossly), pupils equal and round, motor strength normal and Psychiatric: mood appropriate, affect normal CBC and BMP: 07/09/18 09:51 07/09/18 09:51 ABG, PT/INR, D-dimer: PT/INR, D-dimer PT 13.6 Sec. (12.2-14.9) 07/03/18 12:39 INR 0.98 (0.87-1.13) 07/03/18 12:39 D-Dimer > 12854 ng/mlDDU (0-234) H 06/28/18 22:26 Abnormal lab findings: Abnormal Labs 06/28/18 06/28/18 06/28/18 10:38 20:54 20:54 WBC 24.8 H RBC Hgb 16.6 H Hct 50.3 H MCV 107 H MCH 35 H RDW 15.6 H Plt Count Lymph % (Auto) Lymph # Baso # Seg Neutrophils % Seg Neuts % (Manual) 95.0 H Lymphocytes % (Manual) 3.0 L Nucleated RBC % Seg Neutrophils # Seg Neutrophils # Man 23.6 H Lymphocytes # (Manual) 0.7 L D-Dimer Heparin Anti-Xa Level Sodium 131 L Potassium Chloride 89.6 L Carbon Dioxide 19 L BUN 29 H Creatinine 9.3 H Glucose 174 H POC Glucose Lactic Acid Calcium ALT 5 L Troponin T 0.073 H C-Reactive Protein Albumin 3.2 L Triglycerides 194 H HDL Cholesterol 68 H Vitamin B12 Folate 06/28/18 06/29/18 06/29/18 22:26 12:18 13:30 WBC RBC Hgb Hct MCV MCH RDW Plt Count Lymph % (Auto) Lymph # Baso # Seg Neutrophils % Seg Neuts % (Manual) Lymphocytes % (Manual) Nucleated RBC % Seg Neutrophils # Seg Neutrophils # Man Lymphocytes # (Manual) D-Dimer > 58086 H Heparin Anti-Xa Level Sodium Potassium Chloride Carbon Dioxide BUN Creatinine Glucose POC Glucose 168 H Lactic Acid Calcium ALT Troponin T 0.073 H C-Reactive Protein Albumin Triglycerides HDL Cholesterol Vitamin B12 Folate 06/29/18 06/29/18 06/29/18 13:30 14:11 16:36 WBC 19.8 H RBC Hgb 14.7 H Hct 45.4 H MCV 108 H MCH 35 H RDW 15.9 H Plt Count Lymph % (Auto) Lymph # Baso # Seg Neutrophils % Seg Neuts % (Manual) Lymphocytes % (Manual) Nucleated RBC % Seg Neutrophils # Seg Neutrophils # Man Lymphocytes # (Manual) D-Dimer Heparin Anti-Xa Level Sodium 133 L Potassium Chloride 91.7 L Carbon Dioxide 20 L BUN 33 H Creatinine 9.9 H Glucose 196 H POC Glucose 165 H Lactic Acid Calcium ALT Troponin T C-Reactive Protein Albumin Triglycerides HDL Cholesterol Vitamin B12 Folate 06/29/18 06/29/18 06/30/18 20:37 22:01 04:49 WBC 14.8 H RBC Hgb Hct MCV 106 H MCH 35 H RDW 15.5 H Plt Count Lymph % (Auto) Lymph # Baso # Seg Neutrophils % Seg Neuts % (Manual) 90.0 H Lymphocytes % (Manual) 5.0 L Nucleated RBC % Seg Neutrophils # Seg Neutrophils # Man 13.3 H Lymphocytes # (Manual) 0.7 L D-Dimer Heparin Anti-Xa Level Sodium Potassium Chloride Carbon Dioxide BUN Creatinine Glucose POC Glucose 202 H Lactic Acid Calcium ALT Troponin T 0.077 H C-Reactive Protein Albumin Triglycerides HDL Cholesterol Vitamin B12 Folate 06/30/18 06/30/18 06/30/18 04:49 08:27 12:17 WBC RBC Hgb Hct MCV MCH RDW Plt Count Lymph % (Auto) Lymph # Baso # Seg Neutrophils % Seg Neuts % (Manual) Lymphocytes % (Manual) Nucleated RBC % Seg Neutrophils # Seg Neutrophils # Man Lymphocytes # (Manual) D-Dimer Heparin Anti-Xa Level Sodium 134 L Potassium 3.5 L Chloride 94.7 L Carbon Dioxide BUN 30 H Creatinine 8.8 H Glucose 182 H POC Glucose 170 H 145 H Lactic Acid Calcium 7.9 L ALT Troponin T C-Reactive Protein Albumin Triglycerides HDL Cholesterol Vitamin B12 Folate 06/30/18 06/30/18 07/01/18 16:44 22:06 07:21 WBC 11.8 H RBC 3.32 L Hgb Hct MCV 105 H MCH 35 H RDW 15.5 H Plt Count 125 L Lymph % (Auto) Lymph # Baso # Seg Neutrophils % Seg Neuts % (Manual) Lymphocytes % (Manual) Nucleated RBC % Seg Neutrophils # Seg Neutrophils # Man Lymphocytes # (Manual) D-Dimer Heparin Anti-Xa Level Sodium Potassium Chloride Carbon Dioxide BUN Creatinine Glucose POC Glucose 155 H 174 H Lactic Acid Calcium ALT Troponin T C-Reactive Protein Albumin Triglycerides HDL Cholesterol Vitamin B12 Folate 07/01/18 07/01/18 07/01/18 07:21 08:22 11:38 WBC RBC Hgb Hct MCV MCH RDW Plt Count Lymph % (Auto) Lymph # Baso # Seg Neutrophils % Seg Neuts % (Manual) Lymphocytes % (Manual) Nucleated RBC % Seg Neutrophils # Seg Neutrophils # Man Lymphocytes # (Manual) D-Dimer Heparin Anti-Xa Level Sodium 134 L Potassium Chloride 95.9 L Carbon Dioxide BUN 31 H Creatinine 8.4 H Glucose 151 H POC Glucose 117 H 166 H Lactic Acid Calcium 7.8 L ALT Troponin T C-Reactive Protein Albumin Triglycerides HDL Cholesterol Vitamin B12 Folate 07/01/18 07/01/18 07/01/18 13:32 13:32 16:27 WBC RBC Hgb Hct MCV MCH RDW Plt Count Lymph % (Auto) Lymph # Baso # Seg Neutrophils % Seg Neuts % (Manual) Lymphocytes % (Manual) Nucleated RBC % Seg Neutrophils # Seg Neutrophils # Man Lymphocytes # (Manual) D-Dimer Heparin Anti-Xa Level Sodium Potassium Chloride Carbon Dioxide BUN Creatinine Glucose POC Glucose 149 H Lactic Acid 2.20 H* Calcium ALT Troponin T C-Reactive Protein 7.40 H Albumin Triglycerides HDL Cholesterol Vitamin B12 Folate 07/01/18 07/01/18 07/02/18 19:35 21:36 05:22 WBC RBC Hgb Hct MCV MCH RDW Plt Count Lymph % (Auto) Lymph # Baso # Seg Neutrophils % Seg Neuts % (Manual) Lymphocytes % (Manual) Nucleated RBC % Seg Neutrophils # Seg Neutrophils # Man Lymphocytes # (Manual) D-Dimer Heparin Anti-Xa Level Sodium Potassium Chloride Carbon Dioxide BUN Creatinine Glucose POC Glucose 129 H Lactic Acid 2.60 H* 2.20 H* Calcium ALT Troponin T C-Reactive Protein Albumin Triglycerides HDL Cholesterol Vitamin B12 Folate 07/02/18 07/02/18 07/02/18 05:22 05:22 07:11 WBC 12.6 H RBC 3.51 L Hgb Hct MCV 105 H MCH 35 H RDW Plt Count 132 L Lymph % (Auto) Lymph # Baso # Seg Neutrophils % Seg Neuts % (Manual) 92.0 H Lymphocytes % (Manual) 2.0 L Nucleated RBC % Seg Neutrophils # Seg Neutrophils # Man 11.6 H Lymphocytes # (Manual) 0.3 L D-Dimer Heparin Anti-Xa Level Sodium 131 L Potassium 3.3 L Chloride 93.1 L Carbon Dioxide BUN 31 H Creatinine 7.5 H Glucose 228 H POC Glucose 215 H Lactic Acid Calcium 7.7 L ALT Troponin T C-Reactive Protein Albumin Triglycerides HDL Cholesterol Vitamin B12 Folate 07/02/18 07/02/18 07/03/18 15:35 21:56 10:56 WBC RBC Hgb Hct MCV MCH RDW Plt Count Lymph % (Auto) Lymph # Baso # Seg Neutrophils % Seg Neuts % (Manual) Lymphocytes % (Manual) Nucleated RBC % Seg Neutrophils # Seg Neutrophils # Man Lymphocytes # (Manual) D-Dimer Heparin Anti-Xa Level Sodium 130 L Potassium Chloride 91.6 L Carbon Dioxide BUN 33 H Creatinine 7.8 H Glucose POC Glucose 123 H 135 H Lactic Acid Calcium 7.7 L ALT Troponin T C-Reactive Protein Albumin Triglycerides HDL Cholesterol Vitamin B12 Folate 07/03/18 07/03/18 07/03/18 11:00 21:03 22:06 WBC 11.9 H RBC 3.59 L Hgb Hct MCV 103 H MCH 35 H RDW Plt Count Lymph % (Auto) Lymph # Baso # Seg Neutrophils % Seg Neuts % (Manual) 94.0 H Lymphocytes % (Manual) 5.0 L Nucleated RBC % Seg Neutrophils # Seg Neutrophils # Man 11.2 H Lymphocytes # (Manual) 0.6 L D-Dimer Heparin Anti-Xa Level 0.28 L Sodium Potassium Chloride Carbon Dioxide BUN Creatinine Glucose POC Glucose 177 H Lactic Acid Calcium ALT Troponin T C-Reactive Protein Albumin Triglycerides HDL Cholesterol Vitamin B12 Folate 07/04/18 07/04/18 07/04/18 01:08 05:22 05:22 WBC 13.1 H RBC Hgb Hct MCV 104 H MCH 35 H RDW Plt Count 139 L Lymph % (Auto) 5.0 L Lymph # 0.7 L Baso # 0.2 H Seg Neutrophils % 87.7 H Seg Neuts % (Manual) Lymphocytes % (Manual) Nucleated RBC % Seg Neutrophils # 11.5 H Seg Neutrophils # Man Lymphocytes # (Manual) D-Dimer Heparin Anti-Xa Level Sodium 132 L Potassium 3.1 L Chloride 92.4 L Carbon Dioxide BUN 30 H Creatinine 7.4 H Glucose 113 H POC Glucose 106 H Lactic Acid Calcium 7.8 L ALT Troponin T C-Reactive Protein Albumin Triglycerides HDL Cholesterol Vitamin B12 Folate 07/04/18 07/04/18 07/04/18 05:22 12:15 14:59 WBC RBC Hgb Hct MCV MCH RDW Plt Count Lymph % (Auto) Lymph # Baso # Seg Neutrophils % Seg Neuts % (Manual) Lymphocytes % (Manual) Nucleated RBC % Seg Neutrophils # Seg Neutrophils # Man Lymphocytes # (Manual) D-Dimer Heparin Anti-Xa Level 1.31 H 1.70 H Sodium Potassium Chloride Carbon Dioxide BUN Creatinine Glucose POC Glucose 200 H Lactic Acid Calcium ALT Troponin T C-Reactive Protein Albumin Triglycerides HDL Cholesterol Vitamin B12 Folate 07/04/18 07/05/18 07/05/18 20:56 06:17 06:17 WBC RBC 3.51 L Hgb Hct MCV 104 H MCH 35 H RDW Plt Count Lymph % (Auto) 7.8 L Lymph # 0.7 L Baso # Seg Neutrophils % 85.2 H Seg Neuts % (Manual) Lymphocytes % (Manual) Nucleated RBC % Seg Neutrophils # Seg Neutrophils # Man Lymphocytes # (Manual) D-Dimer Heparin Anti-Xa Level Sodium 132 L Potassium 3.1 L Chloride 92.7 L Carbon Dioxide BUN 29 H Creatinine 7.3 H Glucose 115 H POC Glucose 133 H Lactic Acid Calcium 7.9 L ALT Troponin T C-Reactive Protein Albumin Triglycerides HDL Cholesterol Vitamin B12 Folate 07/05/18 07/06/18 07/06/18 23:47 06:53 06:53 WBC RBC 3.47 L Hgb Hct MCV 104 H MCH 35 H RDW Plt Count Lymph % (Auto) Lymph # Baso # Seg Neutrophils % Seg Neuts % (Manual) 93.0 H Lymphocytes % (Manual) 2.0 L Nucleated RBC % Seg Neutrophils # Seg Neutrophils # Man 8.6 H Lymphocytes # (Manual) 0.2 L D-Dimer Heparin Anti-Xa Level Sodium 132 L Potassium 3.2 L Chloride 94.5 L Carbon Dioxide BUN 32 H Creatinine 8.7 H Glucose 106 H POC Glucose 112 H Lactic Acid Calcium 7.8 L ALT Troponin T C-Reactive Protein Albumin Triglycerides HDL Cholesterol Vitamin B12 Folate 07/06/18 07/06/18 07/07/18 16:23 22:56 07:56 WBC RBC Hgb Hct MCV MCH RDW Plt Count Lymph % (Auto) Lymph # Baso # Seg Neutrophils % Seg Neuts % (Manual) Lymphocytes % (Manual) Nucleated RBC % Seg Neutrophils # Seg Neutrophils # Man Lymphocytes # (Manual) D-Dimer Heparin Anti-Xa Level Sodium Potassium Chloride Carbon Dioxide BUN Creatinine Glucose POC Glucose 126 H 139 H 181 H Lactic Acid Calcium ALT Troponin T C-Reactive Protein Albumin Triglycerides HDL Cholesterol Vitamin B12 Folate 07/07/18 07/07/18 07/07/18 09:35 09:35 12:52 WBC RBC Hgb Hct MCV 105 H MCH 35 H RDW Plt Count Lymph % (Auto) 6.3 L Lymph # 0.6 L Baso # Seg Neutrophils % 87.9 H Seg Neuts % (Manual) Lymphocytes % (Manual) Nucleated RBC % Seg Neutrophils # 8.2 H Seg Neutrophils # Man Lymphocytes # (Manual) D-Dimer Heparin Anti-Xa Level Sodium 130 L Potassium 3.4 L Chloride 90.3 L Carbon Dioxide BUN 29 H Creatinine 8.0 H Glucose 201 H POC Glucose 161 H Lactic Acid Calcium 8.0 L ALT Troponin T C-Reactive Protein Albumin Triglycerides HDL Cholesterol Vitamin B12 Folate 07/07/18 07/08/18 07/08/18 21:56 05:19 05:19 WBC 12.7 H RBC Hgb Hct MCV 104 H MCH 35 H RDW Plt Count Lymph % (Auto) Lymph # Baso # Seg Neutrophils % Seg Neuts % (Manual) 92.0 H Lymphocytes % (Manual) 5.0 L Nucleated RBC % 1.0 H Seg Neutrophils # Seg Neutrophils # Man 11.7 H Lymphocytes # (Manual) 0.6 L D-Dimer Heparin Anti-Xa Level Sodium 134 L Potassium 3.4 L Chloride 93.6 L Carbon Dioxide BUN 30 H Creatinine 8.0 H Glucose 184 H POC Glucose 162 H Lactic Acid Calcium ALT Troponin T C-Reactive Protein Albumin Triglycerides HDL Cholesterol Vitamin B12 Folate 07/08/18 07/08/18 07/08/18 05:19 05:19 08:25 WBC RBC Hgb Hct MCV MCH RDW Plt Count Lymph % (Auto) Lymph # Baso # Seg Neutrophils % Seg Neuts % (Manual) Lymphocytes % (Manual) Nucleated RBC % Seg Neutrophils # Seg Neutrophils # Man Lymphocytes # (Manual) D-Dimer Heparin Anti-Xa Level Sodium Potassium Chloride Carbon Dioxide BUN Creatinine Glucose POC Glucose 200 H Lactic Acid Calcium ALT Troponin T C-Reactive Protein Albumin Triglycerides HDL Cholesterol Vitamin B12 1416 H Folate 2.39 L 07/08/18 07/08/18 07/08/18 11:48 16:14 21:53 WBC RBC Hgb Hct MCV MCH RDW Plt Count Lymph % (Auto) Lymph # Baso # Seg Neutrophils % Seg Neuts % (Manual) Lymphocytes % (Manual) Nucleated RBC % Seg Neutrophils # Seg Neutrophils # Man Lymphocytes # (Manual) D-Dimer Heparin Anti-Xa Level Sodium Potassium Chloride Carbon Dioxide BUN Creatinine Glucose POC Glucose 202 H 176 H 219 H Lactic Acid Calcium ALT Troponin T C-Reactive Protein Albumin Triglycerides HDL Cholesterol Vitamin B12 Folate 07/09/18 07/09/18 07/09/18 07:50 09:51 09:51 WBC 15.8 H RBC Hgb Hct 43.4 H MCV 105 H MCH 34 H RDW Plt Count Lymph % (Auto) Lymph # Baso # Seg Neutrophils % Seg Neuts % (Manual) 94.0 H Lymphocytes % (Manual) 3.0 L Nucleated RBC % 1.0 H Seg Neutrophils # Seg Neutrophils # Man 14.9 H Lymphocytes # (Manual) 0.5 L D-Dimer Heparin Anti-Xa Level Sodium 135 L Potassium Chloride 95.5 L Carbon Dioxide BUN 29 H Creatinine 8.4 H Glucose 204 H POC Glucose 163 H Lactic Acid Calcium ALT Troponin T C-Reactive Protein Albumin Triglycerides HDL Cholesterol Vitamin B12 Folate Chest x-ray: report reviewed (Reported negative chest.), image reviewed Allied health notes reviewed: nursing
[2018-07-09] MEDS: LIDODERM 5% TD SCH (14:20)
[2018-07-10] MEDS: DIANEAL LOW CALCIUM W/2.5% DEXTROSE IP SCH ×4 (05:49→18:39)
[2018-07-10 06:03] LABS: Hematocrit 42.4 % (30.3-42.9); Hemoglobin 13.8 gm/dl (10.1-14.3); Mean Corpuscular HGB Conc 33 % (30-34); Mean Corpuscular Volume 105 fl (79-97); Platelet Count 295 K/mm3 (140-440); Red Blood Count 4.02 M/mm3 (3.65-5.03); Red Cell Distribution Width 14.9 % (13.2-15.2)
[2018-07-10 07:19] LABS: BUN/Creatinine Ratio TNR; Blood Urea Nitrogen TNR mg/dL (7-17); Calcium TNR mg/dL (8.4-10.2); Hemolysis Index TNR
--- NOTE | 2018-07-10 07:37 | Hem/Onc Progress Note ---
Assessment and Plan 1. Left leg deep venous thrombosis. The patient was on heparin drip. The patient is on peritoneal dialysis. The dose of Eliquis or any direct thrombin inhibitors or other anticoagulation monitoring may become challenging. I will discuss with other team members regarding the dosage. The question arises if a lower dose of Eliquis is sufficient. 2. MCV elevated. We will investigate. 3. Elevated D-dimers. 4. History of renal failure, on peritoneal dialysis. 5. History of hypertension. She was hypotensive at admission. 6. History of diabetes. 7. I will follow the patient during inpatient stay and then in the clinic setting for anticoagulation management. Option of Coumadin is also available but that would involve monitoring. 07/05 - d/w dr cartagena - pharmacy to help reg NOAC - ? eliquis 2.5 q 12? 07/06 - pharmacy has placed pt on 5 mg q 12 07/08 - pt on eliquis - d/w dr noyola - Placement pending gets PD 07/09 - pt had fever on eliquis for left leg dvt. h/o abdo discomfort - on and off 07/10/2018 DVT - on eliquis c/o abdo discomfort - d/w dr andrade - abdo elevated MCV - low folate - replace ESRD on PD h/o fever - Patient Problems (1) DVT (deep venous thrombosis) Current Visit: Yes Status: Acute Qualifiers: DVT location: lower extremity Chronicity: acute Subjective Date of service: 07/10/18 Principal diagnosis: dvt leg Interval history: c/o abdo discomfort - left of umblicus area Objective - Constitutional Vitals: Last Vital Signs Temp 98.9 F 07/10/18 02:22 Pulse 98 H 07/09/18 22:00 Resp 20 07/10/18 02:22 BP 96/54 07/10/18 02:22 Pulse Ox 97 07/09/18 14:17 Pain Intensity (0-10): 0/10 (abdo) General appearance: no acute distress Performance status: 3-limited selfcare - EENT Eyes: EOM intact ENT: clear oral mucosa Lymph node exam: negative cervical - Neck Neck: normal ROM - Respiratory Respiratory effort: Positive: normal Respiratory: bilateral: CTA - Cardiovascular Heart Sounds: Present: S1 & S2 Extremity abnormal: edema - Gastrointestinal General gastrointestinal: Present: soft, other (HD cath) Rectal Exam: deferred - Genitourinary Female genitourinary: Present: deferred - Integumentary Integumentary: warm - Musculoskeletal Musculoskeletal: strength equal bilaterally - Neurologic Neurologic: moves all extremities - Labs Lab Results: Laboratory Results - last 24 hr 07/09/18 07/09/18 07/09/18 07:50 09:51 09:51 WBC 15.8 H RBC 4.13 Hgb 14.1 Hct 43.4 H MCV 105 H MCH 34 H MCHC 32 RDW 14.4 Plt Count 279 Add Manual Diff Complete Total Counted 100 Seg Neutrophils % News Assistant Seg Neuts % (Manual) 94.0 H Band Neutrophils % 0 Lymphocytes % (Manual) 3.0 L Reactive Lymphs % (Man) 0 Monocytes % (Manual) 3.0 Eosinophils % (Manual) 0 Basophils % (Manual) 0 Metamyelocytes % 0 Myelocytes % 0 Promyelocytes % 0 Blast Cells % 0 Nucleated RBC % 1.0 H Seg Neutrophils # Man 14.9 H Band Neutrophils # 0.0 Lymphocytes # (Manual) 0.5 L Abs React Lymphs (Man) 0.0 Monocytes # (Manual) 0.5 Eosinophils # (Manual) 0.0 Basophils # (Manual) 0.0 Metamyelocytes # 0.0 Myelocytes # 0.0 Promyelocytes # 0.0 Blast Cells # 0.0 WBC Morphology Not Reportable Hypersegmented Neuts Not Reportable Hyposegmented Neuts Not Reportable Hypogranular Neuts Not Reportable Smudge Cells Not Reportable Toxic Granulation Not Reportable Toxic Vacuolation Not Reportable Dohle Bodies Not Reportable Pelger-Huet Anomaly Not Reportable Nomi Rods Not Reportable Platelet Estimate Consistent w auto Clumped Platelets Not Reportable Plt Clumps, EDTA Not Reportable Large Platelets Not Reportable Giant Platelets Few Platelet Satelliting Not Reportable Plt Morphology Comment Not Reportable RBC Morphology Normal Dimorphic RBCs Not Reportable Polychromasia Not Reportable Hypochromasia Not Reportable Poikilocytosis Not Reportable Anisocytosis Not Reportable Microcytosis Not Reportable Macrocytosis Not Reportable Spherocytes Not Reportable Pappenheimer Bodies Not Reportable Sickle Cells Not Reportable Target Cells Not Reportable Tear Drop Cells Not Reportable Ovalocytes Not Reportable Helmet Cells Not Reportable Barnhart-Bailey Bodies Not Reportable Rohwer Rings Not Reportable [place] Cells Not Reportable Bite Cells Not Reportable Crenated Cell Not Reportable Elliptocytes Not Reportable Acanthocytes (Spur) Not Reportable Rouleaux Not Reportable Hemoglobin C Crystals Not Reportable Schistocytes Not Reportable Malaria parasites Not Reportable Navneet Bodies Not Reportable Hem Pathologist Commnt No Sodium 135 L Potassium 3.7 Chloride 95.5 L Carbon Dioxide 24 Anion Gap 19 BUN 29 H Creatinine 8.4 H Estimated GFR 6 BUN/Creatinine Ratio 3 Glucose 204 H POC Glucose 163 H Calcium 8.6 07/09/18 07/09/18 07/09/18 11:50 18:47 22:16 WBC RBC Hgb Hct MCV MCH MCHC RDW Plt Count Add Manual Diff Total Counted Seg Neutrophils % Seg Neuts % (Manual) Band Neutrophils % Lymphocytes % (Manual) Reactive Lymphs % (Man) Monocytes % (Manual) Eosinophils % (Manual) Basophils % (Manual) Metamyelocytes % Myelocytes % Promyelocytes % Blast Cells % Nucleated RBC % Seg Neutrophils # Man Band Neutrophils # Lymphocytes # (Manual) Abs React Lymphs (Man) Monocytes # (Manual) Eosinophils # (Manual) Basophils # (Manual) Metamyelocytes # Myelocytes # Promyelocytes # Blast Cells # WBC Morphology Hypersegmented Neuts Hyposegmented Neuts Hypogranular Neuts Smudge Cells Toxic Granulation Toxic Vacuolation Dohle Bodies Pelger-Huet Anomaly Nomi Rods Platelet Estimate Clumped Platelets Plt Clumps, EDTA Large Platelets Giant Platelets Platelet Satelliting Plt Morphology Comment RBC Morphology Dimorphic RBCs Polychromasia Hypochromasia Poikilocytosis Anisocytosis Microcytosis Macrocytosis Spherocytes Pappenheimer Bodies Sickle Cells Target Cells Tear Drop Cells Ovalocytes Helmet Cells Barnhart-Bailey Bodies Rohwer Rings [place] Cells Bite Cells Crenated Cell Elliptocytes Acanthocytes (Spur) Rouleaux Hemoglobin C Crystals Schistocytes Malaria parasites Navneet Bodies Hem Pathologist Commnt Sodium Potassium Chloride Carbon Dioxide Anion Gap BUN Creatinine Estimated GFR BUN/Creatinine Ratio Glucose POC Glucose 156 H 176 H 189 H Calcium 07/10/18 07/10/18 05:35 05:35 WBC 17.9 H RBC 4.02 Hgb 13.8 Hct 42.4 MCV 105 H MCH 34 H MCHC 33 RDW 14.9 Plt Count 295 Add Manual Diff Total Counted Seg Neutrophils % News Assistant Seg Neuts % (Manual) Band Neutrophils % Lymphocytes % (Manual) Reactive Lymphs % (Man) Monocytes % (Manual) Eosinophils % (Manual) Basophils % (Manual) Metamyelocytes % Myelocytes % Promyelocytes % Blast Cells % Nucleated RBC % Seg Neutrophils # Man Band Neutrophils # Lymphocytes # (Manual) Abs React Lymphs (Man) Monocytes # (Manual) Eosinophils # (Manual) Basophils # (Manual) Metamyelocytes # Myelocytes # Promyelocytes # Blast Cells # WBC Morphology Hypersegmented Neuts Hyposegmented Neuts Hypogranular Neuts Smudge Cells Toxic Granulation Toxic Vacuolation Dohle Bodies Pelger-Huet Anomaly Nomi Rods Platelet Estimate Clumped Platelets Plt Clumps, EDTA Large Platelets Giant Platelets Platelet Satelliting Plt Morphology Comment RBC Morphology Dimorphic RBCs Polychromasia Hypochromasia Poikilocytosis Anisocytosis Microcytosis Macrocytosis Spherocytes Pappenheimer Bodies Sickle Cells Target Cells Tear Drop Cells Ovalocytes Helmet Cells Barnhart-Bailey Bodies Rohwer Rings [place] Cells Bite Cells Crenated Cell Elliptocytes Acanthocytes (Spur) Rouleaux Hemoglobin C Crystals Schistocytes Malaria parasites Navneet Bodies Hem Pathologist Commnt Sodium TNR Potassium TNR Chloride TNR Carbon Dioxide TNR Anion Gap TNR BUN TNR Creatinine TNR Estimated GFR TNR BUN/Creatinine Ratio TNR Glucose TNR POC Glucose Calcium TNR Medications & Allergies - Medications Allergies/Adverse Reactions: Allergies No Known Allergies Allergy (Verified 08/18/14 08:52) Home Medications: Home Medications Medication Instructions Recorded Confirmed Last Taken Type Aspirin [Aspirin BABY CHEW TAB] 81 mg PO QDAY #30 08/19/14 06/29/18 06/23/15 Rx Calcitriol [Rocaltrol] 0.5 mcg PO QDAY 06/29/18 06/29/18 Unknown History Potassium Chloride [Klor-Con M20] 20 meq PO DAILY 06/29/18 06/29/18 Unknown History Sevelamer Carbonate 1,600 mg PO TID 06/29/18 06/29/18 Unknown History Simvastatin [Zocor] 20 mg PO DAILY 06/29/18 06/29/18 Unknown History Active Medications: Generic Name Dose Route Start Last Admin Trade Name Freq PRN Reason Stop Dose Admin Apixaban 5 mg 07/04/18 16:00 07/09/18 21:37 Eliquis PO 5 mg Q12HR DIANE Administration Protocol Aspirin 81 mg 06/29/18 13:00 07/09/18 10:45 Baby Aspirin PO 81 mg QDAY DIANE Administration Atorvastatin Calcium 40 mg 06/29/18 22:00 07/09/18 21:37 Lipitor PO 40 mg QHS DIANE Administration Calcitriol 0.5 mcg 06/29/18 13:00 07/09/18 10:43 Rocaltrol PO 0.5 mcg QDAY DIANE Administration Docusate Sodium 100 mg 07/02/18 10:00 07/09/18 21:37 Colace PO 100 mg BID DIANE Administration Insulin Human Lispro 0 unit 06/29/18 22:00 07/09/18 23:07 Humalog SUB-Q 2 unit ACHS DIANE Administration Protocol Lidocaine 1 each 06/29/18 13:00 07/09/18 14:20 Lidoderm 5% TD 1 each QDAY DIANE Administration Midodrine 10 mg 07/01/18 14:00 07/09/18 21:37 Proamatine PO 10 mg TID DIANE Administration Morphine Sulfate 2 mg 07/08/18 14:51 07/08/18 16:32 Morphine IV 2 mg Q4H PRN Administration Pain, Moderate (4-6) Pantoprazole Sodium 40 mg 07/08/18 10:00 07/09/18 10:45 Protonix PO 40 mg QDAY DIANE Administration Peritoneal Dialysis Solution 2,000 ml 07/06/18 14:00 07/10/18 05:49 Dianeal Low Calcium W/2.5% Dextrose IP 2,000 ml 0600,1000,1400,1800 DIANE Administration Polyethylene Glycol 17 gm 07/02/18 10:00 07/09/18 10:44 Miralax 3350 PO 17 gm QDAY DIANE Administration Sevelamer Carbonate 1,600 mg 06/29/18 12:00 07/09/18 18:37 Renvela PO 1,600 mg TIDWM DIANE Administration
[2018-07-10] MEDS: HumaLOG SUB-Q SCH ×4 (08:00→22:50)
[2018-07-10 08:29] LABS: Basophils % (Manual) 0 % (0.0-1.8); Giant Platelets Few; Platelet Estimate Consistent w Auto; RBC Morphology Normal; Total Cells Counted 100
--- NOTE | 2018-07-10 09:15 | Discharge Summary ---
Providers - Providers Date of Admission: 06/29/18 09:13 Date of discharge: 07/10/18 Attending physician: XIANG SMART 06/29/18 00:05 Consult to Physician [CONS] Stat Comment: Dr. Lucia spoke with Dr. Crawford @ [phone] Consulting Provider: FEROZ CRAWFORD Physician Instructions: Reason For Exam: esrd 06/29/18 07:56 Consult to Physician [CONS] Routine Comment: DR BARNETT NOTIFIED [id number] Consulting Provider: ELSY BARNETT Physician Instructions: Reason For Exam: IV access 06/29/18 09:15 Consult to Physician [CONS] Routine Comment: Consulting Provider: LAWANDA MCELROY Physician Instructions: Reason For Exam: septic shock 06/29/18 09:17 Consult to Physician [CONS] Routine Comment: dr crawford notified Consulting Provider: ISMA DAVILA Physician Instructions: Reason For Exam: esrd 07/03/18 11:02 Consult to Physician [CONS] Routine Comment: Consulting Provider: JENNA MOTLEY Physician Instructions: Reason For Exam: DVT lower ext 07/08/18 13:33 Consult to Dietitian/Nutrition [CONS] Routine Physician Instructions: Reason For Exam: Reason for Consult: Poor oral intake Primary care physician: JENNYFER OLVERA Hospitalization Reason for admission: fall Condition: Stable Hospital course: Patient is a 67-year-old female past medical history of end-stage renal disease on peritoneal dialysis, hypertension hyperlipidemia, diabetes mellitus type 2 on diet control, presented to ER by EMS after having a fall around 9 AM in the morning but she had no loss of consciousness or hit her head. She was sitting on bed and accidentally "slid to ground". She was unable to get up from the bed as she was feeling very weak in her legs. Her family called emergency services to break into her house around 5pm. She was then brought to the ER for further evaluation and management . She noted to have highly elevated d-dimer, elevated white count. In the ED, patient was hypotensive w/ WBC 24.8. CTA chest was unremarkable. V/Q scan was also low prob PE. She denied fever, chills, PD fluid has been clear. She was placed on Levophed, given IV Rocephin and admitted. she was diagnosed with SIRS, hypotension. She improved on Levophed was weaned off. She had swelling of the legs on both ultrasound confirmed a DVT of left lower extremity for which she has been . However patient has failure to thrive, debility, she feels very weak and unable to stand. I discussed with case management she started working on acute rehabilitation placement. The patient developed fever and leukocytosis on 07/08/18. Fever resolved but leukocytosis worsened. Antibiotics restarted and blood cultures thus far negative. ID consultation. Disposition: [id number] TO HOME OR SELFCARE Time spent for discharge: 32 Exam - Constitutional Vitals: Temp Pulse Resp BP Pulse Ox 98.9 F 98 H 20 96/54 97 07/10/18 02:22 07/09/18 22:00 07/10/18 02:22 07/10/18 02:22 07/09/18 14:17 Plan Follow up with: JENNYFER OLVERA MD [Primary Care Provider] - 3-5 Days
--- NOTE | 2018-07-10 09:20 | Progress Note ---
Assessment and Plan Assessment and plan: SIRS without organ dysfunction - suspected sepsis on admission, ruled out - Antibiotics were discontinued - No infiltrates noted on CTA chest/chest x-ray/VQ scan, patient does not make urine - recent fever resolved but leukocytosis worse now, blood cx NGTD x 24 hours, consult ID Hypotension - Patient was placed on levophed, now weaned off - cont midodrine for now HLD, on statin ESRD on PD, Nephrology following Diabetes type 2, diet controlled, SSI PLACED as needed ACHS Elevated troponin/NSTEMI type 2 - Cardiology following - Stress test negative DVT left lower ext. Cont. Eliquis. Debility PT evaluation done patient unable to stand, and she lives alone. discussed with case management Patient may need acute rehab Dispo: Await TANESHA History Interval history: Patient is a 67-year-old female past medical history of end-stage renal disease on peritoneal dialysis, hypertension hyperlipidemia, diabetes mellitus type 2 on diet control, presented to ER by EMS after having a fall around 9 AM in the morning but she had no loss of consciousness or hit her head. She was sitting on bed and accidentally "slid to ground". She was unable to get up from the bed as she was feeling very weak in her legs. Her family called emergency services to break into her house around 5pm. She was then brought to the ER for further evaluation and management . She noted to have highly elevated d-dimer, elevated white count. In the ED, patient was hypotensive w/ WBC 24.8. CTA chest was unremarkable. V/Q scan was also low prob PE. She denied fever, chills, PD fluid has been clear. She was placed on Levophed, given IV Rocephin and admitted. she was diagnosed with SIRS, hypotension. She improved on Levophed was weaned off. She had swelling of the legs on both ultrasound confirmed a DVT of left lower extremity for which she has been . However patient has failure to thrive, debility, she feels very weak and unable to stand. I discussed with case manag ement she started working on acute rehabilitation placement. The patient developed fever and leukocytosis on 07/08/18. Fever resolved but leukocytosis worsened. Antibiotics restarted and blood cultures thus far negative. ID consultation. No issues overnight. Hospitalist Physical - Constitutional Vitals: Temp Pulse Resp BP Pulse Ox 98.9 F 98 H 20 96/54 97 07/10/18 02:22 07/09/18 22:00 07/10/18 02:22 07/10/18 02:22 07/09/18 14:17 General appearance: Present: no acute distress, obese - EENT Eyes: Present: PERRL, EOM intact ENT: hearing intact, clear oral mucosa, dentition normal - Neck Neck: Present: supple, normal ROM - Respiratory Respiratory effort: normal Respiratory: bilateral: CTA - Cardiovascular Rhythm: regular Heart Sounds: Present: S1 & S2. Absent: gallop, rub - Extremities Extremities: no ischemia, No edema, Full ROM - Abdominal General gastrointestinal: soft, non-tender, non-distended, normal bowel sounds - Integumentary Integumentary: Present: clear, warm, dry - Neurologic Neurologic: CNII-XII intact, moves all extremities Results - Labs CBC & Chem 7: 07/10/18 05:35 07/10/18 05:35 Labs: Laboratory Last Values WBC 17.9 K/mm3 (4.5-11.0) H 07/10/18 05:35 RBC 4.02 M/mm3 (3.65-5.03) 07/10/18 05:35 Hgb 13.8 gm/dl (10.1-14.3) 07/10/18 05:35 Hct 42.4 % (30.3-42.9) 07/10/18 05:35 MCV 105 fl (79-97) H 07/10/18 05:35 MCH 34 pg (28-32) H 07/10/18 05:35 MCHC 33 % (30-34) 07/10/18 05:35 RDW 14.9 % (13.2-15.2) 07/10/18 05:35 Plt Count 295 K/mm3 (140-440) 07/10/18 05:35 Lymph % (Auto) 6.3 % (13.4-35.0) L 07/07/18 09:35 [place] % (Auto) 5.4 % (0.0-7.3) 07/07/18 09:35 Eos % (Auto) 0.3 % (0.0-4.3) 07/07/18 09:35 Baso % (Auto) 0.1 % (0.0-1.8) 07/07/18 09:35 Lymph # 0.6 K/mm3 (1.2-5.4) L 07/07/18 09:35 [place] # 0.5 K/mm3 (0.0-0.8) 07/07/18 09:35 Eos # 0.0 K/mm3 (0.0-0.4) 07/07/18 09:35 Baso # 0.0 K/mm3 (0.0-0.1) 07/07/18 09:35 Add Manual Diff Complete 07/10/18 05:35 Total Counted 100 07/10/18 05:35 Seg Neutrophils % Flight Engineer Inspector 07/10/18 05:35 Seg Neuts % (Manual) 87.0 % (40.0-70.0) H 07/10/18 05:35 Band Neutrophils % 0 % 07/10/18 05:35 Lymphocytes % (Manual) 6.0 % (13.4-35.0) L 07/10/18 05:35 Reactive Lymphs % (Man) 0 % 07/10/18 05:35 Monocytes % (Manual) 6.0 % (0.0-7.3) 07/10/18 05:35 Eosinophils % (Manual) 1.0 % (0.0-4.3) 07/10/18 05:35 Basophils % (Manual) 0 % (0.0-1.8) 07/10/18 05:35 Metamyelocytes % 0 % 07/10/18 05:35 Myelocytes % 0 % 07/10/18 05:35 Promyelocytes % 0 % 07/10/18 05:35 Blast Cells % 0 % 07/10/18 05:35 Nucleated RBC % Not Reportable 07/10/18 05:35 Seg Neutrophils # 8.2 K/mm3 (1.8-7.7) H 07/07/18 09:35 Seg Neutrophils # Man 15.6 K/mm3 (1.8-7.7) H 07/10/18 05:35 Band Neutrophils # 0.0 K/mm3 07/10/18 05:35 Lymphocytes # (Manual) 1.1 K/mm3 (1.2-5.4) L 07/10/18 05:35 Abs React Lymphs (Man) 0.0 K/mm3 07/10/18 05:35 Monocytes # (Manual) 1.1 K/mm3 (0.0-0.8) H 07/10/18 05:35 Eosinophils # (Manual) 0.2 K/mm3 (0.0-0.4) 07/10/18 05:35 Basophils # (Manual) 0.0 K/mm3 (0.0-0.1) 07/10/18 05:35 Metamyelocytes # 0.0 K/mm3 07/10/18 05:35 Myelocytes # 0.0 K/mm3 07/10/18 05:35 Promyelocytes # 0.0 K/mm3 07/10/18 05:35 Blast Cells # 0.0 K/mm3 07/10/18 05:35 WBC Morphology Not Reportable 07/10/18 05:35 Hypersegmented Neuts Not Reportable 07/10/18 05:35 Hyposegmented Neuts Not Reportable 07/10/18 05:35 Hypogranular Neuts Not Reportable 07/10/18 05:35 Smudge Cells Not Reportable 07/10/18 05:35 Toxic Granulation Not Reportable 07/10/18 05:35 Toxic Vacuolation Not Reportable 07/10/18 05:35 Dohle Bodies Not Reportable 07/10/18 05:35 Pelger-Huet Anomaly Not Reportable 07/10/18 05:35 Nomi Rods Not Reportable 07/10/18 05:35 Platelet Estimate Consistent w auto 07/10/18 05:35 Clumped Platelets Not Reportable 07/10/18 05:35 Plt Clumps, EDTA Not Reportable 07/10/18 05:35 Large Platelets Not Reportable 07/10/18 05:35 Giant Platelets Few 07/10/18 05:35 Platelet Satelliting Not Reportable 07/10/18 05:35 Plt Morphology Comment Not Reportable 07/10/18 05:35 RBC Morphology Normal 07/10/18 05:35 Dimorphic RBCs Not Reportable 07/10/18 05:35 Polychromasia Not Reportable 07/10/18 05:35 Hypochromasia Not Reportable 07/10/18 05:35 Poikilocytosis Not Reportable 07/10/18 05:35 Anisocytosis Not Reportable 07/10/18 05:35 Microcytosis Not Reportable 07/10/18 05:35 Macrocytosis Not Reportable 07/10/18 05:35 Spherocytes Not Reportable 07/10/18 05:35 Pappenheimer Bodies Not Reportable 07/10/18 05:35 Sickle Cells Not Reportable 07/10/18 05:35 Target Cells Not Reportable 07/10/18 05:35 Tear Drop Cells Not Reportable 07/10/18 05:35 Ovalocytes Not Reportable 07/10/18 05:35 Helmet Cells Not Reportable 07/10/18 05:35 Barnhart-[place] Bodies Not Reportable 07/10/18 05:35 [place] Rings Not Reportable 07/10/18 05:35 Edgar Cells Not Reportable 07/10/18 05:35 Bite Cells Not Reportable 07/10/18 05:35 Crenated Cell Not Reportable 07/10/18 05:35 Elliptocytes Not Reportable 07/10/18 05:35 Acanthocytes (Spur) Not Reportable 07/10/18 05:35 Rouleaux Not Reportable 07/10/18 05:35 Hemoglobin C Crystals Not Reportable 07/10/18 05:35 Schistocytes Not Reportable 07/10/18 05:35 Malaria parasites Not Reportable 07/10/18 05:35 Navneet Bodies Not Reportable 07/10/18 05:35 Hem Pathologist Commnt No 07/10/18 05:35 PT 13.6 Sec. (12.2-14.9) 07/03/18 12:39 INR 0.98 (0.87-1.13) 07/03/18 12:39 APTT 34.1 Sec. (24.2-36.6) 07/03/18 12:39 D-Dimer > 78708 ng/mlDDU (0-234) H 06/28/18 22:26 Heparin Anti-Xa Level 1.70 U.I./ml (0.3-0.7) H 07/04/18 14:59 Sodium TNR 07/10/18 05:35 Potassium TNR 07/10/18 05:35 Chloride TNR 07/10/18 05:35 Carbon Dioxide TNR 07/10/18 05:35 Anion Gap TNR 07/10/18 05:35 BUN TNR 07/10/18 05:35 Creatinine TNR 07/10/18 05:35 Estimated GFR TNR 07/10/18 05:35 BUN/Creatinine Ratio TNR 07/10/18 05:35 Glucose TNR 07/10/18 05:35 POC Glucose 189 (70-105) H 07/09/18 22:16 Lactic Acid 2.20 mmol/L (0.7-2.0) H* 07/02/18 05:22 Calcium TNR 07/10/18 05:35 Total Bilirubin 0.40 mg/dL (0.1-1.2) 06/28/18 20:54 AST 25 units/L (5-40) 06/28/18 20:54 ALT 5 units/L (7-56) L 06/28/18 20:54 Alkaline Phosphatase 88 units/L (35-129) 06/28/18 20:54 Total Creatine Kinase 118 units/L (30-135) 06/29/18 20:37 Troponin T 0.077 ng/mL (0.00-0.029) H 06/29/18 20:37 C-Reactive Protein 7.40 mg/dL (0.00-1.30) H 07/01/18 13:32 Total Protein 7.4 g/dL (6.3-8.2) 06/28/18 20:54 Albumin 3.2 g/dL (3.9-5) L 06/28/18 20:54 Albumin/Globulin Ratio 0.8 % 06/28/18 20:54 Triglycerides 194 mg/dL (2-149) H 06/28/18 10:38 Cholesterol 167 mg/dL (50-199) 06/28/18 10:38 LDL Cholesterol Direct 61 mg/dL (50-130) 06/28/18 10:38 HDL Cholesterol 68 mg/dL (40-59) H 06/28/18 10:38 Cholesterol/HDL Ratio 2.45 % 06/28/18 10:38 Vitamin B12 1416 pg/mL (211-911) H 07/08/18 05:19 Folate 2.39 ng/mL (7.3-26.0) L 07/08/18 05:19 Active Medications - Current Medications Current Medications: Generic Name Dose Route Start Last Admin Trade Name Freq PRN Reason Stop Dose Admin Apixaban 5 mg 07/04/18 16:00 07/09/18 21:37 Eliquis PO 5 mg Q12HR DIANE Administration Protocol Aspirin 81 mg 06/29/18 13:00 07/09/18 10:45 Baby Aspirin PO 81 mg QDAY DIANE Administration Atorvastatin Calcium 40 mg 06/29/18 22:00 07/09/18 21:37 Lipitor PO 40 mg QHS DIANE Administration Calcitriol 0.5 mcg 06/29/18 13:00 07/09/18 10:43 Rocaltrol PO 0.5 mcg QDAY DIANE Administration Docusate Sodium 100 mg 07/02/18 10:00 07/09/18 21:37 Colace PO 100 mg BID DIANE Administration Insulin Human Lispro 0 unit 06/29/18 22:00 07/09/18 23:07 Humalog SUB-Q 2 unit ACHS DIANE Administration Protocol Lidocaine 1 each 06/29/18 13:00 07/09/18 14:20 Lidoderm 5% TD 1 each QDAY DIANE Administration Midodrine 10 mg 07/01/18 14:00 07/09/18 21:37 Proamatine PO 10 mg TID DIANE Administration Morphine Sulfate 2 mg 07/08/18 14:51 07/08/18 16:32 Morphine IV 2 mg Q4H PRN Administration Pain, Moderate (4-6) Pantoprazole Sodium 40 mg 07/08/18 10:00 07/09/18 10:45 Protonix PO 40 mg QDAY DIANE Administration Peritoneal Dialysis Solution 2,000 ml 07/06/18 14:00 07/10/18 05:49 Dianeal Low Calcium W/2.5% Dextrose IP 2,000 ml 0600,1000,1400,1800 DIANE Administration Polyethylene Glycol 17 gm 07/02/18 10:00 07/09/18 10:44 Miralax 3350 PO 17 gm QDAY DIANE Administration Sevelamer Carbonate 1,600 mg 06/29/18 12:00 07/09/18 18:37 Renvela PO 1,600 mg TIDWM DIANE Administration Nutrition/Malnutrition Assess - Dietary Evaluation Nutrition/Malnutrition Findings: Nutrition Notes Start: 07/05/18 14:49 Freq: Status: Active Protocol: Document 07/09/18 14:17 EB (Rec: 07/09/18 14:32 EB [id number]) Co-Sign 07/09/18 14:17 RM Nutrition Notes Initial or Follow up Reassessment Current Diagnosis Diabetes Other Pertinent Diagnosis ESRD on PD, Possible sepsis Current Diet Renal,Cardiac with Nepro daily Labs/Tests Reviewed Pertinent Medications Reviewed Height 5 ft 6 in Weight 102.5 kg [place] Body Weight (kg) 59.09 BMI 36.4 Weight change and time frame Wt increase likely due to fluid change Subjective/Other Information Pt received PD earlier today. Pt resting in bed and states she ate about 50% of her breakfast and meals yesterday. She had not touched her lunch that was delivered this afternoon. Pt reports fair appetite, but says she really enjoys and drinks her ONS daily. Percent of energy/protein needs met: 86%/100% Burn Absent Trauma Absent Current % PO Fair (50-74%) #1 Nutrition Diagnosis Inadequate oral intake As Evidenced by Signs and Symptoms pt meeting 86% and 100% of edis and pro needs, respectively Diagnosis Progress(for reassessment Resolved documentation) Is patient on ventilator? No Is Patient Ambulatory and/or Out of Bed Yes REE-([place]-St. Jeor-ambulatory/OOB) [ NUTR.[id number]] Kcal/Kg value to use for calculation 17 Approximate Energy Requirements Using 1743 kcal/Kg Calculation Used for Recommendations Kcal/kg Additional Notes Protein Needs: 92-100g (1.2-1. 3g/kg, 77kg adjBW) Fluid Needs: 1 ml/kcal Nutrition Intervention Change Diet Order: Continue current Add Supplement/Snack (indicate name/kcal Nepro 1 daily /protein ) Provides kCal: 425 Provides Protein (gm) 19 Goal #1 Continue to meet at least 75% of calorie and protein needs via PO and ONS intakes Anticipated Discharge Needs: Renal diet Follow-Up By: 07/16/18 Additional Comments F/u: PO and ONS intakes
--- NOTE | 2018-07-10 09:21 | Progress Note ---
Assessment and Plan Impression * End-stage renal disease * Hypertension * Diabetes * Abdominal pain * Hypokalemia * Extrusion of external cuff off her PD catheter Recommendations * CAPD going well. Continue current prescriptions. Patient ultrafiltering adequately * Previous PD fluid did show any evidence of peritonitis * She has extrusion of the external cuff of the PD catheter. Will need to follow up with her PD surgeon. May be done as an outpatient * Hold Procrit for now as her hemoglobin is 13.5 * Replace potassium * Patient however continues to have abdominal discomfort and has worsening leukocytosis. .Repeat PD fluid for cell count ordered. Results pending Subjective Date of service: 07/10/18 Principal diagnosis: dvt Interval history: Patient continues to complain of some abdominal pain. States that her PD fluid has been clear. Denies any shortness of breath. Objective - Vital Signs Vital signs: Vital Signs - 12hr 07/09/18 07/10/18 22:00 02:22 Temperature 98.9 F Pulse Rate [ 98 H Apical] Respiratory 17 20 Rate Blood Pressure 96/54 - General Appearance General appearance: well-developed, well-nourished, appears stated age EENT: PERRL, mucous membranes moist Neck: no JVD, no thyromegaly, no carotid bruit, supple Respiratory: Present: Clear to Ascultation Cardiology: regular, normal heart rate Gastrointestinal: normal, tenderness (mild diffuse tenderness), other (PD catheter in place) Integumentary: other (no edema) - Lab 07/10/18 05:35 07/10/18 05:35 Most recent lab results Calcium TNR 07/10/18 05:35 Medications & Allergies - Medications Allergies/Adverse Reactions: Allergies No Known Allergies Allergy (Verified 08/18/14 08:52) Home Medications: Home Medications Medication Instructions Recorded Confirmed Last Taken Type Aspirin [Aspirin BABY CHEW TAB] 81 mg PO QDAY #30 08/19/14 06/29/18 06/23/15 Rx Calcitriol [Rocaltrol] 0.5 mcg PO QDAY 06/29/18 06/29/18 Unknown History Potassium Chloride [Klor-Con M20] 20 meq PO DAILY 06/29/18 06/29/18 Unknown History Sevelamer Carbonate 1,600 mg PO TID 06/29/18 06/29/18 Unknown History Simvastatin [Zocor] 20 mg PO DAILY 06/29/18 06/29/18 Unknown History Active Medications: Generic Name Dose Route Start Last Admin Trade Name Bhupendra PRN Reason Stop Dose Admin Apixaban 5 mg 07/04/18 16:00 07/09/18 21:37 Eliquis PO 5 mg Q12HR DIANE Administration Protocol Aspirin 81 mg 06/29/18 13:00 07/09/18 10:45 Baby Aspirin PO 81 mg QDAY DIANE Administration Atorvastatin Calcium 40 mg 06/29/18 22:00 07/09/18 21:37 Lipitor PO 40 mg QHS DIANE Administration Calcitriol 0.5 mcg 06/29/18 13:00 07/09/18 10:43 Rocaltrol PO 0.5 mcg QDAY DIANE Administration Docusate Sodium 100 mg 07/02/18 10:00 07/09/18 21:37 Colace PO 100 mg BID DIANE Administration Insulin Human Lispro 0 unit 06/29/18 22:00 07/09/18 23:07 Humalog SUB-Q 2 unit ACHS DIANE Administration Protocol Lidocaine 1 each 06/29/18 13:00 07/09/18 14:20 Lidoderm 5% TD 1 each QDAY DIANE Administration Midodrine 10 mg 07/01/18 14:00 07/09/18 21:37 Proamatine PO 10 mg TID DIANE Administration Morphine Sulfate 2 mg 07/08/18 14:51 07/08/18 16:32 Morphine IV 2 mg Q4H PRN Administration Pain, Moderate (4-6) Pantoprazole Sodium 40 mg 07/08/18 10:00 07/09/18 10:45 Protonix PO 40 mg QDAY DIANE Administration Peritoneal Dialysis Solution 2,000 ml 07/06/18 14:00 07/10/18 05:49 Dianeal Low Calcium W/2.5% Dextrose IP 2,000 ml 0600,1000,1400,1800 DIANE Administration Polyethylene Glycol 17 gm 07/02/18 10:00 07/09/18 10:44 Miralax 3350 PO 17 gm QDAY DIANE Administration Sevelamer Carbonate 1,600 mg 06/29/18 12:00 07/09/18 18:37 Renvela PO 1,600 mg TIDWM DIANE Administration
[2018-07-10 09:31] LABS: Calcium 8.5 mg/dL (8.4-10.2)
[2018-07-10] MEDS: LIDODERM 5% TD SCH (11:21)
[2018-07-10] MEDS: RENVELA PO SCH ×3 (11:22→19:00)
[2018-07-10] MEDS: PROTONIX PO SCH (11:22)
[2018-07-10] MEDS: MIRALAX 3350 PO SCH ×2 (11:22→11:40)
[2018-07-10] MEDS: BABY ASPIRIN PO SCH (11:22)
[2018-07-10] MEDS: ELIQUIS PO SCH ×2 (11:22→22:50)
[2018-07-10] MEDS: ROCALTROL PO SCH (11:23)
[2018-07-10] MEDS: COLACE PO SCH ×2 (11:25→22:50)
[2018-07-10] MEDS: PROAMATINE PO SCH ×3 (11:29→21:07)
[2018-07-10] MEDS: FOLVITE PO SCH (13:58)
[2018-07-10] MEDS: MORPHINE IV PRN (13:58)
--- NOTE | 2018-07-10 18:36 | Progress Note ---
Assessment and Plan Patient had Peritoneal dialysis.Patient awake.Patient says feeling better.Patient is on room air.O2 saturation 97% . No complaint of chest pain, shortness of breath or cough.Patient Obese. Having excessive day time sleepiness. Recommend sleep study as out patient.Venous doppler studies reported extensive left leg DVT.Patient is on Apixaban. - Patient Problems (1) NSTEMI (non-ST elevated myocardial infarction) Current Visit: Yes Status: Acute Plan to address problem: Management as per cardiology. (2) HTN (hypertension) Current Visit: Yes Status: Acute Plan to address problem: Management as per primary care. (3) Diabetes Current Visit: Yes Status: Chronic Plan to address problem: Mangement as per primary care. (4) ESRD on peritoneal dialysis Current Visit: Yes Status: Acute Plan to address problem: Management as per Nephrology. Patient is on peritoneal dialysis. (5) Elevated d-dimer Current Visit: Yes Status: Acute Plan to address problem: Perfusion lung scan reported low probability for pulmonary emboli. Venous doppler studies of legs reported extensive left leg DVT. (6) Obesity (BMI 30.0-34.9) Current Visit: Yes Status: Acute Plan to address problem: Diet and exercise to loose weight. Sleep study as out patient. (7) DVT (deep venous thrombosis) Current Visit: Yes Status: Acute Qualifiers: DVT location: lower extremity Chronicity: acute Plan to address problem: Patients venous doppler studies reported extensive left leg DVT. Patient is on Apixaban. Subjective Date of service: 07/10/18 Principal diagnosis: dvt leg Interval history: Patient had Peritoneal dialysis.Patient awake.Patient says feeling better.Patient is on room air.O2 saturation 97% . No complaint of chest pain, shortness of breath or cough.Patient Obese. Having excessive day time sleepiness. Recommend sleep study as out patient.Venous doppler studies reported extensive left leg DVT.Patient is on Apixaban. Objective Vital Signs - 12hr 07/10/18 08:52 Temperature 99.5 F Pulse Rate 122 H Respiratory 18 Rate Blood Pressure 94/59 O2 Sat by Pulse 96 Oximetry Constitutional: no acute distress, alert Eyes: non-icteric ENT: oropharynx moist, other (mallampati 3) Neck: supple, no lymphadenopathy, no JVD, other (large neck circumference) Effort: normal Ascultation: Bilateral: diminished breath sounds, rhonchi (scant in bases) Percussion: Bilateral: not dull Cardiovascular: regular rate and rhythm, other (No R/M) Gastrointestinal: normoactive bowel sounds, soft, non-distended, other (No HSM, PD cathetr, clean dry site, mild lower abdominal tenderness, no rebound) Integumentary: normal Extremities: no cyanosis, no edema, pulses normal, no ischemia or petechiae Neurologic: normal mental status, non-focal exam (grossly), pupils equal and rou nd, motor strength normal and Psychiatric: mood appropriate, affect normal CBC and BMP: 07/10/18 05:35 07/10/18 08:22 ABG, PT/INR, D-dimer: PT/INR, D-dimer PT 13.6 Sec. (12.2-14.9) 07/03/18 12:39 INR 0.98 (0.87-1.13) 07/03/18 12:39 D-Dimer > 02443 ng/mlDDU (0-234) H 06/28/18 22:26 Abnormal lab findings: Abnormal Labs 06/28/18 06/28/18 06/28/18 10:38 20:54 20:54 WBC 24.8 H RBC Hgb 16.6 H Hct 50.3 H MCV 107 H MCH 35 H RDW 15.6 H Plt Count Lymph % (Auto) Lymph # Baso # Seg Neutrophils % Seg Neuts % (Manual) 95.0 H Lymphocytes % (Manual) 3.0 L Nucleated RBC % Seg Neutrophils # Seg Neutrophils # Man 23.6 H Lymphocytes # (Manual) 0.7 L Monocytes # (Manual) D-Dimer Heparin Anti-Xa Level Sodium 131 L Potassium Chloride 89.6 L Carbon Dioxide 19 L BUN 29 H Creatinine 9.3 H Glucose 174 H POC Glucose Lactic Acid Calcium ALT 5 L Troponin T 0.073 H C-Reactive Protein Albumin 3.2 L Triglycerides 194 H HDL Cholesterol 68 H Vitamin B12 Folate 06/28/18 06/29/18 06/29/18 22:26 12:18 13:30 WBC RBC Hgb Hct MCV MCH RDW Plt Count Lymph % (Auto) Lymph # Baso # Seg Neutrophils % Seg Neuts % (Manual) Lymphocytes % (Manual) Nucleated RBC % Seg Neutrophils # Seg Neutrophils # Man Lymphocytes # (Manual) Monocytes # (Manual) D-Dimer > 53083 H Heparin Anti-Xa Level Sodium Potassium Chloride Carbon Dioxide BUN Creatinine Glucose POC Glucose 168 H Lactic Acid Calcium ALT Troponin T 0.073 H C-Reactive Protein Albumin Triglycerides HDL Cholesterol Vitamin B12 Folate 06/29/18 06/29/18 06/29/18 13:30 14:11 16:36 WBC 19.8 H RBC Hgb 14.7 H Hct 45.4 H MCV 108 H MCH 35 H RDW 15.9 H Plt Count Lymph % (Auto) Lymph # Baso # Seg Neutrophils % Seg Neuts % (Manual) Lymphocytes % (Manual) Nucleated RBC % Seg Neutrophils # Seg Neutrophils # Man Lymphocytes # (Manual) Monocytes # (Manual) D-Dimer Heparin Anti-Xa Level Sodium 133 L Potassium Chloride 91.7 L Carbon Dioxide 20 L BUN 33 H Creatinine 9.9 H Glucose 196 H POC Glucose 165 H Lactic Acid Calcium ALT Troponin T C-Reactive Protein Albumin Triglycerides HDL Cholesterol Vitamin B12 Folate 06/29/18 06/29/18 06/30/18 20:37 22:01 04:49 WBC 14.8 H RBC Hgb Hct MCV 106 H MCH 35 H RDW 15.5 H Plt Count Lymph % (Auto) Lymph # Baso # Seg Neutrophils % Seg Neuts % (Manual) 90.0 H Lymphocytes % (Manual) 5.0 L Nucleated RBC % Seg Neutrophils # Seg Neutrophils # Man 13.3 H Lymphocytes # (Manual) 0.7 L Monocytes # (Manual) D-Dimer Heparin Anti-Xa Level Sodium Potassium Chloride Carbon Dioxide BUN Creatinine Glucose POC Glucose 202 H Lactic Acid Calcium ALT Troponin T 0.077 H C-Reactive Protein Albumin Triglycerides HDL Cholesterol Vitamin B12 Folate 06/30/18 06/30/18 06/30/18 04:49 08:27 12:17 WBC RBC Hgb Hct MCV MCH RDW Plt Count Lymph % (Auto) Lymph # Baso # Seg Neutrophils % Seg Neuts % (Manual) Lymphocytes % (Manual) Nucleated RBC % Seg Neutrophils # Seg Neutrophils # Man Lymphocytes # (Manual) Monocytes # (Manual) D-Dimer Heparin Anti-Xa Level Sodium 134 L Potassium 3.5 L Chloride 94.7 L Carbon Dioxide BUN 30 H Creatinine 8.8 H Glucose 182 H POC Glucose 170 H 145 H Lactic Acid Calcium 7.9 L ALT Troponin T C-Reactive Protein Albumin Triglycerides HDL Cholesterol Vitamin B12 Folate 06/30/18 06/30/18 07/01/18 16:44 22:06 07:21 WBC 11.8 H RBC 3.32 L Hgb Hct MCV 105 H MCH 35 H RDW 15.5 H Plt Count 125 L Lymph % (Auto) Lymph # Baso # Seg Neutrophils % Seg Neuts % (Manual) Lymphocytes % (Manual) Nucleated RBC % Seg Neutrophils # Seg Neutrophils # Man Lymphocytes # (Manual) Monocytes # (Manual) D-Dimer Heparin Anti-Xa Level Sodium Potassium Chloride Carbon Dioxide BUN Creatinine Glucose POC Glucose 155 H 174 H Lactic Acid Calcium ALT Troponin T C-Reactive Protein Albumin Triglycerides HDL Cholesterol Vitamin B12 Folate 07/01/18 07/01/18 07/01/18 07:21 08:22 11:38 WBC RBC Hgb Hct MCV MCH RDW Plt Count Lymph % (Auto) Lymph # Baso # Seg Neutrophils % Seg Neuts % (Manual) Lymphocytes % (Manual) Nucleated RBC % Seg Neutrophils # Seg Neutrophils # Man Lymphocytes # (Manual) Monocytes # (Manual) D-Dimer Heparin Anti-Xa Level Sodium 134 L Potassium Chloride 95.9 L Carbon Dioxide BUN 31 H Creatinine 8.4 H Glucose 151 H POC Glucose 117 H 166 H Lactic Acid Calcium 7.8 L ALT Troponin T C-Reactive Protein Albumin Triglycerides HDL Cholesterol Vitamin B12 Folate 07/01/18 07/01/18 07/01/18 13:32 13:32 16:27 WBC RBC Hgb Hct MCV MCH RDW Plt Count Lymph % (Auto) Lymph # Baso # Seg Neutrophils % Seg Neuts % (Manual) Lymphocytes % (Manual) Nucleated RBC % Seg Neutrophils # Seg Neutrophils # Man Lymphocytes # (Manual) Monocytes # (Manual) D-Dimer Heparin Anti-Xa Level Sodium Potassium Chloride Carbon Dioxide BUN Creatinine Glucose POC Glucose 149 H Lactic Acid 2.20 H* Calcium ALT Troponin T C-Reactive Protein 7.40 H Albumin Triglycerides HDL Cholesterol Vitamin B12 Folate 07/01/18 07/01/18 07/02/18 19:35 21:36 05:22 WBC RBC Hgb Hct MCV MCH RDW Plt Count Lymph % (Auto) Lymph # Baso # Seg Neutrophils % Seg Neuts % (Manual) Lymphocytes % (Manual) Nucleated RBC % Seg Neutrophils # Seg Neutrophils # Man Lymphocytes # (Manual) Monocytes # (Manual) D-Dimer Heparin Anti-Xa Level Sodium Potassium Chloride Carbon Dioxide BUN Creatinine Glucose POC Glucose 129 H Lactic Acid 2.60 H* 2.20 H* Calcium ALT Troponin T C-Reactive Protein Albumin Triglycerides HDL Cholesterol Vitamin B12 Folate 07/02/18 07/02/18 07/02/18 05:22 05:22 07:11 WBC 12.6 H RBC 3.51 L Hgb Hct MCV 105 H MCH 35 H RDW Plt Count 132 L Lymph % (Auto) Lymph # Baso # Seg Neutrophils % Seg Neuts % (Manual) 92.0 H Lymphocytes % (Manual) 2.0 L Nucleated RBC % Seg Neutrophils # Seg Neutrophils # Man 11.6 H Lymphocytes # (Manual) 0.3 L Monocytes # (Manual) D-Dimer Heparin Anti-Xa Level Sodium 131 L Potassium 3.3 L Chloride 93.1 L Carbon Dioxide BUN 31 H Creatinine 7.5 H Glucose 228 H POC Glucose 215 H Lactic Acid Calcium 7.7 L ALT Troponin T C-Reactive Protein Albumin Triglycerides HDL Cholesterol Vitamin B12 Folate 07/02/18 07/02/18 07/03/18 15:35 21:56 10:56 WBC RBC Hgb Hct MCV MCH RDW Plt Count Lymph % (Auto) Lymph # Baso # Seg Neutrophils % Seg Neuts % (Manual) Lymphocytes % (Manual) Nucleated RBC % Seg Neutrophils # Seg Neutrophils # Man Lymphocytes # (Manual) Monocytes # (Manual) D-Dimer Heparin Anti-Xa Level Sodium 130 L Potassium Chloride 91.6 L Carbon Dioxide BUN 33 H Creatinine 7.8 H Glucose POC Glucose 123 H 135 H Lactic Acid Calcium 7.7 L ALT Troponin T C-Reactive Protein Albumin Triglycerides HDL Cholesterol Vitamin B12 Folate 07/03/18 07/03/18 07/03/18 11:00 21:03 22:06 WBC 11.9 H RBC 3.59 L Hgb Hct MCV 103 H MCH 35 H RDW Plt Count Lymph % (Auto) Lymph # Baso # Seg Neutrophils % Seg Neuts % (Manual) 94.0 H Lymphocytes % (Manual) 5.0 L Nucleated RBC % Seg Neutrophils # Seg Neutrophils # Man 11.2 H Lymphocytes # (Manual) 0.6 L Monocytes # (Manual) D-Dimer Heparin Anti-Xa Level 0.28 L Sodium Potassium Chloride Carbon Dioxide BUN Creatinine Glucose POC Glucose 177 H Lactic Acid Calcium ALT Troponin T C-Reactive Protein Albumin Triglycerides HDL Cholesterol Vitamin B12 Folate 07/04/18 07/04/18 07/04/18 01:08 05:22 05:22 WBC 13.1 H RBC Hgb Hct MCV 104 H MCH 35 H RDW Plt Count 139 L Lymph % (Auto) 5.0 L Lymph # 0.7 L Baso # 0.2 H Seg Neutrophils % 87.7 H Seg Neuts % (Manual) Lymphocytes % (Manual) Nucleated RBC % Seg Neutrophils # 11.5 H Seg Neutrophils # Man Lymphocytes # (Manual) Monocytes # (Manual) D-Dimer Heparin Anti-Xa Level Sodium 132 L Potassium 3.1 L Chloride 92.4 L Carbon Dioxide BUN 30 H Creatinine 7.4 H Glucose 113 H POC Glucose 106 H Lactic Acid Calcium 7.8 L ALT Troponin T C-Reactive Protein Albumin Triglycerides HDL Cholesterol Vitamin B12 Folate 07/04/18 07/04/18 07/04/18 05:22 12:15 14:59 WBC RBC Hgb Hct MCV MCH RDW Plt Count Lymph % (Auto) Lymph # Baso # Seg Neutrophils % Seg Neuts % (Manual) Lymphocytes % (Manual) Nucleated RBC % Seg Neutrophils # Seg Neutrophils # Man Lymphocytes # (Manual) Monocytes # (Manual) D-Dimer Heparin Anti-Xa Level 1.31 H 1.70 H Sodium Potassium Chloride Carbon Dioxide BUN Creatinine Glucose POC Glucose 200 H Lactic Acid Calcium ALT Troponin T C-Reactive Protein Albumin Triglycerides HDL Cholesterol Vitamin B12 Folate 07/04/18 07/05/18 07/05/18 20:56 06:17 06:17 WBC RBC 3.51 L Hgb Hct MCV 104 H MCH 35 H RDW Plt Count Lymph % (Auto) 7.8 L Lymph # 0.7 L Baso # Seg Neutrophils % 85.2 H Seg Neuts % (Manual) Lymphocytes % (Manual) Nucleated RBC % Seg Neutrophils # Seg Neutrophils # Man Lymphocytes # (Manual) Monocytes # (Manual) D-Dimer Heparin Anti-Xa Level Sodium 132 L Potassium 3.1 L Chloride 92.7 L Carbon Dioxide BUN 29 H Creatinine 7.3 H Glucose 115 H POC Glucose 133 H Lactic Acid Calcium 7.9 L ALT Troponin T C-Reactive Protein Albumin Triglycerides HDL Cholesterol Vitamin B12 Folate 07/05/18 07/06/18 07/06/18 23:47 06:53 06:53 WBC RBC 3.47 L Hgb Hct MCV 104 H MCH 35 H RDW Plt Count Lymph % (Auto) Lymph # Baso # Seg Neutrophils % Seg Neuts % (Manual) 93.0 H Lymphocytes % (Manual) 2.0 L Nucleated RBC % Seg Neutrophils # Seg Neutrophils # Man 8.6 H Lymphocytes # (Manual) 0.2 L Monocytes # (Manual) D-Dimer Heparin Anti-Xa Level Sodium 132 L Potassium 3.2 L Chloride 94.5 L Carbon Dioxide BUN 32 H Creatinine 8.7 H Glucose 106 H POC Glucose 112 H Lactic Acid Calcium 7.8 L ALT Troponin T C-Reactive Protein Albumin Triglycerides HDL Cholesterol Vitamin B12 Folate 07/06/18 07/06/18 07/07/18 16:23 22:56 07:56 WBC RBC Hgb Hct MCV MCH RDW Plt Count Lymph % (Auto) Lymph # Baso # Seg Neutrophils % Seg Neuts % (Manual) Lymphocytes % (Manual) Nucleated RBC % Seg Neutrophils # Seg Neutrophils # Man Lymphocytes # (Manual) Monocytes # (Manual) D-Dimer Heparin Anti-Xa Level Sodium Potassium Chloride Carbon Dioxide BUN Creatinine Glucose POC Glucose 126 H 139 H 181 H Lactic Acid Calcium ALT Troponin T C-Reactive Protein Albumin Triglycerides HDL Cholesterol Vitamin B12 Folate 07/07/18 07/07/18 07/07/18 09:35 09:35 12:52 WBC RBC Hgb Hct MCV 105 H MCH 35 H RDW Plt Count Lymph % (Auto) 6.3 L Lymph # 0.6 L Baso # Seg Neutrophils % 87.9 H Seg Neuts % (Manual) Lymphocytes % (Manual) Nucleated RBC % Seg Neutrophils # 8.2 H Seg Neutrophils # Man Lymphocytes # (Manual) Monocytes # (Manual) D-Dimer Heparin Anti-Xa Level Sodium 130 L Potassium 3.4 L Chloride 90.3 L Carbon Dioxide BUN 29 H Creatinine 8.0 H Glucose 201 H POC Glucose 161 H Lactic Acid Calcium 8.0 L ALT Troponin T C-Reactive Protein Albumin Triglycerides HDL Cholesterol Vitamin B12 Folate 07/07/18 07/08/18 07/08/18 21:56 05:19 05:19 WBC 12.7 H RBC Hgb Hct MCV 104 H MCH 35 H RDW Plt Count Lymph % (Auto) Lymph # Baso # Seg Neutrophils % Seg Neuts % (Manual) 92.0 H Lymphocytes % (Manual) 5.0 L Nucleated RBC % 1.0 H Seg Neutrophils # Seg Neutrophils # Man 11.7 H Lymphocytes # (Manual) 0.6 L Monocytes # (Manual) D-Dimer Heparin Anti-Xa Level Sodium 134 L Potassium 3.4 L Chloride 93.6 L Carbon Dioxide BUN 30 H Creatinine 8.0 H Glucose 184 H POC Glucose 162 H Lactic Acid Calcium ALT Troponin T C-Reactive Protein Albumin Triglycerides HDL Cholesterol Vitamin B12 Folate 07/08/18 07/08/18 07/08/18 05:19 05:19 08:25 WBC RBC Hgb Hct MCV MCH RDW Plt Count Lymph % (Auto) Lymph # Baso # Seg Neutrophils % Seg Neuts % (Manual) Lymphocytes % (Manual) Nucleated RBC % Seg Neutrophils # Seg Neutrophils # Man Lymphocytes # (Manual) Monocytes # (Manual) D-Dimer Heparin Anti-Xa Level Sodium Potassium Chloride Carbon Dioxide BUN Creatinine Glucose POC Glucose 200 H Lactic Acid Calcium ALT Troponin T C-Reactive Protein Albumin Triglycerides HDL Cholesterol Vitamin B12 1416 H Folate 2.39 L 07/08/18 07/08/18 07/08/18 11:48 16:14 21:53 WBC RBC Hgb Hct MCV MCH RDW Plt Count Lymph % (Auto) Lymph # Baso # Seg Neutrophils % Seg Neuts % (Manual) Lymphocytes % (Manual) Nucleated RBC % Seg Neutrophils # Seg Neutrophils # Man Lymphocytes # (Manual) Monocytes # (Manual) D-Dimer Heparin Anti-Xa Level Sodium Potassium Chloride Carbon Dioxide BUN Creatinine Glucose POC Glucose 202 H 176 H 219 H Lactic Acid Calcium ALT Troponin T C-Reactive Protein Albumin Triglycerides HDL Cholesterol Vitamin B12 Folate 07/09/18 07/09/18 07/09/18 07:50 09:51 09:51 WBC 15.8 H RBC Hgb Hct 43.4 H MCV 105 H MCH 34 H RDW Plt Count Lymph % (Auto) Lymph # Baso # Seg Neutrophils % Seg Neuts % (Manual) 94.0 H Lymphocytes % (Manual) 3.0 L Nucleated RBC % 1.0 H Seg Neutrophils # Seg Neutrophils # Man 14.9 H Lymphocytes # (Manual) 0.5 L Monocytes # (Manual) D-Dimer Heparin Anti-Xa Level Sodium 135 L Potassium Chloride 95.5 L Carbon Dioxide BUN 29 H Creatinine 8.4 H Glucose 204 H POC Glucose 163 H Lactic Acid Calcium ALT Troponin T C-Reactive Protein Albumin Triglycerides HDL Cholesterol Vitamin B12 Folate 07/09/18 07/09/18 07/09/18 11:50 18:47 22:16 WBC RBC Hgb Hct MCV MCH RDW Plt Count Lymph % (Auto) Lymph # Baso # Seg Neutrophils % Seg Neuts % (Manual) Lymphocytes % (Manual) Nucleated RBC % Seg Neutrophils # Seg Neutrophils # Man Lymphocytes # (Manual) Monocytes # (Manual) D-Dimer Heparin Anti-Xa Level Sodium Potassium Chloride Carbon Dioxide BUN Creatinine Glucose POC Glucose 156 H 176 H 189 H Lactic Acid Calcium ALT Troponin T C-Reactive Protein Albumin Triglycerides HDL Cholesterol Vitamin B12 Folate 07/10/18 07/10/18 07/10/18 05:35 08:22 08:52 WBC 17.9 H RBC Hgb Hct MCV 105 H MCH 34 H RDW Plt Count Lymph % (Auto) Lymph # Baso # Seg Neutrophils % Seg Neuts % (Manual) 87.0 H Lymphocytes % (Manual) 6.0 L Nucleated RBC % Seg Neutrophils # Seg Neutrophils # Man 15.6 H Lymphocytes # (Manual) 1.1 L Monocytes # (Manual) 1.1 H D-Dimer Heparin Anti-Xa Level Sodium 135 L Potassium Chloride 92.8 L Carbon Dioxide BUN 27 H Creatinine 7.5 H Glucose 175 H POC Glucose 129 H Lactic Acid Calcium ALT Troponin T C-Reactive Protein Albumin Triglycerides HDL Cholesterol Vitamin B12 Folate 07/10/18 07/10/18 11:47 18:22 WBC RBC Hgb Hct MCV MCH RDW Plt Count Lymph % (Auto) Lymph # Baso # Seg Neutrophils % Seg Neuts % (Manual) Lymphocytes % (Manual) Nucleated RBC % Seg Neutrophils # Seg Neutrophils # Man Lymphocytes # (Manual) Monocytes # (Manual) D-Dimer Heparin Anti-Xa Level Sodium Potassium Chloride Carbon Dioxide BUN Creatinine Glucose POC Glucose 189 H 211 H Lactic Acid Calcium ALT Troponin T C-Reactive Protein Albumin Triglycerides HDL Cholesterol Vitamin B12 Folate Allied health notes reviewed: nursing
--- NOTE | 2018-07-10 18:41 | Consultation ---
History of Present Illness - Reason for Consult Consult date: 07/10/18 SIRS/Sepsis, unclear source Requesting physician: XIANG SMART - History of Present Illness The patient is a 67-year-old female with ESRD on peritoneal dialysis, hypertension, hyperlipidemia, diabetes mellitus type 2 who presented to the emergency room and was hospitalized on 06/29/2018 with complaints of fall. She was noted to be hypotensive with leukocytosis. Initial workup was negative for pneumonia. She was empirically treated with IV ceftriaxone for a few days and also needed levophed which was then weaned off. She was found to have a DVT of her left lower extremity. The patient was doing well and was planned for discharge to a half-way facility however she developed a low-grade temperature on 07/08/2018 along with leukocytosis. She had blood cultures obtained. Due to worsening leukocytosis, infectious diseases was consulted. Patient reports a chronic cough which is unchanged. Denies any nausea or vomiting. Denies any loose watery stools. Complains of some abdominal pain. She has been continued on peritoneal dialysis throughout hospitalization. Review of Systems: General: no fevers,chills or rigors at present HEENT: no new visual disturbance Respiratory: No cough, sputum, hemoptysis or shortness of breath Cardiovascular: No chest pain, syncope Gastrointestinal: No nausea, vomiting or diarrhea Genitourinary: No dysuria or hematuria Musculoskeletal: No new or worsening neck pain or back pain Neurologic: No headaches, seizures Hematologic: No easy bruising or bleeding Endocrine: No night sweats or acute weight loss Skin: negative for rash, jaundice Psychiatric: No suicidal or homicidal ideation Past History Past Medical History: diabetes, ESRD (on peritoneal dialysis), hypertension, hyp erlipidemia Past Surgical History: Other (hip and knee surgery and PD catheter) Social history: denies: smoking, alcohol abuse, prescription drug abuse Medications and Allergies Allergies Allergy/AdvReac Type Severity Reaction Status Date / Time No Known Allergies Allergy Verified 08/18/14 08:52 Home Medications Medication Instructions Recorded Confirmed Last Taken Type Aspirin [Aspirin BABY CHEW TAB] 81 mg PO QDAY #30 08/19/14 06/29/18 06/23/15 Rx Calcitriol [Rocaltrol] 0.5 mcg PO QDAY 06/29/18 06/29/18 Unknown History Potassium Chloride [Klor-Con M20] 20 meq PO DAILY 06/29/18 06/29/18 Unknown History Sevelamer Carbonate 1,600 mg PO TID 06/29/18 06/29/18 Unknown History Simvastatin [Zocor] 20 mg PO DAILY 06/29/18 06/29/18 Unknown History Active Meds: Active Medications Apixaban (Eliquis) 5 mg PO Q12HR [facility]; Protocol Last Admin: 07/10/18 11:22 Dose: 5 mg Documented by: Aspirin (Baby Aspirin) 81 mg PO QDAY [facility] Last Admin: 07/10/18 11:22 Dose: 81 mg Documented by: Atorvastatin Calcium (Lipitor) 40 mg PO QHS [facility] Last Admin: 07/09/18 21:37 Dose: 40 mg Documented by: Calcitriol (Rocaltrol) 0.5 mcg PO QDAY [facility] Last Admin: 07/10/18 11:23 Dose: 0.5 mcg Documented by: Docusate Sodium (Colace) 100 mg PO BID [facility] Last Admin: 07/10/18 11:25 Dose: 100 mg Documented by: Folic Acid (Folvite) 1 mg PO QDAY [facility] Last Admin: 07/10/18 13:58 Dose: 1 mg Documented by: Insulin Human Lispro (Humalog) 0 unit SUB-Q ACHS [facility]; Protocol Last Admin: 07/10/18 13:48 Dose: Not Given Documented by: Lidocaine (Lidoderm 5%) 1 each TD QDAY [facility] Last Admin: 07/10/18 11:21 Dose: 1 each Documented by: Midodrine (Proamatine) 10 mg PO TID [facility] Last Admin: 07/10/18 13:58 Dose: 10 mg Documented by: Morphine Sulfate (Morphine) 2 mg IV Q4H PRN PRN Reason: Pain, Moderate (4-6) Last Admin: 07/10/18 13:58 Dose: 2 mg Documented by: Pantoprazole Sodium (Protonix) 40 mg PO QDAY [facility] Last Admin: 07/10/18 11:22 Dose: 40 mg Documented by: Peritoneal Dialysis Solution (Dianeal Low Calcium W/2.5% Dextrose) 2,000 ml IP 0600,1000,1400,1800 [facility] Last Admin: 07/10/18 14:57 Dose: Not Given Documented by: Polyethylene Glycol (Miralax 3350) 17 gm PO QDAY [facility] Last Admin: 07/10/18 11:40 Dose: Not Given Documented by: Sevelamer Carbonate (Renvela) 1,600 mg PO TIDWM [facility] Last Admin: 07/10/18 13:49 Dose: Not Given Documented by: Physical Examination - Physical Exam Narrative exam: Physical Exam: Constitutional: Alert, cooperative. No acute distress Head, Ears, Nose: Normocephalic, atraumatic. External ears, nose normal Eyes: Conjunctivae/corneas clear. No icterus. No ptosis. Neck: Supple, no meningeal signs Oral: mucosa moist, no thrush Cardiovascular: S1, S2 normal. Respiratory: Good air entry, clear to auscultation bilaterally GI: Soft, diffusely tender; bowel sounds normal. slight purulence at PD catheter exit site Musculoskeletal: No pedal edema, no cyanosis. Skin: No rash or abscess Hem/Lymphatic: No palpable cervical or supraclavicular nodes. No lymphangitis Psych: Mood ok. Affect normal Neurological: Awake, alert, oriented. No gross abnormality - Constitutional Vitals: Vital Signs Temp Pulse Resp BP Pulse Ox 99.5 F 122 H 18 94/59 96 07/10/18 08:52 07/10/18 08:52 07/10/18 08:52 07/10/18 08:52 07/10/18 08:52 Temperature -Last 24 Hours Temperature 99.5 F Temperature 98.9 F Temperature 98.6 F Results - Labs CBC & Chem 7: 07/10/18 05:35 07/10/18 08:22 Labs: Abnormal lab results 07/09/18 07/09/18 07/10/18 Range/Units 18:47 22:16 05:35 WBC 17.9 H (4.5-11.0) K/mm3 MCV 105 H (79-97) fl MCH 34 H (28-32) pg Seg Neuts % (Manual) 87.0 H (40.0-70.0) % Lymphocytes % (Manual) 6.0 L (13.4-35.0) % Seg Neutrophils # Man 15.6 H (1.8-7.7) K/mm3 Lymphocytes # (Manual) 1.1 L (1.2-5.4) K/mm3 Monocytes # (Manual) 1.1 H (0.0-0.8) K/mm3 Sodium (137-145) mmol/L Chloride (98-107) mmol/L BUN (7-17) mg/dL Creatinine (0.7-1.2) mg/dL Glucose (65-100) mg/dL POC Glucose 176 H 189 H (70-105) 07/10/18 07/10/18 07/10/18 Range/Units 08:22 08:52 11:47 WBC (4.5-11.0) K/mm3 MCV (79-97) fl MCH (28-32) pg Seg Neuts % (Manual) (40.0-70.0) % Lymphocytes % (Manual) (13.4-35.0) % Seg Neutrophils # Man (1.8-7.7) K/mm3 Lymphocytes # (Manual) (1.2-5.4) K/mm3 Monocytes # (Manual) (0.0-0.8) K/mm3 Sodium 135 L (137-145) mmol/L Chloride 92.8 L (98-107) mmol/L BUN 27 H (7-17) mg/dL Creatinine 7.5 H (0.7-1.2) mg/dL Glucose 175 H (65-100) mg/dL POC Glucose 129 H 189 H (70-105) 07/10/18 Range/Units 18:22 WBC (4.5-11.0) K/mm3 MCV (79-97) fl MCH (28-32) pg Seg Neuts % (Manual) (40.0-70.0) % Lymphocytes % (Manual) (13.4-35.0) % Seg Neutrophils # Man (1.8-7.7) K/mm3 Lymphocytes # (Manual) (1.2-5.4) K/mm3 Monocytes # (Manual) (0.0-0.8) K/mm3 Sodium (137-145) mmol/L Chloride (98-107) mmol/L BUN (7-17) mg/dL Creatinine (0.7-1.2) mg/dL Glucose (65-100) mg/dL POC Glucose 211 H (70-105) - Imaging and Cardiology Chest x-ray: report reviewed, image reviewed (Chest x-ray on 07/08/2018 shows no pneumonia) CT scan - abdomen: report reviewed, image reviewed (CT abdomen and pelvis 07/02/2018 showed PD fluid in the abdomen, gallstones, small bilateral pleural effusions.) Assessment and Plan Cultures: 06/29/2018 Blood culture: No growth 07/01/2018 peritoneal dialysate culture: No growth 07/08/2018 blood culture: No growth at 48 hours A/P: 67-year-old female with ESRD on peritoneal dialysis, hypertension, hyperlipidemia, diabetes mellitus type 2 who presented to the emergency room and was hospitalized on 06/29/2018 with complaints of fall. Now with: 1) SIRS versus sepsis: Patient with worsening leukocytosis and low-grade fever. She also has abdominal tenderness on exam. She has some purulence at the PD catheter exit site. There is possibility of PD associated peritonitis. Chest x- ray without pneumonia, blood cultures with no growth. Patient doesn't make any urine, UTI unlikely. No report of diarrhea. 2) Leukocytosis: secondary to above. 3) Abdominal pain: Evaluate for PD associated peritonitis. 4) ESRD on PD: Renally dose antibiotics. 5) Left leg DVT: on anticoagulation. Recs: PD fluid cell count and culture ordered Discussed with nurse to change PD catheter dressing Empiric cefepime and vancomycin ordered, renally adjusted Follow up abdominal US results MD [facility] C: [phone] O: [phone] F: [phone]
[2018-07-10] MEDS ORDERED: VANCOMYCIN PHARMACY TO DOSE IV SCH (19:00)
[2018-07-10] MEDS ORDERED: VANCOMYCIN 1,500 MG in NACL 0.9% 500 ML 500 ML IV ONE (20:00)
[2018-07-10] MEDS: MAXIPIME/NS 1 GM/100 ML 1 GM/100 ML BAG IV SCH (20:19)
[2018-07-11 05:26] LABS: Hemoglobin 13.3 gm/dl (10.1-14.3)
[2018-07-11] MEDS: DIANEAL LOW CALCIUM W/2.5% DEXTROSE IP SCH ×4 (05:34→19:18)
--- NOTE | 2018-07-11 07:10 | Hem/Onc Progress Note ---
Assessment and Plan 1. Left leg deep venous thrombosis. The patient was on heparin drip. The patient is on peritoneal dialysis. The dose of Eliquis or any direct thrombin inhibitors or other anticoagulation monitoring may become challenging. I will discuss with other team members regarding the dosage. The question arises if a lower dose of Eliquis is sufficient. 2. MCV elevated. We will investigate. 3. Elevated D-dimers. 4. History of renal failure, on peritoneal dialysis. 5. History of hypertension. She was hypotensive at admission. 6. History of diabetes. 7. I will follow the patient during inpatient stay and then in the clinic setting for anticoagulation management. Option of Coumadin is also available but that would involve monitoring. 07/05 - d/w dr cartagena - pharmacy to help reg NOAC - ? eliquis 2.5 q 12? 07/06 - pharmacy has placed pt on 5 mg q 12 07/08 - pt on eliquis - d/w dr noyola - Placement pending gets PD 07/09 - pt had fever on eliquis for left leg dvt. h/o abdo discomfort - on and off 07/10/2018 DVT - on eliquis c/o abdo discomfort - d/w dr andrade - US abdo elevated MCV - low folate - replace ESRD on PD h/o fever 07/11 US abdo done - report pending Leukocytosis - seen by ID on eliquis - Patient Problems (1) DVT (deep venous thrombosis) Current Visit: Yes Status: Acute Qualifiers: DVT location: lower extremity Chronicity: acute Subjective Date of service: 07/11/18 Principal diagnosis: dvt leg Interval history: abdo pain Objective - Constitutional Vitals: Last Vital Signs Temp 97.4 F L 07/11/18 02:43 Pulse 81 07/11/18 02:43 Resp 18 07/11/18 02:43 BP 97/61 07/11/18 02:43 Pulse Ox 97 07/11/18 02:43 Pain Intensity (0-10): 1/10 (abdo) General appearance: no acute distress Performance status: 3-limited selfcare - EENT Eyes: EOM intact ENT: clear oral mucosa - Neck Neck: normal ROM - Respiratory Respiratory effort: Positive: normal Respiratory: bilateral: CTA - Cardiovascular Heart Sounds: Present: S1 & S2 Extremity abnormal: edema - Gastrointestinal General gastrointestinal: Present: soft, other (PD cath) Rectal Exam: deferred - Genitourinary Female genitourinary: Present: deferred - Integumentary Integumentary: warm - Musculoskeletal Musculoskeletal: generalized weakness - Neurologic Neurologic: moves all extremities - Labs Lab Results: Laboratory Results - last 24 hr 07/10/18 07/10/18 07/10/18 05:35 05:35 08:22 Hgb Hct Plt Count Add Manual Diff Complete Total Counted 100 Seg Neuts % (Manual) 87.0 H Band Neutrophils % 0 Lymphocytes % (Manual) 6.0 L Reactive Lymphs % (Man) 0 Monocytes % (Manual) 6.0 Eosinophils % (Manual) 1.0 Basophils % (Manual) 0 Metamyelocytes % 0 Myelocytes % 0 Promyelocytes % 0 Blast Cells % 0 Nucleated RBC % Not Reportable Seg Neutrophils # Man 15.6 H Band Neutrophils # 0.0 Lymphocytes # (Manual) 1.1 L Abs React Lymphs (Man) 0.0 Monocytes # (Manual) 1.1 H Eosinophils # (Manual) 0.2 Basophils # (Manual) 0.0 Metamyelocytes # 0.0 Myelocytes # 0.0 Promyelocytes # 0.0 Blast Cells # 0.0 WBC Morphology Not Reportable Hypersegmented Neuts Not Reportable Hyposegmented Neuts Not Reportable Hypogranular Neuts Not Reportable Smudge Cells Not Reportable Toxic Granulation Not Reportable Toxic Vacuolation Not Reportable Dohle Bodies Not Reportable Pelger-Huet Anomaly Not Reportable Nomi Rods Not Reportable Platelet Estimate Consistent w auto Clumped Platelets Not Reportable Plt Clumps, EDTA Not Reportable Large Platelets Not Reportable Giant Platelets Few Platelet Satelliting Not Reportable Plt Morphology Comment Not Reportable RBC Morphology Normal Dimorphic RBCs Not Reportable Polychromasia Not Reportable Hypochromasia Not Reportable Poikilocytosis Not Reportable Anisocytosis Not Reportable Microcytosis Not Reportable Macrocytosis Not Reportable Spherocytes Not Reportable Pappenheimer Bodies Not Reportable Sickle Cells Not Reportable Target Cells Not Reportable Tear Drop Cells Not Reportable Ovalocytes Not Reportable Helmet Cells Not Reportable Barnhart-[place] Bodies Not Reportable [place] Rings Not Reportable Edgar Cells Not Reportable Bite Cells Not Reportable Crenated Cell Not Reportable Elliptocytes Not Reportable Acanthocytes (Spur) Not Reportable Rouleaux Not Reportable Hemoglobin C Crystals Not Reportable Schistocytes Not Reportable Malaria parasites Not Reportable Navneet Bodies Not Reportable Hem Pathologist Commnt No Sodium TNR 135 L Potassium TNR 3.7 Chloride TNR 92.8 L Carbon Dioxide TNR 25 Anion Gap TNR 21 BUN TNR 27 H Creatinine TNR 7.5 H Estimated GFR TNR 7 BUN/Creatinine Ratio TNR 4 Glucose TNR 175 H POC Glucose Calcium TNR 8.5 07/10/18 07/10/18 07/10/18 08:52 11:47 18:22 Hgb Hct Plt Count Add Manual Diff Total Counted Seg Neuts % (Manual) Band Neutrophils % Lymphocytes % (Manual) Reactive Lymphs % (Man) Monocytes % (Manual) Eosinophils % (Manual) Basophils % (Manual) Metamyelocytes % Myelocytes % Promyelocytes % Blast Cells % Nucleated RBC % Seg Neutrophils # Man Band Neutrophils # Lymphocytes # (Manual) Abs React Lymphs (Man) Monocytes # (Manual) Eosinophils # (Manual) Basophils # (Manual) Metamyelocytes # Myelocytes # Promyelocytes # Blast Cells # WBC Morphology Hypersegmented Neuts Hyposegmented Neuts Hypogranular Neuts Smudge Cells Toxic Granulation Toxic Vacuolation Dohle Bodies Pelger-Huet Anomaly Nomi Rods Platelet Estimate Clumped Platelets Plt Clumps, EDTA Large Platelets Giant Platelets Platelet Satelliting Plt Morphology Comment RBC Morphology Dimorphic RBCs Polychromasia Hypochromasia Poikilocytosis Anisocytosis Microcytosis Macrocytosis Spherocytes Pappenheimer Bodies Sickle Cells Target Cells Tear Drop Cells Ovalocytes Helmet Cells Barnhart-[place] Bodies [place] Cells Bite Cells Crenated Cell Elliptocytes Acanthocytes (Spur) Rouleaux Hemoglobin C Crystals Schistocytes Malaria parasites Navneet Bodies Hem Pathologist Commnt Sodium Potassium Chloride Carbon Dioxide Anion Gap BUN Creatinine Estimated GFR BUN/Creatinine Ratio Glucose POC Glucose 129 H 189 H 211 H Calcium 07/10/18 07/11/18 21:32 04:10 Hgb 13.3 Hct 42.0 Plt Count 289 Add Manual Diff Total Counted Seg Neuts % (Manual) Band Neutrophils % Lymphocytes % (Manual) Reactive Lymphs % (Man) Monocytes % (Manual) Eosinophils % (Manual) Basophils % (Manual) Metamyelocytes % Myelocytes % Promyelocytes % Blast Cells % Nucleated RBC % Seg Neutrophils # Man Band Neutrophils # Lymphocytes # (Manual) Abs React Lymphs (Man) Monocytes # (Manual) Eosinophils # (Manual) Basophils # (Manual) Metamyelocytes # Myelocytes # Promyelocytes # Blast Cells # WBC Morphology Hypersegmented Neuts Hyposegmented Neuts Hypogranular Neuts Smudge Cells Toxic Granulation Toxic Vacuolation Dohle Bodies Pelger-Huet Anomaly Nomi Rods Platelet Estimate Clumped Platelets Plt Clumps, EDTA Large Platelets Giant Platelets Platelet Satelliting Plt Morphology Comment RBC Morphology Dimorphic RBCs Polychromasia Hypochromasia Poikilocytosis Anisocytosis Microcytosis Macrocytosis Spherocytes Pappenheimer Bodies Sickle Cells Target Cells Tear Drop Cells Ovalocytes Helmet Cells Barnhart-[place] Bodies [place] Cells Bite Cells Crenated Cell Elliptocytes Acanthocytes (Spur) Rouleaux Hemoglobin C Crystals Schistocytes Malaria parasites Navneet Bodies Hem Pathologist Commnt Sodium Potassium Chloride Carbon Dioxide Anion Gap BUN Creatinine Estimated GFR BUN/Creatinine Ratio Glucose POC Glucose 306 H Calcium Medications & Allergies - Medications Allergies/Adverse Reactions: Allergies No Known Allergies Allergy (Verified 08/18/14 08:52) Home Medications: Home Medications Medication Instructions Recorded Confirmed Last Taken Type Aspirin [Aspirin BABY CHEW TAB] 81 mg PO QDAY #30 08/19/14 06/29/18 06/23/15 Rx Calcitriol [Rocaltrol] 0.5 mcg PO QDAY 06/29/18 06/29/18 Unknown History Potassium Chloride [Klor-Con M20] 20 meq PO DAILY 06/29/18 06/29/18 Unknown History Sevelamer Carbonate 1,600 mg PO TID 06/29/18 06/29/18 Unknown History Simvastatin [Zocor] 20 mg PO DAILY 06/29/18 06/29/18 Unknown History Active Medications: Generic Name Dose Route Start Last Admin Trade Name Freq PRN Reason Stop Dose Admin Apixaban 5 mg 07/04/18 16:00 07/10/18 22:50 Eliquis PO 5 mg Q12HR [facility] Administration Protocol Aspirin 81 mg 06/29/18 13:00 07/10/18 11:22 Baby Aspirin PO 81 mg QDAY [facility] Administration Atorvastatin Calcium 40 mg 06/29/18 22:00 07/10/18 22:50 Lipitor PO 40 mg QHS [facility] Administration Calcitriol 0.5 mcg 06/29/18 13:00 07/10/18 11:23 Rocaltrol PO 0.5 mcg QDAY [facility] Administration Docusate Sodium 100 mg 07/02/18 10:00 07/10/18 22:50 Colace PO 100 mg BID [facility] Administration Folic Acid 1 mg 07/10/18 14:00 07/10/18 13:58 Folvite PO 1 mg QDAY [facility] Administration Cefepime HCl 1 gm in 100 mls @ 200 mls/hr 07/10/18 20:00 07/10/18 20:19 Maxipime/Ns 1 Gm/100 Ml IV 200 mls/hr QPM [facility] Administration Protocol Insulin Human Lispro 0 unit 06/29/18 22:00 07/10/18 22:50 Humalog SUB-Q 6 unit ACHS [facility] Administration Protocol Lidocaine 1 each 06/29/18 13:00 07/10/18 11:21 Lidoderm 5% TD 1 each QDAY [facility] Administration Midodrine 10 mg 07/01/18 14:00 07/10/18 21:07 Proamatine PO 10 mg TID [facility] Administration Morphine Sulfate 2 mg 07/08/18 14:51 07/10/18 13:58 Morphine IV 2 mg Q4H PRN Administration Pain, Moderate (4-6) Pantoprazole Sodium 40 mg 07/08/18 10:00 07/10/18 11:22 Protonix PO 40 mg QDAY [facility] Administration Peritoneal Dialysis Solution 2,000 ml 07/06/18 14:00 07/11/18 05:34 Dianeal Low Calcium W/2.5% Dextrose IP 2,000 ml 0600,1000,1400,1800 [facility] Administration Polyethylene Glycol 17 gm 07/02/18 10:00 07/10/18 11:40 Miralax 3350 PO Not Given QDAY [facility] Sevelamer Carbonate 1,600 mg 06/29/18 12:00 07/10/18 19:00 Renvela PO Not Given TIDWM [facility]
[2018-07-11] MEDS: HumaLOG SUB-Q SCH ×3 (08:56→18:17)
[2018-07-11] MEDS: RENVELA PO SCH ×3 (08:56→18:17)
--- NOTE | 2018-07-11 09:48 | Progress Note ---
Assessment and Plan Impression * End-stage renal disease * Hypertension * Diabetes * Abdominal pain * Hypokalemia * Extrusion of external cuff off her PD catheter Recommendations * CAPD going well. Continue current prescriptions. Patient ultrafiltering adequately * Previous PD fluid did show any evidence of peritonitis * She has extrusion of the external cuff of the PD catheter. Will need to follow up with her PD surgeon. May be done as an outpatient * Hold Procrit for now as her hemoglobin is 13.5 * Replace potassium * Abdominal discomfort is improving. However patient continues to have leukocytosis. PD fluid Gram stain does show numerous WBC but no organism. Reorder PD fluid for cell count and culture Subjective Date of service: 07/11/18 Principal diagnosis: dvt leg Interval history: Patient feels better. Abdominal pain is improving. States that her PD fluid has been clear. Denies any shortness of breath. Objective - Vital Signs Vital signs: Vital Signs - 12hr 07/10/18 07/11/18 07/11/18 22:00 02:43 07:33 Temperature 97.4 F L 97.7 F Pulse Rate 81 Pulse Rate [ 96 H Apical] Respiratory 18 18 16 Rate Blood Pressure 97/61 93/60 O2 Sat by Pulse 98 97 Oximetry - General Appearance General appearance: well-developed, well-nourished, appears stated age EENT: PERRL, mucous membranes moist Neck: no JVD, no thyromegaly, no carotid bruit, supple Respiratory: Present: Clear to Ascultation Cardiology: regular, normal heart rate Gastrointestinal: normal, normoactive bowel sounds, other (PD catheter in place) - Lab 07/11/18 04:10 07/10/18 08:22 Most recent lab results Calcium 8.5 mg/dL (8.4-10.2) 07/10/18 08:22 Medications & Allergies - Medications Allergies/Adverse Reactions: Allergies No Known Allergies Allergy (Verified 08/18/14 08:52) Home Medications: Home Medications Medication Instructions Recorded Confirmed Last Taken Type Aspirin [Aspirin BABY CHEW TAB] 81 mg PO QDAY #30 08/19/14 06/29/18 06/23/15 Rx Calcitriol [Rocaltrol] 0.5 mcg PO QDAY 06/29/18 06/29/18 Unknown History Potassium Chloride [Klor-Con M20] 20 meq PO DAILY 06/29/18 06/29/18 Unknown History Sevelamer Carbonate 1,600 mg PO TID 06/29/18 06/29/18 Unknown History Simvastatin [Zocor] 20 mg PO DAILY 06/29/18 06/29/18 Unknown History Active Medications: Generic Name Dose Route Start Last Admin Trade Name Freq PRN Reason Stop Dose Admin Apixaban 5 mg 07/04/18 16:00 07/10/18 22:50 Eliquis PO 5 mg Q12HR [facility] Administration Protocol Aspirin 81 mg 06/29/18 13:00 07/10/18 11:22 Baby Aspirin PO 81 mg QDAY [facility] Administration Atorvastatin Calcium 40 mg 06/29/18 22:00 07/10/18 22:50 Lipitor PO 40 mg QHS [facility] Administration Calcitriol 0.5 mcg 06/29/18 13:00 07/10/18 11:23 Rocaltrol PO 0.5 mcg QDAY [facility] Administration Docusate Sodium 100 mg 07/02/18 10:00 07/10/18 22:50 Colace PO 100 mg BID [facility] Administration Folic Acid 1 mg 07/10/18 14:00 07/10/18 13:58 Folvite PO 1 mg QDAY [facility] Administration Cefepime HCl 1 gm in 100 mls @ 200 mls/hr 07/10/18 20:00 07/10/18 20:19 Maxipime/Ns 1 Gm/100 Ml IV 200 mls/hr QPM [facility] Administration Protocol Insulin Human Lispro 0 unit 06/29/18 22:00 07/10/18 22:50 Humalog SUB-Q 6 unit ACHS [facility] Administration Protocol Lidocaine 1 each 06/29/18 13:00 07/10/18 11:21 Lidoderm 5% TD 1 each QDAY [facility] Administration Midodrine 10 mg 07/01/18 14:00 07/10/18 21:07 Proamatine PO 10 mg TID [facility] Administration Morphine Sulfate 2 mg 07/08/18 14:51 07/10/18 13:58 Morphine IV 2 mg Q4H PRN Administration Pain, Moderate (4-6) Pantoprazole Sodium 40 mg 07/08/18 10:00 07/10/18 11:22 Protonix PO 40 mg QDAY [facility] Administration Peritoneal Dialysis Solution 2,000 ml 07/06/18 14:00 07/11/18 05:34 Dianeal Low Calcium W/2.5% Dextrose IP 2,000 ml 0600,1000,1400,1800 [facility] Administration Polyethylene Glycol 17 gm 07/02/18 10:00 07/10/18 11:40 Miralax 3350 PO Not Given QDAY [facility] Sevelamer Carbonate 1,600 mg 06/29/18 12:00 07/10/18 19:00 Renvela PO Not Given TIDWM [facility]
--- NOTE | 2018-07-11 09:56 | Progress Note ---
Assessment and Plan Cultures: 06/29/2018 Blood culture: No growth 07/01/2018 peritoneal dialysate culture: No growth 07/08/2018 blood culture: No growth at 48 hours 07/10/2018 peritoneal fluid culture: no growth A/P: 67-year-old female with ESRD on peritoneal dialysis, hypertension, hyperlipidemia, diabetes mellitus type 2 who presented to the emergency room and was hospitalized on 06/29/2018 with complaints of fall. Now with: 1) SIRS versus sepsis: worsening leukocytosis continuing. no fevers Abdominal tenderness improved, no purulence at the PD catheter exit site. There is possibility of PD associated peritonitis. Abdominal US ordered, waiting on report. Chest x-ray without pneumonia, blood cultures with no growth. Patient doesn't make any urine, UTI unlikely. No report of diarrhea. 2) Leukocytosis: secondary to above. 3) Abdominal pain: Improved. Evaluate for PD associated peritonitis. 4) ESRD on PD: Renally dose antibiotics. 5) Left leg DVT: on anticoagulation. Recs: PD fluid cell count and culture ordered Continue cefepime and vancomycin renally adjusted, D2 Follow up abdominal US report monitor leukocytosis Alka Varner NP [facility] M: [phone] O:[phone] Subjective Date of service: 07/11/18 Principal diagnosis: dvt leg Interval history: Patient seen and examined. Laying in bed asleep, easily arousable. Decreased abdominal tenderness today. No fevers. Objective - Exam Narrative Exam: Constitutional: Alert, cooperative. No acute distress Head, Ears, Nose: Normocephalic, atraumatic. External ears, nose normal Eyes: Conjunctivae/corneas clear. No icterus. No ptosis. Neck: Supple, no meningeal signs Oral: mucosa moist, no thrush Cardiovascular: S1, S2 normal. Respiratory: Good air entry, clear to auscultation bilaterally GI: Soft, mildly tender, no drainage at PD site, dressing clean and dry. Musculoskeletal: No pedal edema, no cyanosis. Skin: No rash or abscess Hem/Lymphatic: No palpable cervical or supraclavicular nodes. No lymphangitis Psych: Mood ok. Affect normal Neurological: Awake, alert, oriented. No gross abnormality - Constitutional Vitals: Vital Signs Temp Pulse Resp BP Pulse Ox 97.7 F 81 16 93/60 97 07/11/18 07:33 07/11/18 02:43 07/11/18 07:33 07/11/18 07:33 07/11/18 02:43 Temperature -Last 24 Hours Temperature 97.7 F Temperature 97.4 F Temperature 97.3 F Temperature 97.3 F Temperature 98.0 F - Labs CBC & Chem 7: 07/11/18 04:10 07/10/18 08:22 Labs: Abnormal lab results 07/10/18 07/10/18 07/10/18 Range/Units 08:52 11:47 18:22 POC Glucose 129 H 189 H 211 H (70-105) 07/10/18 07/11/18 Range/Units 21:32 07:36 POC Glucose 306 H 113 H (70-105)
--- NOTE | 2018-07-11 10:42 | Progress Note ---
Assessment and Plan Assessment and plan: Sepsis not present on admission - Worsening leukocytosis, no fever - Antibiotics restarted by ID - No infiltrates noted on CTA chest/chest x-ray/VQ scan, patient does not make urine - Etiology possibly PD associated peritonitis. Hypotension - Patient was placed on levophed, now weaned off - cont midodrine for now HLD, on statin ESRD on PD, Nephrology following Diabetes type 2, diet controlled, cont SSRI Elevated troponin/NSTEMI type 2 - Cardiology following - Stress test negative DVT left lower ext. Cont. Eliquis. Debility PT evaluation done patient unable to stand, and she lives alone. discussed with case management Patient for LTAC evaluation History Interval history: Patient is a 67-year-old female past medical history of end-stage renal disease on peritoneal dialysis, hypertension hyperlipidemia, diabetes mellitus type 2 on diet control, presented to ER by EMS after having a fall around 9 AM in the morning but she had no loss of consciousness or hit her head. She was sitting on bed and accidentally "slid to ground". She was unable to get up from the bed as she was feeling very weak in her legs. Her family called emergency services to break into her house around 5pm. She was then brought to the ER for further evaluation and management . She noted to have highly elevated d-dimer, elevated white count. In the ED, patient was hypotensive w/ WBC 24.8. CTA chest was unremarkable. V/Q scan was also low prob PE. She denied fever, chills, PD fluid has been clear. She was placed on Levophed, given IV Rocephin and admitted. she was diagnosed with SIRS, hypotension. She improved on Levophed was weaned off. She had swelling of the legs on both ultrasound confirmed a DVT of left lower extremity for which she has been . However patient has failure to thrive, debility, she feels very weak and unable to stand. I discussed with case management she started working on acute rehabilitation placement. The patient developed fever and leukocytosis on 07/08/18. Fever resolved but leukocytosis worsened. Antibiotics restarted and blood cultures thus far negative. ID consulted. No issues overnight. Hospitalist Physical - Constitutional Vitals: Temp Pulse Resp BP Pulse Ox 97.7 F 81 16 93/60 97 07/11/18 07:33 07/11/18 02:43 07/11/18 07:33 04/04/19 07:33 07/11/18 02:43 General appearance: Present: no acute distress, obese - EENT Eyes: Present: PERRL, EOM intact ENT: hearing intact, clear oral mucosa, dentition normal - Neck Neck: Present: supple, normal ROM - Respiratory Respiratory effort: normal Respiratory: bilateral: CTA - Cardiovascular Rhythm: regular Heart Sounds: Present: S1 & S2. Absent: gallop, rub - Extremities Extremities: no ischemia, No edema, Full ROM - Abdominal General gastrointestinal: soft, tender, non-distended, normal bowel sounds Localized gastrointestinal: tender: diffuse - Integumentary Integumentary: Present: clear, warm, dry - Neurologic Neurologic: CNII-XII intact, moves all extremities Results - Labs CBC & Chem 7: 07/11/18 04:10 07/10/18 08:22 Labs: Laboratory Last Values WBC 17.9 K/mm3 (4.5-11.0) H 07/10/18 05:35 RBC 4.02 M/mm3 (3.65-5.03) 07/10/18 05:35 Hgb 13.3 gm/dl (10.1-14.3) 07/11/18 04:10 Hct 42.0 % (30.3-42.9) 07/11/18 04:10 MCV 105 fl (79-97) H 07/10/18 05:35 MCH 34 pg (28-32) H 07/10/18 05:35 MCHC 33 % (30-34) 07/10/18 05:35 RDW 14.9 % (13.2-15.2) 07/10/18 05:35 Plt Count 289 K/mm3 (140-440) 07/11/18 04:10 Lymph % (Auto) 6.3 % (13.4-35.0) L 07/07/18 09:35 [place] % (Auto) 5.4 % (0.0-7.3) 07/07/18 09:35 Eos % (Auto) 0.3 % (0.0-4.3) 07/07/18 09:35 Baso % (Auto) 0.1 % (0.0-1.8) 07/07/18 09:35 Lymph # 0.6 K/mm3 (1.2-5.4) L 07/07/18 09:35 [place] # 0.5 K/mm3 (0.0-0.8) 07/07/18 09:35 Eos # 0.0 K/mm3 (0.0-0.4) 07/07/18 09:35 Baso # 0.0 K/mm3 (0.0-0.1) 07/07/18 09:35 Add Manual Diff Complete 07/10/18 05:35 Total Counted 100 07/10/18 05:35 Seg Neutrophils % [employer] Analyst 07/10/18 05:35 Seg Neuts % (Manual) 87.0 % (40.0-70.0) H 07/10/18 05:35 Band Neutrophils % 0 % 07/10/18 05:35 Lymphocytes % (Manual) 6.0 % (13.4-35.0) L 07/10/18 05:35 Reactive Lymphs % (Man) 0 % 07/10/18 05:35 Monocytes % (Manual) 6.0 % (0.0-7.3) 07/10/18 05:35 Eosinophils % (Manual) 1.0 % (0.0-4.3) 07/10/18 05:35 Basophils % (Manual) 0 % (0.0-1.8) 07/10/18 05:35 Metamyelocytes % 0 % 07/10/18 05:35 Myelocytes % 0 % 07/10/18 05:35 Promyelocytes % 0 % 07/10/18 05:35 Blast Cells % 0 % 07/10/18 05:35 Nucleated RBC % Not Reportable 07/10/18 05:35 Seg Neutrophils # 8.2 K/mm3 (1.8-7.7) H 07/07/18 09:35 Seg Neutrophils # Man 15.6 K/mm3 (1.8-7.7) H 07/10/18 05:35 Band Neutrophils # 0.0 K/mm3 07/10/18 05:35 Lymphocytes # (Manual) 1.1 K/mm3 (1.2-5.4) L 07/10/18 05:35 Abs React Lymphs (Man) 0.0 K/mm3 07/10/18 05:35 Monocytes # (Manual) 1.1 K/mm3 (0.0-0.8) H 07/10/18 05:35 Eosinophils # (Manual) 0.2 K/mm3 (0.0-0.4) 07/10/18 05:35 Basophils # (Manual) 0.0 K/mm3 (0.0-0.1) 07/10/18 05:35 Metamyelocytes # 0.0 K/mm3 07/10/18 05:35 Myelocytes # 0.0 K/mm3 07/10/18 05:35 Promyelocytes # 0.0 K/mm3 07/10/18 05:35 Blast Cells # 0.0 K/mm3 07/10/18 05:35 WBC Morphology Not Reportable 07/10/18 05:35 Hypersegmented Neuts Not Reportable 07/10/18 05:35 Hyposegmented Neuts Not Reportable 07/10/18 05:35 Hypogranular Neuts Not Reportable 07/10/18 05:35 Smudge Cells Not Reportable 07/10/18 05:35 Toxic Granulation Not Reportable 07/10/18 05:35 Toxic Vacuolation Not Reportable 07/10/18 05:35 Dohle Bodies Not Reportable 07/10/18 05:35 Pelger-Huet Anomaly Not Reportable 07/10/18 05:35 Nomi Rods Not Reportable 07/10/18 05:35 Platelet Estimate Consistent w auto 07/10/18 05:35 Clumped Platelets Not Reportable 07/10/18 05:35 Plt Clumps, EDTA Not Reportable 07/10/18 05:35 Large Platelets Not Reportable 07/10/18 05:35 Giant Platelets Few 07/10/18 05:35 Platelet Satelliting Not Reportable 07/10/18 05:35 Plt Morphology Comment Not Reportable 07/10/18 05:35 RBC Morphology Normal 07/10/18 05:35 Dimorphic RBCs Not Reportable 07/10/18 05:35 Polychromasia Not Reportable 07/10/18 05:35 Hypochromasia Not Reportable 07/10/18 05:35 Poikilocytosis Not Reportable 07/10/18 05:35 Anisocytosis Not Reportable 07/10/18 05:35 Microcytosis Not Reportable 07/10/18 05:35 Macrocytosis Not Reportable 07/10/18 05:35 Spherocytes Not Reportable 07/10/18 05:35 Pappenheimer Bodies Not Reportable 07/10/18 05:35 Sickle Cells Not Reportable 07/10/18 05:35 Target Cells Not Reportable 07/10/18 05:35 Tear Drop Cells Not Reportable 07/10/18 05:35 Ovalocytes Not Reportable 07/10/18 05:35 Helmet Cells Not Reportable 07/10/18 05:35 [place] Bodies Not Reportable 07/10/18 05:35 [place] Rings Not Reportable 07/10/18 05:35 [place] Cells Not Reportable 07/10/18 05:35 Bite Cells Not Reportable 07/10/18 05:35 Crenated Cell Not Reportable 07/10/18 05:35 Elliptocytes Not Reportable 07/10/18 05:35 Acanthocytes (Spur) Not Reportable 07/10/18 05:35 Rouleaux Not Reportable 07/10/18 05:35 Hemoglobin C Crystals Not Reportable 07/10/18 05:35 Schistocytes Not Reportable 07/10/18 05:35 Malaria parasites Not Reportable 07/10/18 05:35 Navneet Bodies Not Reportable 07/10/18 05:35 Hem Pathologist Commnt No 07/10/18 05:35 PT 13.6 Sec. (12.2-14.9) 07/03/18 12:39 INR 0.98 (0.87-1.13) 07/03/18 12:39 APTT 34.1 Sec. (24.2-36.6) 07/03/18 12:39 D-Dimer > 69346 ng/mlDDU (0-234) H 06/28/18 22:26 Heparin Anti-Xa Level 1.70 U.I./ml (0.3-0.7) H 07/04/18 14:59 Sodium 135 mmol/L (137-145) L 07/10/18 08:22 Potassium 3.7 mmol/L (3.6-5.0) 07/10/18 08:22 Chloride 92.8 mmol/L (98-107) L 07/10/18 08:22 Carbon Dioxide 25 mmol/L (22-30) 07/10/18 08:22 Anion Gap 21 mmol/L 07/10/18 08:22 BUN 27 mg/dL (7-17) H 07/10/18 08:22 Creatinine 7.5 mg/dL (0.7-1.2) H 07/10/18 08:22 Estimated GFR 7 ml/min 07/10/18 08:22 BUN/Creatinine Ratio 4 % 07/10/18 08:22 Glucose 175 mg/dL (65-100) H 07/10/18 08:22 POC Glucose 113 (70-105) H 07/11/18 07:36 Lactic Acid 2.20 mmol/L (0.7-2.0) H* 07/02/18 05:22 Calcium 8.5 mg/dL (8.4-10.2) 07/10/18 08:22 Total Bilirubin 0.40 mg/dL (0.1-1.2) 06/28/18 20:54 AST 25 units/L (5-40) 06/28/18 20:54 ALT 5 units/L (7-56) L 06/28/18 20:54 Alkaline Phosphatase 88 units/L (35-129) 06/28/18 20:54 Total Creatine Kinase 118 units/L (30-135) 06/29/18 20:37 Troponin T 0.077 ng/mL (0.00-0.029) H 06/29/18 20:37 C-Reactive Protein 7.40 mg/dL (0.00-1.30) H 07/01/18 13:32 Total Protein 7.4 g/dL (6.3-8.2) 06/28/18 20:54 Albumin 3.2 g/dL (3.9-5) L 06/28/18 20:54 Albumin/Globulin Ratio 0.8 % 06/28/18 20:54 Triglycerides 194 mg/dL (2-149) H 06/28/18 10:38 Cholesterol 167 mg/dL (50-199) 06/28/18 10:38 LDL Cholesterol Direct 61 mg/dL (50-130) 06/28/18 10:38 HDL Cholesterol 68 mg/dL (40-59) H 06/28/18 10:38 Cholesterol/HDL Ratio 2.45 % 06/28/18 10:38 Vitamin B12 1416 pg/mL (211-911) H 07/08/18 05:19 Folate 2.39 ng/mL (7.3-26.0) L 07/08/18 05:19 Active Medications - Current Medications Current Medications: Generic Name Dose Route Start Last Admin Trade Name Freq PRN Reason Stop Dose Admin Apixaban 5 mg 07/04/18 16:00 07/10/18 22:50 Eliquis PO 5 mg Q12HR DIANE Administration Protocol Aspirin 81 mg 06/29/18 13:00 07/10/18 11:22 Baby Aspirin PO 81 mg QDAY DIANE Administration Atorvastatin Calcium 40 mg 06/29/18 22:00 07/10/18 22:50 Lipitor PO 40 mg QHS DIANE Administration Calcitriol 0.5 mcg 06/29/18 13:00 07/10/18 11:23 Rocaltrol PO 0.5 mcg QDAY DIANE Administration Docusate Sodium 100 mg 07/02/18 10:00 07/10/18 22:50 Colace PO 100 mg BID DIANE Administration Folic Acid 1 mg 07/10/18 14:00 07/10/18 13:58 Folvite PO 1 mg QDAY DIANE Administration Cefepime HCl 1 gm in 100 mls @ 200 mls/hr 07/10/18 20:00 07/10/18 20:19 Maxipime/Ns 1 Gm/100 Ml IV 200 mls/hr QPM DIANE Administration Protocol Insulin Human Lispro 0 unit 06/29/18 22:00 07/10/18 22:50 Humalog SUB-Q 6 unit ACHS DIANE Administration Protocol Lidocaine 1 each 06/29/18 13:00 07/10/18 11:21 Lidoderm 5% TD 1 each QDAY DIANE Administration Midodrine 10 mg 07/01/18 14:00 07/10/18 21:07 Proamatine PO 10 mg TID DIANE Administration Morphine Sulfate 2 mg 07/08/18 14:51 07/10/18 13:58 Morphine IV 2 mg Q4H PRN Administration Pain, Moderate (4-6) Pantoprazole Sodium 40 mg 07/08/18 10:00 07/10/18 11:22 Protonix PO 40 mg QDAY DIANE Administration Peritoneal Dialysis Solution 2,000 ml 07/06/18 14:00 07/11/18 05:34 Dianeal Low Calcium W/2.5% Dextrose IP 2,000 ml 0600,1000,1400,1800 DIANE Administration Polyethylene Glycol 17 gm 07/02/18 10:00 07/10/18 11:40 Miralax 3350 PO Not Given [facility] Sevelamer Carbonate 1,600 mg 06/29/18 12:00 07/10/18 19:00 Renvela PO Not Given [facility] Nutrition/Malnutrition Assess - Dietary Evaluation Nutrition/Malnutrition Findings: Nutrition Notes Start: 07/05/18 14:49 Freq: Status: Active Protocol: Document 07/09/18 14:17 EB (Rec: 07/09/18 14:32 EB [id number]) Co-Sign 07/09/18 14:17 RM Nutrition Notes Initial or Follow up Reassessment Current Diagnosis Diabetes Other Pertinent Diagnosis ESRD on PD, Possible sepsis Current Diet Renal,Cardiac with Nepro daily Labs/Tests Reviewed Pertinent Medications Reviewed Height 5 ft 6 in Weight 102.5 kg Horace Body Weight (kg) 59.09 BMI 36.4 Weight change and time frame Wt increase likely due to fluid change Subjective/Other Information Pt received PD earlier today. Pt resting in bed and states she ate about 50% of her breakfast and meals yesterday. She had not touched her lunch that was delivered this afternoon. Pt reports fair appetite, but says she really enjoys and drinks her ONS daily. Percent of energy/protein needs met: 86%/100% Burn Absent Trauma Absent Current % PO Fair (50-74%) #1 Nutrition Diagnosis Inadequate oral intake As Evidenced by Signs and Symptoms pt meeting 86% and 100% of edis and pro needs, respectively Diagnosis Progress(for reassessment Resolved documentation) Is patient on ventilator? No Is Patient Ambulatory and/or Out of Bed Yes REE-([facility]ambulatory/OOB) [ [id number]] Kcal/Kg value to use for calculation 17 Approximate Energy Requirements Using 1743 kcal/Kg Calculation Used for Recommendations Kcal/kg Additional Notes Protein Needs: 92-100g (1.2-1. 3g/kg, 77kg adjBW) Fluid Needs: 1 ml/kcal Nutrition Intervention Change Diet Order: Continue current Add Supplement/Snack (indicate name/kcal Nepro 1 daily /protein ) Provides kCal: 425 Provides Protein (gm) 19 Goal #1 Continue to meet at least 75% of calorie and protein needs via PO and ONS intakes Anticipated Discharge Needs: Renal diet Follow-Up By: 07/16/18 Additional Comments F/u: PO and ONS intakes
[2018-07-11 10:47] LABS: Hematocrit 41.8 % (30.3-42.9); Hemoglobin 13.6 gm/dl (10.1-14.3); Mean Corpuscular HGB Conc 32 % (30-34); Mean Corpuscular Volume 107 fl (79-97); Platelet Count 310 K/mm3 (140-440); Red Cell Distribution Width 15.3 % (13.2-15.2)
[2018-07-11] MEDS: LIDODERM 5% TD SCH (10:57)
[2018-07-11] MEDS: ROCALTROL PO SCH (10:58)
[2018-07-11] MEDS: ELIQUIS PO SCH ×2 (10:58→22:57)
[2018-07-11] MEDS: FOLVITE PO SCH (10:58)
[2018-07-11] MEDS: BABY ASPIRIN PO SCH (10:58)
[2018-07-11] MEDS: PROTONIX PO SCH (10:58)
[2018-07-11] MEDS: COLACE PO SCH ×2 (10:59→22:57)
[2018-07-11] MEDS: MIRALAX 3350 PO SCH (10:59)
[2018-07-11] MEDS: PROAMATINE PO SCH ×2 (11:08→15:47)
--- NOTE | 2018-07-11 13:35 | Progress Note ---
Assessment and Plan Severe sepsis with septic shock HLD ESRD on PD Diabetes Elevated troponin/NSTEMI type 2 LLExt DVT Abdominal pain -Bowel regimen, serial abdominal exams - Nephrology for peritoneal dialysis - No infiltrates noted on CTA chest/chest x-ray/VQ scan -Increase activity -On midodrine for blood pressure support -De-escalate antibiotics based on cultures -Continue anticoagulation with Eliquis, monitor for bleeding complications -Influenza and pneumonia vaccination per protocol prior to discharge -Continue all supportive care Continue to monitor closely Subjective Date of service: 07/11/18 Principal diagnosis: dvt leg Interval history: Patient is seen today for: Septic Shock (etiology unclear) with lactic acidosis and hypotension; Hyperlipidemia; ESRD on PD; Diabetes type 2; Elevated troponin/NSTEMI type 2 Seen and examined at bedside; 24hour events reviewed; nursing and respiratory care staff consulted; no adverse overnight events reported to me; resting peacefully in bed; looks and feels better; denies acute chest pains or palpitations; No N/V/F/C; has some lower abdominal pain, episode of fecal incontinence this morning( received a dose of lactulose- possible overflow diarrhea), states she does not have an appetite this morning. Objective Vital Signs - 12hr 07/11/18 07/11/18 02:43 07:33 Temperature 97.4 F L 97.7 F Pulse Rate 81 Respiratory 18 16 Rate Blood Pressure 97/61 93/60 O2 Sat by Pulse 97 Oximetry Constitutional: no acute distress, alert Eyes: non-icteric ENT: oropharynx moist, other (mallampati 3) Neck: supple, no lymphadenopathy, no JVD, other (large neck circumference) Effort: normal Ascultation: Bilateral: diminished breath sounds, rhonchi (scant in bases) Percussion: Bilateral: not dull Cardiovascular: regular rate and rhythm, other (No R/M) Gastrointestinal: normoactive bowel sounds, soft, non-distended, other (No HSM, PD cathetr, clean dry site, mild lower abdominal tenderness, no rebound) Integumentary: normal Extremities: no cyanosis, no edema, pulses normal, no ischemia or petechiae Neurologic: normal mental status, non-focal exam (grossly), pupils equal and round, motor strength normal and Psychiatric: mood appropriate, affect normal CBC and BMP: 07/11/18 04:10 07/10/18 08:22 ABG, PT/INR, D-dimer: PT/INR, D-dimer PT 13.6 Sec. (12.2-14.9) 07/03/18 12:39 INR 0.98 (0.87-1.13) 07/03/18 12:39 D-Dimer > 67292 ng/mlDDU (0-234) H 06/28/18 22:26 Abnormal lab findings: Abnormal Labs 06/28/18 06/28/18 06/28/18 10:38 20:54 20:54 WBC 24.8 H RBC Hgb 16.6 H Hct 50.3 H MCV 107 H MCH 35 H RDW 15.6 H Plt Count Lymph % (Auto) Lymph # Baso # Seg Neutrophils % Seg Neuts % (Manual) 95.0 H Lymphocytes % (Manual) 3.0 L Nucleated RBC % Seg Neutrophils # Seg Neutrophils # Man 23.6 H Lymphocytes # (Manual) 0.7 L Monocytes # (Manual) D-Dimer Heparin Anti-Xa Level Sodium 131 L Potassium Chloride 89.6 L Carbon Dioxide 19 L BUN 29 H Creatinine 9.3 H Glucose 174 H POC Glucose Lactic Acid Calcium ALT 5 L Troponin T 0.073 H C-Reactive Protein Albumin 3.2 L Triglycerides 194 H HDL Cholesterol 68 H Vitamin B12 Folate 06/28/18 06/29/18 06/29/18 22:26 12:18 13:30 WBC RBC Hgb Hct MCV MCH RDW Plt Count Lymph % (Auto) Lymph # Baso # Seg Neutrophils % Seg Neuts % (Manual) Lymphocytes % (Manual) Nucleated RBC % Seg Neutrophils # Seg Neutrophils # Man Lymphocytes # (Manual) Monocytes # (Manual) D-Dimer > 07506 H Heparin Anti-Xa Level Sodium Potassium Chloride Carbon Dioxide BUN Creatinine Glucose POC Glucose 168 H Lactic Acid Calcium ALT Troponin T 0.073 H C-Reactive Protein Albumin Triglycerides HDL Cholesterol Vitamin B12 Folate 06/29/18 06/29/18 06/29/18 13:30 14:11 16:36 WBC 19.8 H RBC Hgb 14.7 H Hct 45.4 H MCV 108 H MCH 35 H RDW 15.9 H Plt Count Lymph % (Auto) Lymph # Baso # Seg Neutrophils % Seg Neuts % (Manual) Lymphocytes % (Manual) Nucleated RBC % Seg Neutrophils # Seg Neutrophils # Man Lymphocytes # (Manual) Monocytes # (Manual) D-Dimer Heparin Anti-Xa Level Sodium 133 L Potassium Chloride 91.7 L Carbon Dioxide 20 L BUN 33 H Creatinine 9.9 H Glucose 196 H POC Glucose 165 H Lactic Acid Calcium ALT Troponin T C-Reactive Protein Albumin Triglycerides HDL Cholesterol Vitamin B12 Folate 06/29/18 06/29/18 06/30/18 20:37 22:01 04:49 WBC 14.8 H RBC Hgb Hct MCV 106 H MCH 35 H RDW 15.5 H Plt Count Lymph % (Auto) Lymph # Baso # Seg Neutrophils % Seg Neuts % (Manual) 90.0 H Lymphocytes % (Manual) 5.0 L Nucleated RBC % Seg Neutrophils # Seg Neutrophils # Man 13.3 H Lymphocytes # (Manual) 0.7 L Monocytes # (Manual) D-Dimer Heparin Anti-Xa Level Sodium Potassium Chloride Carbon Dioxide BUN Creatinine Glucose POC Glucose 202 H Lactic Acid Calcium ALT Troponin T 0.077 H C-Reactive Protein Albumin Triglycerides HDL Cholesterol Vitamin B12 Folate 06/30/18 06/30/18 06/30/18 04:49 08:27 12:17 WBC RBC Hgb Hct MCV MCH RDW Plt Count Lymph % (Auto) Lymph # Baso # Seg Neutrophils % Seg Neuts % (Manual) Lymphocytes % (Manual) Nucleated RBC % Seg Neutrophils # Seg Neutrophils # Man Lymphocytes # (Manual) Monocytes # (Manual) D-Dimer Heparin Anti-Xa Level Sodium 134 L Potassium 3.5 L Chloride 94.7 L Carbon Dioxide BUN 30 H Creatinine 8.8 H Glucose 182 H POC Glucose 170 H 145 H Lactic Acid Calcium 7.9 L ALT Troponin T C-Reactive Protein Albumin Triglycerides HDL Cholesterol Vitamin B12 Folate 06/30/18 06/30/18 07/01/18 16:44 22:06 07:21 WBC 11.8 H RBC 3.32 L Hgb Hct MCV 105 H MCH 35 H RDW 15.5 H Plt Count 125 L Lymph % (Auto) Lymph # Baso # Seg Neutrophils % Seg Neuts % (Manual) Lymphocytes % (Manual) Nucleated RBC % Seg Neutrophils # Seg Neutrophils # Man Lymphocytes # (Manual) Monocytes # (Manual) D-Dimer Heparin Anti-Xa Level Sodium Potassium Chloride Carbon Dioxide BUN Creatinine Glucose POC Glucose 155 H 174 H Lactic Acid Calcium ALT Troponin T C-Reactive Protein Albumin Triglycerides HDL Cholesterol Vitamin B12 Folate 07/01/18 07/01/18 07/01/18 07:21 08:22 11:38 WBC RBC Hgb Hct MCV MCH RDW Plt Count Lymph % (Auto) Lymph # Baso # Seg Neutrophils % Seg Neuts % (Manual) Lymphocytes % (Manual) Nucleated RBC % Seg Neutrophils # Seg Neutrophils # Man Lymphocytes # (Manual) Monocytes # (Manual) D-Dimer Heparin Anti-Xa Level Sodium 134 L Potassium Chloride 95.9 L Carbon Dioxide BUN 31 H Creatinine 8.4 H Glucose 151 H POC Glucose 117 H 166 H Lactic Acid Calcium 7.8 L ALT Troponin T C-Reactive Protein Albumin Triglycerides HDL Cholesterol Vitamin B12 Folate 07/01/18 07/01/18 07/01/18 13:32 13:32 16:27 WBC RBC Hgb Hct MCV MCH RDW Plt Count Lymph % (Auto) Lymph # Baso # Seg Neutrophils % Seg Neuts % (Manual) Lymphocytes % (Manual) Nucleated RBC % Seg Neutrophils # Seg Neutrophils # Man Lymphocytes # (Manual) Monocytes # (Manual) D-Dimer Heparin Anti-Xa Level Sodium Potassium Chloride Carbon Dioxide BUN Creatinine Glucose POC Glucose 149 H Lactic Acid 2.20 H* Calcium ALT Troponin T C-Reactive Protein 7.40 H Albumin Triglycerides HDL Cholesterol Vitamin B12 Folate 07/01/18 07/01/18 07/02/18 19:35 21:36 05:22 WBC RBC Hgb Hct MCV MCH RDW Plt Count Lymph % (Auto) Lymph # Baso # Seg Neutrophils % Seg Neuts % (Manual) Lymphocytes % (Manual) Nucleated RBC % Seg Neutrophils # Seg Neutrophils # Man Lymphocytes # (Manual) Monocytes # (Manual) D-Dimer Heparin Anti-Xa Level Sodium Potassium Chloride Carbon Dioxide BUN Creatinine Glucose POC Glucose 129 H Lactic Acid 2.60 H* 2.20 H* Calcium ALT Troponin T C-Reactive Protein Albumin Triglycerides HDL Cholesterol Vitamin B12 Folate 07/02/18 07/02/18 07/02/18 05:22 05:22 07:11 WBC 12.6 H RBC 3.51 L Hgb Hct MCV 105 H MCH 35 H RDW Plt Count 132 L Lymph % (Auto) Lymph # Baso # Seg Neutrophils % Seg Neuts % (Manual) 92.0 H Lymphocytes % (Manual) 2.0 L Nucleated RBC % Seg Neutrophils # Seg Neutrophils # Man 11.6 H Lymphocytes # (Manual) 0.3 L Monocytes # (Manual) D-Dimer Heparin Anti-Xa Level Sodium 131 L Potassium 3.3 L Chloride 93.1 L Carbon Dioxide BUN 31 H Creatinine 7.5 H Glucose 228 H POC Glucose 215 H Lactic Acid Calcium 7.7 L ALT Troponin T C-Reactive Protein Albumin Triglycerides HDL Cholesterol Vitamin B12 Folate 07/02/18 07/02/18 07/03/18 15:35 21:56 10:56 WBC RBC Hgb Hct MCV MCH RDW Plt Count Lymph % (Auto) Lymph # Baso # Seg Neutrophils % Seg Neuts % (Manual) Lymphocytes % (Manual) Nucleated RBC % Seg Neutrophils # Seg Neutrophils # Man Lymphocytes # (Manual) Monocytes # (Manual) D-Dimer Heparin Anti-Xa Level Sodium 130 L Potassium Chloride 91.6 L Carbon Dioxide BUN 33 H Creatinine 7.8 H Glucose POC Glucose 123 H 135 H Lactic Acid Calcium 7.7 L ALT Troponin T C-Reactive Protein Albumin Triglycerides HDL Cholesterol Vitamin B12 Folate 07/03/18 07/03/18 07/03/18 11:00 21:03 22:06 WBC 11.9 H RBC 3.59 L Hgb Hct MCV 103 H MCH 35 H RDW Plt Count Lymph % (Auto) Lymph # Baso # Seg Neutrophils % Seg Neuts % (Manual) 94.0 H Lymphocytes % (Manual) 5.0 L Nucleated RBC % Seg Neutrophils # Seg Neutrophils # Man 11.2 H Lymphocytes # (Manual) 0.6 L Monocytes # (Manual) D-Dimer Heparin Anti-Xa Level 0.28 L Sodium Potassium Chloride Carbon Dioxide BUN Creatinine Glucose POC Glucose 177 H Lactic Acid Calcium ALT Troponin T C-Reactive Protein Albumin Triglycerides HDL Cholesterol Vitamin B12 Folate 07/04/18 07/04/18 07/04/18 01:08 05:22 05:22 WBC 13.1 H RBC Hgb Hct MCV 104 H MCH 35 H RDW Plt Count 139 L Lymph % (Auto) 5.0 L Lymph # 0.7 L Baso # 0.2 H Seg Neutrophils % 87.7 H Seg Neuts % (Manual) Lymphocytes % (Manual) Nucleated RBC % Seg Neutrophils # 11.5 H Seg Neutrophils # Man Lymphocytes # (Manual) Monocytes # (Manual) D-Dimer Heparin Anti-Xa Level Sodium 132 L Potassium 3.1 L Chloride 92.4 L Carbon Dioxide BUN 30 H Creatinine 7.4 H Glucose 113 H POC Glucose 106 H Lactic Acid Calcium 7.8 L ALT Troponin T C-Reactive Protein Albumin Triglycerides HDL Cholesterol Vitamin B12 Folate 07/04/18 07/04/18 07/04/18 05:22 12:15 14:59 WBC RBC Hgb Hct MCV MCH RDW Plt Count Lymph % (Auto) Lymph # Baso # Seg Neutrophils % Seg Neuts % (Manual) Lymphocytes % (Manual) Nucleated RBC % Seg Neutrophils # Seg Neutrophils # Man Lymphocytes # (Manual) Monocytes # (Manual) D-Dimer Heparin Anti-Xa Level 1.31 H 1.70 H Sodium Potassium Chloride Carbon Dioxide BUN Creatinine Glucose POC Glucose 200 H Lactic Acid Calcium ALT Troponin T C-Reactive Protein Albumin Triglycerides HDL Cholesterol Vitamin B12 Folate 07/04/18 07/05/18 07/05/18 20:56 06:17 06:17 WBC RBC 3.51 L Hgb Hct MCV 104 H MCH 35 H RDW Plt Count Lymph % (Auto) 7.8 L Lymph # 0.7 L Baso # Seg Neutrophils % 85.2 H Seg Neuts % (Manual) Lymphocytes % (Manual) Nucleated RBC % Seg Neutrophils # Seg Neutrophils # Man Lymphocytes # (Manual) Monocytes # (Manual) D-Dimer Heparin Anti-Xa Level Sodium 132 L Potassium 3.1 L Chloride 92.7 L Carbon Dioxide BUN 29 H Creatinine 7.3 H Glucose 115 H POC Glucose 133 H Lactic Acid Calcium 7.9 L ALT Troponin T C-Reactive Protein Albumin Triglycerides HDL Cholesterol Vitamin B12 Folate 07/05/18 07/06/18 07/06/18 23:47 06:53 06:53 WBC RBC 3.47 L Hgb Hct MCV 104 H MCH 35 H RDW Plt Count Lymph % (Auto) Lymph # Baso # Seg Neutrophils % Seg Neuts % (Manual) 93.0 H Lymphocytes % (Manual) 2.0 L Nucleated RBC % Seg Neutrophils # Seg Neutrophils # Man 8.6 H Lymphocytes # (Manual) 0.2 L Monocytes # (Manual) D-Dimer Heparin Anti-Xa Level Sodium 132 L Potassium 3.2 L Chloride 94.5 L Carbon Dioxide BUN 32 H Creatinine 8.7 H Glucose 106 H POC Glucose 112 H Lactic Acid Calcium 7.8 L ALT Troponin T C-Reactive Protein Albumin Triglycerides HDL Cholesterol Vitamin B12 Folate 07/06/18 07/06/18 07/07/18 16:23 22:56 07:56 WBC RBC Hgb Hct MCV MCH RDW Plt Count Lymph % (Auto) Lymph # Baso # Seg Neutrophils % Seg Neuts % (Manual) Lymphocytes % (Manual) Nucleated RBC % Seg Neutrophils # Seg Neutrophils # Man Lymphocytes # (Manual) Monocytes # (Manual) D-Dimer Heparin Anti-Xa Level Sodium Potassium Chloride Carbon Dioxide BUN Creatinine Glucose POC Glucose 126 H 139 H 181 H Lactic Acid Calcium ALT Troponin T C-Reactive Protein Albumin Triglycerides HDL Cholesterol Vitamin B12 Folate 07/07/18 07/07/18 07/07/18 09:35 09:35 12:52 WBC RBC Hgb Hct MCV 105 H MCH 35 H RDW Plt Count Lymph % (Auto) 6.3 L Lymph # 0.6 L Baso # Seg Neutrophils % 87.9 H Seg Neuts % (Manual) Lymphocytes % (Manual) Nucleated RBC % Seg Neutrophils # 8.2 H Seg Neutrophils # Man Lymphocytes # (Manual) Monocytes # (Manual) D-Dimer Heparin Anti-Xa Level Sodium 130 L Potassium 3.4 L Chloride 90.3 L Carbon Dioxide BUN 29 H Creatinine 8.0 H Glucose 201 H POC Glucose 161 H Lactic Acid Calcium 8.0 L ALT Troponin T C-Reactive Protein Albumin Triglycerides HDL Cholesterol Vitamin B12 Folate 07/07/18 07/08/18 07/08/18 21:56 05:19 05:19 WBC 12.7 H RBC Hgb Hct MCV 104 H MCH 35 H RDW Plt Count Lymph % (Auto) Lymph # Baso # Seg Neutrophils % Seg Neuts % (Manual) 92.0 H Lymphocytes % (Manual) 5.0 L Nucleated RBC % 1.0 H Seg Neutrophils # Seg Neutrophils # Man 11.7 H Lymphocytes # (Manual) 0.6 L Monocytes # (Manual) D-Dimer Heparin Anti-Xa Level Sodium 134 L Potassium 3.4 L Chloride 93.6 L Carbon Dioxide BUN 30 H Creatinine 8.0 H Glucose 184 H POC Glucose 162 H Lactic Acid Calcium ALT Troponin T C-Reactive Protein Albumin Triglycerides HDL Cholesterol Vitamin B12 Folate 07/08/18 07/08/18 07/08/18 05:19 05:19 08:25 WBC RBC Hgb Hct MCV MCH RDW Plt Count Lymph % (Auto) Lymph # Baso # Seg Neutrophils % Seg Neuts % (Manual) Lymphocytes % (Manual) Nucleated RBC % Seg Neutrophils # Seg Neutrophils # Man Lymphocytes # (Manual) Monocytes # (Manual) D-Dimer Heparin Anti-Xa Level Sodium Potassium Chloride Carbon Dioxide BUN Creatinine Glucose POC Glucose 200 H Lactic Acid Calcium ALT Troponin T C-Reactive Protein Albumin Triglycerides HDL Cholesterol Vitamin B12 1416 H Folate 2.39 L 07/08/18 07/08/18 07/08/18 11:48 16:14 21:53 WBC RBC Hgb Hct MCV MCH RDW Plt Count Lymph % (Auto) Lymph # Baso # Seg Neutrophils % Seg Neuts % (Manual) Lymphocytes % (Manual) Nucleated RBC % Seg Neutrophils # Seg Neutrophils # Man Lymphocytes # (Manual) Monocytes # (Manual) D-Dimer Heparin Anti-Xa Level Sodium Potassium Chloride Carbon Dioxide BUN Creatinine Glucose POC Glucose 202 H 176 H 219 H Lactic Acid Calcium ALT Troponin T C-Reactive Protein Albumin Triglycerides HDL Cholesterol Vitamin B12 Folate 07/09/18 07/09/18 07/09/18 07:50 09:51 09:51 WBC 15.8 H RBC Hgb Hct 43.4 H MCV 105 H MCH 34 H RDW Plt Count Lymph % (Auto) Lymph # Baso # Seg Neutrophils % Seg Neuts % (Manual) 94.0 H Lymphocytes % (Manual) 3.0 L Nucleated RBC % 1.0 H Seg Neutrophils # Seg Neutrophils # Man 14.9 H Lymphocytes # (Manual) 0.5 L Monocytes # (Manual) D-Dimer Heparin Anti-Xa Level Sodium 135 L Potassium Chloride 95.5 L Carbon Dioxide BUN 29 H Creatinine 8.4 H Glucose 204 H POC Glucose 163 H Lactic Acid Calcium ALT Troponin T C-Reactive Protein Albumin Triglycerides HDL Cholesterol Vitamin B12 Folate 07/09/18 07/09/18 07/09/18 11:50 18:47 22:16 WBC RBC Hgb Hct MCV MCH RDW Plt Count Lymph % (Auto) Lymph # Baso # Seg Neutrophils % Seg Neuts % (Manual) Lymphocytes % (Manual) Nucleated RBC % Seg Neutrophils # Seg Neutrophils # Man Lymphocytes # (Manual) Monocytes # (Manual) D-Dimer Heparin Anti-Xa Level Sodium Potassium Chloride Carbon Dioxide BUN Creatinine Glucose POC Glucose 156 H 176 H 189 H Lactic Acid Calcium ALT Troponin T C-Reactive Protein Albumin Triglycerides HDL Cholesterol Vitamin B12 Folate 07/10/18 07/10/18 07/10/18 05:35 08:22 08:52 WBC 17.9 H RBC Hgb Hct MCV 105 H MCH 34 H RDW Plt Count Lymph % (Auto) Lymph # Baso # Seg Neutrophils % Seg Neuts % (Manual) 87.0 H Lymphocytes % (Manual) 6.0 L Nucleated RBC % Seg Neutrophils # Seg Neutrophils # Man 15.6 H Lymphocytes # (Manual) 1.1 L Monocytes # (Manual) 1.1 H D-Dimer Heparin Anti-Xa Level Sodium 135 L Potassium Chloride 92.8 L Carbon Dioxide BUN 27 H Creatinine 7.5 H Glucose 175 H POC Glucose 129 H Lactic Acid Calcium ALT Troponin T C-Reactive Protein Albumin Triglycerides HDL Cholesterol Vitamin B12 Folate 07/10/18 07/10/18 07/10/18 11:47 18:22 21:32 WBC RBC Hgb Hct MCV MCH RDW Plt Count Lymph % (Auto) Lymph # Baso # Seg Neutrophils % Seg Neuts % (Manual) Lymphocytes % (Manual) Nucleated RBC % Seg Neutrophils # Seg Neutrophils # Man Lymphocytes # (Manual) Monocytes # (Manual) D-Dimer Heparin Anti-Xa Level Sodium Potassium Chloride Carbon Dioxide BUN Creatinine Glucose POC Glucose 189 H 211 H 306 H Lactic Acid Calcium ALT Troponin T C-Reactive Protein Albumin Triglycerides HDL Cholesterol Vitamin B12 Folate 07/11/18 07/11/18 07/11/18 04:10 07:36 11:49 WBC 19.4 H RBC Hgb Hct MCV 107 H MCH 35 H RDW 15.3 H Plt Count Lymph % (Auto) Lymph # Baso # Seg Neutrophils % Seg Neuts % (Manual) Lymphocytes % (Manual) Nucleated RBC % Seg Neutrophils # Seg Neutrophils # Man Lymphocytes # (Manual) Monocytes # (Manual) D-Dimer Heparin Anti-Xa Level Sodium Potassium Chloride Carbon Dioxide BUN Creatinine Glucose POC Glucose 113 H 123 H Lactic Acid Calcium ALT Troponin T C-Reactive Protein Albumin Triglycerides HDL Cholesterol Vitamin B12 Folate Allied health notes reviewed: nursing
[2018-07-11 14:25] LABS: Band Neutrophils # (Manual) 0.6 K/mm3; Basophils % (Manual) 0 % (0.0-1.8); Eosinophils % (Manual) 0 % (0.0-4.3); Macrocytosis 1+; Platelet Clumps Few; Platelet Estimate Consistent w Auto; Total Cells Counted 100
[2018-07-11] MEDS: MAXIPIME/NS 1 GM/100 ML 1 GM/100 ML BAG IV SCH (19:17)
[2018-07-11] MEDS: MORPHINE IV PRN (23:06)
[2018-07-12 01:31] LABS: Hematocrit 41.2 % (30.3-42.9); Hemoglobin 13.7 gm/dl (10.1-14.3); Mean Corpuscular HGB Conc 33 % (30-34); Mean Corpuscular Volume 106 fl (79-97); Red Blood Count 3.88 M/mm3 (3.65-5.03); Red Cell Distribution Width 14.3 % (13.2-15.2)
[2018-07-12 01:34] LABS: Platelet Count 253 K/mm3 (140-440)
[2018-07-12 02:43] LABS: Total Cells Counted 100
[2018-07-12 02:44] LABS: Anisocytosis 1+; Basophils % (Manual) 0 % (0.0-1.8); Eosinophils % (Manual) 0 % (0.0-4.3); Large Platelets 1+
[2018-07-12 02:45] LABS: Platelet Estimate Consistent w Auto; Poikilocytosis 1+
[2018-07-12] MEDS: HumaLOG SUB-Q SCH ×2 (07:30→12:36)
[2018-07-12] MEDS: PROAMATINE PO SCH ×3 (08:00→16:02)
[2018-07-12] MEDS: RENVELA PO SCH ×3 (09:19→17:54)
--- NOTE | 2018-07-12 10:34 | XRay Report ---
ABDOMEN RADIOGRAPHS INDICATION: Retention of peritoneal dialysis fluid. COMPARISON: 07/02/2018 CT. FINDINGS: Frontal abdominal radiographs, 3 images, demonstrate a peritoneal dialysis catheter on the left with its tip coiled in the left hemipelvis, overlying the sacrum. Few air containing small bowel loops in the midabdomen dilated up to 3.3 cm with another air containing bowel loop just above it measuring 5.5 cm. Minimal bulging of the flanks. No focal suspicious calcifications, pneumatosis or pneumoperitoneum. Osteopenia/osteoporosis, few lower lumbar degenerative changes and right hip arthroplasty. CONCLUSION: Possible small bowel ileus and few other iatrogenic changes, as described. Thank you for the opportunity to participate in this patient's care.
--- NOTE | 2018-07-12 10:38 | Progress Note ---
Assessment and Plan Cultures: 06/29/2018 Blood culture: No growth 07/01/2018 peritoneal dialysate culture: No growth 07/08/2018 blood culture: No growth at 48 hours 07/10/2018 peritoneal fluid culture: no growth A/P: 67-year-old female with ESRD on peritoneal dialysis, hypertension, hyperlipidemia, diabetes mellitus type 2 who presented to the emergency room and was hospitalized on 06/29/2018 with complaints of fall. Now with: 1) Sepsis: Leukocytois trending down. secondary to PD associated peritonitis. Chest x-ray without pneumonia, blood cultures with no growth. Patient doesn't make any urine, UTI unlikely. No report of diarrhea. 2 ESRD on PD: Renally dose antibiotics. 3) Left leg DVT: on anticoagulation. Recs: Continue cefepime and vancomycin renally adjusted, D3 Follow up abdominal US - report pending Follow up PD fluid culture- recommend repeat PD fluid analysis on Sunday Continue to monitor leukocytosis Dr. 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 Please call for questions Alka Varner NP [facility] M: [phone] O:[phone] Subjective Date of service: 07/12/18 Principal diagnosis: dvt leg Interval history: Patient seen and examined. Laying in bed asleep, easily arousable. Reports abdominal tenderness today. No fevers. Objective - Exam Narrative Exam: Constitutional: Alert, cooperative. Mild distress observed. Head, Ears, Nose: Normocephalic, atraumatic. External ears, nose normal Eyes: Conjunctivae/corneas clear. No icterus. No ptosis. Neck: Supple, no meningeal signs Oral: mucosa moist, no thrush Cardiovascular: S1, S2 normal. Respiratory: Good air entry, clear to auscultation bilaterally GI: Soft, mildly tender,+ small drainage at PD site. Musculoskeletal: No pedal edema, no cyanosis. Skin: No rash or abscess Hem/Lymphatic: No palpable cervical or supraclavicular nodes. No lymphangitis Psych: Mood ok. Affect normal Neurological: Awake, alert, oriented. No gross abnormality - Constitutional Vitals: Vital Signs Temp Pulse Resp BP Pulse Ox 98.5 F 92 H 20 89/44 94 07/12/18 07:18 07/12/18 07:18 07/12/18 07:18 07/12/18 07:18 07/12/18 07:18 Temperature -Last 24 Hours Temperature 98.5 F Temperature 97.2 F Temperature 97.2 F Temperature 97.4 F Temperature 98.7 F - Labs CBC & Chem 7: 07/12/18 00:48 07/10/18 08:22 Labs: Abnormal lab results 07/11/18 07/11/18 07/11/18 Range/Units 04:10 11:49 17:35 WBC 19.4 H (4.5-11.0) K/mm3 MCV 107 H (79-97) fl MCH 35 H (28-32) pg RDW 15.3 H (13.2-15.2) % Seg Neuts % (Manual) 89.0 H (40.0-70.0) % Lymphocytes % (Manual) 4.0 L (13.4-35.0) % Seg Neutrophils # Man 17.3 H (1.8-7.7) K/mm3 Lymphocytes # (Manual) 0.8 L (1.2-5.4) K/mm3 Monocytes # (Manual) (0.0-0.8) K/mm3 POC Glucose 123 H 207 H (70-105) 07/11/18 07/12/18 07/12/18 Range/Units 23:28 00:48 04:05 WBC 17.0 H (4.5-11.0) K/mm3 MCV 106 H (79-97) fl MCH 35 H (28-32) pg RDW (13.2-15.2) % Seg Neuts % (Manual) 92.0 H (40.0-70.0) % Lymphocytes % (Manual) 3.0 L (13.4-35.0) % Seg Neutrophils # Man 15.6 H (1.8-7.7) K/mm3 Lymphocytes # (Manual) 0.5 L (1.2-5.4) K/mm3 Monocytes # (Manual) 0.9 H (0.0-0.8) K/mm3 POC Glucose 188 H 147 H (70-105) 07/12/18 Range/Units 09:21 WBC (4.5-11.0) K/mm3 MCV (79-97) fl MCH (28-32) pg RDW (13.2-15.2) % Seg Neuts % (Manual) (40.0-70.0) % Lymphocytes % (Manual) (13.4-35.0) % Seg Neutrophils # Man (1.8-7.7) K/mm3 Lymphocytes # (Manual) (1.2-5.4) K/mm3 Monocytes # (Manual) (0.0-0.8) K/mm3 POC Glucose 125 H (70-105)
[2018-07-12] MEDS ORDERED: HEPARIN 10,000 UNITS/10 ML IV ONE (11:13)
--- NOTE | 2018-07-12 11:17 | Progress Note ---
Assessment and Plan Assessment and plan: Sepsis not present on admission - Worsening leukocytosis, no fever - Etiology possibly PD associated peritonitis. - f/u PD fluid cell count and culture - Continue cefepime and vancomycin renally adjusted, D3 - Follow up abdominal US - report pending - Continue to monitor leukocytosis Hypotension - cont midodrine for now HLD, on statin ESRD on PD, Nephrology following Diabetes type 2, diet controlled, cont SSRI Elevated troponin/NSTEMI type 2 - Cardiology following - Stress test negative DVT left lower ext. Cont. Eliquis. Debility PT evaluation done patient unable to stand, and she lives alone. discussed with case management Patient for LTAC evaluation History Interval history: Patient is a 67-year-old female past medical history of end-stage renal disease on peritoneal dialysis, hypertension hyperlipidemia, diabetes mellitus type 2 on diet control, presented to ER by EMS after having a fall around 9 AM in the morning but she had no loss of consciousness or hit her head. She was sitting on bed and accidentally "slid to ground". She was unable to get up from the bed as she was feeling very weak in her legs. Her family called emergency services to break into her house around 5pm. She was then brought to the ER for further evaluation and management . She noted to have highly elevated d-dimer, elevated white count. In the ED, patient was hypotensive w/ WBC 24.8. CTA chest was unremarkable. V/Q scan was also low prob PE. She denied fever, chills, PD fluid has been clear. She was placed on Levophed, given IV Rocephin and admitted. she was diagnosed with SIRS, hypotension. She improved on Levophed was weaned off. She had swelling of the legs on both ultrasound confirmed a DVT of left lower extremity for which she has been . However patient has failure to thrive, debility, she feels very weak and unable to stand. I discussed with case management she started working on acute rehabilitation placement. The patient developed fever and leukocytosis on 07/08/18. Fever resolved but leukocytosis worsened. Antibiotics restarted and blood cultures thus far negative. ID consulted. Nurse reports PD catheter malfunctioning and not draining well Hospitalist Physical - Constitutional Vitals: Temp Pulse Resp BP Pulse Ox 98.5 F 92 H 20 89/44 94 07/12/18 07:18 07/12/18 07:18 07/12/18 07:18 07/12/18 07:18 07/12/18 07:18 General appearance: Present: no acute distress, obese - EENT Eyes: Present: PERRL, EOM intact ENT: hearing intact, clear oral mucosa, dentition normal - Neck Neck: Present: supple, normal ROM - Respiratory Respiratory effort: normal Respiratory: bilateral: CTA - Cardiovascular Rhythm: regular Heart Sounds: Present: S1 & S2. Absent: gallop, rub - Extremities Extremities: no ischemia, No edema, Full ROM - Abdominal General gastrointestinal: soft, non-tender, non-distended, normal bowel sounds - Integumentary Integumentary: Present: clear, warm, dry - Neurologic Neurologic: CNII-XII intact, moves all extremities Results - Labs CBC & Chem 7: 07/12/18 00:48 07/10/18 08:22 Labs: Laboratory Last Values WBC 17.0 K/mm3 (4.5-11.0) H 07/12/18 00:48 RBC 3.88 M/mm3 (3.65-5.03) 07/12/18 00:48 Hgb 13.7 gm/dl (10.1-14.3) 07/12/18 00:48 Hct 41.2 % (30.3-42.9) 07/12/18 00:48 MCV 106 fl (79-97) H 07/12/18 00:48 MCH 35 pg (28-32) H 07/12/18 00:48 MCHC 33 % (30-34) 07/12/18 00:48 RDW 14.3 % (13.2-15.2) 07/12/18 00:48 Plt Count 253 K/mm3 (140-440) 07/12/18 00:48 Lymph % (Auto) 6.3 % (13.4-35.0) L 07/07/18 09:35 [place] % (Auto) 5.4 % (0.0-7.3) 07/07/18 09:35 Eos % (Auto) 0.3 % (0.0-4.3) 07/07/18 09:35 Baso % (Auto) 0.1 % (0.0-1.8) 07/07/18 09:35 Lymph # 0.6 K/mm3 (1.2-5.4) L 07/07/18 09:35 [place] # 0.5 K/mm3 (0.0-0.8) 07/07/18 09:35 Eos # 0.0 K/mm3 (0.0-0.4) 07/07/18 09:35 Baso # 0.0 K/mm3 (0.0-0.1) 07/07/18 09:35 Add Manual Diff Complete 07/12/18 00:48 Total Counted 100 07/12/18 00:48 Seg Neutrophils % Sprigger 07/12/18 00:48 Seg Neuts % (Manual) 92.0 % (40.0-70.0) H 07/12/18 00:48 Band Neutrophils % 0 % 07/12/18 00:48 Lymphocytes % (Manual) 3.0 % (13.4-35.0) L 07/12/18 00:48 Reactive Lymphs % (Man) 0 % 07/12/18 00:48 Monocytes % (Manual) 5.0 % (0.0-7.3) 07/12/18 00:48 Eosinophils % (Manual) 0 % (0.0-4.3) 07/12/18 00:48 Basophils % (Manual) 0 % (0.0-1.8) 07/12/18 00:48 Metamyelocytes % 0 % 07/12/18 00:48 Myelocytes % 0 % 07/12/18 00:48 Promyelocytes % 0 % 07/12/18 00:48 Blast Cells % 0 % 07/12/18 00:48 Nucleated RBC % Not Reportable 07/12/18 00:48 Seg Neutrophils # 8.2 K/mm3 (1.8-7.7) H 07/07/18 09:35 Seg Neutrophils # Man 15.6 K/mm3 (1.8-7.7) H 07/12/18 00:48 Band Neutrophils # 0.0 K/mm3 07/12/18 00:48 Lymphocytes # (Manual) 0.5 K/mm3 (1.2-5.4) L 07/12/18 00:48 Abs React Lymphs (Man) 0.0 K/mm3 07/12/18 00:48 Monocytes # (Manual) 0.9 K/mm3 (0.0-0.8) H 07/12/18 00:48 Eosinophils # (Manual) 0.0 K/mm3 (0.0-0.4) 07/12/18 00:48 Basophils # (Manual) 0.0 K/mm3 (0.0-0.1) 07/12/18 00:48 Metamyelocytes # 0.0 K/mm3 07/12/18 00:48 Myelocytes # 0.0 K/mm3 07/12/18 00:48 Promyelocytes # 0.0 K/mm3 07/12/18 00:48 Blast Cells # 0.0 K/mm3 07/12/18 00:48 WBC Morphology Not Reportable 07/12/18 00:48 Hypersegmented Neuts Not Reportable 07/12/18 00:48 Hyposegmented Neuts Not Reportable 07/12/18 00:48 Hypogranular Neuts Not Reportable 07/12/18 00:48 Smudge Cells Not Reportable 07/12/18 00:48 Toxic Granulation Not Reportable 07/12/18 00:48 Toxic Vacuolation Not Reportable 07/12/18 00:48 Dohle Bodies Not Reportable 07/12/18 00:48 Pelger-Huet Anomaly Not Reportable 07/12/18 00:48 Nomi Rods Not Reportable 07/12/18 00:48 Platelet Estimate Consistent w auto 07/12/18 00:48 Clumped Platelets Not Reportable 07/12/18 00:48 Plt Clumps, EDTA Not Reportable 07/12/18 00:48 Large Platelets 1+ 07/12/18 00:48 Giant Platelets Not Reportable 07/12/18 00:48 Platelet Satelliting Not Reportable 07/12/18 00:48 Plt Morphology Comment Not Reportable 07/12/18 00:48 RBC Morphology Not Reportable 07/12/18 00:48 Dimorphic RBCs Not Reportable 07/12/18 00:48 Polychromasia Not Reportable 07/12/18 00:48 Hypochromasia Not Reportable 07/12/18 00:48 Poikilocytosis 1+ 07/12/18 00:48 Anisocytosis 1+ 07/12/18 00:48 Microcytosis Not Reportable 07/12/18 00:48 Macrocytosis Not Reportable 07/12/18 00:48 Spherocytes Not Reportable 07/12/18 00:48 Pappenheimer Bodies Not Reportable 07/12/18 00:48 Sickle Cells Not Reportable 07/12/18 00:48 Target Cells Not Reportable 07/12/18 00:48 Tear Drop Cells Not Reportable 07/12/18 00:48 Ovalocytes Not Reportable 07/12/18 00:48 Helmet Cells Not Reportable 07/12/18 00:48 Barnhart-Snead Bodies Not Reportable 07/12/18 00:48 [place] Rings Not Reportable 07/12/18 00:48 [place] Cells Not Reportable 07/12/18 00:48 Bite Cells Not Reportable 07/12/18 00:48 Crenated Cell Not Reportable 07/12/18 00:48 Elliptocytes Not Reportable 07/12/18 00:48 Acanthocytes (Spur) Not Reportable 07/12/18 00:48 Rouleaux Not Reportable 07/12/18 00:48 Hemoglobin C Crystals Not Reportable 07/12/18 00:48 Schistocytes Not Reportable 07/12/18 00:48 Malaria parasites Not Reportable 07/12/18 00:48 Navneet Bodies Not Reportable 07/12/18 00:48 Hem Pathologist Commnt No 07/12/18 00:48 PT 13.6 Sec. (12.2-14.9) 07/03/18 12:39 INR 0.98 (0.87-1.13) 07/03/18 12:39 APTT 34.1 Sec. (24.2-36.6) 07/03/18 12:39 D-Dimer > 46985 ng/mlDDU (0-234) H 06/28/18 22:26 Heparin Anti-Xa Level 1.70 U.I./ml (0.3-0.7) H 07/04/18 14:59 Sodium 135 mmol/L (137-145) L 07/10/18 08:22 Potassium 3.7 mmol/L (3.6-5.0) 07/10/18 08:22 Chloride 92.8 mmol/L (98-107) L 07/10/18 08:22 Carbon Dioxide 25 mmol/L (22-30) 07/10/18 08:22 Anion Gap 21 mmol/L 07/10/18 08:22 BUN 27 mg/dL (7-17) H 07/10/18 08:22 Creatinine 7.5 mg/dL (0.7-1.2) H 07/10/18 08:22 Estimated GFR 7 ml/min 07/10/18 08:22 BUN/Creatinine Ratio 4 % 07/10/18 08:22 Glucose 175 mg/dL (65-100) H 07/10/18 08:22 POC Glucose 125 (70-105) H 07/12/18 09:21 Lactic Acid 2.20 mmol/L (0.7-2.0) H* 07/02/18 05:22 Calcium 8.5 mg/dL (8.4-10.2) 07/10/18 08:22 Total Bilirubin 0.40 mg/dL (0.1-1.2) 06/28/18 20:54 AST 25 units/L (5-40) 06/28/18 20:54 ALT 5 units/L (7-56) L 06/28/18 20:54 Alkaline Phosphatase 88 units/L (35-129) 06/28/18 20:54 Total Creatine Kinase 118 units/L (30-135) 06/29/18 20:37 Troponin T 0.077 ng/mL (0.00-0.029) H 06/29/18 20:37 C-Reactive Protein 7.40 mg/dL (0.00-1.30) H 07/01/18 13:32 Total Protein 7.4 g/dL (6.3-8.2) 06/28/18 20:54 Albumin 3.2 g/dL (3.9-5) L 06/28/18 20:54 Albumin/Globulin Ratio 0.8 % 06/28/18 20:54 Triglycerides 194 mg/dL (2-149) H 06/28/18 10:38 Cholesterol 167 mg/dL (50-199) 06/28/18 10:38 LDL Cholesterol Direct 61 mg/dL (50-130) 06/28/18 10:38 HDL Cholesterol 68 mg/dL (40-59) H 06/28/18 10:38 Cholesterol/HDL Ratio 2.45 % 06/28/18 10:38 Vitamin B12 1416 pg/mL (211-911) H 07/08/18 05:19 Folate 2.39 ng/mL (7.3-26.0) L 07/08/18 05:19 Random Vancomycin 15.2 ug/mL (0-40.0) 07/12/18 05:38 Active Medications - Current Medications Current Medications: Generic Name Dose Route Start Last Admin Trade Name Freq PRN Reason Stop Dose Admin Apixaban 5 mg 07/04/18 16:00 07/11/18 22:57 Eliquis PO 5 mg Q12HR DIANE Administration Protocol Aspirin 81 mg 06/29/18 13:00 07/11/18 10:58 Baby Aspirin PO 81 mg QDAY DIANE Administration Atorvastatin Calcium 40 mg 06/29/18 22:00 07/11/18 22:56 Lipitor PO 40 mg QHS DIANE Administration Calcitriol 0.5 mcg 06/29/18 13:00 07/11/18 10:58 Rocaltrol PO 0.5 mcg QDAY DIANE Administration Docusate Sodium 100 mg 07/02/18 10:00 07/11/18 22:57 Colace PO Not Given BID DIANE Folic Acid 1 mg 07/10/18 14:00 07/11/18 10:58 Folvite PO 1 mg QDAY DIANE Administration Cefepime HCl 1 gm in 100 mls @ 200 mls/hr 07/10/18 20:00 07/11/18 19:17 Maxipime/Ns 1 Gm/100 Ml IV 200 mls/hr QPM DIANE Administration Protocol Insulin Human Lispro 0 unit 06/29/18 22:00 07/11/18 18:17 Humalog SUB-Q Not Given ACHS [facility] Protocol Lidocaine 1 each 06/29/18 13:00 07/11/18 10:57 Lidoderm 5% TD 1 each QDAY DIANE Administration Midodrine 10 mg 07/01/18 14:00 07/12/18 09:19 Proamatine PO 10 mg TID DIANE Administration Morphine Sulfate 2 mg 07/08/18 14:51 07/11/18 23:06 Morphine IV 2 mg Q4H PRN Administration Pain, Moderate (4-6) Pantoprazole Sodium 40 mg 07/08/18 10:00 07/11/18 10:58 Protonix PO 40 mg QDAY DIANE Administration Peritoneal Dialysis Solution 2,000 ml 07/06/18 14:00 07/11/18 19:18 Dianeal Low Calcium W/2.5% Dextrose IP 2,000 ml 0600,1000,1400,1800 DIANE Administration Polyethylene Glycol 17 gm 07/02/18 10:00 07/11/18 10:59 Miralax 3350 PO Not Given QDAY DIANE Sevelamer Carbonate 1,600 mg 06/29/18 12:00 07/12/18 09:19 Renvela PO 1,600 mg TIDWM DIANE Administration Nutrition/Malnutrition Assess - Dietary Evaluation Nutrition/Malnutrition Findings: Nutrition Notes Start: 07/05/18 14:49 Freq: Status: Active Protocol: Document 07/09/18 14:17 EB (Rec: 07/09/18 14:32 EB [id number]) Co-Sign 07/09/18 14:17 RM Nutrition Notes Initial or Follow up Reassessment Current Diagnosis Diabetes Other Pertinent Diagnosis ESRD on PD, Possible sepsis Current Diet Renal,Cardiac with Nepro daily Labs/Tests Reviewed Pertinent Medications Reviewed Height 5 ft 6 in Weight 102.5 kg [place] Body Weight (kg) 59.09 BMI 36.4 Weight change and time frame Wt increase likely due to fluid change Subjective/Other Information Pt received PD earlier today. Pt resting in bed and states she ate about 50% of her breakfast and meals yesterday. She had not touched her lunch that was delivered this afternoon. Pt reports fair appetite, but says she really enjoys and drinks her ONS daily. Percent of energy/protein needs met: 86%/100% Burn Absent Trauma Absent Current % PO Fair (50-74%) #1 Nutrition Diagnosis Inadequate oral intake As Evidenced by Signs and Symptoms pt meeting 86% and 100% of edis and pro needs, respectively Diagnosis Progress(for reassessment Resolved documentation) Is patient on ventilator? No Is Patient Ambulatory and/or Out of Bed Yes REE-([place]-St. Jeor-ambulatory/OOB) [ [id number]] Kcal/Kg value to use for calculation 17 Approximate Energy Requirements Using 1743 kcal/Kg Calculation Used for Recommendations Kcal/kg Additional Notes Protein Needs: 92-100g (1.2-1. 3g/kg, 77kg adjBW) Fluid Needs: 1 ml/kcal Nutrition Intervention Change Diet Order: Continue current Add Supplement/Snack (indicate name/kcal Nepro 1 daily /protein ) Provides kCal: 425 Provides Protein (gm) 19 Goal #1 Continue to meet at least 75% of calorie and protein needs via PO and ONS intakes Anticipated Discharge Needs: Renal diet Follow-Up By: 07/16/18 Additional Comments F/u: PO and ONS intakes
[2018-07-12] MEDS: DIANEAL LOW CALCIUM W/2.5% DEXTROSE IP SCH ×2 (12:18→14:00)
[2018-07-12] MEDS: LIDODERM 5% TD SCH (12:33)
[2018-07-12] MEDS: PROTONIX PO SCH (12:34)
[2018-07-12] MEDS: FOLVITE PO SCH (12:34)
[2018-07-12] MEDS: COLACE PO SCH (12:35)
[2018-07-12] MEDS: BABY ASPIRIN PO SCH (12:35)
[2018-07-12] MEDS: ELIQUIS PO SCH (12:46)
[2018-07-12] MEDS: ROCALTROL PO SCH (13:02)
[2018-07-12] MEDS: MIRALAX 3350 PO SCH (13:12)
--- NOTE | 2018-07-12 13:48 | Progress Note ---
Assessment and Plan Severe sepsis with septic shock HLD ESRD on PD Diabetes Elevated troponin/NSTEMI type 2 LLExt DVT Abdominal pain -Bowel regimen, serial abdominal exams - Nephrology for peritoneal dialysis - No infiltrates noted on CTA chest/chest x-ray/VQ scan -Increase activity -On midodrine for blood pressure support -De-escalate antibiotics based on cultures -Continue anticoagulation with Eliquis, monitor for bleeding complications -Influenza and pneumonia vaccination per protocol prior to discharge -Continue all supportive care Continue to monitor closely Subjective Date of service: 07/12/18 Principal diagnosis: dvt leg Interval history: Patient is seen today for: Septic Shock (etiology unclear) with lactic acidosis and hypotension; Hyperlipidemia; ESRD on PD; Diabetes type 2; Elevated troponin/NSTEMI type 2 Seen and examined at bedside; 24hour events reviewed; nursing and respiratory care staff consulted; no adverse overnight events reported to me; resting peacefully in bed; looks and feels better; denies acute chest pains or palpitations; No N/V/F/C; has some lower abdominal pain, episode of fecal incontinence this morning( received a dose of lactulose- possible overflow diarrhea), states she does not have an appetite this morning. Objective Vital Signs - 12hr 07/12/18 07/12/18 07/12/18 04:07 04:09 07:18 Temperature 97.2 F L 97.2 F L 98.5 F Pulse Rate 89 89 92 H Respiratory 16 16 20 Rate Blood Pressure 89/44 Blood Pressure 123/85 123/85 [Left] O2 Sat by Pulse 97 94 Oximetry Constitutional: no acute distress, alert Eyes: non-icteric ENT: oropharynx moist, other (mallampati 3) Neck: supple, no lymphadenopathy, no JVD, other (large neck circumference) Effort: normal Ascultation: Bilateral: diminished breath sounds, rhonchi (scant in bases) Percussion: Bilateral: not dull Cardiovascular: regular rate and rhythm, other (No R/M) Gastrointestinal: normoactive bowel sounds, soft, non-distended, other (No HSM, PD cathetr, clean dry site, mild lower abdominal tenderness, no rebound) Integumentary: normal Extremities: no cyanosis, no edema, pulses normal, no ischemia or petechiae Neurologic: normal mental status, non-focal exam (grossly), pupils equal and round, motor strength normal and Psychiatric: mood appropriate, affect normal CBC and BMP: 07/12/18 00:48 07/10/18 08:22 ABG, PT/INR, D-dimer: PT/INR, D-dimer PT 13.6 Sec. (12.2-14.9) 07/03/18 12:39 INR 0.98 (0.87-1.13) 07/03/18 12:39 D-Dimer > 43370 ng/mlDDU (0-234) H 06/28/18 22:26 Abnormal lab findings: Abnormal Labs 06/28/18 06/28/18 06/28/18 10:38 20:54 20:54 WBC 24.8 H RBC Hgb 16.6 H Hct 50.3 H MCV 107 H MCH 35 H RDW 15.6 H Plt Count Lymph % (Auto) Lymph # Baso # Seg Neutrophils % Seg Neuts % (Manual) 95.0 H Lymphocytes % (Manual) 3.0 L Nucleated RBC % Seg Neutrophils # Seg Neutrophils # Man 23.6 H Lymphocytes # (Manual) 0.7 L Monocytes # (Manual) D-Dimer Heparin Anti-Xa Level Sodium 131 L Potassium Chloride 89.6 L Carbon Dioxide 19 L BUN 29 H Creatinine 9.3 H Glucose 174 H POC Glucose Lactic Acid Calcium ALT 5 L Troponin T 0.073 H C-Reactive Protein Albumin 3.2 L Triglycerides 194 H HDL Cholesterol 68 H Vitamin B12 Folate 06/28/18 06/29/18 06/29/18 22:26 12:18 13:30 WBC RBC Hgb Hct MCV MCH RDW Plt Count Lymph % (Auto) Lymph # Baso # Seg Neutrophils % Seg Neuts % (Manual) Lymphocytes % (Manual) Nucleated RBC % Seg Neutrophils # Seg Neutrophils # Man Lymphocytes # (Manual) Monocytes # (Manual) D-Dimer > 24055 H Heparin Anti-Xa Level Sodium Potassium Chloride Carbon Dioxide BUN Creatinine Glucose POC Glucose 168 H Lactic Acid Calcium ALT Troponin T 0.073 H C-Reactive Protein Albumin Triglycerides HDL Cholesterol Vitamin B12 Folate 06/29/18 06/29/18 06/29/18 13:30 14:11 16:36 WBC 19.8 H RBC Hgb 14.7 H Hct 45.4 H MCV 108 H MCH 35 H RDW 15.9 H Plt Count Lymph % (Auto) Lymph # Baso # Seg Neutrophils % Seg Neuts % (Manual) Lymphocytes % (Manual) Nucleated RBC % Seg Neutrophils # Seg Neutrophils # Man Lymphocytes # (Manual) Monocytes # (Manual) D-Dimer Heparin Anti-Xa Level Sodium 133 L Potassium Chloride 91.7 L Carbon Dioxide 20 L BUN 33 H Creatinine 9.9 H Glucose 196 H POC Glucose 165 H Lactic Acid Calcium ALT Troponin T C-Reactive Protein Albumin Triglycerides HDL Cholesterol Vitamin B12 Folate 06/29/18 06/29/18 06/30/18 20:37 22:01 04:49 WBC 14.8 H RBC Hgb Hct MCV 106 H MCH 35 H RDW 15.5 H Plt Count Lymph % (Auto) Lymph # Baso # Seg Neutrophils % Seg Neuts % (Manual) 90.0 H Lymphocytes % (Manual) 5.0 L Nucleated RBC % Seg Neutrophils # Seg Neutrophils # Man 13.3 H Lymphocytes # (Manual) 0.7 L Monocytes # (Manual) D-Dimer Heparin Anti-Xa Level Sodium Potassium Chloride Carbon Dioxide BUN Creatinine Glucose POC Glucose 202 H Lactic Acid Calcium ALT Troponin T 0.077 H C-Reactive Protein Albumin Triglycerides HDL Cholesterol Vitamin B12 Folate 06/30/18 06/30/18 06/30/18 04:49 08:27 12:17 WBC RBC Hgb Hct MCV MCH RDW Plt Count Lymph % (Auto) Lymph # Baso # Seg Neutrophils % Seg Neuts % (Manual) Lymphocytes % (Manual) Nucleated RBC % Seg Neutrophils # Seg Neutrophils # Man Lymphocytes # (Manual) Monocytes # (Manual) D-Dimer Heparin Anti-Xa Level Sodium 134 L Potassium 3.5 L Chloride 94.7 L Carbon Dioxide BUN 30 H Creatinine 8.8 H Glucose 182 H POC Glucose 170 H 145 H Lactic Acid Calcium 7.9 L ALT Troponin T C-Reactive Protein Albumin Triglycerides HDL Cholesterol Vitamin B12 Folate 06/30/18 06/30/18 07/01/18 16:44 22:06 07:21 WBC 11.8 H RBC 3.32 L Hgb Hct MCV 105 H MCH 35 H RDW 15.5 H Plt Count 125 L Lymph % (Auto) Lymph # Baso # Seg Neutrophils % Seg Neuts % (Manual) Lymphocytes % (Manual) Nucleated RBC % Seg Neutrophils # Seg Neutrophils # Man Lymphocytes # (Manual) Monocytes # (Manual) D-Dimer Heparin Anti-Xa Level Sodium Potassium Chloride Carbon Dioxide BUN Creatinine Glucose POC Glucose 155 H 174 H Lactic Acid Calcium ALT Troponin T C-Reactive Protein Albumin Triglycerides HDL Cholesterol Vitamin B12 Folate 07/01/18 07/01/18 07/01/18 07:21 08:22 11:38 WBC RBC Hgb Hct MCV MCH RDW Plt Count Lymph % (Auto) Lymph # Baso # Seg Neutrophils % Seg Neuts % (Manual) Lymphocytes % (Manual) Nucleated RBC % Seg Neutrophils # Seg Neutrophils # Man Lymphocytes # (Manual) Monocytes # (Manual) D-Dimer Heparin Anti-Xa Level Sodium 134 L Potassium Chloride 95.9 L Carbon Dioxide BUN 31 H Creatinine 8.4 H Glucose 151 H POC Glucose 117 H 166 H Lactic Acid Calcium 7.8 L ALT Troponin T C-Reactive Protein Albumin Triglycerides HDL Cholesterol Vitamin B12 Folate 07/01/18 07/01/18 07/01/18 13:32 13:32 16:27 WBC RBC Hgb Hct MCV MCH RDW Plt Count Lymph % (Auto) Lymph # Baso # Seg Neutrophils % Seg Neuts % (Manual) Lymphocytes % (Manual) Nucleated RBC % Seg Neutrophils # Seg Neutrophils # Man Lymphocytes # (Manual) Monocytes # (Manual) D-Dimer Heparin Anti-Xa Level Sodium Potassium Chloride Carbon Dioxide BUN Creatinine Glucose POC Glucose 149 H Lactic Acid 2.20 H* Calcium ALT Troponin T C-Reactive Protein 7.40 H Albumin Triglycerides HDL Cholesterol Vitamin B12 Folate 07/01/18 07/01/18 07/02/18 19:35 21:36 05:22 WBC RBC Hgb Hct MCV MCH RDW Plt Count Lymph % (Auto) Lymph # Baso # Seg Neutrophils % Seg Neuts % (Manual) Lymphocytes % (Manual) Nucleated RBC % Seg Neutrophils # Seg Neutrophils # Man Lymphocytes # (Manual) Monocytes # (Manual) D-Dimer Heparin Anti-Xa Level Sodium Potassium Chloride Carbon Dioxide BUN Creatinine Glucose POC Glucose 129 H Lactic Acid 2.60 H* 2.20 H* Calcium ALT Troponin T C-Reactive Protein Albumin Triglycerides HDL Cholesterol Vitamin B12 Folate 07/02/18 07/02/18 07/02/18 05:22 05:22 07:11 WBC 12.6 H RBC 3.51 L Hgb Hct MCV 105 H MCH 35 H RDW Plt Count 132 L Lymph % (Auto) Lymph # Baso # Seg Neutrophils % Seg Neuts % (Manual) 92.0 H Lymphocytes % (Manual) 2.0 L Nucleated RBC % Seg Neutrophils # Seg Neutrophils # Man 11.6 H Lymphocytes # (Manual) 0.3 L Monocytes # (Manual) D-Dimer Heparin Anti-Xa Level Sodium 131 L Potassium 3.3 L Chloride 93.1 L Carbon Dioxide BUN 31 H Creatinine 7.5 H Glucose 228 H POC Glucose 215 H Lactic Acid Calcium 7.7 L ALT Troponin T C-Reactive Protein Albumin Triglycerides HDL Cholesterol Vitamin B12 Folate 07/02/18 07/02/18 07/03/18 15:35 21:56 10:56 WBC RBC Hgb Hct MCV MCH RDW Plt Count Lymph % (Auto) Lymph # Baso # Seg Neutrophils % Seg Neuts % (Manual) Lymphocytes % (Manual) Nucleated RBC % Seg Neutrophils # Seg Neutrophils # Man Lymphocytes # (Manual) Monocytes # (Manual) D-Dimer Heparin Anti-Xa Level Sodium 130 L Potassium Chloride 91.6 L Carbon Dioxide BUN 33 H Creatinine 7.8 H Glucose POC Glucose 123 H 135 H Lactic Acid Calcium 7.7 L ALT Troponin T C-Reactive Protein Albumin Triglycerides HDL Cholesterol Vitamin B12 Folate 07/03/18 07/03/18 07/03/18 11:00 21:03 22:06 WBC 11.9 H RBC 3.59 L Hgb Hct MCV 103 H MCH 35 H RDW Plt Count Lymph % (Auto) Lymph # Baso # Seg Neutrophils % Seg Neuts % (Manual) 94.0 H Lymphocytes % (Manual) 5.0 L Nucleated RBC % Seg Neutrophils # Seg Neutrophils # Man 11.2 H Lymphocytes # (Manual) 0.6 L Monocytes # (Manual) D-Dimer Heparin Anti-Xa Level 0.28 L Sodium Potassium Chloride Carbon Dioxide BUN Creatinine Glucose POC Glucose 177 H Lactic Acid Calcium ALT Troponin T C-Reactive Protein Albumin Triglycerides HDL Cholesterol Vitamin B12 Folate 07/04/18 07/04/18 07/04/18 01:08 05:22 05:22 WBC 13.1 H RBC Hgb Hct MCV 104 H MCH 35 H RDW Plt Count 139 L Lymph % (Auto) 5.0 L Lymph # 0.7 L Baso # 0.2 H Seg Neutrophils % 87.7 H Seg Neuts % (Manual) Lymphocytes % (Manual) Nucleated RBC % Seg Neutrophils # 11.5 H Seg Neutrophils # Man Lymphocytes # (Manual) Monocytes # (Manual) D-Dimer Heparin Anti-Xa Level Sodium 132 L Potassium 3.1 L Chloride 92.4 L Carbon Dioxide BUN 30 H Creatinine 7.4 H Glucose 113 H POC Glucose 106 H Lactic Acid Calcium 7.8 L ALT Troponin T C-Reactive Protein Albumin Triglycerides HDL Cholesterol Vitamin B12 Folate 07/04/18 07/04/18 07/04/18 05:22 12:15 14:59 WBC RBC Hgb Hct MCV MCH RDW Plt Count Lymph % (Auto) Lymph # Baso # Seg Neutrophils % Seg Neuts % (Manual) Lymphocytes % (Manual) Nucleated RBC % Seg Neutrophils # Seg Neutrophils # Man Lymphocytes # (Manual) Monocytes # (Manual) D-Dimer Heparin Anti-Xa Level 1.31 H 1.70 H Sodium Potassium Chloride Carbon Dioxide BUN Creatinine Glucose POC Glucose 200 H Lactic Acid Calcium ALT Troponin T C-Reactive Protein Albumin Triglycerides HDL Cholesterol Vitamin B12 Folate 07/04/18 07/05/18 07/05/18 20:56 06:17 06:17 WBC RBC 3.51 L Hgb Hct MCV 104 H MCH 35 H RDW Plt Count Lymph % (Auto) 7.8 L Lymph # 0.7 L Baso # Seg Neutrophils % 85.2 H Seg Neuts % (Manual) Lymphocytes % (Manual) Nucleated RBC % Seg Neutrophils # Seg Neutrophils # Man Lymphocytes # (Manual) Monocytes # (Manual) D-Dimer Heparin Anti-Xa Level Sodium 132 L Potassium 3.1 L Chloride 92.7 L Carbon Dioxide BUN 29 H Creatinine 7.3 H Glucose 115 H POC Glucose 133 H Lactic Acid Calcium 7.9 L ALT Troponin T C-Reactive Protein Albumin Triglycerides HDL Cholesterol Vitamin B12 Folate 07/05/18 07/06/18 07/06/18 23:47 06:53 06:53 WBC RBC 3.47 L Hgb Hct MCV 104 H MCH 35 H RDW Plt Count Lymph % (Auto) Lymph # Baso # Seg Neutrophils % Seg Neuts % (Manual) 93.0 H Lymphocytes % (Manual) 2.0 L Nucleated RBC % Seg Neutrophils # Seg Neutrophils # Man 8.6 H Lymphocytes # (Manual) 0.2 L Monocytes # (Manual) D-Dimer Heparin Anti-Xa Level Sodium 132 L Potassium 3.2 L Chloride 94.5 L Carbon Dioxide BUN 32 H Creatinine 8.7 H Glucose 106 H POC Glucose 112 H Lactic Acid Calcium 7.8 L ALT Troponin T C-Reactive Protein Albumin Triglycerides HDL Cholesterol Vitamin B12 Folate 07/06/18 07/06/18 07/07/18 16:23 22:56 07:56 WBC RBC Hgb Hct MCV MCH RDW Plt Count Lymph % (Auto) Lymph # Baso # Seg Neutrophils % Seg Neuts % (Manual) Lymphocytes % (Manual) Nucleated RBC % Seg Neutrophils # Seg Neutrophils # Man Lymphocytes # (Manual) Monocytes # (Manual) D-Dimer Heparin Anti-Xa Level Sodium Potassium Chloride Carbon Dioxide BUN Creatinine Glucose POC Glucose 126 H 139 H 181 H Lactic Acid Calcium ALT Troponin T C-Reactive Protein Albumin Triglycerides HDL Cholesterol Vitamin B12 Folate 07/07/18 07/07/18 07/07/18 09:35 09:35 12:52 WBC RBC Hgb Hct MCV 105 H MCH 35 H RDW Plt Count Lymph % (Auto) 6.3 L Lymph # 0.6 L Baso # Seg Neutrophils % 87.9 H Seg Neuts % (Manual) Lymphocytes % (Manual) Nucleated RBC % Seg Neutrophils # 8.2 H Seg Neutrophils # Man Lymphocytes # (Manual) Monocytes # (Manual) D-Dimer Heparin Anti-Xa Level Sodium 130 L Potassium 3.4 L Chloride 90.3 L Carbon Dioxide BUN 29 H Creatinine 8.0 H Glucose 201 H POC Glucose 161 H Lactic Acid Calcium 8.0 L ALT Troponin T C-Reactive Protein Albumin Triglycerides HDL Cholesterol Vitamin B12 Folate 07/07/18 07/08/18 07/08/18 21:56 05:19 05:19 WBC 12.7 H RBC Hgb Hct MCV 104 H MCH 35 H RDW Plt Count Lymph % (Auto) Lymph # Baso # Seg Neutrophils % Seg Neuts % (Manual) 92.0 H Lymphocytes % (Manual) 5.0 L Nucleated RBC % 1.0 H Seg Neutrophils # Seg Neutrophils # Man 11.7 H Lymphocytes # (Manual) 0.6 L Monocytes # (Manual) D-Dimer Heparin Anti-Xa Level Sodium 134 L Potassium 3.4 L Chloride 93.6 L Carbon Dioxide BUN 30 H Creatinine 8.0 H Glucose 184 H POC Glucose 162 H Lactic Acid Calcium ALT Troponin T C-Reactive Protein Albumin Triglycerides HDL Cholesterol Vitamin B12 Folate 07/08/18 07/08/18 07/08/18 05:19 05:19 08:25 WBC RBC Hgb Hct MCV MCH RDW Plt Count Lymph % (Auto) Lymph # Baso # Seg Neutrophils % Seg Neuts % (Manual) Lymphocytes % (Manual) Nucleated RBC % Seg Neutrophils # Seg Neutrophils # Man Lymphocytes # (Manual) Monocytes # (Manual) D-Dimer Heparin Anti-Xa Level Sodium Potassium Chloride Carbon Dioxide BUN Creatinine Glucose POC Glucose 200 H Lactic Acid Calcium ALT Troponin T C-Reactive Protein Albumin Triglycerides HDL Cholesterol Vitamin B12 1416 H Folate 2.39 L 07/08/18 07/08/18 07/08/18 11:48 16:14 21:53 WBC RBC Hgb Hct MCV MCH RDW Plt Count Lymph % (Auto) Lymph # Baso # Seg Neutrophils % Seg Neuts % (Manual) Lymphocytes % (Manual) Nucleated RBC % Seg Neutrophils # Seg Neutrophils # Man Lymphocytes # (Manual) Monocytes # (Manual) D-Dimer Heparin Anti-Xa Level Sodium Potassium Chloride Carbon Dioxide BUN Creatinine Glucose POC Glucose 202 H 176 H 219 H Lactic Acid Calcium ALT Troponin T C-Reactive Protein Albumin Triglycerides HDL Cholesterol Vitamin B12 Folate 07/09/18 07/09/18 07/09/18 07:50 09:51 09:51 WBC 15.8 H RBC Hgb Hct 43.4 H MCV 105 H MCH 34 H RDW Plt Count Lymph % (Auto) Lymph # Baso # Seg Neutrophils % Seg Neuts % (Manual) 94.0 H Lymphocytes % (Manual) 3.0 L Nucleated RBC % 1.0 H Seg Neutrophils # Seg Neutrophils # Man 14.9 H Lymphocytes # (Manual) 0.5 L Monocytes # (Manual) D-Dimer Heparin Anti-Xa Level Sodium 135 L Potassium Chloride 95.5 L Carbon Dioxide BUN 29 H Creatinine 8.4 H Glucose 204 H POC Glucose 163 H Lactic Acid Calcium ALT Troponin T C-Reactive Protein Albumin Triglycerides HDL Cholesterol Vitamin B12 Folate 07/09/18 07/09/18 07/09/18 11:50 18:47 22:16 WBC RBC Hgb Hct MCV MCH RDW Plt Count Lymph % (Auto) Lymph # Baso # Seg Neutrophils % Seg Neuts % (Manual) Lymphocytes % (Manual) Nucleated RBC % Seg Neutrophils # Seg Neutrophils # Man Lymphocytes # (Manual) Monocytes # (Manual) D-Dimer Heparin Anti-Xa Level Sodium Potassium Chloride Carbon Dioxide BUN Creatinine Glucose POC Glucose 156 H 176 H 189 H Lactic Acid Calcium ALT Troponin T C-Reactive Protein Albumin Triglycerides HDL Cholesterol Vitamin B12 Folate 07/10/18 07/10/18 07/10/18 05:35 08:22 08:52 WBC 17.9 H RBC Hgb Hct MCV 105 H MCH 34 H RDW Plt Count Lymph % (Auto) Lymph # Baso # Seg Neutrophils % Seg Neuts % (Manual) 87.0 H Lymphocytes % (Manual) 6.0 L Nucleated RBC % Seg Neutrophils # Seg Neutrophils # Man 15.6 H Lymphocytes # (Manual) 1.1 L Monocytes # (Manual) 1.1 H D-Dimer Heparin Anti-Xa Level Sodium 135 L Potassium Chloride 92.8 L Carbon Dioxide BUN 27 H Creatinine 7.5 H Glucose 175 H POC Glucose 129 H Lactic Acid Calcium ALT Troponin T C-Reactive Protein Albumin Triglycerides HDL Cholesterol Vitamin B12 Folate 07/10/18 07/10/18 07/10/18 11:47 18:22 21:32 WBC RBC Hgb Hct MCV MCH RDW Plt Count Lymph % (Auto) Lymph # Baso # Seg Neutrophils % Seg Neuts % (Manual) Lymphocytes % (Manual) Nucleated RBC % Seg Neutrophils # Seg Neutrophils # Man Lymphocytes # (Manual) Monocytes # (Manual) D-Dimer Heparin Anti-Xa Level Sodium Potassium Chloride Carbon Dioxide BUN Creatinine Glucose POC Glucose 189 H 211 H 306 H Lactic Acid Calcium ALT Troponin T C-Reactive Protein Albumin Triglycerides HDL Cholesterol Vitamin B12 Folate 07/11/18 07/11/18 07/11/18 04:10 07:36 11:49 WBC 19.4 H RBC Hgb Hct MCV 107 H MCH 35 H RDW 15.3 H Plt Count Lymph % (Auto) Lymph # Baso # Seg Neutrophils % Seg Neuts % (Manual) 89.0 H Lymphocytes % (Manual) 4.0 L Nucleated RBC % Seg Neutrophils # Seg Neutrophils # Man 17.3 H Lymphocytes # (Manual) 0.8 L Monocytes # (Manual) D-Dimer Heparin Anti-Xa Level Sodium Potassium Chloride Carbon Dioxide BUN Creatinine Glucose POC Glucose 113 H 123 H Lactic Acid Calcium ALT Troponin T C-Reactive Protein Albumin Triglycerides HDL Cholesterol Vitamin B12 Folate 07/11/18 07/11/18 07/12/18 17:35 23:28 00:48 WBC 17.0 H RBC Hgb Hct MCV 106 H MCH 35 H RDW Plt Count Lymph % (Auto) Lymph # Baso # Seg Neutrophils % Seg Neuts % (Manual) 92.0 H Lymphocytes % (Manual) 3.0 L Nucleated RBC % Seg Neutrophils # Seg Neutrophils # Man 15.6 H Lymphocytes # (Manual) 0.5 L Monocytes # (Manual) 0.9 H D-Dimer Heparin Anti-Xa Level Sodium Potassium Chloride Carbon Dioxide BUN Creatinine Glucose POC Glucose 207 H 188 H Lactic Acid Calcium ALT Troponin T C-Reactive Protein Albumin Triglycerides HDL Cholesterol Vitamin B12 Folate 07/12/18 07/12/18 07/12/18 04:05 09:21 12:05 WBC RBC Hgb Hct MCV MCH RDW Plt Count Lymph % (Auto) Lymph # Baso # Seg Neutrophils % Seg Neuts % (Manual) Lymphocytes % (Manual) Nucleated RBC % Seg Neutrophils # Seg Neutrophils # Man Lymphocytes # (Manual) Monocytes # (Manual) D-Dimer Heparin Anti-Xa Level Sodium Potassium Chloride Carbon Dioxide BUN Creatinine Glucose POC Glucose 147 H 125 H 113 H Lactic Acid Calcium ALT Troponin T C-Reactive Protein Albumin Triglycerides HDL Cholesterol Vitamin B12 Folate Allied health notes reviewed: nursing
[2018-07-12 14:10] LABS: Monocytes Body Fluid 0 %; Total Cells Counted 100 /mm3
--- NOTE | 2018-07-12 15:02 | Progress Note ---
Assessment and Plan Impression * End-stage renal disease * Hypertension * Diabetes * Abdominal pain * Hypokalemia * Extrusion of external cuff off her PD catheter * Malfunctioning PD catheter * Peritonitis Recommendations * PD catheter not functioning well today. Fibrin threads noted in the bag. KUB shows catheter tube to be in the left lower quadrant area * Flush her PD catheter with heparin. Add laxatives to help move her bowels. Add heparin to her PD fluid as well . * PD fluid cell count noted to be elevated at 6350 . Follow-up culture results and broaden her antibiotic coverage * She has extrusion of the external cuff of the PD catheter. Will need to fo llow up with her PD surgeon. May be done as an outpatient * Hold Procrit for now as her hemoglobin is >12 Subjective Date of service: 07/12/18 Principal diagnosis: dvt leg Interval history: Patient's PD catheter not draining well today. Her abdominal pain seems to be improving. PD fluid noted to be somewhat cloudy as well. Fibrin thread noted in the bag. Objective - Vital Signs Vital signs: Vital Signs - 12hr 07/12/18 07/12/18 07/12/18 04:07 04:09 07:18 Temperature 97.2 F L 97.2 F L 98.5 F Pulse Rate 89 89 92 H Respiratory 16 16 20 Rate Blood Pressure 89/44 Blood Pressure 123/85 123/85 [Left] O2 Sat by Pulse 97 94 Oximetry - General Appearance General appearance: well-developed, well-nourished, appears stated age EENT: PERRL, mucous membranes moist Neck: no JVD, no thyromegaly, no carotid bruit, supple Respiratory: Present: Clear to Ascultation Cardiology: regular, normal heart rate Gastrointestinal: normal, normoactive bowel sounds, other (mild diffuse tenderness) Integumentary: other (no edema) - Lab 07/12/18 00:48 07/10/18 08:22 Most recent lab results Calcium 8.5 mg/dL (8.4-10.2) 07/10/18 08:22 Medications & Allergies - Medications Allergies/Adverse Reactions: Allergies No Known Allergies Allergy (Verified 08/18/14 08:52) Home Medications: Home Medications Medication Instructions Recorded Confirmed Last Taken Type Aspirin [Aspirin BABY CHEW TAB] 81 mg PO QDAY #30 08/19/14 06/29/18 06/23/15 Rx Calcitriol [Rocaltrol] 0.5 mcg PO QDAY 06/29/18 06/29/18 Unknown History Potassium Chloride [Klor-Con M20] 20 meq PO DAILY 06/29/18 06/29/18 Unknown History Sevelamer Carbonate 1,600 mg PO TID 06/29/18 06/29/18 Unknown History Simvastatin [Zocor] 20 mg PO DAILY 06/29/18 06/29/18 Unknown History Active Medications: Generic Name Dose Route Start Last Admin Trade Name Bhupendra PRN Reason Stop Dose Admin Apixaban 5 mg 07/04/18 16:00 07/12/18 12:46 Eliquis PO 5 mg Q12HR DIANE Administration Protocol Aspirin 81 mg 06/29/18 13:00 07/12/18 12:35 Baby Aspirin PO 81 mg QDAY DIANE Administration Atorvastatin Calcium 40 mg 06/29/18 22:00 07/11/18 22:56 Lipitor PO 40 mg QHS DIANE Administration Calcitriol 0.5 mcg 06/29/18 13:00 07/12/18 13:02 Rocaltrol PO 0.5 mcg QDAY DIANE Administration Docusate Sodium 100 mg 07/02/18 10:00 07/12/18 12:35 Colace PO 100 mg BID DIANE Administration Folic Acid 1 mg 07/10/18 14:00 07/12/18 12:34 Folvite PO 1 mg QDAY DIANE Administration Cefepime HCl 1 gm in 100 mls @ 200 mls/hr 07/10/18 20:00 07/11/18 19:17 Maxipime/Ns 1 Gm/100 Ml IV 200 mls/hr QPM DIANE Administration Protocol Vancomycin HCl 1 gm in 250 mls @ 167.007 mls/hr 07/12/18 20:00 Vancomycin/Ns 1 Gm/250 Ml IV 07/12/18 21:29 ONCE ONE Insulin Human Lispro 0 unit 06/29/18 22:00 07/12/18 12:36 Humalog SUB-Q Not Given [facility] Protocol Lidocaine 1 each 06/29/18 13:00 07/12/18 12:33 Lidoderm 5% TD 1 each QDAY DIANE Administration Midodrine 10 mg 07/01/18 14:00 07/12/18 09:19 Proamatine PO 10 mg TID DIANE Administration Morphine Sulfate 2 mg 07/08/18 14:51 07/11/18 23:06 Morphine IV 2 mg Q4H PRN Administration Pain, Moderate (4-6) Pantoprazole Sodium 40 mg 07/08/18 10:00 07/12/18 12:34 Protonix PO 40 mg QDAY DIANE Administration Peritoneal Dialysis Solution 2,000 ml 07/06/18 14:00 07/12/18 12:18 Dianeal Low Calcium W/2.5% Dextrose IP Not Given 0600,1000,1400,1800 DIANE Polyethylene Glycol 17 gm 07/02/18 10:00 07/12/18 13:12 Miralax 3350 PO 17 gm QDAY DIANE Administration Sevelamer Carbonate 1,600 mg 06/29/18 12:00 07/12/18 12:33 Renvela PO 1,600 mg TIDWM DIANE Administration
--- NOTE | 2018-07-12 15:45 | Ultrasound Report ---
PROCEDURE: US ABDOMEN LIMITED TECHNIQUE: 2-D imaging with compression technique was utilized to evaluate the anterior abdominal wa ll in the region of the umbilicus HISTORY: superficial abdo wall ?[id number] not need COMPARISONS: Prior CT scan abdomen and pelvis 07/02/2018 FINDINGS: There is a intermediate/low echogenic density projecting adjacent to or within the umbilicus which ap pears mobile. A umbilical or periumbilical hernia appears to be present. The echogenicity appears to represent adipose tissue. I do not see definite evidence of a herniated loop of bowel. No ascites is seen in the hernia. IMPRESSION: Moderate-sized umbilical hernia present containing adipose tissue. No herniated loops of bowel are se en.. This document is electronically signed by Luis Arrieta MD., July 12 2018 03:43:54 PM ET
[2018-07-12] MEDS: MAXIPIME/NS 1 GM/100 ML 1 GM/100 ML BAG IV SCH (17:54)
[2018-07-12] MEDS ORDERED: VANCOMYCIN/NS 1 GM/250 ML 1 GM/250 ML BAG IV ONE (20:00)
[2018-07-13] MEDS: MORPHINE IV PRN ×3 (06:27→17:45)
[2018-07-13 06:29] LABS: Hematocrit 37.8 % (30.3-42.9); Hemoglobin 12.3 gm/dl (10.1-14.3); Mean Corpuscular HGB Conc 33 % (30-34); Mean Corpuscular Volume 105 fl (79-97); Platelet Count 257 K/mm3 (140-440); Red Blood Count 3.62 M/mm3 (3.65-5.03); Red Cell Distribution Width 14.6 % (13.2-15.2)
[2018-07-13] MEDS: [UNRECOGNIZED DRUG - OTHER] IP SCH ×5 (06:34→23:29)
--- NOTE | 2018-07-13 07:02 | Hem/Onc Progress Note ---
Assessment and Plan 1. Left leg deep venous thrombosis. The patient was on heparin drip. The patient is on peritoneal dialysis. The dose of Eliquis or any direct thrombin inhibitors or other anticoagulation monitoring may become challenging. I will discuss with other team members regarding the dosage. The question arises if a lower dose of Eliquis is sufficient. 2. MCV elevated. We will investigate. 3. Elevated D-dimers. 4. History of renal failure, on peritoneal dialysis. 5. History of hypertension. She was hypotensive at admission. 6. History of diabetes. 7. I will follow the patient during inpatient stay and then in the clinic setting for anticoagulation management. Option of Coumadin is also available but that would involve monitoring. 07/05 - d/w dr cartagena - pharmacy to help reg NOAC - ? eliquis 2.5 q 12? 07/06 - pharmacy has placed pt on 5 mg q 12 07/08 - pt on eliquis - d/w dr noyola - Placement pending gets PD 07/09 - pt had fever on eliquis for left leg dvt. h/o abdo discomfort - on and off 07/10/2018 DVT - on eliquis c/o abdo discomfort - d/w dr andrade - US abdo elevated MCV - low folate - replace ESRD on PD h/o fever 07/11 US abdo done - report pending Leukocytosis - seen by ID on eliquis 07/13/2018 pt says PD catheter not working US abdo done ID - for Abx eliquis for DVT - Patient Problems (1) DVT (deep venous thrombosis) Current Visit: Yes Status: Acute Qualifiers: DVT location: lower extremity Chronicity: acute Subjective Date of service: 07/13/18 Principal diagnosis: dvt Interval history: c/o abdo pain and PD cath not working Objective - Constitutional Vitals: Last Vital Signs Temp 98.6 F 07/13/18 02:35 Pulse 95 H 07/13/18 03:00 Resp 20 07/13/18 02:35 BP 94/54 07/13/18 02:35 Pulse Ox 90 07/13/18 03:00 Pain Intensity (0-10): 1/10 General appearance: mild distress Performance status: 3-limited selfcare - EENT Eyes: EOM intact ENT: clear oral mucosa Lymph node exam: negative cervical - Neck Neck: normal ROM - Respiratory Respiratory effort: Positive: normal Respiratory: bilateral: CTA - Cardiovascular Heart Sounds: Present: S1 & S2 Extremity abnormal: edema - Gastrointestinal General gastrointestinal: Present: soft, other (PD cath) Rectal Exam: deferred - Integumentary Integumentary: warm - Musculoskeletal Musculoskeletal: generalized weakness - Neurologic Neurologic: moves all extremities - Labs Lab Results: Laboratory Results - last 24 hr 07/12/18 07/12/18 07/12/18 04:05 09:21 11:30 WBC RBC Hgb Hct MCV MCH MCHC RDW Plt Count Seg Neutrophils % Sodium Potassium Chloride Carbon Dioxide Anion Gap BUN Creatinine Estimated GFR BUN/Creatinine Ratio Glucose POC Glucose 147 H 125 H Calcium Fluid Type Dialysate Fluid Color Straw Fluid Appearance Cloudy Fluid WBC 6350 Fluid RBC 3 Fluid Seg Neutrophils 96.0 Fluid Lymphocytes 4.0 Fluid Reactive Lymphs 0 Fluid Monocytes 0 Fluid Eosinophils 0 Fluid Basophils 0 07/12/18 07/12/18 07/13/18 12:05 22:25 05:28 WBC 15.5 H RBC 3.62 L Hgb 12.3 Hct 37.8 MCV 105 H MCH 34 H MCHC 33 RDW 14.6 Plt Count 257 Seg 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 Sodium Potassium Chloride Carbon Dioxide Anion Gap BUN Creatinine Estimated GFR BUN/Creatinine Ratio Glucose POC Glucose 113 H 162 H Calcium Fluid Type Fluid Color Fluid Appearance Fluid WBC Fluid RBC Fluid Seg Neutrophils Fluid Lymphocytes Fluid Reactive Lymphs Fluid Monocytes Fluid Eosinophils Fluid Basophils 07/13/18 05:28 WBC RBC Hgb Hct MCV MCH MCHC RDW Plt Count Seg Neutrophils % Sodium 133 L Potassium 3.7 Chloride 95.0 L Carbon Dioxide 25 Anion Gap 17 BUN 43 H Creatinine 9.1 H Estimated GFR 5 BUN/Creatinine Ratio 5 Glucose 124 H POC Glucose Calcium 8.0 L Fluid Type Fluid Color Fluid Appearance Fluid WBC Fluid RBC Fluid Seg Neutrophils Fluid Lymphocytes Fluid Reactive Lymphs Fluid Monocytes Fluid Eosinophils Fluid Basophils Medications & Allergies - Medications Allergies/Adverse Reactions: Allergies No Known Allergies Allergy (Verified 08/18/14 08:52) Home Medications: Home Medications Medication Instructions Recorded Confirmed Last Taken Type Aspirin [Aspirin BABY CHEW TAB] 81 mg PO QDAY #30 08/19/14 06/29/18 06/23/15 Rx Calcitriol [Rocaltrol] 0.5 mcg PO QDAY 06/29/18 06/29/18 Unknown History Potassium Chloride [Klor-Con M20] 20 meq PO DAILY 06/29/18 06/29/18 Unknown History Sevelamer Carbonate 1,600 mg PO TID 06/29/18 06/29/18 Unknown History Simvastatin [Zocor] 20 mg PO DAILY 06/29/18 06/29/18 Unknown History Active Medications: Generic Name Dose Route Start Last Admin Trade Name Freq PRN Reason Stop Dose Admin Apixaban 5 mg 07/04/18 16:00 07/12/18 12:46 Eliquis PO 5 mg Q12HR DIANE Administration Protocol Aspirin 81 mg 06/29/18 13:00 07/12/18 12:35 Baby Aspirin PO 81 mg QDAY DIANE Administration Atorvastatin Calcium 40 mg 06/29/18 22:00 07/11/18 22:56 Lipitor PO 40 mg QHS DIANE Administration Calcitriol 0.5 mcg 06/29/18 13:00 07/12/18 13:02 Rocaltrol PO 0.5 mcg QDAY DIANE Administration Peritoneal Dialysis Solution 2 0 ml 07/12/18 18:00 07/13/18 06:34 ,000 ml/ Heparin Sodium ( IP 2,000 ml Porcine) 1,000 unit 0600,1000,1400,1800 DIANE Administration Docusate Sodium 100 mg 07/02/18 10:00 07/12/18 12:35 Colace PO 100 mg BID DIANE Administration Folic Acid 1 mg 07/10/18 14:00 07/12/18 12:34 Folvite PO 1 mg QDAY DIANE Administration Cefepime HCl 1 gm in 100 mls @ 200 mls/hr 07/10/18 20:00 07/12/18 17:54 Maxipime/Ns 1 Gm/100 Ml IV 200 mls/hr QPM DIANE Administration Protocol Insulin Human Lispro 0 unit 06/29/18 22:00 07/12/18 12:36 Humalog SUB-Q Not Given ACHS DIANE Protocol Lactulose 20 gm 07/12/18 20:00 Cephulac PO TID DIANE Lidocaine 1 each 06/29/18 13:00 07/12/18 12:33 Lidoderm 5% TD 1 each QDAY DIANE Administration Midodrine 10 mg 07/01/18 14:00 07/12/18 16:02 Proamatine PO 10 mg TID DIANE Administration Morphine Sulfate 2 mg 07/08/18 14:51 07/13/18 06:27 Morphine IV 2 mg Q4H PRN Administration Pain, Moderate (4-6) Pantoprazole Sodium 40 mg 07/08/18 10:00 07/12/18 12:34 Protonix PO 40 mg QDAY DIANE Administration Polyethylene Glycol 17 gm 07/02/18 10:00 07/12/18 13:12 Miralax 3350 PO 17 gm QDAY DIANE Administration Sevelamer Carbonate 1,600 mg 06/29/18 12:00 07/12/18 17:54 Renvela PO 1,600 mg TIDWM DIANE Administration
[2018-07-13] MEDS: COLACE PO SCH ×3 (07:55→21:39)
[2018-07-13] MEDS: PROAMATINE PO SCH ×4 (07:55→21:39)
[2018-07-13] MEDS: ELIQUIS PO SCH ×3 (07:58→21:39)
[2018-07-13] MEDS: RENVELA PO SCH ×3 (07:59→17:55)
[2018-07-13] MEDS: CEPHULAC PO SCH ×2 (07:59→23:32)
[2018-07-13] MEDS: HumaLOG SUB-Q SCH ×5 (08:21→23:29)
[2018-07-13] MEDS: MIRALAX 3350 PO SCH (10:39)
[2018-07-13] MEDS: BABY ASPIRIN PO SCH (10:40)
[2018-07-13] MEDS: ROCALTROL PO SCH (10:40)
[2018-07-13] MEDS: FOLVITE PO SCH (10:40)
[2018-07-13] MEDS: PROTONIX PO SCH (10:40)
[2018-07-13] MEDS: LIDODERM 5% TD SCH (11:58)
--- NOTE | 2018-07-13 11:58 | Progress Note ---
Assessment and Plan Impression * End-stage renal disease * Hypertension * Diabetes * Abdominal pain * Hypokalemia * Extrusion of external cuff off her PD catheter * Malfunctioning PD catheter * Peritonitis Recommendations * PD catheter is functioning better after flushing with heparin * KUB shows catheter tube to be in the left lower quadrant area * And 2 new heparin with PD fluid * Patient has been having good bowel movements. Change lactulose to when necessary only * PD fluid cell count noted to be elevated at 6350 . Follow-up culture results . Patient is currently on broad-spectrum antibiotic coverage * She has extrusion of the external cuff of the PD catheter. Will need to follow up with her PD surgeon. May be done as an outpatient * Hold Procrit for now as her hemoglobin is >12 Subjective Date of service: 07/13/18 Principal diagnosis: dvt Interval history: Patient's PD seems to be working better. PD fluid noted to be cloudy. Abdominal pain is improving. Objective - Vital Signs Vital signs: Vital Signs - 12hr 07/13/18 07/13/18 07/13/18 02:35 03:00 07:55 Temperature 98.6 F 98.3 F Pulse Rate 95 H 85 Respiratory 20 18 Rate Blood Pressure 94/54 100/57 O2 Sat by Pulse 90 95 Oximetry - General Appearance General appearance: well-developed, well-nourished, appears stated age EENT: PERRL, mucous membranes moist Neck: no JVD, no thyromegaly, no carotid bruit, supple Respiratory: Present: Clear to Ascultation Cardiology: regular, normal heart rate, S1S2, no murmurs Gastrointestinal: normal, normoactive bowel sounds, other (PD catheter in place) Integumentary: other (no edema) - Lab 07/13/18 05:28 07/13/18 05:28 Most recent lab results Calcium 8.0 mg/dL (8.4-10.2) L 07/13/18 05:28 Medications & Allergies - Medications Allergies/Adverse Reactions: Allergies No Known Allergies Allergy (Verified 08/18/14 08:52) Home Medications: Home Medications Medication Instructions Recorded Confirmed Last Taken Type Aspirin [Aspirin BABY CHEW TAB] 81 mg PO QDAY #30 08/19/14 06/29/18 06/23/15 Rx Calcitriol [Rocaltrol] 0.5 mcg PO QDAY 06/29/18 06/29/18 Unknown History Potassium Chloride [Klor-Con M20] 20 meq PO DAILY 06/29/18 06/29/18 Unknown History Sevelamer Carbonate 1,600 mg PO TID 06/29/18 06/29/18 Unknown History Simvastatin [Zocor] 20 mg PO DAILY 06/29/18 06/29/18 Unknown History Active Medications: Generic Name Dose Route Start Last Admin Trade Name Freq PRN Reason Stop Dose Admin Apixaban 5 mg 07/04/18 16:00 07/13/18 10:40 Eliquis PO 5 mg Q12HR DIANE Administration Protocol Aspirin 81 mg 06/29/18 13:00 07/13/18 10:40 Baby Aspirin PO 81 mg QDAY DIANE Administration Atorvastatin Calcium 40 mg 06/29/18 22:00 07/13/18 07:57 Lipitor PO Not Given QHS DIANE Calcitriol 0.5 mcg 06/29/18 13:00 07/13/18 10:40 Rocaltrol PO 0.5 mcg QDAY DIANE Administration Peritoneal Dialysis Solution 2 0 ml 07/12/18 18:00 07/13/18 10:34 ,000 ml/ Heparin Sodium ( IP 2,000 ml Porcine) 1,000 unit 0600,1000,1400,1800 DIANE Administration Docusate Sodium 100 mg 07/02/18 10:00 07/13/18 10:40 Colace PO 100 mg BID DIANE Administration Folic Acid 1 mg 07/10/18 14:00 07/13/18 10:40 Folvite PO 1 mg QDAY DIANE Administration Cefepime HCl 1 gm in 100 mls @ 200 mls/hr 07/10/18 20:00 07/12/18 17:54 Maxipime/Ns 1 Gm/100 Ml IV 200 mls/hr QPM DIANE Administration Protocol Vancomycin HCl 1 gm in 250 mls @ 167.007 mls/hr 07/13/18 12:00 07/13/18 11:42 Vancomycin/Ns 1 Gm/250 Ml IV 07/13/18 13:29 167.007 mls/hr ONCE ONE Administration Insulin Human Lispro 0 unit 06/29/18 22:00 07/13/18 11:42 Humalog SUB-Q 2 unit ACHS DIANE Administration Protocol Lactulose 20 gm 07/13/18 12:00 Cephulac PO TID PRN Constipation Lidocaine 1 each 06/29/18 13:00 07/12/18 12:33 Lidoderm 5% TD 1 each QDAY DIANE Administration Midodrine 10 mg 07/01/18 14:00 07/13/18 07:59 Proamatine PO 10 mg TID DIANE Administration Morphine Sulfate 2 mg 07/08/18 14:51 07/13/18 06:27 Morphine IV 2 mg Q4H PRN Administration Pain, Moderate (4-6) Pantoprazole Sodium 40 mg 07/08/18 10:00 07/13/18 10:40 Protonix PO 40 mg QDAY DIANE Administration Polyethylene Glycol 17 gm 07/02/18 10:00 07/13/18 10:39 Miralax 3350 PO 17 gm QDAY DIANE Administration Sevelamer Carbonate 1,600 mg 06/29/18 12:00 07/13/18 11:37 Renvela PO 1,600 mg TIDWM DIANE Administration
[2018-07-13] MEDS ORDERED: VANCOMYCIN/NS 1 GM/250 ML 1 GM/250 ML BAG IV ONE (12:00)
[2018-07-13] MEDS ORDERED: CEPHULAC PO PRN (12:00)
--- NOTE | 2018-07-13 12:26 | Progress Note ---
Assessment and Plan Assessment and plan: Sepsis not present on admission - PD associated peritonitis. - PD fluid cell count noted to be elevated at 6350 . Follow-up culture results . Patient is currently on broad-spectrum antibiotic coverage - Follow up abdominal US - report pending - Continue to monitor leukocytosis PD catheter malfunction Improved after administration of heparin. Hypotension - cont midodrine for now HLD, on statin ESRD on PD, Nephrology following Diabetes type 2, diet controlled, cont SSRI Elevated troponin/NSTEMI type 2 - Cardiology following - Stress test negative DVT left lower ext. Cont. Eliquis. Debility PT evaluation done patient unable to stand, and she lives alone. discussed with case management Patient for LTAC evaluation History Interval history: Patient is a 67-year-old female past medical history of end-stage renal disease on peritoneal dialysis, hypertension hyperlipidemia, diabetes mellitus type 2 on diet control, presented to ER by EMS after having a fall around 9 AM in the morning but she had no loss of consciousness or hit her head. She was sitting on bed and accidentally "slid to ground". She was unable to get up from the bed as she was feeling very weak in her legs. Her family called emergency services to break into her house around 5pm. She was then brought to the ER for further evaluation and management . She noted to have highly elevated d-dimer, elevated white count. In the ED, patient was hypotensive w/ WBC 24.8. CTA chest was unremarkable. V/Q scan was also low prob PE. She denied fever, chills, PD fluid has been clear. She was placed on Levophed, given IV Rocephin and admitted. she was diagnosed with SIRS, hypotension. She improved on Levophed was weaned off. She had swelling of the legs on both ultrasound confirmed a DVT of left lower extremity for which she has been . However patient has failure to thrive, debility, she feels very weak and unable to stand. I discussed with case management she started working on acute rehabilitation placement. The patient developed fever and leukocytosis on 07/08/18. Fever resolved but leukocytosis worsened. Antibiotics restarted and blood cultures thus far negative. ID consulted. Nurse reports PD catheter malfunctioning and not draining well previously but now improved after flushing with heparin. Hospitalist Physical - Constitutional Vitals: Temp Pulse Resp BP Pulse Ox 98.3 F 85 18 100/57 95 07/13/18 07:55 07/13/18 07:55 07/13/18 07:55 07/13/18 07:55 07/13/18 07:55 General appearance: Present: no acute distress, obese - EENT Eyes: Present: PERRL, EOM intact ENT: hearing intact, clear oral mucosa, dentition normal - Neck Neck: Present: supple, normal ROM - Respiratory Respiratory effort: normal Respiratory: bilateral: CTA - Cardiovascular Rhythm: regular Heart Sounds: Present: S1 & S2. Absent: gallop, rub - Extremities Extremities: no ischemia, No edema, Full ROM - Abdominal General gastrointestinal: soft, non-tender, non-distended, normal bowel sounds - Integumentary Integumentary: Present: clear, warm, dry - Neurologic Neurologic: CNII-XII intact, moves all extremities Results - Labs CBC & Chem 7: 07/13/18 05:28 07/13/18 05:28 Labs: Laboratory Last Values WBC 15.5 K/mm3 (4.5-11.0) H 07/13/18 05:28 RBC 3.62 M/mm3 (3.65-5.03) L 07/13/18 05:28 Hgb 12.3 gm/dl (10.1-14.3) 07/13/18 05:28 Hct 37.8 % (30.3-42.9) 07/13/18 05:28 MCV 105 fl (79-97) H 07/13/18 05:28 MCH 34 pg (28-32) H 07/13/18 05:28 MCHC 33 % (30-34) 07/13/18 05:28 RDW 14.6 % (13.2-15.2) 07/13/18 05:28 Plt Count 257 K/mm3 (140-440) 07/13/18 05:28 Lymph % (Auto) 6.3 % (13.4-35.0) L 07/07/18 09:35 Mchenry % (Auto) 5.4 % (0.0-7.3) 07/07/18 09:35 Eos % (Auto) 0.3 % (0.0-4.3) 07/07/18 09:35 Baso % (Auto) 0.1 % (0.0-1.8) 07/07/18 09:35 Lymph # 0.6 K/mm3 (1.2-5.4) L 07/07/18 09:35 Mchenry # 0.5 K/mm3 (0.0-0.8) 07/07/18 09:35 Eos # 0.0 K/mm3 (0.0-0.4) 07/07/18 09:35 Baso # 0.0 K/mm3 (0.0-0.1) 07/07/18 09:35 Add Manual Diff Complete 07/12/18 00:48 Total Counted 100 07/12/18 00:48 Seg Neutrophils % Dispensing Audiologist 07/13/18 05:28 Seg Neuts % (Manual) 92.0 % (40.0-70.0) H 07/12/18 00:48 Band Neutrophils % 0 % 07/12/18 00:48 Lymphocytes % (Manual) 3.0 % (13.4-35.0) L 07/12/18 00:48 Reactive Lymphs % (Man) 0 % 07/12/18 00:48 Monocytes % (Manual) 5.0 % (0.0-7.3) 07/12/18 00:48 Eosinophils % (Manual) 0 % (0.0-4.3) 07/12/18 00:48 Basophils % (Manual) 0 % (0.0-1.8) 07/12/18 00:48 Metamyelocytes % 0 % 07/12/18 00:48 Myelocytes % 0 % 07/12/18 00:48 Promyelocytes % 0 % 07/12/18 00:48 Blast Cells % 0 % 07/12/18 00:48 Nucleated RBC % Not Reportable 07/12/18 00:48 Seg Neutrophils # 8.2 K/mm3 (1.8-7.7) H 07/07/18 09:35 Seg Neutrophils # Man 15.6 K/mm3 (1.8-7.7) H 07/12/18 00:48 Band Neutrophils # 0.0 K/mm3 07/12/18 00:48 Lymphocytes # (Manual) 0.5 K/mm3 (1.2-5.4) L 07/12/18 00:48 Abs React Lymphs (Man) 0.0 K/mm3 07/12/18 00:48 Monocytes # (Manual) 0.9 K/mm3 (0.0-0.8) H 07/12/18 00:48 Eosinophils # (Manual) 0.0 K/mm3 (0.0-0.4) 07/12/18 00:48 Basophils # (Manual) 0.0 K/mm3 (0.0-0.1) 07/12/18 00:48 Metamyelocytes # 0.0 K/mm3 07/12/18 00:48 Myelocytes # 0.0 K/mm3 07/12/18 00:48 Promyelocytes # 0.0 K/mm3 07/12/18 00:48 Blast Cells # 0.0 K/mm3 07/12/18 00:48 WBC Morphology Not Reportable 07/12/18 00:48 Hypersegmented Neuts Not Reportable 07/12/18 00:48 Hyposegmented Neuts Not Reportable 07/12/18 00:48 Hypogranular Neuts Not Reportable 07/12/18 00:48 Smudge Cells Not Reportable 07/12/18 00:48 Toxic Granulation Not Reportable 07/12/18 00:48 Toxic Vacuolation Not Reportable 07/12/18 00:48 Dohle Bodies Not Reportable 07/12/18 00:48 Pelger-Huet Anomaly Not Reportable 07/12/18 00:48 Nomi Rods Not Reportable 07/12/18 00:48 Platelet Estimate Consistent w auto 07/12/18 00:48 Clumped Platelets Not Reportable 07/12/18 00:48 Plt Clumps, EDTA Not Reportable 07/12/18 00:48 Large Platelets 1+ 07/12/18 00:48 Giant Platelets Not Reportable 07/12/18 00:48 Platelet Satelliting Not Reportable 07/12/18 00:48 Plt Morphology Comment Not Reportable 07/12/18 00:48 RBC Morphology Not Reportable 07/12/18 00:48 Dimorphic RBCs Not Reportable 07/12/18 00:48 Polychromasia Not Reportable 07/12/18 00:48 Hypochromasia Not Reportable 07/12/18 00:48 Poikilocytosis 1+ 07/12/18 00:48 Anisocytosis 1+ 07/12/18 00:48 Microcytosis Not Reportable 07/12/18 00:48 Macrocytosis Not Reportable 07/12/18 00:48 Spherocytes Not Reportable 07/12/18 00:48 Pappenheimer Bodies Not Reportable 07/12/18 00:48 Sickle Cells Not Reportable 07/12/18 00:48 Target Cells Not Reportable 07/12/18 00:48 Tear Drop Cells Not Reportable 07/12/18 00:48 Ovalocytes Not Reportable 07/12/18 00:48 Helmet Cells Not Reportable 07/12/18 00:48 [place] Bodies Not Reportable 07/12/18 00:48 [place] Rings Not Reportable 07/12/18 00:48 Edgar Cells Not Reportable 07/12/18 00:48 Bite Cells Not Reportable 07/12/18 00:48 Crenated Cell Not Reportable 07/12/18 00:48 Elliptocytes Not Reportable 07/12/18 00:48 Acanthocytes (Spur) Not Reportable 07/12/18 00:48 Rouleaux Not Reportable 07/12/18 00:48 Hemoglobin C Crystals Not Reportable 07/12/18 00:48 Schistocytes Not Reportable 07/12/18 00:48 Malaria parasites Not Reportable 07/12/18 00:48 Navneet Bodies Not Reportable 07/12/18 00:48 Hem Pathologist Commnt No 07/12/18 00:48 PT 13.6 Sec. (12.2-14.9) 07/03/18 12:39 INR 0.98 (0.87-1.13) 07/03/18 12:39 APTT 34.1 Sec. (24.2-36.6) 07/03/18 12:39 D-Dimer > 23719 ng/mlDDU (0-234) H 06/28/18 22:26 Heparin Anti-Xa Level 1.70 U.I./ml (0.3-0.7) H 07/04/18 14:59 Sodium 133 mmol/L (137-145) L 07/13/18 05:28 Potassium 3.7 mmol/L (3.6-5.0) 07/13/18 05:28 Chloride 95.0 mmol/L (98-107) L 07/13/18 05:28 Carbon Dioxide 25 mmol/L (22-30) 07/13/18 05:28 Anion Gap 17 mmol/L 07/13/18 05:28 BUN 43 mg/dL (7-17) H 07/13/18 05:28 Creatinine 9.1 mg/dL (0.7-1.2) H 07/13/18 05:28 Estimated GFR 5 ml/min 07/13/18 05:28 BUN/Creatinine Ratio 5 % 07/13/18 05:28 Glucose 124 mg/dL (65-100) H 07/13/18 05:28 POC Glucose 195 (70-105) H 07/13/18 11:40 Lactic Acid 2.20 mmol/L (0.7-2.0) H* 07/02/18 05:22 Calcium 8.0 mg/dL (8.4-10.2) L 07/13/18 05:28 Total Bilirubin 0.40 mg/dL (0.1-1.2) 06/28/18 20:54 AST 25 units/L (5-40) 06/28/18 20:54 ALT 5 units/L (7-56) L 06/28/18 20:54 Alkaline Phosphatase 88 units/L (35-129) 06/28/18 20:54 Total Creatine Kinase 118 units/L (30-135) 06/29/18 20:37 Troponin T 0.077 ng/mL (0.00-0.029) H 06/29/18 20:37 C-Reactive Protein 7.40 mg/dL (0.00-1.30) H 07/01/18 13:32 Total Protein 7.4 g/dL (6.3-8.2) 06/28/18 20:54 Albumin 3.2 g/dL (3.9-5) L 06/28/18 20:54 Albumin/Globulin Ratio 0.8 % 06/28/18 20:54 Triglycerides 194 mg/dL (2-149) H 06/28/18 10:38 Cholesterol 167 mg/dL (50-199) 06/28/18 10:38 LDL Cholesterol Direct 61 mg/dL (50-130) 06/28/18 10:38 HDL Cholesterol 68 mg/dL (40-59) H 06/28/18 10:38 Cholesterol/HDL Ratio 2.45 % 06/28/18 10:38 Vitamin B12 1416 pg/mL (211-911) H 07/08/18 05:19 Folate 2.39 ng/mL (7.3-26.0) L 07/08/18 05:19 Fluid Type Dialysate 07/12/18 11:30 Fluid Color Straw 07/12/18 11:30 Fluid Appearance Cloudy 07/12/18 11:30 Fluid WBC 6350 /mm3 07/12/18 11:30 Fluid RBC 3 /mm3 07/12/18 11:30 Fluid Seg Neutrophils 96.0 % 07/12/18 11:30 Fluid Lymphocytes 4.0 % 07/12/18 11:30 Fluid Reactive Lymphs 0 % 07/12/18 11:30 Fluid Monocytes 0 % 07/12/18 11:30 Fluid Eosinophils 0 % 07/12/18 11:30 Fluid Basophils 0 % 07/12/18 11:30 Random Vancomycin 15.2 ug/mL (0-40.0) 07/12/18 05:38 Active Medications - Current Medications Current Medications: Generic Name Dose Route Start Last Admin Trade Name Freq PRN Reason Stop Dose Admin Apixaban 5 mg 07/04/18 16:00 07/13/18 10:40 Eliquis PO 5 mg Q12HR DIANE Administration Protocol Aspirin 81 mg 06/29/18 13:00 07/13/18 10:40 Baby Aspirin PO 81 mg QDAY DIANE Administration Atorvastatin Calcium 40 mg 06/29/18 22:00 07/13/18 07:57 Lipitor PO Not Given QHS DIANE Calcitriol 0.5 mcg 06/29/18 13:00 07/13/18 10:40 Rocaltrol PO 0.5 mcg QDAY DIANE Administration Peritoneal Dialysis Solution 2 0 ml 07/12/18 18:00 07/13/18 10:34 ,000 ml/ Heparin Sodium ( IP 2,000 ml Porcine) 1,000 unit 0600,1000,1400,1800 DIANE Administration Docusate Sodium 100 mg 07/02/18 10:00 07/13/18 10:40 Colace PO 100 mg BID DIANE Administration Folic Acid 1 mg 07/10/18 14:00 07/13/18 10:40 Folvite PO 1 mg QDAY DIANE Administration Cefepime HCl 1 gm in 100 mls @ 200 mls/hr 07/10/18 20:00 07/12/18 17:54 Maxipime/Ns 1 Gm/100 Ml IV 200 mls/hr QPM DIANE Administration Protocol Vancomycin HCl 1 gm in 250 mls @ 167.007 mls/hr 07/13/18 12:00 07/13/18 11:42 Vancomycin/Ns 1 Gm/250 Ml IV 07/13/18 13:29 167.007 mls/hr ONCE ONE Administration Insulin Human Lispro 0 unit 06/29/18 22:00 07/13/18 11:42 Humalog SUB-Q 2 unit ACHS DIANE Administration Protocol Lactulose 20 gm 07/13/18 12:00 Cephulac PO TID PRN Constipation Lidocaine 1 each 06/29/18 13:00 07/13/18 11:58 Lidoderm 5% TD 1 each QDAY DIANE Administration Midodrine 10 mg 07/01/18 14:00 07/13/18 07:59 Proamatine PO 10 mg TID DIANE Administration Morphine Sulfate 2 mg 07/08/18 14:51 07/13/18 06:27 Morphine IV 2 mg Q4H PRN Administration Pain, Moderate (4-6) Pantoprazole Sodium 40 mg 07/08/18 10:00 07/13/18 10:40 Protonix PO 40 mg QDAY DIANE Administration Polyethylene Glycol 17 gm 07/02/18 10:00 07/13/18 10:39 Miralax 3350 PO 17 gm QDAY DIANE Administration Sevelamer Carbonate 1,600 mg 06/29/18 12:00 07/13/18 11:37 Renvela PO 1,600 mg TIDWM DIANE Administration Nutrition/Malnutrition Assess - Dietary Evaluation Nutrition/Malnutrition Findings: Nutrition Notes Start: 07/05/18 14:49 Freq: Status: Active Protocol: Document 07/09/18 14:17 EB (Rec: 07/09/18 14:32 [id number]) Co-Sign 07/09/18 14:17 RM Nutrition Notes Initial or Follow up Reassessment Current Diagnosis Diabetes Other Pertinent Diagnosis ESRD on PD, Possible sepsis Current Diet Renal,Cardiac with Nepro daily Labs/Tests Reviewed Pertinent Medications Reviewed Height 5 ft 6 in Weight 102.5 kg [place] Body Weight (kg) 59.09 BMI 36.4 Weight change and time frame Wt increase likely due to fluid change Subjective/Other Information Pt received PD earlier today. Pt resting in bed and states she ate about 50% of her breakfast and meals yesterday. She had not touched her lunch that was delivered this afternoon. Pt reports fair appetite, but says she really enjoys and drinks her ONS daily. Percent of energy/protein needs met: 86%/100% Burn Absent Trauma Absent Current % PO Fair (50-74%) #1 Nutrition Diagnosis Inadequate oral intake As Evidenced by Signs and Symptoms pt meeting 86% and 100% of edis and pro needs, respectively Diagnosis Progress(for reassessment Resolved documentation) Is patient on ventilator? No Is Patient Ambulatory and/or Out of Bed Yes REE-([facility]-ambulatory/OOB) [ [id number]] Kcal/Kg value to use for calculation 17 Approximate Energy Requirements Using 1743 kcal/Kg Calculation Used for Recommendations Kcal/kg Additional Notes Protein Needs: 92-100g (1.2-1. 3g/kg, 77kg adjBW) Fluid Needs: 1 ml/kcal Nutrition Intervention Change Diet Order: Continue current Add Supplement/Snack (indicate name/kcal Nepro 1 daily /protein ) Provides kCal: 425 Provides Protein (gm) 19 Goal #1 Continue to meet at least 75% of calorie and protein needs via PO and ONS intakes Anticipated Discharge Needs: Renal diet Follow-Up By: 07/16/18 Additional Comments F/u: PO and ONS intakes
[2018-07-13 14:52] LABS: Basophils % (Manual) 0 % (0.0-1.8); Eosinophils % (Manual) 0 % (0.0-4.3); Monocytes % (Manual) 0 % (0.0-7.3); Total Cells Counted 100
[2018-07-13 14:55] LABS: Anisocytosis 1+; Platelet Estimate Consistent w Auto; Poikilocytosis 1+
[2018-07-13] MEDS: MAXIPIME/NS 1 GM/100 ML 1 GM/100 ML BAG IV SCH (17:31)
--- NOTE | 2018-07-13 21:56 | Progress Note ---
Assessment and Plan atient Receiving Peritoneal dialysis.Patient sleeping.Patient is on room air.O2 saturation 96% . Patient Obese. Having excessive day time sleepiness. Recommend sleep study as out patient.Venous doppler studies reported extensive left leg D VT.Patient is on Apixaban.. - Patient Problems (1) NSTEMI (non-ST elevated myocardial infarction) Current Visit: Yes Status: Acute Plan to address problem: Management as per cardiology. (2) HTN (hypertension) Current Visit: Yes Status: Acute Plan to address problem: Management as per primary care. (3) Diabetes Current Visit: Yes Status: Chronic Plan to address problem: Mangement as per primary care. (4) ESRD on peritoneal dialysis Current Visit: Yes Status: Acute Plan to address problem: Management as per Nephrology. Patient is on peritoneal dialysis. (5) Elevated d-dimer Current Visit: Yes Status: Acute Plan to address problem: Perfusion lung scan reported low probability for pulmonary emboli. Venous doppler studies of legs reported extensive left leg DVT. (6) Obesity (BMI 30.0-34.9) Current Visit: Yes Status: Acute Plan to address problem: Diet and exercise to loose weight. Sleep study as out patient. (7) DVT (deep venous thrombosis) Current Visit: Yes Status: Acute Qualifiers: DVT location: lower extremity Chronicity: acute Plan to address problem: Patients venous doppler studies reported extensive left leg DVT. Patient is on Apixaban. Subjective Date of service: 07/13/18 Principal diagnosis: dvt Interval history: Patient Receiving Peritoneal dialysis.Patient sleeping.Patient is on room air.O2 saturation 96% . Patient Obese. Having excessive day time sleepiness. Recommend sleep study as out patient.Venous doppler studies reported extensive left leg DVT.Patient is on Apixaban. Objective Vital Signs - 12hr 07/13/18 07/13/18 07/13/18 13:12 14:34 17:43 Temperature 98.6 F Pulse Rate 97 H 104 H Respiratory 18 18 Rate Blood Pressure 98/53 111/76 O2 Sat by Pulse 94 95 Oximetry 07/13/18 20:17 Temperature 97.4 F L Pulse Rate 107 H Respiratory 20 Rate Blood Pressure 145/73 O2 Sat by Pulse 96 Oximetry Constitutional: no acute distress, asleep Eyes: non-icteric ENT: oropharynx moist, other (mallampati 3) Neck: supple, no lymphadenopathy, no JVD, other (large neck circumference) Effort: normal Ascultation: Bilateral: diminished breath sounds, rhonchi (scant in bases) Percussion: Bilateral: not dull Cardiovascular: regular rate and rhythm, other (No R/M) Gastrointestinal: normoactive bowel sounds, soft, non-distended, other (No HSM, PD cathetr, clean dry site, mild lower abdominal tenderness, no rebound) Integumentary: normal Extremities: no cyanosis, no edema, pulses normal, no ischemia or petechiae Neurologic: normal mental status, non-focal exam (grossly), pupils equal and round, motor strength normal and Psychiatric: mood appropriate, affect normal CBC and BMP: 07/13/18 05:28 07/13/18 05:28 ABG, PT/INR, D-dimer: PT/INR, D-dimer PT 13.6 Sec. (12.2-14.9) 07/03/18 12:39 INR 0.98 (0.87-1.13) 07/03/18 12:39 D-Dimer > 98214 ng/mlDDU (0-234) H 06/28/18 22:26 Abnormal lab findings: Abnormal Labs 06/28/18 06/28/18 06/28/18 10:38 20:54 20:54 WBC 24.8 H RBC Hgb 16.6 H Hct 50.3 H MCV 107 H MCH 35 H RDW 15.6 H Plt Count Lymph % (Auto) Lymph # Baso # Seg Neutrophils % Seg Neuts % (Manual) 95.0 H Lymphocytes % (Manual) 3.0 L Nucleated RBC % Seg Neutrophils # Seg Neutrophils # Man 23.6 H Lymphocytes # (Manual) 0.7 L Monocytes # (Manual) D-Dimer Heparin Anti-Xa Level Sodium 131 L Potassium Chloride 89.6 L Carbon Dioxide 19 L BUN 29 H Creatinine 9.3 H Glucose 174 H POC Glucose Lactic Acid Calcium ALT 5 L Troponin T 0.073 H C-Reactive Protein Albumin 3.2 L Triglycerides 194 H HDL Cholesterol 68 H Vitamin B12 Folate 06/28/18 06/29/18 06/29/18 22:26 12:18 13:30 WBC RBC Hgb Hct MCV MCH RDW Plt Count Lymph % (Auto) Lymph # Baso # Seg Neutrophils % Seg Neuts % (Manual) Lymphocytes % (Manual) Nucleated RBC % Seg Neutrophils # Seg Neutrophils # Man Lymphocytes # (Manual) Monocytes # (Manual) D-Dimer > 97189 H Heparin Anti-Xa Level Sodium Potassium Chloride Carbon Dioxide BUN Creatinine Glucose POC Glucose 168 H Lactic Acid Calcium ALT Troponin T 0.073 H C-Reactive Protein Albumin Triglycerides HDL Cholesterol Vitamin B12 Folate 06/29/18 06/29/18 06/29/18 13:30 14:11 16:36 WBC 19.8 H RBC Hgb 14.7 H Hct 45.4 H MCV 108 H MCH 35 H RDW 15.9 H Plt Count Lymph % (Auto) Lymph # Baso # Seg Neutrophils % Seg Neuts % (Manual) Lymphocytes % (Manual) Nucleated RBC % Seg Neutrophils # Seg Neutrophils # Man Lymphocytes # (Manual) Monocytes # (Manual) D-Dimer Heparin Anti-Xa Level Sodium 133 L Potassium Chloride 91.7 L Carbon Dioxide 20 L BUN 33 H Creatinine 9.9 H Glucose 196 H POC Glucose 165 H Lactic Acid Calcium ALT Troponin T C-Reactive Protein Albumin Triglycerides HDL Cholesterol Vitamin B12 Folate 06/29/18 06/29/18 06/30/18 20:37 22:01 04:49 WBC 14.8 H RBC Hgb Hct MCV 106 H MCH 35 H RDW 15.5 H Plt Count Lymph % (Auto) Lymph # Baso # Seg Neutrophils % Seg Neuts % (Manual) 90.0 H Lymphocytes % (Manual) 5.0 L Nucleated RBC % Seg Neutrophils # Seg Neutrophils # Man 13.3 H Lymphocytes # (Manual) 0.7 L Monocytes # (Manual) D-Dimer Heparin Anti-Xa Level Sodium Potassium Chloride Carbon Dioxide BUN Creatinine Glucose POC Glucose 202 H Lactic Acid Calcium ALT Troponin T 0.077 H C-Reactive Protein Albumin Triglycerides HDL Cholesterol Vitamin B12 Folate 06/30/18 06/30/18 06/30/18 04:49 08:27 12:17 WBC RBC Hgb Hct MCV MCH RDW Plt Count Lymph % (Auto) Lymph # Baso # Seg Neutrophils % Seg Neuts % (Manual) Lymphocytes % (Manual) Nucleated RBC % Seg Neutrophils # Seg Neutrophils # Man Lymphocytes # (Manual) Monocytes # (Manual) D-Dimer Heparin Anti-Xa Level Sodium 134 L Potassium 3.5 L Chloride 94.7 L Carbon Dioxide BUN 30 H Creatinine 8.8 H Glucose 182 H POC Glucose 170 H 145 H Lactic Acid Calcium 7.9 L ALT Troponin T C-Reactive Protein Albumin Triglycerides HDL Cholesterol Vitamin B12 Folate 06/30/18 06/30/18 07/01/18 16:44 22:06 07:21 WBC 11.8 H RBC 3.32 L Hgb Hct MCV 105 H MCH 35 H RDW 15.5 H Plt Count 125 L Lymph % (Auto) Lymph # Baso # Seg Neutrophils % Seg Neuts % (Manual) Lymphocytes % (Manual) Nucleated RBC % Seg Neutrophils # Seg Neutrophils # Man Lymphocytes # (Manual) Monocytes # (Manual) D-Dimer Heparin Anti-Xa Level Sodium Potassium Chloride Carbon Dioxide BUN Creatinine Glucose POC Glucose 155 H 174 H Lactic Acid Calcium ALT Troponin T C-Reactive Protein Albumin Triglycerides HDL Cholesterol Vitamin B12 Folate 07/01/18 07/01/18 07/01/18 07:21 08:22 11:38 WBC RBC Hgb Hct MCV MCH RDW Plt Count Lymph % (Auto) Lymph # Baso # Seg Neutrophils % Seg Neuts % (Manual) Lymphocytes % (Manual) Nucleated RBC % Seg Neutrophils # Seg Neutrophils # Man Lymphocytes # (Manual) Monocytes # (Manual) D-Dimer Heparin Anti-Xa Level Sodium 134 L Potassium Chloride 95.9 L Carbon Dioxide BUN 31 H Creatinine 8.4 H Glucose 151 H POC Glucose 117 H 166 H Lactic Acid Calcium 7.8 L ALT Troponin T C-Reactive Protein Albumin Triglycerides HDL Cholesterol Vitamin B12 Folate 07/01/18 07/01/18 07/01/18 13:32 13:32 16:27 WBC RBC Hgb Hct MCV MCH RDW Plt Count Lymph % (Auto) Lymph # Baso # Seg Neutrophils % Seg Neuts % (Manual) Lymphocytes % (Manual) Nucleated RBC % Seg Neutrophils # Seg Neutrophils # Man Lymphocytes # (Manual) Monocytes # (Manual) D-Dimer Heparin Anti-Xa Level Sodium Potassium Chloride Carbon Dioxide BUN Creatinine Glucose POC Glucose 149 H Lactic Acid 2.20 H* Calcium ALT Troponin T C-Reactive Protein 7.40 H Albumin Triglycerides HDL Cholesterol Vitamin B12 Folate 07/01/18 07/01/18 07/02/18 19:35 21:36 05:22 WBC RBC Hgb Hct MCV MCH RDW Plt Count Lymph % (Auto) Lymph # Baso # Seg Neutrophils % Seg Neuts % (Manual) Lymphocytes % (Manual) Nucleated RBC % Seg Neutrophils # Seg Neutrophils # Man Lymphocytes # (Manual) Monocytes # (Manual) D-Dimer Heparin Anti-Xa Level Sodium Potassium Chloride Carbon Dioxide BUN Creatinine Glucose POC Glucose 129 H Lactic Acid 2.60 H* 2.20 H* Calcium ALT Troponin T C-Reactive Protein Albumin Triglycerides HDL Cholesterol Vitamin B12 Folate 07/02/18 07/02/18 07/02/18 05:22 05:22 07:11 WBC 12.6 H RBC 3.51 L Hgb Hct MCV 105 H MCH 35 H RDW Plt Count 132 L Lymph % (Auto) Lymph # Baso # Seg Neutrophils % Seg Neuts % (Manual) 92.0 H Lymphocytes % (Manual) 2.0 L Nucleated RBC % Seg Neutrophils # Seg Neutrophils # Man 11.6 H Lymphocytes # (Manual) 0.3 L Monocytes # (Manual) D-Dimer Heparin Anti-Xa Level Sodium 131 L Potassium 3.3 L Chloride 93.1 L Carbon Dioxide BUN 31 H Creatinine 7.5 H Glucose 228 H POC Glucose 215 H Lactic Acid Calcium 7.7 L ALT Troponin T C-Reactive Protein Albumin Triglycerides HDL Cholesterol Vitamin B12 Folate 07/02/18 07/02/18 07/03/18 15:35 21:56 10:56 WBC RBC Hgb Hct MCV MCH RDW Plt Count Lymph % (Auto) Lymph # Baso # Seg Neutrophils % Seg Neuts % (Manual) Lymphocytes % (Manual) Nucleated RBC % Seg Neutrophils # Seg Neutrophils # Man Lymphocytes # (Manual) Monocytes # (Manual) D-Dimer Heparin Anti-Xa Level Sodium 130 L Potassium Chloride 91.6 L Carbon Dioxide BUN 33 H Creatinine 7.8 H Glucose POC Glucose 123 H 135 H Lactic Acid Calcium 7.7 L ALT Troponin T C-Reactive Protein Albumin Triglycerides HDL Cholesterol Vitamin B12 Folate 07/03/18 07/03/18 07/03/18 11:00 21:03 22:06 WBC 11.9 H RBC 3.59 L Hgb Hct MCV 103 H MCH 35 H RDW Plt Count Lymph % (Auto) Lymph # Baso # Seg Neutrophils % Seg Neuts % (Manual) 94.0 H Lymphocytes % (Manual) 5.0 L Nucleated RBC % Seg Neutrophils # Seg Neutrophils # Man 11.2 H Lymphocytes # (Manual) 0.6 L Monocytes # (Manual) D-Dimer Heparin Anti-Xa Level 0.28 L Sodium Potassium Chloride Carbon Dioxide BUN Creatinine Glucose POC Glucose 177 H Lactic Acid Calcium ALT Troponin T C-Reactive Protein Albumin Triglycerides HDL Cholesterol Vitamin B12 Folate 07/04/18 07/04/18 07/04/18 01:08 05:22 05:22 WBC 13.1 H RBC Hgb Hct MCV 104 H MCH 35 H RDW Plt Count 139 L Lymph % (Auto) 5.0 L Lymph # 0.7 L Baso # 0.2 H Seg Neutrophils % 87.7 H Seg Neuts % (Manual) Lymphocytes % (Manual) Nucleated RBC % Seg Neutrophils # 11.5 H Seg Neutrophils # Man Lymphocytes # (Manual) Monocytes # (Manual) D-Dimer Heparin Anti-Xa Level Sodium 132 L Potassium 3.1 L Chloride 92.4 L Carbon Dioxide BUN 30 H Creatinine 7.4 H Glucose 113 H POC Glucose 106 H Lactic Acid Calcium 7.8 L ALT Troponin T C-Reactive Protein Albumin Triglycerides HDL Cholesterol Vitamin B12 Folate 07/04/18 07/04/18 07/04/18 05:22 12:15 14:59 WBC RBC Hgb Hct MCV MCH RDW Plt Count Lymph % (Auto) Lymph # Baso # Seg Neutrophils % Seg Neuts % (Manual) Lymphocytes % (Manual) Nucleated RBC % Seg Neutrophils # Seg Neutrophils # Man Lymphocytes # (Manual) Monocytes # (Manual) D-Dimer Heparin Anti-Xa Level 1.31 H 1.70 H Sodium Potassium Chloride Carbon Dioxide BUN Creatinine Glucose POC Glucose 200 H Lactic Acid Calcium ALT Troponin T C-Reactive Protein Albumin Triglycerides HDL Cholesterol Vitamin B12 Folate 07/04/18 07/05/18 07/05/18 20:56 06:17 06:17 WBC RBC 3.51 L Hgb Hct MCV 104 H MCH 35 H RDW Plt Count Lymph % (Auto) 7.8 L Lymph # 0.7 L Baso # Seg Neutrophils % 85.2 H Seg Neuts % (Manual) Lymphocytes % (Manual) Nucleated RBC % Seg Neutrophils # Seg Neutrophils # Man Lymphocytes # (Manual) Monocytes # (Manual) D-Dimer Heparin Anti-Xa Level Sodium 132 L Potassium 3.1 L Chloride 92.7 L Carbon Dioxide BUN 29 H Creatinine 7.3 H Glucose 115 H POC Glucose 133 H Lactic Acid Calcium 7.9 L ALT Troponin T C-Reactive Protein Albumin Triglycerides HDL Cholesterol Vitamin B12 Folate 07/05/18 07/06/18 07/06/18 23:47 06:53 06:53 WBC RBC 3.47 L Hgb Hct MCV 104 H MCH 35 H RDW Plt Count Lymph % (Auto) Lymph # Baso # Seg Neutrophils % Seg Neuts % (Manual) 93.0 H Lymphocytes % (Manual) 2.0 L Nucleated RBC % Seg Neutrophils # Seg Neutrophils # Man 8.6 H Lymphocytes # (Manual) 0.2 L Monocytes # (Manual) D-Dimer Heparin Anti-Xa Level Sodium 132 L Potassium 3.2 L Chloride 94.5 L Carbon Dioxide BUN 32 H Creatinine 8.7 H Glucose 106 H POC Glucose 112 H Lactic Acid Calcium 7.8 L ALT Troponin T C-Reactive Protein Albumin Triglycerides HDL Cholesterol Vitamin B12 Folate 07/06/18 07/06/18 07/07/18 16:23 22:56 07:56 WBC RBC Hgb Hct MCV MCH RDW Plt Count Lymph % (Auto) Lymph # Baso # Seg Neutrophils % Seg Neuts % (Manual) Lymphocytes % (Manual) Nucleated RBC % Seg Neutrophils # Seg Neutrophils # Man Lymphocytes # (Manual) Monocytes # (Manual) D-Dimer Heparin Anti-Xa Level Sodium Potassium Chloride Carbon Dioxide BUN Creatinine Glucose POC Glucose 126 H 139 H 181 H Lactic Acid Calcium ALT Troponin T C-Reactive Protein Albumin Triglycerides HDL Cholesterol Vitamin B12 Folate 07/07/18 07/07/18 07/07/18 09:35 09:35 12:52 WBC RBC Hgb Hct MCV 105 H MCH 35 H RDW Plt Count Lymph % (Auto) 6.3 L Lymph # 0.6 L Baso # Seg Neutrophils % 87.9 H Seg Neuts % (Manual) Lymphocytes % (Manual) Nucleated RBC % Seg Neutrophils # 8.2 H Seg Neutrophils # Man Lymphocytes # (Manual) Monocytes # (Manual) D-Dimer Heparin Anti-Xa Level Sodium 130 L Potassium 3.4 L Chloride 90.3 L Carbon Dioxide BUN 29 H Creatinine 8.0 H Glucose 201 H POC Glucose 161 H Lactic Acid Calcium 8.0 L ALT Troponin T C-Reactive Protein Albumin Triglycerides HDL Cholesterol Vitamin B12 Folate 07/07/18 07/08/18 07/08/18 21:56 05:19 05:19 WBC 12.7 H RBC Hgb Hct MCV 104 H MCH 35 H RDW Plt Count Lymph % (Auto) Lymph # Baso # Seg Neutrophils % Seg Neuts % (Manual) 92.0 H Lymphocytes % (Manual) 5.0 L Nucleated RBC % 1.0 H Seg Neutrophils # Seg Neutrophils # Man 11.7 H Lymphocytes # (Manual) 0.6 L Monocytes # (Manual) D-Dimer Heparin Anti-Xa Level Sodium 134 L Potassium 3.4 L Chloride 93.6 L Carbon Dioxide BUN 30 H Creatinine 8.0 H Glucose 184 H POC Glucose 162 H Lactic Acid Calcium ALT Troponin T C-Reactive Protein Albumin Triglycerides HDL Cholesterol Vitamin B12 Folate 07/08/18 07/08/18 07/08/18 05:19 05:19 08:25 WBC RBC Hgb Hct MCV MCH RDW Plt Count Lymph % (Auto) Lymph # Baso # Seg Neutrophils % Seg Neuts % (Manual) Lymphocytes % (Manual) Nucleated RBC % Seg Neutrophils # Seg Neutrophils # Man Lymphocytes # (Manual) Monocytes # (Manual) D-Dimer Heparin Anti-Xa Level Sodium Potassium Chloride Carbon Dioxide BUN Creatinine Glucose POC Glucose 200 H Lactic Acid Calcium ALT Troponin T C-Reactive Protein Albumin Triglycerides HDL Cholesterol Vitamin B12 1416 H Folate 2.39 L 07/08/18 07/08/18 07/08/18 11:48 16:14 21:53 WBC RBC Hgb Hct MCV MCH RDW Plt Count Lymph % (Auto) Lymph # Baso # Seg Neutrophils % Seg Neuts % (Manual) Lymphocytes % (Manual) Nucleated RBC % Seg Neutrophils # Seg Neutrophils # Man Lymphocytes # (Manual) Monocytes # (Manual) D-Dimer Heparin Anti-Xa Level Sodium Potassium Chloride Carbon Dioxide BUN Creatinine Glucose POC Glucose 202 H 176 H 219 H Lactic Acid Calcium ALT Troponin T C-Reactive Protein Albumin Triglycerides HDL Cholesterol Vitamin B12 Folate 07/09/18 07/09/18 07/09/18 07:50 09:51 09:51 WBC 15.8 H RBC Hgb Hct 43.4 H MCV 105 H MCH 34 H RDW Plt Count Lymph % (Auto) Lymph # Baso # Seg Neutrophils % Seg Neuts % (Manual) 94.0 H Lymphocytes % (Manual) 3.0 L Nucleated RBC % 1.0 H Seg Neutrophils # Seg Neutrophils # Man 14.9 H Lymphocytes # (Manual) 0.5 L Monocytes # (Manual) D-Dimer Heparin Anti-Xa Level Sodium 135 L Potassium Chloride 95.5 L Carbon Dioxide BUN 29 H Creatinine 8.4 H Glucose 204 H POC Glucose 163 H Lactic Acid Calcium ALT Troponin T C-Reactive Protein Albumin Triglycerides HDL Cholesterol Vitamin B12 Folate 07/09/18 07/09/18 07/09/18 11:50 18:47 22:16 WBC RBC Hgb Hct MCV MCH RDW Plt Count Lymph % (Auto) Lymph # Baso # Seg Neutrophils % Seg Neuts % (Manual) Lymphocytes % (Manual) Nucleated RBC % Seg Neutrophils # Seg Neutrophils # Man Lymphocytes # (Manual) Monocytes # (Manual) D-Dimer Heparin Anti-Xa Level Sodium Potassium Chloride Carbon Dioxide BUN Creatinine Glucose POC Glucose 156 H 176 H 189 H Lactic Acid Calcium ALT Troponin T C-Reactive Protein Albumin Triglycerides HDL Cholesterol Vitamin B12 Folate 07/10/18 07/10/18 07/10/18 05:35 08:22 08:52 WBC 17.9 H RBC Hgb Hct MCV 105 H MCH 34 H RDW Plt Count Lymph % (Auto) Lymph # Baso # Seg Neutrophils % Seg Neuts % (Manual) 87.0 H Lymphocytes % (Manual) 6.0 L Nucleated RBC % Seg Neutrophils # Seg Neutrophils # Man 15.6 H Lymphocytes # (Manual) 1.1 L Monocytes # (Manual) 1.1 H D-Dimer Heparin Anti-Xa Level Sodium 135 L Potassium Chloride 92.8 L Carbon Dioxide BUN 27 H Creatinine 7.5 H Glucose 175 H POC Glucose 129 H Lactic Acid Calcium ALT Troponin T C-Reactive Protein Albumin Triglycerides HDL Cholesterol Vitamin B12 Folate 07/10/18 07/10/18 07/10/18 11:47 18:22 21:32 WBC RBC Hgb Hct MCV MCH RDW Plt Count Lymph % (Auto) Lymph # Baso # Seg Neutrophils % Seg Neuts % (Manual) Lymphocytes % (Manual) Nucleated RBC % Seg Neutrophils # Seg Neutrophils # Man Lymphocytes # (Manual) Monocytes # (Manual) D-Dimer Heparin Anti-Xa Level Sodium Potassium Chloride Carbon Dioxide BUN Creatinine Glucose POC Glucose 189 H 211 H 306 H Lactic Acid Calcium ALT Troponin T C-Reactive Protein Albumin Triglycerides HDL Cholesterol Vitamin B12 Folate 07/11/18 07/11/18 07/11/18 04:10 07:36 11:49 WBC 19.4 H RBC Hgb Hct MCV 107 H MCH 35 H RDW 15.3 H Plt Count Lymph % (Auto) Lymph # Baso # Seg Neutrophils % Seg Neuts % (Manual) 89.0 H Lymphocytes % (Manual) 4.0 L Nucleated RBC % Seg Neutrophils # Seg Neutrophils # Man 17.3 H Lymphocytes # (Manual) 0.8 L Monocytes # (Manual) D-Dimer Heparin Anti-Xa Level Sodium Potassium Chloride Carbon Dioxide BUN Creatinine Glucose POC Glucose 113 H 123 H Lactic Acid Calcium ALT Troponin T C-Reactive Protein Albumin Triglycerides HDL Cholesterol Vitamin B12 Folate 07/11/18 07/11/18 07/12/18 17:35 23:28 00:48 WBC 17.0 H RBC Hgb Hct MCV 106 H MCH 35 H RDW Plt Count Lymph % (Auto) Lymph # Baso # Seg Neutrophils % Seg Neuts % (Manual) 92.0 H Lymphocytes % (Manual) 3.0 L Nucleated RBC % Seg Neutrophils # Seg Neutrophils # Man 15.6 H Lymphocytes # (Manual) 0.5 L Monocytes # (Manual) 0.9 H D-Dimer Heparin Anti-Xa Level Sodium Potassium Chloride Carbon Dioxide BUN Creatinine Glucose POC Glucose 207 H 188 H Lactic Acid Calcium ALT Troponin T C-Reactive Protein Albumin Triglycerides HDL Cholesterol Vitamin B12 Folate 07/12/18 07/12/18 07/12/18 04:05 09:21 12:05 WBC RBC Hgb Hct MCV MCH RDW Plt Count Lymph % (Auto) Lymph # Baso # Seg Neutrophils % Seg Neuts % (Manual) Lymphocytes % (Manual) Nucleated RBC % Seg Neutrophils # Seg Neutrophils # Man Lymphocytes # (Manual) Monocytes # (Manual) D-Dimer Heparin Anti-Xa Level Sodium Potassium Chloride Carbon Dioxide BUN Creatinine Glucose POC Glucose 147 H 125 H 113 H Lactic Acid Calcium ALT Troponin T C-Reactive Protein Albumin Triglycerides HDL Cholesterol Vitamin B12 Folate 07/12/18 07/13/18 07/13/18 22:25 05:28 05:28 WBC 15.5 H RBC 3.62 L Hgb Hct MCV 105 H MCH 34 H RDW Plt Count Lymph % (Auto) Lymph # Baso # Seg Neutrophils % Seg Neuts % (Manual) 99.0 H Lymphocytes % (Manual) 1.0 L Nucleated RBC % Seg Neutrophils # Seg Neutrophils # Man 15.3 H Lymphocytes # (Manual) 0.2 L Monocytes # (Manual) D-Dimer Heparin Anti-Xa Level Sodium 133 L Potassium Chloride 95.0 L Carbon Dioxide BUN 43 H Creatinine 9.1 H Glucose 124 H POC Glucose 162 H Lactic Acid Calcium 8.0 L ALT Troponin T C-Reactive Protein Albumin Triglycerides HDL Cholesterol Vitamin B12 Folate 07/13/18 07/13/18 07/13/18 07:59 11:40 16:41 WBC RBC Hgb Hct MCV MCH RDW Plt Count Lymph % (Auto) Lymph # Baso # Seg Neutrophils % Seg Neuts % (Manual) Lymphocytes % (Manual) Nucleated RBC % Seg Neutrophils # Seg Neutrophils # Man Lymphocytes # (Manual) Monocytes # (Manual) D-Dimer Heparin Anti-Xa Level Sodium Potassium Chloride Carbon Dioxide BUN Creatinine Glucose POC Glucose 191 H 195 H 204 H Lactic Acid Calcium ALT Troponin T C-Reactive Protein Albumin Triglycerides HDL Cholesterol Vitamin B12 Folate Allied health notes reviewed: nursing
[2018-07-14] MEDS: [UNRECOGNIZED DRUG - OTHER] IP SCH ×2 (05:24→10:26)
[2018-07-14 06:01] LABS: Hematocrit 41.4 % (30.3-42.9); Hemoglobin 13.3 gm/dl (10.1-14.3); Mean Corpuscular HGB Conc 32 % (30-34); Mean Corpuscular Volume 107 fl (79-97); Platelet Count 246 K/mm3 (140-440); Red Blood Count 3.89 M/mm3 (3.65-5.03); Red Cell Distribution Width 15.2 % (13.2-15.2)
[2018-07-14 06:29] LABS: Calcium 8.5 mg/dL (8.4-10.2)
[2018-07-14] MEDS: RENVELA PO SCH ×4 (08:20→17:48)
[2018-07-14] MEDS: PROAMATINE PO SCH ×3 (08:20→21:29)
[2018-07-14] MEDS: HumaLOG SUB-Q SCH ×4 (08:20→22:15)
--- NOTE | 2018-07-14 08:33 | Hem/Onc Progress Note ---
Assessment and Plan 1. Left leg deep venous thrombosis. The patient was on heparin drip. The patient is on peritoneal dialysis. The dose of Eliquis or any direct thrombin inhibitors or other anticoagulation monitoring may become challenging. I will discuss with other team members regarding the dosage. The question arises if a lower dose of Eliquis is sufficient. 2. MCV elevated. We will investigate. 3. Elevated D-dimers. 4. History of renal failure, on peritoneal dialysis. 5. History of hypertension. She was hypotensive at admission. 6. History of diabetes. 7. I will follow the patient during inpatient stay and then in the clinic setting for anticoagulation management. Option of Coumadin is also available but that would involve monitoring. 07/05 - d/w dr cartagena - pharmacy to help reg NOAC - ? eliquis 2.5 q 12? 07/06 - pharmacy has placed pt on 5 mg q 12 07/08 - pt on eliquis - d/w dr noyola - Placement pending gets PD 07/09 - pt had fever on eliquis for left leg dvt. h/o abdo discomfort - on and off 07/10/2018 DVT - on eliquis c/o abdo discomfort - d/w dr andrade - US abdo elevated MCV - low folate - replace ESRD on PD h/o fever 07/11 US abdo done - report pending Leukocytosis - seen by ID on eliquis 07/13/2018 pt says PD catheter not working US abdo done ID - for Abx eliquis for DVT 07/14 DVT - eliquis WBC high - on Abx MCV elevated - low folate - on Rx on Pd - Patient Problems (1) DVT (deep venous thrombosis) Current Visit: Yes Status: Acute Qualifiers: DVT location: lower extremity Chronicity: acute Subjective Date of service: 07/14/18 Principal diagnosis: dvt Interval history: PD catheter issues Objective - Constitutional Vitals: Last Vital Signs Temp 99.1 F 07/14/18 07:38 Pulse 110 H 07/14/18 07:38 Resp 18 07/14/18 07:38 BP 86/56 07/14/18 07:38 Pulse Ox 94 07/14/18 07:38 Pain Intensity (0-10): denies any pain General appearance: no acute distress Performance status: 3-limited selfcare - EENT Eyes: EOM intact ENT: clear oral mucosa Lymph node exam: negative cervical - Neck Neck: normal ROM - Respiratory Respiratory effort: Positive: normal Respiratory: bilateral: CTA - Cardiovascular Heart Sounds: Present: S1 & S2 Extremity abnormal: edema - Gastrointestinal General gastrointestinal: Present: soft, non-tender, other (pd cath) Rectal Exam: deferred - Genitourinary Female genitourinary: Present: deferred - Integumentary Integumentary: warm - Musculoskeletal Musculoskeletal: generalized weakness - Neurologic Neurologic: moves all extremities - Labs Lab Results: Laboratory Results - last 24 hr 07/13/18 07/13/18 07/13/18 05:28 11:40 16:41 WBC RBC Hgb Hct MCV MCH MCHC RDW Plt Count Add Manual Diff Complete Total Counted 100 Seg Neutrophils % Seg Neuts % (Manual) 99.0 H Band Neutrophils % 0 Lymphocytes % (Manual) 1.0 L Reactive Lymphs % (Man) 0 Monocytes % (Manual) 0 Eosinophils % (Manual) 0 Basophils % (Manual) 0 Metamyelocytes % 0 Myelocytes % 0 Promyelocytes % 0 Blast Cells % 0 Nucleated RBC % Not Reportable Seg Neutrophils # Man 15.3 H Band Neutrophils # 0.0 Lymphocytes # (Manual) 0.2 L Abs React Lymphs (Man) 0.0 Monocytes # (Manual) 0.0 Eosinophils # (Manual) 0.0 Basophils # (Manual) 0.0 Metamyelocytes # 0.0 Myelocytes # 0.0 Promyelocytes # 0.0 Blast Cells # 0.0 WBC Morphology Not Reportable Hypersegmented Neuts Not Reportable Hyposegmented Neuts Not Reportable Hypogranular Neuts Not Reportable Smudge Cells Not Reportable Toxic Granulation Not Reportable Toxic Vacuolation Not Reportable Dohle Bodies Not Reportable Pelger-Huet Anomaly Not Reportable Nomi Rods Not Reportable Platelet Estimate Consistent w auto Clumped Platelets Not Reportable Plt Clumps, EDTA Not Reportable Large Platelets Not Reportable Giant Platelets Not Reportable Platelet Satelliting Not Reportable Plt Morphology Comment Not Reportable RBC Morphology Not Reportable Dimorphic RBCs Not Reportable Polychromasia Not Reportable Hypochromasia Not Reportable Poikilocytosis 1+ Anisocytosis 1+ Microcytosis Not Reportable Macrocytosis Not Reportable Spherocytes Not Reportable Pappenheimer Bodies Not Reportable Sickle Cells Not Reportable Target Cells Not Reportable Tear Drop Cells Not Reportable Ovalocytes Not Reportable Helmet Cells Not Reportable [place]hart-[place] Bodies Not Reportable [place] Rings Not Reportable Edgar Cells Not Reportable Bite Cells Not Reportable Crenated Cell Not Reportable Elliptocytes Not Reportable Acanthocytes (Spur) Not Reportable Rouleaux Not Reportable Hemoglobin C Crystals Not Reportable Schistocytes Not Reportable Malaria parasites Not Reportable Navneet Bodies Not Reportable Hem Pathologist Commnt No Sodium Potassium Chloride Carbon Dioxide Anion Gap BUN Creatinine Estimated GFR BUN/Creatinine Ratio Glucose POC Glucose 195 H 204 H Calcium Random Vancomycin 07/13/18 07/14/18 07/14/18 22:38 04:15 04:15 WBC 13.1 H RBC 3.89 Hgb 13.3 Hct 41.4 MCV 107 H MCH 34 H MCHC 32 RDW 15.2 Plt Count 246 Add Manual Diff Total Counted Seg Neutrophils % Election Watcher Seg Neuts % (Manual) Band Neutrophils % Lymphocytes % (Manual) Reactive Lymphs % (Man) Monocytes % (Manual) Eosinophils % (Manual) Basophils % (Manual) Metamyelocytes % Myelocytes % Promyelocytes % Blast Cells % Nucleated RBC % Seg Neutrophils # Man Band Neutrophils # Lymphocytes # (Manual) Abs React Lymphs (Man) Monocytes # (Manual) Eosinophils # (Manual) Basophils # (Manual) Metamyelocytes # Myelocytes # Promyelocytes # Blast Cells # WBC Morphology Hypersegmented Neuts Hyposegmented Neuts Hypogranular Neuts Smudge Cells Toxic Granulation Toxic Vacuolation Dohle Bodies Pelger-Huet Anomaly Nomi Rods Platelet Estimate Clumped Platelets Plt Clumps, EDTA Large Platelets Giant Platelets Platelet Satelliting Plt Morphology Comment RBC Morphology Dimorphic RBCs Polychromasia Hypochromasia Poikilocytosis Anisocytosis Microcytosis Macrocytosis Spherocytes Pappenheimer Bodies Sickle Cells Target Cells Tear Drop Cells Ovalocytes Helmet Cells [place]hart-[place] Bodies [place] Rings Edgar Cells Bite Cells Crenated Cell Elliptocytes Acanthocytes (Spur) Rouleaux Hemoglobin C Crystals Schistocytes Malaria parasites Navneet Bodies Hem Pathologist Commnt Sodium 136 L Potassium 3.7 Chloride 95.3 L Carbon Dioxide 26 Anion Gap 18 BUN 40 H Creatinine 8.1 H Estimated GFR 6 BUN/Creatinine Ratio 5 Glucose 72 POC Glucose 190 H Calcium 8.5 Random Vancomycin 07/14/18 07/14/18 04:15 07:57 WBC RBC Hgb Hct MCV MCH MCHC RDW Plt Count Add Manual Diff Total Counted Seg Neutrophils % Seg Neuts % (Manual) Band Neutrophils % Lymphocytes % (Manual) Reactive Lymphs % (Man) Monocytes % (Manual) Eosinophils % (Manual) Basophils % (Manual) Metamyelocytes % Myelocytes % Promyelocytes % Blast Cells % Nucleated RBC % Seg Neutrophils # Man Band Neutrophils # Lymphocytes # (Manual) Abs React Lymphs (Man) Monocytes # (Manual) Eosinophils # (Manual) Basophils # (Manual) Metamyelocytes # Myelocytes # Promyelocytes # Blast Cells # WBC Morphology Hypersegmented Neuts Hyposegmented Neuts Hypogranular Neuts Smudge Cells Toxic Granulation Toxic Vacuolation Dohle Bodies Pelger-Huet Anomaly Nomi Rods Platelet Estimate Clumped Platelets Plt Clumps, EDTA Large Platelets Giant Platelets Platelet Satelliting Plt Morphology Comment RBC Morphology Dimorphic RBCs Polychromasia Hypochromasia Poikilocytosis Anisocytosis Microcytosis Macrocytosis Spherocytes Pappenheimer Bodies Sickle Cells Target Cells Tear Drop Cells Ovalocytes Helmet Cells Barnhart-[place] Bodies [place] Rings [place] Cells Bite Cells Crenated Cell Elliptocytes Acanthocytes (Spur) Rouleaux Hemoglobin C Crystals Schistocytes Malaria parasites Nv[place]et Bodies Hem Pathologist Commnt Sodium Potassium Chloride Carbon Dioxide Anion Gap BUN Creatinine Estimated GFR BUN/Creatinine Ratio Glucose POC Glucose 205 H Calcium Random Vancomycin 26.0 Medications & Allergies - Medications Allergies/Adverse Reactions: Allergies No Known Allergies Allergy (Verified 08/18/14 08:52) Home Medications: Home Medications Medication Instructions Recorded Confirmed Last Taken Type Aspirin [Aspirin BABY CHEW TAB] 81 mg PO QDAY #30 08/19/14 06/29/18 06/23/15 Rx Calcitriol [Rocaltrol] 0.5 mcg PO QDAY 06/29/18 06/29/18 Unknown History Potassium Chloride [Klor-Con M20] 20 meq PO DAILY 06/29/18 06/29/18 Unknown History Sevelamer Carbonate 1,600 mg PO TID 06/29/18 06/29/18 Unknown History Simvastatin [Zocor] 20 mg PO DAILY 06/29/18 06/29/18 Unknown History Active Medications: Generic Name Dose Route Start Last Admin Trade Name Freq PRN Reason Stop Dose Admin Apixaban 5 mg 07/04/18 16:00 07/13/18 21:39 Eliquis PO 5 mg Q12HR DIANE Administration Protocol Aspirin 81 mg 06/29/18 13:00 07/13/18 10:40 Baby Aspirin PO 81 mg QDAY DIANE Administration Atorvastatin Calcium 40 mg 06/29/18 22:00 07/13/18 21:39 Lipitor PO 40 mg QHS DIANE Administration Calcitriol 0.5 mcg 06/29/18 13:00 07/13/18 10:40 Rocaltrol PO 0.5 mcg QDAY DIANE Administration Peritoneal Dialysis Solution 2 0 ml 07/12/18 18:00 07/14/18 05:24 ,000 ml/ Heparin Sodium ( IP 2,000 ml Porcine) 1,000 unit 0600,1000,1400,1800 DIANE Administration Docusate Sodium 100 mg 07/02/18 10:00 07/13/18 21:39 Colace PO 100 mg BID DIANE Administration Folic Acid 1 mg 07/10/18 14:00 07/13/18 10:40 Folvite PO 1 mg QDAY DIANE Administration Cefepime HCl 1 gm in 100 mls @ 200 mls/hr 07/10/18 20:00 07/13/18 17:31 Maxipime/Ns 1 Gm/100 Ml IV 200 mls/hr QPM DIANE Administration Protocol Insulin Human Lispro 0 unit 06/29/18 22:00 07/13/18 23:29 Humalog SUB-Q Not Given ACHS [facility] Protocol Lactulose 20 gm 07/13/18 12:00 Cephulac PO TID PRN Constipation Lidocaine 1 each 06/29/18 13:00 07/13/18 11:58 Lidoderm 5% TD 1 each QDAY DIANE Administration Midodrine 10 mg 07/01/18 14:00 07/13/18 21:39 Proamatine PO 10 mg TID DIANE Administration Morphine Sulfate 2 mg 07/08/18 14:51 07/13/18 17:45 Morphine IV 2 mg Q4H PRN Administration Pain, Moderate (4-6) Pantoprazole Sodium 40 mg 07/08/18 10:00 07/13/18 10:40 Protonix PO 40 mg QDAY DIANE Administration Polyethylene Glycol 17 gm 07/02/18 10:00 07/13/18 10:39 Miralax 3350 PO 17 gm QDAY DIANE Administration Sevelamer Carbonate 1,600 mg 06/29/18 12:00 07/13/18 17:55 Renvela PO Not Given TIDWM DIAEN
--- NOTE | 2018-07-14 08:37 | Progress Note ---
Assessment and Plan Cultures: 06/29/2018 Blood culture: No growth 07/01/2018 peritoneal dialysate culture: No growth 07/08/2018 blood culture: No growth at 48 hours 07/10/2018 peritoneal fluid culture: many PNM's 07/12/2018 Peritoneal dialysate culture: Many PMN's A/P: 67-year-old female with ESRD on peritoneal dialysis, hypertension, hyperlipidemia, diabetes mellitus type 2 who presented to the emergency room and was hospitalized on 06/29/2018 with complaints of fall. Now with: 1) Sepsis: Leukocytois trending down. secondary to PD associated peritonitis. Chest x-ray without pneumonia, blood cultures with no growth. Patient doesn't make any urine, UTI unlikely. No report of diarrhea. Abdominal Ultrasound - Moderate-sized umbilical hernia present containing adipose tissue. No herniated loops of bowel are seen.. 2 ESRD on PD: Renally dose antibiotics. 3) Left leg DVT: on anticoagulation. Recs: Continue cefepime and vancomycin renally adjusted, D5 Follow up PD fluid culture- repeat PD fluid analysis on Sunday Continue to monitor leukocytosis [facility] M: [phone] O:[phone] Subjective Date of service: 07/14/18 Principal diagnosis: dvt Objective - Constitutional Vitals: Vital Signs Temp Pulse Resp BP Pulse Ox 99.1 F 110 H 18 86/56 94 07/14/18 07:38 07/14/18 07:38 07/14/18 07:38 07/14/18 07:38 07/14/18 07:38 Temperature -Last 24 Hours Temperature 99.1 F Temperature 97.8 F Temperature 97.4 F Temperature 98.6 F - Labs CBC & Chem 7: 07/14/18 04:15 07/14/18 04:15 Labs: Abnormal lab results 07/13/18 07/13/18 07/13/18 Range/Units 05:28 11:40 16:41 WBC (4.5-11.0) K/mm3 MCV (79-97) fl MCH (28-32) pg Seg Neuts % (Manual) 99.0 H (40.0-70.0) % Lymphocytes % (Manual) 1.0 L (13.4-35.0) % Seg Neutrophils # Man 15.3 H (1.8-7.7) K/mm3 Lymphocytes # (Manual) 0.2 L (1.2-5.4) K/mm3 Sodium (137-145) mmol/L Chloride (98-107) mmol/L BUN (7-17) mg/dL Creatinine (0.7-1.2) mg/dL POC Glucose 195 H 204 H (70-105) 07/13/18 07/14/18 07/14/18 Range/Units 22:38 04:15 04:15 WBC 13.1 H (4.5-11.0) K/mm3 MCV 107 H (79-97) fl MCH 34 H (28-32) pg Seg Neuts % (Manual) (40.0-70.0) % Lymphocytes % (Manual) (13.4-35.0) % Seg Neutrophils # Man (1.8-7.7) K/mm3 Lymphocytes # (Manual) (1.2-5.4) K/mm3 Sodium 136 L (137-145) mmol/L Chloride 95.3 L (98-107) mmol/L BUN 40 H (7-17) mg/dL Creatinine 8.1 H (0.7-1.2) mg/dL POC Glucose 190 H (70-105) 07/14/18 Range/Units 07:57 WBC (4.5-11.0) K/mm3 MCV (79-97) fl MCH (28-32) pg Seg Neuts % (Manual) (40.0-70.0) % Lymphocytes % (Manual) (13.4-35.0) % Seg Neutrophils # Man (1.8-7.7) K/mm3 Lymphocytes # (Manual) (1.2-5.4) K/mm3 Sodium (137-145) mmol/L Chloride (98-107) mmol/L BUN (7-17) mg/dL Creatinine (0.7-1.2) mg/dL POC Glucose 205 H (70-105)
[2018-07-14 09:43] LABS: Anisocytosis 1+; Band Neutrophils # (Manual) 0.3 K/mm3; Basophils % (Manual) 0 % (0.0-1.8); Eosinophils % (Manual) 0 % (0.0-4.3); Total Cells Counted 100
[2018-07-14 09:44] LABS: Macrocytosis 1+; Ovalocytes Few; Platelet Estimate Consistent w Auto; Poikilocytosis 1+; Target Cells Few
[2018-07-14] MEDS: PROTONIX PO SCH (10:22)
[2018-07-14] MEDS: COLACE PO SCH ×2 (10:23→21:30)
[2018-07-14] MEDS: BABY ASPIRIN PO SCH (10:24)
[2018-07-14] MEDS: ELIQUIS PO SCH ×2 (10:24→21:31)
[2018-07-14] MEDS: ROCALTROL PO SCH (10:24)
[2018-07-14] MEDS: MIRALAX 3350 PO SCH (10:24)
[2018-07-14] MEDS: FOLVITE PO SCH (10:24)
[2018-07-14] MEDS: LIDODERM 5% TD SCH (10:24)
[2018-07-14] MEDS ORDERED: NACL 0.9% 500 ML 500 ML IV ONE (11:00)
--- NOTE | 2018-07-14 11:00 | Progress Note ---
Assessment and Plan Assessment and plan: Sepsis not present on admission - PD associated peritonitis. - PD fluid cell count noted to be elevated at 6350 . Follow-up culture results . Patient is currently on broad-spectrum antibiotic coverage - Abdominal US reveals moderate-sized umbilical hernia present containing adipose tissue. No herniated loops of bowel are seen. - Continue to monitor leukocytosis, improved. PD catheter malfunction Improved after administration of heparin. Hypotension - cont midodrine for now, ? Sepsis associated hypotension. IV fluid bolus 500 normal saline 1. I discussed with Dr. Mckeon. HLD, on statin ESRD on PD, Nephrology following Diabetes type 2, diet controlled, cont SSRI Elevated troponin/NSTEMI type 2 - Cardiology following - Stress test negative DVT left lower ext. Cont. Eliquis. Debility PT evaluation done patient unable to stand, and she lives alone. discussed with case management Patient for LTAC versus [facility] History Interval history: Patient is a 67-year-old female past medical history of end-stage renal disease on peritoneal dialysis, hypertension hyperlipidemia, diabetes mellitus type 2 on diet control, presented to ER by EMS after having a fall around 9 AM in the morning but she had no loss of consciousness or hit her head. She was sitting on bed and accidentally "slid to ground". She was unable to get up from the bed as she was feeling very weak in her legs. Her family called emergency services to break into her house around 5pm. She was then brought to the ER for further evaluation and management . She noted to have highly elevated d-dimer, elevated white count. In the ED, patient was hypotensive w/ WBC 24.8. CTA chest was unremarkable. V/Q scan was also low prob PE. She denied fever, chills, PD fluid has been clear. She was placed on Levophed, given IV Rocephin and admitted. she was diagnosed with SIRS, hypotension. She improved on Levophed was weaned off. She had swelling of the legs on both ultrasound confirmed a DVT of left lower extremity for which she has been . However patient has failure to thrive, debility, she feels very weak and unable to stand. I discussed with case management she started working on acute rehabilitation placement. The patient developed fever and leukocytosis on 07/08/18. Fever resolved but leukocytosis worsened. Antibiotics restarted and blood cultures thus far negative. ID consulted. Nurse reports PD catheter malfunctioning and not draining well previously but now improved after flushing with heparin. Patient with hypotension this morning. Patient also complained of abdominal pain. Hospitalist Physical - Constitutional Vitals: Temp Pulse Resp BP Pulse Ox 99.1 F 105 H 18 87/55 100 07/14/18 07:38 07/14/18 10:45 07/14/18 07:38 07/14/18 10:45 07/14/18 10:45 General appearance: Present: no acute distress, obese - EENT Eyes: Present: PERRL, EOM intact ENT: hearing intact, clear oral mucosa, dentition normal - Neck Neck: Present: supple, normal ROM - Respiratory Respiratory effort: normal Respiratory: bilateral: CTA - Cardiovascular Rhythm: regular Heart Sounds: Present: S1 & S2. Absent: gallop, rub - Extremities Extremities: no ischemia, No edema, Full ROM - Abdominal General gastrointestinal: soft, non-tender, non-distended, normal bowel sounds - Integumentary Integumentary: Present: clear, warm, dry - Neurologic Neurologic: CNII-XII intact, moves all extremities Results - Labs CBC & Chem 7: 07/14/18 04:15 07/14/18 04:15 Labs: Laboratory Last Values WBC 13.1 K/mm3 (4.5-11.0) H 07/14/18 04:15 RBC 3.89 M/mm3 (3.65-5.03) 07/14/18 04:15 Hgb 13.3 gm/dl (10.1-14.3) 07/14/18 04:15 Hct 41.4 % (30.3-42.9) 07/14/18 04:15 MCV 107 fl (79-97) H 07/14/18 04:15 MCH 34 pg (28-32) H 07/14/18 04:15 MCHC 32 % (30-34) 07/14/18 04:15 RDW 15.2 % (13.2-15.2) 07/14/18 04:15 Plt Count 246 K/mm3 (140-440) 07/14/18 04:15 Lymph % (Auto) 6.3 % (13.4-35.0) L 07/07/18 09:35 Stanley % (Auto) 5.4 % (0.0-7.3) 07/07/18 09:35 Eos % (Auto) 0.3 % (0.0-4.3) 07/07/18 09:35 Baso % (Auto) 0.1 % (0.0-1.8) 07/07/18 09:35 Lymph # 0.6 K/mm3 (1.2-5.4) L 07/07/18 09:35 Stanley # 0.5 K/mm3 (0.0-0.8) 07/07/18 09:35 Eos # 0.0 K/mm3 (0.0-0.4) 07/07/18 09:35 Baso # 0.0 K/mm3 (0.0-0.1) 07/07/18 09:35 Add Manual Diff Complete 07/14/18 04:15 Total Counted 100 07/14/18 04:15 Seg Neutrophils % Cover Creaser 07/14/18 04:15 Seg Neuts % (Manual) 89.0 % (40.0-70.0) H 07/14/18 04:15 Band Neutrophils % 2.0 % 07/14/18 04:15 Lymphocytes % (Manual) 6.0 % (13.4-35.0) L 07/14/18 04:15 Reactive Lymphs % (Man) 0 % 07/14/18 04:15 Monocytes % (Manual) 3.0 % (0.0-7.3) 07/14/18 04:15 Eosinophils % (Manual) 0 % (0.0-4.3) 07/14/18 04:15 Basophils % (Manual) 0 % (0.0-1.8) 07/14/18 04:15 Metamyelocytes % 0 % 07/14/18 04:15 Myelocytes % 0 % 07/14/18 04:15 Promyelocytes % 0 % 07/14/18 04:15 Blast Cells % 0 % 07/14/18 04:15 Nucleated RBC % Not Reportable 07/14/18 04:15 Seg Neutrophils # 8.2 K/mm3 (1.8-7.7) H 07/07/18 09:35 Seg Neutrophils # Man 11.7 K/mm3 (1.8-7.7) H 07/14/18 04:15 Band Neutrophils # 0.3 K/mm3 07/14/18 04:15 Lymphocytes # (Manual) 0.8 K/mm3 (1.2-5.4) L 07/14/18 04:15 Abs React Lymphs (Man) 0.0 K/mm3 07/14/18 04:15 Monocytes # (Manual) 0.4 K/mm3 (0.0-0.8) 07/14/18 04:15 Eosinophils # (Manual) 0.0 K/mm3 (0.0-0.4) 07/14/18 04:15 Basophils # (Manual) 0.0 K/mm3 (0.0-0.1) 07/14/18 04:15 Metamyelocytes # 0.0 K/mm3 07/14/18 04:15 Myelocytes # 0.0 K/mm3 07/14/18 04:15 Promyelocytes # 0.0 K/mm3 07/14/18 04:15 Blast Cells # 0.0 K/mm3 07/14/18 04:15 WBC Morphology Not Reportable 07/14/18 04:15 Hypersegmented Neuts Not Reportable 07/14/18 04:15 Hyposegmented Neuts Not Reportable 07/14/18 04:15 Hypogranular Neuts Not Reportable 07/14/18 04:15 Smudge Cells Not Reportable 07/14/18 04:15 Toxic Granulation Not Reportable 07/14/18 04:15 Toxic Vacuolation Not Reportable 07/14/18 04:15 Dohle Bodies Not Reportable 07/14/18 04:15 Pelger-Huet Anomaly Not Reportable 07/14/18 04:15 Nomi Rods Not Reportable 07/14/18 04:15 Platelet Estimate Consistent w auto 07/14/18 04:15 Clumped Platelets Not Reportable 07/14/18 04:15 Plt Clumps, EDTA Not Reportable 07/14/18 04:15 Large Platelets Not Reportable 07/14/18 04:15 Giant Platelets Not Reportable 07/14/18 04:15 Platelet Satelliting Not Reportable 07/14/18 04:15 Plt Morphology Comment Not Reportable 07/14/18 04:15 RBC Morphology Not Reportable 07/14/18 04:15 Dimorphic RBCs Not Reportable 07/14/18 04:15 Polychromasia Not Reportable 07/14/18 04:15 Hypochromasia Not Reportable 07/14/18 04:15 Poikilocytosis 1+ 07/14/18 04:15 Anisocytosis 1+ 07/14/18 04:15 Microcytosis Not Reportable 07/14/18 04:15 Macrocytosis 1+ 07/14/18 04:15 Spherocytes Not Reportable 07/14/18 04:15 Pappenheimer Bodies Not Reportable 07/14/18 04:15 Sickle Cells Not Reportable 07/14/18 04:15 Target Cells Few 07/14/18 04:15 Tear Drop Cells Not Reportable 07/14/18 04:15 Ovalocytes Few 07/14/18 04:15 Helmet Cells Not Reportable 07/14/18 04:15 [place] Bodies Not Reportable 07/14/18 04:15 [place] Rings Not Reportable 07/14/18 04:15 [place] Cells Not Reportable 07/14/18 04:15 Bite Cells Not Reportable 07/14/18 04:15 Crenated Cell Not Reportable 07/14/18 04:15 Elliptocytes Not Reportable 07/14/18 04:15 Acanthocytes (Spur) Not Reportable 07/14/18 04:15 Rouleaux Not Reportable 07/14/18 04:15 Hemoglobin C Crystals Not Reportable 07/14/18 04:15 Schistocytes Not Reportable 07/14/18 04:15 Malaria parasites Not Reportable 07/14/18 04:15 Navneet Bodies Not Reportable 07/14/18 04:15 Hem Pathologist Commnt No 07/14/18 04:15 PT 13.6 Sec. (12.2-14.9) 07/03/18 12:39 INR 0.98 (0.87-1.13) 07/03/18 12:39 APTT 34.1 Sec. (24.2-36.6) 07/03/18 12:39 D-Dimer > 13672 ng/mlDDU (0-234) H 06/28/18 22:26 Heparin Anti-Xa Level 1.70 U.I./ml (0.3-0.7) H 07/04/18 14:59 Sodium 136 mmol/L (137-145) L 07/14/18 04:15 Potassium 3.7 mmol/L (3.6-5.0) 07/14/18 04:15 Chloride 95.3 mmol/L (98-107) L 07/14/18 04:15 Carbon Dioxide 26 mmol/L (22-30) 07/14/18 04:15 Anion Gap 18 mmol/L 07/14/18 04:15 BUN 40 mg/dL (7-17) H 07/14/18 04:15 Creatinine 8.1 mg/dL (0.7-1.2) H 07/14/18 04:15 Estimated GFR 6 ml/min 07/14/18 04:15 BUN/Creatinine Ratio 5 % 07/14/18 04:15 Glucose 72 mg/dL (65-100) 07/14/18 04:15 POC Glucose 205 (70-105) H 07/14/18 07:57 Lactic Acid 2.20 mmol/L (0.7-2.0) H* 07/02/18 05:22 Calcium 8.5 mg/dL (8.4-10.2) 07/14/18 04:15 Total Bilirubin 0.40 mg/dL (0.1-1.2) 06/28/18 20:54 AST 25 units/L (5-40) 06/28/18 20:54 ALT 5 units/L (7-56) L 06/28/18 20:54 Alkaline Phosphatase 88 units/L (35-129) 06/28/18 20:54 Total Creatine Kinase 118 units/L (30-135) 06/29/18 20:37 Troponin T 0.077 ng/mL (0.00-0.029) H 06/29/18 20:37 C-Reactive Protein 7.40 mg/dL (0.00-1.30) H 07/01/18 13:32 Total Protein 7.4 g/dL (6.3-8.2) 06/28/18 20:54 Albumin 3.2 g/dL (3.9-5) L 06/28/18 20:54 Albumin/Globulin Ratio 0.8 % 06/28/18 20:54 Triglycerides 194 mg/dL (2-149) H 06/28/18 10:38 Cholesterol 167 mg/dL (50-199) 06/28/18 10:38 LDL Cholesterol Direct 61 mg/dL (50-130) 06/28/18 10:38 HDL Cholesterol 68 mg/dL (40-59) H 06/28/18 10:38 Cholesterol/HDL Ratio 2.45 % 06/28/18 10:38 Vitamin B12 1416 pg/mL (211-911) H 07/08/18 05:19 Folate 2.39 ng/mL (7.3-26.0) L 07/08/18 05:19 Fluid Type Dialysate 07/12/18 11:30 Fluid Color Straw 07/12/18 11:30 Fluid Appearance Cloudy 07/12/18 11:30 Fluid WBC 6350 /mm3 07/12/18 11:30 Fluid RBC 3 /mm3 07/12/18 11:30 Fluid Seg Neutrophils 96.0 % 07/12/18 11:30 Fluid Lymphocytes 4.0 % 07/12/18 11:30 Fluid Reactive Lymphs 0 % 07/12/18 11:30 Fluid Monocytes 0 % 07/12/18 11:30 Fluid Eosinophils 0 % 07/12/18 11:30 Fluid Basophils 0 % 07/12/18 11:30 Random Vancomycin 26.0 ug/mL (0-40.0) 07/14/18 04:15 Active Medications - Current Medications Current Medications: Generic Name Dose Route Start Last Admin Trade Name Freq PRN Reason Stop Dose Admin Apixaban 5 mg 07/04/18 16:00 07/14/18 10:24 Eliquis PO 5 mg Q12HR DIANE Administration Protocol Aspirin 81 mg 06/29/18 13:00 07/14/18 10:24 Baby Aspirin PO 81 mg QDAY DIANE Administration Atorvastatin Calcium 40 mg 06/29/18 22:00 07/13/18 21:39 Lipitor PO 40 mg QHS DIANE Administration Calcitriol 0.5 mcg 06/29/18 13:00 07/14/18 10:24 Rocaltrol PO 0.5 mcg QDAY DIANE Administration Peritoneal Dialysis Solution 2 0 ml 07/12/18 18:00 07/14/18 10:26 ,000 ml/ Heparin Sodium ( IP 2,000 ml Porcine) 1,000 unit 0600,1000,1400,1800 DIANE Administration Docusate Sodium 100 mg 07/02/18 10:00 07/14/18 10:23 Colace PO 100 mg BID DIANE Administration Folic Acid 1 mg 07/10/18 14:00 07/14/18 10:24 Folvite PO 1 mg QDAY DIANE Administration Cefepime HCl 1 gm in 100 mls @ 200 mls/hr 07/10/18 20:00 07/13/18 17:31 Maxipime/Ns 1 Gm/100 Ml IV 200 mls/hr QPM DIANE Administration Protocol Sodium Chloride 500 mls @ 999 mls/hr 07/14/18 11:00 Nacl 0.9% 500 Ml IV 07/14/18 11:30 ONCE ONE Insulin Human Lispro 0 unit 06/29/18 22:00 07/14/18 08:20 Humalog SUB-Q 3 unit ACHS DIANE Administration Protocol Lactulose 20 gm 07/13/18 12:00 Cephulac PO TID PRN Constipation Lidocaine 1 each 06/29/18 13:00 07/14/18 10:24 Lidoderm 5% TD 1 each QDAY DIANE Administration Midodrine 10 mg 07/01/18 14:00 07/14/18 08:20 Proamatine PO 10 mg TID DIANE Administration Morphine Sulfate 2 mg 07/08/18 14:51 07/13/18 17:45 Morphine IV 2 mg Q4H PRN Administration Pain, Moderate (4-6) Pantoprazole Sodium 40 mg 07/08/18 10:00 07/14/18 10:22 Protonix PO 40 mg QDAY DIANE Administration Polyethylene Glycol 17 gm 07/02/18 10:00 07/14/18 10:24 Miralax 3350 PO 17 gm QDAY DIANE Administration Sevelamer Carbonate 1,600 mg 06/29/18 12:00 07/14/18 08:20 Renvela PO 1,600 mg TIDWM DIANE Administration Nutrition/Malnutrition Assess - Dietary Evaluation Nutrition/Malnutrition Findings: Nutrition Notes Start: 07/05/18 14:49 Freq: Status: Active Protocol: Document 07/09/18 14:17 EB (Rec: 07/09/18 14:32 [id number]) Co-Sign 07/09/18 14:17 RM Nutrition Notes Initial or Follow up Reassessment Current Diagnosis Diabetes Other Pertinent Diagnosis ESRD on PD, Possible sepsis Current Diet Renal,Cardiac with Nepro daily Labs/Tests Reviewed Pertinent Medications Reviewed Height 5 ft 6 in Weight 102.5 kg [place] Body Weight (kg) 59.09 BMI 36.4 Weight change and time frame Wt increase likely due to fluid change Subjective/Other Information Pt received PD earlier today. Pt resting in bed and states she ate about 50% of her breakfast and meals yesterday. She had not touched her lunch that was delivered this afternoon. Pt reports fair appetite, but says she really enjoys and drinks her ONS daily. Percent of energy/protein needs met: 86%/100% Burn Absent Trauma Absent Current % PO Fair (50-74%) #1 Nutrition Diagnosis Inadequate oral intake As Evidenced by Signs and Symptoms pt meeting 86% and 100% of edis and pro needs, respectively Diagnosis Progress(for reassessment Resolved documentation) Is patient on ventilator? No Is Patient Ambulatory and/or Out of Bed Yes REE-([place] or-ambulatory/OOB) [ 2036.775 [id number]] Kcal/Kg value to use for calculation 17 Approximate Energy Requirements Using 1743 kcal/Kg Calculation Used for Recommendations Kcal/kg Additional Notes Protein Needs: 92-100g (1.2-1. 3g/kg, 77kg adjBW) Fluid Needs: 1 ml/kcal Nutrition Intervention Change Diet Order: Continue current Add Supplement/Snack (indicate name/kcal Nepro 1 daily /protein ) Provides kCal: 425 Provides Protein (gm) 19 Goal #1 Continue to meet at least 75% of calorie and protein needs via PO and ONS intakes Anticipated Discharge Needs: Renal diet Follow-Up By: 07/16/18 Additional Comments F/u: PO and ONS intakes
--- NOTE | 2018-07-14 11:12 | Progress Note ---
Assessment and Plan Impression * End-stage renal disease * Hypotension * Diabetes * Abdominal pain * Hypokalemia * Extrusion of external cuff off her PD catheter * Malfunctioning PD catheter * Peritonitis Recommendations * Patient's blood pressure is noted to be low today. * She'll give her a fluid bolus. Change CAPD regimen to all 1.5% * PD catheter is functioning better after flushing with heparin * KUB shows catheter tube to be in the left lower quadrant area * Continue heparin with PD fluid * Patient has been having good bowel movements. Change lactulose to when necessary only * PD fluid cell count noted to be elevated at 6350 . Follow-up culture results . Patient is currently on broad-spectrum antibiotic coverage * She has extrusion of the external cuff of the PD catheter. Will need to follow up with her PD surgeon. May be done as an outpatient * Hold Procrit for now as her hemoglobin is >12 Subjective Date of service: 07/14/18 Principal diagnosis: dvt Interval history: Patient continues to have some abdominal pain. Denies any nausea or vomiting. Denies any shortness of breath. Objective - Vital Signs Vital signs: Vital Signs - 12hr 07/14/18 07/14/18 07/14/18 02:13 02:31 07:38 Temperature 97.8 F 99.1 F Pulse Rate 94 H 96 H 110 H Respiratory 20 18 Rate Blood Pressure 86/56 Blood Pressure 95/58 [Left] O2 Sat by Pulse 95 94 94 Oximetry 07/14/18 10:45 Temperature Pulse Rate 105 H Respiratory Rate Blood Pressure 87/55 Blood Pressure [Left] O2 Sat by Pulse 100 Oximetry - General Appearance General appearance: well-developed, well-nourished, appears stated age EENT: PERRL, mucous membranes moist Neck: no JVD, no thyromegaly, no carotid bruit, supple Respiratory: Present: Clear to Ascultation Cardiology: regular, normal heart rate Gastrointestinal: normoactive bowel sounds, tenderness (mild diffuse tenderness) Integumentary: no rash, other (no edema) - Lab 07/14/18 04:15 07/14/18 04:15 Most recent lab results Calcium 8.5 mg/dL (8.4-10.2) 07/14/18 04:15 Medications & Allergies - Medications Allergies/Adverse Reactions: Allergies No Known Allergies Allergy (Verified 08/18/14 08:52) Home Medications: Home Medications Medication Instructions Recorded Confirmed Last Taken Type Aspirin [Aspirin BABY CHEW TAB] 81 mg PO QDAY #30 08/19/14 06/29/18 06/23/15 Rx Calcitriol [Rocaltrol] 0.5 mcg PO QDAY 06/29/18 06/29/18 Unknown History Potassium Chloride [Klor-Con M20] 20 meq PO DAILY 06/29/18 06/29/18 Unknown History Sevelamer Carbonate 1,600 mg PO TID 06/29/18 06/29/18 Unknown History Simvastatin [Zocor] 20 mg PO DAILY 06/29/18 06/29/18 Unknown History Active Medications: Generic Name Dose Route Start Last Admin Trade Name Freq PRN Reason Stop Dose Admin Apixaban 5 mg 07/04/18 16:00 07/14/18 10:24 Eliquis PO 5 mg Q12HR DIANE Administration Protocol Aspirin 81 mg 06/29/18 13:00 07/14/18 10:24 Baby Aspirin PO 81 mg QDAY DIANE Administration Atorvastatin Calcium 40 mg 06/29/18 22:00 07/13/18 21:39 Lipitor PO 40 mg QHS DIANE Administration Calcitriol 0.5 mcg 06/29/18 13:00 07/14/18 10:24 Rocaltrol PO 0.5 mcg QDAY DIANE Administration Peritoneal Dialysis Solution 2 0 ml 07/12/18 18:00 07/14/18 10:26 ,000 ml/ Heparin Sodium ( IP 2,000 ml Porcine) 1,000 unit 0600,1000,1400,1800 DIANE Administration Docusate Sodium 100 mg 07/02/18 10:00 07/14/18 10:23 Colace PO 100 mg BID DIANE Administration Folic Acid 1 mg 07/10/18 14:00 07/14/18 10:24 Folvite PO 1 mg QDAY DIANE Administration Cefepime HCl 1 gm in 100 mls @ 200 mls/hr 07/10/18 20:00 07/13/18 17:31 Maxipime/Ns 1 Gm/100 Ml IV 200 mls/hr QPM DIANE Administration Protocol Sodium Chloride 500 mls @ 999 mls/hr 07/14/18 11:00 Nacl 0.9% 500 Ml IV 07/14/18 11:30 ONCE ONE Insulin Human Lispro 0 unit 06/29/18 22:00 07/14/18 08:20 Humalog SUB-Q 3 unit ACHS DIANE Administration Protocol Lactulose 20 gm 07/13/18 12:00 Cephulac PO TID PRN Constipation Lidocaine 1 each 06/29/18 13:00 07/14/18 10:24 Lidoderm 5% TD 1 each QDAY DIANE Administration Midodrine 10 mg 07/01/18 14:00 07/14/18 08:20 Proamatine PO 10 mg TID DIANE Administration Morphine Sulfate 2 mg 07/08/18 14:51 07/13/18 17:45 Morphine IV 2 mg Q4H PRN Administration Pain, Moderate (4-6) Pantoprazole Sodium 40 mg 07/08/18 10:00 07/14/18 10:22 Protonix PO 40 mg QDAY DIANE Administration Polyethylene Glycol 17 gm 07/02/18 10:00 07/14/18 10:24 Miralax 3350 PO 17 gm QDAY DIANE Administration Sevelamer Carbonate 1,600 mg 06/29/18 12:00 07/14/18 08:20 Renvela PO 1,600 mg TIDWM DIANE Administration
[2018-07-14] MEDS ORDERED: DIANEAL LOW CALCIUM W/1.5% DEXTROSE IP SCH (12:00)
[2018-07-14] MEDS: [UNRECOGNIZED DRUG - OTHER] IP SCH ×2 (12:56→18:53)
[2018-07-14] MEDS: MAXIPIME/NS 1 GM/100 ML 1 GM/100 ML BAG IV SCH (17:26)
--- NOTE | 2018-07-14 17:48 | Progress Note ---
Assessment and Plan Patient Receiving Peritoneal dialysis.Patient sleeping.Patient is on room air.O2 saturation 95% . Patient Obese. Having excessive day time sleepiness. Recommend sleep study as out patient.Venous doppler studies reported extensive left leg DVT.Patient is on Apixaban. - Patient Problems (1) NSTEMI (non-ST elevated myocardial infarction) Current Visit: Yes Status: Acute Plan to address problem: Management as per cardiology. (2) HTN (hypertension) Current Visit: Yes Status: Acute Plan to address problem: Management as per primary care. (3) Diabetes Current Visit: Yes Status: Chronic Plan to address problem: Mangement as per primary care. (4) ESRD on peritoneal dialysis Current Visit: Yes Status: Acute Plan to address problem: Management as per Nephrology. Patient is on peritoneal dialysis. (5) Elevated d-dimer Current Visit: Yes Status: Acute Plan to address problem: Perfusion lung scan reported low probability for pulmonary emboli. Venous doppler studies of legs reported extensive left leg DVT. (6) Obesity (BMI 30.0-34.9) Current Visit: Yes Status: Acute Plan to address problem: Diet and exercise to loose weight. Sleep study as out patient. (7) DVT (deep venous thrombosis) Current Visit: Yes Status: Acute Qualifiers: DVT location: lower extremity Chronicity: acute Plan to address problem: Patients venous doppler studies reported extensive left leg DVT. Patient is on Apixaban. Subjective Date of service: 07/14/18 Principal diagnosis: dvt Interval history: Patient Receiving Peritoneal dialysis.Patient sleeping.Patient is on room air.O2 saturation 95% . Patient Obese. Having excessive day time sleepiness. Recommend sleep study as out patient.Venous doppler studies reported extensive left leg DVT.Patient is on Apixaban. Objective Vital Signs - 12hr 07/14/18 07/14/18 07/14/18 07:38 10:45 13:30 Temperature 99.1 F Pulse Rate 110 H 105 H 104 H Respiratory 18 Rate Blood Pressure 86/56 87/55 81/43 O2 Sat by Pulse 94 100 98 Oximetry 07/14/18 17:16 Temperature Pulse Rate 98 H Respiratory Rate Blood Pressure 90/51 O2 Sat by Pulse 96 Oximetry Constitutional: no acute distress, asleep Eyes: non-icteric ENT: oropharynx moist, other (mallampati 3) Neck: supple, no lymphadenopathy, no JVD, other (large neck circumference) Effort: normal Ascultation: Bilateral: diminished breath sounds, rhonchi (scant in bases) Percussion: Bilateral: not dull Cardiovascular: regular rate and rhythm, other (No R/M) Gastrointestinal: normoactive bowel sounds, soft, non-distended, other (No HSM, PD cathetr, clean dry site, mild lower abdominal tenderness, no rebound) Integumentary: normal Extremities: no cyanosis, no edema, pulses normal, no ischemia or petechiae Neurologic: normal mental status, non-focal exam (grossly), pupils equal and round, motor strength normal and Psychiatric: mood appropriate, affect normal CBC and BMP: 07/15/18 06:42 07/15/18 06:42 ABG, PT/INR, D-dimer: PT/INR, D-dimer PT 13.6 Sec. (12.2-14.9) 07/03/18 12:39 INR 0.98 (0.87-1.13) 07/03/18 12:39 D-Dimer > 53370 ng/mlDDU (0-234) H 06/28/18 22:26 Abnormal lab findings: Abnormal Labs 06/28/18 06/28/18 06/28/18 10:38 20:54 20:54 WBC 24.8 H RBC Hgb 16.6 H Hct 50.3 H MCV 107 H MCH 35 H RDW 15.6 H Plt Count Lymph % (Auto) Lymph # Baso # Seg Neutrophils % Seg Neuts % (Manual) 95.0 H Lymphocytes % (Manual) 3.0 L Nucleated RBC % Seg Neutrophils # Seg Neutrophils # Man 23.6 H Lymphocytes # (Manual) 0.7 L Monocytes # (Manual) D-Dimer Heparin Anti-Xa Level Sodium 131 L Potassium Chloride 89.6 L Carbon Dioxide 19 L BUN 29 H Creatinine 9.3 H Glucose 174 H POC Glucose Lactic Acid Calcium ALT 5 L Troponin T 0.073 H C-Reactive Protein Albumin 3.2 L Triglycerides 194 H HDL Cholesterol 68 H Vitamin B12 Folate 06/28/18 06/29/18 06/29/18 22:26 12:18 13:30 WBC RBC Hgb Hct MCV MCH RDW Plt Count Lymph % (Auto) Lymph # Baso # Seg Neutrophils % Seg Neuts % (Manual) Lymphocytes % (Manual) Nucleated RBC % Seg Neutrophils # Seg Neutrophils # Man Lymphocytes # (Manual) Monocytes # (Manual) D-Dimer > 63364 H Heparin Anti-Xa Level Sodium Potassium Chloride Carbon Dioxide BUN Creatinine Glucose POC Glucose 168 H Lactic Acid Calcium ALT Troponin T 0.073 H C-Reactive Protein Albumin Triglycerides HDL Cholesterol Vitamin B12 Folate 06/29/18 06/29/18 06/29/18 13:30 14:11 16:36 WBC 19.8 H RBC Hgb 14.7 H Hct 45.4 H MCV 108 H MCH 35 H RDW 15.9 H Plt Count Lymph % (Auto) Lymph # Baso # Seg Neutrophils % Seg Neuts % (Manual) Lymphocytes % (Manual) Nucleated RBC % Seg Neutrophils # Seg Neutrophils # Man Lymphocytes # (Manual) Monocytes # (Manual) D-Dimer Heparin Anti-Xa Level Sodium 133 L Potassium Chloride 91.7 L Carbon Dioxide 20 L BUN 33 H Creatinine 9.9 H Glucose 196 H POC Glucose 165 H Lactic Acid Calcium ALT Troponin T C-Reactive Protein Albumin Triglycerides HDL Cholesterol Vitamin B12 Folate 06/29/18 06/29/18 06/30/18 20:37 22:01 04:49 WBC 14.8 H RBC Hgb Hct MCV 106 H MCH 35 H RDW 15.5 H Plt Count Lymph % (Auto) Lymph # Baso # Seg Neutrophils % Seg Neuts % (Manual) 90.0 H Lymphocytes % (Manual) 5.0 L Nucleated RBC % Seg Neutrophils # Seg Neutrophils # Man 13.3 H Lymphocytes # (Manual) 0.7 L Monocytes # (Manual) D-Dimer Heparin Anti-Xa Level Sodium Potassium Chloride Carbon Dioxide BUN Creatinine Glucose POC Glucose 202 H Lactic Acid Calcium ALT Troponin T 0.077 H C-Reactive Protein Albumin Triglycerides HDL Cholesterol Vitamin B12 Folate 06/30/18 06/30/18 06/30/18 04:49 08:27 12:17 WBC RBC Hgb Hct MCV MCH RDW Plt Count Lymph % (Auto) Lymph # Baso # Seg Neutrophils % Seg Neuts % (Manual) Lymphocytes % (Manual) Nucleated RBC % Seg Neutrophils # Seg Neutrophils # Man Lymphocytes # (Manual) Monocytes # (Manual) D-Dimer Heparin Anti-Xa Level Sodium 134 L Potassium 3.5 L Chloride 94.7 L Carbon Dioxide BUN 30 H Creatinine 8.8 H Glucose 182 H POC Glucose 170 H 145 H Lactic Acid Calcium 7.9 L ALT Troponin T C-Reactive Protein Albumin Triglycerides HDL Cholesterol Vitamin B12 Folate 06/30/18 06/30/18 07/01/18 16:44 22:06 07:21 WBC 11.8 H RBC 3.32 L Hgb Hct MCV 105 H MCH 35 H RDW 15.5 H Plt Count 125 L Lymph % (Auto) Lymph # Baso # Seg Neutrophils % Seg Neuts % (Manual) Lymphocytes % (Manual) Nucleated RBC % Seg Neutrophils # Seg Neutrophils # Man Lymphocytes # (Manual) Monocytes # (Manual) D-Dimer Heparin Anti-Xa Level Sodium Potassium Chloride Carbon Dioxide BUN Creatinine Glucose POC Glucose 155 H 174 H Lactic Acid Calcium ALT Troponin T C-Reactive Protein Albumin Triglycerides HDL Cholesterol Vitamin B12 Folate 07/01/18 07/01/18 07/01/18 07:21 08:22 11:38 WBC RBC Hgb Hct MCV MCH RDW Plt Count Lymph % (Auto) Lymph # Baso # Seg Neutrophils % Seg Neuts % (Manual) Lymphocytes % (Manual) Nucleated RBC % Seg Neutrophils # Seg Neutrophils # Man Lymphocytes # (Manual) Monocytes # (Manual) D-Dimer Heparin Anti-Xa Level Sodium 134 L Potassium Chloride 95.9 L Carbon Dioxide BUN 31 H Creatinine 8.4 H Glucose 151 H POC Glucose 117 H 166 H Lactic Acid Calcium 7.8 L ALT Troponin T C-Reactive Protein Albumin Triglycerides HDL Cholesterol Vitamin B12 Folate 07/01/18 07/01/18 07/01/18 13:32 13:32 16:27 WBC RBC Hgb Hct MCV MCH RDW Plt Count Lymph % (Auto) Lymph # Baso # Seg Neutrophils % Seg Neuts % (Manual) Lymphocytes % (Manual) Nucleated RBC % Seg Neutrophils # Seg Neutrophils # Man Lymphocytes # (Manual) Monocytes # (Manual) D-Dimer Heparin Anti-Xa Level Sodium Potassium Chloride Carbon Dioxide BUN Creatinine Glucose POC Glucose 149 H Lactic Acid 2.20 H* Calcium ALT Troponin T C-Reactive Protein 7.40 H Albumin Triglycerides HDL Cholesterol Vitamin B12 Folate 07/01/18 07/01/18 07/02/18 19:35 21:36 05:22 WBC RBC Hgb Hct MCV MCH RDW Plt Count Lymph % (Auto) Lymph # Baso # Seg Neutrophils % Seg Neuts % (Manual) Lymphocytes % (Manual) Nucleated RBC % Seg Neutrophils # Seg Neutrophils # Man Lymphocytes # (Manual) Monocytes # (Manual) D-Dimer Heparin Anti-Xa Level Sodium Potassium Chloride Carbon Dioxide BUN Creatinine Glucose POC Glucose 129 H Lactic Acid 2.60 H* 2.20 H* Calcium ALT Troponin T C-Reactive Protein Albumin Triglycerides HDL Cholesterol Vitamin B12 Folate 07/02/18 07/02/18 07/02/18 05:22 05:22 07:11 WBC 12.6 H RBC 3.51 L Hgb Hct MCV 105 H MCH 35 H RDW Plt Count 132 L Lymph % (Auto) Lymph # Baso # Seg Neutrophils % Seg Neuts % (Manual) 92.0 H Lymphocytes % (Manual) 2.0 L Nucleated RBC % Seg Neutrophils # Seg Neutrophils # Man 11.6 H Lymphocytes # (Manual) 0.3 L Monocytes # (Manual) D-Dimer Heparin Anti-Xa Level Sodium 131 L Potassium 3.3 L Chloride 93.1 L Carbon Dioxide BUN 31 H Creatinine 7.5 H Glucose 228 H POC Glucose 215 H Lactic Acid Calcium 7.7 L ALT Troponin T C-Reactive Protein Albumin Triglycerides HDL Cholesterol Vitamin B12 Folate 07/02/18 07/02/18 07/03/18 15:35 21:56 10:56 WBC RBC Hgb Hct MCV MCH RDW Plt Count Lymph % (Auto) Lymph # Baso # Seg Neutrophils % Seg Neuts % (Manual) Lymphocytes % (Manual) Nucleated RBC % Seg Neutrophils # Seg Neutrophils # Man Lymphocytes # (Manual) Monocytes # (Manual) D-Dimer Heparin Anti-Xa Level Sodium 130 L Potassium Chloride 91.6 L Carbon Dioxide BUN 33 H Creatinine 7.8 H Glucose POC Glucose 123 H 135 H Lactic Acid Calcium 7.7 L ALT Troponin T C-Reactive Protein Albumin Triglycerides HDL Cholesterol Vitamin B12 Folate 07/03/18 07/03/18 07/03/18 11:00 21:03 22:06 WBC 11.9 H RBC 3.59 L Hgb Hct MCV 103 H MCH 35 H RDW Plt Count Lymph % (Auto) Lymph # Baso # Seg Neutrophils % Seg Neuts % (Manual) 94.0 H Lymphocytes % (Manual) 5.0 L Nucleated RBC % Seg Neutrophils # Seg Neutrophils # Man 11.2 H Lymphocytes # (Manual) 0.6 L Monocytes # (Manual) D-Dimer Heparin Anti-Xa Level 0.28 L Sodium Potassium Chloride Carbon Dioxide BUN Creatinine Glucose POC Glucose 177 H Lactic Acid Calcium ALT Troponin T C-Reactive Protein Albumin Triglycerides HDL Cholesterol Vitamin B12 Folate 07/04/18 07/04/18 07/04/18 01:08 05:22 05:22 WBC 13.1 H RBC Hgb Hct MCV 104 H MCH 35 H RDW Plt Count 139 L Lymph % (Auto) 5.0 L Lymph # 0.7 L Baso # 0.2 H Seg Neutrophils % 87.7 H Seg Neuts % (Manual) Lymphocytes % (Manual) Nucleated RBC % Seg Neutrophils # 11.5 H Seg Neutrophils # Man Lymphocytes # (Manual) Monocytes # (Manual) D-Dimer Heparin Anti-Xa Level Sodium 132 L Potassium 3.1 L Chloride 92.4 L Carbon Dioxide BUN 30 H Creatinine 7.4 H Glucose 113 H POC Glucose 106 H Lactic Acid Calcium 7.8 L ALT Troponin T C-Reactive Protein Albumin Triglycerides HDL Cholesterol Vitamin B12 Folate 07/04/18 07/04/18 07/04/18 05:22 12:15 14:59 WBC RBC Hgb Hct MCV MCH RDW Plt Count Lymph % (Auto) Lymph # Baso # Seg Neutrophils % Seg Neuts % (Manual) Lymphocytes % (Manual) Nucleated RBC % Seg Neutrophils # Seg Neutrophils # Man Lymphocytes # (Manual) Monocytes # (Manual) D-Dimer Heparin Anti-Xa Level 1.31 H 1.70 H Sodium Potassium Chloride Carbon Dioxide BUN Creatinine Glucose POC Glucose 200 H Lactic Acid Calcium ALT Troponin T C-Reactive Protein Albumin Triglycerides HDL Cholesterol Vitamin B12 Folate 07/04/18 07/05/18 07/05/18 20:56 06:17 06:17 WBC RBC 3.51 L Hgb Hct MCV 104 H MCH 35 H RDW Plt Count Lymph % (Auto) 7.8 L Lymph # 0.7 L Baso # Seg Neutrophils % 85.2 H Seg Neuts % (Manual) Lymphocytes % (Manual) Nucleated RBC % Seg Neutrophils # Seg Neutrophils # Man Lymphocytes # (Manual) Monocytes # (Manual) D-Dimer Heparin Anti-Xa Level Sodium 132 L Potassium 3.1 L Chloride 92.7 L Carbon Dioxide BUN 29 H Creatinine 7.3 H Glucose 115 H POC Glucose 133 H Lactic Acid Calcium 7.9 L ALT Troponin T C-Reactive Protein Albumin Triglycerides HDL Cholesterol Vitamin B12 Folate 07/05/18 07/06/18 07/06/18 23:47 06:53 06:53 WBC RBC 3.47 L Hgb Hct MCV 104 H MCH 35 H RDW Plt Count Lymph % (Auto) Lymph # Baso # Seg Neutrophils % Seg Neuts % (Manual) 93.0 H Lymphocytes % (Manual) 2.0 L Nucleated RBC % Seg Neutrophils # Seg Neutrophils # Man 8.6 H Lymphocytes # (Manual) 0.2 L Monocytes # (Manual) D-Dimer Heparin Anti-Xa Level Sodium 132 L Potassium 3.2 L Chloride 94.5 L Carbon Dioxide BUN 32 H Creatinine 8.7 H Glucose 106 H POC Glucose 112 H Lactic Acid Calcium 7.8 L ALT Troponin T C-Reactive Protein Albumin Triglycerides HDL Cholesterol Vitamin B12 Folate 07/06/18 07/06/18 07/07/18 16:23 22:56 07:56 WBC RBC Hgb Hct MCV MCH RDW Plt Count Lymph % (Auto) Lymph # Baso # Seg Neutrophils % Seg Neuts % (Manual) Lymphocytes % (Manual) Nucleated RBC % Seg Neutrophils # Seg Neutrophils # Man Lymphocytes # (Manual) Monocytes # (Manual) D-Dimer Heparin Anti-Xa Level Sodium Potassium Chloride Carbon Dioxide BUN Creatinine Glucose POC Glucose 126 H 139 H 181 H Lactic Acid Calcium ALT Troponin T C-Reactive Protein Albumin Triglycerides HDL Cholesterol Vitamin B12 Folate 07/07/18 07/07/18 07/07/18 09:35 09:35 12:52 WBC RBC Hgb Hct MCV 105 H MCH 35 H RDW Plt Count Lymph % (Auto) 6.3 L Lymph # 0.6 L Baso # Seg Neutrophils % 87.9 H Seg Neuts % (Manual) Lymphocytes % (Manual) Nucleated RBC % Seg Neutrophils # 8.2 H Seg Neutrophils # Man Lymphocytes # (Manual) Monocytes # (Manual) D-Dimer Heparin Anti-Xa Level Sodium 130 L Potassium 3.4 L Chloride 90.3 L Carbon Dioxide BUN 29 H Creatinine 8.0 H Glucose 201 H POC Glucose 161 H Lactic Acid Calcium 8.0 L ALT Troponin T C-Reactive Protein Albumin Triglycerides HDL Cholesterol Vitamin B12 Folate 07/07/18 07/08/18 07/08/18 21:56 05:19 05:19 WBC 12.7 H RBC Hgb Hct MCV 104 H MCH 35 H RDW Plt Count Lymph % (Auto) Lymph # Baso # Seg Neutrophils % Seg Neuts % (Manual) 92.0 H Lymphocytes % (Manual) 5.0 L Nucleated RBC % 1.0 H Seg Neutrophils # Seg Neutrophils # Man 11.7 H Lymphocytes # (Manual) 0.6 L Monocytes # (Manual) D-Dimer Heparin Anti-Xa Level Sodium 134 L Potassium 3.4 L Chloride 93.6 L Carbon Dioxide BUN 30 H Creatinine 8.0 H Glucose 184 H POC Glucose 162 H Lactic Acid Calcium ALT Troponin T C-Reactive Protein Albumin Triglycerides HDL Cholesterol Vitamin B12 Folate 07/08/18 07/08/18 07/08/18 05:19 05:19 08:25 WBC RBC Hgb Hct MCV MCH RDW Plt Count Lymph % (Auto) Lymph # Baso # Seg Neutrophils % Seg Neuts % (Manual) Lymphocytes % (Manual) Nucleated RBC % Seg Neutrophils # Seg Neutrophils # Man Lymphocytes # (Manual) Monocytes # (Manual) D-Dimer Heparin Anti-Xa Level Sodium Potassium Chloride Carbon Dioxide BUN Creatinine Glucose POC Glucose 200 H Lactic Acid Calcium ALT Troponin T C-Reactive Protein Albumin Triglycerides HDL Cholesterol Vitamin B12 1416 H Folate 2.39 L 07/08/18 07/08/18 07/08/18 11:48 16:14 21:53 WBC RBC Hgb Hct MCV MCH RDW Plt Count Lymph % (Auto) Lymph # Baso # Seg Neutrophils % Seg Neuts % (Manual) Lymphocytes % (Manual) Nucleated RBC % Seg Neutrophils # Seg Neutrophils # Man Lymphocytes # (Manual) Monocytes # (Manual) D-Dimer Heparin Anti-Xa Level Sodium Potassium Chloride Carbon Dioxide BUN Creatinine Glucose POC Glucose 202 H 176 H 219 H Lactic Acid Calcium ALT Troponin T C-Reactive Protein Albumin Triglycerides HDL Cholesterol Vitamin B12 Folate 07/09/18 07/09/18 07/09/18 07:50 09:51 09:51 WBC 15.8 H RBC Hgb Hct 43.4 H MCV 105 H MCH 34 H RDW Plt Count Lymph % (Auto) Lymph # Baso # Seg Neutrophils % Seg Neuts % (Manual) 94.0 H Lymphocytes % (Manual) 3.0 L Nucleated RBC % 1.0 H Seg Neutrophils # Seg Neutrophils # Man 14.9 H Lymphocytes # (Manual) 0.5 L Monocytes # (Manual) D-Dimer Heparin Anti-Xa Level Sodium 135 L Potassium Chloride 95.5 L Carbon Dioxide BUN 29 H Creatinine 8.4 H Glucose 204 H POC Glucose 163 H Lactic Acid Calcium ALT Troponin T C-Reactive Protein Albumin Triglycerides HDL Cholesterol Vitamin B12 Folate 07/09/18 07/09/18 07/09/18 11:50 18:47 22:16 WBC RBC Hgb Hct MCV MCH RDW Plt Count Lymph % (Auto) Lymph # Baso # Seg Neutrophils % Seg Neuts % (Manual) Lymphocytes % (Manual) Nucleated RBC % Seg Neutrophils # Seg Neutrophils # Man Lymphocytes # (Manual) Monocytes # (Manual) D-Dimer Heparin Anti-Xa Level Sodium Potassium Chloride Carbon Dioxide BUN Creatinine Glucose POC Glucose 156 H 176 H 189 H Lactic Acid Calcium ALT Troponin T C-Reactive Protein Albumin Triglycerides HDL Cholesterol Vitamin B12 Folate 07/10/18 07/10/18 07/10/18 05:35 08:22 08:52 WBC 17.9 H RBC Hgb Hct MCV 105 H MCH 34 H RDW Plt Count Lymph % (Auto) Lymph # Baso # Seg Neutrophils % Seg Neuts % (Manual) 87.0 H Lymphocytes % (Manual) 6.0 L Nucleated RBC % Seg Neutrophils # Seg Neutrophils # Man 15.6 H Lymphocytes # (Manual) 1.1 L Monocytes # (Manual) 1.1 H D-Dimer Heparin Anti-Xa Level Sodium 135 L Potassium Chloride 92.8 L Carbon Dioxide BUN 27 H Creatinine 7.5 H Glucose 175 H POC Glucose 129 H Lactic Acid Calcium ALT Troponin T C-Reactive Protein Albumin Triglycerides HDL Cholesterol Vitamin B12 Folate 07/10/18 07/10/18 07/10/18 11:47 18:22 21:32 WBC RBC Hgb Hct MCV MCH RDW Plt Count Lymph % (Auto) Lymph # Baso # Seg Neutrophils % Seg Neuts % (Manual) Lymphocytes % (Manual) Nucleated RBC % Seg Neutrophils # Seg Neutrophils # Man Lymphocytes # (Manual) Monocytes # (Manual) D-Dimer Heparin Anti-Xa Level Sodium Potassium Chloride Carbon Dioxide BUN Creatinine Glucose POC Glucose 189 H 211 H 306 H Lactic Acid Calcium ALT Troponin T C-Reactive Protein Albumin Triglycerides HDL Cholesterol Vitamin B12 Folate 07/11/18 07/11/18 07/11/18 04:10 07:36 11:49 WBC 19.4 H RBC Hgb Hct MCV 107 H MCH 35 H RDW 15.3 H Plt Count Lymph % (Auto) Lymph # Baso # Seg Neutrophils % Seg Neuts % (Manual) 89.0 H Lymphocytes % (Manual) 4.0 L Nucleated RBC % Seg Neutrophils # Seg Neutrophils # Man 17.3 H Lymphocytes # (Manual) 0.8 L Monocytes # (Manual) D-Dimer Heparin Anti-Xa Level Sodium Potassium Chloride Carbon Dioxide BUN Creatinine Glucose POC Glucose 113 H 123 H Lactic Acid Calcium ALT Troponin T C-Reactive Protein Albumin Triglycerides HDL Cholesterol Vitamin B12 Folate 07/11/18 07/11/1807/12/19 17:35 23:28 00:48 WBC 17.0 H RBC Hgb Hct MCV 106 H MCH 35 H RDW Plt Count Lymph % (Auto) Lymph # Baso # Seg Neutrophils % Seg Neuts % (Manual) 92.0 H Lymphocytes % (Manual) 3.0 L Nucleated RBC % Seg Neutrophils # Seg Neutrophils # Man 15.6 H Lymphocytes # (Manual) 0.5 L Monocytes # (Manual) 0.9 H D-Dimer Heparin Anti-Xa Level Sodium Potassium Chloride Carbon Dioxide BUN Creatinine Glucose POC Glucose 207 H 188 H Lactic Acid Calcium ALT Troponin T C-Reactive Protein Albumin Triglycerides HDL Cholesterol Vitamin B12 Folate 07/12/18 07/12/18 07/12/18 04:05 09:21 12:05 WBC RBC Hgb Hct MCV MCH RDW Plt Count Lymph % (Auto) Lymph # Baso # Seg Neutrophils % Seg Neuts % (Manual) Lymphocytes % (Manual) Nucleated RBC % Seg Neutrophils # Seg Neutrophils # Man Lymphocytes # (Manual) Monocytes # (Manual) D-Dimer Heparin Anti-Xa Level Sodium Potassium Chloride Carbon Dioxide BUN Creatinine Glucose POC Glucose 147 H 125 H 113 H Lactic Acid Calcium ALT Troponin T C-Reactive Protein Albumin Triglycerides HDL Cholesterol Vitamin B12 Folate 07/12/18 07/13/18 07/13/18 22:25 05:28 05:28 WBC 15.5 H RBC 3.62 L Hgb Hct MCV 105 H MCH 34 H RDW Plt Count Lymph % (Auto) Lymph # Baso # Seg Neutrophils % Seg Neuts % (Manual) 99.0 H Lymphocytes % (Manual) 1.0 L Nucleated RBC % Seg Neutrophils # Seg Neutrophils # Man 15.3 H Lymphocytes # (Manual) 0.2 L Monocytes # (Manual) D-Dimer Heparin Anti-Xa Level Sodium 133 L Potassium Chloride 95.0 L Carbon Dioxide BUN 43 H Creatinine 9.1 H Glucose 124 H POC Glucose 162 H Lactic Acid Calcium 8.0 L ALT Troponin T C-Reactive Protein Albumin Triglycerides HDL Cholesterol Vitamin B12 Folate 07/13/18 07/13/18 07/13/18 07:59 11:40 16:41 WBC RBC Hgb Hct MCV MCH RDW Plt Count Lymph % (Auto) Lymph # Baso # Seg Neutrophils % Seg Neuts % (Manual) Lymphocytes % (Manual) Nucleated RBC % Seg Neutrophils # Seg Neutrophils # Man Lymphocytes # (Manual) Monocytes # (Manual) D-Dimer Heparin Anti-Xa Level Sodium Potassium Chloride Carbon Dioxide BUN Creatinine Glucose POC Glucose 191 H 195 H 204 H Lactic Acid Calcium ALT Troponin T C-Reactive Protein Albumin Triglycerides HDL Cholesterol Vitamin B12 Folate 07/13/18 07/14/18 07/14/18 22:38 04:15 04:15 WBC 13.1 H RBC Hgb Hct MCV 107 H MCH 34 H RDW Plt Count Lymph % (Auto) Lymph # Baso # Seg Neutrophils % Seg Neuts % (Manual) 89.0 H Lymphocytes % (Manual) 6.0 L Nucleated RBC % Seg Neutrophils # Seg Neutrophils # Man 11.7 H Lymphocytes # (Manual) 0.8 L Monocytes # (Manual) D-Dimer Heparin Anti-Xa Level Sodium 136 L Potassium Chloride 95.3 L Carbon Dioxide BUN 40 H Creatinine 8.1 H Glucose POC Glucose 190 H Lactic Acid Calcium ALT Troponin T C-Reactive Protein Albumin Triglycerides HDL Cholesterol Vitamin B12 Folate 07/14/18 07/14/18 07/14/18 07:57 12:18 17:24 WBC RBC Hgb Hct MCV MCH RDW Plt Count Lymph % (Auto) Lymph # Baso # Seg Neutrophils % Seg Neuts % (Manual) Lymphocytes % (Manual) Nucleated RBC % Seg Neutrophils # Seg Neutrophils # Man Lymphocytes # (Manual) Monocytes # (Manual) D-Dimer Heparin Anti-Xa Level Sodium Potassium Chloride Carbon Dioxide BUN Creatinine Glucose POC Glucose 205 H 180 H 249 H Lactic Acid Calcium ALT Troponin T C-Reactive Protein Albumin Triglycerides HDL Cholesterol Vitamin B12 Folate Allied health notes reviewed: nursing
[2018-07-14] MEDS ORDERED: NACL 0.9% 250ML 250 ML IV ONE (20:00)
[2018-07-15] MEDS: [UNRECOGNIZED DRUG - OTHER] IP SCH ×4 (00:20→21:40)
[2018-07-15 07:05] LABS: Basophils % (Auto) 0.1 % (0.0-1.8); Eosinophils # (Auto) 0.1 K/mm3 (0.0-0.4); Eosinophils % (Auto) 0.5 % (0.0-4.3); Hematocrit 39.9 % (30.3-42.9); Lymphocytes # (Auto) 0.8 K/mm3 (1.2-5.4); Lymphocytes % (Auto) 6.4 % (13.4-35.0); Mean Corpuscular HGB Conc 33 % (30-34); Mean Corpuscular Volume 105 fl (79-97); Monocytes # (Auto) 0.4 K/mm3 (0.0-0.8); Monocytes % (Auto) 3.4 % (0.0-7.3); Platelet Count 255 K/mm3 (140-440); Red Blood Count 3.79 M/mm3 (3.65-5.03); Red Cell Distribution Width 15.1 % (13.2-15.2)
[2018-07-15 07:28] LABS: Calcium 8.1 mg/dL (8.4-10.2)
--- NOTE | 2018-07-15 07:52 | Hem/Onc Progress Note ---
Assessment and Plan 1. Left leg deep venous thrombosis. The patient was on heparin drip. The patient is on peritoneal dialysis. The dose of Eliquis or any direct thrombin inhibitors or other anticoagulation monitoring may become challenging. I will discuss with other team members regarding the dosage. The question arises if a lower dose of Eliquis is sufficient. 2. MCV elevated. We will investigate. 3. Elevated D-dimers. 4. History of renal failure, on peritoneal dialysis. 5. History of hypertension. She was hypotensive at admission. 6. History of diabetes. 7. I will follow the patient during inpatient stay and then in the clinic setting for anticoagulation management. Option of Coumadin is also available but that would involve monitoring. 07/05 - d/w dr cartagena - pharmacy to help reg NOAC - ? eliquis 2.5 q 12? 07/06 - pharmacy has placed pt on 5 mg q 12 07/08 - pt on eliquis - d/w dr noyola - Placement pending gets PD 07/09 - pt had fever on eliquis for left leg dvt. h/o abdo discomfort - on and off 07/10/2018 DVT - on eliquis c/o abdo discomfort - d/w dr andrade - US abdo elevated MCV - low folate - replace ESRD on PD h/o fever 07/11 US abdo done - report pending Leukocytosis - seen by ID on eliquis 07/13/2018 pt says PD catheter not working US abdo done ID - for Abx eliquis for DVT 07/14 DVT - eliquis WBC high - on Abx MCV elevated - low folate - on Rx on Pd 07/15 dvt - on eliquis h/o anemia - on procrit - folic acid on PD for CKD OP follow up from hem perspective - Patient Problems (1) DVT (deep venous thrombosis) Current Visit: Yes Status: Acute Qualifiers: DVT location: lower extremity Chronicity: acute Subjective Date of service: 07/15/18 Principal diagnosis: dvt Interval history: abdo pain better Objective - Constitutional Vitals: Last Vital Signs Temp 98.6 F 07/15/18 02:19 Pulse 100 H 07/15/18 02:19 Resp 20 07/15/18 02:19 BP 106/70 07/15/18 02:19 Pulse Ox 95 07/15/18 02:19 Pain Intensity (0-10): denies any pain General appearance: no acute distress Performance status: 3-limited selfcare - EENT Eyes: EOM intact ENT: clear oral mucosa Lymph node exam: negative cervical - Neck Neck: normal ROM - Respiratory Respiratory effort: Positive: normal Respiratory: bilateral: CTA - Cardiovascular Heart Sounds: Present: S1 & S2 Extremity abnormal: edema - Gastrointestinal General gastrointestinal: Present: soft Rectal Exam: deferred - Genitourinary Female genitourinary: Present: deferred - Integumentary Integumentary: warm - Musculoskeletal Musculoskeletal: generalized weakness - Neurologic Neurologic: moves all extremities - Labs Lab Results: Laboratory Results - last 24 hr 07/14/18 07/14/18 07/14/18 04:15 07:57 12:18 WBC RBC Hgb Hct MCV MCH MCHC RDW Plt Count Lymph % (Auto) [place] % (Auto) Eos % (Auto) Baso % (Auto) Lymph # [place] # Eos # Baso # Add Manual Diff Complete Total Counted 100 Seg Neutrophils % Seg Neuts % (Manual) 89.0 H Band Neutrophils % 2.0 Lymphocytes % (Manual) 6.0 L Reactive Lymphs % (Man) 0 Monocytes % (Manual) 3.0 Eosinophils % (Manual) 0 Basophils % (Manual) 0 Metamyelocytes % 0 Myelocytes % 0 Promyelocytes % 0 Blast Cells % 0 Nucleated RBC % Not Reportable Seg Neutrophils # Seg Neutrophils # Man 11.7 H Band Neutrophils # 0.3 Lymphocytes # (Manual) 0.8 L Abs React Lymphs (Man) 0.0 Monocytes # (Manual) 0.4 Eosinophils # (Manual) 0.0 Basophils # (Manual) 0.0 Metamyelocytes # 0.0 Myelocytes # 0.0 Promyelocytes # 0.0 Blast Cells # 0.0 WBC Morphology Not Reportable Hypersegmented Neuts Not Reportable Hyposegmented Neuts Not Reportable Hypogranular Neuts Not Reportable Smudge Cells Not Reportable Toxic Granulation Not Reportable Toxic Vacuolation Not Reportable Dohle Bodies Not Reportable Pelger-Huet Anomaly Not Reportable Nomi Rods Not Reportable Platelet Estimate Consistent w auto Clumped Platelets Not Reportable Plt Clumps, EDTA Not Reportable Large Platelets Not Reportable Giant Platelets Not Reportable Platelet Satelliting Not Reportable Plt Morphology Comment Not Reportable RBC Morphology Not Reportable Dimorphic RBCs Not Reportable Polychromasia Not Reportable Hypochromasia Not Reportable Poikilocytosis 1+ Anisocytosis 1+ Microcytosis Not Reportable Macrocytosis 1+ Spherocytes Not Reportable Pappenheimer Bodies Not Reportable Sickle Cells Not Reportable Target Cells Few Tear Drop Cells Not Reportable Ovalocytes Few Helmet Cells Not Reportable [place] Bodies Not Reportable Arma Rings Not Reportable [place] Cells Not Reportable Bite Cells Not Reportable Crenated Cell Not Reportable Elliptocytes Not Reportable Acanthocytes (Spur) Not Reportable Rouleaux Not Reportable Hemoglobin C Crystals Not Reportable Schistocytes Not Reportable Malaria parasites Not Reportable Navneet Bodies Not Reportable Hem Pathologist Commnt No Sodium Potassium Chloride Carbon Dioxide Anion Gap BUN Creatinine Estimated GFR BUN/Creatinine Ratio Glucose POC Glucose 205 H 180 H Calcium 07/14/18 07/14/18 07/15/18 17:24 22:19 06:42 WBC 11.9 H RBC 3.79 Hgb 13.0 Hct 39.9 MCV 105 H MCH 34 H MCHC 33 RDW 15.1 Plt Count 255 Lymph % (Auto) 6.4 L [place] % (Auto) 3.4 Eos % (Auto) 0.5 Baso % (Auto) 0.1 Lymph # 0.8 L [place] # 0.4 Eos # 0.1 Baso # 0.0 Add Manual Diff Total Counted Seg Neutrophils % 89.6 H Seg Neuts % (Manual) Band Neutrophils % Lymphocytes % (Manual) Reactive Lymphs % (Man) Monocytes % (Manual) Eosinophils % (Manual) Basophils % (Manual) Metamyelocytes % Myelocytes % Promyelocytes % Blast Cells % Nucleated RBC % Seg Neutrophils # 10.6 H Seg Neutrophils # Man Band Neutrophils # Lymphocytes # (Manual) Abs React Lymphs (Man) Monocytes # (Manual) Eosinophils # (Manual) Basophils # (Manual) Metamyelocytes # Myelocytes # Promyelocytes # Blast Cells # WBC Morphology Hypersegmented Neuts Hyposegmented Neuts Hypogranular Neuts Smudge Cells Toxic Granulation Toxic Vacuolation Dohle Bodies Pelger-Huet Anomaly Nomi Rods Platelet Estimate Clumped Platelets Plt Clumps, EDTA Large Platelets Giant Platelets Platelet Satelliting Plt Morphology Comment RBC Morphology Dimorphic RBCs Polychromasia Hypochromasia Poikilocytosis Anisocytosis Microcytosis Macrocytosis Spherocytes Pappenheimer Bodies Sickle Cells Target Cells Tear Drop Cells Ovalocytes Helmet Cells [place] Bodies Arma Rings [place] Cells Bite Cells Crenated Cell Elliptocytes Acanthocytes (Spur) Rouleaux Hemoglobin C Crystals Schistocytes Malaria parasites Navneet Bodies Hem Pathologist Commnt Sodium Potassium Chloride Carbon Dioxide Anion Gap BUN Creatinine Estimated GFR BUN/Creatinine Ratio Glucose POC Glucose 249 H 156 H Calcium 07/15/18 06:42 WBC RBC Hgb Hct MCV MCH MCHC RDW Plt Count Lymph % (Auto) [place] % (Auto) Eos % (Auto) Baso % (Auto) Lymph # [place] # Eos # Baso # Add Manual Diff Total Counted Seg Neutrophils % Seg Neuts % (Manual) Band Neutrophils % Lymphocytes % (Manual) Reactive Lymphs % (Man) Monocytes % (Manual) Eosinophils % (Manual) Basophils % (Manual) Metamyelocytes % Myelocytes % Promyelocytes % Blast Cells % Nucleated RBC % Seg Neutrophils # Seg Neutrophils # Man Band Neutrophils # Lymphocytes # (Manual) Abs React Lymphs (Man) Monocytes # (Manual) Eosinophils # (Manual) Basophils # (Manual) Metamyelocytes # Myelocytes # Promyelocytes # Blast Cells # WBC Morphology Hypersegmented Neuts Hyposegmented Neuts Hypogranular Neuts Smudge Cells Toxic Granulation Toxic Vacuolation Dohle Bodies Pelger-Huet Anomaly Nomi Rods Platelet Estimate Clumped Platelets Plt Clumps, EDTA Large Platelets Giant Platelets Platelet Satelliting Plt Morphology Comment RBC Morphology Dimorphic RBCs Polychromasia Hypochromasia Poikilocytosis Anisocytosis Microcytosis Macrocytosis Spherocytes Pappenheimer Bodies Sickle Cells Target Cells Tear Drop Cells Ovalocytes Helmet Cells [place]hart-[place] Bodies Arma Rings [place] Cells Bite Cells Crenated Cell Elliptocytes Acanthocytes (Spur) Rouleaux Hemoglobin C Crystals Schistocytes Malaria parasites Navneet Bodies Hem Pathologist Commnt Sodium 131 L Potassium 3.5 L Chloride 94.3 L Carbon Dioxide 23 Anion Gap 17 BUN 36 H Creatinine 7.0 H Estimated GFR 7 BUN/Creatinine Ratio 5 Glucose 166 H POC Glucose Calcium 8.1 L Medications & Allergies - Medications Allergies/Adverse Reactions: Allergies No Known Allergies Allergy (Verified 08/18/14 08:52) Home Medications: Home Medications Medication Instructions Recorded Confirmed Last Taken Type Aspirin [Aspirin BABY CHEW TAB] 81 mg PO QDAY #30 08/19/14 06/29/18 06/23/15 Rx Calcitriol [Rocaltrol] 0.5 mcg PO QDAY 06/29/18 06/29/18 Unknown History Potassium Chloride [Klor-Con M20] 20 meq PO DAILY 06/29/18 06/29/18 Unknown History Sevelamer Carbonate 1,600 mg PO TID 06/29/18 06/29/18 Unknown History Simvastatin [Zocor] 20 mg PO DAILY 06/29/18 06/29/18 Unknown History Active Medications: Generic Name Dose Route Start Last Admin Trade Name Freq PRN Reason Stop Dose Admin Apixaban 5 mg 07/04/18 16:00 07/14/18 21:31 Eliquis PO 5 mg Q12HR DIANE Administration Protocol Aspirin 81 mg 06/29/18 13:00 07/14/18 10:24 Baby Aspirin PO 81 mg QDAY DIANE Administration Atorvastatin Calcium 40 mg 06/29/18 22:00 07/14/18 21:29 Lipitor PO 40 mg QHS DIANE Administration Calcitriol 0.5 mcg 06/29/18 13:00 07/14/18 10:24 Rocaltrol PO 0.5 mcg QDAY DIANE Administration Peritoneal Dialysis Solution 2 0 ml 07/14/18 12:00 07/15/18 05:40 ,000 ml/ Heparin Sodium ( IP 2,000 ml Porcine) 1,000 unit Q6HR DIANE Administration Docusate Sodium 100 mg 07/02/18 10:00 07/14/18 21:30 Colace PO 100 mg BID DIANE Administration Folic Acid 1 mg 07/10/18 14:00 07/14/18 10:24 Folvite PO 1 mg QDAY DIANE Administration Cefepime HCl 1 gm in 100 mls @ 200 mls/hr 07/10/18 20:00 07/14/18 17:26 Maxipime/Ns 1 Gm/100 Ml IV 200 mls/hr QPM DIANE Administration Protocol Insulin Human Lispro 0 unit 06/29/18 22:00 07/14/18 22:15 Humalog SUB-Q Not Given ACHS DIANE Protocol Lactulose 20 gm 07/13/18 12:00 Cephulac PO TID PRN Constipation Lidocaine 1 each 06/29/18 13:00 07/14/18 10:24 Lidoderm 5% TD 1 each QDAY DIANE Administration Midodrine 10 mg 07/01/18 14:00 07/14/18 21:29 Proamatine PO 10 mg TID DIANE Administration Morphine Sulfate 2 mg 07/08/18 14:51 07/13/18 17:45 Morphine IV 2 mg Q4H PRN Administration Pain, Moderate (4-6) Pantoprazole Sodium 40 mg 07/08/18 10:00 07/14/18 10:22 Protonix PO 40 mg QDAY DIANE Administration Polyethylene Glycol 17 gm 07/02/18 10:00 07/14/18 10:24 Miralax 3350 PO 17 gm QDAY DIANE Administration Sevelamer Carbonate 1,600 mg 06/29/18 12:00 07/14/18 17:48 Renvela PO Not Given TIDWM DIANE
[2018-07-15] MEDS: HumaLOG SUB-Q SCH ×4 (08:30→23:36)
[2018-07-15] MEDS: PROAMATINE PO SCH ×3 (08:31→21:46)
[2018-07-15] MEDS: RENVELA PO SCH ×3 (08:31→17:40)
--- NOTE | 2018-07-15 09:25 | Progress Note ---
Assessment and Plan Assessment and plan: Sepsis not present on admission - PD associated peritonitis. - PD fluid cell count noted to be elevated at 6350 . Blood cultures were no growth to date. PD culture with no growth 48 hrs. Patient is currently on broad-spectrum antibiotic coverage - Abdominal US reveals moderate-sized umbilical hernia present containing adipose tissue. No herniated loops of bowel are seen. - Continue to monitor leukocytosis, improved. PD catheter malfunction Improved after administration of heparin. Chronic Hypotension - cont midodrine for now, ? Exacerbated with Sepsis associated hypotension. IV fluid bolus 500 normal saline if okay with nephrology HLD, on statin ESRD on PD, Nephrology following Diabetes type 2, diet controlled, cont SSRI Elevated troponin/NSTEMI type 2 - Cardiology following - Stress test negative DVT left lower ext. Cont. Eliquis. Debility PT evaluation done patient unable to stand, and she lives alone. discussed with case management Patient for LTAC versus [facility] History Interval history: Patient is a 67-year-old female past medical history of end-stage renal disease on peritoneal dialysis, hypertension hyperlipidemia, diabetes mellitus type 2 on diet control, presented to ER by EMS after having a fall around 9 AM in the [facility] but she had no loss of consciousness or hit her head. She was sitting on bed and accidentally "slid to ground". She was unable to get up from the bed as she was feeling very weak in her legs. Her family called emergency services to break into her house around 5pm. She was then brought to the ER for further evaluation and management . She noted to have highly elevated d-dimer, elevated white count. In the ED, patient was hypotensive w/ WBC 24.8. CTA chest was unremarkable. V/Q scan was also low prob PE. She denied fever, chills, PD fluid has been clear. She was placed on Levophed, given IV Rocephin and admitted. she was diagnosed with SIRS, hypotension. She improved on Levophed was weaned off. She had swelling of the legs on both ultrasound confirmed a DVT of left lower extremity for which she has been . However patient has failure to thrive, debility, she feels very weak and unable to stand. I discussed with case management she started working on acute rehabilitation placement. The patient developed fever and leukocytosis on 07/08/18. Fever resolved but leukocytosis w orsened. Antibiotics restarted and blood cultures thus far negative. ID consulted. Nurse reports PD catheter malfunctioning and not draining well previously but now improved after flushing with heparin. Patient with intermittent hypotension the past couple of days. Resolved with IV fluid bolus of 500 normal saline yesterday. Patient also complained of abdominal pain but improved. Hospitalist Physical - Constitutional Vitals: Temp Pulse Resp BP Pulse Ox 98.8 F 103 H 19 86/54 95 07/15/18 07:35 07/15/18 07:35 07/15/18 07:35 07/15/18 07:35 07/15/18 07:35 General appearance: Present: no acute distress, obese - EENT Eyes: Present: PERRL, EOM intact ENT: hearing intact, clear oral mucosa, dentition normal - Neck Neck: Present: supple, normal ROM - Respiratory Respiratory effort: normal Respiratory: bilateral: CTA - Cardiovascular Rhythm: regular Heart Sounds: Present: S1 & S2. Absent: gallop, rub - Extremities Extremities: no ischemia, No edema, Full ROM - Abdominal General gastrointestinal: soft, non-tender, non-distended, normal bowel sounds - Integumentary Integumentary: Present: clear, warm, dry - Neurologic Neurologic: CNII-XII intact, moves all extremities Results - Labs CBC & Chem 7: 07/15/18 06:42 07/15/18 06:42 Labs: Laboratory Last Values WBC 11.9 K/mm3 (4.5-11.0) H 07/15/18 06:42 RBC 3.79 M/mm3 (3.65-5.03) 07/15/18 06:42 Hgb 13.0 gm/dl (10.1-14.3) 07/15/18 06:42 Hct 39.9 % (30.3-42.9) 07/15/18 06:42 MCV 105 fl (79-97) H 07/15/18 06:42 MCH 34 pg (28-32) H 07/15/18 06:42 MCHC 33 % (30-34) 07/15/18 06:42 RDW 15.1 % (13.2-15.2) 07/15/18 06:42 Plt Count 255 K/mm3 (140-440) 07/15/18 06:42 Lymph % (Auto) 6.4 % (13.4-35.0) L 07/15/18 06:42 [place] % (Auto) 3.4 % (0.0-7.3) 07/15/18 06:42 Eos % (Auto) 0.5 % (0.0-4.3) 07/15/18 06:42 Baso % (Auto) 0.1 % (0.0-1.8) 07/15/18 06:42 Lymph # 0.8 K/mm3 (1.2-5.4) L 07/15/18 06:42 [place] # 0.4 K/mm3 (0.0-0.8) 07/15/18 06:42 Eos # 0.1 K/mm3 (0.0-0.4) 07/15/18 06:42 Baso # 0.0 K/mm3 (0.0-0.1) 07/15/18 06:42 Add Manual Diff Complete 07/14/18 04:15 Total Counted 100 07/14/18 04:15 Seg Neutrophils % 89.6 % (40.0-70.0) H 07/15/18 06:42 Seg Neuts % (Manual) 89.0 % (40.0-70.0) H 07/14/18 04:15 Band Neutrophils % 2.0 % 07/14/18 04:15 Lymphocytes % (Manual) 6.0 % (13.4-35.0) L 07/14/18 04:15 Reactive Lymphs % (Man) 0 % 07/14/18 04:15 Monocytes % (Manual) 3.0 % (0.0-7.3) 07/14/18 04:15 Eosinophils % (Manual) 0 % (0.0-4.3) 07/14/18 04:15 Basophils % (Manual) 0 % (0.0-1.8) 07/14/18 04:15 Metamyelocytes % 0 % 07/14/18 04:15 Myelocytes % 0 % 07/14/18 04:15 Promyelocytes % 0 % 07/14/18 04:15 Blast Cells % 0 % 07/14/18 04:15 Nucleated RBC % Not Reportable 07/14/18 04:15 Seg Neutrophils # 10.6 K/mm3 (1.8-7.7) H 07/15/18 06:42 Seg Neutrophils # Man 11.7 K/mm3 (1.8-7.7) H 07/14/18 04:15 Band Neutrophils # 0.3 K/mm3 07/14/18 04:15 Lymphocytes # (Manual) 0.8 K/mm3 (1.2-5.4) L 07/14/18 04:15 Abs React Lymphs (Man) 0.0 K/mm3 07/14/18 04:15 Monocytes # (Manual) 0.4 K/mm3 (0.0-0.8) 07/14/18 04:15 Eosinophils # (Manual) 0.0 K/mm3 (0.0-0.4) 07/14/18 04:15 Basophils # (Manual) 0.0 K/mm3 (0.0-0.1) 07/14/18 04:15 Metamyelocytes # 0.0 K/mm3 07/14/18 04:15 Myelocytes # 0.0 K/mm3 07/14/18 04:15 Promyelocytes # 0.0 K/mm3 07/14/18 04:15 Blast Cells # 0.0 K/mm3 07/14/18 04:15 WBC Morphology Not Reportable 07/14/18 04:15 Hypersegmented Neuts Not Reportable 07/14/18 04:15 Hyposegmented Neuts Not Reportable 07/14/18 04:15 Hypogranular Neuts Not Reportable 07/14/18 04:15 Smudge Cells Not Reportable 07/14/18 04:15 Toxic Granulation Not Reportable 07/14/18 04:15 Toxic Vacuolation Not Reportable 07/14/18 04:15 Dohle Bodies Not Reportable 07/14/18 04:15 Pelger-Huet Anomaly Not Reportable 07/14/18 04:15 Nomi Rods Not Reportable 07/14/18 04:15 Platelet Estimate Consistent w auto 07/14/18 04:15 Clumped Platelets Not Reportable 07/14/18 04:15 Plt Clumps, EDTA Not Reportable 07/14/18 04:15 Large Platelets Not Reportable 07/14/18 04:15 Giant Platelets Not Reportable 07/14/18 04:15 Platelet Satelliting Not Reportable 07/14/18 04:15 Plt Morphology Comment Not Reportable 07/14/18 04:15 RBC Morphology Not Reportable 07/14/18 04:15 Dimorphic RBCs Not Reportable 07/14/18 04:15 Polychromasia Not Reportable 07/14/18 04:15 Hypochromasia Not Reportable 07/14/18 04:15 Poikilocytosis 1+ 07/14/18 04:15 Anisocytosis 1+ 07/14/18 04:15 Microcytosis Not Reportable 07/14/18 04:15 Macrocytosis 1+ 07/14/18 04:15 Spherocytes Not Reportable 07/14/18 04:15 Pappenheimer Bodies Not Reportable 07/14/18 04:15 Sickle Cells Not Reportable 07/14/18 04:15 Target Cells Few 07/14/18 04:15 Tear Drop Cells Not Reportable 07/14/18 04:15 Ovalocytes Few 07/14/18 04:15 Helmet Cells Not Reportable 07/14/18 04:15 Barnhart-[place] Bodies Not Reportable 07/14/18 04:15 [place] Rings Not Reportable 07/14/18 04:15 [place] Cells Not Reportable 07/14/18 04:15 Bite Cells Not Reportable 07/14/18 04:15 Crenated Cell Not Reportable 07/14/18 04:15 Elliptocytes Not Reportable 07/14/18 04:15 Acanthocytes (Spur) Not Reportable 07/14/18 04:15 Rouleaux Not Reportable 07/14/18 04:15 Hemoglobin C Crystals Not Reportable 07/14/18 04:15 Schistocytes Not Reportable 07/14/18 04:15 Malaria parasites Not Reportable 07/14/18 04:15 Navneet Bodies Not Reportable 07/14/18 04:15 Hem Pathologist Commnt No 07/14/18 04:15 PT 13.6 Sec. (12.2-14.9) 07/03/18 12:39 INR 0.98 (0.87-1.13) 07/03/18 12:39 APTT 34.1 Sec. (24.2-36.6) 07/03/18 12:39 D-Dimer > 32352 ng/mlDDU (0-234) H 06/28/18 22:26 Heparin Anti-Xa Level 1.70 U.I./ml (0.3-0.7) H 07/04/18 14:59 Sodium 131 mmol/L (137-145) L 07/15/18 06:42 Potassium 3.5 mmol/L (3.6-5.0) L 07/15/18 06:42 Chloride 94.3 mmol/L (98-107) L 07/15/18 06:42 Carbon Dioxide 23 mmol/L (22-30) 07/15/18 06:42 Anion Gap 17 mmol/L 07/15/18 06:42 BUN 36 mg/dL (7-17) H 07/15/18 06:42 Creatinine 7.0 mg/dL (0.7-1.2) H 07/15/18 06:42 Estimated GFR 7 ml/min 07/15/18 06:42 BUN/Creatinine Ratio 5 % 07/15/18 06:42 Glucose 166 mg/dL (65-100) H 07/15/18 06:42 POC Glucose 187 (70-105) H 07/15/18 08:12 Lactic Acid 2.20 mmol/L (0.7-2.0) H* 07/02/18 05:22 Calcium 8.1 mg/dL (8.4-10.2) L 07/15/18 06:42 Total Bilirubin 0.40 mg/dL (0.1-1.2) 06/28/18 20:54 AST 25 units/L (5-40) 06/28/18 20:54 ALT 5 units/L (7-56) L 06/28/18 20:54 Alkaline Phosphatase 88 units/L (35-129) 06/28/18 20:54 Total Creatine Kinase 118 units/L (30-135) 06/29/18 20:37 Troponin T 0.077 ng/mL (0.00-0.029) H 06/29/18 20:37 C-Reactive Protein 7.40 mg/dL (0.00-1.30) H 07/01/18 13:32 Total Protein 7.4 g/dL (6.3-8.2) 06/28/18 20:54 Albumin 3.2 g/dL (3.9-5) L 06/28/18 20:54 Albumin/Globulin Ratio 0.8 % 06/28/18 20:54 Triglycerides 194 mg/dL (2-149) H 06/28/18 10:38 Cholesterol 167 mg/dL (50-199) 06/28/18 10:38 LDL Cholesterol Direct 61 mg/dL (50-130) 06/28/18 10:38 HDL Cholesterol 68 mg/dL (40-59) H 06/28/18 10:38 Cholesterol/HDL Ratio 2.45 % 06/28/18 10:38 Vitamin B12 1416 pg/mL (211-911) H 07/08/18 05:19 Folate 2.39 ng/mL (7.3-26.0) L 07/08/18 05:19 Fluid Type Dialysate 07/12/18 11:30 Fluid Color Straw 07/12/18 11:30 Fluid Appearance Cloudy 07/12/18 11:30 Fluid WBC 6350 /mm3 07/12/18 11:30 Fluid RBC 3 /mm3 07/12/18 11:30 Fluid Seg Neutrophils 96.0 % 07/12/18 11:30 Fluid Lymphocytes 4.0 % 07/12/18 11:30 Fluid Reactive Lymphs 0 % 07/12/18 11:30 Fluid Monocytes 0 % 07/12/18 11:30 Fluid Eosinophils 0 % 07/12/18 11:30 Fluid Basophils 0 % 07/12/18 11:30 Random Vancomycin 26.0 ug/mL (0-40.0) 07/14/18 04:15 Active Medications - Current Medications Current Medications: Generic Name Dose Route Start Last Admin Trade Name Freq PRN Reason Stop Dose Admin Apixaban 5 mg 07/04/18 16:00 07/14/18 21:31 Eliquis PO 5 mg Q12HR DIANE Administration Protocol Aspirin 81 mg 06/29/18 13:00 07/14/18 10:24 Baby Aspirin PO 81 mg QDAY DIANE Administration Atorvastatin Calcium 40 mg 06/29/18 22:00 07/14/18 21:29 Lipitor PO 40 mg QHS DIANE Administration Calcitriol 0.5 mcg 06/29/18 13:00 07/14/18 10:24 Rocaltrol PO 0.5 mcg QDAY DIANE Administration Peritoneal Dialysis Solution 2 0 ml 07/14/18 12:00 07/15/18 05:40 ,000 ml/ Heparin Sodium ( IP 2,000 ml Porcine) 1,000 unit Q6HR DIANE Administration Docusate Sodium 100 mg 07/02/18 10:00 07/14/18 21:30 Colace PO 100 mg BID DIANE Administration Folic Acid 1 mg 07/10/18 14:00 07/14/18 10:24 Folvite PO 1 mg QDAY DIANE Administration Cefepime HCl 1 gm in 100 mls @ 200 mls/hr 07/10/18 20:00 07/14/18 17:26 Maxipime/Ns 1 Gm/100 Ml IV 200 mls/hr QPM DIANE Administration Protocol Insulin Human Lispro 0 unit 06/29/18 22:00 07/14/18 22:15 Humalog SUB-Q Not Given ACHS DIANE Protocol Lactulose 20 gm 07/13/18 12:00 Cephulac PO TID PRN Constipation Lidocaine 1 each 06/29/18 13:00 07/14/18 10:24 Lidoderm 5% TD 1 each QDAY DIANE Administration Midodrine 10 mg 07/01/18 14:00 07/15/18 08:31 Proamatine PO 10 mg TID DIANE Administration Morphine Sulfate 2 mg 07/08/18 14:51 07/13/18 17:45 Morphine IV 2 mg Q4H PRN Administration Pain, Moderate (4-6) Pantoprazole Sodium 40 mg 07/08/18 10:00 07/14/18 10:22 Protonix PO 40 mg QDAY DIANE Administration Polyethylene Glycol 17 gm 07/02/18 10:00 07/14/18 10:24 Miralax 3350 PO 17 gm QDAY DIANE Administration Sevelamer Carbonate 1,600 mg 06/29/18 12:00 07/15/18 08:31 Renvela PO 1,600 mg TIDWM DIANE Administration Nutrition/Malnutrition Assess - Dietary Evaluation Nutrition/Malnutrition Findings: Nutrition Notes Start: 07/05/18 14:49 Freq: Status: Active Protocol: Document 07/09/18 14:17 EB (Rec: 07/09/18 14:32 EB [id number]) Co-Sign 07/09/18 14:17 RM Nutrition Notes Initial or Follow up Reassessment Current Diagnosis Diabetes Other Pertinent Diagnosis ESRD on PD, Possible sepsis Current Diet Renal,Cardiac with Nepro daily Labs/Tests Reviewed Pertinent Medications Reviewed Height 5 ft 6 in Weight 102.5 kg [place] Body Weight (kg) 59.09 BMI 36.4 Weight change and time frame Wt increase likely due to fluid change Subjective/Other Information Pt received PD earlier today. Pt resting in bed and states she ate about 50% of her breakfast and meals yesterday. She had not touched her lunch that was delivered this afternoon. Pt reports fair appetite, but says she really enjoys and drinks her ONS daily. Percent of energy/protein needs met: 86%/100% Burn Absent Trauma Absent Current % PO Fair (50-74%) #1 Nutrition Diagnosis Inadequate oral intake As Evidenced by Signs and Symptoms pt meeting 86% and 100% of edis and pro needs, respectively Diagnosis Progress(for reassessment Resolved documentation) Is patient on ventilator? No Is Patient Ambulatory and/or Out of Bed Yes REE-(Watts-St. Jeor-ambulatory/OOB) [ 2035. [id number]] Kcal/Kg value to use for calculation 17 Approximate Energy Requirements Using 1743 kcal/Kg Calculation Used for Recommendations Kcal/kg Additional Notes Protein Needs: 92-100g (1.2-1. 3g/kg, 77kg adjBW) Fluid Needs: 1 ml/kcal Nutrition Intervention Change Diet Order: Continue current Add Supplement/Snack (indicate name/kcal Nepro 1 daily /protein ) Provides kCal: 425 Provides Protein (gm) 19 Goal #1 Continue to meet at least 75% of calorie and protein needs via PO and ONS intakes Anticipated Discharge Needs: Renal diet Follow-Up By: 07/16/18 Additional Comments F/u: PO and ONS intakes
--- NOTE | 2018-07-15 09:36 | Progress Note ---
Assessment and Plan Cultures: 06/29/2018 Blood culture: No growth 07/01/2018 peritoneal dialysate culture: No growth 07/08/2018 blood culture: No growth at 48 hours 07/10/2018 peritoneal fluid culture: many PMN's, no growth 07/12/2018 peritoneal fluid culture: many PMN's, no growth A/P: 67-year-old female with ESRD on peritoneal dialysis, hypertension, hyperlipidemia, diabetes mellitus type 2 who presented to the emergency room and was hospitalized on 06/29/2018 with complaints of fall. Now with: 1) Sepsis: Resolved. secondary to PD associated peritonitis. Chest x-ray without pneumonia, blood cultures with no growth. Patient doesn't make any urine, UTI unlikely. No report of diarrhea. CT abdomen shows moderate-sized umbilical hernia present containing adipose tissue. No herniated loops of bowel are seen. 2 ESRD on PD: Renally dose antibiotics. 3) Left leg DVT: on anticoagulation. Recs: Continue cefepime and vancomycin renally adjusted, D6 Follow up PD fluid culture- Conversation with RN, will be collected today [facility] M: [phone] O:[phone] Subjective Date of service: 07/15/18 Principal diagnosis: dvt Interval history: Patient seen and examined. Awake , alert, laying in bed. Reports minor abdominal pain, but admits improvement since last week. Objective - Exam Narrative Exam: Constitutional: Alert, cooperative. No acute distress Head, Ears, Nose: Normocephalic, atraumatic. External ears, nose normal Eyes: Conjunctivae/corneas clear. No icterus. No ptosis. Neck: Supple, no meningeal signs Oral: mucosa moist, no thrush Cardiovascular: S1, S2 normal. Respiratory: Good air entry, clear to auscultation bilaterally GI: Soft, mildly tender,+ small drainage at PD site. Musculoskeletal: No pedal edema, no cyanosis. Skin: No rash or abscess Hem/Lymphatic: No palpable cervical or supraclavicular nodes. No lymphangitis Psych: Mood ok. Affect normal Neurological: Awake, alert, oriented. No gross abnormality - Constitutional Vitals: Vital Signs Temp Pulse Resp BP Pulse Ox 98.8 F 103 H 19 86/54 95 07/15/18 07:35 07/15/18 07:35 07/15/18 07:35 07/15/18 07:35 07/15/18 07:35 Temperature -Last 24 Hours Temperature 98.8 F Temperature 98.6 F Temperature 98.1 F - Labs CBC & Chem 7: 07/15/18 06:42 07/15/18 06:42 Labs: Abnormal lab results 07/14/18 07/14/18 07/14/18 Range/Units 04:15 12:18 17:24 WBC (4.5-11.0) K/mm3 MCV (79-97) fl MCH (28-32) pg Lymph % (Auto) (13.4-35.0) % Lymph # (1.2-5.4) K/mm3 Seg Neutrophils % (40.0-70.0) % Seg Neuts % (Manual) 89.0 H (40.0-70.0) % Lymphocytes % (Manual) 6.0 L (13.4-35.0) % Seg Neutrophils # (1.8-7.7) K/mm3 Seg Neutrophils # Man 11.7 H (1.8-7.7) K/mm3 Lymphocytes # (Manual) 0.8 L (1.2-5.4) K/mm3 Sodium (137-145) mmol/L Potassium (3.6-5.0) mmol/L Chloride (98-107) mmol/L BUN (7-17) mg/dL Creatinine (0.7-1.2) mg/dL Glucose (65-100) mg/dL POC Glucose 180 H 249 H (70-105) Calcium (8.4-10.2) mg/dL 07/14/18 07/15/18 07/15/18 Range/Units 22:19 06:42 06:42 WBC 11.9 H (4.5-11.0) K/mm3 MCV 105 H (79-97) fl MCH 34 H (28-32) pg Lymph % (Auto) 6.4 L (13.4-35.0) % Lymph # 0.8 L (1.2-5.4) K/mm3 Seg Neutrophils % 89.6 H (40.0-70.0) % Seg Neuts % (Manual) (40.0-70.0) % Lymphocytes % (Manual) (13.4-35.0) % Seg Neutrophils # 10.6 H (1.8-7.7) K/mm3 Seg Neutrophils # Man (1.8-7.7) K/mm3 Lymphocytes # (Manual) (1.2-5.4) K/mm3 Sodium 131 L (137-145) mmol/L Potassium 3.5 L (3.6-5.0) mmol/L Chloride 94.3 L (98-107) mmol/L BUN 36 H (7-17) mg/dL Creatinine 7.0 H (0.7-1.2) mg/dL Glucose 166 H (65-100) mg/dL POC Glucose 156 H (70-105) Calcium 8.1 L (8.4-10.2) mg/dL 07/15/18 Range/Units 08:12 WBC (4.5-11.0) K/mm3 MCV (79-97) fl MCH (28-32) pg Lymph % (Auto) (13.4-35.0) % Lymph # (1.2-5.4) K/mm3 Seg Neutrophils % (40.0-70.0) % Seg Neuts % (Manual) (40.0-70.0) % Lymphocytes % (Manual) (13.4-35.0) % Seg Neutrophils # (1.8-7.7) K/mm3 Seg Neutrophils # Man (1.8-7.7) K/mm3 Lymphocytes # (Manual) (1.2-5.4) K/mm3 Sodium (137-145) mmol/L Potassium (3.6-5.0) mmol/L Chloride (98-107) mmol/L BUN (7-17) mg/dL Creatinine (0.7-1.2) mg/dL Glucose (65-100) mg/dL POC Glucose 187 H (70-105) Calcium (8.4-10.2) mg/dL
[2018-07-15] MEDS: ELIQUIS PO SCH ×2 (10:27→21:47)
[2018-07-15] MEDS: ROCALTROL PO SCH (10:27)
[2018-07-15] MEDS: PROTONIX PO SCH (10:27)
[2018-07-15] MEDS: FOLVITE PO SCH (10:27)
[2018-07-15] MEDS: LIDODERM 5% TD SCH (10:28)
[2018-07-15] MEDS: BABY ASPIRIN PO SCH (10:28)
[2018-07-15] MEDS: MIRALAX 3350 PO SCH (10:28)
[2018-07-15] MEDS: COLACE PO SCH ×2 (10:28→21:47)
--- NOTE | 2018-07-15 12:42 | Progress Note ---
Assessment and Plan Impression * End-stage renal disease * Hypotension * autonomic dysfunction * Diabetes * Abdominal pain * Hypokalemia * Extrusion of external cuff off her PD catheter * Malfunctioning PD catheter * Peritonitis Recommendations * Patient's blood pressure is noted to be low today. * needs bp cath removal, she is unable to perform home dialysis at home * CAPD regimen to all 1.5% * Continue heparin with PD fluid * Patient has been having good bowel movements. Change lactulose to when necessary only * PD fluid cell count noted to be elevated at 6350 . Follow-up culture results . Patient is currently on broad-spectrum antibiotic coverage * She has extrusion of the external cuff of the PD catheter. need cath removal * Hold Procrit for now as her hemoglobin is >12 * consult vasc surgery for vasc access placement for hemodialysis * not stable for discharge Subjective Date of service: 07/15/18 Principal diagnosis: dvt Interval history: resting well in bed today Objective - Exam Narrative Exam: General appearance: well-developed, well-nourished, appears stated age EENT: PERRL, mucous membranes moist Neck: no JVD, no thyromegaly, no carotid bruit, supple Respiratory: Present: Clear to Ascultation Cardiology: regular, normal heart rate Gastrointestinal: normoactive bowel sounds, tenderness (mild diffuse tenderness) Integumentary: no rash, other (no edema) - Vital Signs Vital signs: Vital Signs - 12hr 07/15/18 07/15/18 07/15/18 01:40 02:19 07:35 Temperature 98.6 F 98.8 F Pulse Rate 98 H 100 H 103 H Respiratory 20 19 Rate Blood Pressure 106/70 86/54 [Left] O2 Sat by Pulse 97 95 95 Oximetry - Lab 07/15/18 06:42 07/15/18 06:42 Most recent lab results Calcium 8.1 mg/dL (8.4-10.2) L 07/15/18 06:42 Medications & Allergies - Medications Allergies/Adverse Reactions: Allergies No Known Allergies Allergy (Verified 08/18/14 08:52) Home Medications: Home Medications Medication Instructions Recorded Confirmed Last Taken Type Calcitriol [Rocaltrol] 0.5 mcg PO QDAY 06/29/18 06/29/18 Unknown History Simvastatin [Zocor] 20 mg PO DAILY 06/29/18 06/29/18 Unknown History Apixaban [Eliquis] 5 mg PO Q12HR tablet 07/15/18 Unknown Rx Aspirin [Aspirin BABY CHEW TAB] 81 mg PO QDAY tab.chew 07/15/18 Unknown Rx AtorvaSTATin [Lipitor] 40 mg PO QHS tablet 07/15/18 Unknown Rx Cefepime/Ns 1 gm/100 ml 1 gm IV Q24HR 21 Days piggyback 07/15/18 Unknown Rx [Maxipime/Ns 1 gm/100 ml] Docusate Sodium [Colace CAP] 100 mg PO BID capsule 07/15/18 Unknown Rx Fludrocortisone [Florinef] 0.1 mg PO QDAY tablet 07/15/18 Unknown Rx Folic Acid [Folvite] 1 mg PO QDAY tablet 07/15/18 Unknown Rx Lactulose [Cephulac] 20 gm PO TID PRN oral.liqd 07/15/18 Unknown Rx Lispro Insulin [Humalog] 0 unit SUB-Q ACHS units 07/15/18 Unknown Rx Midodrine [Proamatine] 10 mg PO TID tablet 07/15/18 Unknown Rx Pantoprazole [Protonix TAB] 40 mg PO QDAY tablet 07/15/18 Unknown Rx Polyethylene Glycol 3350 [Miralax 17 gm PO QDAY powd.pack 07/15/18 Unknown Rx 3350] Sevelamer Carbonate [Renvela] 1,600 mg PO TIDWM tablet 07/15/18 Unknown Rx Active Medications: Generic Name Dose Route Start Last Admin Trade Name Freq PRN Reason Stop Dose Admin Apixaban 5 mg 07/04/18 16:00 07/15/18 10:27 Eliquis PO 5 mg Q12HR DIANE Administration Protocol Aspirin 81 mg 06/29/18 13:00 07/15/18 10:28 Baby Aspirin PO 81 mg QDAY DIANE Administration Atorvastatin Calcium 40 mg 06/29/18 22:00 07/14/18 21:29 Lipitor PO 40 mg QHS DIANE Administration Calcitriol 0.5 mcg 06/29/18 13:00 07/15/18 10:27 Rocaltrol PO 0.5 mcg QDAY DIANE Administration Peritoneal Dialysis Solution 2 0 ml 07/14/18 12:00 07/15/18 11:38 ,000 ml/ Heparin Sodium ( IP 2,000 ml Porcine) 1,000 unit Q6HR DIANE Administration Docusate Sodium 100 mg 07/02/18 10:00 07/15/18 10:28 Colace PO 100 mg BID DIANE Administration Folic Acid 1 mg 07/10/18 14:00 07/15/18 10:27 Folvite PO 1 mg QDAY DIANE Administration Cefepime HCl 1 gm in 100 mls @ 200 mls/hr 07/10/18 20:00 07/14/18 17:26 Maxipime/Ns 1 Gm/100 Ml IV 200 mls/hr QPM DIANE Administration Protocol Insulin Human Lispro 0 unit 06/29/18 22:00 07/15/18 08:30 Humalog SUB-Q 2 unit ACHS DIANE Administration Protocol Lactulose 20 gm 07/13/18 12:00 Cephulac PO TID PRN Constipation Lidocaine 1 each 06/29/18 13:00 07/15/18 10:28 Lidoderm 5% TD 1 each QDAY DIANE Administration Midodrine 10 mg 07/01/18 14:00 07/15/18 08:31 Proamatine PO 10 mg TID DIANE Administration Morphine Sulfate 2 mg 07/08/18 14:51 07/13/18 17:45 Morphine IV 2 mg Q4H PRN Administration Pain, Moderate (4-6) Pantoprazole Sodium 40 mg 07/08/18 10:00 07/15/18 10:27 Protonix PO 40 mg QDAY DIANE Administration Polyethylene Glycol 17 gm 07/02/18 10:00 07/15/18 10:28 Miralax 3350 PO 17 gm QDAY DIANE Administration Sevelamer Carbonate 1,600 mg 06/29/18 12:00 07/15/18 08:31 Renvela PO 1,600 mg TIDWM DIANE Administration
[2018-07-15] MEDS: FLORINEF PO SCH (13:52)
[2018-07-15] MEDS: TYLENOL PO PRN (13:53)
--- NOTE | 2018-07-15 14:28 | Discharge Summary ---
Providers - Providers Date of Admission: 06/29/18 09:13 Date of discharge: 07/15/18 Attending physician: XIANG SMART 06/29/18 00:05 Consult to Physician [CONS] Stat Comment: Dr. Lucia spoke with Dr. Crawford @ [id number] Consulting Provider: FEROZ CRAWFORD Physician Instructions: Reason For Exam: esrd 06/29/18 07:56 Consult to Physician [CONS] Routine Comment: DR BARNETT NOTIFIED [id number] Consulting Provider: ELSY BARNETT Physician Instructions: Reason For Exam: IV access 06/29/18 09:15 Consult to Physician [CONS] Routine Comment: Consulting Provider: LAWANDA MCELROY Physician Instructions: Reason For Exam: septic shock 06/29/18 09:17 Consult to Physician [CONS] Routine Comment: dr crawford notified Consulting Provider: ISMA DAVILA Physician Instructions: Reason For Exam: esrd 07/03/18 11:02 Consult to Physician [CONS] Routine Comment: Consulting Provider: JENNA MOTLEY Physician Instructions: Reason For Exam: DVT lower ext 07/08/18 13:33 Consult to Dietitian/Nutrition [CONS] Routine Physician Instructions: Reason For Exam: Reason for Consult: Poor oral intake 07/10/18 09:16 Consult to Physician [CONS] Routine Comment: Consulting Provider: LORETA LANDEROS Physician Instructions: Reason For Exam: sirs Primary care physician: JENNYFER OLVERA Hospitalization Reason for admission: sepsis Condition: Stable Hospital course: The patient is a 67-year-old female with ESRD on peritoneal dialysis, hypertension, hyperlipidemia, diabetes mellitus type 2 who presented to the emergency room and was hospitalized on 06/29/2018 with complaints of fall. She was noted to be hypotensive with leukocytosis. Initial workup was negative for p neumonia. She was empirically treated with IV ceftriaxone for a few days and also needed levophed which was then weaned off. She was found to have a DVT of her left lower extremity. The patient was doing well and was planned for discharge to a nursing home facility however she developed a low-grade temperature on 07/08/2018 along with leukocytosis. She had blood cultures obtained. Due to worsening leukocytosis, infectious diseases was consulted. Patient reported a chronic cough which is unchanged. Denied any nausea or vomiting. Denied any loose watery stools. She Complained of new abdominal pain. She has been continued on peritoneal dialysis throughout hospitalization. The pt was noted to have Sepsis not present on admission with etiology from PD associated peritonitis. The pt had PD fluid cell count noted to be elevated at 6350. Blood cultures were completed and showed no growth to date. PD culture with no growth 48 hrs. Patient is currently on broad-spectrum antibiotic cover age as recommended by ID. Abdominal US revealed moderate-sized umbilical hernia present containing adipose tissue. No herniated loops of bowel are seen. Other issues during the hospital saty included c/o cp on admission in which a stress test was completed and found to be negative. PT evaluated the pt and recommended [facility] vs [facility]. [facility] accepted the pt and she will be transferred to [facility]. Dedicated D/C time 32 minutes Disposition: DC-01 TO HOME OR SELFCARE Time spent for discharge: 32 - Discharge Diagnoses (1) Sepsis Status: Acute (2) DVT (deep venous thrombosis) Status: Acute Qualifiers: DVT location: lower extremity Chronicity: acute (3) ESRD (end stage renal disease) Status: Acute (4) ESRD on peritoneal dialysis Status: Acute (5) HTN (hypertension) Status: Acute (6) Diabetes Status: Chronic (7) Hyperlipidemia Status: Chronic (8) Sepsis associated hypotension Status: Suspected Core Measure Documentation - Palliative Care Palliative Care/ Comfort Measures: Not Applicable - Core Measures Any of the following diagnoses?: none Exam - Constitutional Vitals: Temp Pulse Resp BP Pulse Ox 98.8 F 98 H 19 97/60 95 07/15/18 07:35 07/15/18 13:01 07/15/18 13:53 07/15/18 13:01 07/15/18 13:01 General appearance: Present: no acute distress, well-nourished - EENT Eyes: Present: PERRL ENT: hearing intact, clear oral mucosa - Neck Neck: Present: supple, normal ROM - Respiratory Respiratory effort: normal Respiratory: bilateral: CTA - Cardiovascular Heart Sounds: Present: S1 & S2. Absent: rub, click - Extremities Extremities: pulses symmetrical, No edema Peripheral Pulses: within normal limits - Abdominal General gastrointestinal: Present: soft, non-tender, non-distended, normal bowel sounds Female genitourinary: Present: normal - Integumentary Integumentary: Present: clear, warm, dry - Musculoskeletal Musculoskeletal: gait normal, strength equal bilaterally - Psychiatric Psychiatric: appropriate mood/affect, intact judgment & insight - Neurologic Neurologic: CNII-XII intact, moves all extremities Plan Activity: advance as tolerated Weight Bearing Status: Weight Bear as Tolerated Diet: per dietitian instruction Follow up with: JENNYFER OLVERA MD [Primary Care Provider] - 3-5 Days
[2018-07-15 17:37] LABS: Total Cells Counted 100 /mm3
--- NOTE | 2018-07-15 21:00 | Progress Note ---
Assessment and Plan Patient awake.Patient is on room air.O2 saturation 95% . Patient Obese. Having excessive day time sleepiness. Recommend sleep study as out patient.Venous doppler studies reported extensive left leg DVT.Patient is on Apixaban. - Patient Problems (1) NSTEMI (non-ST elevated myocardial infarction) Current Visit: Yes Status: Acute Plan to address problem: Management as per cardiology. (2) HTN (hypertension) Current Visit: Yes Status: Acute Plan to address problem: Management as per primary care. (3) Diabetes Current Visit: Yes Status: Chronic Plan to address problem: Mangement as per primary care. (4) ESRD on peritoneal dialysis Current Visit: Yes Status: Acute Plan to address problem: Management as per Nephrology. Patient is on peritoneal dialysis. (5) Elevated d-dimer Current Visit: Yes Status: Acute Plan to address problem: Perfusion lung scan reported low probability for pulmonary emboli. Venous doppler studies of legs reported extensive left leg DVT.Patient is on Apixaban (6) Obesity (BMI 30.0-34.9) Current Visit: Yes Status: Acute Plan to address problem: Diet and exercise to loose weight. Sleep study as out patient. (7) DVT (deep venous thrombosis) Current Visit: Yes Status: Acute Qualifiers: DVT location: lower extremity Chronicity: acute Plan to address problem: Patients venous doppler studies reported extensive left leg DVT. Patient is on Apixaban. Subjective Date of service: 07/15/18 Principal diagnosis: dvt Interval history: Patient awake.Patient is on room air.O2 saturation 95% . Patient Obese. Having excessive day time sleepiness. Recommend sleep study as out patient.Venous doppler studies reported extensive left leg DVT.Patient is on Apixaban. Objective Vital Signs - 12hr 07/15/18 07/15/18 07/15/18 13:01 13:30 13:53 Temperature 99.2 F Pulse Rate 98 H 68 Respiratory 19 19 Rate Blood Pressure 97/60 Blood Pressure 100/52 [Left] O2 Sat by Pulse 95 95 Oximetry 07/15/18 07/15/18 07/15/18 14:53 19:30 20:37 Temperature 98.8 F Pulse Rate 68 Respiratory 19 20 Rate Blood Pressure 110/63 Blood Pressure [Left] O2 Sat by Pulse 98 Oximetry Constitutional: no acute distress, asleep Eyes: non-icteric ENT: oropharynx moist, other (mallampati 3) Neck: supple, no lymphadenopathy, no JVD, other (large neck circumference) Effort: normal Ascultation: Bilateral: diminished breath sounds, rhonchi (scant in bases) Percussion: Bilateral: not dull Cardiovascular: regular rate and rhythm, other (No R/M) Gastrointestinal: normoactive bowel sounds, soft, non-distended, other (No HSM, PD cathetr, clean dry site, mild lower abdominal tenderness, no rebound) Integumentary: normal Extremities: no cyanosis, no edema, pulses normal, no ischemia or petechiae Neurologic: normal mental status, non-focal exam (grossly), pupils equal and round, motor strength normal and Psychiatric: mood appropriate, affect normal CBC and BMP: 07/15/18 06:42 07/15/18 06:42 ABG, PT/INR, D-dimer: PT/INR, D-dimer PT 13.6 Sec. (12.2-14.9) 07/03/18 12:39 INR 0.98 (0.87-1.13) 07/03/18 12:39 D-Dimer > 05078 ng/mlDDU (0-234) H 06/28/18 22:26 Abnormal lab findings: Abnormal Labs 06/28/18 06/28/18 06/28/18 10:38 20:54 20:54 WBC 24.8 H RBC Hgb 16.6 H Hct 50.3 H MCV 107 H MCH 35 H RDW 15.6 H Plt Count Lymph % (Auto) Lymph # Baso # Seg Neutrophils % Seg Neuts % (Manual) 95.0 H Lymphocytes % (Manual) 3.0 L Nucleated RBC % Seg Neutrophils # Seg Neutrophils # Man 23.6 H Lymphocytes # (Manual) 0.7 L Monocytes # (Manual) D-Dimer Heparin Anti-Xa Level Sodium 131 L Potassium Chloride 89.6 L Carbon Dioxide 19 L BUN 29 H Creatinine 9.3 H Glucose 174 H POC Glucose Lactic Acid Calcium ALT 5 L Troponin T 0.073 H C-Reactive Protein Albumin 3.2 L Triglycerides 194 H HDL Cholesterol 68 H Vitamin B12 Folate 06/28/18 06/29/18 06/29/18 22:26 12:18 13:30 WBC RBC Hgb Hct MCV MCH RDW Plt Count Lymph % (Auto) Lymph # Baso # Seg Neutrophils % Seg Neuts % (Manual) Lymphocytes % (Manual) Nucleated RBC % Seg Neutrophils # Seg Neutrophils # Man Lymphocytes # (Manual) Monocytes # (Manual) D-Dimer > 51806 H Heparin Anti-Xa Level Sodium Potassium Chloride Carbon Dioxide BUN Creatinine Glucose POC Glucose 168 H Lactic Acid Calcium ALT Troponin T 0.073 H C-Reactive Protein Albumin Triglycerides HDL Cholesterol Vitamin B12 Folate 06/29/18 06/29/18 06/29/18 13:30 14:11 16:36 WBC 19.8 H RBC Hgb 14.7 H Hct 45.4 H MCV 108 H MCH 35 H RDW 15.9 H Plt Count Lymph % (Auto) Lymph # Baso # Seg Neutrophils % Seg Neuts % (Manual) Lymphocytes % (Manual) Nucleated RBC % Seg Neutrophils # Seg Neutrophils # Man Lymphocytes # (Manual) Monocytes # (Manual) D-Dimer Heparin Anti-Xa Level Sodium 133 L Potassium Chloride 91.7 L Carbon Dioxide 20 L BUN 33 H Creatinine 9.9 H Glucose 196 H POC Glucose 165 H Lactic Acid Calcium ALT Troponin T C-Reactive Protein Albumin Triglycerides HDL Cholesterol Vitamin B12 Folate 06/29/18 06/29/18 06/30/18 20:37 22:01 04:49 WBC 14.8 H RBC Hgb Hct MCV 106 H MCH 35 H RDW 15.5 H Plt Count Lymph % (Auto) Lymph # Baso # Seg Neutrophils % Seg Neuts % (Manual) 90.0 H Lymphocytes % (Manual) 5.0 L Nucleated RBC % Seg Neutrophils # Seg Neutrophils # Man 13.3 H Lymphocytes # (Manual) 0.7 L Monocytes # (Manual) D-Dimer Heparin Anti-Xa Level Sodium Potassium Chloride Carbon Dioxide BUN Creatinine Glucose POC Glucose 202 H Lactic Acid Calcium ALT Troponin T 0.077 H C-Reactive Protein Albumin Triglycerides HDL Cholesterol Vitamin B12 Folate 06/30/18 06/30/18 06/30/18 04:49 08:27 12:17 WBC RBC Hgb Hct MCV MCH RDW Plt Count Lymph % (Auto) Lymph # Baso # Seg Neutrophils % Seg Neuts % (Manual) Lymphocytes % (Manual) Nucleated RBC % Seg Neutrophils # Seg Neutrophils # Man Lymphocytes # (Manual) Monocytes # (Manual) D-Dimer Heparin Anti-Xa Level Sodium 134 L Potassium 3.5 L Chloride 94.7 L Carbon Dioxide BUN 30 H Creatinine 8.8 H Glucose 182 H POC Glucose 170 H 145 H Lactic Acid Calcium 7.9 L ALT Troponin T C-Reactive Protein Albumin Triglycerides HDL Cholesterol Vitamin B12 Folate 06/30/18 06/30/18 07/01/18 16:44 22:06 07:21 WBC 11.8 H RBC 3.32 L Hgb Hct MCV 105 H MCH 35 H RDW 15.5 H Plt Count 125 L Lymph % (Auto) Lymph # Baso # Seg Neutrophils % Seg Neuts % (Manual) Lymphocytes % (Manual) Nucleated RBC % Seg Neutrophils # Seg Neutrophils # Man Lymphocytes # (Manual) Monocytes # (Manual) D-Dimer Heparin Anti-Xa Level Sodium Potassium Chloride Carbon Dioxide BUN Creatinine Glucose POC Glucose 155 H 174 H Lactic Acid Calcium ALT Troponin T C-Reactive Protein Albumin Triglycerides HDL Cholesterol Vitamin B12 Folate 07/01/18 07/01/18 07/01/18 07:21 08:22 11:38 WBC RBC Hgb Hct MCV MCH RDW Plt Count Lymph % (Auto) Lymph # Baso # Seg Neutrophils % Seg Neuts % (Manual) Lymphocytes % (Manual) Nucleated RBC % Seg Neutrophils # Seg Neutrophils # Man Lymphocytes # (Manual) Monocytes # (Manual) D-Dimer Heparin Anti-Xa Level Sodium 134 L Potassium Chloride 95.9 L Carbon Dioxide BUN 31 H Creatinine 8.4 H Glucose 151 H POC Glucose 117 H 166 H Lactic Acid Calcium 7.8 L ALT Troponin T C-Reactive Protein Albumin Triglycerides HDL Cholesterol Vitamin B12 Folate 07/01/18 07/01/18 07/01/18 13:32 13:32 16:27 WBC RBC Hgb Hct MCV MCH RDW Plt Count Lymph % (Auto) Lymph # Baso # Seg Neutrophils % Seg Neuts % (Manual) Lymphocytes % (Manual) Nucleated RBC % Seg Neutrophils # Seg Neutrophils # Man Lymphocytes # (Manual) Monocytes # (Manual) D-Dimer Heparin Anti-Xa Level Sodium Potassium Chloride Carbon Dioxide BUN Creatinine Glucose POC Glucose 149 H Lactic Acid 2.20 H* Calcium ALT Troponin T C-Reactive Protein 7.40 H Albumin Triglycerides HDL Cholesterol Vitamin B12 Folate 07/01/18 07/01/18 07/02/18 19:35 21:36 05:22 WBC RBC Hgb Hct MCV MCH RDW Plt Count Lymph % (Auto) Lymph # Baso # Seg Neutrophils % Seg Neuts % (Manual) Lymphocytes % (Manual) Nucleated RBC % Seg Neutrophils # Seg Neutrophils # Man Lymphocytes # (Manual) Monocytes # (Manual) D-Dimer Heparin Anti-Xa Level Sodium Potassium Chloride Carbon Dioxide BUN Creatinine Glucose POC Glucose 129 H Lactic Acid 2.60 H* 2.20 H* Calcium ALT Troponin T C-Reactive Protein Albumin Triglycerides HDL Cholesterol Vitamin B12 Folate 07/02/18 07/02/18 07/02/18 05:22 05:22 07:11 WBC 12.6 H RBC 3.51 L Hgb Hct MCV 105 H MCH 35 H RDW Plt Count 132 L Lymph % (Auto) Lymph # Baso # Seg Neutrophils % Seg Neuts % (Manual) 92.0 H Lymphocytes % (Manual) 2.0 L Nucleated RBC % Seg Neutrophils # Seg Neutrophils # Man 11.6 H Lymphocytes # (Manual) 0.3 L Monocytes # (Manual) D-Dimer Heparin Anti-Xa Level Sodium 131 L Potassium 3.3 L Chloride 93.1 L Carbon Dioxide BUN 31 H Creatinine 7.5 H Glucose 228 H POC Glucose 215 H Lactic Acid Calcium 7.7 L ALT Troponin T C-Reactive Protein Albumin Triglycerides HDL Cholesterol Vitamin B12 Folate 07/02/18 07/02/18 07/03/18 15:35 21:56 10:56 WBC RBC Hgb Hct MCV MCH RDW Plt Count Lymph % (Auto) Lymph # Baso # Seg Neutrophils % Seg Neuts % (Manual) Lymphocytes % (Manual) Nucleated RBC % Seg Neutrophils # Seg Neutrophils # Man Lymphocytes # (Manual) Monocytes # (Manual) D-Dimer Heparin Anti-Xa Level Sodium 130 L Potassium Chloride 91.6 L Carbon Dioxide BUN 33 H Creatinine 7.8 H Glucose POC Glucose 123 H 135 H Lactic Acid Calcium 7.7 L ALT Troponin T C-Reactive Protein Albumin Triglycerides HDL Cholesterol Vitamin B12 Folate 07/03/18 07/03/18 07/03/18 11:00 21:03 22:06 WBC 11.9 H RBC 3.59 L Hgb Hct MCV 103 H MCH 35 H RDW Plt Count Lymph % (Auto) Lymph # Baso # Seg Neutrophils % Seg Neuts % (Manual) 94.0 H Lymphocytes % (Manual) 5.0 L Nucleated RBC % Seg Neutrophils # Seg Neutrophils # Man 11.2 H Lymphocytes # (Manual) 0.6 L Monocytes # (Manual) D-Dimer Heparin Anti-Xa Level 0.28 L Sodium Potassium Chloride Carbon Dioxide BUN Creatinine Glucose POC Glucose 177 H Lactic Acid Calcium ALT Troponin T C-Reactive Protein Albumin Triglycerides HDL Cholesterol Vitamin B12 Folate 07/04/18 07/04/18 07/04/18 01:08 05:22 05:22 WBC 13.1 H RBC Hgb Hct MCV 104 H MCH 35 H RDW Plt Count 139 L Lymph % (Auto) 5.0 L Lymph # 0.7 L Baso # 0.2 H Seg Neutrophils % 87.7 H Seg Neuts % (Manual) Lymphocytes % (Manual) Nucleated RBC % Seg Neutrophils # 11.5 H Seg Neutrophils # Man Lymphocytes # (Manual) Monocytes # (Manual) D-Dimer Heparin Anti-Xa Level Sodium 132 L Potassium 3.1 L Chloride 92.4 L Carbon Dioxide BUN 30 H Creatinine 7.4 H Glucose 113 H POC Glucose 106 H Lactic Acid Calcium 7.8 L ALT Troponin T C-Reactive Protein Albumin Triglycerides HDL Cholesterol Vitamin B12 Folate 07/04/18 07/04/18 07/04/18 05:22 12:15 14:59 WBC RBC Hgb Hct MCV MCH RDW Plt Count Lymph % (Auto) Lymph # Baso # Seg Neutrophils % Seg Neuts % (Manual) Lymphocytes % (Manual) Nucleated RBC % Seg Neutrophils # Seg Neutrophils # Man Lymphocytes # (Manual) Monocytes # (Manual) D-Dimer Heparin Anti-Xa Level 1.31 H 1.70 H Sodium Potassium Chloride Carbon Dioxide BUN Creatinine Glucose POC Glucose 200 H Lactic Acid Calcium ALT Troponin T C-Reactive Protein Albumin Triglycerides HDL Cholesterol Vitamin B12 Folate 07/04/18 07/05/18 07/05/18 20:56 06:17 06:17 WBC RBC 3.51 L Hgb Hct MCV 104 H MCH 35 H RDW Plt Count Lymph % (Auto) 7.8 L Lymph # 0.7 L Baso # Seg Neutrophils % 85.2 H Seg Neuts % (Manual) Lymphocytes % (Manual) Nucleated RBC % Seg Neutrophils # Seg Neutrophils # Man Lymphocytes # (Manual) Monocytes # (Manual) D-Dimer Heparin Anti-Xa Level Sodium 132 L Potassium 3.1 L Chloride 92.7 L Carbon Dioxide BUN 29 H Creatinine 7.3 H Glucose 115 H POC Glucose 133 H Lactic Acid Calcium 7.9 L ALT Troponin T C-Reactive Protein Albumin Triglycerides HDL Cholesterol Vitamin B12 Folate 07/05/18 07/06/18 07/06/18 23:47 06:53 06:53 WBC RBC 3.47 L Hgb Hct MCV 104 H MCH 35 H RDW Plt Count Lymph % (Auto) Lymph # Baso # Seg Neutrophils % Seg Neuts % (Manual) 93.0 H Lymphocytes % (Manual) 2.0 L Nucleated RBC % Seg Neutrophils # Seg Neutrophils # Man 8.6 H Lymphocytes # (Manual) 0.2 L Monocytes # (Manual) D-Dimer Heparin Anti-Xa Level Sodium 132 L Potassium 3.2 L Chloride 94.5 L Carbon Dioxide BUN 32 H Creatinine 8.7 H Glucose 106 H POC Glucose 112 H Lactic Acid Calcium 7.8 L ALT Troponin T C-Reactive Protein Albumin Triglycerides HDL Cholesterol Vitamin B12 Folate 07/06/18 07/06/18 07/07/18 16:23 22:56 07:56 WBC RBC Hgb Hct MCV MCH RDW Plt Count Lymph % (Auto) Lymph # Baso # Seg Neutrophils % Seg Neuts % (Manual) Lymphocytes % (Manual) Nucleated RBC % Seg Neutrophils # Seg Neutrophils # Man Lymphocytes # (Manual) Monocytes # (Manual) D-Dimer Heparin Anti-Xa Level Sodium Potassium Chloride Carbon Dioxide BUN Creatinine Glucose POC Glucose 126 H 139 H 181 H Lactic Acid Calcium ALT Troponin T C-Reactive Protein Albumin Triglycerides HDL Cholesterol Vitamin B12 Folate 07/07/18 07/07/18 07/07/18 09:35 09:35 12:52 WBC RBC Hgb Hct MCV 105 H MCH 35 H RDW Plt Count Lymph % (Auto) 6.3 L Lymph # 0.6 L Baso # Seg Neutrophils % 87.9 H Seg Neuts % (Manual) Lymphocytes % (Manual) Nucleated RBC % Seg Neutrophils # 8.2 H Seg Neutrophils # Man Lymphocytes # (Manual) Monocytes # (Manual) D-Dimer Heparin Anti-Xa Level Sodium 130 L Potassium 3.4 L Chloride 90.3 L Carbon Dioxide BUN 29 H Creatinine 8.0 H Glucose 201 H POC Glucose 161 H Lactic Acid Calcium 8.0 L ALT Troponin T C-Reactive Protein Albumin Triglycerides HDL Cholesterol Vitamin B12 Folate 07/07/18 07/08/18 07/08/18 21:56 05:19 05:19 WBC 12.7 H RBC Hgb Hct MCV 104 H MCH 35 H RDW Plt Count Lymph % (Auto) Lymph # Baso # Seg Neutrophils % Seg Neuts % (Manual) 92.0 H Lymphocytes % (Manual) 5.0 L Nucleated RBC % 1.0 H Seg Neutrophils # Seg Neutrophils # Man 11.7 H Lymphocytes # (Manual) 0.6 L Monocytes # (Manual) D-Dimer Heparin Anti-Xa Level Sodium 134 L Potassium 3.4 L Chloride 93.6 L Carbon Dioxide BUN 30 H Creatinine 8.0 H Glucose 184 H POC Glucose 162 H Lactic Acid Calcium ALT Troponin T C-Reactive Protein Albumin Triglycerides HDL Cholesterol Vitamin B12 Folate 07/08/18 07/08/18 07/08/18 05:19 05:19 08:25 WBC RBC Hgb Hct MCV MCH RDW Plt Count Lymph % (Auto) Lymph # Baso # Seg Neutrophils % Seg Neuts % (Manual) Lymphocytes % (Manual) Nucleated RBC % Seg Neutrophils # Seg Neutrophils # Man Lymphocytes # (Manual) Monocytes # (Manual) D-Dimer Heparin Anti-Xa Level Sodium Potassium Chloride Carbon Dioxide BUN Creatinine Glucose POC Glucose 200 H Lactic Acid Calcium ALT Troponin T C-Reactive Protein Albumin Triglycerides HDL Cholesterol Vitamin B12 1416 H Folate 2.39 L 07/08/18 07/08/18 07/08/18 11:48 16:14 21:53 WBC RBC Hgb Hct MCV MCH RDW Plt Count Lymph % (Auto) Lymph # Baso # Seg Neutrophils % Seg Neuts % (Manual) Lymphocytes % (Manual) Nucleated RBC % Seg Neutrophils # Seg Neutrophils # Man Lymphocytes # (Manual) Monocytes # (Manual) D-Dimer Heparin Anti-Xa Level Sodium Potassium Chloride Carbon Dioxide BUN Creatinine Glucose POC Glucose 202 H 176 H 219 H Lactic Acid Calcium ALT Troponin T C-Reactive Protein Albumin Triglycerides HDL Cholesterol Vitamin B12 Folate 07/09/18 07/09/18 07/09/18 07:50 09:51 09:51 WBC 15.8 H RBC Hgb Hct 43.4 H MCV 105 H MCH 34 H RDW Plt Count Lymph % (Auto) Lymph # Baso # Seg Neutrophils % Seg Neuts % (Manual) 94.0 H Lymphocytes % (Manual) 3.0 L Nucleated RBC % 1.0 H Seg Neutrophils # Seg Neutrophils # Man 14.9 H Lymphocytes # (Manual) 0.5 L Monocytes # (Manual) D-Dimer Heparin Anti-Xa Level Sodium 135 L Potassium Chloride 95.5 L Carbon Dioxide BUN 29 H Creatinine 8.4 H Glucose 204 H POC Glucose 163 H Lactic Acid Calcium ALT Troponin T C-Reactive Protein Albumin Triglycerides HDL Cholesterol Vitamin B12 Folate 07/09/18 07/09/18 07/09/18 11:50 18:47 22:16 WBC RBC Hgb Hct MCV MCH RDW Plt Count Lymph % (Auto) Lymph # Baso # Seg Neutrophils % Seg Neuts % (Manual) Lymphocytes % (Manual) Nucleated RBC % Seg Neutrophils # Seg Neutrophils # Man Lymphocytes # (Manual) Monocytes # (Manual) D-Dimer Heparin Anti-Xa Level Sodium Potassium Chloride Carbon Dioxide BUN Creatinine Glucose POC Glucose 156 H 176 H 189 H Lactic Acid Calcium ALT Troponin T C-Reactive Protein Albumin Triglycerides HDL Cholesterol Vitamin B12 Folate 07/10/18 07/10/18 07/10/18 05:35 08:22 08:52 WBC 17.9 H RBC Hgb Hct MCV 105 H MCH 34 H RDW Plt Count Lymph % (Auto) Lymph # Baso # Seg Neutrophils % Seg Neuts % (Manual) 87.0 H Lymphocytes % (Manual) 6.0 L Nucleated RBC % Seg Neutrophils # Seg Neutrophils # Man 15.6 H Lymphocytes # (Manual) 1.1 L Monocytes # (Manual) 1.1 H D-Dimer Heparin Anti-Xa Level Sodium 135 L Potassium Chloride 92.8 L Carbon Dioxide BUN 27 H Creatinine 7.5 H Glucose 175 H POC Glucose 129 H Lactic Acid Calcium ALT Troponin T C-Reactive Protein Albumin Triglycerides HDL Cholesterol Vitamin B12 Folate 07/10/18 07/10/18 07/10/18 11:47 18:22 21:32 WBC RBC Hgb Hct MCV MCH RDW Plt Count Lymph % (Auto) Lymph # Baso # Seg Neutrophils % Seg Neuts % (Manual) Lymphocytes % (Manual) Nucleated RBC % Seg Neutrophils # Seg Neutrophils # Man Lymphocytes # (Manual) Monocytes # (Manual) D-Dimer Heparin Anti-Xa Level Sodium Potassium Chloride Carbon Dioxide BUN Creatinine Glucose POC Glucose 189 H 211 H 306 H Lactic Acid Calcium ALT Troponin T C-Reactive Protein Albumin Triglycerides HDL Cholesterol Vitamin B12 Folate 07/11/18 07/11/18 07/11/18 04:10 07:36 11:49 WBC 19.4 H RBC Hgb Hct MCV 107 H MCH 35 H RDW 15.3 H Plt Count Lymph % (Auto) Lymph # Baso # Seg Neutrophils % Seg Neuts % (Manual) 89.0 H Lymphocytes % (Manual) 4.0 L Nucleated RBC % Seg Neutrophils # Seg Neutrophils # Man 17.3 H Lymphocytes # (Manual) 0.8 L Monocytes # (Manual) D-Dimer Heparin Anti-Xa Level Sodium Potassium Chloride Carbon Dioxide BUN Creatinine Glucose POC Glucose 113 H 123 H Lactic Acid Calcium ALT Troponin T C-Reactive Protein Albumin Triglycerides HDL Cholesterol Vitamin B12 Folate 07/11/18 07/11/18 07/12/18 17:35 23:28 00:48 WBC 17.0 H RBC Hgb Hct MCV 106 H MCH 35 H RDW Plt Count Lymph % (Auto) Lymph # Baso # Seg Neutrophils % Seg Neuts % (Manual) 92.0 H Lymphocytes % (Manual) 3.0 L Nucleated RBC % Seg Neutrophils # Seg Neutrophils # Man 15.6 H Lymphocytes # (Manual) 0.5 L Monocytes # (Manual) 0.9 H D-Dimer Heparin Anti-Xa Level Sodium Potassium Chloride Carbon Dioxide BUN Creatinine Glucose POC Glucose 207 H 188 H Lactic Acid Calcium ALT Troponin T C-Reactive Protein Albumin Triglycerides HDL Cholesterol Vitamin B12 Folate 07/12/18 07/12/18 07/12/18 04:05 09:21 12:05 WBC RBC Hgb Hct MCV MCH RDW Plt Count Lymph % (Auto) Lymph # Baso # Seg Neutrophils % Seg Neuts % (Manual) Lymphocytes % (Manual) Nucleated RBC % Seg Neutrophils # Seg Neutrophils # Man Lymphocytes # (Manual) Monocytes # (Manual) D-Dimer Heparin Anti-Xa Level Sodium Potassium Chloride Carbon Dioxide BUN Creatinine Glucose POC Glucose 147 H 125 H 113 H Lactic Acid Calcium ALT Troponin T C-Reactive Protein Albumin Triglycerides HDL Cholesterol Vitamin B12 Folate 07/12/18 07/13/18 07/13/18 22:25 05:28 05:28 WBC 15.5 H RBC 3.62 L Hgb Hct MCV 105 H MCH 34 H RDW Plt Count Lymph % (Auto) Lymph # Baso # Seg Neutrophils % Seg Neuts % (Manual) 99.0 H Lymphocytes % (Manual) 1.0 L Nucleated RBC % Seg Neutrophils # Seg Neutrophils # Man 15.3 H Lymphocytes # (Manual) 0.2 L Monocytes # (Manual) D-Dimer Heparin Anti-Xa Level Sodium 133 L Potassium Chloride 95.0 L Carbon Dioxide BUN 43 H Creatinine 9.1 H Glucose 124 H POC Glucose 162 H Lactic Acid Calcium 8.0 L ALT Troponin T C-Reactive Protein Albumin Triglycerides HDL Cholesterol Vitamin B12 Folate 07/13/18 07/13/18 07/13/18 07:59 11:40 16:41 WBC RBC Hgb Hct MCV MCH RDW Plt Count Lymph % (Auto) Lymph # Baso # Seg Neutrophils % Seg Neuts % (Manual) Lymphocytes % (Manual) Nucleated RBC % Seg Neutrophils # Seg Neutrophils # Man Lymphocytes # (Manual) Monocytes # (Manual) D-Dimer Heparin Anti-Xa Level Sodium Potassium Chloride Carbon Dioxide BUN Creatinine Glucose POC Glucose 191 H 195 H 204 H Lactic Acid Calcium ALT Troponin T C-Reactive Protein Albumin Triglycerides HDL Cholesterol Vitamin B12 Folate 07/13/18 07/14/18 07/14/18 22:38 04:15 04:15 WBC 13.1 H RBC Hgb Hct MCV 107 H MCH 34 H RDW Plt Count Lymph % (Auto) Lymph # Baso # Seg Neutrophils % Seg Neuts % (Manual) 89.0 H Lymphocytes % (Manual) 6.0 L Nucleated RBC % Seg Neutrophils # Seg Neutrophils # Man 11.7 H Lymphocytes # (Manual) 0.8 L Monocytes # (Manual) D-Dimer Heparin Anti-Xa Level Sodium 136 L Potassium Chloride 95.3 L Carbon Dioxide BUN 40 H Creatinine 8.1 H Glucose POC Glucose 190 H Lactic Acid Calcium ALT Troponin T C-Reactive Protein Albumin Triglycerides HDL Cholesterol Vitamin B12 Folate 07/14/18 07/14/18 07/14/18 07:57 12:18 17:24 WBC RBC Hgb Hct MCV MCH RDW Plt Count Lymph % (Auto) Lymph # Baso # Seg Neutrophils % Seg Neuts % (Manual) Lymphocytes % (Manual) Nucleated RBC % Seg Neutrophils # Seg Neutrophils # Man Lymphocytes # (Manual) Monocytes # (Manual) D-Dimer Heparin Anti-Xa Level Sodium Potassium Chloride Carbon Dioxide BUN Creatinine Glucose POC Glucose 205 H 180 H 249 H Lactic Acid Calcium ALT Troponin T C-Reactive Protein Albumin Triglycerides HDL Cholesterol Vitamin B12 Folate 07/14/18 07/15/18 07/15/18 22:19 06:42 06:42 WBC 11.9 H RBC Hgb Hct MCV 105 H MCH 34 H RDW Plt Count Lymph % (Auto) 6.4 L Lymph # 0.8 L Baso # Seg Neutrophils % 89.6 H Seg Neuts % (Manual) Lymphocytes % (Manual) Nucleated RBC % Seg Neutrophils # 10.6 H Seg Neutrophils # Man Lymphocytes # (Manual) Monocytes # (Manual) D-Dimer Heparin Anti-Xa Level Sodium 131 L Potassium 3.5 L Chloride 94.3 L Carbon Dioxide BUN 36 H Creatinine 7.0 H Glucose 166 H POC Glucose 156 H Lactic Acid Calcium 8.1 L ALT Troponin T C-Reactive Protein Albumin Triglycerides HDL Cholesterol Vitamin B12 Folate 07/15/18 07/15/18 07/15/18 08:12 11:46 15:44 WBC RBC Hgb Hct MCV MCH RDW Plt Count Lymph % (Auto) Lymph # Baso # Seg Neutrophils % Seg Neuts % (Manual) Lymphocytes % (Manual) Nucleated RBC % Seg Neutrophils # Seg Neutrophils # Man Lymphocytes # (Manual) Monocytes # (Manual) D-Dimer Heparin Anti-Xa Level Sodium Potassium Chloride Carbon Dioxide BUN Creatinine Glucose POC Glucose 187 H 201 H 169 H Lactic Acid Calcium ALT Troponin T C-Reactive Protein Albumin Triglycerides HDL Cholesterol Vitamin B12 Folate Allied health notes reviewed: nursing
[2018-07-15] MEDS ORDERED: D50W (25GM) Syringe IV ONE (23:59)
[2018-07-16] MEDS ORDERED: TAZICEF IP SCH
[2018-07-16] MEDS ORDERED: [UNRECOGNIZED DRUG - OTHER] IP SCH
[2018-07-16] MEDS ORDERED: HEPARIN IP SCH
[2018-07-16] MEDS ORDERED: DEXTROSE IP SCH
[2018-07-16 05:42] LABS: Hemoglobin 12.2 gm/dl (10.1-14.3); Mean Corpuscular HGB Conc 32 % (30-34); Mean Corpuscular Volume 106 fl (79-97); Platelet Count 254 K/mm3 (140-440); Red Blood Count 3.58 M/mm3 (3.65-5.03); Red Cell Distribution Width 15.2 % (13.2-15.2)
[2018-07-16] MEDS: [UNRECOGNIZED DRUG - OTHER] IP SCH ×2 (06:00→11:51)
[2018-07-16 06:03] LABS: Calcium 8.4 mg/dL (8.4-10.2)
[2018-07-16] MEDS ORDERED: K-DUR PO ONE (06:31)
[2018-07-16 06:36] LABS: Band Neutrophils # (Manual) 0.3 K/mm3; Basophils % (Manual) 0 % (0.0-1.8); Eosinophils % (Manual) 0 % (0.0-4.3); Total Cells Counted 100
[2018-07-16 06:37] LABS: Large Platelets Few; Platelet Estimate Cons
[2018-07-16] MEDS ORDERED: NACL 0.9% 250ML 250 ML ONE (09:05)
[2018-07-16] MEDS ORDERED: ANCEF/STERILE WATER 2 GM/20 ML 2 GM/20 ML SYRINGE IV ONE (09:05)
[2018-07-16] MEDS ORDERED: HEPARIN/NS 5000 UNIT/500ML(CATH LAB) 500 ML IR ONE (09:05)
[2018-07-16] MEDS ORDERED: XYLOCAINE 2% INFILTRATI ONE (09:05)
[2018-07-16] MEDS ORDERED: HEPARIN 10,000 UNITS/10 ML ONE (09:05)
[2018-07-16] MEDS ORDERED: SUBLIMAZE ONE (09:24)
[2018-07-16] MEDS ORDERED: VERSED ONE (09:24)
--- NOTE | 2018-07-16 09:32 | Progress Note ---
Assessment and Plan Cultures: 06/29/2018 Blood culture: No growth 07/01/2018 peritoneal dialysate culture: No growth 07/08/2018 blood culture: No growth at 48 hours 07/10/2018 peritoneal fluid culture: many PMN's, no growth 07/12/2018 peritoneal fluid culture: many PMN's, no growth A/P: 67-year-old female with ESRD on peritoneal dialysis, hypertension, hyperlipidemia, diabetes mellitus type 2 who presented to the emergency room and was hospitalized on 06/29/2018 with complaints of fall. Now with: 1) Sepsis: Improved. Leukocytosis continuing, secondary to PD associated peritonitis. Chest x-ray without pneumonia, blood cultures with no growth. Patient doesn't make any urine, UTI unlikely. No report of diarrhea. CT abdomen shows moderate-sized umbilical hernia present containing adipose tissue. No he rniated loops of bowel are seen. 2 ESRD on PD: Renally dose antibiotics. Right IJ permacath placed today. Refused PD removal until later on this week. 3) Left leg DVT: on anticoagulation. Recs: Continue cefepime and vancomycin renally adjusted, D7 f/u PD fluid cultures Alka Varner NP [facility] M: [id number] O:[phone] Subjective Date of service: 07/16/18 Principal diagnosis: dvt Interval history: Patient seen and examined. Awake, Alert . No acute distress reported. Mild abdominal tenderness. Objective - Exam Narrative Exam: Constitutional: Alert, cooperative. No acute distress Head, Ears, Nose: Normocephalic, atraumatic. External ears, nose normal Eyes: Conjunctivae/corneas clear. No icterus. No ptosis. Neck: Supple, no meningeal signs Oral: mucosa moist, no thrush Cardiovascular: S1, S2 normal. Respiratory: Good air entry, clear to auscultation bilaterally GI: Soft, mildly tender,+ small drainage at PD site. Musculoskeletal: No pedal edema, no cyanosis. Skin: No rash or abscess Hem/Lymphatic: No palpable cervical or supraclavicular nodes. No lymphangitis Psych: Mood ok. Affect normal Neurological: Awake, alert, oriented. No gross abnormality Lines: Right IJ Permacath - Constitutional Vitals: Vital Signs Temp Pulse Resp BP Pulse Ox 98.7 F 109 H 20 104/64 92 07/16/18 01:40 07/16/18 01:40 07/16/18 01:40 07/16/18 01:40 07/16/18 01:40 Temperature -Last 24 Hours Temperature 98.7 F Temperature 98.8 F Temperature 99.2 F - Labs CBC & Chem 7: 07/16/18 05:12 07/16/18 05:12 Labs: Abnormal lab results 07/15/18 07/15/18 07/15/18 Range/Units 11:46 15:44 23:09 WBC (4.5-11.0) K/mm3 RBC (3.65-5.03) M/mm3 MCV (79-97) fl MCH (28-32) pg Seg Neuts % (Manual) (40.0-70.0) % Lymphocytes % (Manual) (13.4-35.0) % Seg Neutrophils # Man (1.8-7.7) K/mm3 Lymphocytes # (Manual) (1.2-5.4) K/mm3 Sodium (137-145) mmol/L Potassium (3.6-5.0) mmol/L Chloride (98-107) mmol/L BUN (7-17) mg/dL Creatinine (0.7-1.2) mg/dL Glucose (65-100) mg/dL POC Glucose 201 H 169 H < 40 L (70-105) 07/16/18 07/16/18 07/16/18 Range/Units 00:22 01:52 04:22 WBC (4.5-11.0) K/mm3 RBC (3.65-5.03) M/mm3 MCV (79-97) fl MCH (28-32) pg Seg Neuts % (Manual) (40.0-70.0) % Lymphocytes % (Manual) (13.4-35.0) % Seg Neutrophils # Man (1.8-7.7) K/mm3 Lymphocytes # (Manual) (1.2-5.4) K/mm3 Sodium (137-145) mmol/L Potassium (3.6-5.0) mmol/L Chloride (98-107) mmol/L BUN (7-17) mg/dL Creatinine (0.7-1.2) mg/dL Glucose 234 H (65-100) mg/dL POC Glucose 203 H 194 H (70-105) 0407/16/18 07/16/18 Range/Units 05:12 05:12 08:45 WBC 14.0 H (4.5-11.0) K/mm3 RBC 3.58 L (3.65-5.03) M/mm3 MCV 106 H (79-97) fl MCH 34 H (28-32) pg Seg Neuts % (Manual) 92.0 H (40.0-70.0) % Lymphocytes % (Manual) 4.0 L (13.4-35.0) % Seg Neutrophils # Man 12.9 H (1.8-7.7) K/mm3 Lymphocytes # (Manual) 0.6 L (1.2-5.4) K/mm3 Sodium 130 L (137-145) mmol/L Potassium 2.9 L* (3.6-5.0) mmol/L Chloride 92.9 L (98-107) mmol/L BUN 38 H (7-17) mg/dL Creatinine 6.8 H (0.7-1.2) mg/dL Glucose 194 H (65-100) mg/dL POC Glucose 155 H (70-105)
--- NOTE | 2018-07-16 09:51 | Event Note ---
Date: 07/16/[address] permacath for dialysis access. The procedure was described in detail to the patient and she agrees to proceed. We'll plan on placing right internal jugular vein permacath.
--- NOTE | 2018-07-16 09:52 | Operative Report ---
Operative Report Operative Report: Date of procedure: 07/16/18 Pre-operative diagnosis: ESRD Post-operative diagnosis: same Procedure name(s): 1. US guided puncture of the right internal jugular vein 2. Placement of right internal jugular permacath (Glidepath 19 cm) 3. Fluoroscopic supervision Surgeon: Luis Patrick MD, FACS [place] Hand: none Anesthesia: local only EBL: minimal Operative indication: Patient is a 67 yo woman who requires hemodialysis access. Findings: Good flow from both ports. Catheter located at the cavoatrial j unction. Procedure: The patient was placed on the table in the supine position. The area over the right neck and chest was prepped with ChloraPrep solution and draped in usual sterile fashion. 2% lidocaine was used for local anesthesia. Under real-time ultrasound guidance the right internal jugular vein was identified and cannulated. A guidewire was advanced into the central circulation. A tunnel was made over the anterior chest using the tunneling device in the kit. The catheter was then tunneled between the 2 incisions. Using a series of dilators, the track into the jugular vein was dilated. The introducer sheath was then placed. The catheter was placed through the introducer sheath which was then removed. The catheter tip was placed at the cavoatrial junction. The catheters were aspirated with excellent flow from both ports. Both ports flushed easily. They were then filled to their stated volume with 1000 unit per milliliter heparin. Closure at the insertion site was done with 4-0 subcuticular PDS. The catheter was sewn to the skin with 2-0 Proline. Sterile dressings were applied. The patient tolerated the procedure well.
[2018-07-16] MEDS: HumaLOG SUB-Q SCH ×4 (10:05→21:58)
[2018-07-16] MEDS: PROAMATINE PO SCH ×4 (10:05→22:21)
[2018-07-16] MEDS: RENVELA PO SCH ×3 (10:05→18:23)
--- NOTE | 2018-07-16 11:04 | Hem/Onc Progress Note ---
Assessment and Plan 1. Left leg deep venous thrombosis. The patient was on heparin drip. The patient is on peritoneal dialysis. The dose of Eliquis or any direct thrombin inhibitors or other anticoagulation monitoring may become challenging. I will discuss with other team members regarding the dosage. The question arises if a lower dose of Eliquis is sufficient. 2. MCV elevated. We will investigate. 3. Elevated D-dimers. 4. History of renal failure, on peritoneal dialysis. 5. History of hypertension. She was hypotensive at admission. 6. History of diabetes. 7. I will follow the patient during inpatient stay and then in the clinic setting for anticoagulation management. Option of Coumadin is also available but that would involve monitoring. 07/05 - d/w dr cartagena - pharmacy to help reg NOAC - ? eliquis 2.5 q 12? 07/06 - pharmacy has placed pt on 5 mg q 12 07/08 - pt on eliquis - d/w dr noyola - Placement pending gets PD 07/09 - pt had fever on eliquis for left leg dvt. h/o abdo discomfort - on and off 07/10/2018 DVT - on eliquis c/o abdo discomfort - d/w dr andrade - US abdo elevated MCV - low folate - replace ESRD on PD h/o fever 07/11 US abdo done - report pending Leukocytosis - seen by ID on eliquis 07/13/2018 pt says PD catheter not working US abdo done ID - for Abx eliquis for DVT 07/14 DVT - eliquis WBC high - on Abx MCV elevated - low folate - on Rx on Pd 07/15 dvt - on eliquis h/o anemia - on procrit - folic acid on PD for CKD OP follow up from hem perspective 07/16 HD cath PD cath removal being looked into DVT - on eliquis - reviewed dose for HD - Patient Problems (1) DVT (deep venous thrombosis) Current Visit: Yes Status: Acute Qualifiers: DVT location: lower extremity Chronicity: acute Subjective Date of service: 07/16/18 Principal diagnosis: dvt leg Interval history: chest - HD cath Objective - Constitutional Vitals: Last Vital Signs Temp 99.1 F 07/16/18 08:43 Pulse 104 H 07/16/18 08:43 Resp 20 07/16/18 08:43 BP 102/64 07/16/18 08:43 Pulse Ox 99 07/16/18 08:43 Pain Intensity (0-10): denies any pain General appearance: no acute distress Performance status: 3-limited selfcare - EENT Eyes: EOM intact ENT: clear oral mucosa Lymph node exam: negative cervical - Neck Neck: normal ROM - Respiratory Respiratory effort: Positive: normal Respiratory: bilateral: CTA - Cardiovascular Heart Sounds: Present: S1 & S2 Extremities: No edema - Gastrointestinal General gastrointestinal: Present: soft, non-tender Rectal Exam: deferred - Genitourinary Female genitourinary: Present: deferred - Integumentary Integumentary: warm - Musculoskeletal Musculoskeletal: strength equal bilaterally - Neurologic Neurologic: moves all extremities - Labs Lab Results: Laboratory Results - last 24 hr 07/14/18 07/15/18 07/15/18 14:48 11:46 15:44 WBC RBC Hgb Hct MCV MCH MCHC RDW Plt Count Add Manual Diff Total Counted Seg Neuts % (Manual) Band Neutrophils % Lymphocytes % (Manual) Reactive Lymphs % (Man) Monocytes % (Manual) Eosinophils % (Manual) Basophils % (Manual) Metamyelocytes % Myelocytes % Promyelocytes % Blast Cells % Nucleated RBC % Seg Neutrophils # Man Band Neutrophils # Lymphocytes # (Manual) Abs React Lymphs (Man) Monocytes # (Manual) Eosinophils # (Manual) Basophils # (Manual) Metamyelocytes # Myelocytes # Promyelocytes # Blast Cells # WBC Morphology Hypersegmented Neuts Hyposegmented Neuts Hypogranular Neuts Smudge Cells Toxic Granulation Toxic Vacuolation Dohle Bodies Pelger-Huet Anomaly Nomi Rods Platelet Estimate Clumped Platelets Plt Clumps, EDTA Large Platelets Giant Platelets Platelet Satelliting Plt Morphology Comment RBC Morphology Dimorphic RBCs Polychromasia Hypochromasia Poikilocytosis Anisocytosis Microcytosis Macrocytosis Spherocytes Pappenheimer Bodies Sickle Cells Target Cells Tear Drop Cells Ovalocytes Helmet Cells [place] Bodies Sylvia Rings [place] Cells Bite Cells Crenated Cell Elliptocytes Acanthocytes (Spur) Rouleaux Hemoglobin C Crystals Schistocytes Malaria parasites [place]et Bodies Hem Pathologist Commnt Sodium Potassium Chloride Carbon Dioxide Anion Gap BUN Creatinine Estimated GFR BUN/Creatinine Ratio Glucose POC Glucose 201 H 169 H Calcium Fluid Type Peritoneal Fluid Color Straw Fluid Appearance Cloudy Fluid WBC 2700 Fluid RBC 39 Fluid Seg Neutrophils 96.0 Fluid Lymphocytes 3.0 Fluid Reactive Lymphs 0 Fluid Monocytes 1.0 Fluid Eosinophils 0 Fluid Basophils 0 Random Vancomycin 07/15/18 07/16/18 07/16/18 23:09 00:22 01:52 WBC RBC Hgb Hct MCV MCH MCHC RDW Plt Count Add Manual Diff Total Counted Seg Neuts % (Manual) Band Neutrophils % Lymphocytes % (Manual) Reactive Lymphs % (Man) Monocytes % (Manual) Eosinophils % (Manual) Basophils % (Manual) Metamyelocytes % Myelocytes % Promyelocytes % Blast Cells % Nucleated RBC % Seg Neutrophils # Man Band Neutrophils # Lymphocytes # (Manual) Abs React Lymphs (Man) Monocytes # (Manual) Eosinophils # (Manual) Basophils # (Manual) Metamyelocytes # Myelocytes # Promyelocytes # Blast Cells # WBC Morphology Hypersegmented Neuts Hyposegmented Neuts Hypogranular Neuts Smudge Cells Toxic Granulation Toxic Vacuolation Dohle Bodies Pelger-Huet Anomaly Nomi Rods Platelet Estimate Clumped Platelets Plt Clumps, EDTA Large Platelets Giant Platelets Platelet Satelliting Plt Morphology Comment RBC Morphology Dimorphic RBCs Polychromasia Hypochromasia Poikilocytosis Anisocytosis Microcytosis Macrocytosis Spherocytes Pappenheimer Bodies Sickle Cells Target Cells Tear Drop Cells Ovalocytes Helmet Cells [place] Bodies Sylvia Rings [place] Cells Bite Cells Crenated Cell Elliptocytes Acanthocytes (Spur) Rouleaux Hemoglobin C Crystals Schistocytes Malaria parasites [place] Bodies Hem Pathologist Commnt Sodium Potassium Chloride Carbon Dioxide Anion Gap BUN Creatinine Estimated GFR BUN/Creatinine Ratio Glucose 234 H POC Glucose < 40 L 203 H Calcium Fluid Type Fluid Color Fluid Appearance Fluid WBC Fluid RBC Fluid Seg Neutrophils Fluid Lymphocytes Fluid Reactive Lymphs Fluid Monocytes Fluid Eosinophils Fluid Basophils Random Vancomycin 07/16/18 07/16/18 07/16/18 04:22 05:12 05:12 WBC 14.0 H RBC 3.58 L Hgb 12.2 Hct 38.0 MCV 106 H MCH 34 H MCHC 32 RDW 15.2 Plt Count 254 Add Manual Diff Complete Total Counted 100 Seg Neuts % (Manual) 92.0 H Band Neutrophils % 2.0 Lymphocytes % (Manual) 4.0 L Reactive Lymphs % (Man) 0 Monocytes % (Manual) 2.0 Eosinophils % (Manual) 0 Basophils % (Manual) 0 Metamyelocytes % 0 Myelocytes % 0 Promyelocytes % 0 Blast Cells % 0 Nucleated RBC % Not Reportable Seg Neutrophils # Man 12.9 H Band Neutrophils # 0.3 Lymphocytes # (Manual) 0.6 L Abs React Lymphs (Man) 0.0 Monocytes # (Manual) 0.3 Eosinophils # (Manual) 0.0 Basophils # (Manual) 0.0 Metamyelocytes # 0.0 Myelocytes # 0.0 Promyelocytes # 0.0 Blast Cells # 0.0 WBC Morphology Not Reportable Hypersegmented Neuts Not Reportable Hyposegmented Neuts Not Reportable Hypogranular Neuts Not Reportable Smudge Cells Not Reportable Toxic Granulation Not Reportable Toxic Vacuolation Not Reportable Dohle Bodies Not Reportable Pelger-Huet Anomaly Not Reportable Nomi Rods Not Reportable Platelet Estimate Cons Clumped Platelets Not Reportable Plt Clumps, EDTA Not Reportable Large Platelets Few Giant Platelets Not Reportable Platelet Satelliting Not Reportable Plt Morphology Comment Not Reportable RBC Morphology Not Reportable Dimorphic RBCs Not Reportable Polychromasia Few Hypochromasia Not Reportable Poikilocytosis Not Reportable Anisocytosis Not Reportable Microcytosis Not Reportable Macrocytosis Not Reportable Spherocytes Not Reportable Pappenheimer Bodies Not Reportable Sickle Cells Not Reportable Target Cells Not Reportable Tear Drop Cells Not Reportable Ovalocytes Not Reportable Helmet Cells Not Reportable [place] Bodies Not Reportable Sylvia Rings Not Reportable [place] Cells Not Reportable Bite Cells Not Reportable Crenated Cell Not Reportable Elliptocytes Not Reportable Acanthocytes (Spur) Not Reportable Rouleaux Not Reportable Hemoglobin C Crystals Not Reportable Schistocytes Not Reportable Malaria parasites Not Reportable [place] Bodies Not Reportable Hem Pathologist Commnt No Sodium 130 L Potassium 2.9 L* Chloride 92.9 L Carbon Dioxide 24 Anion Gap 16 BUN 38 H Creatinine 6.8 H Estimated GFR 7 BUN/Creatinine Ratio 6 Glucose 194 H POC Glucose 194 H Calcium 8.4 Fluid Type Fluid Color Fluid Appearance Fluid WBC Fluid RBC Fluid Seg Neutrophils Fluid Lymphocytes Fluid Reactive Lymphs Fluid Monocytes Fluid Eosinophils Fluid Basophils Random Vancomycin 07/16/18 07/16/18 05:12 08:45 WBC RBC Hgb Hct MCV MCH MCHC RDW Plt Count Add Manual Diff Total Counted Seg Neuts % (Manual) Band Neutrophils % Lymphocytes % (Manual) Reactive Lymphs % (Man) Monocytes % (Manual) Eosinophils % (Manual) Basophils % (Manual) Metamyelocytes % Myelocytes % Promyelocytes % Blast Cells % Nucleated RBC % Seg Neutrophils # Man Band Neutrophils # Lymphocytes # (Manual) Abs React Lymphs (Man) Monocytes # (Manual) Eosinophils # (Manual) Basophils # (Manual) Metamyelocytes # Myelocytes # Promyelocytes # Blast Cells # WBC Morphology Hypersegmented Neuts Hyposegmented Neuts Hypogranular Neuts Smudge Cells Toxic Granulation Toxic Vacuolation Dohle Bodies Pelger-Huet Anomaly Nomi Rods Platelet Estimate Clumped Platelets Plt Clumps, EDTA Large Platelets Giant Platelets Platelet Satelliting Plt Morphology Comment RBC Morphology Dimorphic RBCs Polychromasia Hypochromasia Poikilocytosis Anisocytosis Microcytosis Macrocytosis Spherocytes Pappenheimer Bodies Sickle Cells Target Cells Tear Drop Cells Ovalocytes Helmet Cells [place] Bodies Sylvia Rings [place] Cells Bite Cells Crenated Cell Elliptocytes Acanthocytes (Spur) Rouleaux Hemoglobin C Crystals Schistocytes Malaria parasites [place] Bodies Hem Pathologist Commnt Sodium Potassium Chloride Carbon Dioxide Anion Gap BUN Creatinine Estimated GFR BUN/Creatinine Ratio Glucose POC Glucose 155 H Calcium Fluid Type Fluid Color Fluid Appearance Fluid WBC Fluid RBC Fluid Seg Neutrophils Fluid Lymphocytes Fluid Reactive Lymphs Fluid Monocytes Fluid Eosinophils Fluid Basophils Random Vancomycin 19 Medications & Allergies - Medications Allergies/Adverse Reactions: Allergies No Known Allergies Allergy (Verified 08/18/14 08:52) Home Medications: Home Medications Medication Instructions Recorded Confirmed Last Taken Type Calcitriol [Rocaltrol] 0.5 mcg PO QDAY 06/29/18 06/29/18 Unknown History Simvastatin [Zocor] 20 mg PO DAILY 06/29/18 06/29/18 Unknown History Apixaban [Eliquis] 5 mg PO Q12HR tablet 07/15/18 Unknown Rx Aspirin [Aspirin BABY CHEW TAB] 81 mg PO QDAY tab.chew 07/15/18 Unknown Rx AtorvaSTATin [Lipitor] 40 mg PO QHS tablet 07/15/18 Unknown Rx Cefepime/Ns 1 gm/100 ml 1 gm IV Q24HR 21 Days piggyback 07/15/18 Unknown Rx [Maxipime/Ns 1 gm/100 ml] Docusate Sodium [Colace CAP] 100 mg PO BID capsule 07/15/18 Unknown Rx Fludrocortisone [Florinef] 0.1 mg PO QDAY tablet 07/15/18 Unknown Rx Folic Acid [Folvite] 1 mg PO QDAY tablet 07/15/18 Unknown Rx Lactulose [Cephulac] 20 gm PO TID PRN oral.liqd 07/15/18 Unknown Rx Lispro Insulin [Humalog] 0 unit SUB-Q ACHS units 07/15/18 Unknown Rx Midodrine [Proamatine] 10 mg PO TID tablet 07/15/18 Unknown Rx Pantoprazole [Protonix TAB] 40 mg PO QDAY tablet 07/15/18 Unknown Rx Polyethylene Glycol 3350 [Miralax 17 gm PO QDAY powd.pack 07/15/18 Unknown Rx 3350] Sevelamer Carbonate [Renvela] 1,600 mg PO TIDWM tablet 07/15/18 Unknown Rx Active Medications: Generic Name Dose Route Start Last Admin Trade Name Freq PRN Reason Stop Dose Admin Acetaminophen 650 mg 07/15/18 12:55 07/15/18 13:53 Tylenol PO 650 mg Q4H PRN Administration Pain, Mild (1-3) Apixaban 5 mg 07/04/18 16:00 07/15/18 21:47 Eliquis PO 5 mg Q12HR DIANE Administration Protocol Aspirin 81 mg 06/29/18 13:00 07/15/18 10:28 Baby Aspirin PO 81 mg QDAY DIANE Administration Atorvastatin Calcium 40 mg 06/29/18 22:00 07/15/18 21:47 Lipitor PO 40 mg QHS DIANE Administration Calcitriol 0.5 mcg 06/29/18 13:00 07/15/18 10:27 Rocaltrol PO 0.5 mcg QDAY DIANE Administration Peritoneal Dialysis Solution 2 0 ml 07/16/18 00:00 07/15/18 23:36 ,000 ml/ Ceftazidime 1 gm/ IP 2,000 ml Heparin Sodium (Porcine) 1,000 Q24H DIANE Administration unit Peritoneal Dialysis Solution 2 0 ml 07/15/18 18:00 07/16/18 06:00 ,000 ml/ Heparin Sodium ( IP 2,000 ml Porcine) 1,000 unit 0600,1200,1800 DIANE Administration Docusate Sodium 100 mg 07/02/18 10:00 07/15/18 21:47 Colace PO 100 mg BID DIANE Administration Fludrocortisone Acetate 0.1 mg 07/15/18 14:00 07/15/18 13:52 Florinef PO 0.1 mg QDAY DIANE Administration Folic Acid 1 mg 07/10/18 14:00 07/15/18 10:27 Folvite PO 1 mg QDAY DIANE Administration Insulin Human Lispro 0 unit 06/29/18 22:00 07/16/18 10:05 Humalog SUB-Q Not Given ACHS [facility] Protocol Lactulose 20 gm 07/13/18 12:00 Cephulac PO TID PRN Constipation Lidocaine 1 each 06/29/18 13:00 07/15/18 10:28 Lidoderm 5% TD 1 each QDAY DIANE Administration Midodrine 10 mg 07/01/18 14:00 07/16/18 10:49 Proamatine PO 10 mg TID DIANE Administration Morphine Sulfate 2 mg 07/08/18 14:51 07/13/18 17:45 Morphine IV 2 mg Q4H PRN Administration Pain, Moderate (4-6) Pantoprazole Sodium 40 mg 07/08/18 10:00 07/15/18 10:27 Protonix PO 40 mg QDAY DIANE Administration Polyethylene Glycol 17 gm 07/02/18 10:00 07/15/18 10:28 Miralax 3350 PO 17 gm QDAY DIANE Administration Sevelamer Carbonate 1,600 mg 06/29/18 12:00 07/16/18 10:05 Renvela PO Not Given TIDWM DIANE
--- NOTE | 2018-07-16 12:52 | Event Note ---
Date: 07/16/18 Patient was discharged yesterday to subacute rehabilitation, but didn't go yesterday because nephrology wants the patient to have subacute rehab. Dr. Garcia discharge the patient and put the discharge summary. Nothing is changed except patient had a PermCath.
--- NOTE | 2018-07-16 13:19 | Consultation ---
History of Present Illness Consult date: 07/16/18 Reason for consult: other (PD catheter removal) Chief complaint: Infected PD catheter - History of present illness History of present illness: 67 y/o female patient on PD dyalisis with a infected PD catheter. Surgery consulted for removal. She has had a Permacath placed as well for HD. I have seen her and interviewed her. She is adamant that she does not want the PD catheter out today, although she says she does want it out later this week. I have explained the risks associated with delaying the removal. She is willing to accept those risks. Past History Past Medical History: diabetes, ESRD (on peritoneal dialysis), hypertension, hyperlipidemia Past Surgical History: Other (hip and knee surgery and PD catheter) Social history: no significant social history. denies: smoking, alcohol abuse, prescription drug abuse Family history: no significant family history Medications and Allergies Allergies Allergy/AdvReac Type Severity Reaction Status Date / Time No Known Allergies Allergy Verified 08/18/14 08:52 Home Medications Medication Instructions Recorded Confirmed Last Taken Type Calcitriol [Rocaltrol] 0.5 mcg PO QDAY 06/29/18 06/29/18 Unknown History Simvastatin [Zocor] 20 mg PO DAILY 06/29/18 06/29/18 Unknown History Apixaban [Eliquis] 5 mg PO Q12HR tablet 07/15/18 Unknown Rx Aspirin [Aspirin BABY CHEW TAB] 81 mg PO QDAY tab.chew 07/15/18 Unknown Rx AtorvaSTATin [Lipitor] 40 mg PO QHS tablet 07/15/18 Unknown Rx Cefepime/Ns 1 gm/100 ml 1 gm IV Q24HR 21 Days piggyback 07/15/18 Unknown Rx [Maxipime/Ns 1 gm/100 ml] Docusate Sodium [Colace CAP] 100 mg PO BID capsule 07/15/18 Unknown Rx Fludrocortisone [Florinef] 0.1 mg PO QDAY tablet 07/15/18 Unknown Rx Folic Acid [Folvite] 1 mg PO QDAY tablet 07/15/18 Unknown Rx Lactulose [Cephulac] 20 gm PO TID PRN oral.liqd 07/15/18 Unknown Rx Lispro Insulin [Humalog] 0 unit SUB-Q ACHS units 07/15/18 Unknown Rx Midodrine [Proamatine] 10 mg PO TID tablet 07/15/18 Unknown Rx Pantoprazole [Protonix TAB] 40 mg PO QDAY tablet 07/15/18 Unknown Rx Polyethylene Glycol 3350 [Miralax 17 gm PO QDAY powd.pack 07/15/18 Unknown Rx 3350] Sevelamer Carbonate [Renvela] 1,600 mg PO TIDWM tablet 07/15/18 Unknown Rx Active Meds: Active Medications Acetaminophen (Tylenol) 650 mg PO Q4H PRN PRN Reason: Pain, Mild (1-3) Last Admin: 07/15/18 13:53 Dose: 650 mg Documented by: Apixaban (Eliquis) 5 mg PO Q12HR [facility]; Protocol Last Admin: 07/15/18 21:47 Dose: 5 mg Documented by: Aspirin (Baby Aspirin) 81 mg PO QDAY [facility] Last Admin: 07/15/18 10:28 Dose: 81 mg Documented by: Atorvastatin Calcium (Lipitor) 40 mg PO QHS [facility] Last Admin: 07/15/18 21:47 Dose: 40 mg Documented by: Calcitriol (Rocaltrol) 0.5 mcg PO QDAY [facility] Last Admin: 07/15/18 10:27 Dose: 0.5 mcg Documented by: Peritoneal Dialysis Solution 2 ,000 ml/ Ceftazidime 1 gm/Heparin Sodium (Porcine) 1,000 unit 0 ml IP Q24H [facility] Last Admin: 07/15/18 23:36 Dose: 2,000 ml Documented by: Peritoneal Dialysis Solution 2 ,000 ml/ Heparin Sodium ( Porcine) 1,000 unit 0 ml IP 0600,1200,1800 [facility] Last Admin: 07/16/18 06:00 Dose: 2,000 ml Documented by: Docusate Sodium (Colace) 100 mg PO BID [facility] Last Admin: 07/15/18 21:47 Dose: 100 mg Documented by: Fludrocortisone Acetate (Florinef) 0.1 mg PO QDAY [facility] Last Admin: 07/15/18 13:52 Dose: 0.1 mg Documented by: Folic Acid (Folvite) 1 mg PO QDAY [facility] Last Admin: 07/15/18 10:27 Dose: 1 mg Documented by: Insulin Human Lispro (Humalog) 0 unit SUB-Q [facility]; Protocol Last Admin: 07/16/18 13:01 Dose: Not Given Documented by: Lactulose (Cephulac) 20 gm PO TID PRN PRN Reason: Constipation Lidocaine (Lidoderm 5%) 1 each TD QDAY [facility] Last Admin: 07/15/18 10:28 Dose: 1 each Documented by: Midodrine (Proamatine) 10 mg PO TID [facility] Last Admin: 07/16/18 10:49 Dose: 10 mg Documented by: Morphine Sulfate (Morphine) 2 mg IV Q4H PRN PRN Reason: Pain, Moderate (4-6) Last Admin: 07/13/18 17:45 Dose: 2 mg Documented by: Pantoprazole Sodium (Protonix) 40 mg PO QDAY [facility] Last Admin: 07/15/18 10:27 Dose: 40 mg Documented by: Polyethylene Glycol (Miralax 3350) 17 gm PO QDAY [facility] Last Admin: 07/15/18 10:28 Dose: 17 gm Documented by: Sevelamer Carbonate (Renvela) 1,600 mg PO TIDWM [facility] Last Admin: 07/16/18 13:01 Dose: Not Given Documented by: Review of Systems All systems: negative (None) Exam Vital Signs BP 97/42 06/28/18 18:49 - General physical appearance Positive: no distress, no pain, chronically ill, obese - Eyes Positive: PERRL - ENT Positive: decreased hearing - Neck Positive: no masses, trachea midline - Respiratory Positive: normal expansion, normal respiratory effort - Cardiovascular Rhythm: regular - Extremities Extremities: no ischemia, No edema - Breasts Breasts: deferred - Abdomen Abdomen: Present: soft, other (PD catheter with exposed cuff.). Absent: tender, guarding, rigid - Genitourinary Male Genitourinary: deferred Female Genitourinary: deferred - Integumentary no rash - Neurologic Neurologic: alert and oriented to time, place and person - Musculoskeletal normal gait - Psychiatric Psychiatric: appropriate mood/affect Results - Labs 07/16/18 05:12 07/16/18 05:12 Abnormal lab results 07/15/18 07/15/18 07/16/18 Range/Units 15:44 23:09 00:22 WBC (4.5-11.0) K/mm3 RBC (3.65-5.03) M/mm3 MCV (79-97) fl MCH (28-32) pg Seg Neuts % (Manual) (40.0-70.0) % Lymphocytes % (Manual) (13.4-35.0) % Seg Neutrophils # Man (1.8-7.7) K/mm3 Lymphocytes # (Manual) (1.2-5.4) K/mm3 Sodium (137-145) mmol/L Potassium (3.6-5.0) mmol/L Chloride (98-107) mmol/L BUN (7-17) mg/dL Creatinine (0.7-1.2) mg/dL Glucose 234 H (65-100) mg/dL POC Glucose 169 H < 40 L (70-105) 07/16/18 07/16/18 07/16/18 Range/Units 01:52 04:22 05:12 WBC 14.0 H (4.5-11.0) K/mm3 RBC 3.58 L (3.65-5.03) M/mm3 MCV 106 H (79-97) fl MCH 34 H (28-32) pg Seg Neuts % (Manual) 92.0 H (40.0-70.0) % Lymphocytes % (Manual) 4.0 L (13.4-35.0) % Seg Neutrophils # Man 12.9 H (1.8-7.7) K/mm3 Lymphocytes # (Manual) 0.6 L (1.2-5.4) K/mm3 Sodium (137-145) mmol/L Potassium (3.6-5.0) mmol/L Chloride (98-107) mmol/L BUN (7-17) mg/dL Creatinine (0.7-1.2) mg/dL Glucose (65-100) mg/dL POC Glucose 203 H 194 H (70-105) 07/16/18 07/16/18 07/16/18 Range/Units 05:12 08:45 12:22 WBC (4.5-11.0) K/mm3 RBC (3.65-5.03) M/mm3 MCV (79-97) fl MCH (28-32) pg Seg Neuts % (Manual) (40.0-70.0) % Lymphocytes % (Manual) (13.4-35.0) % Seg Neutrophils # Man (1.8-7.7) K/mm3 Lymphocytes # (Manual) (1.2-5.4) K/mm3 Sodium 130 L (137-145) mmol/L Potassium 2.9 L* (3.6-5.0) mmol/L Chloride 92.9 L (98-107) mmol/L BUN 38 H (7-17) mg/dL Creatinine 6.8 H (0.7-1.2) mg/dL Glucose 194 H (65-100) mg/dL POC Glucose 155 H 208 H (70-105) Diabetes panel 07/16/18 07/16/18 Range/Units 00:22 05:12 Sodium 130 L (137-145) mmol/L Potassium 2.9 L* (3.6-5.0) mmol/L Chloride 92.9 L (98-107) mmol/L Carbon Dioxide 24 (22-30) mmol/L BUN 38 H (7-17) mg/dL Creatinine 6.8 H (0.7-1.2) mg/dL Glucose 234 H 194 H (65-100) mg/dL Calcium 8.4 (8.4-10.2) mg/dL Calcium panel 07/16/18 Range/Units 05:12 Calcium 8.4 (8.4-10.2) mg/dL Pituitary panel 07/16/18 07/16/18 Range/Units 00:22 05:12 Sodium 130 L (137-145) mmol/L Potassium 2.9 L* (3.6-5.0) mmol/L Chloride 92.9 L (98-107) mmol/L Carbon Dioxide 24 (22-30) mmol/L BUN 38 H (7-17) mg/dL Creatinine 6.8 H (0.7-1.2) mg/dL Glucose 234 H 194 H (65-100) mg/dL Calcium 8.4 (8.4-10.2) mg/dL Adrenal panel 07/16/18 07/16/18 Range/Units 00:22 05:12 Sodium 130 L (137-145) mmol/L Potassium 2.9 L* (3.6-5.0) mmol/L Chloride 92.9 L (98-107) mmol/L Carbon Dioxide 24 (22-30) mmol/L BUN 38 H (7-17) mg/dL Creatinine 6.8 H (0.7-1.2) mg/dL Glucose 234 H 194 H (65-100) mg/dL Calcium 8.4 (8.4-10.2) mg/dL Assessment and Plan Patient would benefit from PD catheter removal. She is declining to have this done at the time. Once she is agreeabale, please do let us know.
[2018-07-16] MEDS: FOLVITE PO SCH (14:41)
[2018-07-16] MEDS: ELIQUIS PO SCH ×2 (14:41→22:22)
[2018-07-16] MEDS: BABY ASPIRIN PO SCH (14:41)
[2018-07-16] MEDS: PROTONIX PO SCH (14:41)
[2018-07-16] MEDS: COLACE PO SCH ×2 (14:42→22:24)
[2018-07-16] MEDS: MIRALAX 3350 PO SCH (14:42)
[2018-07-16] MEDS: LIDODERM 5% TD SCH (14:50)
[2018-07-16] MEDS: ROCALTROL PO SCH (14:50)
[2018-07-16] MEDS: FLORINEF PO SCH (14:53)
--- NOTE | 2018-07-16 15:04 | Progress Note ---
Assessment and Plan Impression: * End stage renal disease on PD * Catheter associated peritonitis * LE DVT * Elevated troponin --TTE: LVEF 55-60% --Strest shannon: nml perfusion, nml LV function * Hypokalemia * Secondary hyperparathyroidism * Erythrocytosis, resolved - ?secondary to hemoconcentration vs other --Renal u/s: no mass, small bilateral cysts Plan: * Patient is s/p permcath placement * Start HD tomorrow - MWF * UF as tolerated * Surgery note reviewed. Patient declined PD catheter removal; lengthy discussion with patient; she is now agreeable - notified Dr. Zavala * Continue abx; changed IP Fortaz to IV Cefepime as PD orders discontinued; remains on IV Vanco * Anticoagulation per primary team * Replete lytes prn * Renal diet * Dose medications for renal function Subjective Date of service: 07/16/18 Principal diagnosis: dvt Objective - Vital Signs Vital signs: Vital Signs - 12hr 07/16/18 07/16/18 08:43 13:19 Temperature 99.1 F 98.7 F Pulse Rate 104 H 110 H Respiratory 20 18 Rate Blood Pressure 102/64 94/55 O2 Sat by Pulse 99 100 Oximetry - General Appearance General appearance: well-developed, well-nourished EENT: ATNC Respiratory: Present: Clear to Ascultation Cardiology: regular, S1S2 Gastrointestinal: normal, tenderness, no distended Integumentary: no rash, warm and dry Neurologic: no focal deficit Musculoskeletal: other (no edema) Psychiatric: cooperative - Lab 07/16/18 05:12 07/16/18 05:12 Most recent lab results Calcium 8.4 mg/dL (8.4-10.2) 07/16/18 05:12 Medications & Allergies - Medications Allergies/Adverse Reactions: Allergies No Known Allergies Allergy (Verified 08/18/14 08:52) Home Medications: Home Medications Medication Instructions Recorded Confirmed Last Taken Type Calcitriol [Rocaltrol] 0.5 mcg PO QDAY 06/29/18 06/29/18 Unknown History Simvastatin [Zocor] 20 mg PO DAILY 06/29/18 06/29/18 Unknown History Apixaban [Eliquis] 5 mg PO Q12HR tablet 07/15/18 Unknown Rx Aspirin [Aspirin BABY CHEW TAB] 81 mg PO QDAY tab.chew 07/15/18 Unknown Rx AtorvaSTATin [Lipitor] 40 mg PO QHS tablet 07/15/18 Unknown Rx Cefepime/Ns 1 gm/100 ml 1 gm IV Q24HR 21 Days piggyback 07/15/18 Unknown Rx [Maxipime/Ns 1 gm/100 ml] Docusate Sodium [Colace CAP] 100 mg PO BID capsule 07/15/18 Unknown Rx Fludrocortisone [Florinef] 0.1 mg PO QDAY tablet 07/15/18 Unknown Rx Folic Acid [Folvite] 1 mg PO QDAY tablet 07/15/18 Unknown Rx Lactulose [Cephulac] 20 gm PO TID PRN oral.liqd 07/15/18 Unknown Rx Lispro Insulin [Humalog] 0 unit SUB-Q ACHS units 07/15/18 Unknown Rx Midodrine [Proamatine] 10 mg PO TID tablet 07/15/18 Unknown Rx Pantoprazole [Protonix TAB] 40 mg PO QDAY tablet 07/15/18 Unknown Rx Polyethylene Glycol 3350 [Miralax 17 gm PO QDAY powd.pack 07/15/18 Unknown Rx 3350] Sevelamer Carbonate [Renvela] 1,600 mg PO TIDWM tablet 07/15/18 Unknown Rx Active Medications: Generic Name Dose Route Start Last Admin Trade Name Freq PRN Reason Stop Dose Admin Acetaminophen 650 mg 07/15/18 12:55 07/15/18 13:53 Tylenol PO 650 mg Q4H PRN Administration Pain, Mild (1-3) Apixaban 5 mg 07/04/18 16:00 07/16/18 14:41 Eliquis PO 5 mg Q12HR [facility] Administration Protocol Aspirin 81 mg 06/29/18 13:00 07/16/18 14:41 Baby Aspirin PO 81 mg QDAY [facility] Administration Atorvastatin Calcium 40 mg 06/29/18 22:00 07/15/18 21:47 Lipitor PO 40 mg QHS [facility] Administration Calcitriol 0.5 mcg 06/29/18 13:00 07/16/18 14:50 Rocaltrol PO 0.5 mcg QDAY [facility] Administration Peritoneal Dialysis Solution 2 0 ml 07/16/18 00:00 07/15/18 23:36 ,000 ml/ Ceftazidime 1 gm/ IP 2,000 ml Heparin Sodium (Porcine) 1,000 Q24H [facility] Administration unit Peritoneal Dialysis Solution 2 0 ml 07/15/18 18:00 07/16/18 11:51 ,000 ml/ Heparin Sodium ( IP Not Given Porcine) 1,000 unit 0600,1200,1800 [facility] Docusate Sodium 100 mg 07/02/18 10:00 07/16/18 14:42 Colace PO 100 mg BID [facility] Administration Fludrocortisone Acetate 0.1 mg 07/15/18 14:00 07/16/18 14:53 Florinef PO 0.1 mg QDAY [facility] Administration Folic Acid 1 mg 07/10/18 14:00 07/16/18 14:41 Folvite PO 1 mg QDAY [facility] Administration Insulin Human Lispro 0 unit 06/29/18 22:00 07/16/18 13:01 Humalog SUB-Q Not Given ACHS [facility] Protocol Lactulose 20 gm 07/13/18 12:00 Cephulac PO TID PRN Constipation Lidocaine 1 each 06/29/18 13:00 07/16/18 14:50 Lidoderm 5% TD 1 each QDAY [facility] Administration Midodrine 10 mg 07/01/18 14:00 07/16/18 14:41 Proamatine PO 10 mg TID [facility] Administration Morphine Sulfate 2 mg 07/08/18 14:51 07/13/18 17:45 Morphine IV 2 mg Q4H PRN Administration Pain, Moderate (4-6) Pantoprazole Sodium 40 mg 07/08/18 10:00 07/16/18 14:41 Protonix PO 40 mg QDAY [facility] Administration Polyethylene Glycol 17 gm 07/02/18 10:00 07/16/18 14:42 Miralax 3350 PO 17 gm QDAY [facility] Administration Sevelamer Carbonate 1,600 mg 06/29/18 12:00 07/16/18 13:01 Renvela PO Not Given TIDWM [facility]
[2018-07-16] MEDS ORDERED: HEPARIN IV PRN (18:52)
[2018-07-16] MEDS ORDERED: NACL 0.9% 100 ML IV PRN (18:52)
--- NOTE | 2018-07-16 18:55 | Progress Note ---
Assessment and Plan Patient awake.Patient is on room air.O2 saturation 100% . Patient Obese. Patient running low grade temp at times and has leukocytosis.Patient receiving ceftazedem in peritoneal dialysis fluid.Having excessive day time sleepiness. Recommend sleep study as out patient.Venous doppler studies reported extensive left leg DVT.Patient is on Apixaban. - Patient Problems (1) NSTEMI (non-ST elevated myocardial infarction) Current Visit: Yes Status: Acute Plan to address problem: Management as per cardiology. (2) HTN (hypertension) Current Visit: Yes Status: Acute Plan to address problem: Management as per primary care. (3) Diabetes Current Visit: Yes Status: Chronic Plan to address problem: Mangement as per primary care. (4) ESRD on peritoneal dialysis Current Visit: Yes Status: Acute Plan to address problem: Management as per Nephrology. Patient is on peritoneal dialysis. (5) Elevated d-dimer Current Visit: Yes Status: Acute Plan to address problem: Perfusion lung scan reported low probability for pulmonary emboli. Venous doppler studies of legs reported extensive left leg DVT.Patient is on Apixaban (6) Obesity (BMI 30.0-34.9) Current Visit: Yes Status: Acute Plan to address problem: Diet and exercise to loose weight. Sleep study as out patient. (7) DVT (deep venous thrombosis) Current Visit: Yes Status: Acute Qualifiers: DVT location: lower extremity Chronicity: acute Plan to address problem: Patients venous doppler studies reported extensive left leg DVT. Patient is on Apixaban. Subjective Date of service: 07/16/18 Principal diagnosis: dvt leg Interval history: Patient awake.Patient is on room air.O2 saturation 100% . Patient Obese. Patient running low grade temp at times and has leukocytosis.Patient receiving ceftazedem in peritoneal dialysis fluid.Having excessive day time sleepiness. Recommend sleep study as out patient.Venous doppler studies reported extensive left leg DVT.Patient is on Apixaban. Objective Vital Signs - 12hr 07/16/18 07/16/18 08:43 13:19 Temperature 99.1 F 98.7 F Pulse Rate 104 H 110 H Respiratory 20 18 Rate Blood Pressure 102/64 94/55 O2 Sat by Pulse 99 100 Oximetry Constitutional: no acute distress, alert Eyes: non-icteric ENT: oropharynx moist, other (mallampati 3) Neck: supple, no lymphadenopathy, no JVD, other (large neck circumference) Effort: normal Ascultation: Bilateral: diminished breath sounds, rhonchi (scant in bases) Percussion: Bilateral: not dull Cardiovascular: regular rate and rhythm, other (No R/M) Gastrointestinal: normoactive bowel sounds, soft, non-distended, other (No HSM, PD cathetr, clean dry site, mild lower abdominal tenderness, no rebound) Integumentary: normal Extremities: no cyanosis, no edema, pulses normal, no ischemia or petechiae Neurologic: normal mental status, non-focal exam (grossly), pupils equal and round, motor strength normal and Psychiatric: mood appropriate, affect normal CBC and BMP: 07/16/18 05:12 07/16/18 05:12 ABG, PT/INR, D-dimer: PT/INR, D-dimer PT 13.6 Sec. (12.2-14.9) 07/03/18 12:39 INR 0.98 (0.87-1.13) 07/03/18 12:39 D-Dimer > 28410 ng/mlDDU (0-234) H 06/28/18 22:26 Abnormal lab findings: Abnormal Labs 06/28/18 06/28/18 06/28/18 10:38 20:54 20:54 WBC 24.8 H RBC Hgb 16.6 H Hct 50.3 H MCV 107 H MCH 35 H RDW 15.6 H Plt Count Lymph % (Auto) Lymph # Baso # Seg Neutrophils % Seg Neuts % (Manual) 95.0 H Lymphocytes % (Manual) 3.0 L Nucleated RBC % Seg Neutrophils # Seg Neutrophils # Man 23.6 H Lymphocytes # (Manual) 0.7 L Monocytes # (Manual) D-Dimer Heparin Anti-Xa Level Sodium 131 L Potassium Chloride 89.6 L Carbon Dioxide 19 L BUN 29 H Creatinine 9.3 H Glucose 174 H POC Glucose Lactic Acid Calcium ALT 5 L Troponin T 0.073 H C-Reactive Protein Albumin 3.2 L Triglycerides 194 H HDL Cholesterol 68 H Vitamin B12 Folate 06/28/18 06/29/18 06/29/18 22:26 12:18 13:30 WBC RBC Hgb Hct MCV MCH RDW Plt Count Lymph % (Auto) Lymph # Baso # Seg Neutrophils % Seg Neuts % (Manual) Lymphocytes % (Manual) Nucleated RBC % Seg Neutrophils # Seg Neutrophils # Man Lymphocytes # (Manual) Monocytes # (Manual) D-Dimer > 53094 H Heparin Anti-Xa Level Sodium Potassium Chloride Carbon Dioxide BUN Creatinine Glucose POC Glucose 168 H Lactic Acid Calcium ALT Troponin T 0.073 H C-Reactive Protein Albumin Triglycerides HDL Cholesterol Vitamin B12 Folate 06/29/18 06/29/18 06/29/18 13:30 14:11 16:36 WBC 19.8 H RBC Hgb 14.7 H Hct 45.4 H MCV 108 H MCH 35 H RDW 15.9 H Plt Count Lymph % (Auto) Lymph # Baso # Seg Neutrophils % Seg Neuts % (Manual) Lymphocytes % (Manual) Nucleated RBC % Seg Neutrophils # Seg Neutrophils # Man Lymphocytes # (Manual) Monocytes # (Manual) D-Dimer Heparin Anti-Xa Level Sodium 133 L Potassium Chloride 91.7 L Carbon Dioxide 20 L BUN 33 H Creatinine 9.9 H Glucose 196 H POC Glucose 165 H Lactic Acid Calcium ALT Troponin T C-Reactive Protein Albumin Triglycerides HDL Cholesterol Vitamin B12 Folate 06/29/18 06/29/18 06/30/18 20:37 22:01 04:49 WBC 14.8 H RBC Hgb Hct MCV 106 H MCH 35 H RDW 15.5 H Plt Count Lymph % (Auto) Lymph # Baso # Seg Neutrophils % Seg Neuts % (Manual) 90.0 H Lymphocytes % (Manual) 5.0 L Nucleated RBC % Seg Neutrophils # Seg Neutrophils # Man 13.3 H Lymphocytes # (Manual) 0.7 L Monocytes # (Manual) D-Dimer Heparin Anti-Xa Level Sodium Potassium Chloride Carbon Dioxide BUN Creatinine Glucose POC Glucose 202 H Lactic Acid Calcium ALT Troponin T 0.077 H C-Reactive Protein Albumin Triglycerides HDL Cholesterol Vitamin B12 Folate 06/30/18 06/30/18 06/30/18 04:49 08:27 12:17 WBC RBC Hgb Hct MCV MCH RDW Plt Count Lymph % (Auto) Lymph # Baso # Seg Neutrophils % Seg Neuts % (Manual) Lymphocytes % (Manual) Nucleated RBC % Seg Neutrophils # Seg Neutrophils # Man Lymphocytes # (Manual) Monocytes # (Manual) D-Dimer Heparin Anti-Xa Level Sodium 134 L Potassium 3.5 L Chloride 94.7 L Carbon Dioxide BUN 30 H Creatinine 8.8 H Glucose 182 H POC Glucose 170 H 145 H Lactic Acid Calcium 7.9 L ALT Troponin T C-Reactive Protein Albumin Triglycerides HDL Cholesterol Vitamin B12 Folate 06/30/18 06/30/18 07/01/18 16:44 22:06 07:21 WBC 11.8 H RBC 3.32 L Hgb Hct MCV 105 H MCH 35 H RDW 15.5 H Plt Count 125 L Lymph % (Auto) Lymph # Baso # Seg Neutrophils % Seg Neuts % (Manual) Lymphocytes % (Manual) Nucleated RBC % Seg Neutrophils # Seg Neutrophils # Man Lymphocytes # (Manual) Monocytes # (Manual) D-Dimer Heparin Anti-Xa Level Sodium Potassium Chloride Carbon Dioxide BUN Creatinine Glucose POC Glucose 155 H 174 H Lactic Acid Calcium ALT Troponin T C-Reactive Protein Albumin Triglycerides HDL Cholesterol Vitamin B12 Folate 07/01/18 07/01/18 07/01/18 07:21 08:22 11:38 WBC RBC Hgb Hct MCV MCH RDW Plt Count Lymph % (Auto) Lymph # Baso # Seg Neutrophils % Seg Neuts % (Manual) Lymphocytes % (Manual) Nucleated RBC % Seg Neutrophils # Seg Neutrophils # Man Lymphocytes # (Manual) Monocytes # (Manual) D-Dimer Heparin Anti-Xa Level Sodium 134 L Potassium Chloride 95.9 L Carbon Dioxide BUN 31 H Creatinine 8.4 H Glucose 151 H POC Glucose 117 H 166 H Lactic Acid Calcium 7.8 L ALT Troponin T C-Reactive Protein Albumin Triglycerides HDL Cholesterol Vitamin B12 Folate 07/01/18 07/01/18 07/01/18 13:32 13:32 16:27 WBC RBC Hgb Hct MCV MCH RDW Plt Count Lymph % (Auto) Lymph # Baso # Seg Neutrophils % Seg Neuts % (Manual) Lymphocytes % (Manual) Nucleated RBC % Seg Neutrophils # Seg Neutrophils # Man Lymphocytes # (Manual) Monocytes # (Manual) D-Dimer Heparin Anti-Xa Level Sodium Potassium Chloride Carbon Dioxide BUN Creatinine Glucose POC Glucose 149 H Lactic Acid 2.20 H* Calcium ALT Troponin T C-Reactive Protein 7.40 H Albumin Triglycerides HDL Cholesterol Vitamin B12 Folate 07/01/18 07/01/18 07/02/18 19:35 21:36 05:22 WBC RBC Hgb Hct MCV MCH RDW Plt Count Lymph % (Auto) Lymph # Baso # Seg Neutrophils % Seg Neuts % (Manual) Lymphocytes % (Manual) Nucleated RBC % Seg Neutrophils # Seg Neutrophils # Man Lymphocytes # (Manual) Monocytes # (Manual) D-Dimer Heparin Anti-Xa Level Sodium Potassium Chloride Carbon Dioxide BUN Creatinine Glucose POC Glucose 129 H Lactic Acid 2.60 H* 2.20 H* Calcium ALT Troponin T C-Reactive Protein Albumin Triglycerides HDL Cholesterol Vitamin B12 Folate 07/02/18 07/02/18 07/02/18 05:22 05:22 07:11 WBC 12.6 H RBC 3.51 L Hgb Hct MCV 105 H MCH 35 H RDW Plt Count 132 L Lymph % (Auto) Lymph # Baso # Seg Neutrophils % Seg Neuts % (Manual) 92.0 H Lymphocytes % (Manual) 2.0 L Nucleated RBC % Seg Neutrophils # Seg Neutrophils # Man 11.6 H Lymphocytes # (Manual) 0.3 L Monocytes # (Manual) D-Dimer Heparin Anti-Xa Level Sodium 131 L Potassium 3.3 L Chloride 93.1 L Carbon Dioxide BUN 31 H Creatinine 7.5 H Glucose 228 H POC Glucose 215 H Lactic Acid Calcium 7.7 L ALT Troponin T C-Reactive Protein Albumin Triglycerides HDL Cholesterol Vitamin B12 Folate 07/02/18 07/02/18 07/03/18 15:35 21:56 10:56 WBC RBC Hgb Hct MCV MCH RDW Plt Count Lymph % (Auto) Lymph # Baso # Seg Neutrophils % Seg Neuts % (Manual) Lymphocytes % (Manual) Nucleated RBC % Seg Neutrophils # Seg Neutrophils # Man Lymphocytes # (Manual) Monocytes # (Manual) D-Dimer Heparin Anti-Xa Level Sodium 130 L Potassium Chloride 91.6 L Carbon Dioxide BUN 33 H Creatinine 7.8 H Glucose POC Glucose 123 H 135 H Lactic Acid Calcium 7.7 L ALT Troponin T C-Reactive Protein Albumin Triglycerides HDL Cholesterol Vitamin B12 Folate 07/03/18 07/03/18 07/03/18 11:00 21:03 22:06 WBC 11.9 H RBC 3.59 L Hgb Hct MCV 103 H MCH 35 H RDW Plt Count Lymph % (Auto) Lymph # Baso # Seg Neutrophils % Seg Neuts % (Manual) 94.0 H Lymphocytes % (Manual) 5.0 L Nucleated RBC % Seg Neutrophils # Seg Neutrophils # Man 11.2 H Lymphocytes # (Manual) 0.6 L Monocytes # (Manual) D-Dimer Heparin Anti-Xa Level 0.28 L Sodium Potassium Chloride Carbon Dioxide BUN Creatinine Glucose POC Glucose 177 H Lactic Acid Calcium ALT Troponin T C-Reactive Protein Albumin Triglycerides HDL Cholesterol Vitamin B12 Folate 07/04/18 07/04/18 07/04/18 01:08 05:22 05:22 WBC 13.1 H RBC Hgb Hct MCV 104 H MCH 35 H RDW Plt Count 139 L Lymph % (Auto) 5.0 L Lymph # 0.7 L Baso # 0.2 H Seg Neutrophils % 87.7 H Seg Neuts % (Manual) Lymphocytes % (Manual) Nucleated RBC % Seg Neutrophils # 11.5 H Seg Neutrophils # Man Lymphocytes # (Manual) Monocytes # (Manual) D-Dimer Heparin Anti-Xa Level Sodium 132 L Potassium 3.1 L Chloride 92.4 L Carbon Dioxide BUN 30 H Creatinine 7.4 H Glucose 113 H POC Glucose 106 H Lactic Acid Calcium 7.8 L ALT Troponin T C-Reactive Protein Albumin Triglycerides HDL Cholesterol Vitamin B12 Folate 07/04/18 07/04/18 07/04/18 05:22 12:15 14:59 WBC RBC Hgb Hct MCV MCH RDW Plt Count Lymph % (Auto) Lymph # Baso # Seg Neutrophils % Seg Neuts % (Manual) Lymphocytes % (Manual) Nucleated RBC % Seg Neutrophils # Seg Neutrophils # Man Lymphocytes # (Manual) Monocytes # (Manual) D-Dimer Heparin Anti-Xa Level 1.31 H 1.70 H Sodium Potassium Chloride Carbon Dioxide BUN Creatinine Glucose POC Glucose 200 H Lactic Acid Calcium ALT Troponin T C-Reactive Protein Albumin Triglycerides HDL Cholesterol Vitamin B12 Folate 07/04/18 07/05/18 07/05/18 20:56 06:17 06:17 WBC RBC 3.51 L Hgb Hct MCV 104 H MCH 35 H RDW Plt Count Lymph % (Auto) 7.8 L Lymph # 0.7 L Baso # Seg Neutrophils % 85.2 H Seg Neuts % (Manual) Lymphocytes % (Manual) Nucleated RBC % Seg Neutrophils # Seg Neutrophils # Man Lymphocytes # (Manual) Monocytes # (Manual) D-Dimer Heparin Anti-Xa Level Sodium 132 L Potassium 3.1 L Chloride 92.7 L Carbon Dioxide BUN 29 H Creatinine 7.3 H Glucose 115 H POC Glucose 133 H Lactic Acid Calcium 7.9 L ALT Troponin T C-Reactive Protein Albumin Triglycerides HDL Cholesterol Vitamin B12 Folate 07/05/18 07/06/18 07/06/18 23:47 06:53 06:53 WBC RBC 3.47 L Hgb Hct MCV 104 H MCH 35 H RDW Plt Count Lymph % (Auto) Lymph # Baso # Seg Neutrophils % Seg Neuts % (Manual) 93.0 H Lymphocytes % (Manual) 2.0 L Nucleated RBC % Seg Neutrophils # Seg Neutrophils # Man 8.6 H Lymphocytes # (Manual) 0.2 L Monocytes # (Manual) D-Dimer Heparin Anti-Xa Level Sodium 132 L Potassium 3.2 L Chloride 94.5 L Carbon Dioxide BUN 32 H Creatinine 8.7 H Glucose 106 H POC Glucose 112 H Lactic Acid Calcium 7.8 L ALT Troponin T C-Reactive Protein Albumin Triglycerides HDL Cholesterol Vitamin B12 Folate 07/06/18 07/06/18 07/07/18 16:23 22:56 07:56 WBC RBC Hgb Hct MCV MCH RDW Plt Count Lymph % (Auto) Lymph # Baso # Seg Neutrophils % Seg Neuts % (Manual) Lymphocytes % (Manual) Nucleated RBC % Seg Neutrophils # Seg Neutrophils # Man Lymphocytes # (Manual) Monocytes # (Manual) D-Dimer Heparin Anti-Xa Level Sodium Potassium Chloride Carbon Dioxide BUN Creatinine Glucose POC Glucose 126 H 139 H 181 H Lactic Acid Calcium ALT Troponin T C-Reactive Protein Albumin Triglycerides HDL Cholesterol Vitamin B12 Folate 07/07/18 07/07/18 07/07/18 09:35 09:35 12:52 WBC RBC Hgb Hct MCV 105 H MCH 35 H RDW Plt Count Lymph % (Auto) 6.3 L Lymph # 0.6 L Baso # Seg Neutrophils % 87.9 H Seg Neuts % (Manual) Lymphocytes % (Manual) Nucleated RBC % Seg Neutrophils # 8.2 H Seg Neutrophils # Man Lymphocytes # (Manual) Monocytes # (Manual) D-Dimer Heparin Anti-Xa Level Sodium 130 L Potassium 3.4 L Chloride 90.3 L Carbon Dioxide BUN 29 H Creatinine 8.0 H Glucose 201 H POC Glucose 161 H Lactic Acid Calcium 8.0 L ALT Troponin T C-Reactive Protein Albumin Triglycerides HDL Cholesterol Vitamin B12 Folate 07/07/18 07/08/18 07/08/18 21:56 05:19 05:19 WBC 12.7 H RBC Hgb Hct MCV 104 H MCH 35 H RDW Plt Count Lymph % (Auto) Lymph # Baso # Seg Neutrophils % Seg Neuts % (Manual) 92.0 H Lymphocytes % (Manual) 5.0 L Nucleated RBC % 1.0 H Seg Neutrophils # Seg Neutrophils # Man 11.7 H Lymphocytes # (Manual) 0.6 L Monocytes # (Manual) D-Dimer Heparin Anti-Xa Level Sodium 134 L Potassium 3.4 L Chloride 93.6 L Carbon Dioxide BUN 30 H Creatinine 8.0 H Glucose 184 H POC Glucose 162 H Lactic Acid Calcium ALT Troponin T C-Reactive Protein Albumin Triglycerides HDL Cholesterol Vitamin B12 Folate 07/08/18 07/08/18 07/08/18 05:19 05:19 08:25 WBC RBC Hgb Hct MCV MCH RDW Plt Count Lymph % (Auto) Lymph # Baso # Seg Neutrophils % Seg Neuts % (Manual) Lymphocytes % (Manual) Nucleated RBC % Seg Neutrophils # Seg Neutrophils # Man Lymphocytes # (Manual) Monocytes # (Manual) D-Dimer Heparin Anti-Xa Level Sodium Potassium Chloride Carbon Dioxide BUN Creatinine Glucose POC Glucose 200 H Lactic Acid Calcium ALT Troponin T C-Reactive Protein Albumin Triglycerides HDL Cholesterol Vitamin B12 1416 H Folate 2.39 L 07/08/18 07/08/18 07/08/18 11:48 16:14 21:53 WBC RBC Hgb Hct MCV MCH RDW Plt Count Lymph % (Auto) Lymph # Baso # Seg Neutrophils % Seg Neuts % (Manual) Lymphocytes % (Manual) Nucleated RBC % Seg Neutrophils # Seg Neutrophils # Man Lymphocytes # (Manual) Monocytes # (Manual) D-Dimer Heparin Anti-Xa Level Sodium Potassium Chloride Carbon Dioxide BUN Creatinine Glucose POC Glucose 202 H 176 H 219 H Lactic Acid Calcium ALT Troponin T C-Reactive Protein Albumin Triglycerides HDL Cholesterol Vitamin B12 Folate 07/09/18 07/09/18 07/09/18 07:50 09:51 09:51 WBC 15.8 H RBC Hgb Hct 43.4 H MCV 105 H MCH 34 H RDW Plt Count Lymph % (Auto) Lymph # Baso # Seg Neutrophils % Seg Neuts % (Manual) 94.0 H Lymphocytes % (Manual) 3.0 L Nucleated RBC % 1.0 H Seg Neutrophils # Seg Neutrophils # Man 14.9 H Lymphocytes # (Manual) 0.5 L Monocytes # (Manual) D-Dimer Heparin Anti-Xa Level Sodium 135 L Potassium Chloride 95.5 L Carbon Dioxide BUN 29 H Creatinine 8.4 H Glucose 204 H POC Glucose 163 H Lactic Acid Calcium ALT Troponin T C-Reactive Protein Albumin Triglycerides HDL Cholesterol Vitamin B12 Folate 07/09/18 07/09/18 07/09/18 11:50 18:47 22:16 WBC RBC Hgb Hct MCV MCH RDW Plt Count Lymph % (Auto) Lymph # Baso # Seg Neutrophils % Seg Neuts % (Manual) Lymphocytes % (Manual) Nucleated RBC % Seg Neutrophils # Seg Neutrophils # Man Lymphocytes # (Manual) Monocytes # (Manual) D-Dimer Heparin Anti-Xa Level Sodium Potassium Chloride Carbon Dioxide BUN Creatinine Glucose POC Glucose 156 H 176 H 189 H Lactic Acid Calcium ALT Troponin T C-Reactive Protein Albumin Triglycerides HDL Cholesterol Vitamin B12 Folate 07/10/18 07/10/18 07/10/18 05:35 08:22 08:52 WBC 17.9 H RBC Hgb Hct MCV 105 H MCH 34 H RDW Plt Count Lymph % (Auto) Lymph # Baso # Seg Neutrophils % Seg Neuts % (Manual) 87.0 H Lymphocytes % (Manual) 6.0 L Nucleated RBC % Seg Neutrophils # Seg Neutrophils # Man 15.6 H Lymphocytes # (Manual) 1.1 L Monocytes # (Manual) 1.1 H D-Dimer Heparin Anti-Xa Level Sodium 135 L Potassium Chloride 92.8 L Carbon Dioxide BUN 27 H Creatinine 7.5 H Glucose 175 H POC Glucose 129 H Lactic Acid Calcium ALT Troponin T C-Reactive Protein Albumin Triglycerides HDL Cholesterol Vitamin B12 Folate 07/10/18 07/10/18 07/10/18 11:47 18:22 21:32 WBC RBC Hgb Hct MCV MCH RDW Plt Count Lymph % (Auto) Lymph # Baso # Seg Neutrophils % Seg Neuts % (Manual) Lymphocytes % (Manual) Nucleated RBC % Seg Neutrophils # Seg Neutrophils # Man Lymphocytes # (Manual) Monocytes # (Manual) D-Dimer Heparin Anti-Xa Level Sodium Potassium Chloride Carbon Dioxide BUN Creatinine Glucose POC Glucose 189 H 211 H 306 H Lactic Acid Calcium ALT Troponin T C-Reactive Protein Albumin Triglycerides HDL Cholesterol Vitamin B12 Folate 07/11/18 07/11/18 07/11/18 04:10 07:36 11:49 WBC 19.4 H RBC Hgb Hct MCV 107 H MCH 35 H RDW 15.3 H Plt Count Lymph % (Auto) Lymph # Baso # Seg Neutrophils % Seg Neuts % (Manual) 89.0 H Lymphocytes % (Manual) 4.0 L Nucleated RBC % Seg Neutrophils # Seg Neutrophils # Man 17.3 H Lymphocytes # (Manual) 0.8 L Monocytes # (Manual) D-Dimer Heparin Anti-Xa Level Sodium Potassium Chloride Carbon Dioxide BUN Creatinine Glucose POC Glucose 113 H 123 H Lactic Acid Calcium ALT Troponin T C-Reactive Protein Albumin Triglycerides HDL Cholesterol Vitamin B12 Folate 07/11/18 07/11/18 07/12/18 17:35 23:28 00:48 WBC 17.0 H RBC Hgb Hct MCV 106 H MCH 35 H RDW Plt Count Lymph % (Auto) Lymph # Baso # Seg Neutrophils % Seg Neuts % (Manual) 92.0 H Lymphocytes % (Manual) 3.0 L Nucleated RBC % Seg Neutrophils # Seg Neutrophils # Man 15.6 H Lymphocytes # (Manual) 0.5 L Monocytes # (Manual) 0.9 H D-Dimer Heparin Anti-Xa Level Sodium Potassium Chloride Carbon Dioxide BUN Creatinine Glucose POC Glucose 207 H 188 H Lactic Acid Calcium ALT Troponin T C-Reactive Protein Albumin Triglycerides HDL Cholesterol Vitamin B12 Folate 07/12/18 07/12/18 07/12/18 04:05 09:21 12:05 WBC RBC Hgb Hct MCV MCH RDW Plt Count Lymph % (Auto) Lymph # Baso # Seg Neutrophils % Seg Neuts % (Manual) Lymphocytes % (Manual) Nucleated RBC % Seg Neutrophils # Seg Neutrophils # Man Lymphocytes # (Manual) Monocytes # (Manual) D-Dimer Heparin Anti-Xa Level Sodium Potassium Chloride Carbon Dioxide BUN Creatinine Glucose POC Glucose 147 H 125 H 113 H Lactic Acid Calcium ALT Troponin T C-Reactive Protein Albumin Triglycerides HDL Cholesterol Vitamin B12 Folate 07/12/18 07/13/18 07/13/18 22:25 05:28 05:28 WBC 15.5 H RBC 3.62 L Hgb Hct MCV 105 H MCH 34 H RDW Plt Count Lymph % (Auto) Lymph # Baso # Seg Neutrophils % Seg Neuts % (Manual) 99.0 H Lymphocytes % (Manual) 1.0 L Nucleated RBC % Seg Neutrophils # Seg Neutrophils # Man 15.3 H Lymphocytes # (Manual) 0.2 L Monocytes # (Manual) D-Dimer Heparin Anti-Xa Level Sodium 133 L Potassium Chloride 95.0 L Carbon Dioxide BUN 43 H Creatinine 9.1 H Glucose 124 H POC Glucose 162 H Lactic Acid Calcium 8.0 L ALT Troponin T C-Reactive Protein Albumin Triglycerides HDL Cholesterol Vitamin B12 Folate 07/13/18 07/13/18 07/13/18 07:59 11:40 16:41 WBC RBC Hgb Hct MCV MCH RDW Plt Count Lymph % (Auto) Lymph # Baso # Seg Neutrophils % Seg Neuts % (Manual) Lymphocytes % (Manual) Nucleated RBC % Seg Neutrophils # Seg Neutrophils # Man Lymphocytes # (Manual) Monocytes # (Manual) D-Dimer Heparin Anti-Xa Level Sodium Potassium Chloride Carbon Dioxide BUN Creatinine Glucose POC Glucose 191 H 195 H 204 H Lactic Acid Calcium ALT Troponin T C-Reactive Protein Albumin Triglycerides HDL Cholesterol Vitamin B12 Folate 07/13/18 07/14/18 07/14/18 22:38 04:15 04:15 WBC 13.1 H RBC Hgb Hct MCV 107 H MCH 34 H RDW Plt Count Lymph % (Auto) Lymph # Baso # Seg Neutrophils % Seg Neuts % (Manual) 89.0 H Lymphocytes % (Manual) 6.0 L Nucleated RBC % Seg Neutrophils # Seg Neutrophils # Man 11.7 H Lymphocytes # (Manual) 0.8 L Monocytes # (Manual) D-Dimer Heparin Anti-Xa Level Sodium 136 L Potassium Chloride 95.3 L Carbon Dioxide BUN 40 H Creatinine 8.1 H Glucose POC Glucose 190 H Lactic Acid Calcium ALT Troponin T C-Reactive Protein Albumin Triglycerides HDL Cholesterol Vitamin B12 Folate 07/14/18 07/14/18 07/14/18 07:57 12:18 17:24 WBC RBC Hgb Hct MCV MCH RDW Plt Count Lymph % (Auto) Lymph # Baso # Seg Neutrophils % Seg Neuts % (Manual) Lymphocytes % (Manual) Nucleated RBC % Seg Neutrophils # Seg Neutrophils # Man Lymphocytes # (Manual) Monocytes # (Manual) D-Dimer Heparin Anti-Xa Level Sodium Potassium Chloride Carbon Dioxide BUN Creatinine Glucose POC Glucose 205 H 180 H 249 H Lactic Acid Calcium ALT Troponin T C-Reactive Protein Albumin Triglycerides HDL Cholesterol Vitamin B12 Folate 07/14/18 07/15/18 07/15/18 22:19 06:42 06:42 WBC 11.9 H RBC Hgb Hct MCV 105 H MCH 34 H RDW Plt Count Lymph % (Auto) 6.4 L Lymph # 0.8 L Baso # Seg Neutrophils % 89.6 H Seg Neuts % (Manual) Lymphocytes % (Manual) Nucleated RBC % Seg Neutrophils # 10.6 H Seg Neutrophils # Man Lymphocytes # (Manual) Monocytes # (Manual) D-Dimer Heparin Anti-Xa Level Sodium 131 L Potassium 3.5 L Chloride 94.3 L Carbon Dioxide BUN 36 H Creatinine 7.0 H Glucose 166 H POC Glucose 156 H Lactic Acid Calcium 8.1 L ALT Troponin T C-Reactive Protein Albumin Triglycerides HDL Cholesterol Vitamin B12 Folate 07/15/18 07/15/18 07/15/18 08:12 11:46 15:44 WBC RBC Hgb Hct MCV MCH RDW Plt Count Lymph % (Auto) Lymph # Baso # Seg Neutrophils % Seg Neuts % (Manual) Lymphocytes % (Manual) Nucleated RBC % Seg Neutrophils # Seg Neutrophils # Man Lymphocytes # (Manual) Monocytes # (Manual) D-Dimer Heparin Anti-Xa Level Sodium Potassium Chloride Carbon Dioxide BUN Creatinine Glucose POC Glucose 187 H 201 H 169 H Lactic Acid Calcium ALT Troponin T C-Reactive Protein Albumin Triglycerides HDL Cholesterol Vitamin B12 Folate 07/15/18 07/16/18 07/16/18 23:09 00:22 01:52 WBC RBC Hgb Hct MCV MCH RDW Plt Count Lymph % (Auto) Lymph # Baso # Seg Neutrophils % Seg Neuts % (Manual) Lymphocytes % (Manual) Nucleated RBC % Seg Neutrophils # Seg Neutrophils # Man Lymphocytes # (Manual) Monocytes # (Manual) D-Dimer Heparin Anti-Xa Level Sodium Potassium Chloride Carbon Dioxide BUN Creatinine Glucose 234 H POC Glucose < 40 L 203 H Lactic Acid Calcium ALT Troponin T C-Reactive Protein Albumin Triglycerides HDL Cholesterol Vitamin B12 Folate 07/16/18 07/16/18 07/16/18 04:22 05:12 05:12 WBC 14.0 H RBC 3.58 L Hgb Hct MCV 106 H MCH 34 H RDW Plt Count Lymph % (Auto) Lymph # Baso # Seg Neutrophils % Seg Neuts % (Manual) 92.0 H Lymphocytes % (Manual) 4.0 L Nucleated RBC % Seg Neutrophils # Seg Neutrophils # Man 12.9 H Lymphocytes # (Manual) 0.6 L Monocytes # (Manual) D-Dimer Heparin Anti-Xa Level Sodium 130 L Potassium 2.9 L* Chloride 92.9 L Carbon Dioxide BUN 38 H Creatinine 6.8 H Glucose 194 H POC Glucose 194 H Lactic Acid Calcium ALT Troponin T C-Reactive Protein Albumin Triglycerides HDL Cholesterol Vitamin B12 Folate 07/16/18 07/16/18 07/16/18 08:45 12:22 16:42 WBC RBC Hgb Hct MCV MCH RDW Plt Count Lymph % (Auto) Lymph # Baso # Seg Neutrophils % Seg Neuts % (Manual) Lymphocytes % (Manual) Nucleated RBC % Seg Neutrophils # Seg Neutrophils # Man Lymphocytes # (Manual) Monocytes # (Manual) D-Dimer Heparin Anti-Xa Level Sodium Potassium Chloride Carbon Dioxide BUN Creatinine Glucose POC Glucose 155 H 208 H 143 H Lactic Acid Calcium ALT Troponin T C-Reactive Protein Albumin Triglycerides HDL Cholesterol Vitamin B12 Folate Allied health notes reviewed: nursing
[2018-07-16] MEDS: MAXIPIME/NS 1 GM/100 ML 1 GM/100 ML BAG IV SCH (23:23)
[2018-07-17] MEDS: MORPHINE IV PRN ×3 (00:52→22:48)
[2018-07-17] MEDS: [UNRECOGNIZED DRUG - OTHER] IP SCH (01:00)
--- NOTE | 2018-07-17 05:01 | Hem/Onc Progress Note ---
Assessment and Plan 1. Left leg deep venous thrombosis. The patient was on heparin drip. The patient is on peritoneal dialysis. The dose of Eliquis or any direct thrombin inhibitors or other anticoagulation monitoring may become challenging. 2. MCV elevated. We will follow - low folate - on Rx. 3. Elevated D-dimers. - DVT - Rx eliquis 4. History of renal failure,was on peritoneal dialysis. Later HD 5. History of hypertension. She was hypotensive at admission. 6. History of diabetes. 7. I will follow the patient during inpatient stay and then in the clinic setting for anticoagulation management. 8 - fever Issues - Id following - on Abx 07/05 - d/w dr cartagena - pharmacy to help reg NOAC - ? eliquis 2.5 q 12? 07/06 - pharmacy has placed pt on 5 mg q 12 07/08 - pt on eliquis - d/w dr noyola - Placement pending gets PD 07/09 - pt had fever on eliquis for left leg dvt. h/o abdo discomfort - on and off 07/10/2018 DVT - on eliquis c/o abdo discomfort - d/w dr andrade - US abdo elevated MCV - low folate - replace ESRD on PD h/o fever 07/11 US abdo done - report pending Leukocytosis - seen by ID on eliquis 07/13/2018 pt says PD catheter not working US abdo done ID - for Abx eliquis for DVT 07/14 DVT - eliquis WBC high - on Abx MCV elevated - low folate - on Rx on Pd 07/15 dvt - on eliquis h/o anemia - on procrit - folic acid on PD for CKD OP follow up from hem perspective 07/16 HD cath PD cath removal being looked into DVT - on eliquis - reviewed dose for HD 07/17 DVT leg - on eliquis anemia - procrit for HD folic acid - Patient Problems (1) DVT (deep venous thrombosis) Current Visit: Yes Status: Acute Qualifiers: DVT location: lower extremity Chronicity: acute Subjective Date of service: 07/17/18 Principal diagnosis: dvt leg Interval history: no bleeding Objective - Constitutional Vitals: Last Vital Signs Temp 97.8 F 07/17/18 02:31 Pulse 76 07/17/18 02:31 Resp 20 07/16/18 20:21 BP 82/55 07/17/18 02:31 Pulse Ox 94 07/17/18 02:36 Pain Intensity (0-10): denies any pain General appearance: no acute distress Performance status: 3-limited selfcare - EENT Eyes: EOM intact ENT: clear oral mucosa Lymph node exam: negative cervical - Neck Neck: normal ROM - Respiratory Respiratory effort: Positive: normal Respiratory: bilateral: diminished - Cardiovascular Heart Sounds: Present: S1 & S2 Extremities: normal temperature - Gastrointestinal General gastrointestinal: Present: soft, other (PD cath) Rectal Exam: deferred - Genitourinary Female genitourinary: Present: deferred - Integumentary Integumentary: warm - Musculoskeletal Musculoskeletal: generalized weakness - Neurologic Neurologic: moves all extremities - Labs Lab Results: Laboratory Results - last 24 hr 07/16/18 07/16/18 07/16/18 05:12 05:12 05:12 WBC 14.0 H RBC 3.58 L Hgb 12.2 Hct 38.0 MCV 106 H MCH 34 H MCHC 32 RDW 15.2 Plt Count 254 Add Manual Diff Complete Total Counted 100 Seg Neuts % (Manual) 92.0 H Band Neutrophils % 2.0 Lymphocytes % (Manual) 4.0 L Reactive Lymphs % (Man) 0 Monocytes % (Manual) 2.0 Eosinophils % (Manual) 0 Basophils % (Manual) 0 Metamyelocytes % 0 Myelocytes % 0 Promyelocytes % 0 Blast Cells % 0 Nucleated RBC % Not Reportable Seg Neutrophils # Man 12.9 H Band Neutrophils # 0.3 Lymphocytes # (Manual) 0.6 L Abs React Lymphs (Man) 0.0 Monocytes # (Manual) 0.3 Eosinophils # (Manual) 0.0 Basophils # (Manual) 0.0 Metamyelocytes # 0.0 Myelocytes # 0.0 Promyelocytes # 0.0 Blast Cells # 0.0 WBC Morphology Not Reportable Hypersegmented Neuts Not Reportable Hyposegmented Neuts Not Reportable Hypogranular Neuts Not Reportable Smudge Cells Not Reportable Toxic Granulation Not Reportable Toxic Vacuolation Not Reportable Dohle Bodies Not Reportable Pelger-Huet Anomaly Not Reportable Nomi Rods Not Reportable Platelet Estimate Cons Clumped Platelets Not Reportable Plt Clumps, EDTA Not Reportable Large Platelets Few Giant Platelets Not Reportable Platelet Satelliting Not Reportable Plt Morphology Comment Not Reportable RBC Morphology Not Reportable Dimorphic RBCs Not Reportable Polychromasia Few Hypochromasia Not Reportable Poikilocytosis Not Reportable Anisocytosis Not Reportable Microcytosis Not Reportable Macrocytosis Not Reportable Spherocytes Not Reportable Pappenheimer Bodies Not Reportable Sickle Cells Not Reportable Target Cells Not Reportable Tear Drop Cells Not Reportable Ovalocytes Not Reportable Helmet Cells Not Reportable Barnhart-Tangent Bodies Not Reportable [place] Rings Not Reportable [place] Cells Not Reportable Bite Cells Not Reportable Crenated Cell Not Reportable Elliptocytes Not Reportable Acanthocytes (Spur) Not Reportable Rouleaux Not Reportable Hemoglobin C Crystals Not Reportable Schistocytes Not Reportable Malaria parasites Not Reportable Navneet Bodies Not Reportable Hem Pathologist Commnt No Sodium 130 L Potassium 2.9 L* Chloride 92.9 L Carbon Dioxide 24 Anion Gap 16 BUN 38 H Creatinine 6.8 H Estimated GFR 7 BUN/Creatinine Ratio 6 Glucose 194 H POC Glucose Calcium 8.4 Random Vancomycin 19 07/16/18 07/16/18 07/16/18 08:45 12:22 16:42 WBC RBC Hgb Hct MCV MCH MCHC RDW Plt Count Add Manual Diff Total Counted Seg Neuts % (Manual) Band Neutrophils % Lymphocytes % (Manual) Reactive Lymphs % (Man) Monocytes % (Manual) Eosinophils % (Manual) Basophils % (Manual) Metamyelocytes % Myelocytes % Promyelocytes % Blast Cells % Nucleated RBC % Seg Neutrophils # Man Band Neutrophils # Lymphocytes # (Manual) Abs React Lymphs (Man) Monocytes # (Manual) Eosinophils # (Manual) Basophils # (Manual) Metamyelocytes # Myelocytes # Promyelocytes # Blast Cells # WBC Morphology Hypersegmented Neuts Hyposegmented Neuts Hypogranular Neuts Smudge Cells Toxic Granulation Toxic Vacuolation Dohle Bodies Pelger-Huet Anomaly Nomi Rods Platelet Estimate Clumped Platelets Plt Clumps, EDTA Large Platelets Giant Platelets Platelet Satelliting Plt Morphology Comment RBC Morphology Dimorphic RBCs Polychromasia Hypochromasia Poikilocytosis Anisocytosis Microcytosis Macrocytosis Spherocytes Pappenheimer Bodies Sickle Cells Target Cells Tear Drop Cells Ovalocytes Helmet Cells Barnhart-Tangent Bodies [place] Cells Bite Cells Crenated Cell Elliptocytes Acanthocytes (Spur) Rouleaux Hemoglobin C Crystals Schistocytes Malaria parasites Navneet Bodies Hem Pathologist Commnt Sodium Potassium Chloride Carbon Dioxide Anion Gap BUN Creatinine Estimated GFR BUN/Creatinine Ratio Glucose POC Glucose 155 H 208 H 143 H Calcium Random Vancomycin 07/16/18 22:02 WBC RBC Hgb Hct MCV MCH MCHC RDW Plt Count Add Manual Diff Total Counted Seg Neuts % (Manual) Band Neutrophils % Lymphocytes % (Manual) Reactive Lymphs % (Man) Monocytes % (Manual) Eosinophils % (Manual) Basophils % (Manual) Metamyelocytes % Myelocytes % Promyelocytes % Blast Cells % Nucleated RBC % Seg Neutrophils # Man Band Neutrophils # Lymphocytes # (Manual) Abs React Lymphs (Man) Monocytes # (Manual) Eosinophils # (Manual) Basophils # (Manual) Metamyelocytes # Myelocytes # Promyelocytes # Blast Cells # WBC Morphology Hypersegmented Neuts Hyposegmented Neuts Hypogranular Neuts Smudge Cells Toxic Granulation Toxic Vacuolation Dohle Bodies Pelger-Huet Anomaly Nomi Rods Platelet Estimate Clumped Platelets Plt Clumps, EDTA Large Platelets Giant Platelets Platelet Satelliting Plt Morphology Comment RBC Morphology Dimorphic RBCs Polychromasia Hypochromasia Poikilocytosis Anisocytosis Microcytosis Macrocytosis Spherocytes Pappenheimer Bodies Sickle Cells Target Cells Tear Drop Cells Ovalocytes Helmet Cells Barnhart-Tangent Bodies [place] Cells Bite Cells Crenated Cell Elliptocytes Acanthocytes (Spur) Rouleaux Hemoglobin C Crystals Schistocytes Malaria parasites Navneet Bodies Hem Pathologist Commnt Sodium Potassium Chloride Carbon Dioxide Anion Gap BUN Creatinine Estimated GFR BUN/Creatinine Ratio Glucose POC Glucose 115 H Calcium Random Vancomycin Medications & Allergies - Medications Allergies/Adverse Reactions: Allergies No Known Allergies Allergy (Verified 08/18/14 08:52) Home Medications: Home Medications Medication Instructions Recorded Confirmed Last Taken Type Calcitriol [Rocaltrol] 0.5 mcg PO QDAY 06/29/18 06/29/18 Unknown History Simvastatin [Zocor] 20 mg PO DAILY 06/29/18 06/29/18 Unknown History Apixaban [Eliquis] 5 mg PO Q12HR tablet 07/15/18 Unknown Rx Aspirin [Aspirin BABY CHEW TAB] 81 mg PO QDAY tab.chew 07/15/18 Unknown Rx AtorvaSTATin [Lipitor] 40 mg PO QHS tablet 07/15/18 Unknown Rx Cefepime/Ns 1 gm/100 ml 1 gm IV Q24HR 21 Days piggyback 07/15/18 Unknown Rx [Maxipime/Ns 1 gm/100 ml] Docusate Sodium [Colace CAP] 100 mg PO BID capsule 07/15/18 Unknown Rx Fludrocortisone [Florinef] 0.1 mg PO QDAY tablet 07/15/18 Unknown Rx Folic Acid [Folvite] 1 mg PO QDAY tablet 07/15/18 Unknown Rx Lactulose [Cephulac] 20 gm PO TID PRN oral.liqd 07/15/18 Unknown Rx Lispro Insulin [Humalog] 0 unit SUB-Q ACHS units 07/15/18 Unknown Rx Midodrine [Proamatine] 10 mg PO TID tablet 07/15/18 Unknown Rx Pantoprazole [Protonix TAB] 40 mg PO QDAY tablet 07/15/18 Unknown Rx Polyethylene Glycol 3350 [Miralax 17 gm PO QDAY powd.pack 07/15/18 Unknown Rx 3350] Sevelamer Carbonate [Renvela] 1,600 mg PO TIDWM tablet 07/15/18 Unknown Rx Active Medications: Generic Name Dose Route Start Last Admin Trade Name Freq PRN Reason Stop Dose Admin Acetaminophen 650 mg 07/15/18 12:55 07/15/18 13:53 Tylenol PO 650 mg Q4H PRN Administration Pain, Mild (1-3) Apixaban 5 mg 07/04/18 16:00 07/16/18 22:22 Eliquis PO 5 mg Q12HR DIANE Administration Protocol Aspirin 81 mg 06/29/18 13:00 07/16/18 14:41 Baby Aspirin PO 81 mg QDAY DIANE Administration Atorvastatin Calcium 40 mg 06/29/18 22:00 07/16/18 22:22 Lipitor PO 40 mg QHS DIANE Administration Calcitriol 0.5 mcg 06/29/18 13:00 07/16/18 14:50 Rocaltrol PO 0.5 mcg QDAY DIANE Administration Docusate Sodium 100 mg 07/02/18 10:00 07/16/18 22:24 Colace PO 100 mg BID DIANE Administration Fludrocortisone Acetate 0.1 mg 07/15/18 14:00 07/16/18 14:53 Florinef PO 0.1 mg QDAY DIANE Administration Folic Acid 1 mg 07/10/18 14:00 07/16/18 14:41 Folvite PO 1 mg QDAY DIANE Administration Heparin Sodium (Porcine) 5,000 unit 07/16/18 18:52 Heparin IV THOMAS PRN hemodialysis Sodium Chloride 100 mls @ 999 mls/hr 07/16/18 18:52 Nacl 0.9% IV THOMAS PRN Hypotension Cefepime HCl 1 gm in 100 mls @ 200 mls/hr 07/16/18 22:00 07/16/18 23:23 Maxipime/Ns 1 Gm/100 Ml IV 200 mls/hr QHS DIANE Administration Protocol Insulin Human Lispro 0 unit 06/29/18 22:00 07/16/18 21:58 Humalog SUB-Q Not Given ACHS [facility] Protocol Lactulose 20 gm 07/13/18 12:00 Cephulac PO TID PRN Constipation Lidocaine 1 each 06/29/18 13:00 07/16/18 14:50 Lidoderm 5% TD 1 each QDAY DIANE Administration Midodrine 10 mg 07/01/18 14:00 07/16/18 22:21 Proamatine PO 10 mg TID DIANE Administration Morphine Sulfate 2 mg 07/08/18 14:51 07/17/18 00:52 Morphine IV 2 mg Q4H PRN Administration Pain, Moderate (4-6) Pantoprazole Sodium 40 mg 07/08/18 10:00 07/16/18 14:41 Protonix PO 40 mg QDAY DIANE Administration Polyethylene Glycol 17 gm 07/02/18 10:00 07/16/18 14:42 Miralax 3350 PO 17 gm QDAY DIANE Administration Sevelamer Carbonate 1,600 mg 06/29/18 12:00 07/16/18 18:23 Renvela PO Not Given TIDWM DIANE
[2018-07-17 06:10] LABS: Calcium 8.5 mg/dL (8.4-10.2)
[2018-07-17] MEDS: HumaLOG SUB-Q SCH ×4 (07:22→21:50)
[2018-07-17] MEDS: RENVELA PO SCH ×3 (07:55→17:05)
[2018-07-17] MEDS: PROAMATINE PO SCH ×3 (08:01→21:49)
--- NOTE | 2018-07-17 10:07 | Progress Note ---
Assessment and Plan Cultures: 06/29/2018 Blood culture: No growth 07/01/2018 peritoneal dialysate culture: No growth 07/08/2018 blood culture: No growth 07/10/2018 peritoneal fluid culture: many PMN's, no growth 07/12/2018 peritoneal fluid culture: many PMN's, no growth A/P: 67-year-old female with ESRD on peritoneal dialysis, hypertension, hyperlipidemia, diabetes mellitus type 2 who presented to the emergency room and was hospitalized on 06/29/2018 with complaints of fall. Now with: 1) Sepsis: Leukocytosis trending up. secondary to PD associated peritonitis. Chest x-ray without pneumonia, blood cultures with no growth. Patient doesn't make any urine, UTI unlikely. No report of diarrhea. CT abdomen shows moderate- sized umbilical hernia present containing adipose tissue. No herniated loops of bowel are seen. 2 ESRD on PD: Renally dose antibiotics. s/P Right IJ permacath placement 07/16/18. PD catheter removal scheduled for today. Anticipate 2 weeks of abx post PD catheter removal 3) Left leg DVT: on anticoagulation. Recs: Continue cefepime and vancomycin renally adjusted, D8 f/u PD fluid cultures Anticipate 2 weeks of abx post PD catheter removal CBC ordered for tomorrow [facility] M: [id number] O:[phone] Subjective Date of service: 07/17/18 Principal diagnosis: dvt leg Interval history: Patient seen and examined. Awake, Alert . No acute distress reported. Mild abdominal tenderness. Objective - Exam Narrative Exam: Constitutional: Alert, cooperative. No acute distress Head, Ears, Nose: Normocephalic, atraumatic. External ears, nose normal Eyes: Conjunctivae/corneas clear. No icterus. No ptosis. Neck: Supple, no meningeal signs Oral: mucosa moist, no thrush Cardiovascular: S1, S2 normal. Respiratory: Good air entry, clear to auscultation bilaterally GI: Soft, mildly tender,+ small drainage at PD site. Musculoskeletal: No pedal edema, no cyanosis. Skin: No rash or abscess Hem/Lymphatic: No palpable cervical or supraclavicular nodes. No lymphangitis Psych: Mood ok. Affect normal Neurological: Awake, alert, oriented. No gross abnormality Lines: Right IJ Permacath - Constitutional Vitals: Vital Signs Temp Pulse Resp BP Pulse Ox 98.4 F 88 20 76/44 95 07/17/18 08:20 07/17/18 09:45 07/17/18 08:20 07/17/18 09:45 07/17/18 08:01 Temperature -Last 24 Hours Temperature 98.4 F Temperature 98.4 F Temperature 97.8 F Temperature 98.5 F Temperature 98.7 F - Labs CBC & Chem 7: 07/16/18 05:12 07/17/18 04:32 Labs: Abnormal lab results 07/16/18 07/16/18 07/16/18 Range/Units 12:22 16:42 22:02 Sodium (137-145) mmol/L Chloride (98-107) mmol/L BUN (7-17) mg/dL Creatinine (0.7-1.2) mg/dL POC Glucose 208 H 143 H 115 H (70-105) 07/17/18 Range/Units 04:32 Sodium 131 L (137-145) mmol/L Chloride 93.6 L (98-107) mmol/L BUN 45 H (7-17) mg/dL Creatinine 7.2 H (0.7-1.2) mg/dL POC Glucose (70-105)
--- NOTE | 2018-07-17 10:33 | Progress Note ---
Assessment and Plan Impression: * End stage renal disease on PD * Catheter associated peritonitis * LE DVT * Elevated troponin --TTE: LVEF 55-60% --Strest shannon: nml perfusion, nml LV function * Hypokalemia * Secondary hyperparathyroidism * Erythrocytosis, resolved - ?secondary to hemoconcentration vs other --Renal u/s: no mass, small bilateral cysts Plan: * Patient is s/p permcath placement * HD - MWF * UF as tolerated * Surgery note reviewed. Patient initially declined PD catheter removal; after lengthy discussion with patient; she is now agreeable - notified Dr. Zavala * Continue abx; changed IP Fortaz to IV Cefepime as PD orders discontinued; jaylene ins on IV Vanco * Anticoagulation per primary team * Replete lytes prn * Renal diet * Dose medications for renal function Subjective Date of service: 07/17/18 Principal diagnosis: dvt leg Interval history: resting well in bed today Objective - Exam Narrative Exam: General appearance: well-developed, well-nourished, appears stated age EENT: PERRL, mucous membranes moist Neck: no JVD, no thyromegaly, no carotid bruit, supple Respiratory: Present: Clear to Ascultation Cardiology: regular, normal heart rate Gastrointestinal: normoactive bowel sounds, tenderness (mild diffuse tenderness) Integumentary: no rash, other (no edema) - Vital Signs Vital signs: Vital Signs - 12hr 07/17/18 07/17/18 07/17/18 02:20 02:31 02:36 Temperature 97.8 F Pulse Rate 79 76 Respiratory Rate Blood Pressure Blood Pressure 82/55 [Left] O2 Sat by Pulse 94 94 Oximetry 07/17/18 07/17/18 07/17/18 08:01 08:20 08:30 Temperature 98.4 F 98.4 F Pulse Rate 80 83 84 Respiratory 20 20 Rate Blood Pressure 88/47 90/51 103/49 Blood Pressure [Left] O2 Sat by Pulse 95 Oximetry 07/17/18 07/17/18 07/17/18 08:45 09:00 09:15 Temperature Pulse Rate 75 80 84 Respiratory Rate Blood Pressure 94/51 82/61 80/49 Blood Pressure [Left] O2 Sat by Pulse Oximetry 07/17/18 07/17/18 09:30 09:45 Temperature Pulse Rate 87 88 Respiratory Rate Blood Pressure 80/49 76/44 Blood Pressure [Left] O2 Sat by Pulse Oximetry - Lab 07/16/18 05:12 07/17/18 04:32 Most recent lab results Calcium 8.5 mg/dL (8.4-10.2) 07/17/18 04:32 Medications & Allergies - Medications Allergies/Adverse Reactions: Allergies No Known Allergies Allergy (Verified 08/18/14 08:52) Home Medications: Home Medications Medication Instructions Recorded Confirmed Last Taken Type Calcitriol [Rocaltrol] 0.5 mcg PO QDAY 06/29/18 06/29/18 Unknown History Simvastatin [Zocor] 20 mg PO DAILY 06/29/18 06/29/18 Unknown History Apixaban [Eliquis] 5 mg PO Q12HR tablet 07/15/18 Unknown Rx Aspirin [Aspirin BABY CHEW TAB] 81 mg PO QDAY tab.chew 07/15/18 Unknown Rx AtorvaSTATin [Lipitor] 40 mg PO QHS tablet 07/15/18 Unknown Rx Cefepime/Ns 1 gm/100 ml 1 gm IV Q24HR 21 Days piggyback 07/15/18 Unknown Rx [Maxipime/Ns 1 gm/100 ml] Docusate Sodium [Colace CAP] 100 mg PO BID capsule 07/15/18 Unknown Rx Fludrocortisone [Florinef] 0.1 mg PO QDAY tablet 07/15/18 Unknown Rx Folic Acid [Folvite] 1 mg PO QDAY tablet 07/15/18 Unknown Rx Lactulose [Cephulac] 20 gm PO TID PRN oral.liqd 07/15/18 Unknown Rx Lispro Insulin [Humalog] 0 unit SUB-Q ACHS units 07/15/18 Unknown Rx Midodrine [Proamatine] 10 mg PO TID tablet 07/15/18 Unknown Rx Pantoprazole [Protonix TAB] 40 mg PO QDAY tablet 07/15/18 Unknown Rx Polyethylene Glycol 3350 [Miralax 17 gm PO QDAY powd.pack 07/15/18 Unknown Rx 3350] Sevelamer Carbonate [Renvela] 1,600 mg PO TIDWM tablet 07/15/18 Unknown Rx Active Medications: Generic Name Dose Route Start Last Admin Trade Name Freq PRN Reason Stop Dose Admin Acetaminophen 650 mg 07/15/18 12:55 07/15/18 13:53 Tylenol PO 650 mg Q4H PRN Administration Pain, Mild (1-3) Apixaban 5 mg 07/04/18 16:00 07/16/18 22:22 Eliquis PO 5 mg Q12HR DIANE Administration Protocol Aspirin 81 mg 06/29/18 13:00 07/16/18 14:41 Baby Aspirin PO 81 mg QDAY DIANE Administration Atorvastatin Calcium 40 mg 06/29/18 22:00 07/16/18 22:22 Lipitor PO 40 mg QHS DIANE Administration Calcitriol 0.5 mcg 06/29/18 13:00 07/16/18 14:50 Rocaltrol PO 0.5 mcg QDAY DIANE Administration Docusate Sodium 100 mg 07/02/18 10:00 07/16/18 22:24 Colace PO 100 mg BID DIANE Administration Fludrocortisone Acetate 0.1 mg 07/15/18 14:00 07/16/18 14:53 Florinef PO 0.1 mg QDAY DIANE Administration Folic Acid 1 mg 07/10/18 14:00 07/16/18 14:41 Folvite PO 1 mg QDAY DIANE Administration Heparin Sodium (Porcine) 5,000 unit 07/16/18 18:52 Heparin IV THOMAS PRN hemodialysis Sodium Chloride 100 mls @ 999 mls/hr 07/16/18 18:52 Nacl 0.9% IV THOMAS PRN Hypotension Cefepime HCl 1 gm in 100 mls @ 200 mls/hr 07/16/18 22:00 07/16/18 23:23 Maxipime/Ns 1 Gm/100 Ml IV 200 mls/hr QHS DIANE Administration Protocol Insulin Human Lispro 0 unit 06/29/18 22:00 07/17/18 07:22 Humalog SUB-Q Not Given ACHS [facility] Protocol Lactulose 20 gm 07/13/18 12:00 Cephulac PO TID PRN Constipation Lidocaine 1 each 06/29/18 13:00 07/16/18 14:50 Lidoderm 5% TD 1 each QDAY DIANE Administration Midodrine 10 mg 07/01/18 14:00 07/17/18 08:01 Proamatine PO 10 mg TID DIANE Administration Morphine Sulfate 2 mg 07/08/18 14:51 07/17/18 00:52 Morphine IV 2 mg Q4H PRN Administration Pain, Moderate (4-6) Pantoprazole Sodium 40 mg 07/08/18 10:00 07/16/18 14:41 Protonix PO 40 mg QDAY DIANE Administration Polyethylene Glycol 17 gm 07/02/18 10:00 07/16/18 14:42 Miralax 3350 PO 17 gm QDAY DIANE Administration Sevelamer Carbonate 1,600 mg 06/29/18 12:00 07/17/18 07:55 Renvela PO Not Given TIDWM DIANE
[2018-07-17] MEDS: ELIQUIS PO SCH (11:56)
[2018-07-17] MEDS: MIRALAX 3350 PO SCH (11:57)
[2018-07-17] MEDS: COLACE PO SCH ×2 (11:57→21:49)
[2018-07-17] MEDS: BABY ASPIRIN PO SCH (11:58)
[2018-07-17] MEDS: FLORINEF PO SCH (11:58)
[2018-07-17] MEDS: ROCALTROL PO SCH (11:58)
[2018-07-17] MEDS: FOLVITE PO SCH (11:58)
[2018-07-17] MEDS: LIDODERM 5% TD SCH (11:59)
[2018-07-17] MEDS: PROTONIX PO SCH (11:59)
--- NOTE | 2018-07-17 13:34 | Progress Note ---
Assessment and Plan Assessment and plan: Patient is a 67-year-old female past medical history of end-stage renal disease on peritoneal dialysis, hypertension hyperlipidemia, diabetes mellitus type 2 on diet control, presented to ER by EMS after having a fall around 9 AM in the morning but she had no loss of consciousness or hit her head. She was sitting on bed and accidentally "slid to ground". She was unable to get up from the bed as she was feeling very weak in her legs. Her family called emergency services to break into her house around 5pm. She was then brought to the ER for further evaluation and management . She noted to have highly elevated d-dimer, elevated white count. In the ED, patient was hypotensive w/ WBC 24.8. CTA chest was unremarkable. V/Q scan was also low prob PE. She denied fever, chills, PD fluid has been clear. She was placed on Levophed, given IV Rocephin and admitted. she was diagnosed with SIRS, hypotension. She improved on Levophed was weaned off. She had swelling of the legs on both ultrasound confirmed a DVT of left lower extremity for which she has been . However patient has failure to thrive, debility, she feels very weak and unable to stand. I discussed with case management she started working on acute rehabilitation placement. The patient developed fever and leukocytosis on 07/08/18. Fever resolved but leukocytosis worsened. Antibiotics restarted and blood cultures thus far negative. ID consulted. Sepsis not present on admission - PD associated peritonitis. - PD fluid cell count noted to be elevated at 6350 . Blood cultures were no growth to date. PD culture with no growth 48 hrs. Patient is currently on cefepime - Abdominal US reveals moderate-sized umbilical hernia present containing adipose tissue. No herniated loops of bowel are seen. - Continue to monitor leukocytosis, improved. PD catheter malfunction - surgery consulted for removal - currently patient is on HD Chronic Hypotension - stable HLD, on statin ESRD on PD, now changed to HD, patient has permcath Nephrology following Diabetes type 2, diet controlled, cont SSRI Elevated troponin/NSTEMI type 2 - Cardiology following - Stress test negative DVT left lower ext. Cont. Eliquis. Disposition; patient was accepted by [facility], pending PD removal. Patient didn't agree with the removal yesterday but she agreed after discussed with nephrology. History Interval history: Patient was seen and evaluated during dialysis Hospitalist Physical - Physical exam Narrative exam: Not in cardiopulmonary distress. The patient appeared well nourished and normally developed. Vital signs as documented. Head exam is unremarkable. No scleral icterus . Neck is without jugular venous distension, thyromegaly, or carotid bruits. Lungs are clear to auscultation. Cardiac exam reveals regular rate and Rhythm. First and second heart sounds normal. No murmurs, rubs or gallops. Abdominal exam reveals normal bowel sounds, no masses, no organomegaly and no aortic enlargement. Extremities are nonedematous and both femoral and pedal pulses are normal. 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 No focal weakness. - Constitutional Vitals: Temp Pulse Resp BP Pulse Ox 97.4 F L 99 H 20 96/58 89 07/17/18 12:24 07/17/18 12:24 07/17/18 12:24 07/17/18 12:24 07/17/18 12:24 General appearance: Present: no acute distress, well-nourished Results - Labs CBC & Chem 7: 07/16/18 05:12 07/17/18 04:32 Labs: Laboratory Last Values WBC 14.0 K/mm3 (4.5-11.0) H 07/16/18 05:12 RBC 3.58 M/mm3 (3.65-5.03) L 07/16/18 05:12 Hgb 12.2 gm/dl (10.1-14.3) 07/16/18 05:12 Hct 38.0 % (30.3-42.9) 07/16/18 05:12 MCV 106 fl (79-97) H 07/16/18 05:12 MCH 34 pg (28-32) H 07/16/18 05:12 MCHC 32 % (30-34) 07/16/18 05:12 RDW 15.2 % (13.2-15.2) 07/16/18 05:12 Plt Count 254 K/mm3 (140-440) 07/16/18 05:12 Lymph % (Auto) 6.4 % (13.4-35.0) L 07/15/18 06:42 Moore % (Auto) 3.4 % (0.0-7.3) 07/15/18 06:42 Eos % (Auto) 0.5 % (0.0-4.3) 07/15/18 06:42 Baso % (Auto) 0.1 % (0.0-1.8) 07/15/18 06:42 Lymph # 0.8 K/mm3 (1.2-5.4) L 07/15/18 06:42 Moore # 0.4 K/mm3 (0.0-0.8) 07/15/18 06:42 Eos # 0.1 K/mm3 (0.0-0.4) 07/15/18 06:42 Baso # 0.0 K/mm3 (0.0-0.1) 07/15/18 06:42 Add Manual Diff Complete 07/16/18 05:12 Total Counted 100 07/16/18 05:12 Seg Neutrophils % 89.6 % (40.0-70.0) H 07/15/18 06:42 Seg Neuts % (Manual) 92.0 % (40.0-70.0) H 07/16/18 05:12 Band Neutrophils % 2.0 % 07/16/18 05:12 Lymphocytes % (Manual) 4.0 % (13.4-35.0) L 07/16/18 05:12 Reactive Lymphs % (Man) 0 % 07/16/18 05:12 Monocytes % (Manual) 2.0 % (0.0-7.3) 07/16/18 05:12 Eosinophils % (Manual) 0 % (0.0-4.3) 07/16/18 05:12 Basophils % (Manual) 0 % (0.0-1.8) 07/16/18 05:12 Metamyelocytes % 0 % 07/16/18 05:12 Myelocytes % 0 % 07/16/18 05:12 Promyelocytes % 0 % 07/16/18 05:12 Blast Cells % 0 % 07/16/18 05:12 Nucleated RBC % Not Reportable 07/16/18 05:12 Seg Neutrophils # 10.6 K/mm3 (1.8-7.7) H 07/15/18 06:42 Seg Neutrophils # Man 12.9 K/mm3 (1.8-7.7) H 07/16/18 05:12 Band Neutrophils # 0.3 K/mm3 07/16/18 05:12 Lymphocytes # (Manual) 0.6 K/mm3 (1.2-5.4) L 07/16/18 05:12 Abs React Lymphs (Man) 0.0 K/mm3 07/16/18 05:12 Monocytes # (Manual) 0.3 K/mm3 (0.0-0.8) 07/16/18 05:12 Eosinophils # (Manual) 0.0 K/mm3 (0.0-0.4) 07/16/18 05:12 Basophils # (Manual) 0.0 K/mm3 (0.0-0.1) 07/16/18 05:12 Metamyelocytes # 0.0 K/mm3 07/16/18 05:12 Myelocytes # 0.0 K/mm3 07/16/18 05:12 Promyelocytes # 0.0 K/mm3 07/16/18 05:12 Blast Cells # 0.0 K/mm3 07/16/18 05:12 WBC Morphology Not Reportable 07/16/18 05:12 Hypersegmented Neuts Not Reportable 07/16/18 05:12 Hyposegmented Neuts Not Reportable 07/16/18 05:12 Hypogranular Neuts Not Reportable 07/16/18 05:12 Smudge Cells Not Reportable 07/16/18 05:12 Toxic Granulation Not Reportable 07/16/18 05:12 Toxic Vacuolation Not Reportable 07/16/18 05:12 Dohle Bodies Not Reportable 07/16/18 05:12 Pelger-Huet Anomaly Not Reportable 07/16/18 05:12 Nomi Rods Not Reportable 07/16/18 05:12 Platelet Estimate Cons 07/16/18 05:12 Clumped Platelets Not Reportable 07/16/18 05:12 Plt Clumps, EDTA Not Reportable 07/16/18 05:12 Large Platelets Few 07/16/18 05:12 Giant Platelets Not Reportable 07/16/18 05:12 Platelet Satelliting Not Reportable 07/16/18 05:12 Plt Morphology Comment Not Reportable 07/16/18 05:12 RBC Morphology Not Reportable 07/16/18 05:12 Dimorphic RBCs Not Reportable 07/16/18 05:12 Polychromasia Few 07/16/18 05:12 Hypochromasia Not Reportable 07/16/18 05:12 Poikilocytosis Not Reportable 07/16/18 05:12 Anisocytosis Not Reportable 07/16/18 05:12 Microcytosis Not Reportable 07/16/18 05:12 Macrocytosis Not Reportable 07/16/18 05:12 Spherocytes Not Reportable 07/16/18 05:12 Pappenheimer Bodies Not Reportable 07/16/18 05:12 Sickle Cells Not Reportable 07/16/18 05:12 Target Cells Not Reportable 07/16/18 05:12 Tear Drop Cells Not Reportable 07/16/18 05:12 Ovalocytes Not Reportable 07/16/18 05:12 Helmet Cells Not Reportable 07/16/18 05:12 Barnhart-[place] Bodies Not Reportable 07/16/18 05:12 Custer Rings Not Reportable 07/16/18 05:12 [place] Cells Not Reportable 07/16/18 05:12 Bite Cells Not Reportable 07/16/18 05:12 Crenated Cell Not Reportable 07/16/18 05:12 Elliptocytes Not Reportable 07/16/18 05:12 Acanthocytes (Spur) Not Reportable 07/16/18 05:12 Rouleaux Not Reportable 07/16/18 05:12 Hemoglobin C Crystals Not Reportable 07/16/18 05:12 Schistocytes Not Reportable 07/16/18 05:12 Malaria parasites Not Reportable 07/16/18 05:12 Navneet Bodies Not Reportable 07/16/18 05:12 Hem Pathologist Commnt No 07/16/18 05:12 PT 13.6 Sec. (12.2-14.9) 07/03/18 12:39 INR 0.98 (0.87-1.13) 07/03/18 12:39 APTT 34.1 Sec. (24.2-36.6) 07/03/18 12:39 D-Dimer > 11709 ng/mlDDU (0-234) H 06/28/18 22:26 Heparin Anti-Xa Level 1.70 U.I./ml (0.3-0.7) H 07/04/18 14:59 Sodium 131 mmol/L (137-145) L 07/17/18 04:32 Potassium 4.2 mmol/L (3.6-5.0) D 07/17/18 04:32 Chloride 93.6 mmol/L (98-107) L 07/17/18 04:32 Carbon Dioxide 23 mmol/L (22-30) 07/17/18 04:32 Anion Gap 19 mmol/L 07/17/18 04:32 BUN 45 mg/dL (7-17) H 07/17/18 04:32 Creatinine 7.2 mg/dL (0.7-1.2) H 07/17/18 04:32 Estimated GFR 7 ml/min 07/17/18 04:32 BUN/Creatinine Ratio 6 % 07/17/18 04:32 Glucose 77 mg/dL (65-100) 07/17/18 04:32 POC Glucose 82 (70-105) 07/17/18 07:20 Lactic Acid 2.20 mmol/L (0.7-2.0) H* 07/02/18 05:22 Calcium 8.5 mg/dL (8.4-10.2) 07/17/18 04:32 Total Bilirubin 0.40 mg/dL (0.1-1.2) 06/28/18 20:54 AST 25 units/L (5-40) 06/28/18 20:54 ALT 5 units/L (7-56) L 06/28/18 20:54 Alkaline Phosphatase 88 units/L (35-129) 06/28/18 20:54 Total Creatine Kinase 118 units/L (30-135) 06/29/18 20:37 Troponin T 0.077 ng/mL (0.00-0.029) H 06/29/18 20:37 C-Reactive Protein 7.40 mg/dL (0.00-1.30) H 07/01/18 13:32 Total Protein 7.4 g/dL (6.3-8.2) 06/28/18 20:54 Albumin 3.2 g/dL (3.9-5) L 06/28/18 20:54 Albumin/Globulin Ratio 0.8 % 06/28/18 20:54 Triglycerides 194 mg/dL (2-149) H 06/28/18 10:38 Cholesterol 167 mg/dL (50-199) 06/28/18 10:38 LDL Cholesterol Direct 61 mg/dL (50-130) 06/28/18 10:38 HDL Cholesterol 68 mg/dL (40-59) H 06/28/18 10:38 Cholesterol/HDL Ratio 2.45 % 06/28/18 10:38 Vitamin B12 1416 pg/mL (211-911) H 07/08/18 05:19 Folate 2.39 ng/mL (7.3-26.0) L 07/08/18 05:19 Fluid Type Peritoneal 07/14/18 14:48 Fluid Color Straw 07/14/18 14:48 Fluid Appearance Cloudy 07/14/18 14:48 Fluid WBC 2700 /mm3 07/14/18 14:48 Fluid RBC 39 /mm3 07/14/18 14:48 Fluid Seg Neutrophils 96.0 % 07/14/18 14:48 Fluid Lymphocytes 3.0 % 07/14/18 14:48 Fluid Reactive Lymphs 0 % 07/14/18 14:48 Fluid Monocytes 1.0 % 07/14/18 14:48 Fluid Eosinophils 0 % 07/14/18 14:48 Fluid Basophils 0 % 07/14/18 14:48 Random Vancomycin 19 ug/mL (0-40.0) 07/16/18 05:12 Active Medications - Current Medications Current Medications: Generic Name Dose Route Start Last Admin Trade Name Freq PRN Reason Stop Dose Admin Acetaminophen 650 mg 07/15/18 12:55 07/15/18 13:53 Tylenol PO 650 mg Q4H PRN Administration Pain, Mild (1-3) Apixaban 5 mg 07/04/18 16:00 07/17/18 11:56 Eliquis PO 5 mg Q12HR DIANE Administration Protocol Aspirin 81 mg 06/29/18 13:00 07/17/18 11:58 Baby Aspirin PO 81 mg QDAY DIANE Administration Atorvastatin Calcium 40 mg 06/29/18 22:00 07/16/18 22:22 Lipitor PO 40 mg QHS DIANE Administration Calcitriol 0.5 mcg 06/29/18 13:00 07/17/18 11:58 Rocaltrol PO 0.5 mcg QDAY DIANE Administration Docusate Sodium 100 mg 07/02/18 10:00 07/17/18 11:57 Colace PO Not Given BID [facility] Fludrocortisone Acetate 0.1 mg 07/15/18 14:00 07/17/18 11:58 Florinef PO 0.1 mg QDAY DIANE Administration Folic Acid 1 mg 07/10/18 14:00 07/17/18 11:58 Folvite PO 1 mg QDAY DIANE Administration Heparin Sodium (Porcine) 5,000 unit 07/16/18 18:52 Heparin IV THOMAS PRN hemodialysis Sodium Chloride 100 mls @ 999 mls/hr 07/16/18 18:52 Nacl 0.9% IV THOMAS PRN Hypotension Cefepime HCl 1 gm in 100 mls @ 200 mls/hr 07/16/18 22:00 07/16/18 23:23 Maxipime/Ns 1 Gm/100 Ml IV 200 mls/hr QHS DIANE Administration Protocol Insulin Human Lispro 0 unit 06/29/18 22:00 07/17/18 11:32 Humalog SUB-Q Not Given ACHS [facility] Protocol Lactulose 20 gm 07/13/18 12:00 Cephulac PO TID PRN Constipation Lidocaine 1 each 06/29/18 13:00 07/17/18 11:59 Lidoderm 5% TD 1 each QDAY DIANE Administration Midodrine 10 mg 07/01/18 14:00 07/17/18 08:01 Proamatine PO 10 mg TID DIANE Administration Morphine Sulfate 2 mg 07/08/18 14:51 07/17/18 00:52 Morphine IV 2 mg Q4H PRN Administration Pain, Moderate (4-6) Pantoprazole Sodium 40 mg 07/08/18 10:00 07/17/18 11:59 Protonix PO 40 mg QDAY DIANE Administration Polyethylene Glycol 17 gm 07/02/18 10:00 07/17/18 11:57 Miralax 3350 PO Not Given QDAY DIANE Sevelamer Carbonate 1,600 mg 06/29/18 12:00 07/17/18 11:58 Renvela PO 1,600 mg TIDWM DIANE Administration Nutrition/Malnutrition Assess - Dietary Evaluation Nutrition/Malnutrition Findings: Nutrition Notes Start: 07/05/18 14:49 Freq: Status: Active Protocol: Document 07/16/18 12:28 EB (Rec: 07/16/18 12:35 EB [id number]) Co-Sign 07/16/18 12:28 LP Nutrition Notes Initial or Follow up Reassessment Current Diagnosis Diabetes Other Pertinent Diagnosis ESRD on PD, Possible sepsis Current Diet Renal,Cardiac with Nepro daily Labs/Tests Reviewed Pertinent Medications Reviewed Height 5 ft 6 in Weight 102.5 kg [place] Body Weight (kg) 59.09 BMI 36.4 Subjective/Other Information F/u for intakes. Pt NPO since last night due to scheduled procedure today. Pt states she only drank juice for dinner last night because she was not hungry. Pt reports consumption of 50% meals in past several days, adding that she has has decreased appetite for the past several days. Pt states that she does drink ONS daily. Percent of energy/protein needs met: 61%/42% (prior to NPO) Burn Absent Trauma Absent Current % PO Fair (50-74%) #1 Nutrition Diagnosis Inadequate oral intake Etiology NPO status As Evidenced by Signs and Symptoms pt meeting 61%/42% edis and pro needs via PO intake prior to NPO status Diagnosis Progress(for reassessment Worsened documentation) Is patient on ventilator? No Is Patient Ambulatory and/or Out of Bed Yes REE-([place]-St. Jeor-ambulatory/OOB) [ 2035.77 [id number]] Kcal/Kg value to use for calculation 17 Approximate Energy Requirements Using 1743 kcal/Kg Calculation Used for Recommendations Kcal/kg Additional Notes Protein Needs: 92-100g (1.2-1. 3g/kg, 77kg adjBW) Fluid Needs: 1 ml/kcal Nutrition Intervention Change Diet Order: Continue current Add Supplement/Snack (indicate name/kcal Nepro 1 daily /protein ) Provides kCal: 425 Provides Protein (gm) 19 Goal #1 Meet at least 75% edis and pro needs via PO and ONS intake Anticipated Discharge Needs: Renal diet Follow-Up By: 07/19/18 Additional Comments F/u: PO and ONS intakes
--- NOTE | 2018-07-17 13:39 | Progress Note ---
Assessment and Plan Assessment and plan: Patient is a 67-year-old female past medical history of end-stage renal disease on peritoneal dialysis, hypertension hyperlipidemia, diabetes mellitus type 2 on diet control, presented to ER by EMS after having a fall around 9 AM in the morning but she had no loss of consciousness or hit her head. She was sitting on bed and accidentally "slid to ground". She was unable to get up from the bed as she was feeling very weak in her legs. Her family called emergency services to break into her house around 5pm. She was then brought to the ER for further evaluation and management . She noted to have highly elevated d-dimer, elevated white count. In the ED, patient was hypotensive w/ WBC 24.8. CTA chest was unremarkable. V/Q scan was also low prob PE. She denied fever, chills, PD fluid has been clear. She was placed on Levophed, given IV Rocephin and admitted. she was diagnosed with SIRS, hypotension. She improved on Levophed was weaned off. She had swelling of the legs on both ultrasound confirmed a DVT of left lower extremity for which she has been . However patient has failure to thrive, debility, she feels very weak and unable to stand. I discussed with case management she started working on acute rehabilitation placement. The patient developed fever and leukocytosis on 07/08/18. Fever resolved but leukocytosis worsened. Antibiotics restarted and blood cultures thus far negative. ID consulted. Sepsis not present on admission - PD associated peritonitis. - PD fluid cell count noted to be elevated at 6350 . Blood cultures were no growth to date. PD culture with no growth 48 hrs. Patient is currently on cefepime - Abdominal US reveals moderate-sized umbilical hernia present containing adipose tissue. No herniated loops of bowel are seen. - Continue to monitor leukocytosis, improved. PD catheter malfunction - surgery consulted for removal - currently patient is on HD Chronic Hypotension - stable HLD, on statin ESRD on PD, now changed to HD, patient has permcath Nephrology following Diabetes type 2, diet controlled, cont SSRI Elevated troponin/NSTEMI type 2 - Cardiology following - Stress test negative DVT left lower ext. Cont. Eliquis. Disposition; patient was accepted by [facility], pending PD removal. Patient didn't agree with the removal initially but she agreed later after discussed with nephrology. History Interval history: Patient was seen and evaluated this morning no new complaints Hospitalist Physical - Physical exam Narrative exam: Not in cardiopulmonary distress. The patient appeared well nourished and normally developed. Vital signs as documented. Head exam is unremarkable. No scleral icterus . Neck is without jugular venous distension, thyromegaly, or carotid bruits. Lungs are clear to auscultation. Cardiac exam reveals regular rate and Rhythm. First and second heart sounds normal. No murmurs, rubs or gallops. Abdominal exam reveals normal bowel sounds, no masses, no organomegaly and no aortic enlargement. Extremities are nonedematous and both femoral and pedal pulses are normal. POWDER OPERATOR: Alert and oriented 3. No focal weakness. - Constitutional Vitals: Temp Pulse Resp BP Pulse Ox 97.4 F L 99 H 20 96/58 89 07/17/18 12:24 07/17/18 12:24 07/17/18 12:24 07/17/18 12:24 07/17/18 12:24 General appearance: Present: no acute distress, well-nourished Results - Labs CBC & Chem 7: 07/16/18 05:12 07/17/18 04:32 Labs: Laboratory Last Values WBC 14.0 K/mm3 (4.5-11.0) H 07/16/18 05:12 RBC 3.58 M/mm3 (3.65-5.03) L 07/16/18 05:12 Hgb 12.2 gm/dl (10.1-14.3) 07/16/18 05:12 Hct 38.0 % (30.3-42.9) 07/16/18 05:12 MCV 106 fl (79-97) H 07/16/18 05:12 MCH 34 pg (28-32) H 07/16/18 05:12 MCHC 32 % (30-34) 07/16/18 05:12 RDW 15.2 % (13.2-15.2) 07/16/18 05:12 Plt Count 254 K/mm3 (140-440) 07/16/18 05:12 Lymph % (Auto) 6.4 % (13.4-35.0) L 07/15/18 06:42 [place] % (Auto) 3.4 % (0.0-7.3) 07/15/18 06:42 Eos % (Auto) 0.5 % (0.0-4.3) 07/15/18 06:42 Baso % (Auto) 0.1 % (0.0-1.8) 07/15/18 06:42 Lymph # 0.8 K/mm3 (1.2-5.4) L 07/15/18 06:42 [place] # 0.4 K/mm3 (0.0-0.8) 07/15/18 06:42 Eos # 0.1 K/mm3 (0.0-0.4) 07/15/18 06:42 Baso # 0.0 K/mm3 (0.0-0.1) 07/15/18 06:42 Add Manual Diff Complete 07/16/18 05:12 Total Counted 100 07/16/18 05:12 Seg Neutrophils % 89.6 % (40.0-70.0) H 07/15/18 06:42 Seg Neuts % (Manual) 92.0 % (40.0-70.0) H 07/16/18 05:12 Band Neutrophils % 2.0 % 07/16/18 05:12 Lymphocytes % (Manual) 4.0 % (13.4-35.0) L 07/16/18 05:12 Reactive Lymphs % (Man) 0 % 07/16/18 05:12 Monocytes % (Manual) 2.0 % (0.0-7.3) 07/16/18 05:12 Eosinophils % (Manual) 0 % (0.0-4.3) 07/16/18 05:12 Basophils % (Manual) 0 % (0.0-1.8) 07/16/18 05:12 Metamyelocytes % 0 % 07/16/18 05:12 Myelocytes % 0 % 07/16/18 05:12 Promyelocytes % 0 % 07/16/18 05:12 Blast Cells % 0 % 07/16/18 05:12 Nucleated RBC % Not Reportable 07/16/18 05:12 Seg Neutrophils # 10.6 K/mm3 (1.8-7.7) H 07/15/18 06:42 Seg Neutrophils # Man 12.9 K/mm3 (1.8-7.7) H 07/16/18 05:12 Band Neutrophils # 0.3 K/mm3 07/16/18 05:12 Lymphocytes # (Manual) 0.6 K/mm3 (1.2-5.4) L 07/16/18 05:12 Abs React Lymphs (Man) 0.0 K/mm3 07/16/18 05:12 Monocytes # (Manual) 0.3 K/mm3 (0.0-0.8) 07/16/18 05:12 Eosinophils # (Manual) 0.0 K/mm3 (0.0-0.4) 07/16/18 05:12 Basophils # (Manual) 0.0 K/mm3 (0.0-0.1) 07/16/18 05:12 Metamyelocytes # 0.0 K/mm3 07/16/18 05:12 Myelocytes # 0.0 K/mm3 07/16/18 05:12 Promyelocytes # 0.0 K/mm3 07/16/18 05:12 Blast Cells # 0.0 K/mm3 07/16/18 05:12 WBC Morphology Not Reportable 07/16/18 05:12 Hypersegmented Neuts Not Reportable 07/16/18 05:12 Hyposegmented Neuts Not Reportable 07/16/18 05:12 Hypogranular Neuts Not Reportable 07/16/18 05:12 Smudge Cells Not Reportable 07/16/18 05:12 Toxic Granulation Not Reportable 07/16/18 05:12 Toxic Vacuolation Not Reportable 07/16/18 05:12 Dohle Bodies Not Reportable 07/16/18 05:12 Pelger-Huet Anomaly Not Reportable 07/16/18 05:12 Nomi Rods Not Reportable 07/16/18 05:12 Platelet Estimate Cons 07/16/18 05:12 Clumped Platelets Not Reportable 07/16/18 05:12 Plt Clumps, EDTA Not Reportable 07/16/18 05:12 Large Platelets Few 07/16/18 05:12 Giant Platelets Not Reportable 07/16/18 05:12 Platelet Satelliting Not Reportable 07/16/18 05:12 Plt Morphology Comment Not Reportable 07/16/18 05:12 RBC Morphology Not Reportable 07/16/18 05:12 Dimorphic RBCs Not Reportable 07/16/18 05:12 Polychromasia Few 07/16/18 05:12 Hypochromasia Not Reportable 07/16/18 05:12 Poikilocytosis Not Reportable 07/16/18 05:12 Anisocytosis Not Reportable 07/16/18 05:12 Microcytosis Not Reportable 07/16/18 05:12 Macrocytosis Not Reportable 07/16/18 05:12 Spherocytes Not Reportable 07/16/18 05:12 Pappenheimer Bodies Not Reportable 07/16/18 05:12 Sickle Cells Not Reportable 07/16/18 05:12 Target Cells Not Reportable 07/16/18 05:12 Tear Drop Cells Not Reportable 07/16/18 05:12 Ovalocytes Not Reportable 07/16/18 05:12 Helmet Cells Not Reportable 07/16/18 05:12 [place] Bodies Not Reportable 07/16/18 05:12 [place] Rings Not Reportable 07/16/18 05:12 Edgar Cells Not Reportable 07/16/18 05:12 Bite Cells Not Reportable 07/16/18 05:12 Crenated Cell Not Reportable 07/16/18 05:12 Elliptocytes Not Reportable 07/16/18 05:12 Acanthocytes (Spur) Not Reportable 07/16/18 05:12 Rouleaux Not Reportable 07/16/18 05:12 Hemoglobin C Crystals Not Reportable 07/16/18 05:12 Schistocytes Not Reportable 07/16/18 05:12 Malaria parasites Not Reportable 07/16/18 05:12 Navneet Bodies Not Reportable 07/16/18 05:12 Hem Pathologist Commnt No 07/16/18 05:12 PT 13.6 Sec. (12.2-14.9) 07/03/18 12:39 INR 0.98 (0.87-1.13) 07/03/18 12:39 APTT 34.1 Sec. (24.2-36.6) 07/03/18 12:39 D-Dimer > 83162 ng/mlDDU (0-234) H 06/28/18 22:26 Heparin Anti-Xa Level 1.70 U.I./ml (0.3-0.7) H 07/04/18 14:59 Sodium 131 mmol/L (137-145) L 07/17/18 04:32 Potassium 4.2 mmol/L (3.6-5.0) D 04/10/19 04:32 Chloride 93.6 mmol/L (98-107) L 07/17/18 04:32 Carbon Dioxide 23 mmol/L (22-30) 07/17/18 04:32 Anion Gap 19 mmol/L 07/17/18 04:32 BUN 45 mg/dL (7-17) H 07/17/18 04:32 Creatinine 7.2 mg/dL (0.7-1.2) H 07/17/18 04:32 Estimated GFR 7 ml/min 07/17/18 04:32 BUN/Creatinine Ratio 6 % 07/17/18 04:32 Glucose 77 mg/dL (65-100) 07/17/18 04:32 POC Glucose 82 (70-105) 07/17/18 07:20 Lactic Acid 2.20 mmol/L (0.7-2.0) H* 07/02/18 05:22 Calcium 8.5 mg/dL (8.4-10.2) 07/17/18 04:32 Total Bilirubin 0.40 mg/dL (0.1-1.2) 06/28/18 20:54 AST 25 units/L (5-40) 06/28/18 20:54 ALT 5 units/L (7-56) L 06/28/18 20:54 Alkaline Phosphatase 88 units/L (35-129) 06/28/18 20:54 Total Creatine Kinase 118 units/L (30-135) 06/29/18 20:37 Troponin T 0.077 ng/mL (0.00-0.029) H 06/29/18 20:37 C-Reactive Protein 7.40 mg/dL (0.00-1.30) H 07/01/18 13:32 Total Protein 7.4 g/dL (6.3-8.2) 06/28/18 20:54 Albumin 3.2 g/dL (3.9-5) L 06/28/18 20:54 Albumin/Globulin Ratio 0.8 % 06/28/18 20:54 Triglycerides 194 mg/dL (2-149) H 06/28/18 10:38 Cholesterol 167 mg/dL (50-199) 06/28/18 10:38 LDL Cholesterol Direct 61 mg/dL (50-130) 06/28/18 10:38 HDL Cholesterol 68 mg/dL (40-59) H 06/28/18 10:38 Cholesterol/HDL Ratio 2.45 % 06/28/18 10:38 Vitamin B12 1416 pg/mL (211-911) H 07/08/18 05:19 Folate 2.39 ng/mL (7.3-26.0) L 07/08/18 05:19 Fluid Type Peritoneal 07/14/18 14:48 Fluid Color Straw 07/14/18 14:48 Fluid Appearance Cloudy 07/14/18 14:48 Fluid WBC 2700 /mm3 07/14/18 14:48 Fluid RBC 39 /mm3 07/14/18 14:48 Fluid Seg Neutrophils 96.0 % 07/14/18 14:48 Fluid Lymphocytes 3.0 % 07/14/18 14:48 Fluid Reactive Lymphs 0 % 07/14/18 14:48 Fluid Monocytes 1.0 % 07/14/18 14:48 Fluid Eosinophils 0 % 07/14/18 14:48 Fluid Basophils 0 % 07/14/18 14:48 Random Vancomycin 19 ug/mL (0-40.0) 07/16/18 05:12 Active Medications - Current Medications Current Medications: Generic Name Dose Route Start Last Admin Trade Name Freq PRN Reason Stop Dose Admin Acetaminophen 650 mg 07/15/18 12:55 07/15/18 13:53 Tylenol PO 650 mg Q4H PRN Administration Pain, Mild (1-3) Apixaban 5 mg 07/04/18 16:00 07/17/18 11:56 Eliquis PO 5 mg Q12HR DIANE Administration Protocol Aspirin 81 mg 06/29/18 13:00 07/17/18 11:58 Baby Aspirin PO 81 mg QDAY DIANE Administration Atorvastatin Calcium 40 mg 06/29/18 22:00 07/16/18 22:22 Lipitor PO 40 mg QHS DIANE Administration Calcitriol 0.5 mcg 06/29/18 13:00 07/17/18 11:58 Rocaltrol PO 0.5 mcg QDAY DIANE Administration Docusate Sodium 100 mg 07/02/18 10:00 07/17/18 11:57 Colace PO Not Given BID DIANE Fludrocortisone Acetate 0.1 mg 07/15/18 14:00 07/17/18 11:58 Florinef PO 0.1 mg QDAY DIANE Administration Folic Acid 1 mg 07/10/18 14:00 07/17/18 11:58 Folvite PO 1 mg QDAY DIANE Administration Heparin Sodium (Porcine) 5,000 unit 07/16/18 18:52 Heparin IV THOMAS PRN hemodialysis Sodium Chloride 100 mls @ 999 mls/hr 07/16/18 18:52 Nacl 0.9% IV THOMAS PRN Hypotension Cefepime HCl 1 gm in 100 mls @ 200 mls/hr 07/16/18 22:00 07/16/18 23:23 Maxipime/Ns 1 Gm/100 Ml IV 200 mls/hr QHS DIANE Administration Protocol Insulin Human Lispro 0 unit 06/29/18 22:00 07/17/18 11:32 Humalog SUB-Q Not Given ACHS [facility] Protocol Lactulose 20 gm 07/13/18 12:00 Cephulac PO TID PRN Constipation Lidocaine 1 each 06/29/18 13:00 07/17/18 11:59 Lidoderm 5% TD 1 each QDAY DIANE Administration Midodrine 10 mg 07/01/18 14:00 07/17/18 08:01 Proamatine PO 10 mg TID DIANE Administration Morphine Sulfate 2 mg 07/08/18 14:51 07/17/18 00:52 Morphine IV 2 mg Q4H PRN Administration Pain, Moderate (4-6) Pantoprazole Sodium 40 mg 07/08/18 10:00 07/17/18 11:59 Protonix PO 40 mg QDAY DIANE Administration Polyethylene Glycol 17 gm 07/02/18 10:00 07/17/18 11:57 Miralax 3350 PO Not Given QDAY DIANE Sevelamer Carbonate 1,600 mg 06/29/18 12:00 07/17/18 11:58 Renvela PO 1,600 mg TIDWM DIANE Administration Nutrition/Malnutrition Assess - Dietary Evaluation Nutrition/Malnutrition Findings: Nutrition Notes Start: 07/05/18 14: 49 Freq: Status: Active Protocol: Document 07/16/18 12:28 EB (Rec: 07/16/18 12:35 EB [id number]) Co-Sign 07/16/18 12:28 LP Nutrition Notes Initial or Follow up Reassessment Current Diagnosis Diabetes Other Pertinent Diagnosis ESRD on PD, Possible sepsis Current Diet Renal,Cardiac with Nepro daily Labs/Tests Reviewed Pertinent Medications Reviewed Height 5 ft 6 in Weight 102.5 kg [place] Body Weight (kg) 59.09 BMI 36.4 Subjective/Other Information F/u for intakes. Pt NPO since last night due to scheduled procedure today. Pt states she only drank juice for dinner last night because she was not hungry. Pt reports consumption of 50% meals in past several days, adding that she has has decreased appetite for the past several days. Pt states that she does drink ONS daily. Percent of energy/protein needs met: 61%/42% (prior to NPO) Burn Absent Trauma Absent Current % PO Fair (50-74%) #1 Nutrition Diagnosis Inadequate oral intake Etiology NPO status As Evidenced by Signs and Symptoms pt meeting 61%/42% edis and pro needs via PO intake prior to NPO status Diagnosis Progress(for reassessment Worsened documentation) Is patient on ventilator? No Is Patient Ambulatory and/or Out of Bed Yes REE-([place]-St. Jeor-ambulatory/OOB) [ NUTR.[id number]] Kcal/Kg value to use for calculation 17 Approximate Energy Requirements Using 1743 kcal/Kg Calculation Used for Recommendations Kcal/kg Additional Notes Protein Needs: 92-100g (1.2-1. 3g/kg, 77kg adjBW) Fluid Needs: 1 ml/kcal Nutrition Intervention Change Diet Order: Continue current Add Supplement/Snack (indicate name/kcal Nepro 1 daily /protein ) Provides kCal: 425 Provides Protein (gm) 19 Goal #1 Meet at least 75% edis and pro needs via PO and ONS intake Anticipated Discharge Needs: Renal diet Follow-Up By: 07/19/18 Additional Comments F/u: PO and ONS intakes
--- NOTE | 2018-07-17 14:08 | Progress Note ---
Assessment and Plan PD catheter related peritonitis. We will schedule patient for PD catheter removal. Risks and benefits including infection, bleeding, need for other procedures , etc discussed with patient and her sister Verbal and written consent obtained. Procedure to be done by one of [facility] physicians-patient and her sister agree. Subjective Date of service: 07/17/18 Patient Reports: Positive: no new complaints, other (sister( Olga) at bedside) Objective Vital Signs - 12hr 07/17/18 07/17/18 07/17/18 02:20 02:31 02:36 Temperature 97.8 F Pulse Rate 79 76 Pulse Rate [ Apical] Respiratory Rate Blood Pressure Blood Pressure 82/55 [Left] O2 Sat by Pulse 94 94 Oximetry 07/17/18 07/17/18 07/17/18 08:01 08:20 08:30 Temperature 98.4 F 98.4 F Pulse Rate 80 83 84 Pulse Rate [ Apical] Respiratory 20 20 Rate Blood Pressure 88/47 90/51 103/49 Blood Pressure [Left] O2 Sat by Pulse 95 Oximetry 07/17/18 07/17/18 07/17/18 08:45 09:00 09:15 Temperature Pulse Rate 75 80 84 Pulse Rate [ Apical] Respiratory Rate Blood Pressure 94/51 82/61 80/49 Blood Pressure [Left] O2 Sat by Pulse Oximetry 07/17/18 07/17/18 07/17/18 09:30 09:45 10:00 Temperature Pulse Rate 87 88 90 Pulse Rate [ 99 H Apical] Respiratory 16 Rate Blood Pressure 80/49 76/44 77/43 Blood Pressure [Left] O2 Sat by Pulse 95 Oximetry 07/17/18 07/17/18 07/17/18 10:15 10:31 10:45 Temperature Pulse Rate 90 91 H 95 H Pulse Rate [ Apical] Respiratory Rate Blood Pressure 72/47 84/54 68/49 Blood Pressure [Left] O2 Sat by Pulse Oximetry 07/17/18 07/17/18 07/17/18 11:00 11:15 11:25 Temperature 98.4 F Pulse Rate 50 L 101 H 101 H Pulse Rate [ Apical] Respiratory 20 Rate Blood Pressure 67/57 61/44 61/44 Blood Pressure [Left] O2 Sat by Pulse Oximetry 07/17/18 12:24 Temperature 97.4 F L Pulse Rate 99 H Pulse Rate [ Apical] Respiratory 20 Rate Blood Pressure 96/58 Blood Pressure [Left] O2 Sat by Pulse 89 Oximetry - General physical appearance no distress, other (slightly confused) - Abdomen soft, not tender, not distended, other (PD catheter site clean and dry) - Labs 07/16/18 05:12 07/17/18 04:32 Diabetes panel 07/17/18 Range/Units 04:32 Sodium 131 L (137-145) mmol/L Potassium 4.2 D (3.6-5.0) mmol/L Chloride 93.6 L (98-107) mmol/L Carbon Dioxide 23 (22-30) mmol/L BUN 45 H (7-17) mg/dL Creatinine 7.2 H (0.7-1.2) mg/dL Glucose 77 (65-100) mg/dL Calcium 8.5 (8.4-10.2) mg/dL Calcium panel 07/17/18 Range/Units 04:32 Calcium 8.5 (8.4-10.2) mg/dL Pituitary panel 07/17/18 Range/Units 04:32 Sodium 131 L (137-145) mmol/L Potassium 4.2 D (3.6-5.0) mmol/L Chloride 93.6 L (98-107) mmol/L Carbon Dioxide 23 (22-30) mmol/L BUN 45 H (7-17) mg/dL Creatinine 7.2 H (0.7-1.2) mg/dL Glucose 77 (65-100) mg/dL Calcium 8.5 (8.4-10.2) mg/dL Adrenal panel 07/17/18 Range/Units 04:32 Sodium 131 L (137-145) mmol/L Potassium 4.2 D (3.6-5.0) mmol/L Chloride 93.6 L (98-107) mmol/L Carbon Dioxide 23 (22-30) mmol/L BUN 45 H (7-17) mg/dL Creatinine 7.2 H (0.7-1.2) mg/dL Glucose 77 (65-100) mg/dL Calcium 8.5 (8.4-10.2) mg/dL
[2018-07-17] MEDS: VANCOMYCIN/NS 1 GM/250 ML 1 GM/250 ML BAG IV SCH (17:05)
--- NOTE | 2018-07-17 18:11 | Progress Note ---
Assessment and Plan Patient sleeping at this time..Patient is on room air.O2 saturation 93% . Patient Obese. Patient running low grade temp at times and has jeffry kocytosis.Patient receiving ceftazedem in peritoneal dialysis fluid.Having excessive day time sleepiness. Recommend sleep study as out patient.Venous doppler studies reported extensive left leg DVT.Patient is on Apixaban. - Patient Problems (1) NSTEMI (non-ST elevated myocardial infarction) Current Visit: Yes Status: Acute Plan to address problem: Management as per cardiology. (2) HTN (hypertension) Current Visit: Yes Status: Acute Plan to address problem: Management as per primary care. (3) Diabetes Current Visit: Yes Status: Chronic Plan to address problem: Mangement as per primary care. (4) ESRD on peritoneal dialysis Current Visit: Yes Status: Acute Plan to address problem: Management as per Nephrology. Patient is on peritoneal dialysis. (5) Elevated d-dimer Current Visit: Yes Status: Acute Plan to address problem: Perfusion lung scan reported low probability for pulmonary emboli. Venous doppler studies of legs reported extensive left leg DVT.Patient is on Apixaban (6) Obesity (BMI 30.0-34.9) Current Visit: Yes Status: Acute Plan to address problem: Diet and exercise to loose weight. Sleep study as out patient. (7) DVT (deep venous thrombosis) Current Visit: Yes Status: Acute Qualifiers: DVT location: lower extremity Chronicity: acute Plan to address problem: Patients venous doppler studies reported extensive left leg DVT. Patient is on Apixaban. Subjective Date of service: 07/17/18 Principal diagnosis: dvt leg Interval history: Patient sleeping at this time..Patient is on room air.O2 saturation 93% . Patient Obese. Patient running low grade temp at times and has leukocytosis.Patient receiving ceftazedem in peritoneal dialysis fluid.Having excessive day time sleepiness. Recommend sleep study as out patient.Venous doppler studies reported extensive left leg DVT.Patient is on Apixaban. Objective Vital Signs - 12hr 07/17/18 07/17/18 07/17/18 08:01 08:20 08:30 Temperature 98.4 F 98.4 F Pulse Rate 80 83 84 Pulse Rate [ Apical] Respiratory 20 20 Rate Blood Pressure 88/47 90/51 103/49 O2 Sat by Pulse 95 Oximetry 07/17/18 07/17/18 07/17/18 08:45 09:00 09:15 Temperature Pulse Rate 75 80 84 Pulse Rate [ Apical] Respiratory Rate Blood Pressure 94/51 82/61 80/49 O2 Sat by Pulse Oximetry 07/17/18 07/17/18 07/17/18 09:30 09:45 10:00 Temperature Pulse Rate 87 88 90 Pulse Rate [ 99 H Apical] Respiratory 16 Rate Blood Pressure 80/49 76/44 77/43 O2 Sat by Pulse 95 Oximetry 07/17/18 07/17/18 07/17/18 10:15 10:31 10:45 Temperature Pulse Rate 90 91 H 95 H Pulse Rate [ Apical] Respiratory Rate Blood Pressure 72/47 84/54 68/49 O2 Sat by Pulse Oximetry 07/17/18 07/17/18 07/17/18 11:00 11:15 11:25 Temperature 98.4 F Pulse Rate 50 L 101 H 101 H Pulse Rate [ Apical] Respiratory 20 Rate Blood Pressure 67/57 61/44 61/44 O2 Sat by Pulse Oximetry 07/17/18 07/17/18 12:24 13:59 Temperature 97.4 F L 98.6 F Pulse Rate 99 H 108 H Pulse Rate [ Apical] Respiratory 20 20 Rate Blood Pressure 96/58 80/47 O2 Sat by Pulse 89 93 Oximetry Constitutional: no acute distress, asleep Eyes: non-icteric ENT: oropharynx moist, other (mallampati 3) Neck: supple, no lymphadenopathy, no JVD, other (large neck circumference) Effort: normal Ascultation: Bilateral: diminished breath sounds, rhonchi (scant in bases) Percussion: Bilateral: not dull Cardiovascular: regular rate and rhythm, other (No R/M) Gastrointestinal: normoactive bowel sounds, soft, non-distended, other (No HSM, PD cathetr, clean dry site, mild lower abdominal tenderness, no rebound) Integumentary: normal Extremities: no cyanosis, no edema, pulses normal, no ischemia or petechiae Neurologic: normal mental status, non-focal exam (grossly), pupils equal and round, motor strength normal and Psychiatric: mood appropriate, affect normal CBC and BMP: 07/16/18 05:12 07/17/18 04:32 ABG, PT/INR, D-dimer: PT/INR, D-dimer PT 13.6 Sec. (12.2-14.9) 07/03/18 12:39 INR 0.98 (0.87-1.13) 07/03/18 12:39 D-Dimer > 38917 ng/mlDDU (0-234) H 06/28/18 22:26 Abnormal lab findings: Abnormal Labs 06/28/18 06/28/18 06/28/18 10:38 20:54 20:54 WBC 24.8 H RBC Hgb 16.6 H Hct 50.3 H MCV 107 H MCH 35 H RDW 15.6 H Plt Count Lymph % (Auto) Lymph # Baso # Seg Neutrophils % Seg Neuts % (Manual) 95.0 H Lymphocytes % (Manual) 3.0 L Nucleated RBC % Seg Neutrophils # Seg Neutrophils # Man 23.6 H Lymphocytes # (Manual) 0.7 L Monocytes # (Manual) D-Dimer Heparin Anti-Xa Level Sodium 131 L Potassium Chloride 89.6 L Carbon Dioxide 19 L BUN 29 H Creatinine 9.3 H Glucose 174 H POC Glucose Lactic Acid Calcium ALT 5 L Troponin T 0.073 H C-Reactive Protein Albumin 3.2 L Triglycerides 194 H HDL Cholesterol 68 H Vitamin B12 Folate 06/28/18 06/29/18 06/29/18 22:26 12:18 13:30 WBC RBC Hgb Hct MCV MCH RDW Plt Count Lymph % (Auto) Lymph # Baso # Seg Neutrophils % Seg Neuts % (Manual) Lymphocytes % (Manual) Nucleated RBC % Seg Neutrophils # Seg Neutrophils # Man Lymphocytes # (Manual) Monocytes # (Manual) D-Dimer > 86594 H Heparin Anti-Xa Level Sodium Potassium Chloride Carbon Dioxide BUN Creatinine Glucose POC Glucose 168 H Lactic Acid Calcium ALT Troponin T 0.073 H C-Reactive Protein Albumin Triglycerides HDL Cholesterol Vitamin B12 Folate 06/29/18 06/29/18 06/29/18 13:30 14:11 16:36 WBC 19.8 H RBC Hgb 14.7 H Hct 45.4 H MCV 108 H MCH 35 H RDW 15.9 H Plt Count Lymph % (Auto) Lymph # Baso # Seg Neutrophils % Seg Neuts % (Manual) Lymphocytes % (Manual) Nucleated RBC % Seg Neutrophils # Seg Neutrophils # Man Lymphocytes # (Manual) Monocytes # (Manual) D-Dimer Heparin Anti-Xa Level Sodium 133 L Potassium Chloride 91.7 L Carbon Dioxide 20 L BUN 33 H Creatinine 9.9 H Glucose 196 H POC Glucose 165 H Lactic Acid Calcium ALT Troponin T C-Reactive Protein Albumin Triglycerides HDL Cholesterol Vitamin B12 Folate 06/29/18 06/29/18 06/30/18 20:37 22:01 04:49 WBC 14.8 H RBC Hgb Hct MCV 106 H MCH 35 H RDW 15.5 H Plt Count Lymph % (Auto) Lymph # Baso # Seg Neutrophils % Seg Neuts % (Manual) 90.0 H Lymphocytes % (Manual) 5.0 L Nucleated RBC % Seg Neutrophils # Seg Neutrophils # Man 13.3 H Lymphocytes # (Manual) 0.7 L Monocytes # (Manual) D-Dimer Heparin Anti-Xa Level Sodium Potassium Chloride Carbon Dioxide BUN Creatinine Glucose POC Glucose 202 H Lactic Acid Calcium ALT Troponin T 0.077 H C-Reactive Protein Albumin Triglycerides HDL Cholesterol Vitamin B12 Folate 06/30/18 06/30/18 06/30/18 04:49 08:27 12:17 WBC RBC Hgb Hct MCV MCH RDW Plt Count Lymph % (Auto) Lymph # Baso # Seg Neutrophils % Seg Neuts % (Manual) Lymphocytes % (Manual) Nucleated RBC % Seg Neutrophils # Seg Neutrophils # Man Lymphocytes # (Manual) Monocytes # (Manual) D-Dimer Heparin Anti-Xa Level Sodium 134 L Potassium 3.5 L Chloride 94.7 L Carbon Dioxide BUN 30 H Creatinine 8.8 H Glucose 182 H POC Glucose 170 H 145 H Lactic Acid Calcium 7.9 L ALT Troponin T C-Reactive Protein Albumin Triglycerides HDL Cholesterol Vitamin B12 Folate 06/30/18 06/30/18 07/01/18 16:44 22:06 07:21 WBC 11.8 H RBC 3.32 L Hgb Hct MCV 105 H MCH 35 H RDW 15.5 H Plt Count 125 L Lymph % (Auto) Lymph # Baso # Seg Neutrophils % Seg Neuts % (Manual) Lymphocytes % (Manual) Nucleated RBC % Seg Neutrophils # Seg Neutrophils # Man Lymphocytes # (Manual) Monocytes # (Manual) D-Dimer Heparin Anti-Xa Level Sodium Potassium Chloride Carbon Dioxide BUN Creatinine Glucose POC Glucose 155 H 174 H Lactic Acid Calcium ALT Troponin T C-Reactive Protein Albumin Triglycerides HDL Cholesterol Vitamin B12 Folate 07/01/18 07/01/18 07/01/18 07:21 08:22 11:38 WBC RBC Hgb Hct MCV MCH RDW Plt Count Lymph % (Auto) Lymph # Baso # Seg Neutrophils % Seg Neuts % (Manual) Lymphocytes % (Manual) Nucleated RBC % Seg Neutrophils # Seg Neutrophils # Man Lymphocytes # (Manual) Monocytes # (Manual) D-Dimer Heparin Anti-Xa Level Sodium 134 L Potassium Chloride 95.9 L Carbon Dioxide BUN 31 H Creatinine 8.4 H Glucose 151 H POC Glucose 117 H 166 H Lactic Acid Calcium 7.8 L ALT Troponin T C-Reactive Protein Albumin Triglycerides HDL Cholesterol Vitamin B12 Folate 07/01/18 07/01/18 07/01/18 13:32 13:32 16:27 WBC RBC Hgb Hct MCV MCH RDW Plt Count Lymph % (Auto) Lymph # Baso # Seg Neutrophils % Seg Neuts % (Manual) Lymphocytes % (Manual) Nucleated RBC % Seg Neutrophils # Seg Neutrophils # Man Lymphocytes # (Manual) Monocytes # (Manual) D-Dimer Heparin Anti-Xa Level Sodium Potassium Chloride Carbon Dioxide BUN Creatinine Glucose POC Glucose 149 H Lactic Acid 2.20 H* Calcium ALT Troponin T C-Reactive Protein 7.40 H Albumin Triglycerides HDL Cholesterol Vitamin B12 Folate 07/01/18 07/01/18 07/02/18 19:35 21:36 05:22 WBC RBC Hgb Hct MCV MCH RDW Plt Count Lymph % (Auto) Lymph # Baso # Seg Neutrophils % Seg Neuts % (Manual) Lymphocytes % (Manual) Nucleated RBC % Seg Neutrophils # Seg Neutrophils # Man Lymphocytes # (Manual) Monocytes # (Manual) D-Dimer Heparin Anti-Xa Level Sodium Potassium Chloride Carbon Dioxide BUN Creatinine Glucose POC Glucose 129 H Lactic Acid 2.60 H* 2.20 H* Calcium ALT Troponin T C-Reactive Protein Albumin Triglycerides HDL Cholesterol Vitamin B12 Folate 07/02/18 07/02/18 07/02/18 05:22 05:22 07:11 WBC 12.6 H RBC 3.51 L Hgb Hct MCV 105 H MCH 35 H RDW Plt Count 132 L Lymph % (Auto) Lymph # Baso # Seg Neutrophils % Seg Neuts % (Manual) 92.0 H Lymphocytes % (Manual) 2.0 L Nucleated RBC % Seg Neutrophils # Seg Neutrophils # Man 11.6 H Lymphocytes # (Manual) 0.3 L Monocytes # (Manual) D-Dimer Heparin Anti-Xa Level Sodium 131 L Potassium 3.3 L Chloride 93.1 L Carbon Dioxide BUN 31 H Creatinine 7.5 H Glucose 228 H POC Glucose 215 H Lactic Acid Calcium 7.7 L ALT Troponin T C-Reactive Protein Albumin Triglycerides HDL Cholesterol Vitamin B12 Folate 07/02/18 07/02/18 07/03/18 15:35 21:56 10:56 WBC RBC Hgb Hct MCV MCH RDW Plt Count Lymph % (Auto) Lymph # Baso # Seg Neutrophils % Seg Neuts % (Manual) Lymphocytes % (Manual) Nucleated RBC % Seg Neutrophils # Seg Neutrophils # Man Lymphocytes # (Manual) Monocytes # (Manual) D-Dimer Heparin Anti-Xa Level Sodium 130 L Potassium Chloride 91.6 L Carbon Dioxide BUN 33 H Creatinine 7.8 H Glucose POC Glucose 123 H 135 H Lactic Acid Calcium 7.7 L ALT Troponin T C-Reactive Protein Albumin Triglycerides HDL Cholesterol Vitamin B12 Folate 07/03/18 07/03/18 07/03/18 11:00 21:03 22:06 WBC 11.9 H RBC 3.59 L Hgb Hct MCV 103 H MCH 35 H RDW Plt Count Lymph % (Auto) Lymph # Baso # Seg Neutrophils % Seg Neuts % (Manual) 94.0 H Lymphocytes % (Manual) 5.0 L Nucleated RBC % Seg Neutrophils # Seg Neutrophils # Man 11.2 H Lymphocytes # (Manual) 0.6 L Monocytes # (Manual) D-Dimer Heparin Anti-Xa Level 0.28 L Sodium Potassium Chloride Carbon Dioxide BUN Creatinine Glucose POC Glucose 177 H Lactic Acid Calcium ALT Troponin T C-Reactive Protein Albumin Triglycerides HDL Cholesterol Vitamin B12 Folate 07/04/18 07/04/18 07/04/18 01:08 05:22 05:22 WBC 13.1 H RBC Hgb Hct MCV 104 H MCH 35 H RDW Plt Count 139 L Lymph % (Auto) 5.0 L Lymph # 0.7 L Baso # 0.2 H Seg Neutrophils % 87.7 H Seg Neuts % (Manual) Lymphocytes % (Manual) Nucleated RBC % Seg Neutrophils # 11.5 H Seg Neutrophils # Man Lymphocytes # (Manual) Monocytes # (Manual) D-Dimer Heparin Anti-Xa Level Sodium 132 L Potassium 3.1 L Chloride 92.4 L Carbon Dioxide BUN 30 H Creatinine 7.4 H Glucose 113 H POC Glucose 106 H Lactic Acid Calcium 7.8 L ALT Troponin T C-Reactive Protein Albumin Triglycerides HDL Cholesterol Vitamin B12 Folate 07/04/18 07/04/18 07/04/18 05:22 12:15 14:59 WBC RBC Hgb Hct MCV MCH RDW Plt Count Lymph % (Auto) Lymph # Baso # Seg Neutrophils % Seg Neuts % (Manual) Lymphocytes % (Manual) Nucleated RBC % Seg Neutrophils # Seg Neutrophils # Man Lymphocytes # (Manual) Monocytes # (Manual) D-Dimer Heparin Anti-Xa Level 1.31 H 1.70 H Sodium Potassium Chloride Carbon Dioxide BUN Creatinine Glucose POC Glucose 200 H Lactic Acid Calcium ALT Troponin T C-Reactive Protein Albumin Triglycerides HDL Cholesterol Vitamin B12 Folate 07/04/18 07/05/18 07/05/18 20:56 06:17 06:17 WBC RBC 3.51 L Hgb Hct MCV 104 H MCH 35 H RDW Plt Count Lymph % (Auto) 7.8 L Lymph # 0.7 L Baso # Seg Neutrophils % 85.2 H Seg Neuts % (Manual) Lymphocytes % (Manual) Nucleated RBC % Seg Neutrophils # Seg Neutrophils # Man Lymphocytes # (Manual) Monocytes # (Manual) D-Dimer Heparin Anti-Xa Level Sodium 132 L Potassium 3.1 L Chloride 92.7 L Carbon Dioxide BUN 29 H Creatinine 7.3 H Glucose 115 H POC Glucose 133 H Lactic Acid Calcium 7.9 L ALT Troponin T C-Reactive Protein Albumin Triglycerides HDL Cholesterol Vitamin B12 Folate 07/05/18 07/06/18 07/06/18 23:47 06:53 06:53 WBC RBC 3.47 L Hgb Hct MCV 104 H MCH 35 H RDW Plt Count Lymph % (Auto) Lymph # Baso # Seg Neutrophils % Seg Neuts % (Manual) 93.0 H Lymphocytes % (Manual) 2.0 L Nucleated RBC % Seg Neutrophils # Seg Neutrophils # Man 8.6 H Lymphocytes # (Manual) 0.2 L Monocytes # (Manual) D-Dimer Heparin Anti-Xa Level Sodium 132 L Potassium 3.2 L Chloride 94.5 L Carbon Dioxide BUN 32 H Creatinine 8.7 H Glucose 106 H POC Glucose 112 H Lactic Acid Calcium 7.8 L ALT Troponin T C-Reactive Protein Albumin Triglycerides HDL Cholesterol Vitamin B12 Folate 07/06/18 07/06/18 07/07/18 16:23 22:56 07:56 WBC RBC Hgb Hct MCV MCH RDW Plt Count Lymph % (Auto) Lymph # Baso # Seg Neutrophils % Seg Neuts % (Manual) Lymphocytes % (Manual) Nucleated RBC % Seg Neutrophils # Seg Neutrophils # Man Lymphocytes # (Manual) Monocytes # (Manual) D-Dimer Heparin Anti-Xa Level Sodium Potassium Chloride Carbon Dioxide BUN Creatinine Glucose POC Glucose 126 H 139 H 181 H Lactic Acid Calcium ALT Troponin T C-Reactive Protein Albumin Triglycerides HDL Cholesterol Vitamin B12 Folate 07/07/18 07/07/18 07/07/18 09:35 09:35 12:52 WBC RBC Hgb Hct MCV 105 H MCH 35 H RDW Plt Count Lymph % (Auto) 6.3 L Lymph # 0.6 L Baso # Seg Neutrophils % 87.9 H Seg Neuts % (Manual) Lymphocytes % (Manual) Nucleated RBC % Seg Neutrophils # 8.2 H Seg Neutrophils # Man Lymphocytes # (Manual) Monocytes # (Manual) D-Dimer Heparin Anti-Xa Level Sodium 130 L Potassium 3.4 L Chloride 90.3 L Carbon Dioxide BUN 29 H Creatinine 8.0 H Glucose 201 H POC Glucose 161 H Lactic Acid Calcium 8.0 L ALT Troponin T C-Reactive Protein Albumin Triglycerides HDL Cholesterol Vitamin B12 Folate 07/07/18 07/08/18 07/08/18 21:56 05:19 05:19 WBC 12.7 H RBC Hgb Hct MCV 104 H MCH 35 H RDW Plt Count Lymph % (Auto) Lymph # Baso # Seg Neutrophils % Seg Neuts % (Manual) 92.0 H Lymphocytes % (Manual) 5.0 L Nucleated RBC % 1.0 H Seg Neutrophils # Seg Neutrophils # Man 11.7 H Lymphocytes # (Manual) 0.6 L Monocytes # (Manual) D-Dimer Heparin Anti-Xa Level Sodium 134 L Potassium 3.4 L Chloride 93.6 L Carbon Dioxide BUN 30 H Creatinine 8.0 H Glucose 184 H POC Glucose 162 H Lactic Acid Calcium ALT Troponin T C-Reactive Protein Albumin Triglycerides HDL Cholesterol Vitamin B12 Folate 07/08/18 07/08/18 07/08/18 05:19 05:19 08:25 WBC RBC Hgb Hct MCV MCH RDW Plt Count Lymph % (Auto) Lymph # Baso # Seg Neutrophils % Seg Neuts % (Manual) Lymphocytes % (Manual) Nucleated RBC % Seg Neutrophils # Seg Neutrophils # Man Lymphocytes # (Manual) Monocytes # (Manual) D-Dimer Heparin Anti-Xa Level Sodium Potassium Chloride Carbon Dioxide BUN Creatinine Glucose POC Glucose 200 H Lactic Acid Calcium ALT Troponin T C-Reactive Protein Albumin Triglycerides HDL Cholesterol Vitamin B12 1416 H Folate 2.39 L 07/08/18 07/08/18 07/08/18 11:48 16:14 21:53 WBC RBC Hgb Hct MCV MCH RDW Plt Count Lymph % (Auto) Lymph # Baso # Seg Neutrophils % Seg Neuts % (Manual) Lymphocytes % (Manual) Nucleated RBC % Seg Neutrophils # Seg Neutrophils # Man Lymphocytes # (Manual) Monocytes # (Manual) D-Dimer Heparin Anti-Xa Level Sodium Potassium Chloride Carbon Dioxide BUN Creatinine Glucose POC Glucose 202 H 176 H 219 H Lactic Acid Calcium ALT Troponin T C-Reactive Protein Albumin Triglycerides HDL Cholesterol Vitamin B12 Folate 07/09/18 07/09/18 07/09/18 07:50 09:51 09:51 WBC 15.8 H RBC Hgb Hct 43.4 H MCV 105 H MCH 34 H RDW Plt Count Lymph % (Auto) Lymph # Baso # Seg Neutrophils % Seg Neuts % (Manual) 94.0 H Lymphocytes % (Manual) 3.0 L Nucleated RBC % 1.0 H Seg Neutrophils # Seg Neutrophils # Man 14.9 H Lymphocytes # (Manual) 0.5 L Monocytes # (Manual) D-Dimer Heparin Anti-Xa Level Sodium 135 L Potassium Chloride 95.5 L Carbon Dioxide BUN 29 H Creatinine 8.4 H Glucose 204 H POC Glucose 163 H Lactic Acid Calcium ALT Troponin T C-Reactive Protein Albumin Triglycerides HDL Cholesterol Vitamin B12 Folate 07/09/18 07/09/18 07/09/18 11:50 18:47 22:16 WBC RBC Hgb Hct MCV MCH RDW Plt Count Lymph % (Auto) Lymph # Baso # Seg Neutrophils % Seg Neuts % (Manual) Lymphocytes % (Manual) Nucleated RBC % Seg Neutrophils # Seg Neutrophils # Man Lymphocytes # (Manual) Monocytes # (Manual) D-Dimer Heparin Anti-Xa Level Sodium Potassium Chloride Carbon Dioxide BUN Creatinine Glucose POC Glucose 156 H 176 H 189 H Lactic Acid Calcium ALT Troponin T C-Reactive Protein Albumin Triglycerides HDL Cholesterol Vitamin B12 Folate 07/10/18 07/10/18 07/10/18 05:35 08:22 08:52 WBC 17.9 H RBC Hgb Hct MCV 105 H MCH 34 H RDW Plt Count Lymph % (Auto) Lymph # Baso # Seg Neutrophils % Seg Neuts % (Manual) 87.0 H Lymphocytes % (Manual) 6.0 L Nucleated RBC % Seg Neutrophils # Seg Neutrophils # Man 15.6 H Lymphocytes # (Manual) 1.1 L Monocytes # (Manual) 1.1 H D-Dimer Heparin Anti-Xa Level Sodium 135 L Potassium Chloride 92.8 L Carbon Dioxide BUN 27 H Creatinine 7.5 H Glucose 175 H POC Glucose 129 H Lactic Acid Calcium ALT Troponin T C-Reactive Protein Albumin Triglycerides HDL Cholesterol Vitamin B12 Folate 07/10/18 07/10/18 07/10/18 11:47 18:22 21:32 WBC RBC Hgb Hct MCV MCH RDW Plt Count Lymph % (Auto) Lymph # Baso # Seg Neutrophils % Seg Neuts % (Manual) Lymphocytes % (Manual) Nucleated RBC % Seg Neutrophils # Seg Neutrophils # Man Lymphocytes # (Manual) Monocytes # (Manual) D-Dimer Heparin Anti-Xa Level Sodium Potassium Chloride Carbon Dioxide BUN Creatinine Glucose POC Glucose 189 H 211 H 306 H Lactic Acid Calcium ALT Troponin T C-Reactive Protein Albumin Triglycerides HDL Cholesterol Vitamin B12 Folate 07/11/18 07/11/18 07/11/18 04:10 07:36 11:49 WBC 19.4 H RBC Hgb Hct MCV 107 H MCH 35 H RDW 15.3 H Plt Count Lymph % (Auto) Lymph # Baso # Seg Neutrophils % Seg Neuts % (Manual) 89.0 H Lymphocytes % (Manual) 4.0 L Nucleated RBC % Seg Neutrophils # Seg Neutrophils # Man 17.3 H Lymphocytes # (Manual) 0.8 L Monocytes # (Manual) D-Dimer Heparin Anti-Xa Level Sodium Potassium Chloride Carbon Dioxide BUN Creatinine Glucose POC Glucose 113 H 123 H Lactic Acid Calcium ALT Troponin T C-Reactive Protein Albumin Triglycerides HDL Cholesterol Vitamin B12 Folate 07/11/18 07/11/18 07/12/18 17:35 23:28 00:48 WBC 17.0 H RBC Hgb Hct MCV 106 H MCH 35 H RDW Plt Count Lymph % (Auto) Lymph # Baso # Seg Neutrophils % Seg Neuts % (Manual) 92.0 H Lymphocytes % (Manual) 3.0 L Nucleated RBC % Seg Neutrophils # Seg Neutrophils # Man 15.6 H Lymphocytes # (Manual) 0.5 L Monocytes # (Manual) 0.9 H D-Dimer Heparin Anti-Xa Level Sodium Potassium Chloride Carbon Dioxide BUN Creatinine Glucose POC Glucose 207 H 188 H Lactic Acid Calcium ALT Troponin T C-Reactive Protein Albumin Triglycerides HDL Cholesterol Vitamin B12 Folate 07/12/18 07/12/18 07/12/18 04:05 09:21 12:05 WBC RBC Hgb Hct MCV MCH RDW Plt Count Lymph % (Auto) Lymph # Baso # Seg Neutrophils % Seg Neuts % (Manual) Lymphocytes % (Manual) Nucleated RBC % Seg Neutrophils # Seg Neutrophils # Man Lymphocytes # (Manual) Monocytes # (Manual) D-Dimer Heparin Anti-Xa Level Sodium Potassium Chloride Carbon Dioxide BUN Creatinine Glucose POC Glucose 147 H 125 H 113 H Lactic Acid Calcium ALT Troponin T C-Reactive Protein Albumin Triglycerides HDL Cholesterol Vitamin B12 Folate 07/12/18 07/13/18 07/13/18 22:25 05:28 05:28 WBC 15.5 H RBC 3.62 L Hgb Hct MCV 105 H MCH 34 H RDW Plt Count Lymph % (Auto) Lymph # Baso # Seg Neutrophils % Seg Neuts % (Manual) 99.0 H Lymphocytes % (Manual) 1.0 L Nucleated RBC % Seg Neutrophils # Seg Neutrophils # Man 15.3 H Lymphocytes # (Manual) 0.2 L Monocytes # (Manual) D-Dimer Heparin Anti-Xa Level Sodium 133 L Potassium Chloride 95.0 L Carbon Dioxide BUN 43 H Creatinine 9.1 H Glucose 124 H POC Glucose 162 H Lactic Acid Calcium 8.0 L ALT Troponin T C-Reactive Protein Albumin Triglycerides HDL Cholesterol Vitamin B12 Folate 07/13/18 07/13/18 07/13/18 07:59 11:40 16:41 WBC RBC Hgb Hct MCV MCH RDW Plt Count Lymph % (Auto) Lymph # Baso # Seg Neutrophils % Seg Neuts % (Manual) Lymphocytes % (Manual) Nucleated RBC % Seg Neutrophils # Seg Neutrophils # Man Lymphocytes # (Manual) Monocytes # (Manual) D-Dimer Heparin Anti-Xa Level Sodium Potassium Chloride Carbon Dioxide BUN Creatinine Glucose POC Glucose 191 H 195 H 204 H Lactic Acid Calcium ALT Troponin T C-Reactive Protein Albumin Triglycerides HDL Cholesterol Vitamin B12 Folate 07/13/18 07/14/18 07/14/18 22:38 04:15 04:15 WBC 13.1 H RBC Hgb Hct MCV 107 H MCH 34 H RDW Plt Count Lymph % (Auto) Lymph # Baso # Seg Neutrophils % Seg Neuts % (Manual) 89.0 H Lymphocytes % (Manual) 6.0 L Nucleated RBC % Seg Neutrophils # Seg Neutrophils # Man 11.7 H Lymphocytes # (Manual) 0.8 L Monocytes # (Manual) D-Dimer Heparin Anti-Xa Level Sodium 136 L Potassium Chloride 95.3 L Carbon Dioxide BUN 40 H Creatinine 8.1 H Glucose POC Glucose 190 H Lactic Acid Calcium ALT Troponin T C-Reactive Protein Albumin Triglycerides HDL Cholesterol Vitamin B12 Folate 07/14/18 07/14/18 07/14/18 07:57 12:18 17:24 WBC RBC Hgb Hct MCV MCH RDW Plt Count Lymph % (Auto) Lymph # Baso # Seg Neutrophils % Seg Neuts % (Manual) Lymphocytes % (Manual) Nucleated RBC % Seg Neutrophils # Seg Neutrophils # Man Lymphocytes # (Manual) Monocytes # (Manual) D-Dimer Heparin Anti-Xa Level Sodium Potassium Chloride Carbon Dioxide BUN Creatinine Glucose POC Glucose 205 H 180 H 249 H Lactic Acid Calcium ALT Troponin T C-Reactive Protein Albumin Triglycerides HDL Cholesterol Vitamin B12 Folate 07/14/18 07/15/18 07/15/18 22:19 06:42 06:42 WBC 11.9 H RBC Hgb Hct MCV 105 H MCH 34 H RDW Plt Count Lymph % (Auto) 6.4 L Lymph # 0.8 L Baso # Seg Neutrophils % 89.6 H Seg Neuts % (Manual) Lymphocytes % (Manual) Nucleated RBC % Seg Neutrophils # 10.6 H Seg Neutrophils # Man Lymphocytes # (Manual) Monocytes # (Manual) D-Dimer Heparin Anti-Xa Level Sodium 131 L Potassium 3.5 L Chloride 94.3 L Carbon Dioxide BUN 36 H Creatinine 7.0 H Glucose 166 H POC Glucose 156 H Lactic Acid Calcium 8.1 L ALT Troponin T C-Reactive Protein Albumin Triglycerides HDL Cholesterol Vitamin B12 Folate 07/15/18 07/15/18 07/15/18 08:12 11:46 15:44 WBC RBC Hgb Hct MCV MCH RDW Plt Count Lymph % (Auto) Lymph # Baso # Seg Neutrophils % Seg Neuts % (Manual) Lymphocytes % (Manual) Nucleated RBC % Seg Neutrophils # Seg Neutrophils # Man Lymphocytes # (Manual) Monocytes # (Manual) D-Dimer Heparin Anti-Xa Level Sodium Potassium Chloride Carbon Dioxide BUN Creatinine Glucose POC Glucose 187 H 201 H 169 H Lactic Acid Calcium ALT Troponin T C-Reactive Protein Albumin Triglycerides HDL Cholesterol Vitamin B12 Folate 07/15/18 07/16/18 07/16/18 23:09 00:22 01:52 WBC RBC Hgb Hct MCV MCH RDW Plt Count Lymph % (Auto) Lymph # Baso # Seg Neutrophils % Seg Neuts % (Manual) Lymphocytes % (Manual) Nucleated RBC % Seg Neutrophils # Seg Neutrophils # Man Lymphocytes # (Manual) Monocytes # (Manual) D-Dimer Heparin Anti-Xa Level Sodium Potassium Chloride Carbon Dioxide BUN Creatinine Glucose 234 H POC Glucose < 40 L 203 H Lactic Acid Calcium ALT Troponin T C-Reactive Protein Albumin Triglycerides HDL Cholesterol Vitamin B12 Folate 07/16/18 07/16/18 07/16/18 04:22 05:12 05:12 WBC 14.0 H RBC 3.58 L Hgb Hct MCV 106 H MCH 34 H RDW Plt Count Lymph % (Auto) Lymph # Baso # Seg Neutrophils % Seg Neuts % (Manual) 92.0 H Lymphocytes % (Manual) 4.0 L Nucleated RBC % Seg Neutrophils # Seg Neutrophils # Man 12.9 H Lymphocytes # (Manual) 0.6 L Monocytes # (Manual) D-Dimer Heparin Anti-Xa Level Sodium 130 L Potassium 2.9 L* Chloride 92.9 L Carbon Dioxide BUN 38 H Creatinine 6.8 H Glucose 194 H POC Glucose 194 H Lactic Acid Calcium ALT Troponin T C-Reactive Protein Albumin Triglycerides HDL Cholesterol Vitamin B12 Folate 07/16/18 07/16/18 07/16/18 08:45 12:22 16:42 WBC RBC Hgb Hct MCV MCH RDW Plt Count Lymph % (Auto) Lymph # Baso # Seg Neutrophils % Seg Neuts % (Manual) Lymphocytes % (Manual) Nucleated RBC % Seg Neutrophils # Seg Neutrophils # Man Lymphocytes # (Manual) Monocytes # (Manual) D-Dimer Heparin Anti-Xa Level Sodium Potassium Chloride Carbon Dioxide BUN Creatinine Glucose POC Glucose 155 H 208 H 143 H Lactic Acid Calcium ALT Troponin T C-Reactive Protein Albumin Triglycerides HDL Cholesterol Vitamin B12 Folate 07/16/18 07/17/18 22:02 04:32 WBC RBC Hgb Hct MCV MCH RDW Plt Count Lymph % (Auto) Lymph # Baso # Seg Neutrophils % Seg Neuts % (Manual) Lymphocytes % (Manual) Nucleated RBC % Seg Neutrophils # Seg Neutrophils # Man Lymphocytes # (Manual) Monocytes # (Manual) D-Dimer Heparin Anti-Xa Level Sodium 131 L Potassium Chloride 93.6 L Carbon Dioxide BUN 45 H Creatinine 7.2 H Glucose POC Glucose 115 H Lactic Acid Calcium ALT Troponin T C-Reactive Protein Albumin Triglycerides HDL Cholesterol Vitamin B12 Folate Allied health notes reviewed: nursing
[2018-07-17] MEDS ORDERED: NACL 0.9 (PRIMING MACHINE ONLY DIALYSIS) MC ONE (19:41)
[2018-07-17] MEDS: MAXIPIME/NS 1 GM/100 ML 1 GM/100 ML BAG IV SCH (21:39)
[2018-07-18 01:11] LABS: Hematocrit 36.4 % (30.3-42.9); Hemoglobin 11.8 gm/dl (10.1-14.3); Mean Corpuscular HGB Conc 33 % (30-34); Mean Corpuscular Volume 106 fl (79-97); Platelet Count 219 K/mm3 (140-440); Red Blood Count 3.43 M/mm3 (3.65-5.03); Red Cell Distribution Width 15.6 % (13.2-15.2)
[2018-07-18 04:59] LABS: Anisocytosis Few; Band Neutrophils # (Manual) 0.8 K/mm3; Basophils % (Manual) 0 % (0.0-1.8); Eosinophils % (Manual) 0 % (0.0-4.3); Large Platelets Few; Target Cells Few; Total Cells Counted 100
[2018-07-18 05:00] LABS: Giant Platelets Rare
[2018-07-18 05:42] LABS: Calcium 7.5 mg/dL (8.4-10.2)
[2018-07-18] MEDS: HumaLOG SUB-Q SCH ×4 (07:12→21:50)
[2018-07-18] MEDS: RENVELA PO SCH ×3 (07:13→17:50)
[2018-07-18] MEDS: PROAMATINE PO SCH ×6 (07:25→23:40)
--- NOTE | 2018-07-18 08:15 | Hem/Onc Progress Note ---
Assessment and Plan 1. Left leg deep venous thrombosis. The patient was on heparin drip. The patient is on peritoneal dialysis. The dose of Eliquis or any direct thrombin inhibitors or other anticoagulation monitoring may become challenging. 2. MCV elevated. We will follow - low folate - on Rx. 3. Elevated D-dimers. - DVT - Rx eliquis 4. History of renal failure,was on peritoneal dialysis. Later HD 5. History of hypertension. She was hypotensive at admission. 6. History of diabetes. 7. I will follow the patient during inpatient stay and then in the clinic setting for anticoagulation management. 8 - fever Issues - Id following - on Abx 07/05 - d/w dr cartagena - pharmacy to help reg NOAC - ? eliquis 2.5 q 12? 07/06 - pharmacy has placed pt on 5 mg q 12 07/08 - pt on eliquis - d/w dr noyola - Placement pending gets PD 07/09 - pt had fever on eliquis for left leg dvt. h/o abdo discomfort - on and off 07/10/2018 DVT - on eliquis c/o abdo discomfort - d/w dr andrade - US abdo elevated MCV - low folate - replace ESRD on PD h/o fever 07/11 US abdo done - report pending Leukocytosis - seen by ID on eliquis 07/13/2018 pt says PD catheter not working US abdo done ID - for Abx eliquis for DVT 07/14 DVT - eliquis WBC high - on Abx MCV elevated - low folate - on Rx on Pd 07/15 dvt - on eliquis h/o anemia - on procrit - folic acid on PD for CKD OP follow up from hem perspective 07/16 HD cath PD cath removal being looked into DVT - on eliquis - reviewed dose for HD 07/17 DVT leg - on eliquis anemia - procrit for HD folic acid 07/18 PD cath infection - removal planned DVT on eliquis has HD cath h/o fever - ID following - Patient Problems (1) DVT (deep venous thrombosis) Current Visit: Yes Status: Acute Qualifiers: DVT location: lower extremity Chronicity: acute Subjective Date of service: 07/18/18 Principal diagnosis: dvt left leg Interval history: PD cath being removed Objective - Constitutional Vitals: Last Vital Signs Temp 99.2 F 07/18/18 07:10 Pulse 102 H 07/18/18 07:10 Resp 18 07/18/18 07:10 BP 85/44 07/18/18 07:10 Pulse Ox 93 07/18/18 07:10 Pain Intensity (0-10): denies any pain General appearance: no acute distress Performance status: 3-limited selfcare - EENT Eyes: EOM intact ENT: hearing intact, clear oral mucosa Lymph node exam: negative cervical - Neck Neck: normal ROM - Respiratory Respiratory effort: Positive: normal Respiratory: bilateral: CTA - Cardiovascular Heart Sounds: Present: S1 & S2 Extremities: No edema - Gastrointestinal General gastrointestinal: Present: soft, other (bandage) Rectal Exam: deferred - Genitourinary Female genitourinary: Present: deferred - Integumentary Integumentary: warm - Musculoskeletal Musculoskeletal: generalized weakness - Neurologic Neurologic: moves all extremities - Labs Lab Results: Laboratory Results - last 24 hr 07/17/18 07/17/18 07/18/18 16:42 20:41 00:56 WBC 13.9 H RBC 3.43 L Hgb 11.8 Hct 36.4 MCV 106 H MCH 35 H MCHC 33 RDW 15.6 H Plt Count 219 Add Manual Diff Complete Total Counted 100 Seg Neutrophils % Barrel Ribs Sol[place] Seg Neuts % (Manual) 88.0 H Band Neutrophils % 6.0 Lymphocytes % (Manual) 2.0 L Reactive Lymphs % (Man) 0 Monocytes % (Manual) 4.0 Eosinophils % (Manual) 0 Basophils % (Manual) 0 Metamyelocytes % 0 Myelocytes % 0 Promyelocytes % 0 Blast Cells % 0 Nucleated RBC % Not Reportable Seg Neutrophils # Man 12.2 H Band Neutrophils # 0.8 Lymphocytes # (Manual) 0.3 L Abs React Lymphs (Man) 0.0 Monocytes # (Manual) 0.6 Eosinophils # (Manual) 0.0 Basophils # (Manual) 0.0 Metamyelocytes # 0.0 Myelocytes # 0.0 Promyelocytes # 0.0 Blast Cells # 0.0 WBC Morphology Not Reportable Hypersegmented Neuts Not Reportable Hyposegmented Neuts Not Reportable Hypogranular Neuts Not Reportable Smudge Cells Not Reportable Toxic Granulation Not Reportable Toxic Vacuolation Not Reportable Dohle Bodies Not Reportable Pelger-Huet Anomaly Not Reportable Nomi Rods Not Reportable Platelet Estimate Appears normal Clumped Platelets Not Reportable Plt Clumps, EDTA Not Reportable Large Platelets Few Giant Platelets Rare Platelet Satelliting Not Reportable Plt Morphology Comment Not Reportable RBC Morphology Not Reportable Dimorphic RBCs Not Reportable Polychromasia Not Reportable Hypochromasia Not Reportable Poikilocytosis Not Reportable Anisocytosis Few Microcytosis Not Reportable Macrocytosis Not Reportable Spherocytes Not Reportable Pappenheimer Bodies Not Reportable Sickle Cells Not Reportable Target Cells Few Tear Drop Cells Not Reportable Ovalocytes Not Reportable Helmet Cells Not Reportable [place] Bodies Not Reportable [place] Rings Not Reportable [place] Cells Not Reportable Bite Cells Not Reportable Crenated Cell Not Reportable Elliptocytes Not Reportable Acanthocytes (Spur) Not Reportable Rouleaux Not Reportable Hemoglobin C Crystals Not Reportable Schistocytes Not Reportable Malaria parasites Not Reportable Navneet Bodies Not Reportable Hem Pathologist Commnt No Sodium Potassium Chloride Carbon Dioxide Anion Gap BUN Creatinine Estimated GFR BUN/Creatinine Ratio Glucose POC Glucose 100 71 Calcium 07/18/18 07/18/18 04:23 07:11 WBC RBC Hgb Hct MCV MCH MCHC RDW Plt Count Add Manual Diff Total Counted Seg Neutrophils % Seg Neuts % (Manual) Band Neutrophils % Lymphocytes % (Manual) Reactive Lymphs % (Man) Monocytes % (Manual) Eosinophils % (Manual) Basophils % (Manual) Metamyelocytes % Myelocytes % Promyelocytes % Blast Cells % Nucleated RBC % Seg Neutrophils # Man Band Neutrophils # Lymphocytes # (Manual) Abs React Lymphs (Man) Monocytes # (Manual) Eosinophils # (Manual) Basophils # (Manual) Metamyelocytes # Myelocytes # Promyelocytes # Blast Cells # WBC Morphology Hypersegmented Neuts Hyposegmented Neuts Hypogranular Neuts Smudge Cells Toxic Granulation Toxic Vacuolation Dohle Bodies Pelger-Huet Anomaly Nomi Rods Platelet Estimate Clumped Platelets Plt Clumps, EDTA Large Platelets Giant Platelets Platelet Satelliting Plt Morphology Comment RBC Morphology Dimorphic RBCs Polychromasia Hypochromasia Poikilocytosis Anisocytosis Microcytosis Macrocytosis Spherocytes Pappenheimer Bodies Sickle Cells Target Cells Tear Drop Cells Ovalocytes Helmet Cells [place]hart[place] Bodies [place] Rings [place] Cells Bite Cells Crenated Cell Elliptocytes Acanthocytes (Spur) Rouleaux Hemoglobin C Crystals Schistocytes Malaria parasites Navneet Bodies Hem Pathologist Commnt Sodium 137 Potassium 4.2 Chloride 99.4 Carbon Dioxide 23 Anion Gap 19 BUN 22 H Creatinine 4.9 H Estimated GFR 11 BUN/Creatinine Ratio 4 Glucose 60 L POC Glucose 90 Calcium 7.5 L Medications & Allergies - Medications Allergies/Adverse Reactions: Allergies No Known Allergies Allergy (Verified 08/18/14 08:52) Home Medications: Home Medications Medication Instructions Recorded Confirmed Last Taken Type Calcitriol [Rocaltrol] 0.5 mcg PO QDAY 06/29/18 06/29/18 Unknown History Simvastatin [Zocor] 20 mg PO DAILY 06/29/18 06/29/18 Unknown History Apixaban [Eliquis] 5 mg PO Q12HR tablet 07/15/18 Unknown Rx Aspirin [Aspirin BABY CHEW TAB] 81 mg PO QDAY tab.chew 07/15/18 Unknown Rx AtorvaSTATin [Lipitor] 40 mg PO QHS tablet 07/15/18 Unknown Rx Cefepime/Ns 1 gm/100 ml 1 gm IV Q24HR 21 Days piggyback 07/15/18 Unknown Rx [Maxipime/Ns 1 gm/100 ml] Docusate Sodium [Colace CAP] 100 mg PO BID capsule 07/15/18 Unknown Rx Fludrocortisone [Florinef] 0.1 mg PO QDAY tablet 07/15/18 Unknown Rx Folic Acid [Folvite] 1 mg PO QDAY tablet 07/15/18 Unknown Rx Lactulose [Cephulac] 20 gm PO TID PRN oral.liqd 07/15/18 Unknown Rx Lispro Insulin [Humalog] 0 unit SUB-Q ACHS units 07/15/18 Unknown Rx Midodrine [Proamatine] 10 mg PO TID tablet 07/15/18 Unknown Rx Pantoprazole [Protonix TAB] 40 mg PO QDAY tablet 07/15/18 Unknown Rx Polyethylene Glycol 3350 [Miralax 17 gm PO QDAY powd.pack 07/15/18 Unknown Rx 3350] Sevelamer Carbonate [Renvela] 1,600 mg PO TIDWM tablet 07/15/18 Unknown Rx Active Medications: Generic Name Dose Route Start Last Admin Trade Name Freq PRN Reason Stop Dose Admin Acetaminophen 650 mg 07/15/18 12:55 07/15/18 13:53 Tylenol PO 650 mg Q4H PRN Administration Pain, Mild (1-3) Aspirin 81 mg 06/29/18 13:00 07/17/18 11:58 Baby Aspirin PO 81 mg QDAY DIANE Administration Atorvastatin Calcium 40 mg 06/29/18 22:00 07/17/18 21:50 Lipitor PO 40 mg QHS DIANE Administration Calcitriol 0.5 mcg 06/29/18 13:00 07/17/18 11:58 Rocaltrol PO 0.5 mcg QDAY DIANE Administration Docusate Sodium 100 mg 07/02/18 10:00 07/17/18 21:49 Colace PO 100 mg BID DIANE Administration Fludrocortisone Acetate 0.1 mg 07/15/18 14:00 07/17/18 11:58 Florinef PO 0.1 mg QDAY DIANE Administration Folic Acid 1 mg 07/10/18 14:00 07/17/18 11:58 Folvite PO 1 mg QDAY DIANE Administration Heparin Sodium (Porcine) 5,000 unit 07/16/18 18:52 Heparin IV THOMAS PRN hemodialysis Sodium Chloride 100 mls @ 999 mls/hr 07/16/18 18:52 Nacl 0.9% IV THOMAS PRN Hypotension Cefepime HCl 1 gm in 100 mls @ 200 mls/hr 07/16/18 22:00 07/17/18 21:39 Maxipime/Ns 1 Gm/100 Ml IV 200 mls/hr QHS DIANE Administration Protocol Vancomycin HCl 1 gm in 250 mls @ 167.007 mls/hr 07/17/18 18:00 07/17/18 17:05 Vancomycin/Ns 1 Gm/250 Ml IV 167.007 mls/hr [email or web address] DIANE Administration Insulin Human Lispro 0 unit 06/29/18 22:00 07/18/18 07:12 Humalog SUB-Q Not Given ACHS [facility] Protocol Lactulose 20 gm 07/13/18 12:00 Cephulac PO TID PRN Constipation Midodrine 10 mg 07/01/18 14:00 07/18/18 07:26 Proamatine PO 10 mg TID DIANE Administration Morphine Sulfate 2 mg 07/08/18 14:51 07/17/18 22:48 Morphine IV 2 mg Q4H PRN Administration Pain, Moderate (4-6) Pantoprazole Sodium 40 mg 07/08/18 10:00 07/17/18 11:59 Protonix PO 40 mg QDAY DIANE Administration Polyethylene Glycol 17 gm 07/02/18 10:00 07/17/18 11:57 Miralax 3350 PO Not Given QDAY DIANE Sevelamer Carbonate 1,600 mg 06/29/18 12:00 07/18/18 07:13 Renvela PO Not Given TIDWM DIANE
[2018-07-18] MEDS: BABY ASPIRIN PO SCH (09:05)
[2018-07-18] MEDS: FOLVITE PO SCH (09:06)
[2018-07-18] MEDS: COLACE PO SCH ×3 (09:06→22:03)
[2018-07-18] MEDS: ROCALTROL PO SCH (09:06)
[2018-07-18] MEDS: MIRALAX 3350 PO SCH (09:06)
[2018-07-18] MEDS: PROTONIX PO SCH (09:06)
[2018-07-18] MEDS: FLORINEF PO SCH (09:07)
--- NOTE | 2018-07-18 09:16 | Progress Note ---
Assessment and Plan Cultures: 06/29/2018 Blood culture: No growth 07/01/2018 peritoneal dialysate culture: No growth 07/08/2018 blood culture: No growth 07/10/2018 peritoneal fluid culture: many PMN's, no growth 07/12/2018 peritoneal fluid culture: many PMN's, no growth A/P: 67-year-old female with ESRD on peritoneal dialysis, hypertension, hyperlipidemia, diabetes mellitus type 2 who presented to the emergency room and was hospitalized on 06/29/2018 with complaints of fall. Now with: 1) Sepsis: Leukocytosis continuing. secondary to PD associated peritonitis. Chest x-ray without pneumonia, blood cultures with no growth. Patient doesn't make any urine, UTI unlikely. No report of diarrhea. CT abdomen shows moderate- sized umbilical hernia present containing adipose tissue. No herniated loops of bowel are seen. 2 ESRD on PD: Renally dose antibiotics. S/P Right IJ permacath placement Awaiting PD catheter removal. PD catheter removed today. Anticipate 2 weeks of Ceftazidime and Vancomycin post HD. 3) Left leg DVT: on anticoagulation. 4) Acute Encephalopathy: etio unclear. Recs: Continue cefepime and vancomycin renally adjusted, D9 Anticipate discharge on Ceftazidime IV 2gms Sunday, 2gms Sunday and 3 gms Sunday and Vancomycin 1gm post HD for 2 weeks ending 08-01-18 Order placed with Case management EDUARDO [facility] M: [id number] O:[phone] Subjective Date of service: 07/18/18 Principal diagnosis: dvt leg Interval history: Patient seen and examined. Awake, Alert but confused today. No fevers. Objective - Exam Narrative Exam: Constitutional: Alert, cooperative. No acute distress Head, Ears, Nose: Normocephalic, atraumatic. External ears, nose normal Eyes: Conjunctivae/corneas clear. No icterus. No ptosis. Neck: Supple, no meningeal signs Oral: mucosa moist, no thrush Cardiovascular: S1, S2 normal. Respiratory: Good air entry, clear to auscultation bilaterally GI: Soft, mildly tender,+ small drainage at PD site. Musculoskeletal: No pedal edema, no cyanosis. Skin: No rash or abscess Hem/Lymphatic: No palpable cervical or supraclavicular nodes. No lymphangitis Psych: Mood ok. Affect normal Neurological: Awake, alert, increased confusion today. Lines: Right IJ Permacath - Constitutional Vitals: Vital Signs Temp Pulse Resp BP Pulse Ox 99.2 F 102 H 18 85/44 93 07/18/18 07:10 07/18/18 07:10 07/18/18 07:10 07/18/18 07:10 07/18/18 07:10 Temperature -Last 24 Hours Temperature 99.2 F Temperature 98.6 F Temperature 98.8 F Temperature 98.6 F Temperature 97.4 F Temperature 98.4 F - Labs CBC & Chem 7: 07/18/18 00:56 07/18/18 04:23 Labs: Abnormal lab results 07/18/18 07/18/18 Range/Units 00:56 04:23 WBC 13.9 H (4.5-11.0) K/mm3 RBC 3.43 L (3.65-5.03) M/mm3 MCV 106 H (79-97) fl MCH 35 H (28-32) pg RDW 15.6 H (13.2-15.2) % Seg Neuts % (Manual) 88.0 H (40.0-70.0) % Lymphocytes % (Manual) 2.0 L (13.4-35.0) % Seg Neutrophils # Man 12.2 H (1.8-7.7) K/mm3 Lymphocytes # (Manual) 0.3 L (1.2-5.4) K/mm3 BUN 22 H (7-17) mg/dL Creatinine 4.9 H (0.7-1.2) mg/dL Glucose 60 L (65-100) mg/dL Calcium 7.5 L (8.4-10.2) mg/dL
--- NOTE | 2018-07-18 12:08 | Progress Note ---
Assessment and Plan Impression: * End stage renal disease on PD * Catheter associated peritonitis * LE DVT * Elevated troponin --TTE: LVEF 55-60% --Strest shannon: nml perfusion, nml LV function * Hypokalemia * Secondary hyperparathyroidism * Erythrocytosis, resolved - ?secondary to hemoconcentration vs other --Renal u/s: no mass, small bilateral cysts Plan: * Patient is s/p permcath placement * HD - MWF * UF as tolerated * Surgery note reviewed. plans for PD catheter removal * abx per id * Anticoagulation per primary team * Replete lytes prn * Renal diet * Dose medications for renal function Subjective Date of service: 07/18/18 Principal diagnosis: dvt leg Interval history: resting well in bed today Objective - Exam Narrative Exam: General appearance: well-developed, well-nourished, appears stated age EENT: PERRL, mucous membranes moist Neck: no JVD, no thyromegaly, no carotid bruit, supple Respiratory: Present: Clear to Ascultation Cardiology: regular, normal heart rate Gastrointestinal: normoactive bowel sounds, tenderness (mild diffuse tenderness) Integumentary: no rash, other (no edema) - Vital Signs Vital signs: Vital Signs - 12hr 07/18/18 07/18/18 07/18/18 02:37 07:00 07:10 Temperature 98.6 F 99.2 F Pulse Rate 103 H 102 H Pulse Rate [ From Monitor] Respiratory 20 18 Rate Blood Pressure 95/56 85/44 Blood Pressure 88/41 [Left] O2 Sat by Pulse 92 93 Oximetry 07/18/18 07/18/18 09:18 09:29 Temperature Pulse Rate Pulse Rate [ 102 H From Monitor] Respiratory Rate Blood Pressure Blood Pressure 98/58 [Left] O2 Sat by Pulse 93 Oximetry - Lab 07/18/18 00:56 07/18/18 04:23 Most recent lab results Calcium 7.5 mg/dL (8.4-10.2) L 07/18/18 04:23 Medications & Allergies - Medications Allergies/Adverse Reactions: Allergies No Known Allergies Allergy (Verified 08/18/14 08:52) Home Medications: Home Medications Medication Instructions Recorded Confirmed Last Taken Type Calcitriol [Rocaltrol] 0.5 mcg PO QDAY 06/29/18 06/29/18 Unknown History Simvastatin [Zocor] 20 mg PO DAILY 06/29/18 06/29/18 Unknown History Apixaban [Eliquis] 5 mg PO Q12HR tablet 07/15/18 Unknown Rx Aspirin [Aspirin BABY CHEW TAB] 81 mg PO QDAY tab.chew 07/15/18 Unknown Rx AtorvaSTATin [Lipitor] 40 mg PO QHS tablet 07/15/18 Unknown Rx Cefepime/Ns 1 gm/100 ml 1 gm IV Q24HR 21 Days piggyback 07/15/18 Unknown Rx [Maxipime/Ns 1 gm/100 ml] Docusate Sodium [Colace CAP] 100 mg PO BID capsule 07/15/18 Unknown Rx Fludrocortisone [Florinef] 0.1 mg PO QDAY tablet 07/15/18 Unknown Rx Folic Acid [Folvite] 1 mg PO QDAY tablet 07/15/18 Unknown Rx Lactulose [Cephulac] 20 gm PO TID PRN oral.liqd 07/15/18 Unknown Rx Lispro Insulin [Humalog] 0 unit SUB-Q ACHS units 07/15/18 Unknown Rx Midodrine [Proamatine] 10 mg PO TID tablet 07/15/18 Unknown Rx Pantoprazole [Protonix TAB] 40 mg PO QDAY tablet 07/15/18 Unknown Rx Polyethylene Glycol 3350 [Miralax 17 gm PO QDAY powd.pack 07/15/18 Unknown Rx 3350] Sevelamer Carbonate [Renvela] 1,600 mg PO TIDWM tablet 07/15/18 Unknown Rx Active Medications: Generic Name Dose Route Start Last Admin Trade Name Freq PRN Reason Stop Dose Admin Acetaminophen 650 mg 07/15/18 12:55 07/15/18 13:53 Tylenol PO 650 mg Q4H PRN Administration Pain, Mild (1-3) Aspirin 81 mg 06/29/18 13:00 07/18/18 09:05 Baby Aspirin PO Not Given QDAY DIANE Atorvastatin Calcium 40 mg 06/29/18 22:00 07/17/18 21:50 Lipitor PO 40 mg QHS DIANE Administration Calcitriol 0.5 mcg 06/29/18 13:00 07/18/18 09:06 Rocaltrol PO Not Given QDAY DIANE Docusate Sodium 100 mg 07/02/18 10:00 07/18/18 09:06 Colace PO Not Given BID DIANE Fludrocortisone Acetate 0.1 mg 07/15/18 14:00 07/18/18 09:07 Florinef PO 0.1 mg QDAY DIANE Administration Folic Acid 1 mg 07/10/18 14:00 07/18/18 09:06 Folvite PO Not Given QDAY DIANE Heparin Sodium (Porcine) 5,000 unit 07/16/18 18:52 Heparin IV THOMAS PRN hemodialysis Sodium Chloride 100 mls @ 999 mls/hr 07/16/18 18:52 Nacl 0.9% IV THOMAS PRN Hypotension Cefepime HCl 1 gm in 100 mls @ 200 mls/hr 07/16/18 22:00 07/17/18 21:39 Maxipime/Ns 1 Gm/100 Ml IV 200 mls/hr QHS DIANE Administration Protocol Vancomycin HCl 1 gm in 250 mls @ 167.007 mls/hr 07/17/18 18:00 07/17/18 17:05 Vancomycin/Ns 1 Gm/250 Ml IV 167.007 mls/hr [email or web address] DIANE Administration Insulin Human Lispro 0 unit 06/29/18 22:00 07/18/18 11:15 Humalog SUB-Q Not Given ACHS [facility] Protocol Lactulose 20 gm 07/13/18 12:00 Cephulac PO TID PRN Constipation Midodrine 10 mg 07/01/18 14:00 07/18/18 07:26 Proamatine PO 10 mg TID DIANE Administration Morphine Sulfate 2 mg 07/08/18 14:51 07/17/18 22:48 Morphine IV 2 mg Q4H PRN Administration Pain, Moderate (4-6) Pantoprazole Sodium 40 mg 07/08/18 10:00 07/18/18 09:06 Protonix PO Not Given QDAY DIANE Polyethylene Glycol 17 gm 07/02/18 10:00 07/18/18 09:06 Miralax 3350 PO Not Given QDAY [facility] Sevelamer Carbonate 1,600 mg 06/29/18 12:00 07/18/18 11:15 Renvela PO Not Given TIDWM [facility]
--- NOTE | 2018-07-18 12:50 | Progress Note ---
Assessment and Plan Assessment and plan: Patient is a 67-year-old female past medical history of end-stage renal disease on peritoneal dialysis, hypertension hyperlipidemia, diabetes mellitus type 2 on diet control, presented to ER by EMS after having a fall around 9 AM in the morning but she had no loss of consciousness or hit her head. She was sitting on bed and accidentally "slid to ground". She was unable to get up from the bed as she was feeling very weak in her legs. Her family called emergency services to break into her house around 5pm. She was then brought to the ER for further evaluation and management . She noted to have highly elevated d-dimer, elevated white count. In the ED, patient was hypotensive w/ WBC 24.8. CTA chest was unremarkable. V/Q scan was also low prob PE. She denied fever, chills, PD fluid has been clear. She was placed on Levophed, given IV Rocephin and admitted. she was diagnosed with SIRS, hypotension. She improved on Levophed was weaned off. She had swelling of the legs on both ultrasound confirmed a DVT of left lower extremity for which she has been . However patient has failure to thrive, debility, she feels very weak and unable to stand. I discussed with case management she started working on acute rehabilitation placement. The patient developed fever and leukocytosis on 07/08/18. Fever resolved but leukocytosis worsened. Antibiotics restarted and blood cultures thus far negative. ID consulted. Sepsis not present on admission - PD associated peritonitis. - PD fluid cell count noted to be elevated at 6350 . Blood cultures were no growth to date. PD culture with no growth 48 hrs. Patient is currently on cefepime - Abdominal US reveals moderate-sized umbilical hernia present containing adipose tissue. No herniated loops of bowel are seen. - Continue to monitor leukocytosis, improved. PD catheter malfunction - surgery consulted for removal and stated will schedule for removal - currently patient is on HD Chronic Hypotension - stable HLD, on statin ESRD on PD, now changed to HD, patient has permcath Nephrology following Diabetes type 2, diet controlled, cont SSRI Elevated troponin/NSTEMI type 2 - Cardiology following - Stress test negative DVT left lower ext. Cont. Eliquis. Disposition; patient was accepted by [facility], pending PD catheter removal. History Interval history: Patient was seen and evaluated this morning, She wants her PD catheter to be taken out Hospitalist Physical - Physical exam Narrative exam: Not in cardiopulmonary distress. The patient appeared well nourished and normally developed. Vital signs as documented. Head exam is unremarkable. No scleral icterus . Neck is without jugular venous distension, thyromegaly, or carotid bruits. Lungs are clear to auscultation. Cardiac exam reveals regular rate and Rhythm. First and second heart sounds normal. No murmurs, rubs or gallops. Abdominal exam reveals normal bowel sounds, no masses, no organomegaly and no aortic enlargement. Extremities are nonedematous and both femoral and pedal pulses are normal. [employer]: Alert and oriented 3. No focal weakness. - Constitutional Vitals: Temp Pulse Resp BP Pulse Ox 99.2 F 102 H 18 98/58 93 07/18/18 07:10 07/18/18 09:29 07/18/18 07:10 07/18/18 09:18 07/18/18 09:29 General appearance: Present: no acute distress, well-nourished Results - Labs CBC & Chem 7: 07/18/18 00:56 07/18/18 04:23 Labs: Laboratory Last Values WBC 13.9 K/mm3 (4.5-11.0) H 07/18/18 00:56 RBC 3.43 M/mm3 (3.65-5.03) L 07/18/18 00:56 Hgb 11.8 gm/dl (10.1-14.3) 07/18/18 00:56 Hct 36.4 % (30.3-42.9) 07/18/18 00:56 MCV 106 fl (79-97) H 07/18/18 00:56 MCH 35 pg (28-32) H 07/18/18 00:56 MCHC 33 % (30-34) 07/18/18 00:56 RDW 15.6 % (13.2-15.2) H 07/18/18 00:56 Plt Count 219 K/mm3 (140-440) 07/18/18 00:56 Lymph % (Auto) 6.4 % (13.4-35.0) L 07/15/18 06:42 [place] % (Auto) 3.4 % (0.0-7.3) 07/15/18 06:42 Eos % (Auto) 0.5 % (0.0-4.3) 07/15/18 06:42 Baso % (Auto) 0.1 % (0.0-1.8) 07/15/18 06:42 Lymph # 0.8 K/mm3 (1.2-5.4) L 07/15/18 06:42 [place] # 0.4 K/mm3 (0.0-0.8) 07/15/18 06:42 Eos # 0.1 K/mm3 (0.0-0.4) 07/15/18 06:42 Baso # 0.0 K/mm3 (0.0-0.1) 07/15/18 06:42 Add Manual Diff Complete 07/18/18 00:56 Total Counted 100 07/18/18 00:56 Seg Neutrophils % Regulatory Affairs Analyst 07/18/18 00:56 Seg Neuts % (Manual) 88.0 % (40.0-70.0) H 07/18/18 00:56 Band Neutrophils % 6.0 % 07/18/18 00:56 Lymphocytes % (Manual) 2.0 % (13.4-35.0) L 07/18/18 00:56 Reactive Lymphs % (Man) 0 % 07/18/18 00:56 Monocytes % (Manual) 4.0 % (0.0-7.3) 07/18/18 00:56 Eosinophils % (Manual) 0 % (0.0-4.3) 07/18/18 00:56 Basophils % (Manual) 0 % (0.0-1.8) 07/18/18 00:56 Metamyelocytes % 0 % 07/18/18 00:56 Myelocytes % 0 % 07/18/18 00:56 Promyelocytes % 0 % 07/18/18 00:56 Blast Cells % 0 % 07/18/18 00:56 Nucleated RBC % Not Reportable 07/18/18 00:56 Seg Neutrophils # 10.6 K/mm3 (1.8-7.7) H 07/15/18 06:42 Seg Neutrophils # Man 12.2 K/mm3 (1.8-7.7) H 07/18/18 00:56 Band Neutrophils # 0.8 K/mm3 07/18/18 00:56 Lymphocytes # (Manual) 0.3 K/mm3 (1.2-5.4) L 07/18/18 00:56 Abs React Lymphs (Man) 0.0 K/mm3 07/18/18 00:56 Monocytes # (Manual) 0.6 K/mm3 (0.0-0.8) 07/18/18 00:56 Eosinophils # (Manual) 0.0 K/mm3 (0.0-0.4) 07/18/18 00:56 Basophils # (Manual) 0.0 K/mm3 (0.0-0.1) 07/18/18 00:56 Metamyelocytes # 0.0 K/mm3 07/18/18 00:56 Myelocytes # 0.0 K/mm3 07/18/18 00:56 Promyelocytes # 0.0 K/mm3 07/18/18 00:56 Blast Cells # 0.0 K/mm3 07/18/18 00:56 WBC Morphology Not Reportable 07/18/18 00:56 Hypersegmented Neuts Not Reportable 07/18/18 00:56 Hyposegmented Neuts Not Reportable 07/18/18 00:56 Hypogranular Neuts Not Reportable 07/18/18 00:56 Smudge Cells Not Reportable 07/18/18 00:56 Toxic Granulation Not Reportable 07/18/18 00:56 Toxic Vacuolation Not Reportable 07/18/18 00:56 Dohle Bodies Not Reportable 07/18/18 00:56 Pelger-Huet Anomaly Not Reportable 07/18/18 00:56 Nomi Rods Not Reportable 07/18/18 00:56 Platelet Estimate Appears normal 07/18/18 00:56 Clumped Platelets Not Reportable 07/18/18 00:56 Plt Clumps, EDTA Not Reportable 07/18/18 00:56 Large Platelets Few 07/18/18 00:56 Giant Platelets Rare 07/18/18 00:56 Platelet Satelliting Not Reportable 07/18/18 00:56 Plt Morphology Comment Not Reportable 07/18/18 00:56 RBC Morphology Not Reportable 07/18/18 00:56 Dimorphic RBCs Not Reportable 07/18/18 00:56 Polychromasia Not Reportable 07/18/18 00:56 Hypochromasia Not Reportable 07/18/18 00:56 Poikilocytosis Not Reportable 07/18/18 00:56 Anisocytosis Few 07/18/18 00:56 Microcytosis Not Reportable 07/18/18 00:56 Macrocytosis Not Reportable 07/18/18 00:56 Spherocytes Not Reportable 07/18/18 00:56 Pappenheimer Bodies Not Reportable 07/18/18 00:56 Sickle Cells Not Reportable 07/18/18 00:56 Target Cells Few 07/18/18 00:56 Tear Drop Cells Not Reportable 07/18/18 00:56 Ovalocytes Not Reportable 07/18/18 00:56 Helmet Cells Not Reportable 07/18/18 00:56 Barnhart-[place] Bodies Not Reportable 07/18/18 00:56 Bangs Rings Not Reportable 07/18/18 00:56 Edgar Cells Not Reportable 07/18/18 00:56 Bite Cells Not Reportable 07/18/18 00:56 Crenated Cell Not Reportable 07/18/18 00:56 Elliptocytes Not Reportable 07/18/18 00:56 Acanthocytes (Spur) Not Reportable 07/18/18 00:56 Rouleaux Not Reportable 07/18/18 00:56 Hemoglobin C Crystals Not Reportable 07/18/18 00:56 Schistocytes Not Reportable 07/18/18 00:56 Malaria parasites Not Reportable 07/18/18 00:56 Navneet Bodies Not Reportable 07/18/18 00:56 Hem Pathologist Commnt No 07/18/18 00:56 PT 13.6 Sec. (12.2-14.9) 07/03/18 12:39 INR 0.98 (0.87-1.13) 07/03/18 12:39 APTT 34.1 Sec. (24.2-36.6) 07/03/18 12:39 D-Dimer > 32544 ng/mlDDU (0-234) H 06/28/18 22:26 Heparin Anti-Xa Level 1.70 U.I./ml (0.3-0.7) H 07/04/18 14:59 Sodium 137 mmol/L (137-145) 07/18/18 04:23 Potassium 4.2 mmol/L (3.6-5.0) 07/18/18 04:23 Chloride 99.4 mmol/L (98-107) 07/18/18 04:23 Carbon Dioxide 23 mmol/L (22-30) 07/18/18 04:23 Anion Gap 19 mmol/L 07/18/18 04:23 BUN 22 mg/dL (7-17) H 07/18/18 04:23 Creatinine 4.9 mg/dL (0.7-1.2) H 07/18/18 04:23 Estimated GFR 11 ml/min 07/18/18 04:23 BUN/Creatinine Ratio 4 % 07/18/18 04:23 Glucose 60 mg/dL (65-100) L 07/18/18 04:23 POC Glucose 91 (70-105) 07/18/18 11:11 Lactic Acid 2.20 mmol/L (0.7-2.0) H* 07/02/18 05:22 Calcium 7.5 mg/dL (8.4-10.2) L 07/18/18 04:23 Total Bilirubin 0.40 mg/dL (0.1-1.2) 06/28/18 20:54 AST 25 units/L (5-40) 06/28/18 20:54 ALT 5 units/L (7-56) L 06/28/18 20:54 Alkaline Phosphatase 88 units/L (35-129) 06/28/18 20:54 Total Creatine Kinase 118 units/L (30-135) 06/29/18 20:37 Troponin T 0.077 ng/mL (0.00-0.029) H 06/29/18 20:37 C-Reactive Protein 7.40 mg/dL (0.00-1.30) H 07/01/18 13:32 Total Protein 7.4 g/dL (6.3-8.2) 06/28/18 20:54 Albumin 3.2 g/dL (3.9-5) L 06/28/18 20:54 Albumin/Globulin Ratio 0.8 % 06/28/18 20:54 Triglycerides 194 mg/dL (2-149) H 06/28/18 10:38 Cholesterol 167 mg/dL (50-199) 06/28/18 10:38 LDL Cholesterol Direct 61 mg/dL (50-130) 06/28/18 10:38 HDL Cholesterol 68 mg/dL (40-59) H 06/28/18 10:38 Cholesterol/HDL Ratio 2.45 % 06/28/18 10:38 Vitamin B12 1416 pg/mL (211-911) H 07/08/18 05:19 Folate 2.39 ng/mL (7.3-26.0) L 07/08/18 05:19 Fluid Type Peritoneal 07/14/18 14:48 Fluid Color Straw 07/14/18 14:48 Fluid Appearance Cloudy 07/14/18 14:48 Fluid WBC 2700 /mm3 07/14/18 14:48 Fluid RBC 39 /mm3 07/14/18 14:48 Fluid Seg Neutrophils 96.0 % 07/14/18 14:48 Fluid Lymphocytes 3.0 % 07/14/18 14:48 Fluid Reactive Lymphs 0 % 07/14/18 14:48 Fluid Monocytes 1.0 % 07/14/18 14:48 Fluid Eosinophils 0 % 07/14/18 14:48 Fluid Basophils 0 % 07/14/18 14:48 Random Vancomycin 19 ug/mL (0-40.0) 07/16/18 05:12 Active Medications - Current Medications Current Medications: Generic Name Dose Route Start Last Admin Trade Name Freq PRN Reason Stop Dose Admin Acetaminophen 650 mg 07/15/18 12:55 07/15/18 13:53 Tylenol PO 650 mg Q4H PRN Administration Pain, Mild (1-3) Aspirin 81 mg 06/29/18 13:00 07/18/18 09:05 Baby Aspirin PO Not Given QDAY [facility] Atorvastatin Calcium 40 mg 06/29/18 22:00 07/17/18 21:50 Lipitor PO 40 mg QHS [facility] Administration Calcitriol 0.5 mcg 06/29/18 13:00 07/18/18 09:06 Rocaltrol PO Not Given QDAY [facility] Docusate Sodium 100 mg 07/02/18 10:00 07/18/18 09:06 Colace PO Not Given BID [facility] Fludrocortisone Acetate 0.1 mg 07/15/18 14:00 07/18/18 09:07 Florinef PO 0.1 mg QDAY [facility] Administration Folic Acid 1 mg 07/10/18 14:00 07/18/18 09:06 Folvite PO Not Given QDAY [facility] Heparin Sodium (Porcine) 5,000 unit 07/16/18 18:52 Heparin IV THOMAS PRN hemodialysis Sodium Chloride 100 mls @ 999 mls/hr 07/16/18 18:52 Nacl 0.9% IV THOMAS PRN Hypotension Cefepime HCl 1 gm in 100 mls @ 200 mls/hr 07/16/18 22:00 07/17/18 21:39 Maxipime/Ns 1 Gm/100 Ml IV 200 mls/hr QHS DIANE Administration Protocol Vancomycin HCl 1 gm in 250 mls @ 167.007 mls/hr 07/17/18 18:00 07/17/18 17:05 Vancomycin/Ns 1 Gm/250 Ml IV 167.007 mls/hr [id number] DIANE Administration Insulin Human Lispro 0 unit 06/29/18 22:00 07/18/18 11:15 Humalog SUB-Q Not Given ACHS [facility] Protocol Lactulose 20 gm 07/13/18 12:00 Cephulac PO TID PRN Constipation Midodrine 10 mg 07/01/18 14:00 07/18/18 07:26 Proamatine PO 10 mg TID DIANE Administration Morphine Sulfate 2 mg 07/08/18 14:51 07/17/18 22:48 Morphine IV 2 mg Q4H PRN Administration Pain, Moderate (4-6) Pantoprazole Sodium 40 mg 07/08/18 10:00 07/18/18 09:06 Protonix PO Not Given QDAY [facility] Polyethylene Glycol 17 gm 07/02/18 10:00 07/18/18 09:06 Miralax 3350 PO Not Given QDAY [facility] Sevelamer Carbonate 1,600 mg 06/29/18 12:00 07/18/18 11:15 Renvela PO Not Given TIDWM [facility] Nutrition/Malnutrition Assess - Dietary Evaluation Nutrition/Malnutrition Findings: Nutrition Notes Start: 07/05/18 14:49 Freq: Status: Active Protocol: Document 07/16/18 12:28 EB (Rec: 07/16/18 12:35 EB [id number]) Co-Sign 07/16/18 12:28 LP Nutrition Notes Initial or Follow up Reassessment Current Diagnosis Diabetes Other Pertinent Diagnosis ESRD on PD, Possible sepsis Current Diet Renal,Cardiac with Nepro daily Labs/Tests Reviewed Pertinent Medications Reviewed Height 5 ft 6 in Weight 102.5 kg [place] Body Weight (kg) 59.09 BMI 36.4 Subjective/Other Information F/u for intakes. Pt NPO since last night due to scheduled procedure today. Pt states she only drank juice for dinner last night because she was not hungry. Pt reports consumption of 50% meals in past several days, adding that she has has decreased appetite for the past several days. Pt states that she does drink ONS daily. Percent of energy/protein needs met: 61%/42% (prior to NPO) Burn Absent Trauma Absent Current % PO Fair (50-74%) #1 Nutrition Diagnosis Inadequate oral intake Etiology NPO status As Evidenced by Signs and Symptoms pt meeting 61%/42% edis and pro needs via PO intake prior to NPO status Diagnosis Progress(for reassessment Worsened documentation) Is patient on ventilator? No Is Patient Ambulatory and/or Out of Bed Yes REE-([place]-St. Jeor-ambulatory/OOB) [ NUTR.[id number]] Kcal/Kg value to use for calculation 17 Approximate Energy Requirements Using 1743 kcal/Kg Calculation Used for Recommendations Kcal/kg Additional Notes Protein Needs: 92-100g (1.2-1. 3g/kg, 77kg adjBW) Fluid Needs: 1 ml/kcal Nutrition Intervention Change Diet Order: Continue current Add Supplement/Snack (indicate name/kcal Nepro 1 daily /protein ) Provides kCal: 425 Provides Protein (gm) 19 Goal #1 Meet at least 75% edis and pro needs via PO and ONS intake Anticipated Discharge Needs: Renal diet Follow-Up By: 07/19/18 Additional Comments F/u: PO and ONS intakes
[2018-07-18] MEDS ORDERED: MARCAINE-EPI 0.25%-1:200,000 INFILTRATI ONE ×5 (13:50→15:27)
[2018-07-18] MEDS ORDERED: XYLOCAINE 1% 20 mL ONE (13:51)
[2018-07-18] MEDS ORDERED: NACL 0.9% 1000 ML 1,000 ML IV SCH (14:00)
[2018-07-18] MEDS ORDERED: VERSED ONE (15:13)
--- NOTE | 2018-07-18 15:16 | Anesthesia Day of Surgery ---
Anesthesia Day of Surgery - Day of Surgery Patient Examined: Yes Patient H&P Reviewed: Yes Patient is NPO: Yes
--- NOTE | 2018-07-18 15:16 | Anesthesia Consultation ---
Anesthesia Consult and Med Hx Date of service: 07/18/18 - Airway Anesthetic Teeth Evaluation: Poor ROM Head & Neck: Inadequate Mental/Hyoid Distance: Adequate Mallampati Class: Class III Intubation Access Assessment: Possibly Difficult - Pulmonary Exam CTA: Yes - Cardiac Exam Cardiac Exam: RRR - Pre-Operative Health Status ASA Pre-Surgery Classification: ASA4 Proposed Anesthetic Plan: MAC - Pulmonary Hx Smoking: No Hx Respiratory Symptoms: No Hx Sleep Apnea: No - Cardiovascular System Hx Hypertension: Yes Hx Percutaneous Transluminal Coronary Angioplasty (PTCA): No Hx Cardia Arrhythmia: No - Central Nervous System Hx Seizures: No CVA: No Hx Psychiatric Problems: No - Gastrointestinal Hx Gastroesophageal Reflux Disease: No - Endocrine Hx End Stage Renal Disease: Yes Hx Non-Insulin Dependent Diabetes: Yes Hx Thyroid Disease: No - Hematic Hx Anemia: Yes - Other Systems Hx Alcohol Use: No Hx Substance Use: No Hx Cancer: No Hx Obesity: Yes - Additional Comments Anesthesia Medical History Comments: PMH ESRD previously on PD, HTN, NIDDM presenting with LLE swelling found to have DVT (last dose eliquis 4/10 AM) and later developing peritonitis 2/2 PD cath. Now scheduled for PD cath removal. Patient on midodrine this admission for hypotension. Received morning dose, t kirby pressures still borderline. No hx anesthetic complications.
[2018-07-18] MEDS ORDERED: SUBLIMAZE IV PRN (15:17)
[2018-07-18] MEDS ORDERED: XYLOCAINE 1% 20 mL INFILTRATI ONE ×2 (15:27)
[2018-07-18] MEDS ORDERED: AMIDATE IV ONE (15:29)
[2018-07-18] MEDS ORDERED: ZOFRAN ONE (15:29)
[2018-07-18] MEDS ORDERED: XYLOCAINE MPF 2% ONE (15:29)
[2018-07-18] MEDS ORDERED: NACL 0.9% IR ONE ×2 (15:39)
--- NOTE | 2018-07-18 15:46 | Operative Report ---
Operative Report Operative Report: Date of procedure: 07/18/2018 Pre-operative diagnosis: Malfunctioning/infected peritoneal dialysis catheter Post-operative diagnosis: Same Procedure name(s): Removal of peritoneal dialysis catheter Surgeon: Shlomo Lucero MD Race Relations Professor: None Anesthesia: Mac, 0.25% Marcaine/1% lidocaine mixed EBL: Minimal Complications: None Instrument Count: Correct Indications: This is a 68-year-old patient with a history of malfunctioning/infected peritoneal dialysis catheter. The appliance required removal to allow healing. The patient was offered the above-named procedures possible treatment modality area the risks and benefits of discussed until all questions were answered. There was subsequently brought to the OR. Findings: None significant Procedure: We reviewed the informed consent. The patient was then placed supine upon the table. After adequate anesthesia was reached, the patient was then prepped and draped in the usual sterile fashion. We infiltrated local anesthetic at the site of the cuff insertion through the abdominal wall. Using a 15 blade, we made a 3 cm incision. Using electrocautery we dissected down to the peritoneal dialysis catheter. At this time the catheter was grasped using hemostats. We then dissected free the distal cuff from the surrounding soft tissue using electrocautery. The proximal cuff was then dissected free from the anterior rectus sheath and surrounding muscle. The catheter was then cut distal to the most distal cuff and the dialysis catheter was completely removed and handed off the table. The subcutaneous external portion was also removed. The defect within the anterior rectus sheath was then closed using a 0 Vicryl on a UR 6 needle. We irrigated the wound, and then closed the subcutaneous tissues using a 3-0 Vicryl. A 4-0 Monocryl was used to close the skin. The wounds bandaged sterilely, the patient tolerated the procedure well, and was transferred to recovery room in no apparent distress.
[2018-07-18] MEDS ORDERED: SUBLIMAZE ONE (15:51)
[2018-07-18] MEDS ORDERED: D50W (25GM) Syringe IV ONE (16:07)
--- NOTE | 2018-07-18 17:05 | Progress Note ---
Assessment and Plan Severe sepsis with septic shock HLD ESRD on PD Diabetes Elevated troponin/NSTEMI type 2 LLExt DVT Abdominal pain -Bowel regimen, serial abdominal exams - Nephrology for peritoneal dialysis - No infiltrates noted on CTA chest/chest x-ray/VQ scan -Increase activity -On midodrine for blood pressure support -De-escalate antibiotics based on cultures -Continue anticoagulation with Eliquis, monitor for bleeding complications -Influenza and pneumonia vaccination per protocol prior to discharge -Continue all supportive care Continue to monitor closely Subjective Date of service: 07/18/18 Principal diagnosis: dvt leg Interval history: Patient is seen today for: Septic Shock (etiology unclear) with lactic acidosis and hypotension; Hyperlipidemia; ESRD on PD; Diabetes type 2; Elevated troponin/NSTEMI type 2 Seen and examined at bedside; 24hour events reviewed; nursing and respiratory care staff consulted; no adverse overnight events reported to me; resting peacefully in bed; looks and feels better; denies acute chest pains or palpitations; No N/V/F/C; has some lower abdominal pain, episode of fecal incontinence this morning( received a dose of lactulose- possible overflow diarrhea), states she does not have an appetite this morning. Objective Vital Signs - 12hr 07/18/18 07/18/18 07/18/18 07:00 07:10 09:18 Temperature 99.2 F Pulse Rate 102 H Pulse Rate [ From Monitor] Respiratory 18 Rate Blood Pressure 85/44 Blood Pressure 88/41 98/58 [Left] O2 Sat by Pulse 93 Oximetry 07/18/18 07/18/18 07/18/18 09:29 13:07 13:20 Temperature 98.2 F 99.5 F Pulse Rate 99 H 100 H Pulse Rate [ 102 H From Monitor] Respiratory 18 20 Rate Blood Pressure 100/51 98/57 Blood Pressure [Left] O2 Sat by Pulse 93 100 96 Oximetry Constitutional: no acute distress, alert Eyes: non-icteric ENT: oropharynx moist, other (mallampati 3) Neck: supple, no lymphadenopathy, no JVD, other (large neck circumference) Effort: normal Ascultation: Bilateral: diminished breath sounds, rhonchi (scant in bases) Percussion: Bilateral: not dull Cardiovascular: regular rate and rhythm, other (No R/M) Gastrointestinal: normoactive bowel sounds, soft, non-distended, other (No HSM, PD cathetr, clean dry site, mild lower abdominal tenderness, no rebound) Integumentary: normal Extremities: no cyanosis, no edema, pulses normal, no ischemia or petechiae Neurologic: normal mental status, non-focal exam (grossly), pupils equal and round, motor strength normal and Psychiatric: mood appropriate, affect normal CBC and BMP: 07/18/18 00:56 07/18/18 04:23 ABG, PT/INR, D-dimer: PT/INR, D-dimer PT 13.6 Sec. (12.2-14.9) 07/03/18 12:39 INR 0.98 (0.87-1.13) 07/03/18 12:39 D-Dimer > 00210 ng/mlDDU (0-234) H 06/28/18 22:26 Abnormal lab findings: Abnormal Labs 06/28/18 06/28/18 06/28/18 10:38 20:54 20:54 WBC 24.8 H RBC Hgb 16.6 H Hct 50.3 H MCV 107 H MCH 35 H RDW 15.6 H Plt Count Lymph % (Auto) Lymph # Baso # Seg Neutrophils % Seg Neuts % (Manual) 95.0 H Lymphocytes % (Manual) 3.0 L Nucleated RBC % Seg Neutrophils # Seg Neutrophils # Man 23.6 H Lymphocytes # (Manual) 0.7 L Monocytes # (Manual) D-Dimer Heparin Anti-Xa Level Sodium 131 L Potassium Chloride 89.6 L Carbon Dioxide 19 L BUN 29 H Creatinine 9.3 H Glucose 174 H POC Glucose Lactic Acid Calcium ALT 5 L Troponin T 0.073 H C-Reactive Protein Albumin 3.2 L Triglycerides 194 H HDL Cholesterol 68 H Vitamin B12 Folate 06/28/18 06/29/18 06/29/18 22:26 12:18 13:30 WBC RBC Hgb Hct MCV MCH RDW Plt Count Lymph % (Auto) Lymph # Baso # Seg Neutrophils % Seg Neuts % (Manual) Lymphocytes % (Manual) Nucleated RBC % Seg Neutrophils # Seg Neutrophils # Man Lymphocytes # (Manual) Monocytes # (Manual) D-Dimer > 97164 H Heparin Anti-Xa Level Sodium Potassium Chloride Carbon Dioxide BUN Creatinine Glucose POC Glucose 168 H Lactic Acid Calcium ALT Troponin T 0.073 H C-Reactive Protein Albumin Triglycerides HDL Cholesterol Vitamin B12 Folate 0306/29/18 06/29/18 13:30 14:11 16:36 WBC 19.8 H RBC Hgb 14.7 H Hct 45.4 H MCV 108 H MCH 35 H RDW 15.9 H Plt Count Lymph % (Auto) Lymph # Baso # Seg Neutrophils % Seg Neuts % (Manual) Lymphocytes % (Manual) Nucleated RBC % Seg Neutrophils # Seg Neutrophils # Man Lymphocytes # (Manual) Monocytes # (Manual) D-Dimer Heparin Anti-Xa Level Sodium 133 L Potassium Chloride 91.7 L Carbon Dioxide 20 L BUN 33 H Creatinine 9.9 H Glucose 196 H POC Glucose 165 H Lactic Acid Calcium ALT Troponin T C-Reactive Protein Albumin Triglycerides HDL Cholesterol Vitamin B12 Folate 06/29/18 06/29/18 06/30/18 20:37 22:01 04:49 WBC 14.8 H RBC Hgb Hct MCV 106 H MCH 35 H RDW 15.5 H Plt Count Lymph % (Auto) Lymph # Baso # Seg Neutrophils % Seg Neuts % (Manual) 90.0 H Lymphocytes % (Manual) 5.0 L Nucleated RBC % Seg Neutrophils # Seg Neutrophils # Man 13.3 H Lymphocytes # (Manual) 0.7 L Monocytes # (Manual) D-Dimer Heparin Anti-Xa Level Sodium Potassium Chloride Carbon Dioxide BUN Creatinine Glucose POC Glucose 202 H Lactic Acid Calcium ALT Troponin T 0.077 H C-Reactive Protein Albumin Triglycerides HDL Cholesterol Vitamin B12 Folate 06/30/18 06/30/18 06/30/18 04:49 08:27 12:17 WBC RBC Hgb Hct MCV MCH RDW Plt Count Lymph % (Auto) Lymph # Baso # Seg Neutrophils % Seg Neuts % (Manual) Lymphocytes % (Manual) Nucleated RBC % Seg Neutrophils # Seg Neutrophils # Man Lymphocytes # (Manual) Monocytes # (Manual) D-Dimer Heparin Anti-Xa Level Sodium 134 L Potassium 3.5 L Chloride 94.7 L Carbon Dioxide BUN 30 H Creatinine 8.8 H Glucose 182 H POC Glucose 170 H 145 H Lactic Acid Calcium 7.9 L ALT Troponin T C-Reactive Protein Albumin Triglycerides HDL Cholesterol Vitamin B12 Folate 06/30/18 06/30/18 07/01/18 16:44 22:06 07:21 WBC 11.8 H RBC 3.32 L Hgb Hct MCV 105 H MCH 35 H RDW 15.5 H Plt Count 125 L Lymph % (Auto) Lymph # Baso # Seg Neutrophils % Seg Neuts % (Manual) Lymphocytes % (Manual) Nucleated RBC % Seg Neutrophils # Seg Neutrophils # Man Lymphocytes # (Manual) Monocytes # (Manual) D-Dimer Heparin Anti-Xa Level Sodium Potassium Chloride Carbon Dioxide BUN Creatinine Glucose POC Glucose 155 H 174 H Lactic Acid Calcium ALT Troponin T C-Reactive Protein Albumin Triglycerides HDL Cholesterol Vitamin B12 Folate 07/01/18 07/01/18 07/01/18 07:21 08:22 11:38 WBC RBC Hgb Hct MCV MCH RDW Plt Count Lymph % (Auto) Lymph # Baso # Seg Neutrophils % Seg Neuts % (Manual) Lymphocytes % (Manual) Nucleated RBC % Seg Neutrophils # Seg Neutrophils # Man Lymphocytes # (Manual) Monocytes # (Manual) D-Dimer Heparin Anti-Xa Level Sodium 134 L Potassium Chloride 95.9 L Carbon Dioxide BUN 31 H Creatinine 8.4 H Glucose 151 H POC Glucose 117 H 166 H Lactic Acid Calcium 7.8 L ALT Troponin T C-Reactive Protein Albumin Triglycerides HDL Cholesterol Vitamin B12 Folate 07/01/18 07/01/18 07/01/18 13:32 13:32 16:27 WBC RBC Hgb Hct MCV MCH RDW Plt Count Lymph % (Auto) Lymph # Baso # Seg Neutrophils % Seg Neuts % (Manual) Lymphocytes % (Manual) Nucleated RBC % Seg Neutrophils # Seg Neutrophils # Man Lymphocytes # (Manual) Monocytes # (Manual) D-Dimer Heparin Anti-Xa Level Sodium Potassium Chloride Carbon Dioxide BUN Creatinine Glucose POC Glucose 149 H Lactic Acid 2.20 H* Calcium ALT Troponin T C-Reactive Protein 7.40 H Albumin Triglycerides HDL Cholesterol Vitamin B12 Folate 07/01/18 07/01/18 07/02/18 19:35 21:36 05:22 WBC RBC Hgb Hct MCV MCH RDW Plt Count Lymph % (Auto) Lymph # Baso # Seg Neutrophils % Seg Neuts % (Manual) Lymphocytes % (Manual) Nucleated RBC % Seg Neutrophils # Seg Neutrophils # Man Lymphocytes # (Manual) Monocytes # (Manual) D-Dimer Heparin Anti-Xa Level Sodium Potassium Chloride Carbon Dioxide BUN Creatinine Glucose POC Glucose 129 H Lactic Acid 2.60 H* 2.20 H* Calcium ALT Troponin T C-Reactive Protein Albumin Triglycerides HDL Cholesterol Vitamin B12 Folate 07/02/18 07/02/18 07/02/18 05:22 05:22 07:11 WBC 12.6 H RBC 3.51 L Hgb Hct MCV 105 H MCH 35 H RDW Plt Count 132 L Lymph % (Auto) Lymph # Baso # Seg Neutrophils % Seg Neuts % (Manual) 92.0 H Lymphocytes % (Manual) 2.0 L Nucleated RBC % Seg Neutrophils # Seg Neutrophils # Man 11.6 H Lymphocytes # (Manual) 0.3 L Monocytes # (Manual) D-Dimer Heparin Anti-Xa Level Sodium 131 L Potassium 3.3 L Chloride 93.1 L Carbon Dioxide BUN 31 H Creatinine 7.5 H Glucose 228 H POC Glucose 215 H Lactic Acid Calcium 7.7 L ALT Troponin T C-Reactive Protein Albumin Triglycerides HDL Cholesterol Vitamin B12 Folate 07/02/18 07/02/18 07/03/18 15:35 21:56 10:56 WBC RBC Hgb Hct MCV MCH RDW Plt Count Lymph % (Auto) Lymph # Baso # Seg Neutrophils % Seg Neuts % (Manual) Lymphocytes % (Manual) Nucleated RBC % Seg Neutrophils # Seg Neutrophils # Man Lymphocytes # (Manual) Monocytes # (Manual) D-Dimer Heparin Anti-Xa Level Sodium 130 L Potassium Chloride 91.6 L Carbon Dioxide BUN 33 H Creatinine 7.8 H Glucose POC Glucose 123 H 135 H Lactic Acid Calcium 7.7 L ALT Troponin T C-Reactive Protein Albumin Triglycerides HDL Cholesterol Vitamin B12 Folate 07/03/18 07/03/18 07/03/18 11:00 21:03 22:06 WBC 11.9 H RBC 3.59 L Hgb Hct MCV 103 H MCH 35 H RDW Plt Count Lymph % (Auto) Lymph # Baso # Seg Neutrophils % Seg Neuts % (Manual) 94.0 H Lymphocytes % (Manual) 5.0 L Nucleated RBC % Seg Neutrophils # Seg Neutrophils # Man 11.2 H Lymphocytes # (Manual) 0.6 L Monocytes # (Manual) D-Dimer Heparin Anti-Xa Level 0.28 L Sodium Potassium Chloride Carbon Dioxide BUN Creatinine Glucose POC Glucose 177 H Lactic Acid Calcium ALT Troponin T C-Reactive Protein Albumin Triglycerides HDL Cholesterol Vitamin B12 Folate 07/04/18 07/04/18 07/04/18 01:08 05:22 05:22 WBC 13.1 H RBC Hgb Hct MCV 104 H MCH 35 H RDW Plt Count 139 L Lymph % (Auto) 5.0 L Lymph # 0.7 L Baso # 0.2 H Seg Neutrophils % 87.7 H Seg Neuts % (Manual) Lymphocytes % (Manual) Nucleated RBC % Seg Neutrophils # 11.5 H Seg Neutrophils # Man Lymphocytes # (Manual) Monocytes # (Manual) D-Dimer Heparin Anti-Xa Level Sodium 132 L Potassium 3.1 L Chloride 92.4 L Carbon Dioxide BUN 30 H Creatinine 7.4 H Glucose 113 H POC Glucose 106 H Lactic Acid Calcium 7.8 L ALT Troponin T C-Reactive Protein Albumin Triglycerides HDL Cholesterol Vitamin B12 Folate 07/04/18 07/04/18 07/04/18 05:22 12:15 14:59 WBC RBC Hgb Hct MCV MCH RDW Plt Count Lymph % (Auto) Lymph # Baso # Seg Neutrophils % Seg Neuts % (Manual) Lymphocytes % (Manual) Nucleated RBC % Seg Neutrophils # Seg Neutrophils # Man Lymphocytes # (Manual) Monocytes # (Manual) D-Dimer Heparin Anti-Xa Level 1.31 H 1.70 H Sodium Potassium Chloride Carbon Dioxide BUN Creatinine Glucose POC Glucose 200 H Lactic Acid Calcium ALT Troponin T C-Reactive Protein Albumin Triglycerides HDL Cholesterol Vitamin B12 Folate 07/04/18 07/05/18 07/05/18 20:56 06:17 06:17 WBC RBC 3.51 L Hgb Hct MCV 104 H MCH 35 H RDW Plt Count Lymph % (Auto) 7.8 L Lymph # 0.7 L Baso # Seg Neutrophils % 85.2 H Seg Neuts % (Manual) Lymphocytes % (Manual) Nucleated RBC % Seg Neutrophils # Seg Neutrophils # Man Lymphocytes # (Manual) Monocytes # (Manual) D-Dimer Heparin Anti-Xa Level Sodium 132 L Potassium 3.1 L Chloride 92.7 L Carbon Dioxide BUN 29 H Creatinine 7.3 H Glucose 115 H POC Glucose 133 H Lactic Acid Calcium 7.9 L ALT Troponin T C-Reactive Protein Albumin Triglycerides HDL Cholesterol Vitamin B12 Folate 07/05/18 07/06/18 07/06/18 23:47 06:53 06:53 WBC RBC 3.47 L Hgb Hct MCV 104 H MCH 35 H RDW Plt Count Lymph % (Auto) Lymph # Baso # Seg Neutrophils % Seg Neuts % (Manual) 93.0 H Lymphocytes % (Manual) 2.0 L Nucleated RBC % Seg Neutrophils # Seg Neutrophils # Man 8.6 H Lymphocytes # (Manual) 0.2 L Monocytes # (Manual) D-Dimer Heparin Anti-Xa Level Sodium 132 L Potassium 3.2 L Chloride 94.5 L Carbon Dioxide BUN 32 H Creatinine 8.7 H Glucose 106 H POC Glucose 112 H Lactic Acid Calcium 7.8 L ALT Troponin T C-Reactive Protein Albumin Triglycerides HDL Cholesterol Vitamin B12 Folate 07/06/18 07/06/18 07/07/18 16:23 22:56 07:56 WBC RBC Hgb Hct MCV MCH RDW Plt Count Lymph % (Auto) Lymph # Baso # Seg Neutrophils % Seg Neuts % (Manual) Lymphocytes % (Manual) Nucleated RBC % Seg Neutrophils # Seg Neutrophils # Man Lymphocytes # (Manual) Monocytes # (Manual) D-Dimer Heparin Anti-Xa Level Sodium Potassium Chloride Carbon Dioxide BUN Creatinine Glucose POC Glucose 126 H 139 H 181 H Lactic Acid Calcium ALT Troponin T C-Reactive Protein Albumin Triglycerides HDL Cholesterol Vitamin B12 Folate 07/07/18 07/07/18 07/07/18 09:35 09:35 12:52 WBC RBC Hgb Hct MCV 105 H MCH 35 H RDW Plt Count Lymph % (Auto) 6.3 L Lymph # 0.6 L Baso # Seg Neutrophils % 87.9 H Seg Neuts % (Manual) Lymphocytes % (Manual) Nucleated RBC % Seg Neutrophils # 8.2 H Seg Neutrophils # Man Lymphocytes # (Manual) Monocytes # (Manual) D-Dimer Heparin Anti-Xa Level Sodium 130 L Potassium 3.4 L Chloride 90.3 L Carbon Dioxide BUN 29 H Creatinine 8.0 H Glucose 201 H POC Glucose 161 H Lactic Acid Calcium 8.0 L ALT Troponin T C-Reactive Protein Albumin Triglycerides HDL Cholesterol Vitamin B12 Folate 07/07/18 07/08/18 07/08/18 21:56 05:19 05:19 WBC 12.7 H RBC Hgb Hct MCV 104 H MCH 35 H RDW Plt Count Lymph % (Auto) Lymph # Baso # Seg Neutrophils % Seg Neuts % (Manual) 92.0 H Lymphocytes % (Manual) 5.0 L Nucleated RBC % 1.0 H Seg Neutrophils # Seg Neutrophils # Man 11.7 H Lymphocytes # (Manual) 0.6 L Monocytes # (Manual) D-Dimer Heparin Anti-Xa Level Sodium 134 L Potassium 3.4 L Chloride 93.6 L Carbon Dioxide BUN 30 H Creatinine 8.0 H Glucose 184 H POC Glucose 162 H Lactic Acid Calcium ALT Troponin T C-Reactive Protein Albumin Triglycerides HDL Cholesterol Vitamin B12 Folate 07/08/18 07/08/18 07/08/18 05:19 05:19 08:25 WBC RBC Hgb Hct MCV MCH RDW Plt Count Lymph % (Auto) Lymph # Baso # Seg Neutrophils % Seg Neuts % (Manual) Lymphocytes % (Manual) Nucleated RBC % Seg Neutrophils # Seg Neutrophils # Man Lymphocytes # (Manual) Monocytes # (Manual) D-Dimer Heparin Anti-Xa Level Sodium Potassium Chloride Carbon Dioxide BUN Creatinine Glucose POC Glucose 200 H Lactic Acid Calcium ALT Troponin T C-Reactive Protein Albumin Triglycerides HDL Cholesterol Vitamin B12 1416 H Folate 2.39 L 07/08/18 07/08/18 07/08/18 11:48 16:14 21:53 WBC RBC Hgb Hct MCV MCH RDW Plt Count Lymph % (Auto) Lymph # Baso # Seg Neutrophils % Seg Neuts % (Manual) Lymphocytes % (Manual) Nucleated RBC % Seg Neutrophils # Seg Neutrophils # Man Lymphocytes # (Manual) Monocytes # (Manual) D-Dimer Heparin Anti-Xa Level Sodium Potassium Chloride Carbon Dioxide BUN Creatinine Glucose POC Glucose 202 H 176 H 219 H Lactic Acid Calcium ALT Troponin T C-Reactive Protein Albumin Triglycerides HDL Cholesterol Vitamin B12 Folate 07/09/18 07/09/18 07/09/18 07:50 09:51 09:51 WBC 15.8 H RBC Hgb Hct 43.4 H MCV 105 H MCH 34 H RDW Plt Count Lymph % (Auto) Lymph # Baso # Seg Neutrophils % Seg Neuts % (Manual) 94.0 H Lymphocytes % (Manual) 3.0 L Nucleated RBC % 1.0 H Seg Neutrophils # Seg Neutrophils # Man 14.9 H Lymphocytes # (Manual) 0.5 L Monocytes # (Manual) D-Dimer Heparin Anti-Xa Level Sodium 135 L Potassium Chloride 95.5 L Carbon Dioxide BUN 29 H Creatinine 8.4 H Glucose 204 H POC Glucose 163 H Lactic Acid Calcium ALT Troponin T C-Reactive Protein Albumin Triglycerides HDL Cholesterol Vitamin B12 Folate 07/09/18 07/09/18 07/09/18 11:50 18:47 22:16 WBC RBC Hgb Hct MCV MCH RDW Plt Count Lymph % (Auto) Lymph # Baso # Seg Neutrophils % Seg Neuts % (Manual) Lymphocytes % (Manual) Nucleated RBC % Seg Neutrophils # Seg Neutrophils # Man Lymphocytes # (Manual) Monocytes # (Manual) D-Dimer Heparin Anti-Xa Level Sodium Potassium Chloride Carbon Dioxide BUN Creatinine Glucose POC Glucose 156 H 176 H 189 H Lactic Acid Calcium ALT Troponin T C-Reactive Protein Albumin Triglycerides HDL Cholesterol Vitamin B12 Folate 07/10/18 07/10/18 07/10/18 05:35 08:22 08:52 WBC 17.9 H RBC Hgb Hct MCV 105 H MCH 34 H RDW Plt Count Lymph % (Auto) Lymph # Baso # Seg Neutrophils % Seg Neuts % (Manual) 87.0 H Lymphocytes % (Manual) 6.0 L Nucleated RBC % Seg Neutrophils # Seg Neutrophils # Man 15.6 H Lymphocytes # (Manual) 1.1 L Monocytes # (Manual) 1.1 H D-Dimer Heparin Anti-Xa Level Sodium 135 L Potassium Chloride 92.8 L Carbon Dioxide BUN 27 H Creatinine 7.5 H Glucose 175 H POC Glucose 129 H Lactic Acid Calcium ALT Troponin T C-Reactive Protein Albumin Triglycerides HDL Cholesterol Vitamin B12 Folate 07/10/18 07/10/18 07/10/18 11:47 18:22 21:32 WBC RBC Hgb Hct MCV MCH RDW Plt Count Lymph % (Auto) Lymph # Baso # Seg Neutrophils % Seg Neuts % (Manual) Lymphocytes % (Manual) Nucleated RBC % Seg Neutrophils # Seg Neutrophils # Man Lymphocytes # (Manual) Monocytes # (Manual) D-Dimer Heparin Anti-Xa Level Sodium Potassium Chloride Carbon Dioxide BUN Creatinine Glucose POC Glucose 189 H 211 H 306 H Lactic Acid Calcium ALT Troponin T C-Reactive Protein Albumin Triglycerides HDL Cholesterol Vitamin B12 Folate 07/11/18 07/11/18 07/11/18 04:10 07:36 11:49 WBC 19.4 H RBC Hgb Hct MCV 107 H MCH 35 H RDW 15.3 H Plt Count Lymph % (Auto) Lymph # Baso # Seg Neutrophils % Seg Neuts % (Manual) 89.0 H Lymphocytes % (Manual) 4.0 L Nucleated RBC % Seg Neutrophils # Seg Neutrophils # Man 17.3 H Lymphocytes # (Manual) 0.8 L Monocytes # (Manual) D-Dimer Heparin Anti-Xa Level Sodium Potassium Chloride Carbon Dioxide BUN Creatinine Glucose POC Glucose 113 H 123 H Lactic Acid Calcium ALT Troponin T C-Reactive Protein Albumin Triglycerides HDL Cholesterol Vitamin B12 Folate 07/11/18 07/11/18 07/12/18 17:35 23:28 00:48 WBC 17.0 H RBC Hgb Hct MCV 106 H MCH 35 H RDW Plt Count Lymph % (Auto) Lymph # Baso # Seg Neutrophils % Seg Neuts % (Manual) 92.0 H Lymphocytes % (Manual) 3.0 L Nucleated RBC % Seg Neutrophils # Seg Neutrophils # Man 15.6 H Lymphocytes # (Manual) 0.5 L Monocytes # (Manual) 0.9 H D-Dimer Heparin Anti-Xa Level Sodium Potassium Chloride Carbon Dioxide BUN Creatinine Glucose POC Glucose 207 H 188 H Lactic Acid Calcium ALT Troponin T C-Reactive Protein Albumin Triglycerides HDL Cholesterol Vitamin B12 Folate 07/12/18 07/12/18 07/12/18 04:05 09:21 12:05 WBC RBC Hgb Hct MCV MCH RDW Plt Count Lymph % (Auto) Lymph # Baso # Seg Neutrophils % Seg Neuts % (Manual) Lymphocytes % (Manual) Nucleated RBC % Seg Neutrophils # Seg Neutrophils # Man Lymphocytes # (Manual) Monocytes # (Manual) D-Dimer Heparin Anti-Xa Level Sodium Potassium Chloride Carbon Dioxide BUN Creatinine Glucose POC Glucose 147 H 125 H 113 H Lactic Acid Calcium ALT Troponin T C-Reactive Protein Albumin Triglycerides HDL Cholesterol Vitamin B12 Folate 07/12/18 07/13/18 07/13/18 22:25 05:28 05:28 WBC 15.5 H RBC 3.62 L Hgb Hct MCV 105 H MCH 34 H RDW Plt Count Lymph % (Auto) Lymph # Baso # Seg Neutrophils % Seg Neuts % (Manual) 99.0 H Lymphocytes % (Manual) 1.0 L Nucleated RBC % Seg Neutrophils # Seg Neutrophils # Man 15.3 H Lymphocytes # (Manual) 0.2 L Monocytes # (Manual) D-Dimer Heparin Anti-Xa Level Sodium 133 L Potassium Chloride 95.0 L Carbon Dioxide BUN 43 H Creatinine 9.1 H Glucose 124 H POC Glucose 162 H Lactic Acid Calcium 8.0 L ALT Troponin T C-Reactive Protein Albumin Triglycerides HDL Cholesterol Vitamin B12 Folate 07/13/18 07/13/18 07/13/18 07:59 11:40 16:41 WBC RBC Hgb Hct MCV MCH RDW Plt Count Lymph % (Auto) Lymph # Baso # Seg Neutrophils % Seg Neuts % (Manual) Lymphocytes % (Manual) Nucleated RBC % Seg Neutrophils # Seg Neutrophils # Man Lymphocytes # (Manual) Monocytes # (Manual) D-Dimer Heparin Anti-Xa Level Sodium Potassium Chloride Carbon Dioxide BUN Creatinine Glucose POC Glucose 191 H 195 H 204 H Lactic Acid Calcium ALT Troponin T C-Reactive Protein Albumin Triglycerides HDL Cholesterol Vitamin B12 Folate 07/13/18 07/14/18 07/14/18 22:38 04:15 04:15 WBC 13.1 H RBC Hgb Hct MCV 107 H MCH 34 H RDW Plt Count Lymph % (Auto) Lymph # Baso # Seg Neutrophils % Seg Neuts % (Manual) 89.0 H Lymphocytes % (Manual) 6.0 L Nucleated RBC % Seg Neutrophils # Seg Neutrophils # Man 11.7 H Lymphocytes # (Manual) 0.8 L Monocytes # (Manual) D-Dimer Heparin Anti-Xa Level Sodium 136 L Potassium Chloride 95.3 L Carbon Dioxide BUN 40 H Creatinine 8.1 H Glucose POC Glucose 190 H Lactic Acid Calcium ALT Troponin T C-Reactive Protein Albumin Triglycerides HDL Cholesterol Vitamin B12 Folate 07/14/18 07/14/18 07/14/18 07:57 12:18 17:24 WBC RBC Hgb Hct MCV MCH RDW Plt Count Lymph % (Auto) Lymph # Baso # Seg Neutrophils % Seg Neuts % (Manual) Lymphocytes % (Manual) Nucleated RBC % Seg Neutrophils # Seg Neutrophils # Man Lymphocytes # (Manual) Monocytes # (Manual) D-Dimer Heparin Anti-Xa Level Sodium Potassium Chloride Carbon Dioxide BUN Creatinine Glucose POC Glucose 205 H 180 H 249 H Lactic Acid Calcium ALT Troponin T C-Reactive Protein Albumin Triglycerides HDL Cholesterol Vitamin B12 Folate 07/14/18 07/15/18 07/15/18 22:19 06:42 06:42 WBC 11.9 H RBC Hgb Hct MCV 105 H MCH 34 H RDW Plt Count Lymph % (Auto) 6.4 L Lymph # 0.8 L Baso # Seg Neutrophils % 89.6 H Seg Neuts % (Manual) Lymphocytes % (Manual) Nucleated RBC % Seg Neutrophils # 10.6 H Seg Neutrophils # Man Lymphocytes # (Manual) Monocytes # (Manual) D-Dimer Heparin Anti-Xa Level Sodium 131 L Potassium 3.5 L Chloride 94.3 L Carbon Dioxide BUN 36 H Creatinine 7.0 H Glucose 166 H POC Glucose 156 H Lactic Acid Calcium 8.1 L ALT Troponin T C-Reactive Protein Albumin Triglycerides HDL Cholesterol Vitamin B12 Folate 07/15/18 07/15/18 07/15/18 08:12 11:46 15:44 WBC RBC Hgb Hct MCV MCH RDW Plt Count Lymph % (Auto) Lymph # Baso # Seg Neutrophils % Seg Neuts % (Manual) Lymphocytes % (Manual) Nucleated RBC % Seg Neutrophils # Seg Neutrophils # Man Lymphocytes # (Manual) Monocytes # (Manual) D-Dimer Heparin Anti-Xa Level Sodium Potassium Chloride Carbon Dioxide BUN Creatinine Glucose POC Glucose 187 H 201 H 169 H Lactic Acid Calcium ALT Troponin T C-Reactive Protein Albumin Triglycerides HDL Cholesterol Vitamin B12 Folate 07/15/18 07/16/18 07/16/18 23:09 00:22 01:52 WBC RBC Hgb Hct MCV MCH RDW Plt Count Lymph % (Auto) Lymph # Baso # Seg Neutrophils % Seg Neuts % (Manual) Lymphocytes % (Manual) Nucleated RBC % Seg Neutrophils # Seg Neutrophils # Man Lymphocytes # (Manual) Monocytes # (Manual) D-Dimer Heparin Anti-Xa Level Sodium Potassium Chloride Carbon Dioxide BUN Creatinine Glucose 234 H POC Glucose < 40 L 203 H Lactic Acid Calcium ALT Troponin T C-Reactive Protein Albumin Triglycerides HDL Cholesterol Vitamin B12 Folate 07/16/18 07/16/18 07/16/18 04:22 05:12 05:12 WBC 14.0 H RBC 3.58 L Hgb Hct MCV 106 H MCH 34 H RDW Plt Count Lymph % (Auto) Lymph # Baso # Seg Neutrophils % Seg Neuts % (Manual) 92.0 H Lymphocytes % (Manual) 4.0 L Nucleated RBC % Seg Neutrophils # Seg Neutrophils # Man 12.9 H Lymphocytes # (Manual) 0.6 L Monocytes # (Manual) D-Dimer Heparin Anti-Xa Level Sodium 130 L Potassium 2.9 L* Chloride 92.9 L Carbon Dioxide BUN 38 H Creatinine 6.8 H Glucose 194 H POC Glucose 194 H Lactic Acid Calcium ALT Troponin T C-Reactive Protein Albumin Triglycerides HDL Cholesterol Vitamin B12 Folate 07/16/18 07/16/18 07/16/18 08:45 12:22 16:42 WBC RBC Hgb Hct MCV MCH RDW Plt Count Lymph % (Auto) Lymph # Baso # Seg Neutrophils % Seg Neuts % (Manual) Lymphocytes % (Manual) Nucleated RBC % Seg Neutrophils # Seg Neutrophils # Man Lymphocytes # (Manual) Monocytes # (Manual) D-Dimer Heparin Anti-Xa Level Sodium Potassium Chloride Carbon Dioxide BUN Creatinine Glucose POC Glucose 155 H 208 H 143 H Lactic Acid Calcium ALT Troponin T C-Reactive Protein Albumin Triglycerides HDL Cholesterol Vitamin B12 Folate 07/16/18 07/17/18 07/18/18 22:02 04:32 00:56 WBC 13.9 H RBC 3.43 L Hgb Hct MCV 106 H MCH 35 H RDW 15.6 H Plt Count Lymph % (Auto) Lymph # Baso # Seg Neutrophils % Seg Neuts % (Manual) 88.0 H Lymphocytes % (Manual) 2.0 L Nucleated RBC % Seg Neutrophils # Seg Neutrophils # Man 12.2 H Lymphocytes # (Manual) 0.3 L Monocytes # (Manual) D-Dimer Heparin Anti-Xa Level Sodium 131 L Potassium Chloride 93.6 L Carbon Dioxide BUN 45 H Creatinine 7.2 H Glucose POC Glucose 115 H Lactic Acid Calcium ALT Troponin T C-Reactive Protein Albumin Triglycerides HDL Cholesterol Vitamin B12 Folate 07/18/18 07/18/18 04:23 16:08 WBC RBC Hgb Hct MCV MCH RDW Plt Count Lymph % (Auto) Lymph # Baso # Seg Neutrophils % Seg Neuts % (Manual) Lymphocytes % (Manual) Nucleated RBC % Seg Neutrophils # Seg Neutrophils # Man Lymphocytes # (Manual) Monocytes # (Manual) D-Dimer Heparin Anti-Xa Level Sodium Potassium Chloride Carbon Dioxide BUN 22 H Creatinine 4.9 H Glucose 60 L POC Glucose 62 L Lactic Acid Calcium 7.5 L ALT Troponin T C-Reactive Protein Albumin Triglycerides HDL Cholesterol Vitamin B12 Folate Allied health notes reviewed: nursing
[2018-07-18] MEDS: MAXIPIME/NS 1 GM/100 ML 1 GM/100 ML BAG IV SCH (21:52)
[2018-07-18] MEDS: ELIQUIS PO SCH (21:52)
[2018-07-19] MEDS: HumaLOG SUB-Q SCH ×3 (07:28→18:04)
[2018-07-19] MEDS: PROAMATINE PO SCH ×3 (08:32→21:49)
[2018-07-19] MEDS: RENVELA PO SCH ×3 (08:32→18:23)
[2018-07-19] MEDS ORDERED: NACL 0.9 (PRIMING MACHINE ONLY DIALYSIS) MC ONE (08:47)
--- NOTE | 2018-07-19 09:25 | Progress Note ---
Assessment and Plan Cultures: 06/29/2018 Blood culture: No growth 07/01/2018 peritoneal dialysate culture: No growth 07/08/2018 blood culture: No growth 07/10/2018 peritoneal fluid culture: Micrococcus + related species 07/12/2018 peritoneal fluid culture: Micrococcus + related species A/P: 67-year-old female with ESRD on peritoneal dialysis, hypertension, hyperlipidemia, diabetes mellitus type 2 who presented to the emergency room and was hospitalized on 06/29/2018 with complaints of fall. Now with: 1) Sepsis: Leukocytosis Improved. secondary to PD associated peritonitis. Chest x-ray without pneumonia, blood cultures with no growth. Patient doesn't make any urine, UTI unlikely. No report of diarrhea. CT abdomen shows moderate-sized umbilical hernia present containing adipose tissue. No herniated loops of bowel are seen. 2 ESRD on PD: Renally dose antibiotics. S/P Right IJ permacath placement Awaiting PD catheter removal. S/P PD catheter removal on 07/18/18. Anticipate 2 weeks of Ceftazidime and Vancomycin post HD. 3) Left leg DVT: on anticoagulation. 4) Acute Encephalopathy: etio unclear. Improved. Recs: Continue cefepime and vancomycin renally adjusted, D10 Anticipate discharge on Ceftazidime IV 2gms Sunday, 2gms Sunday and 3 gms Sunday and Vancomycin 1gm post HD for 2 weeks ending 08-01-18 Order placed with Case management ID is signing off [facility] M: [id number] O:[phone] Subjective Date of service: 07/19/18 Principal diagnosis: dvt leg Interval history: Patient seen and examined. Mild abdominal pain, but overall she states that she is feeling better. Objective - Exam Narrative Exam: Constitutional: Alert, cooperative. No acute distress Head, Ears, Nose: Normocephalic, atraumatic. External ears, nose normal Eyes: Conjunctivae/corneas clear. No icterus. No ptosis. Neck: Supple, no meningeal signs Oral: mucosa moist, no thrush Cardiovascular: S1, S2 normal. Respiratory: Good air entry, clear to auscultation bilaterally GI: Soft, mildly tender. Musculoskeletal: No pedal edema, no cyanosis. Skin: No rash or abscess Hem/Lymphatic: No palpable cervical or supraclavicular nodes. No lymphangitis Psych: Mood ok. Affect normal Neurological: Awake, alert, less confusion. Lines: Right IJ Permacath - Constitutional Vitals: Vital Signs Temp Pulse Resp BP Pulse Ox 98.5 F 109 H 18 81/51 100 07/19/18 06:20 07/19/18 08:15 07/19/18 06:20 07/19/18 08:15 07/19/18 02:58 Temperature -Last 24 Hours Temperature 98.5 F Temperature 98.5 F Temperature 99.1 F Temperature 99.2 F Temperature 99.7 F Temperature 99.5 F Temperature 98.2 F - Labs CBC & Chem 7: 07/19/18 13:04 07/18/18 04:23 Labs: Abnormal lab results 07/18/18 07/18/18 07/18/18 Range/Units 16:08 18:24 21:55 POC Glucose 62 L 116 H 114 H (70-105)
--- NOTE | 2018-07-19 10:46 | Progress Note ---
Assessment and Plan Impression: * End stage renal disease on PD * Catheter associated peritonitis==mirococcus * LE DVT * Elevated troponin --TTE: LVEF 55-60% --Strest shannon: nml perfusion, nml LV function * Hypokalemia * Secondary hyperparathyroidism * Erythrocytosis, resolved - ?secondary to hemoconcentration vs other --Renal u/s: no mass, small bilateral cysts Plan: * Patient is s/p permcath placement * HD - MWF * UF as tolerated * Surgery note reviewed. s/p PD catheter removal * abx per id * Anticoagulation per primary team * Replete lytes prn * Renal diet * Dose medications for renal function * needs ltac vs isabella Subjective Date of service: 07/19/18 Principal diagnosis: dvt leg Interval history: resting well in bed today Objective - Exam Narrative Exam: General appearance: well-developed, well-nourished, appears stated age EENT: PERRL, mucous membranes moist Neck: no JVD, no thyromegaly, no carotid bruit, supple Respiratory: Present: Clear to Ascultation Cardiology: regular, normal heart rate Gastrointestinal: normoactive bowel sounds, tenderness (mild diffuse tenderness) Integumentary: no rash, other (no edema) - Vital Signs Vital signs: Vital Signs - 12hr 07/19/18 07/19/18 07/19/18 02:58 06:20 06:30 Temperature 98.5 F 98.5 F Pulse Rate 105 H 96 H 97 H Respiratory 18 18 Rate Blood Pressure 92/49 90/50 96/50 O2 Sat by Pulse 100 Oximetry 07/19/18 07/19/18 07/19/18 06:45 07:00 07:15 Temperature Pulse Rate 107 H 107 H 107 H Respiratory Rate Blood Pressure 86/47 122/53 88/31 O2 Sat by Pulse Oximetry 07/19/18 07/19/18 07/19/18 07:30 07:45 08:00 Temperature Pulse Rate 107 H 105 H 107 H Respiratory Rate Blood Pressure 91/46 83/46 80/50 O2 Sat by Pulse Oximetry 07/19/18 08:15 Temperature Pulse Rate 109 H Respiratory Rate Blood Pressure 81/51 O2 Sat by Pulse Oximetry - Lab 07/18/18 00:56 07/18/18 04:23 Most recent lab results Calcium 7.5 mg/dL (8.4-10.2) L 07/18/18 04:23 Medications & Allergies - Medications Allergies/Adverse Reactions: Allergies No Known Allergies Allergy (Verified 08/18/14 08:52) Home Medications: Home Medications Medication Instructions Recorded Confirmed Last Taken Type Calcitriol [Rocaltrol] 0.5 mcg PO QDAY 06/29/18 06/29/18 Unknown History Simvastatin [Zocor] 20 mg PO DAILY 06/29/18 06/29/18 Unknown History Apixaban [Eliquis] 5 mg PO Q12HR tablet 07/15/18 Unknown Rx Aspirin [Aspirin BABY CHEW TAB] 81 mg PO QDAY tab.chew 07/15/18 Unknown Rx AtorvaSTATin [Lipitor] 40 mg PO QHS tablet 07/15/18 Unknown Rx Cefepime/Ns 1 gm/100 ml 1 gm IV Q24HR 21 Days piggyback 07/15/18 Unknown Rx [Maxipime/Ns 1 gm/100 ml] Docusate Sodium [Colace CAP] 100 mg PO BID capsule 07/15/18 Unknown Rx Fludrocortisone [Florinef] 0.1 mg PO QDAY tablet 07/15/18 Unknown Rx Folic Acid [Folvite] 1 mg PO QDAY tablet 07/15/18 Unknown Rx Lactulose [Cephulac] 20 gm PO TID PRN oral.liqd 07/15/18 Unknown Rx Lispro Insulin [Humalog] 0 unit SUB-Q ACHS units 07/15/18 Unknown Rx Midodrine [Proamatine] 10 mg PO TID tablet 07/15/18 Unknown Rx Pantoprazole [Protonix TAB] 40 mg PO QDAY tablet 07/15/18 Unknown Rx Polyethylene Glycol 3350 [Miralax 17 gm PO QDAY powd.pack 07/15/18 Unknown Rx 3350] Sevelamer Carbonate [Renvela] 1,600 mg PO TIDWM tablet 07/15/18 Unknown Rx Active Medications: Generic Name Dose Route Start Last Admin Trade Name Freq PRN Reason Stop Dose Admin Acetaminophen 650 mg 07/15/18 12:55 07/15/18 13:53 Tylenol PO 650 mg Q4H PRN Administration Pain, Mild (1-3) Apixaban 5 mg 07/18/18 22:00 07/18/18 21:52 Eliquis PO 5 mg Q12HR DIANE Administration Protocol Aspirin 81 mg 06/29/18 13:00 07/18/18 09:05 Baby Aspirin PO Not Given QDAY DIANE Atorvastatin Calcium 40 mg 06/29/18 22:00 07/18/18 21:52 Lipitor PO 40 mg QHS DIANE Administration Calcitriol 0.5 mcg 06/29/18 13:00 07/18/18 09:06 Rocaltrol PO Not Given QDAY [facility] Docusate Sodium 100 mg 07/02/18 10:00 07/18/18 22:03 Colace PO Not Given BID DIANE Fludrocortisone Acetate 0.1 mg 07/15/18 14:00 07/18/18 09:07 Florinef PO 0.1 mg QDAY DIANE Administration Folic Acid 1 mg 07/10/18 14:00 07/18/18 09:06 Folvite PO Not Given QDAY [facility] Heparin Sodium (Porcine) 5,000 unit 07/16/18 18:52 Heparin IV THOMAS PRN hemodialysis Sodium Chloride 100 mls @ 999 mls/hr 07/16/18 18:52 Nacl 0.9% IV THOMAS PRN Hypotension Cefepime HCl 1 gm in 100 mls @ 200 mls/hr 07/16/18 22:00 07/18/18 21:52 Maxipime/Ns 1 Gm/100 Ml IV 200 mls/hr QHS [facility] Administration Protocol Vancomycin HCl 1 gm in 250 mls @ 167.007 mls/hr 07/17/18 18:00 07/17/18 17:05 Vancomycin/Ns 1 Gm/250 Ml IV 167.007 mls/hr [id number] DIANE Administration Sodium Chloride 1,000 mls @ 42 mls/hr 07/18/18 14:00 07/18/18 14:10 Nacl 0.9% 1000 Ml IV 42 mls/hr DIRECT [facility] Administration Insulin Human Lispro 0 unit 06/29/18 22:00 07/19/18 07:28 Humalog SUB-Q Not Given ACHS [facility] Protocol Lactulose 20 gm 07/13/18 12:00 Cephulac PO TID PRN Constipation Midodrine 10 mg 07/01/18 14:00 07/19/18 08:32 Proamatine PO Not Given TID [facility] Morphine Sulfate 2 mg 07/08/18 14:51 04/10/19 22:48 Morphine IV 2 mg Q4H PRN Administration Pain, Moderate (4-6) Pantoprazole Sodium 40 mg 07/08/18 10:00 07/18/18 09:06 Protonix PO Not Given QDAY DIANE Polyethylene Glycol 17 gm 07/02/18 10:00 07/18/18 09:06 Miralax 3350 PO Not Given QDAY DIANE Sevelamer Carbonate 1,600 mg 06/29/18 12:00 07/19/18 08:32 Renvela PO Not Given TIDWM DIANE
--- NOTE | 2018-07-19 10:50 | Discharge Summary ---
Providers - Providers Date of Admission: 06/29/18 09:13 Attending physician: MANNY TIJERINA MD 06/29/18 00:05 Consult to Physician [CONS] Stat Comment: Dr. Lucia spoke with Dr. Crawford @ [id number] Consulting Provider: FEROZ CRAWFORD Physician Instructions: Reason For Exam: esrd 06/29/18 07:56 Consult to Physician [CONS] Routine Comment: DR BARNETT NOTIFIED [id number] Consulting Provider: ELSY BARNETT Physician Instructions: Reason For Exam: IV access 06/29/18 09:15 Consult to Physician [CONS] Routine Comment: Consulting Provider: LAWANDA MCELROY Physician Instructions: Reason For Exam: septic shock 06/29/18 09:17 Consult to Physician [CONS] Routine Comment: dr crawford notified Consulting Provider: ISMA DAVILA Physician Instructions: Reason For Exam: esrd 07/03/18 11:02 Consult to Physician [CONS] Routine Comment: Consulting Provider: JENNA MOTLEY Physician Instructions: Reason For Exam: DVT lower ext 07/08/18 13:33 Consult to Dietitian/Nutrition [CONS] Routine Physician Instructions: Reason For Exam: Reason for Consult: Poor oral intake 07/10/18 09:16 Consult to Physician [CONS] Routine Comment: Consulting Provider: LORETA LANDEROS Physician Instructions: Reason For Exam: sirs 07/15/18 18:22 Consult to Physician [CONS] Routine Comment: called answ. serv./left mess, answ. machine/beck Consulting Provider: SOFYA GEE I Physician Instructions: Reason For Exam: pd catheter removal Consult to Physician [CONS] Routine Comment: called answ. service/beck Consulting Provider: ELSY BARNETT Physician Instructions: Reason For Exam: perm cath placement 07/17/18 06:38 Physical Therapy Evaluation and Treat [CONS] Routine Comment: Reason For Exam: Loss of functional mobility Mode of Transport?: Wheelchair Weight bearing status?: Full wt bearing Assistive devices?: No 07/18/18 16:50 Consult to Case Management [CONS] Urgent Services Needed at Discharge: Other Notified:: no Additional Physician Instructions: [facility] M [phone] O [phone] F [phone] OUTPATIENT PARENTERAL ANTIBIOTIC THERAPY ORDERS Diagnoses: PD associated peritonititis Antimicrobial administration: Anticipate discharge on Ceftazidime IV 2gms Sunday, 2gms Sunday and 3 gms Sunday and Vancomycin 1gm post HD for 2 weeks ending 08-01-18 Lab monitoring: CBC, ALT, AST, Vancomycin trough once a week preferly on Sunday morning. Please fax results to [phone] and call [phone] for critical lab results. Alka Varner NP/Dr. Landeros Date: 07/18/18 Primary care physician: JENNYFER OLVERA Hospitalization Condition: Stable Hospital course: The patient is a 67-year-old female with ESRD on peritoneal dialysis, hypertension, hyperlipidemia, diabetes mellitus type 2 who presented to the emergency room and was hospitalized on 06/29/2018 with complaints of fall. She was noted to be hypotensive with leukocytosis. Initial workup was negative for pneumonia. She was empirically treated with IV ceftriaxone for a few days and also needed levophed which was then weaned off. She was found to have a DVT of her left lower extremity. The patient was doing well and was planned for discharge to a [facility] facility however she developed a low-grade temperature on 07/08/2018 along with leukocytosis. She had blood cultures obtained. Due to worsening leukocytosis, infectious diseases was consulted. Patient reported a chronic cough which is unchanged. Denied any nausea or vomiting. Denied any loose watery stools. She Complained of new abdominal pain. She has been continued on peritoneal dialysis throughout hospitalization. The pt was noted to have Sepsis not present on admission with etiology from PD associated peritonitis. The pt had PD fluid cell count noted to be elevated at 6350. Blood cultures were completed and showed no growth to date. Patient was started with hemodialysis and PD was taken out yesterday and grew micrococcus. ID recommended to continue IV antibiotics in LTAC, ID and case management will arrange the IV antibiotics. Abdominal US revealed moderate-sized umbilical hernia present containing adipose tissue. No herniated loops of bowel are seen. Other issues during the hospital saty included c/o cp on admission in which a stress test was completed and found to be negative. PT evaluated the pt and recommended LTAC vs [facility]. [facility] accepted the pt and she will be transferred to [facility]. Dedicated D/C time 32 minutes Disposition: - TO HOME OR SELFCARE Time spent for discharge: 32 minutes Core Measure Documentation - Palliative Care Palliative Care/ Comfort Measures: Not Applicable - Core Measures Any of the following diagnoses?: none Exam - Physical Exam Narrative exam: Not in cardiopulmonary distress. The patient appeared well nourished and normally developed. Vital signs as documented. Head exam is unremarkable. No scleral icterus . Neck is without jugular venous distension, thyromegaly, or carotid bruits. Lungs are clear to auscultation. Cardiac exam reveals regular rate and Rhythm. First and second heart sounds normal. No murmurs, rubs or gallops. Abdominal exam reveals normal bowel sounds, no masses, no organomegaly and no aortic enlargement. Extremities are nonedematous and both femoral and pedal pulses are normal. PRESENTATION SPECIALIST: Alert and oriented 3. No focal weakness. - Constitutional Vitals: Temp Pulse Resp BP Pulse Ox 98.5 F 109 H 18 81/51 100 07/19/18 06:20 07/19/18 08:15 07/19/18 06:20 07/19/18 08:15 07/19/18 02:58 Plan Activity: advance as tolerated Weight Bearing Status: Weight Bear as Tolerated Diet: low salt, diabetic, renal Follow up with: JENNYFER OLVERA MD [Primary Care Provider] - 3-5 Days Prescriptions: Cefepime/Ns 1 gm/100 ml [Maxipime/Ns 1 gm/100 ml] 1 gm IV Q24HR 21 Days piggyback
[2018-07-19] MEDS: FOLVITE PO SCH (11:07)
[2018-07-19] MEDS: FLORINEF PO SCH (11:07)
[2018-07-19] MEDS: PROTONIX PO SCH (11:07)
[2018-07-19] MEDS: ROCALTROL PO SCH (11:08)
[2018-07-19] MEDS: BABY ASPIRIN PO SCH (11:08)
[2018-07-19] MEDS: ELIQUIS PO SCH ×2 (11:08→21:50)
[2018-07-19] MEDS: MIRALAX 3350 PO SCH (11:09)
[2018-07-19] MEDS: COLACE PO SCH ×2 (11:09→21:50)
--- NOTE | 2018-07-19 11:11 | Progress Note ---
Assessment and Plan Assessment and plan: Patient is a 67-year-old female past medical history of end-stage renal disease on peritoneal dialysis, hypertension hyperlipidemia, diabetes mellitus type 2 on diet control, presented to ER by EMS after having a fall around 9 AM in the morning but she had no loss of consciousness or hit her head. She was sitting on bed and accidentally "slid to ground". She was unable to get up from the bed as she was feeling very weak in her legs. Her family called emergency services to break into her house around 5pm. She was then brought to the ER for further evaluation and management . She noted to have highly elevated d-dimer, elevated white count. In the ED, patient was hypotensive w/ WBC 24.8. CTA chest was unremarkable. V/Q scan was also low prob PE. She denied fever, chills, PD fluid has been clear. She was placed on Levophed, given IV Rocephin and admitted. she was diagnosed with SIRS, hypotension. She improved on Levophed was weaned off. She had swelling of the legs on both ultrasound confirmed a DVT of left lower extremity for which she has been . However patient has failure to thrive, debility, she feels very weak and unable to stand. I discussed with case management she started working on acute rehabilitation placement. The patient developed fever and leukocytosis on 07/08/18. Fever resolved but leukocytosis worsened. Antibiotics restarted and blood cultures thus far negative. ID consulted. Sepsis not present on admission - PD associated peritonitis. - PD fluid cell count noted to be elevated at 6350 . Blood cultures were no growth to date. PD culture grew micrococcus. Patient is currently on cefepime and vancomycin - Abdominal US reveals moderate-sized umbilical hernia present containing adipose tissue. No herniated loops of bowel are seen. - Continue to monitor leukocytosis, improved. PD catheter malfunction - PD removed yesterday and grew micrococcus - currently patient is on HD Chronic Hypotension - stable HLD, on statin ESRD on PD, now changed to HD, patient has permcath Nephrology following Diabetes type 2, diet controlled, cont SSRI Elevated troponin/NSTEMI type 2 - Cardiology following - Stress test negative DVT left lower ext. Cont. Eliquis. Disposition; patient was accepted by [facility], but [facility] declined to take her because she has a new HD. Patient will need arrangements for O/P HD. History Interval history: Patient was seen and evaluated this morning, patient didn't have any complaints. PD catheter was taken out yesterday. Hospitalist Physical - Physical exam Narrative exam: Not in cardiopulmonary distress. The patient appeared well nourished and normally developed. Vital signs as documented. Head exam is unremarkable. No scleral icterus . Neck is without jugular venous distension, thyromegaly, or carotid bruits. Lungs are clear to auscultation. Cardiac exam reveals regular rate and Rhythm. First and second heart sounds normal. No murmurs, rubs or gallops. Abdominal exam reveals normal bowel sounds, no masses, no organomegaly and no aortic enlargement. Extremities are nonedematous and both femoral and pedal pulses are normal. [employer]: Alert and oriented 3. No focal weakness. - Constitutional Vitals: Temp Pulse Resp BP Pulse Ox 98.5 F 109 H 18 81/51 100 07/19/18 06:20 07/19/18 08:15 07/19/18 06:20 07/19/18 08:15 07/19/18 02:58 General appearance: Present: no acute distress, well-nourished Results - Labs CBC & Chem 7: 07/18/18 00:56 07/18/18 04:23 Labs: Laboratory Last Values WBC 13.9 K/mm3 (4.5-11.0) H 07/18/18 00:56 RBC 3.43 M/mm3 (3.65-5.03) L 07/18/18 00:56 Hgb 11.8 gm/dl (10.1-14.3) 07/18/18 00:56 Hct 36.4 % (30.3-42.9) 07/18/18 00:56 MCV 106 fl (79-97) H 07/18/18 00:56 MCH 35 pg (28-32) H 07/18/18 00:56 MCHC 33 % (30-34) 07/18/18 00:56 RDW 15.6 % (13.2-15.2) H 07/18/18 00:56 Plt Count 219 K/mm3 (140-440) 07/18/18 00:56 Lymph % (Auto) 6.4 % (13.4-35.0) L 07/15/18 06:42 [place] % (Auto) 3.4 % (0.0-7.3) 07/15/18 06:42 Eos % (Auto) 0.5 % (0.0-4.3) 07/15/18 06:42 Baso % (Auto) 0.1 % (0.0-1.8) 07/15/18 06:42 Lymph # 0.8 K/mm3 (1.2-5.4) L 07/15/18 06:42 [place] # 0.4 K/mm3 (0.0-0.8) 07/15/18 06:42 Eos # 0.1 K/mm3 (0.0-0.4) 07/15/18 06:42 Baso # 0.0 K/mm3 (0.0-0.1) 07/15/18 06:42 Add Manual Diff Complete 07/18/18 00:56 Total Counted 100 07/18/18 00:56 Seg Neutrophils % Slip Caster 07/18/18 00:56 Seg Neuts % (Manual) 88.0 % (40.0-70.0) H 07/18/18 00:56 Band Neutrophils % 6.0 % 07/18/18 00:56 Lymphocytes % (Manual) 2.0 % (13.4-35.0) L 07/18/18 00:56 Reactive Lymphs % (Man) 0 % 07/18/18 00:56 Monocytes % (Manual) 4.0 % (0.0-7.3) 07/18/18 00:56 Eosinophils % (Manual) 0 % (0.0-4.3) 07/18/18 00:56 Basophils % (Manual) 0 % (0.0-1.8) 07/18/18 00:56 Metamyelocytes % 0 % 07/18/18 00:56 Myelocytes % 0 % 07/18/18 00:56 Promyelocytes % 0 % 07/18/18 00:56 Blast Cells % 0 % 07/18/18 00:56 Nucleated RBC % Not Reportable 07/18/18 00:56 Seg Neutrophils # 10.6 K/mm3 (1.8-7.7) H 07/15/18 06:42 Seg Neutrophils # Man 12.2 K/mm3 (1.8-7.7) H 07/18/18 00:56 Band Neutrophils # 0.8 K/mm3 04/11/19 00:56 Lymphocytes # (Manual) 0.3 K/mm3 (1.2-5.4) L 07/18/18 00:56 Abs React Lymphs (Man) 0.0 K/mm3 07/18/18 00:56 Monocytes # (Manual) 0.6 K/mm3 (0.0-0.8) 07/18/18 00:56 Eosinophils # (Manual) 0.0 K/mm3 (0.0-0.4) 07/18/18 00:56 Basophils # (Manual) 0.0 K/mm3 (0.0-0.1) 07/18/18 00:56 Metamyelocytes # 0.0 K/mm3 07/18/18 00:56 Myelocytes # 0.0 K/mm3 07/18/18 00:56 Promyelocytes # 0.0 K/mm3 07/18/18 00:56 Blast Cells # 0.0 K/mm3 07/18/18 00:56 WBC Morphology Not Reportable 07/18/18 00:56 Hypersegmented Neuts Not Reportable 07/18/18 00:56 Hyposegmented Neuts Not Reportable 07/18/18 00:56 Hypogranular Neuts Not Reportable 07/18/18 00:56 Smudge Cells Not Reportable 07/18/18 00:56 Toxic Granulation Not Reportable 07/18/18 00:56 Toxic Vacuolation Not Reportable 07/18/18 00:56 Dohle Bodies Not Reportable 07/18/18 00:56 Pelger-Huet Anomaly Not Reportable 07/18/18 00:56 Nomi Rods Not Reportable 07/18/18 00:56 Platelet Estimate Appears normal 07/18/18 00:56 Clumped Platelets Not Reportable 07/18/18 00:56 Plt Clumps, EDTA Not Reportable 07/18/18 00:56 Large Platelets Few 07/18/18 00:56 Giant Platelets Rare 07/18/18 00:56 Platelet Satelliting Not Reportable 07/18/18 00:56 Plt Morphology Comment Not Reportable 07/18/18 00:56 RBC Morphology Not Reportable 07/18/18 00:56 Dimorphic RBCs Not Reportable 07/18/18 00:56 Polychromasia Not Reportable 07/18/18 00:56 Hypochromasia Not Reportable 07/18/18 00:56 Poikilocytosis Not Reportable 07/18/18 00:56 Anisocytosis Few 07/18/18 00:56 Microcytosis Not Reportable 07/18/18 00:56 Macrocytosis Not Reportable 07/18/18 00:56 Spherocytes Not Reportable 07/18/18 00:56 Pappenheimer Bodies Not Reportable 07/18/18 00:56 Sickle Cells Not Reportable 07/18/18 00:56 Target Cells Few 07/18/18 00:56 Tear Drop Cells Not Reportable 07/18/18 00:56 Ovalocytes Not Reportable 07/18/18 00:56 Helmet Cells Not Reportable 07/18/18 00:56 [place] Bodies Not Reportable 07/18/18 00:56 [place] Rings Not Reportable 07/18/18 00:56 [place] Cells Not Reportable 07/18/18 00:56 Bite Cells Not Reportable 07/18/18 00:56 Crenated Cell Not Reportable 07/18/18 00:56 Elliptocytes Not Reportable 07/18/18 00:56 Acanthocytes (Spur) Not Reportable 07/18/18 00:56 Rouleaux Not Reportable 07/18/18 00:56 Hemoglobin C Crystals Not Reportable 07/18/18 00:56 Schistocytes Not Reportable 07/18/18 00:56 Malaria parasites Not Reportable 07/18/18 00:56 Navneet Bodies Not Reportable 07/18/18 00:56 Hem Pathologist Commnt No 07/18/18 00:56 PT 13.6 Sec. (12.2-14.9) 07/03/18 12:39 INR 0.98 (0.87-1.13) 07/03/18 12:39 APTT 34.1 Sec. (24.2-36.6) 07/03/18 12:39 D-Dimer > 71355 ng/mlDDU (0-234) H 06/28/18 22:26 Heparin Anti-Xa Level 1.70 U.I./ml (0.3-0.7) H 07/04/18 14:59 Sodium 137 mmol/L (137-145) 07/18/18 04:23 Potassium 4.2 mmol/L (3.6-5.0) 07/18/18 04:23 Chloride 99.4 mmol/L (98-107) 07/18/18 04:23 Carbon Dioxide 23 mmol/L (22-30) 07/18/18 04:23 Anion Gap 19 mmol/L 07/18/18 04:23 BUN 22 mg/dL (7-17) H 07/18/18 04:23 Creatinine 4.9 mg/dL (0.7-1.2) H 07/18/18 04:23 Estimated GFR 11 ml/min 07/18/18 04:23 BUN/Creatinine Ratio 4 % 07/18/18 04:23 Glucose 60 mg/dL (65-100) L 07/18/18 04:23 POC Glucose 114 (70-105) H 07/18/18 21:55 Lactic Acid 2.20 mmol/L (0.7-2.0) H* 07/02/18 05:22 Calcium 7.5 mg/dL (8.4-10.2) L 07/18/18 04:23 Total Bilirubin 0.40 mg/dL (0.1-1.2) 06/28/18 20:54 AST 25 units/L (5-40) 06/28/18 20:54 ALT 5 units/L (7-56) L 06/28/18 20:54 Alkaline Phosphatase 88 units/L (35-129) 06/28/18 20:54 Total Creatine Kinase 118 units/L (30-135) 06/29/18 20:37 Troponin T 0.077 ng/mL (0.00-0.029) H 06/29/18 20:37 C-Reactive Protein 7.40 mg/dL (0.00-1.30) H 07/01/18 13:32 Total Protein 7.4 g/dL (6.3-8.2) 06/28/18 20:54 Albumin 3.2 g/dL (3.9-5) L 06/28/18 20:54 Albumin/Globulin Ratio 0.8 % 06/28/18 20:54 Triglycerides 194 mg/dL (2-149) H 06/28/18 10:38 Cholesterol 167 mg/dL (50-199) 06/28/18 10:38 LDL Cholesterol Direct 61 mg/dL (50-130) 06/28/18 10:38 HDL Cholesterol 68 mg/dL (40-59) H 06/28/18 10:38 Cholesterol/HDL Ratio 2.45 % 06/28/18 10:38 Vitamin B12 1416 pg/mL (211-911) H 07/08/18 05:19 Folate 2.39 ng/mL (7.3-26.0) L 07/08/18 05:19 Fluid Type Peritoneal 07/14/18 14:48 Fluid Color Straw 07/14/18 14:48 Fluid Appearance Cloudy 07/14/18 14:48 Fluid WBC 2700 /mm3 07/14/18 14:48 Fluid RBC 39 /mm3 07/14/18 14:48 Fluid Seg Neutrophils 96.0 % 07/14/18 14:48 Fluid Lymphocytes 3.0 % 07/14/18 14:48 Fluid Reactive Lymphs 0 % 07/14/18 14:48 Fluid Monocytes 1.0 % 07/14/18 14:48 Fluid Eosinophils 0 % 07/14/18 14:48 Fluid Basophils 0 % 07/14/18 14:48 Random Vancomycin 19 ug/mL (0-40.0) 07/16/18 05:12 Active Medications - Current Medications Current Medications: Generic Name Dose Route Start Last Admin Trade Name Freq PRN Reason Stop Dose Admin Acetaminophen 650 mg 07/15/18 12:55 07/15/18 13:53 Tylenol PO 650 mg Q4H PRN Administration Pain, Mild (1-3) Apixaban 5 mg 07/18/18 22:00 07/18/18 21:52 Eliquis PO 5 mg Q12HR DIANE Administration Protocol Aspirin 81 mg 06/29/18 13:00 07/18/18 09:05 Baby Aspirin PO Not Given QDAY DIANE Atorvastatin Calcium 40 mg 06/29/18 22:00 07/18/18 21:52 Lipitor PO 40 mg QHS DIANE Administration Calcitriol 0.5 mcg 06/29/18 13:00 07/18/18 09:06 Rocaltrol PO Not Given QDAY DIANE Docusate Sodium 100 mg 07/02/18 10:00 07/18/18 22:03 Colace PO Not Given BID DIANE Fludrocortisone Acetate 0.1 mg 07/15/18 14:00 07/18/18 09:07 Florinef PO 0.1 mg QDAY DIANE Administration Folic Acid 1 mg 07/10/18 14:00 07/18/18 09:06 Folvite PO Not Given QDAY [facility] Heparin Sodium (Porcine) 5,000 unit 07/16/18 18:52 Heparin IV THOMAS PRN hemodialysis Sodium Chloride 100 mls @ 999 mls/hr 07/16/18 18:52 Nacl 0.9% IV THOMAS PRN Hypotension Cefepime HCl 1 gm in 100 mls @ 200 mls/hr 07/16/18 22:00 07/18/18 21:52 Maxipime/Ns 1 Gm/100 Ml IV 200 mls/hr QHS [facility] Administration Protocol Vancomycin HCl 1 gm in 250 mls @ 167.007 mls/hr 07/17/18 18:00 07/17/18 17:05 Vancomycin/Ns 1 Gm/250 Ml IV 167.007 mls/hr [id number] DIANE Administration Sodium Chloride 1,000 mls @ 42 mls/hr 07/18/18 14:00 07/18/18 14:10 Nacl 0.9% 1000 Ml IV 42 mls/hr DIRECT [facility] Administration Insulin Human Lispro 0 unit 06/29/18 22:00 07/19/18 07:28 Humalog SUB-Q Not Given ACHS [facility] Protocol Lactulose 20 gm 07/13/18 12:00 Cephulac PO TID PRN Constipation Midodrine 10 mg 07/01/18 14:00 07/19/18 08:32 Proamatine PO Not Given TID [facility] Morphine Sulfate 2 mg 07/08/18 14:51 07/17/18 22:48 Morphine IV 2 mg Q4H PRN Administration Pain, Moderate (4-6) Pantoprazole Sodium 40 mg 07/08/18 10:00 07/18/18 09:06 Protonix PO Not Given QDAY [facility] Polyethylene Glycol 17 gm 07/02/18 10:00 07/18/18 09:06 Miralax 3350 PO Not Given QDAY [facility] Sevelamer Carbonate 1,600 mg 06/29/18 12:00 07/19/18 08:32 Renvela PO Not Given TIDWM [facility] Nutrition/Malnutrition Assess - Dietary Evaluation Nutrition/Malnutrition Findings: Nutrition Notes Start: 07/05/18 14:49 Freq: Status: Active Protocol: Document 07/18/18 14:21 RM (Rec: 07/18/18 14:24 RM [id number]) Nutrition Notes Initial or Follow up Reassessment Current Diagnosis Diabetes,Hypertension Other Pertinent Diagnosis ESRD on PD, Possible sepsis Current Diet NPO Labs/Tests Reviewed Pertinent Medications Reviewed Height 5 ft 6 in Weight 102.5 kg [place] Body Weight (kg) 59.09 BMI 36.4 Subjective/Other Information Pt asleep at time of visit. Per tech pt sipped Nepro last week but is unsure how pt has was eating before NPO status. Burn Absent Trauma Absent #1 Nutrition Diagnosis Inadequate oral intake Diagnosis Progress(for reassessment Continues documentation) Is patient on ventilator? No Is Patient Ambulatory and/or Out of Bed Yes REE-([place]. Jeor-ambulatory/OOB) [ 2030.275 [id number]] Kcal/Kg value to use for calculation 17 Approximate Energy Requirements Using 1743 kcal/Kg Calculation Used for Recommendations Kcal/kg Additional Notes Protein Needs: 92-100g (1.2-1. 3g/kg, 77kg adjBW) Fluid Needs: 1 ml/kcal Nutrition Intervention Change Diet Order: Continue current Add Supplement/Snack (indicate name/kcal Nepro 1 daily once diet /protein ) advance Provides kCal: 425 Provides Protein (gm) 19 Goal #1 Diet advancement Anticipated Discharge Needs: Renal diet Follow-Up By: 07/22/18 Additional Comments Follow for PO and ONS intake
[2018-07-19] MEDS: MORPHINE IV PRN ×3 (12:16→21:50)
[2018-07-19 13:20] LABS: Hematocrit 36.8 % (30.3-42.9); Hemoglobin 11.7 gm/dl (10.1-14.3); Mean Corpuscular HGB Conc 32 % (30-34); Mean Corpuscular Volume 108 fl (79-97); Platelet Count 209 K/mm3 (140-440); Red Cell Distribution Width 16.1 % (13.2-15.2)
--- NOTE | 2018-07-19 13:38 | Progress Note ---
Subjective Date of service: 07/19/18 Principal diagnosis: dvt leg Interval history: Patient is seen today for: Septic Shock (etiology unclear) with lactic acidosis and hypotension; Hyperlipidemia; ESRD on PD; Diabetes type 2; Elevated troponin/NSTEMI type 2 Seen and examined at bedside; 24hour events reviewed; nursing and respiratory care staff consulted; no adverse overnight events reported to me; resting peacefully in bed; looks and feels better; denies acute chest pains or palpitations; No N/V/F/C; has some lower abdominal pain, episode of fecal incontinence this morning( received a dose of lactulose- possible overflow diarrhea), states she does not have an appetite this morning. Objective Vital Signs - 12hr 07/19/18 07/19/18 07/19/18 02:58 06:20 06:30 Temperature 98.5 F 98.5 F Pulse Rate 105 H 96 H 97 H Respiratory 18 18 Rate Blood Pressure 92/49 90/50 96/50 O2 Sat by Pulse 100 Oximetry 07/19/18 07/19/18 07/19/18 06:45 07:00 07:15 Temperature Pulse Rate 107 H 107 H 107 H Respiratory Rate Blood Pressure 86/47 122/53 88/31 O2 Sat by Pulse Oximetry 07/19/18 07/19/18 07/19/18 07:30 07:45 08:00 Temperature Pulse Rate 107 H 105 H 107 H Respiratory Rate Blood Pressure 91/46 83/46 80/50 O2 Sat by Pulse Oximetry 07/19/18 07/19/18 07/19/18 08:15 08:30 08:45 Temperature Pulse Rate 109 H 107 H 109 H Respiratory Rate Blood Pressure 81/51 88/50 81/42 O2 Sat by Pulse Oximetry 07/19/18 07/19/18 07/19/18 09:00 09:20 09:35 Temperature 98.0 F Pulse Rate 104 H 100 H 98 H Respiratory 18 Rate Blood Pressure 86/40 88/47 98/40 O2 Sat by Pulse Oximetry 07/19/18 10:00 Temperature Pulse Rate Respiratory 18 Rate Blood Pressure O2 Sat by Pulse 98 Oximetry Constitutional: no acute distress, alert Eyes: non-icteric ENT: oropharynx moist, other (mallampati 3) Neck: supple, no lymphadenopathy, no JVD, other (large neck circumference) Effort: normal Ascultation: Bilateral: diminished breath sounds, rhonchi (scant in bases) Percussion: Bilateral: not dull Cardiovascular: regular rate and rhythm, other (No R/M) Gastrointestinal: normoactive bowel sounds, soft, non-distended, other (No HSM, PD cathetr, clean dry site, mild lower abdominal tenderness, no rebound) Integumentary: normal Extremities: no cyanosis, no edema, pulses normal, no ischemia or petechiae Neurologic: normal mental status, non-focal exam (grossly), pupils equal and round, motor strength normal and Psychiatric: mood appropriate, affect normal CBC and BMP: 07/19/18 13:04 07/18/18 04:23 ABG, PT/INR, D-dimer: PT/INR, D-dimer PT 13.6 Sec. (12.2-14.9) 07/03/18 12:39 INR 0.98 (0.87-1.13) 07/03/18 12:39 D-Dimer > 18724 ng/mlDDU (0-234) H 06/28/18 22:26 Abnormal lab findings: Abnormal Labs 06/28/18 06/28/18 06/28/18 10:38 20:54 20:54 WBC 24.8 H RBC Hgb 16.6 H Hct 50.3 H MCV 107 H MCH 35 H RDW 15.6 H Plt Count Lymph % (Auto) Lymph # Baso # Seg Neutrophils % Seg Neuts % (Manual) 95.0 H Lymphocytes % (Manual) 3.0 L Nucleated RBC % Seg Neutrophils # Seg Neutrophils # Man 23.6 H Lymphocytes # (Manual) 0.7 L Monocytes # (Manual) D-Dimer Heparin Anti-Xa Level Sodium 131 L Potassium Chloride 89.6 L Carbon Dioxide 19 L BUN 29 H Creatinine 9.3 H Glucose 174 H POC Glucose Lactic Acid Calcium ALT 5 L Troponin T 0.073 H C-Reactive Protein Albumin 3.2 L Triglycerides 194 H HDL Cholesterol 68 H Vitamin B12 Folate 06/28/18 06/29/18 06/29/18 22:26 12:18 13:30 WBC RBC Hgb Hct MCV MCH RDW Plt Count Lymph % (Auto) Lymph # Baso # Seg Neutrophils % Seg Neuts % (Manual) Lymphocytes % (Manual) Nucleated RBC % Seg Neutrophils # Seg Neutrophils # Man Lymphocytes # (Manual) Monocytes # (Manual) D-Dimer > 08081 H Heparin Anti-Xa Level Sodium Potassium Chloride Carbon Dioxide BUN Creatinine Glucose POC Glucose 168 H Lactic Acid Calcium ALT Troponin T 0.073 H C-Reactive Protein Albumin Triglycerides HDL Cholesterol Vitamin B12 Folate 06/29/18 06/29/18 06/29/18 13:30 14:11 16:36 WBC 19.8 H RBC Hgb 14.7 H Hct 45.4 H MCV 108 H MCH 35 H RDW 15.9 H Plt Count Lymph % (Auto) Lymph # Baso # Seg Neutrophils % Seg Neuts % (Manual) Lymphocytes % (Manual) Nucleated RBC % Seg Neutrophils # Seg Neutrophils # Man Lymphocytes # (Manual) Monocytes # (Manual) D-Dimer Heparin Anti-Xa Level Sodium 133 L Potassium Chloride 91.7 L Carbon Dioxide 20 L BUN 33 H Creatinine 9.9 H Glucose 196 H POC Glucose 165 H Lactic Acid Calcium ALT Troponin T C-Reactive Protein Albumin Triglycerides HDL Cholesterol Vitamin B12 Folate 06/29/18 06/29/18 06/30/18 20:37 22:01 04:49 WBC 14.8 H RBC Hgb Hct MCV 106 H MCH 35 H RDW 15.5 H Plt Count Lymph % (Auto) Lymph # Baso # Seg Neutrophils % Seg Neuts % (Manual) 90.0 H Lymphocytes % (Manual) 5.0 L Nucleated RBC % Seg Neutrophils # Seg Neutrophils # Man 13.3 H Lymphocytes # (Manual) 0.7 L Monocytes # (Manual) D-Dimer Heparin Anti-Xa Level Sodium Potassium Chloride Carbon Dioxide BUN Creatinine Glucose POC Glucose 202 H Lactic Acid Calcium ALT Troponin T 0.077 H C-Reactive Protein Albumin Triglycerides HDL Cholesterol Vitamin B12 Folate 06/30/18 06/30/18 06/30/18 04:49 08:27 12:17 WBC RBC Hgb Hct MCV MCH RDW Plt Count Lymph % (Auto) Lymph # Baso # Seg Neutrophils % Seg Neuts % (Manual) Lymphocytes % (Manual) Nucleated RBC % Seg Neutrophils # Seg Neutrophils # Man Lymphocytes # (Manual) Monocytes # (Manual) D-Dimer Heparin Anti-Xa Level Sodium 134 L Potassium 3.5 L Chloride 94.7 L Carbon Dioxide BUN 30 H Creatinine 8.8 H Glucose 182 H POC Glucose 170 H 145 H Lactic Acid Calcium 7.9 L ALT Troponin T C-Reactive Protein Albumin Triglycerides HDL Cholesterol Vitamin B12 Folate 06/30/18 06/30/18 07/01/18 16:44 22:06 07:21 WBC 11.8 H RBC 3.32 L Hgb Hct MCV 105 H MCH 35 H RDW 15.5 H Plt Count 125 L Lymph % (Auto) Lymph # Baso # Seg Neutrophils % Seg Neuts % (Manual) Lymphocytes % (Manual) Nucleated RBC % Seg Neutrophils # Seg Neutrophils # Man Lymphocytes # (Manual) Monocytes # (Manual) D-Dimer Heparin Anti-Xa Level Sodium Potassium Chloride Carbon Dioxide BUN Creatinine Glucose POC Glucose 155 H 174 H Lactic Acid Calcium ALT Troponin T C-Reactive Protein Albumin Triglycerides HDL Cholesterol Vitamin B12 Folate 07/01/18 07/01/18 07/01/18 07:21 08:22 11:38 WBC RBC Hgb Hct MCV MCH RDW Plt Count Lymph % (Auto) Lymph # Baso # Seg Neutrophils % Seg Neuts % (Manual) Lymphocytes % (Manual) Nucleated RBC % Seg Neutrophils # Seg Neutrophils # Man Lymphocytes # (Manual) Monocytes # (Manual) D-Dimer Heparin Anti-Xa Level Sodium 134 L Potassium Chloride 95.9 L Carbon Dioxide BUN 31 H Creatinine 8.4 H Glucose 151 H POC Glucose 117 H 166 H Lactic Acid Calcium 7.8 L ALT Troponin T C-Reactive Protein Albumin Triglycerides HDL Cholesterol Vitamin B12 Folate 07/01/18 07/01/18 07/01/18 13:32 13:32 16:27 WBC RBC Hgb Hct MCV MCH RDW Plt Count Lymph % (Auto) Lymph # Baso # Seg Neutrophils % Seg Neuts % (Manual) Lymphocytes % (Manual) Nucleated RBC % Seg Neutrophils # Seg Neutrophils # Man Lymphocytes # (Manual) Monocytes # (Manual) D-Dimer Heparin Anti-Xa Level Sodium Potassium Chloride Carbon Dioxide BUN Creatinine Glucose POC Glucose 149 H Lactic Acid 2.20 H* Calcium ALT Troponin T C-Reactive Protein 7.40 H Albumin Triglycerides HDL Cholesterol Vitamin B12 Folate 07/01/18 07/01/18 07/02/18 19:35 21:36 05:22 WBC RBC Hgb Hct MCV MCH RDW Plt Count Lymph % (Auto) Lymph # Baso # Seg Neutrophils % Seg Neuts % (Manual) Lymphocytes % (Manual) Nucleated RBC % Seg Neutrophils # Seg Neutrophils # Man Lymphocytes # (Manual) Monocytes # (Manual) D-Dimer Heparin Anti-Xa Level Sodium Potassium Chloride Carbon Dioxide BUN Creatinine Glucose POC Glucose 129 H Lactic Acid 2.60 H* 2.20 H* Calcium ALT Troponin T C-Reactive Protein Albumin Triglycerides HDL Cholesterol Vitamin B12 Folate 07/02/18 07/02/18 07/02/18 05:22 05:22 07:11 WBC 12.6 H RBC 3.51 L Hgb Hct MCV 105 H MCH 35 H RDW Plt Count 132 L Lymph % (Auto) Lymph # Baso # Seg Neutrophils % Seg Neuts % (Manual) 92.0 H Lymphocytes % (Manual) 2.0 L Nucleated RBC % Seg Neutrophils # Seg Neutrophils # Man 11.6 H Lymphocytes # (Manual) 0.3 L Monocytes # (Manual) D-Dimer Heparin Anti-Xa Level Sodium 131 L Potassium 3.3 L Chloride 93.1 L Carbon Dioxide BUN 31 H Creatinine 7.5 H Glucose 228 H POC Glucose 215 H Lactic Acid Calcium 7.7 L ALT Troponin T C-Reactive Protein Albumin Triglycerides HDL Cholesterol Vitamin B12 Folate 07/02/18 07/02/18 07/03/18 15:35 21:56 10:56 WBC RBC Hgb Hct MCV MCH RDW Plt Count Lymph % (Auto) Lymph # Baso # Seg Neutrophils % Seg Neuts % (Manual) Lymphocytes % (Manual) Nucleated RBC % Seg Neutrophils # Seg Neutrophils # Man Lymphocytes # (Manual) Monocytes # (Manual) D-Dimer Heparin Anti-Xa Level Sodium 130 L Potassium Chloride 91.6 L Carbon Dioxide BUN 33 H Creatinine 7.8 H Glucose POC Glucose 123 H 135 H Lactic Acid Calcium 7.7 L ALT Troponin T C-Reactive Protein Albumin Triglycerides HDL Cholesterol Vitamin B12 Folate 07/03/18 07/03/18 07/03/18 11:00 21:03 22:06 WBC 11.9 H RBC 3.59 L Hgb Hct MCV 103 H MCH 35 H RDW Plt Count Lymph % (Auto) Lymph # Baso # Seg Neutrophils % Seg Neuts % (Manual) 94.0 H Lymphocytes % (Manual) 5.0 L Nucleated RBC % Seg Neutrophils # Seg Neutrophils # Man 11.2 H Lymphocytes # (Manual) 0.6 L Monocytes # (Manual) D-Dimer Heparin Anti-Xa Level 0.28 L Sodium Potassium Chloride Carbon Dioxide BUN Creatinine Glucose POC Glucose 177 H Lactic Acid Calcium ALT Troponin T C-Reactive Protein Albumin Triglycerides HDL Cholesterol Vitamin B12 Folate 07/04/18 07/04/18 07/04/18 01:08 05:22 05:22 WBC 13.1 H RBC Hgb Hct MCV 104 H MCH 35 H RDW Plt Count 139 L Lymph % (Auto) 5.0 L Lymph # 0.7 L Baso # 0.2 H Seg Neutrophils % 87.7 H Seg Neuts % (Manual) Lymphocytes % (Manual) Nucleated RBC % Seg Neutrophils # 11.5 H Seg Neutrophils # Man Lymphocytes # (Manual) Monocytes # (Manual) D-Dimer Heparin Anti-Xa Level Sodium 132 L Potassium 3.1 L Chloride 92.4 L Carbon Dioxide BUN 30 H Creatinine 7.4 H Glucose 113 H POC Glucose 106 H Lactic Acid Calcium 7.8 L ALT Troponin T C-Reactive Protein Albumin Triglycerides HDL Cholesterol Vitamin B12 Folate 07/04/18 07/04/18 07/04/18 05:22 12:15 14:59 WBC RBC Hgb Hct MCV MCH RDW Plt Count Lymph % (Auto) Lymph # Baso # Seg Neutrophils % Seg Neuts % (Manual) Lymphocytes % (Manual) Nucleated RBC % Seg Neutrophils # Seg Neutrophils # Man Lymphocytes # (Manual) Monocytes # (Manual) D-Dimer Heparin Anti-Xa Level 1.31 H 1.70 H Sodium Potassium Chloride Carbon Dioxide BUN Creatinine Glucose POC Glucose 200 H Lactic Acid Calcium ALT Troponin T C-Reactive Protein Albumin Triglycerides HDL Cholesterol Vitamin B12 Folate 07/04/18 07/05/18 07/05/18 20:56 06:17 06:17 WBC RBC 3.51 L Hgb Hct MCV 104 H MCH 35 H RDW Plt Count Lymph % (Auto) 7.8 L Lymph # 0.7 L Baso # Seg Neutrophils % 85.2 H Seg Neuts % (Manual) Lymphocytes % (Manual) Nucleated RBC % Seg Neutrophils # Seg Neutrophils # Man Lymphocytes # (Manual) Monocytes # (Manual) D-Dimer Heparin Anti-Xa Level Sodium 132 L Potassium 3.1 L Chloride 92.7 L Carbon Dioxide BUN 29 H Creatinine 7.3 H Glucose 115 H POC Glucose 133 H Lactic Acid Calcium 7.9 L ALT Troponin T C-Reactive Protein Albumin Triglycerides HDL Cholesterol Vitamin B12 Folate 07/05/18 07/06/18 07/06/18 23:47 06:53 06:53 WBC RBC 3.47 L Hgb Hct MCV 104 H MCH 35 H RDW Plt Count Lymph % (Auto) Lymph # Baso # Seg Neutrophils % Seg Neuts % (Manual) 93.0 H Lymphocytes % (Manual) 2.0 L Nucleated RBC % Seg Neutrophils # Seg Neutrophils # Man 8.6 H Lymphocytes # (Manual) 0.2 L Monocytes # (Manual) D-Dimer Heparin Anti-Xa Level Sodium 132 L Potassium 3.2 L Chloride 94.5 L Carbon Dioxide BUN 32 H Creatinine 8.7 H Glucose 106 H POC Glucose 112 H Lactic Acid Calcium 7.8 L ALT Troponin T C-Reactive Protein Albumin Triglycerides HDL Cholesterol Vitamin B12 Folate 07/06/18 07/06/18 07/07/18 16:23 22:56 07:56 WBC RBC Hgb Hct MCV MCH RDW Plt Count Lymph % (Auto) Lymph # Baso # Seg Neutrophils % Seg Neuts % (Manual) Lymphocytes % (Manual) Nucleated RBC % Seg Neutrophils # Seg Neutrophils # Man Lymphocytes # (Manual) Monocytes # (Manual) D-Dimer Heparin Anti-Xa Level Sodium Potassium Chloride Carbon Dioxide BUN Creatinine Glucose POC Glucose 126 H 139 H 181 H Lactic Acid Calcium ALT Troponin T C-Reactive Protein Albumin Triglycerides HDL Cholesterol Vitamin B12 Folate 07/07/18 07/07/18 07/07/18 09:35 09:35 12:52 WBC RBC Hgb Hct MCV 105 H MCH 35 H RDW Plt Count Lymph % (Auto) 6.3 L Lymph # 0.6 L Baso # Seg Neutrophils % 87.9 H Seg Neuts % (Manual) Lymphocytes % (Manual) Nucleated RBC % Seg Neutrophils # 8.2 H Seg Neutrophils # Man Lymphocytes # (Manual) Monocytes # (Manual) D-Dimer Heparin Anti-Xa Level Sodium 130 L Potassium 3.4 L Chloride 90.3 L Carbon Dioxide BUN 29 H Creatinine 8.0 H Glucose 201 H POC Glucose 161 H Lactic Acid Calcium 8.0 L ALT Troponin T C-Reactive Protein Albumin Triglycerides HDL Cholesterol Vitamin B12 Folate 07/07/18 07/08/18 07/08/18 21:56 05:19 05:19 WBC 12.7 H RBC Hgb Hct MCV 104 H MCH 35 H RDW Plt Count Lymph % (Auto) Lymph # Baso # Seg Neutrophils % Seg Neuts % (Manual) 92.0 H Lymphocytes % (Manual) 5.0 L Nucleated RBC % 1.0 H Seg Neutrophils # Seg Neutrophils # Man 11.7 H Lymphocytes # (Manual) 0.6 L Monocytes # (Manual) D-Dimer Heparin Anti-Xa Level Sodium 134 L Potassium 3.4 L Chloride 93.6 L Carbon Dioxide BUN 30 H Creatinine 8.0 H Glucose 184 H POC Glucose 162 H Lactic Acid Calcium ALT Troponin T C-Reactive Protein Albumin Triglycerides HDL Cholesterol Vitamin B12 Folate 07/08/18 07/08/18 07/08/18 05:19 05:19 08:25 WBC RBC Hgb Hct MCV MCH RDW Plt Count Lymph % (Auto) Lymph # Baso # Seg Neutrophils % Seg Neuts % (Manual) Lymphocytes % (Manual) Nucleated RBC % Seg Neutrophils # Seg Neutrophils # Man Lymphocytes # (Manual) Monocytes # (Manual) D-Dimer Heparin Anti-Xa Level Sodium Potassium Chloride Carbon Dioxide BUN Creatinine Glucose POC Glucose 200 H Lactic Acid Calcium ALT Troponin T C-Reactive Protein Albumin Triglycerides HDL Cholesterol Vitamin B12 1416 H Folate 2.39 L 07/08/18 07/08/18 07/08/18 11:48 16:14 21:53 WBC RBC Hgb Hct MCV MCH RDW Plt Count Lymph % (Auto) Lymph # Baso # Seg Neutrophils % Seg Neuts % (Manual) Lymphocytes % (Manual) Nucleated RBC % Seg Neutrophils # Seg Neutrophils # Man Lymphocytes # (Manual) Monocytes # (Manual) D-Dimer Heparin Anti-Xa Level Sodium Potassium Chloride Carbon Dioxide BUN Creatinine Glucose POC Glucose 202 H 176 H 219 H Lactic Acid Calcium ALT Troponin T C-Reactive Protein Albumin Triglycerides HDL Cholesterol Vitamin B12 Folate 07/09/18 07/09/18 07/09/18 07:50 09:51 09:51 WBC 15.8 H RBC Hgb Hct 43.4 H MCV 105 H MCH 34 H RDW Plt Count Lymph % (Auto) Lymph # Baso # Seg Neutrophils % Seg Neuts % (Manual) 94.0 H Lymphocytes % (Manual) 3.0 L Nucleated RBC % 1.0 H Seg Neutrophils # Seg Neutrophils # Man 14.9 H Lymphocytes # (Manual) 0.5 L Monocytes # (Manual) D-Dimer Heparin Anti-Xa Level Sodium 135 L Potassium Chloride 95.5 L Carbon Dioxide BUN 29 H Creatinine 8.4 H Glucose 204 H POC Glucose 163 H Lactic Acid Calcium ALT Troponin T C-Reactive Protein Albumin Triglycerides HDL Cholesterol Vitamin B12 Folate 07/09/18 07/09/18 07/09/18 11:50 18:47 22:16 WBC RBC Hgb Hct MCV MCH RDW Plt Count Lymph % (Auto) Lymph # Baso # Seg Neutrophils % Seg Neuts % (Manual) Lymphocytes % (Manual) Nucleated RBC % Seg Neutrophils # Seg Neutrophils # Man Lymphocytes # (Manual) Monocytes # (Manual) D-Dimer Heparin Anti-Xa Level Sodium Potassium Chloride Carbon Dioxide BUN Creatinine Glucose POC Glucose 156 H 176 H 189 H Lactic Acid Calcium ALT Troponin T C-Reactive Protein Albumin Triglycerides HDL Cholesterol Vitamin B12 Folate 07/10/18 07/10/18 07/10/18 05:35 08:22 08:52 WBC 17.9 H RBC Hgb Hct MCV 105 H MCH 34 H RDW Plt Count Lymph % (Auto) Lymph # Baso # Seg Neutrophils % Seg Neuts % (Manual) 87.0 H Lymphocytes % (Manual) 6.0 L Nucleated RBC % Seg Neutrophils # Seg Neutrophils # Man 15.6 H Lymphocytes # (Manual) 1.1 L Monocytes # (Manual) 1.1 H D-Dimer Heparin Anti-Xa Level Sodium 135 L Potassium Chloride 92.8 L Carbon Dioxide BUN 27 H Creatinine 7.5 H Glucose 175 H POC Glucose 129 H Lactic Acid Calcium ALT Troponin T C-Reactive Protein Albumin Triglycerides HDL Cholesterol Vitamin B12 Folate 07/10/18 07/10/18 07/10/18 11:47 18:22 21:32 WBC RBC Hgb Hct MCV MCH RDW Plt Count Lymph % (Auto) Lymph # Baso # Seg Neutrophils % Seg Neuts % (Manual) Lymphocytes % (Manual) Nucleated RBC % Seg Neutrophils # Seg Neutrophils # Man Lymphocytes # (Manual) Monocytes # (Manual) D-Dimer Heparin Anti-Xa Level Sodium Potassium Chloride Carbon Dioxide BUN Creatinine Glucose POC Glucose 189 H 211 H 306 H Lactic Acid Calcium ALT Troponin T C-Reactive Protein Albumin Triglycerides HDL Cholesterol Vitamin B12 Folate 07/11/18 07/11/18 07/11/18 04:10 07:36 11:49 WBC 19.4 H RBC Hgb Hct MCV 107 H MCH 35 H RDW 15.3 H Plt Count Lymph % (Auto) Lymph # Baso # Seg Neutrophils % Seg Neuts % (Manual) 89.0 H Lymphocytes % (Manual) 4.0 L Nucleated RBC % Seg Neutrophils # Seg Neutrophils # Man 17.3 H Lymphocytes # (Manual) 0.8 L Monocytes # (Manual) D-Dimer Heparin Anti-Xa Level Sodium Potassium Chloride Carbon Dioxide BUN Creatinine Glucose POC Glucose 113 H 123 H Lactic Acid Calcium ALT Troponin T C-Reactive Protein Albumin Triglycerides HDL Cholesterol Vitamin B12 Folate 07/11/18 07/11/18 07/12/18 17:35 23:28 00:48 WBC 17.0 H RBC Hgb Hct MCV 106 H MCH 35 H RDW Plt Count Lymph % (Auto) Lymph # Baso # Seg Neutrophils % Seg Neuts % (Manual) 92.0 H Lymphocytes % (Manual) 3.0 L Nucleated RBC % Seg Neutrophils # Seg Neutrophils # Man 15.6 H Lymphocytes # (Manual) 0.5 L Monocytes # (Manual) 0.9 H D-Dimer Heparin Anti-Xa Level Sodium Potassium Chloride Carbon Dioxide BUN Creatinine Glucose POC Glucose 207 H 188 H Lactic Acid Calcium ALT Troponin T C-Reactive Protein Albumin Triglycerides HDL Cholesterol Vitamin B12 Folate 07/12/18 07/12/18 07/12/18 04:05 09:21 12:05 WBC RBC Hgb Hct MCV MCH RDW Plt Count Lymph % (Auto) Lymph # Baso # Seg Neutrophils % Seg Neuts % (Manual) Lymphocytes % (Manual) Nucleated RBC % Seg Neutrophils # Seg Neutrophils # Man Lymphocytes # (Manual) Monocytes # (Manual) D-Dimer Heparin Anti-Xa Level Sodium Potassium Chloride Carbon Dioxide BUN Creatinine Glucose POC Glucose 147 H 125 H 113 H Lactic Acid Calcium ALT Troponin T C-Reactive Protein Albumin Triglycerides HDL Cholesterol Vitamin B12 Folate 07/12/18 07/13/18 07/13/18 22:25 05:28 05:28 WBC 15.5 H RBC 3.62 L Hgb Hct MCV 105 H MCH 34 H RDW Plt Count Lymph % (Auto) Lymph # Baso # Seg Neutrophils % Seg Neuts % (Manual) 99.0 H Lymphocytes % (Manual) 1.0 L Nucleated RBC % Seg Neutrophils # Seg Neutrophils # Man 15.3 H Lymphocytes # (Manual) 0.2 L Monocytes # (Manual) D-Dimer Heparin Anti-Xa Level Sodium 133 L Potassium Chloride 95.0 L Carbon Dioxide BUN 43 H Creatinine 9.1 H Glucose 124 H POC Glucose 162 H Lactic Acid Calcium 8.0 L ALT Troponin T C-Reactive Protein Albumin Triglycerides HDL Cholesterol Vitamin B12 Folate 07/13/18 07/13/18 07/13/18 07:59 11:40 16:41 WBC RBC Hgb Hct MCV MCH RDW Plt Count Lymph % (Auto) Lymph # Baso # Seg Neutrophils % Seg Neuts % (Manual) Lymphocytes % (Manual) Nucleated RBC % Seg Neutrophils # Seg Neutrophils # Man Lymphocytes # (Manual) Monocytes # (Manual) D-Dimer Heparin Anti-Xa Level Sodium Potassium Chloride Carbon Dioxide BUN Creatinine Glucose POC Glucose 191 H 195 H 204 H Lactic Acid Calcium ALT Troponin T C-Reactive Protein Albumin Triglycerides HDL Cholesterol Vitamin B12 Folate 07/13/18 07/14/18 07/14/18 22:38 04:15 04:15 WBC 13.1 H RBC Hgb Hct MCV 107 H MCH 34 H RDW Plt Count Lymph % (Auto) Lymph # Baso # Seg Neutrophils % Seg Neuts % (Manual) 89.0 H Lymphocytes % (Manual) 6.0 L Nucleated RBC % Seg Neutrophils # Seg Neutrophils # Man 11.7 H Lymphocytes # (Manual) 0.8 L Monocytes # (Manual) D-Dimer Heparin Anti-Xa Level Sodium 136 L Potassium Chloride 95.3 L Carbon Dioxide BUN 40 H Creatinine 8.1 H Glucose POC Glucose 190 H Lactic Acid Calcium ALT Troponin T C-Reactive Protein Albumin Triglycerides HDL Cholesterol Vitamin B12 Folate 07/14/18 07/14/18 07/14/18 07:57 12:18 17:24 WBC RBC Hgb Hct MCV MCH RDW Plt Count Lymph % (Auto) Lymph # Baso # Seg Neutrophils % Seg Neuts % (Manual) Lymphocytes % (Manual) Nucleated RBC % Seg Neutrophils # Seg Neutrophils # Man Lymphocytes # (Manual) Monocytes # (Manual) D-Dimer Heparin Anti-Xa Level Sodium Potassium Chloride Carbon Dioxide BUN Creatinine Glucose POC Glucose 205 H 180 H 249 H Lactic Acid Calcium ALT Troponin T C-Reactive Protein Albumin Triglycerides HDL Cholesterol Vitamin B12 Folate 07/14/18 07/15/18 07/15/18 22:19 06:42 06:42 WBC 11.9 H RBC Hgb Hct MCV 105 H MCH 34 H RDW Plt Count Lymph % (Auto) 6.4 L Lymph # 0.8 L Baso # Seg Neutrophils % 89.6 H Seg Neuts % (Manual) Lymphocytes % (Manual) Nucleated RBC % Seg Neutrophils # 10.6 H Seg Neutrophils # Man Lymphocytes # (Manual) Monocytes # (Manual) D-Dimer Heparin Anti-Xa Level Sodium 131 L Potassium 3.5 L Chloride 94.3 L Carbon Dioxide BUN 36 H Creatinine 7.0 H Glucose 166 H POC Glucose 156 H Lactic Acid Calcium 8.1 L ALT Troponin T C-Reactive Protein Albumin Triglycerides HDL Cholesterol Vitamin B12 Folate 07/15/18 07/15/18 07/15/18 08:12 11:46 15:44 WBC RBC Hgb Hct MCV MCH RDW Plt Count Lymph % (Auto) Lymph # Baso # Seg Neutrophils % Seg Neuts % (Manual) Lymphocytes % (Manual) Nucleated RBC % Seg Neutrophils # Seg Neutrophils # Man Lymphocytes # (Manual) Monocytes # (Manual) D-Dimer Heparin Anti-Xa Level Sodium Potassium Chloride Carbon Dioxide BUN Creatinine Glucose POC Glucose 187 H 201 H 169 H Lactic Acid Calcium ALT Troponin T C-Reactive Protein Albumin Triglycerides HDL Cholesterol Vitamin B12 Folate 07/15/18 07/16/18 07/16/18 23:09 00:22 01:52 WBC RBC Hgb Hct MCV MCH RDW Plt Count Lymph % (Auto) Lymph # Baso # Seg Neutrophils % Seg Neuts % (Manual) Lymphocytes % (Manual) Nucleated RBC % Seg Neutrophils # Seg Neutrophils # Man Lymphocytes # (Manual) Monocytes # (Manual) D-Dimer Heparin Anti-Xa Level Sodium Potassium Chloride Carbon Dioxide BUN Creatinine Glucose 234 H POC Glucose < 40 L 203 H Lactic Acid Calcium ALT Troponin T C-Reactive Protein Albumin Triglycerides HDL Cholesterol Vitamin B12 Folate 07/16/18 07/16/18 07/16/18 04:22 05:12 05:12 WBC 14.0 H RBC 3.58 L Hgb Hct MCV 106 H MCH 34 H RDW Plt Count Lymph % (Auto) Lymph # Baso # Seg Neutrophils % Seg Neuts % (Manual) 92.0 H Lymphocytes % (Manual) 4.0 L Nucleated RBC % Seg Neutrophils # Seg Neutrophils # Man 12.9 H Lymphocytes # (Manual) 0.6 L Monocytes # (Manual) D-Dimer Heparin Anti-Xa Level Sodium 130 L Potassium 2.9 L* Chloride 92.9 L Carbon Dioxide BUN 38 H Creatinine 6.8 H Glucose 194 H POC Glucose 194 H Lactic Acid Calcium ALT Troponin T C-Reactive Protein Albumin Triglycerides HDL Cholesterol Vitamin B12 Folate 07/16/18 07/16/18 07/16/18 08:45 12:22 16:42 WBC RBC Hgb Hct MCV MCH RDW Plt Count Lymph % (Auto) Lymph # Baso # Seg Neutrophils % Seg Neuts % (Manual) Lymphocytes % (Manual) Nucleated RBC % Seg Neutrophils # Seg Neutrophils # Man Lymphocytes # (Manual) Monocytes # (Manual) D-Dimer Heparin Anti-Xa Level Sodium Potassium Chloride Carbon Dioxide BUN Creatinine Glucose POC Glucose 155 H 208 H 143 H Lactic Acid Calcium ALT Troponin T C-Reactive Protein Albumin Triglycerides HDL Cholesterol Vitamin B12 Folate 07/16/18 07/17/18 07/18/18 22:02 04:32 00:56 WBC 13.9 H RBC 3.43 L Hgb Hct MCV 106 H MCH 35 H RDW 15.6 H Plt Count Lymph % (Auto) Lymph # Baso # Seg Neutrophils % Seg Neuts % (Manual) 88.0 H Lymphocytes % (Manual) 2.0 L Nucleated RBC % Seg Neutrophils # Seg Neutrophils # Man 12.2 H Lymphocytes # (Manual) 0.3 L Monocytes # (Manual) D-Dimer Heparin Anti-Xa Level Sodium 131 L Potassium Chloride 93.6 L Carbon Dioxide BUN 45 H Creatinine 7.2 H Glucose POC Glucose 115 H Lactic Acid Calcium ALT Troponin T C-Reactive Protein Albumin Triglycerides HDL Cholesterol Vitamin B12 Folate 07/18/18 07/18/18 07/18/18 04:23 16:08 18:24 WBC RBC Hgb Hct MCV MCH RDW Plt Count Lymph % (Auto) Lymph # Baso # Seg Neutrophils % Seg Neuts % (Manual) Lymphocytes % (Manual) Nucleated RBC % Seg Neutrophils # Seg Neutrophils # Man Lymphocytes # (Manual) Monocytes # (Manual) D-Dimer Heparin Anti-Xa Level Sodium Potassium Chloride Carbon Dioxide BUN 22 H Creatinine 4.9 H Glucose 60 L POC Glucose 62 L 116 H Lactic Acid Calcium 7.5 L ALT Troponin T C-Reactive Protein Albumin Triglycerides HDL Cholesterol Vitamin B12 Folate 07/18/18 07/19/18 07/19/18 21:55 11:15 13:04 WBC 13.3 H RBC 3.40 L Hgb Hct MCV 108 H MCH 34 H RDW 16.1 H Plt Count Lymph % (Auto) Lymph # Baso # Seg Neutrophils % Seg Neuts % (Manual) Lymphocytes % (Manual) Nucleated RBC % Seg Neutrophils # Seg Neutrophils # Man Lymphocytes # (Manual) Monocytes # (Manual) D-Dimer Heparin Anti-Xa Level Sodium Potassium Chloride Carbon Dioxide BUN Creatinine Glucose POC Glucose 114 H 109 H Lactic Acid Calcium ALT Troponin T C-Reactive Protein Albumin Triglycerides HDL Cholesterol Vitamin B12 Folate Allied health notes reviewed: nursing
--- NOTE | 2018-07-19 13:39 | Hem/Onc Progress Note ---
Assessment and Plan 1. Left leg deep venous thrombosis. The patient was on heparin drip. The patient is on peritoneal dialysis. The dose of Eliquis or any direct thrombin inhibitors or other anticoagulation monitoring may become challenging. 2. MCV elevated. We will follow - low folate - on Rx. 3. Elevated D-dimers. - DVT - Rx eliquis 4. History of renal failure,was on peritoneal dialysis. Later HD 5. History of hypertension. She was hypotensive at admission. 6. History of diabetes. 7. I will follow the patient during inpatient stay and then in the clinic setting for anticoagulation management. 8 - fever Issues - Id following - on Abx 07/05 - d/w dr cartagena - pharmacy to help reg NOAC - ? eliquis 2.5 q 12? 07/06 - pharmacy has placed pt on 5 mg q 12 07/08 - pt on eliquis - d/w dr noyola - Placement pending gets PD 07/09 - pt had fever on eliquis for left leg dvt. h/o abdo discomfort - on and off 07/10/2018 DVT - on eliquis c/o abdo discomfort - d/w dr andrade - US abdo elevated MCV - low folate - replace ESRD on PD h/o fever 07/11 US abdo done - report pending Leukocytosis - seen by ID on eliquis 07/13/2018 pt says PD catheter not working US abdo done ID - for Abx eliquis for DVT 07/14 DVT - eliquis WBC high - on Abx MCV elevated - low folate - on Rx on Pd 07/15 dvt - on eliquis h/o anemia - on procrit - folic acid on PD for CKD OP follow up from hem perspective 07/16 HD cath PD cath removal being looked into DVT - on eliquis - reviewed dose for HD 07/17 DVT leg - on eliquis anemia - procrit for HD folic acid 07/18 PD cath infection - removal planned DVT on eliquis has HD cath h/o fever - ID following 07/19 PD cath removed pending OP HD chair DVT leg - on eliquis d/w bozena - Patient Problems (1) DVT (deep venous thrombosis) Current Visit: Yes Status: Acute Qualifiers: DVT location: lower extremity Chronicity: acute Subjective Date of service: 07/19/18 Principal diagnosis: dvt leg Interval history: PD cath removal Objective - Constitutional Vitals: Last Vital Signs Temp 98.0 F 07/19/18 09:35 Pulse 98 H 07/19/18 09:35 Resp 18 07/19/18 10:00 BP 98/40 07/19/18 09:35 Pulse Ox 98 07/19/18 10:00 Pain Intensity (0-10): 1/10 General appearance: no acute distress Performance status: 3-limited selfcare - EENT Eyes: EOM intact ENT: clear oral mucosa Lymph node exam: negative cervical - Neck Neck: normal ROM - Respiratory Respiratory effort: Positive: normal Respiratory: bilateral: diminished - Cardiovascular Heart Sounds: Present: S1 & S2 Extremities: No edema - Gastrointestinal General gastrointestinal: Present: soft Rectal Exam: deferred - Genitourinary Female genitourinary: Present: deferred - Integumentary Integumentary: warm - Musculoskeletal Musculoskeletal: generalized weakness - Neurologic Neurologic: moves all extremities - Labs Lab Results: Laboratory Results - last 24 hr 07/18/18 07/18/18 07/18/18 16:08 18:24 21:55 WBC RBC Hgb Hct MCV MCH MCHC RDW Plt Count POC Glucose 62 L 116 H 114 H 07/19/18 07/19/18 11:15 13:04 WBC 13.3 H RBC 3.40 L Hgb 11.7 Hct 36.8 MCV 108 H MCH 34 H MCHC 32 RDW 16.1 H Plt Count 209 POC Glucose 109 H Medications & Allergies - Medications Allergies/Adverse Reactions: Allergies No Known Allergies Allergy (Verified 08/18/14 08:52) Home Medications: Home Medications Medication Instructions Recorded Confirmed Last Taken Type Calcitriol [Rocaltrol] 0.5 mcg PO QDAY 06/29/18 06/29/18 Unknown History Simvastatin [Zocor] 20 mg PO DAILY 06/29/18 06/29/18 Unknown History Apixaban [Eliquis] 5 mg PO Q12HR tablet 07/15/18 Unknown Rx Aspirin [Aspirin BABY CHEW TAB] 81 mg PO QDAY tab.chew 07/15/18 Unknown Rx AtorvaSTATin [Lipitor] 40 mg PO QHS tablet 07/15/18 Unknown Rx Cefepime/Ns 1 gm/100 ml 1 gm IV Q24HR 21 Days piggyback 07/15/18 Unknown Rx [Maxipime/Ns 1 gm/100 ml] Docusate Sodium [Colace CAP] 100 mg PO BID capsule 07/15/18 Unknown Rx Fludrocortisone [Florinef] 0.1 mg PO QDAY tablet 07/15/18 Unknown Rx Folic Acid [Folvite] 1 mg PO QDAY tablet 07/15/18 Unknown Rx Lactulose [Cephulac] 20 gm PO TID PRN oral.liqd 07/15/18 Unknown Rx Lispro Insulin [Humalog] 0 unit SUB-Q ACHS units 07/15/18 Unknown Rx Midodrine [Proamatine] 10 mg PO TID tablet 07/15/18 Unknown Rx Pantoprazole [Protonix TAB] 40 mg PO QDAY tablet 07/15/18 Unknown Rx Polyethylene Glycol 3350 [Miralax 17 gm PO QDAY powd.pack 07/15/18 Unknown Rx 3350] Sevelamer Carbonate [Renvela] 1,600 mg PO TIDWM tablet 07/15/18 Unknown Rx Active Medications: Generic Name Dose Route Start Last Admin Trade Name Freq PRN Reason Stop Dose Admin Acetaminophen 650 mg 07/15/18 12:55 07/15/18 13:53 Tylenol PO 650 mg Q4H PRN Administration Pain, Mild (1-3) Apixaban 5 mg 07/18/18 22:00 07/19/18 11:08 Eliquis PO 5 mg Q12HR DIANE Administration Protocol Aspirin 81 mg 06/29/18 13:00 07/19/18 11:08 Baby Aspirin PO 81 mg QDAY DIANE Administration Atorvastatin Calcium 40 mg 06/29/18 22:00 07/18/18 21:52 Lipitor PO 40 mg QHS DIANE Administration Calcitriol 0.5 mcg 06/29/18 13:00 07/19/18 11:08 Rocaltrol PO 0.5 mcg QDAY DIANE Administration Docusate Sodium 100 mg 07/02/18 10:00 07/19/18 11:09 Colace PO Not Given BID DIANE Fludrocortisone Acetate 0.1 mg 07/15/18 14:00 07/19/18 11:07 Florinef PO 0.1 mg QDAY DIANE Administration Folic Acid 1 mg 07/10/18 14:00 07/19/18 11:07 Folvite PO 1 mg QDAY DIANE Administration Heparin Sodium (Porcine) 5,000 unit 07/16/18 18:52 Heparin IV THOMAS PRN hemodialysis Sodium Chloride 100 mls @ 999 mls/hr 07/16/18 18:52 Nacl 0.9% IV THOMAS PRN Hypotension Cefepime HCl 1 gm in 100 mls @ 200 mls/hr 07/16/18 22:00 07/18/18 21:52 Maxipime/Ns 1 Gm/100 Ml IV 200 mls/hr QHS DIANE Administration Protocol Vancomycin HCl 1 gm in 250 mls @ 167.007 mls/hr 07/17/18 18:00 07/17/18 17:05 Vancomycin/Ns 1 Gm/250 Ml IV 167.007 mls/hr [id number] DIANE Administration Sodium Chloride 1,000 mls @ 42 mls/hr 07/18/18 14:00 07/18/18 14:10 Nacl 0.9% 1000 Ml IV 42 mls/hr DIRECT DIANE Administration Insulin Human Lispro 0 unit 06/29/18 22:00 07/19/18 11:12 Humalog SUB-Q Not Given ACHS DIANE Protocol Lactulose 20 gm 07/13/18 12:00 Cephulac PO TID PRN Constipation Midodrine 10 mg 07/01/18 14:00 07/19/18 08:32 Proamatine PO Not Given TID DIANE Morphine Sulfate 2 mg 07/08/18 14:51 07/19/18 12:16 Morphine IV 2 mg Q4H PRN Administration Pain, Moderate (4-6) Pantoprazole Sodium 40 mg 07/08/18 10:00 07/19/18 11:07 Protonix PO 40 mg QDAY DIANE Administration Polyethylene Glycol 17 gm 07/02/18 10:00 07/19/18 11:09 Miralax 3350 PO Not Given QDAY DIANE Sevelamer Carbonate 1,600 mg 06/29/18 12:00 07/19/18 12:55 Renvela PO Not Given TIDWM DIANE
[2018-07-19 14:44] LABS: Basophils % (Manual) 0 % (0.0-1.8); Monocytes % (Manual) 0 % (0.0-7.3); Total Cells Counted 100
[2018-07-19 14:45] LABS: Anisocytosis 1+; Large Platelets Few; Platelet Estimate Consistent w Auto
[2018-07-19] MEDS: VANCOMYCIN/NS 1 GM/250 ML 1 GM/250 ML BAG IV SCH (18:22)
[2018-07-19] MEDS: MAXIPIME/NS 1 GM/100 ML 1 GM/100 ML BAG IV SCH (21:49)
[2018-07-20] MEDS: HumaLOG SUB-Q SCH ×5 (00:41→22:42)
--- NOTE | 2018-07-20 08:00 | Progress Note ---
Assessment and Plan Assessment and plan: Patient is a 67-year-old female past medical history of end-stage renal disease on peritoneal dialysis, hypertension hyperlipidemia, diabetes mellitus type 2 on diet control, presented to ER by EMS after having a fall around 9 AM in the morning but she had no loss of consciousness or hit her head. She was sitting on bed and accidentally "slid to ground". She was unable to get up from the bed as she was feeling very weak in her legs. Her family called emergency services to break into her house around 5pm. She was then brought to the ER for further evaluation and management . She noted to have highly elevated d-dimer, elevated white count. In the ED, patient was hypotensive w/ WBC 24.8. CTA chest was unremarkable. V/Q scan was also low prob PE. She denied fever, chills, PD fluid has been clear. She was placed on Levophed, given IV Rocephin and admitted. she was diagnosed with SIRS, hypotension. She improved on Levophed was weaned off. She had swelling of the legs on both ultrasound confirmed a DVT of left lower extremity for which she has been . However patient has failure to thrive, debility, she feels very weak and unable to stand. I discussed with case management she started working on acute rehabilitation placement. The patient developed fever and leukocytosis on 07/08/18. Fever resolved but leukocytosis worsened. Antibiotics restarted and blood cultures thus far negative. ID consulted. Sepsis not present on admission - PD associated peritonitis. - PD fluid cell count noted to be elevated at 6350 . Blood cultures were no growth to date. PD culture grew micrococcus. Patient is currently on cefepime and vancomycin - Abdominal US reveals moderate-sized umbilical hernia present containing adipose tissue. No herniated loops of bowel are seen. - Continue to monitor leukocytosis, improved. PD catheter malfunction - PD removed on 07/18 and grew micrococcus - currently patient is on HD Chronic Hypotension - stable HLD, on statin ESRD on PD, now changed to HD, patient has permcath Nephrology following Diabetes type 2, diet controlled, cont SSRI Elevated troponin/NSTEMI type 2 - Cardiology following - Stress test negative DVT left lower ext. Cont. Eliquis. Disposition; patient was accepted by [facility], but [facility] declined to take her because she has a new HD. Pending O/P HD chair. History Interval history: Patient was seen and evaluated this morning, patient didn't have any complaints. Hospitalist Physical - Physical exam Narrative exam: Not in cardiopulmonary distress. The patient appeared well nourished and normally developed. Vital signs as documented. Head exam is unremarkable. No scleral icterus . Neck is without jugular venous distension, thyromegaly, or carotid bruits. Lungs are clear to auscultation. Cardiac exam reveals regular rate and Rhythm. First and second heart sounds normal. No murmurs, rubs or gallops. Abdominal exam reveals normal bowel sounds, no masses, no organomegaly and no aortic enlargement. Extremities are nonedematous and both femoral and pedal pulses are normal. PERSONAL COUNSELOR: Alert and oriented 3. No focal weakness. - Constitutional Vitals: Temp Pulse Resp BP Pulse Ox 97.2 F L 98 H 20 78/56 97 07/20/18 01:58 07/20/18 01:58 07/20/18 01:58 07/20/18 01:58 07/20/18 01:58 General appearance: Present: no acute distress, well-nourished Results - Labs CBC & Chem 7: 07/19/18 13:04 07/18/18 04:23 Labs: Laboratory Last Values WBC 13.3 K/mm3 (4.5-11.0) H 07/19/18 13:04 RBC 3.40 M/mm3 (3.65-5.03) L 07/19/18 13:04 Hgb 11.7 gm/dl (10.1-14.3) 07/19/18 13:04 Hct 36.8 % (30.3-42.9) 07/19/18 13:04 MCV 108 fl (79-97) H 07/19/18 13:04 MCH 34 pg (28-32) H 07/19/18 13:04 MCHC 32 % (30-34) 07/19/18 13:04 RDW 16.1 % (13.2-15.2) H 07/19/18 13:04 Plt Count 209 K/mm3 (140-440) 07/19/18 13:04 Lymph % (Auto) 6.4 % (13.4-35.0) L 07/15/18 06:42 Fleming % (Auto) 3.4 % (0.0-7.3) 07/15/18 06:42 Eos % (Auto) 0.5 % (0.0-4.3) 07/15/18 06:42 Baso % (Auto) 0.1 % (0.0-1.8) 07/15/18 06:42 Lymph # 0.8 K/mm3 (1.2-5.4) L 07/15/18 06:42 Fleming # 0.4 K/mm3 (0.0-0.8) 07/15/18 06:42 Eos # 0.1 K/mm3 (0.0-0.4) 07/15/18 06:42 Baso # 0.0 K/mm3 (0.0-0.1) 07/15/18 06:42 Add Manual Diff Complete 07/19/18 13:04 Total Counted 100 07/19/18 13:04 Seg Neutrophils % Rickshaw Driver 07/18/18 00:56 Seg Neuts % (Manual) 97.0 % (40.0-70.0) H 07/19/18 13:04 Band Neutrophils % 0 % 07/19/18 13:04 Lymphocytes % (Manual) 1.0 % (13.4-35.0) L 07/19/18 13:04 Reactive Lymphs % (Man) 0 % 07/19/18 13:04 Monocytes % (Manual) 0 % (0.0-7.3) 07/19/18 13:04 Eosinophils % (Manual) 1.0 % (0.0-4.3) 07/19/18 13:04 Basophils % (Manual) 0 % (0.0-1.8) 07/19/18 13:04 Metamyelocytes % 1.0 % 07/19/18 13:04 Myelocytes % 0 % 07/19/18 13:04 Promyelocytes % 0 % 07/19/18 13:04 Blast Cells % 0 % 07/19/18 13:04 Nucleated RBC % Not Reportable 07/19/18 13:04 Seg Neutrophils # 10.6 K/mm3 (1.8-7.7) H 07/15/18 06:42 Seg Neutrophils # Man 12.9 K/mm3 (1.8-7.7) H 07/19/18 13:04 Band Neutrophils # 0.0 K/mm3 07/19/18 13:04 Lymphocytes # (Manual) 0.1 K/mm3 (1.2-5.4) L 07/19/18 13:04 Abs React Lymphs (Man) 0.0 K/mm3 07/19/18 13:04 Monocytes # (Manual) 0.0 K/mm3 (0.0-0.8) 07/19/18 13:04 Eosinophils # (Manual) 0.1 K/mm3 (0.0-0.4) 07/19/18 13:04 Basophils # (Manual) 0.0 K/mm3 (0.0-0.1) 07/19/18 13:04 Metamyelocytes # 0.1 K/mm3 07/19/18 13:04 Myelocytes # 0.0 K/mm3 07/19/18 13:04 Promyelocytes # 0.0 K/mm3 07/19/18 13:04 Blast Cells # 0.0 K/mm3 07/19/18 13:04 WBC Morphology Not Reportable 07/19/18 13:04 Hypersegmented Neuts Not Reportable 07/19/18 13:04 Hyposegmented Neuts Not Reportable 07/19/18 13:04 Hypogranular Neuts Not Reportable 07/19/18 13:04 Smudge Cells Not Reportable 07/19/18 13:04 Toxic Granulation Not Reportable 07/19/18 13:04 Toxic Vacuolation Not Reportable 07/19/18 13:04 Dohle Bodies Not Reportable 07/19/18 13:04 Pelger-Huet Anomaly Not Reportable 07/19/18 13:04 Nomi Rods Not Reportable 07/19/18 13:04 Platelet Estimate Consistent w auto 07/19/18 13:04 Clumped Platelets Not Reportable 07/19/18 13:04 Plt Clumps, EDTA Not Reportable 07/19/18 13:04 Large Platelets Few 07/19/18 13:04 Giant Platelets Not Reportable 07/19/18 13:04 Platelet Satelliting Not Reportable 07/19/18 13:04 Plt Morphology Comment Not Reportable 07/19/18 13:04 RBC Morphology Not Reportable 07/19/18 13:04 Dimorphic RBCs Not Reportable 07/19/18 13:04 Polychromasia Not Reportable 07/19/18 13:04 Hypochromasia Not Reportable 07/19/18 13:04 Poikilocytosis Not Reportable 07/19/18 13:04 Anisocytosis 1+ 07/19/18 13:04 Microcytosis Not Reportable 07/19/18 13:04 Macrocytosis Not Reportable 07/19/18 13:04 Spherocytes Not Reportable 07/19/18 13:04 Pappenheimer Bodies Not Reportable 07/19/18 13:04 Sickle Cells Not Reportable 07/19/18 13:04 Target Cells Not Reportable 07/19/18 13:04 Tear Drop Cells Not Reportable 07/19/18 13:04 Ovalocytes Not Reportable 07/19/18 13:04 Helmet Cells Not Reportable 07/19/18 13:04 [place] Bodies Not Reportable 07/19/18 13:04 Lagrange Rings Not Reportable 07/19/18 13:04 Jenera Cells Not Reportable 07/19/18 13:04 Bite Cells Not Reportable 07/19/18 13:04 Crenated Cell Not Reportable 07/19/18 13:04 Elliptocytes Not Reportable 07/19/18 13:04 Acanthocytes (Spur) Not Reportable 07/19/18 13:04 Rouleaux Not Reportable 07/19/18 13:04 Hemoglobin C Crystals Not Reportable 07/19/18 13:04 Schistocytes Not Reportable 07/19/18 13:04 Malaria parasites Not Reportable 07/19/18 13:04 Navneet Bodies Not Reportable 07/19/18 13:04 Hem Pathologist Commnt No 07/19/18 13:04 PT 13.6 Sec. (12.2-14.9) 07/03/18 12:39 INR 0.98 (0.87-1.13) 07/03/18 12:39 APTT 34.1 Sec. (24.2-36.6) 07/03/18 12:39 D-Dimer > 62134 ng/mlDDU (0-234) H 06/28/18 22:26 Heparin Anti-Xa Level 1.70 U.I./ml (0.3-0.7) H 07/04/18 14:59 Sodium 137 mmol/L (137-145) 07/18/18 04:23 Potassium 4.2 mmol/L (3.6-5.0) 07/18/18 04:23 Chloride 99.4 mmol/L (98-107) 07/18/18 04:23 Carbon Dioxide 23 mmol/L (22-30) 07/18/18 04:23 Anion Gap 19 mmol/L 07/18/18 04:23 BUN 22 mg/dL (7-17) H 07/18/18 04:23 Creatinine 4.9 mg/dL (0.7-1.2) H 07/18/18 04:23 Estimated GFR 11 ml/min 07/18/18 04:23 BUN/Creatinine Ratio 4 % 07/18/18 04:23 Glucose 60 mg/dL (65-100) L 07/18/18 04:23 POC Glucose 132 (70-105) H 07/19/18 23:41 Lactic Acid 2.20 mmol/L (0.7-2.0) H* 07/02/18 05:22 Calcium 7.5 mg/dL (8.4-10.2) L 07/18/18 04:23 Total Bilirubin 0.40 mg/dL (0.1-1.2) 06/28/18 20:54 AST 25 units/L (5-40) 06/28/18 20:54 ALT 5 units/L (7-56) L 06/28/18 20:54 Alkaline Phosphatase 88 units/L (35-129) 06/28/18 20:54 Total Creatine Kinase 118 units/L (30-135) 06/29/18 20:37 Troponin T 0.077 ng/mL (0.00-0.029) H 06/29/18 20:37 C-Reactive Protein 7.40 mg/dL (0.00-1.30) H 07/01/18 13:32 Total Protein 7.4 g/dL (6.3-8.2) 06/28/18 20:54 Albumin 3.2 g/dL (3.9-5) L 06/28/18 20:54 Albumin/Globulin Ratio 0.8 % 06/28/18 20:54 Triglycerides 194 mg/dL (2-149) H 06/28/18 10:38 Cholesterol 167 mg/dL (50-199) 06/28/18 10:38 LDL Cholesterol Direct 61 mg/dL (50-130) 06/28/18 10:38 HDL Cholesterol 68 mg/dL (40-59) H 06/28/18 10:38 Cholesterol/HDL Ratio 2.45 % 06/28/18 10:38 Vitamin B12 1416 pg/mL (211-911) H 07/08/18 05:19 Folate 2.39 ng/mL (7.3-26.0) L 07/08/18 05:19 Fluid Type Peritoneal 07/14/18 14:48 Fluid Color Straw 07/14/18 14:48 Fluid Appearance Cloudy 07/14/18 14:48 Fluid WBC 2700 /mm3 07/14/18 14:48 Fluid RBC 39 /mm3 07/14/18 14:48 Fluid Seg Neutrophils 96.0 % 07/14/18 14:48 Fluid Lymphocytes 3.0 % 07/14/18 14:48 Fluid Reactive Lymphs 0 % 07/14/18 14:48 Fluid Monocytes 1.0 % 07/14/18 14:48 Fluid Eosinophils 0 % 07/14/18 14:48 Fluid Basophils 0 % 07/14/18 14:48 Random Vancomycin 19 ug/mL (0-40.0) 07/16/18 05:12 Active Medications - Current Medications Current Medications: Generic Name Dose Route Start Last Admin Trade Name Freq PRN Reason Stop Dose Admin Acetaminophen 650 mg 07/15/18 12:55 07/15/18 13:53 Tylenol PO 650 mg Q4H PRN Administration Pain, Mild (1-3) Apixaban 5 mg 07/18/18 22:00 07/19/18 21:50 Eliquis PO 5 mg Q12HR DIANE Administration Protocol Aspirin 81 mg 06/29/18 13:00 07/19/18 11:08 Baby Aspirin PO 81 mg QDAY DIANE Administration Atorvastatin Calcium 40 mg 06/29/18 22:00 07/19/18 21:50 Lipitor PO 40 mg QHS DIANE Administration Calcitriol 0.5 mcg 06/29/18 13:00 07/19/18 11:08 Rocaltrol PO 0.5 mcg QDAY DIANE Administration Docusate Sodium 100 mg 07/02/18 10:00 07/19/18 21:50 Colace PO 100 mg BID DIANE Administration Fludrocortisone Acetate 0.1 mg 07/15/18 14:00 07/19/18 11:07 Florinef PO 0.1 mg QDAY DIANE Administration Folic Acid 1 mg 07/10/18 14:00 07/19/18 11:07 Folvite PO 1 mg QDAY DIANE Administration Heparin Sodium (Porcine) 5,000 unit 07/16/18 18:52 Heparin IV THOMAS PRN hemodialysis Sodium Chloride 100 mls @ 999 mls/hr 07/16/18 18:52 Nacl 0.9% IV THOMAS PRN Hypotension Cefepime HCl 1 gm in 100 mls @ 200 mls/hr 07/16/18 22:00 07/19/18 21:49 Maxipime/Ns 1 Gm/100 Ml IV 200 mls/hr QHS DIANE Administration Protocol Vancomycin HCl 1 gm in 250 mls @ 167.007 mls/hr 07/17/18 18:00 07/19/18 18:22 Vancomycin/Ns 1 Gm/250 Ml IV 167.007 mls/hr [id number] DIANE Administration Sodium Chloride 1,000 mls @ 42 mls/hr 07/18/18 14:00 07/18/18 14:10 Nacl 0.9% 1000 Ml IV 42 mls/hr DIRECT DIANE Administration Insulin Human Lispro 0 unit 06/29/18 22:00 07/20/18 00:41 Humalog SUB-Q Not Given ACHS [facility] Protocol Lactulose 20 gm 07/13/18 12:00 Cephulac PO TID PRN Constipation Midodrine 10 mg 07/01/18 14:00 07/19/18 21:49 Proamatine PO 10 mg TID DIANE Administration Morphine Sulfate 2 mg 07/08/18 14:51 07/19/18 21:50 Morphine IV 2 mg Q4H PRN Administration Pain, Moderate (4-6) Pantoprazole Sodium 40 mg 07/08/18 10:00 07/19/18 11:07 Protonix PO 40 mg QDAY DIANE Administration Polyethylene Glycol 17 gm 07/02/18 10:00 07/19/18 11:09 Miralax 3350 PO Not Given QDAY DIANE Sevelamer Carbonate 1,600 mg 06/29/18 12:00 07/19/18 18:23 Renvela PO 1,600 mg TIDWM DIANE Administration Nutrition/Malnutrition Assess - Dietary Evaluation Nutrition/Malnutrition Findings: Nutrition Notes Start: 07/05/18 14:49 Freq: Status: Active Protocol: Document 07/18/18 14:21 RM (Rec: 07/18/18 14:24 RM [id number]) Nutrition Notes Initial or Follow up Reassessment Current Diagnosis Diabetes,Hypertension Other Pertinent Diagnosis ESRD on PD, Possible sepsis Current Diet NPO Labs/Tests Reviewed Pertinent Medications Reviewed Height 5 ft 6 in Weight 102.5 kg Vass Body Weight (kg) 59.09 BMI 36.4 Subjective/Other Information Pt asleep at time of visit. Per tech pt sipped Nepro last week but is unsure how pt has was eating before NPO status. Burn Absent Trauma Absent #1 Nutrition Diagnosis Inadequate oral intake Diagnosis Progress(for reassessment Continues documentation) Is patient on ventilator? No Is Patient Ambulatory and/or Out of Bed Yes REE-([place]-St. Jeor-ambulatory/OOB) [ 2030.275 [id number]] Kcal/Kg value to use for calculation 17 Approximate Energy Requirements Using 1743 kcal/Kg Calculation Used for Recommendations Kcal/kg Additional Notes Protein Needs: 92-100g (1.2-1. 3g/kg, 77kg adjBW) Fluid Needs: 1 ml/kcal Nutrition Intervention Change Diet Order: Continue current Add Supplement/Snack (indicate name/kcal Nepro 1 daily once diet /protein ) advance Provides kCal: 425 Provides Protein (gm) 19 Goal #1 Diet advancement Anticipated Discharge Needs: Renal diet Follow-Up By: 07/22/18 Additional Comments Follow for PO and ONS intake
[2018-07-20] MEDS: PROAMATINE PO SCH ×3 (09:09→21:03)
[2018-07-20] MEDS: ROCALTROL PO SCH (09:09)
[2018-07-20] MEDS: FOLVITE PO SCH (09:10)
[2018-07-20] MEDS: RENVELA PO SCH ×3 (09:10→18:33)
[2018-07-20] MEDS: COLACE PO SCH ×2 (09:10→21:03)
[2018-07-20] MEDS: ELIQUIS PO SCH ×2 (09:10→21:03)
[2018-07-20] MEDS: BABY ASPIRIN PO SCH (09:10)
[2018-07-20] MEDS: FLORINEF PO SCH (09:10)
[2018-07-20] MEDS: PROTONIX PO SCH (09:10)
[2018-07-20] MEDS: MIRALAX 3350 PO SCH (09:11)
--- NOTE | 2018-07-20 11:00 | Progress Note ---
Subjective Principal diagnosis: dvt leg Interval history: Patient was seen today for follow-up on multiple renal related issues Events of this hospitalization noted She has been placed on hemodialysis changed from PD Patient denies having any chest pain pressure or shortness of breath Vitals labs intake output medications were reviewed Social history: Reviewed Allergies: Reviewed Family history: Reviewed Physical examination HEENT: Oral mucosa moist no pallor or icterus Neck: Supple no JVD Chest: Clear to auscultation anteriorly CVS: Regular rate and rhythm S1 and S2 heard Abdomen: Soft nontender no suprapubic masses no organomegaly appreciable Extremity: Dry skin less than 1+ peripheral edema Musculoskeletal: No joint effusion noted in knees and ankle Neurological: Alert awake Dermatology: No petechial rashes Psychiatry: No evidence of any agitation and aggression noted Assessment and plan End-stage renal disease: Patient will need to continue with hemodialysis treatment on Sunday and Sunday schedule Patient is currently status post permacath placement From the dialysis standpoint last potassium was 4.2 BUN 22 creatinine 4.9 calcium 7.5 hemoglobin 11.7 platelet count 209,000 Peritonitis due to Micrococcus catheter related status post PD catheter removal Hypokalemia likely due to peritoneal dialysis status patient has been switched to hemodialysis Replace and follow-up on the potassium if required Abnormal troponin with normal ejection fraction 55% likely due to end-stage daniel l disease status patient will need to follow-up with cardiology Blood pressure appears to be somewhat low 95/57 patient is currently on midodrine as well as the fludrocortisone Patient in my opinion will need to be empirically tried on prednisone 10 mg once a day, to make sure there is no underlying renal insufficiency will also check cortisol level in the meantime Patient was adequately counseled and educated regarding multiple renal related issues Pertinent lab findings were discussed with patient, patient does exhibit good understanding of renal issues We'll continue to follow and make recommendation from renal standpoint Objective - Vital Signs Vital signs: Vital Signs - 12hr 07/19/18 07/20/18 07/20/18 23:55 01:47 01:58 Temperature 99.2 F 98.6 F 97.2 F L Pulse Rate 110 H 99 H 98 H Respiratory 22 20 Rate Blood Pressure 78/41 81/46 78/56 O2 Sat by Pulse 87 100 97 Oximetry 07/20/18 07:14 Temperature 97.6 F Pulse Rate 103 H Respiratory 20 Rate Blood Pressure 95/57 O2 Sat by Pulse 97 Oximetry - Lab 07/19/18 13:04 07/18/18 04:23 Most recent lab results Calcium 7.5 mg/dL (8.4-10.2) L 07/18/18 04:23 Medications & Allergies - Medications Allergies/Adverse Reactions: Allergies No Known Allergies Allergy (Verified 08/18/14 08:52) Home Medications: Home Medications Medication Instructions Recorded Confirmed Last Taken Type Calcitriol [Rocaltrol] 0.5 mcg PO QDAY 06/29/18 06/29/18 Unknown History Simvastatin [Zocor] 20 mg PO DAILY 06/29/18 06/29/18 Unknown History Apixaban [Eliquis] 5 mg PO Q12HR tablet 07/15/18 Unknown Rx Aspirin [Aspirin BABY CHEW TAB] 81 mg PO QDAY tab.chew 07/15/18 Unknown Rx AtorvaSTATin [Lipitor] 40 mg PO QHS tablet 07/15/18 Unknown Rx Cefepime/Ns 1 gm/100 ml 1 gm IV Q24HR 21 Days piggyback 07/15/18 Unknown Rx [Maxipime/Ns 1 gm/100 ml] Docusate Sodium [Colace CAP] 100 mg PO BID capsule 07/15/18 Unknown Rx Fludrocortisone [Florinef] 0.1 mg PO QDAY tablet 07/15/18 Unknown Rx Folic Acid [Folvite] 1 mg PO QDAY tablet 07/15/18 Unknown Rx Lactulose [Cephulac] 20 gm PO TID PRN oral.liqd 07/15/18 Unknown Rx Lispro Insulin [Humalog] 0 unit SUB-Q ACHS units 07/15/18 Unknown Rx Midodrine [Proamatine] 10 mg PO TID tablet 07/15/18 Unknown Rx Pantoprazole [Protonix TAB] 40 mg PO QDAY tablet 07/15/18 Unknown Rx Polyethylene Glycol 3350 [Miralax 17 gm PO QDAY powd.pack 07/15/18 Unknown Rx 3350] Sevelamer Carbonate [Renvela] 1,600 mg PO TIDWM tablet 07/15/18 Unknown Rx Active Medications: Generic Name Dose Route Start Last Admin Trade Name Freq PRN Reason Stop Dose Admin Acetaminophen 650 mg 07/15/18 12:55 07/15/18 13:53 Tylenol PO 650 mg Q4H PRN Administration Pain, Mild (1-3) Apixaban 5 mg 07/18/18 22:00 07/20/18 09:10 Eliquis PO 5 mg Q12HR DIANE Administration Protocol Aspirin 81 mg 06/29/18 13:00 07/20/18 09:10 Baby Aspirin PO 81 mg QDAY DIANE Administration Atorvastatin Calcium 40 mg 06/29/18 22:00 07/19/18 21:50 Lipitor PO 40 mg QHS DIAEN Administration Calcitriol 0.5 mcg 06/29/18 13:00 07/20/18 09:09 Rocaltrol PO 0.5 mcg QDAY DIANE Administration Docusate Sodium 100 mg 07/02/18 10:00 07/20/18 09:10 Colace PO 100 mg BID DIANE Administration Fludrocortisone Acetate 0.1 mg 07/15/18 14:00 07/20/18 09:10 Florinef PO 0.1 mg QDAY DIANE Administration Folic Acid 1 mg 07/10/18 14:00 07/20/18 09:10 Folvite PO 1 mg QDAY DIANE Administration Heparin Sodium (Porcine) 5,000 unit 07/16/18 18:52 Heparin IV THOMAS PRN hemodialysis Hydrocortisone Acetate 20 mg 07/21/18 10:00 Cortef PO QDAY DIANE Sodium Chloride 100 mls @ 999 mls/hr 07/16/18 18:52 Nacl 0.9% IV THOMAS PRN Hypotension Cefepime HCl 1 gm in 100 mls @ 200 mls/hr 07/16/18 22:00 07/19/18 21:49 Maxipime/Ns 1 Gm/100 Ml IV 08/01/18 23:59 200 mls/hr QHS DIANE Administration Protocol Vancomycin HCl 1 gm in 250 mls @ 167.007 mls/hr 07/17/18 18:00 07/19/18 18:22 Vancomycin/Ns 1 Gm/250 Ml IV 08/01/18 23:59 167.007 mls/hr [id number] DIANE Administration Sodium Chloride 1,000 mls @ 42 mls/hr 07/18/18 14:00 07/18/18 14:10 Nacl 0.9% 1000 Ml IV 42 mls/hr DIRECT DIANE Administration Insulin Human Lispro 0 unit 06/29/18 22:00 07/20/18 09:10 Humalog SUB-Q Not Given ACHS DIANE Protocol Lactulose 20 gm 07/13/18 12:00 Cephulac PO TID PRN Constipation Midodrine 10 mg 07/01/18 14:00 07/20/18 09:09 Proamatine PO 10 mg TID DIANE Administration Morphine Sulfate 2 mg 07/08/18 14:51 07/19/18 21:50 Morphine IV 2 mg Q4H PRN Administration Pain, Moderate (4-6) Pantoprazole Sodium 40 mg 07/08/18 10:00 07/20/18 09:10 Protonix PO 40 mg QDAY DIANE Administration Polyethylene Glycol 17 gm 07/02/18 10:00 07/20/18 09:11 Miralax 3350 PO 17 gm QDAY DIANE Administration Sevelamer Carbonate 1,600 mg 06/29/18 12:00 07/20/18 09:10 Renvela PO 1,600 mg TIDWM DIANE Administration
[2018-07-20] MEDS: CORTEF PO SCH (14:01)
--- NOTE | 2018-07-20 14:33 | Progress Note ---
Assessment and Plan Severe sepsis with septic shock HLD ESRD on PD Diabetes Elevated troponin/NSTEMI type 2 LLExt DVT Abdominal pain -Bowel regimen, serial abdominal exams - Nephrology for peritoneal dialysis - No infiltrates noted on CTA chest/chest x-ray/VQ scan -Increase activity -On midodrine for blood pressure support -De-escalate antibiotics based on cultures -Continue anticoagulation with Eliquis, monitor for bleeding complications -Influenza and pneumonia vaccination per protocol prior to discharge -Continue all supportive care Continue to monitor closely Subjective Date of service: 07/20/18 Principal diagnosis: dvt leg Interval history: Patient is seen today for: Septic Shock (etiology unclear) with lactic acidosis and hypotension; Hyperlipidemia; ESRD on PD; Diabetes type 2; Elevated troponin/NSTEMI type 2 Seen and examined at bedside; 24hour events reviewed; nursing and respiratory care staff consulted; no adverse overnight events reported to me; resting peacefully in bed; looks and feels better; denies acute chest pains or palpitations; No N/V/F/C; has some lower abdominal pain, episode of fecal incontinence this morning( received a dose of lactulose- possible overflow diarrhea), states she does not have an appetite this morning. Objective Vital Signs - 12hr 07/20/18 07/20/18 07:14 10:00 Temperature 97.6 F Pulse Rate 103 H Pulse Rate [ 103 H From Monitor] Respiratory 20 18 Rate Blood Pressure 95/57 O2 Sat by Pulse 97 100 Oximetry Constitutional: no acute distress, alert Eyes: non-icteric ENT: oropharynx moist, other (mallampati 3) Neck: supple, no lymphadenopathy, no JVD, other (large neck circumference) Effort: normal Ascultation: Bilateral: diminished breath sounds, rhonchi (scant in bases) Percussion: Bilateral: not dull Cardiovascular: regular rate and rhythm, other (No R/M) Gastrointestinal: normoactive bowel sounds, soft, non-distended, other (No HSM, PD cathetr, clean dry site, mild lower abdominal tenderness, no rebound) Integumentary: normal Extremities: no cyanosis, no edema, pulses normal, no ischemia or petechiae Neurologic: normal mental status, non-focal exam (grossly), pupils equal and round, motor strength normal and Psychiatric: mood appropriate, affect normal CBC and BMP: 07/19/18 13:04 07/18/18 04:23 ABG, PT/INR, D-dimer: PT/INR, D-dimer PT 13.6 Sec. (12.2-14.9) 07/03/18 12:39 INR 0.98 (0.87-1.13) 07/03/18 12:39 D-Dimer > 46467 ng/mlDDU (0-234) H 06/28/18 22:26 Abnormal lab findings: Abnormal Labs 06/28/18 06/28/18 06/28/18 10:38 20:54 20:54 WBC 24.8 H RBC Hgb 16.6 H Hct 50.3 H MCV 107 H MCH 35 H RDW 15.6 H Plt Count Lymph % (Auto) Lymph # Baso # Seg Neutrophils % Seg Neuts % (Manual) 95.0 H Lymphocytes % (Manual) 3.0 L Nucleated RBC % Seg Neutrophils # Seg Neutrophils # Man 23.6 H Lymphocytes # (Manual) 0.7 L Monocytes # (Manual) D-Dimer Heparin Anti-Xa Level Sodium 131 L Potassium Chloride 89.6 L Carbon Dioxide 19 L BUN 29 H Creatinine 9.3 H Glucose 174 H POC Glucose Lactic Acid Calcium ALT 5 L Troponin T 0.073 H C-Reactive Protein Albumin 3.2 L Triglycerides 194 H HDL Cholesterol 68 H Vitamin B12 Folate 06/28/18 06/29/18 06/29/18 22:26 12:18 13:30 WBC RBC Hgb Hct MCV MCH RDW Plt Count Lymph % (Auto) Lymph # Baso # Seg Neutrophils % Seg Neuts % (Manual) Lymphocytes % (Manual) Nucleated RBC % Seg Neutrophils # Seg Neutrophils # Man Lymphocytes # (Manual) Monocytes # (Manual) D-Dimer > 39312 H Heparin Anti-Xa Level Sodium Potassium Chloride Carbon Dioxide BUN Creatinine Glucose POC Glucose 168 H Lactic Acid Calcium ALT Troponin T 0.073 H C-Reactive Protein Albumin Triglycerides HDL Cholesterol Vitamin B12 Folate 06/29/18 06/29/18 06/29/18 13:30 14:11 16:36 WBC 19.8 H RBC Hgb 14.7 H Hct 45.4 H MCV 108 H MCH 35 H RDW 15.9 H Plt Count Lymph % (Auto) Lymph # Baso # Seg Neutrophils % Seg Neuts % (Manual) Lymphocytes % (Manual) Nucleated RBC % Seg Neutrophils # Seg Neutrophils # Man Lymphocytes # (Manual) Monocytes # (Manual) D-Dimer Heparin Anti-Xa Level Sodium 133 L Potassium Chloride 91.7 L Carbon Dioxide 20 L BUN 33 H Creatinine 9.9 H Glucose 196 H POC Glucose 165 H Lactic Acid Calcium ALT Troponin T C-Reactive Protein Albumin Triglycerides HDL Cholesterol Vitamin B12 Folate 06/29/18 06/29/18 06/30/18 20:37 22:01 04:49 WBC 14.8 H RBC Hgb Hct MCV 106 H MCH 35 H RDW 15.5 H Plt Count Lymph % (Auto) Lymph # Baso # Seg Neutrophils % Seg Neuts % (Manual) 90.0 H Lymphocytes % (Manual) 5.0 L Nucleated RBC % Seg Neutrophils # Seg Neutrophils # Man 13.3 H Lymphocytes # (Manual) 0.7 L Monocytes # (Manual) D-Dimer Heparin Anti-Xa Level Sodium Potassium Chloride Carbon Dioxide BUN Creatinine Glucose POC Glucose 202 H Lactic Acid Calcium ALT Troponin T 0.077 H C-Reactive Protein Albumin Triglycerides HDL Cholesterol Vitamin B12 Folate 06/30/18 06/30/18 06/30/18 04:49 08:27 12:17 WBC RBC Hgb Hct MCV MCH RDW Plt Count Lymph % (Auto) Lymph # Baso # Seg Neutrophils % Seg Neuts % (Manual) Lymphocytes % (Manual) Nucleated RBC % Seg Neutrophils # Seg Neutrophils # Man Lymphocytes # (Manual) Monocytes # (Manual) D-Dimer Heparin Anti-Xa Level Sodium 134 L Potassium 3.5 L Chloride 94.7 L Carbon Dioxide BUN 30 H Creatinine 8.8 H Glucose 182 H POC Glucose 170 H 145 H Lactic Acid Calcium 7.9 L ALT Troponin T C-Reactive Protein Albumin Triglycerides HDL Cholesterol Vitamin B12 Folate 06/30/18 06/30/18 07/01/18 16:44 22:06 07:21 WBC 11.8 H RBC 3.32 L Hgb Hct MCV 105 H MCH 35 H RDW 15.5 H Plt Count 125 L Lymph % (Auto) Lymph # Baso # Seg Neutrophils % Seg Neuts % (Manual) Lymphocytes % (Manual) Nucleated RBC % Seg Neutrophils # Seg Neutrophils # Man Lymphocytes # (Manual) Monocytes # (Manual) D-Dimer Heparin Anti-Xa Level Sodium Potassium Chloride Carbon Dioxide BUN Creatinine Glucose POC Glucose 155 H 174 H Lactic Acid Calcium ALT Troponin T C-Reactive Protein Albumin Triglycerides HDL Cholesterol Vitamin B12 Folate 07/01/18 07/01/18 07/01/18 07:21 08:22 11:38 WBC RBC Hgb Hct MCV MCH RDW Plt Count Lymph % (Auto) Lymph # Baso # Seg Neutrophils % Seg Neuts % (Manual) Lymphocytes % (Manual) Nucleated RBC % Seg Neutrophils # Seg Neutrophils # Man Lymphocytes # (Manual) Monocytes # (Manual) D-Dimer Heparin Anti-Xa Level Sodium 134 L Potassium Chloride 95.9 L Carbon Dioxide BUN 31 H Creatinine 8.4 H Glucose 151 H POC Glucose 117 H 166 H Lactic Acid Calcium 7.8 L ALT Troponin T C-Reactive Protein Albumin Triglycerides HDL Cholesterol Vitamin B12 Folate 07/01/18 07/01/18 07/01/18 13:32 13:32 16:27 WBC RBC Hgb Hct MCV MCH RDW Plt Count Lymph % (Auto) Lymph # Baso # Seg Neutrophils % Seg Neuts % (Manual) Lymphocytes % (Manual) Nucleated RBC % Seg Neutrophils # Seg Neutrophils # Man Lymphocytes # (Manual) Monocytes # (Manual) D-Dimer Heparin Anti-Xa Level Sodium Potassium Chloride Carbon Dioxide BUN Creatinine Glucose POC Glucose 149 H Lactic Acid 2.20 H* Calcium ALT Troponin T C-Reactive Protein 7.40 H Albumin Triglycerides HDL Cholesterol Vitamin B12 Folate 07/01/18 07/01/18 07/02/18 19:35 21:36 05:22 WBC RBC Hgb Hct MCV MCH RDW Plt Count Lymph % (Auto) Lymph # Baso # Seg Neutrophils % Seg Neuts % (Manual) Lymphocytes % (Manual) Nucleated RBC % Seg Neutrophils # Seg Neutrophils # Man Lymphocytes # (Manual) Monocytes # (Manual) D-Dimer Heparin Anti-Xa Level Sodium Potassium Chloride Carbon Dioxide BUN Creatinine Glucose POC Glucose 129 H Lactic Acid 2.60 H* 2.20 H* Calcium ALT Troponin T C-Reactive Protein Albumin Triglycerides HDL Cholesterol Vitamin B12 Folate 07/02/18 07/02/18 07/02/18 05:22 05:22 07:11 WBC 12.6 H RBC 3.51 L Hgb Hct MCV 105 H MCH 35 H RDW Plt Count 132 L Lymph % (Auto) Lymph # Baso # Seg Neutrophils % Seg Neuts % (Manual) 92.0 H Lymphocytes % (Manual) 2.0 L Nucleated RBC % Seg Neutrophils # Seg Neutrophils # Man 11.6 H Lymphocytes # (Manual) 0.3 L Monocytes # (Manual) D-Dimer Heparin Anti-Xa Level Sodium 131 L Potassium 3.3 L Chloride 93.1 L Carbon Dioxide BUN 31 H Creatinine 7.5 H Glucose 228 H POC Glucose 215 H Lactic Acid Calcium 7.7 L ALT Troponin T C-Reactive Protein Albumin Triglycerides HDL Cholesterol Vitamin B12 Folate 07/02/18 07/02/18 07/03/18 15:35 21:56 10:56 WBC RBC Hgb Hct MCV MCH RDW Plt Count Lymph % (Auto) Lymph # Baso # Seg Neutrophils % Seg Neuts % (Manual) Lymphocytes % (Manual) Nucleated RBC % Seg Neutrophils # Seg Neutrophils # Man Lymphocytes # (Manual) Monocytes # (Manual) D-Dimer Heparin Anti-Xa Level Sodium 130 L Potassium Chloride 91.6 L Carbon Dioxide BUN 33 H Creatinine 7.8 H Glucose POC Glucose 123 H 135 H Lactic Acid Calcium 7.7 L ALT Troponin T C-Reactive Protein Albumin Triglycerides HDL Cholesterol Vitamin B12 Folate 07/03/18 07/03/18 07/03/18 11:00 21:03 22:06 WBC 11.9 H RBC 3.59 L Hgb Hct MCV 103 H MCH 35 H RDW Plt Count Lymph % (Auto) Lymph # Baso # Seg Neutrophils % Seg Neuts % (Manual) 94.0 H Lymphocytes % (Manual) 5.0 L Nucleated RBC % Seg Neutrophils # Seg Neutrophils # Man 11.2 H Lymphocytes # (Manual) 0.6 L Monocytes # (Manual) D-Dimer Heparin Anti-Xa Level 0.28 L Sodium Potassium Chloride Carbon Dioxide BUN Creatinine Glucose POC Glucose 177 H Lactic Acid Calcium ALT Troponin T C-Reactive Protein Albumin Triglycerides HDL Cholesterol Vitamin B12 Folate 07/04/18 07/04/18 07/04/18 01:08 05:22 05:22 WBC 13.1 H RBC Hgb Hct MCV 104 H MCH 35 H RDW Plt Count 139 L Lymph % (Auto) 5.0 L Lymph # 0.7 L Baso # 0.2 H Seg Neutrophils % 87.7 H Seg Neuts % (Manual) Lymphocytes % (Manual) Nucleated RBC % Seg Neutrophils # 11.5 H Seg Neutrophils # Man Lymphocytes # (Manual) Monocytes # (Manual) D-Dimer Heparin Anti-Xa Level Sodium 132 L Potassium 3.1 L Chloride 92.4 L Carbon Dioxide BUN 30 H Creatinine 7.4 H Glucose 113 H POC Glucose 106 H Lactic Acid Calcium 7.8 L ALT Troponin T C-Reactive Protein Albumin Triglycerides HDL Cholesterol Vitamin B12 Folate 07/04/18 07/04/18 07/04/18 05:22 12:15 14:59 WBC RBC Hgb Hct MCV MCH RDW Plt Count Lymph % (Auto) Lymph # Baso # Seg Neutrophils % Seg Neuts % (Manual) Lymphocytes % (Manual) Nucleated RBC % Seg Neutrophils # Seg Neutrophils # Man Lymphocytes # (Manual) Monocytes # (Manual) D-Dimer Heparin Anti-Xa Level 1.31 H 1.70 H Sodium Potassium Chloride Carbon Dioxide BUN Creatinine Glucose POC Glucose 200 H Lactic Acid Calcium ALT Troponin T C-Reactive Protein Albumin Triglycerides HDL Cholesterol Vitamin B12 Folate 07/04/18 07/05/18 07/05/18 20:56 06:17 06:17 WBC RBC 3.51 L Hgb Hct MCV 104 H MCH 35 H RDW Plt Count Lymph % (Auto) 7.8 L Lymph # 0.7 L Baso # Seg Neutrophils % 85.2 H Seg Neuts % (Manual) Lymphocytes % (Manual) Nucleated RBC % Seg Neutrophils # Seg Neutrophils # Man Lymphocytes # (Manual) Monocytes # (Manual) D-Dimer Heparin Anti-Xa Level Sodium 132 L Potassium 3.1 L Chloride 92.7 L Carbon Dioxide BUN 29 H Creatinine 7.3 H Glucose 115 H POC Glucose 133 H Lactic Acid Calcium 7.9 L ALT Troponin T C-Reactive Protein Albumin Triglycerides HDL Cholesterol Vitamin B12 Folate 07/05/18 07/06/18 07/06/18 23:47 06:53 06:53 WBC RBC 3.47 L Hgb Hct MCV 104 H MCH 35 H RDW Plt Count Lymph % (Auto) Lymph # Baso # Seg Neutrophils % Seg Neuts % (Manual) 93.0 H Lymphocytes % (Manual) 2.0 L Nucleated RBC % Seg Neutrophils # Seg Neutrophils # Man 8.6 H Lymphocytes # (Manual) 0.2 L Monocytes # (Manual) D-Dimer Heparin Anti-Xa Level Sodium 132 L Potassium 3.2 L Chloride 94.5 L Carbon Dioxide BUN 32 H Creatinine 8.7 H Glucose 106 H POC Glucose 112 H Lactic Acid Calcium 7.8 L ALT Troponin T C-Reactive Protein Albumin Triglycerides HDL Cholesterol Vitamin B12 Folate 07/06/18 07/06/18 07/07/18 16:23 22:56 07:56 WBC RBC Hgb Hct MCV MCH RDW Plt Count Lymph % (Auto) Lymph # Baso # Seg Neutrophils % Seg Neuts % (Manual) Lymphocytes % (Manual) Nucleated RBC % Seg Neutrophils # Seg Neutrophils # Man Lymphocytes # (Manual) Monocytes # (Manual) D-Dimer Heparin Anti-Xa Level Sodium Potassium Chloride Carbon Dioxide BUN Creatinine Glucose POC Glucose 126 H 139 H 181 H Lactic Acid Calcium ALT Troponin T C-Reactive Protein Albumin Triglycerides HDL Cholesterol Vitamin B12 Folate 07/07/18 07/07/18 07/07/18 09:35 09:35 12:52 WBC RBC Hgb Hct MCV 105 H MCH 35 H RDW Plt Count Lymph % (Auto) 6.3 L Lymph # 0.6 L Baso # Seg Neutrophils % 87.9 H Seg Neuts % (Manual) Lymphocytes % (Manual) Nucleated RBC % Seg Neutrophils # 8.2 H Seg Neutrophils # Man Lymphocytes # (Manual) Monocytes # (Manual) D-Dimer Heparin Anti-Xa Level Sodium 130 L Potassium 3.4 L Chloride 90.3 L Carbon Dioxide BUN 29 H Creatinine 8.0 H Glucose 201 H POC Glucose 161 H Lactic Acid Calcium 8.0 L ALT Troponin T C-Reactive Protein Albumin Triglycerides HDL Cholesterol Vitamin B12 Folate 07/07/18 07/08/18 07/08/18 21:56 05:19 05:19 WBC 12.7 H RBC Hgb Hct MCV 104 H MCH 35 H RDW Plt Count Lymph % (Auto) Lymph # Baso # Seg Neutrophils % Seg Neuts % (Manual) 92.0 H Lymphocytes % (Manual) 5.0 L Nucleated RBC % 1.0 H Seg Neutrophils # Seg Neutrophils # Man 11.7 H Lymphocytes # (Manual) 0.6 L Monocytes # (Manual) D-Dimer Heparin Anti-Xa Level Sodium 134 L Potassium 3.4 L Chloride 93.6 L Carbon Dioxide BUN 30 H Creatinine 8.0 H Glucose 184 H POC Glucose 162 H Lactic Acid Calcium ALT Troponin T C-Reactive Protein Albumin Triglycerides HDL Cholesterol Vitamin B12 Folate 07/08/18 07/08/18 07/08/18 05:19 05:19 08:25 WBC RBC Hgb Hct MCV MCH RDW Plt Count Lymph % (Auto) Lymph # Baso # Seg Neutrophils % Seg Neuts % (Manual) Lymphocytes % (Manual) Nucleated RBC % Seg Neutrophils # Seg Neutrophils # Man Lymphocytes # (Manual) Monocytes # (Manual) D-Dimer Heparin Anti-Xa Level Sodium Potassium Chloride Carbon Dioxide BUN Creatinine Glucose POC Glucose 200 H Lactic Acid Calcium ALT Troponin T C-Reactive Protein Albumin Triglycerides HDL Cholesterol Vitamin B12 1416 H Folate 2.39 L 07/08/18 07/08/18 07/08/18 11:48 16:14 21:53 WBC RBC Hgb Hct MCV MCH RDW Plt Count Lymph % (Auto) Lymph # Baso # Seg Neutrophils % Seg Neuts % (Manual) Lymphocytes % (Manual) Nucleated RBC % Seg Neutrophils # Seg Neutrophils # Man Lymphocytes # (Manual) Monocytes # (Manual) D-Dimer Heparin Anti-Xa Level Sodium Potassium Chloride Carbon Dioxide BUN Creatinine Glucose POC Glucose 202 H 176 H 219 H Lactic Acid Calcium ALT Troponin T C-Reactive Protein Albumin Triglycerides HDL Cholesterol Vitamin B12 Folate 07/09/18 07/09/18 07/09/18 07:50 09:51 09:51 WBC 15.8 H RBC Hgb Hct 43.4 H MCV 105 H MCH 34 H RDW Plt Count Lymph % (Auto) Lymph # Baso # Seg Neutrophils % Seg Neuts % (Manual) 94.0 H Lymphocytes % (Manual) 3.0 L Nucleated RBC % 1.0 H Seg Neutrophils # Seg Neutrophils # Man 14.9 H Lymphocytes # (Manual) 0.5 L Monocytes # (Manual) D-Dimer Heparin Anti-Xa Level Sodium 135 L Potassium Chloride 95.5 L Carbon Dioxide BUN 29 H Creatinine 8.4 H Glucose 204 H POC Glucose 163 H Lactic Acid Calcium ALT Troponin T C-Reactive Protein Albumin Triglycerides HDL Cholesterol Vitamin B12 Folate 07/09/18 07/09/18 07/09/18 11:50 18:47 22:16 WBC RBC Hgb Hct MCV MCH RDW Plt Count Lymph % (Auto) Lymph # Baso # Seg Neutrophils % Seg Neuts % (Manual) Lymphocytes % (Manual) Nucleated RBC % Seg Neutrophils # Seg Neutrophils # Man Lymphocytes # (Manual) Monocytes # (Manual) D-Dimer Heparin Anti-Xa Level Sodium Potassium Chloride Carbon Dioxide BUN Creatinine Glucose POC Glucose 156 H 176 H 189 H Lactic Acid Calcium ALT Troponin T C-Reactive Protein Albumin Triglycerides HDL Cholesterol Vitamin B12 Folate 07/10/18 07/10/18 07/10/18 05:35 08:22 08:52 WBC 17.9 H RBC Hgb Hct MCV 105 H MCH 34 H RDW Plt Count Lymph % (Auto) Lymph # Baso # Seg Neutrophils % Seg Neuts % (Manual) 87.0 H Lymphocytes % (Manual) 6.0 L Nucleated RBC % Seg Neutrophils # Seg Neutrophils # Man 15.6 H Lymphocytes # (Manual) 1.1 L Monocytes # (Manual) 1.1 H D-Dimer Heparin Anti-Xa Level Sodium 135 L Potassium Chloride 92.8 L Carbon Dioxide BUN 27 H Creatinine 7.5 H Glucose 175 H POC Glucose 129 H Lactic Acid Calcium ALT Troponin T C-Reactive Protein Albumin Triglycerides HDL Cholesterol Vitamin B12 Folate 07/10/18 07/10/18 07/10/18 11:47 18:22 21:32 WBC RBC Hgb Hct MCV MCH RDW Plt Count Lymph % (Auto) Lymph # Baso # Seg Neutrophils % Seg Neuts % (Manual) Lymphocytes % (Manual) Nucleated RBC % Seg Neutrophils # Seg Neutrophils # Man Lymphocytes # (Manual) Monocytes # (Manual) D-Dimer Heparin Anti-Xa Level Sodium Potassium Chloride Carbon Dioxide BUN Creatinine Glucose POC Glucose 189 H 211 H 306 H Lactic Acid Calcium ALT Troponin T C-Reactive Protein Albumin Triglycerides HDL Cholesterol Vitamin B12 Folate 07/11/18 07/11/18 07/11/18 04:10 07:36 11:49 WBC 19.4 H RBC Hgb Hct MCV 107 H MCH 35 H RDW 15.3 H Plt Count Lymph % (Auto) Lymph # Baso # Seg Neutrophils % Seg Neuts % (Manual) 89.0 H Lymphocytes % (Manual) 4.0 L Nucleated RBC % Seg Neutrophils # Seg Neutrophils # Man 17.3 H Lymphocytes # (Manual) 0.8 L Monocytes # (Manual) D-Dimer Heparin Anti-Xa Level Sodium Potassium Chloride Carbon Dioxide BUN Creatinine Glucose POC Glucose 113 H 123 H Lactic Acid Calcium ALT Troponin T C-Reactive Protein Albumin Triglycerides HDL Cholesterol Vitamin B12 Folate 07/11/18 07/11/18 07/12/18 17:35 23:28 00:48 WBC 17.0 H RBC Hgb Hct MCV 106 H MCH 35 H RDW Plt Count Lymph % (Auto) Lymph # Baso # Seg Neutrophils % Seg Neuts % (Manual) 92.0 H Lymphocytes % (Manual) 3.0 L Nucleated RBC % Seg Neutrophils # Seg Neutrophils # Man 15.6 H Lymphocytes # (Manual) 0.5 L Monocytes # (Manual) 0.9 H D-Dimer Heparin Anti-Xa Level Sodium Potassium Chloride Carbon Dioxide BUN Creatinine Glucose POC Glucose 207 H 188 H Lactic Acid Calcium ALT Troponin T C-Reactive Protein Albumin Triglycerides HDL Cholesterol Vitamin B12 Folate 07/12/18 07/12/1807/12/19 04:05 09:21 12:05 WBC RBC Hgb Hct MCV MCH RDW Plt Count Lymph % (Auto) Lymph # Baso # Seg Neutrophils % Seg Neuts % (Manual) Lymphocytes % (Manual) Nucleated RBC % Seg Neutrophils # Seg Neutrophils # Man Lymphocytes # (Manual) Monocytes # (Manual) D-Dimer Heparin Anti-Xa Level Sodium Potassium Chloride Carbon Dioxide BUN Creatinine Glucose POC Glucose 147 H 125 H 113 H Lactic Acid Calcium ALT Troponin T C-Reactive Protein Albumin Triglycerides HDL Cholesterol Vitamin B12 Folate 07/12/18 07/13/18 07/13/18 22:25 05:28 05:28 WBC 15.5 H RBC 3.62 L Hgb Hct MCV 105 H MCH 34 H RDW Plt Count Lymph % (Auto) Lymph # Baso # Seg Neutrophils % Seg Neuts % (Manual) 99.0 H Lymphocytes % (Manual) 1.0 L Nucleated RBC % Seg Neutrophils # Seg Neutrophils # Man 15.3 H Lymphocytes # (Manual) 0.2 L Monocytes # (Manual) D-Dimer Heparin Anti-Xa Level Sodium 133 L Potassium Chloride 95.0 L Carbon Dioxide BUN 43 H Creatinine 9.1 H Glucose 124 H POC Glucose 162 H Lactic Acid Calcium 8.0 L ALT Troponin T C-Reactive Protein Albumin Triglycerides HDL Cholesterol Vitamin B12 Folate 07/13/18 07/13/18 07/13/18 07:59 11:40 16:41 WBC RBC Hgb Hct MCV MCH RDW Plt Count Lymph % (Auto) Lymph # Baso # Seg Neutrophils % Seg Neuts % (Manual) Lymphocytes % (Manual) Nucleated RBC % Seg Neutrophils # Seg Neutrophils # Man Lymphocytes # (Manual) Monocytes # (Manual) D-Dimer Heparin Anti-Xa Level Sodium Potassium Chloride Carbon Dioxide BUN Creatinine Glucose POC Glucose 191 H 195 H 204 H Lactic Acid Calcium ALT Troponin T C-Reactive Protein Albumin Triglycerides HDL Cholesterol Vitamin B12 Folate 07/13/18 07/14/18 07/14/18 22:38 04:15 04:15 WBC 13.1 H RBC Hgb Hct MCV 107 H MCH 34 H RDW Plt Count Lymph % (Auto) Lymph # Baso # Seg Neutrophils % Seg Neuts % (Manual) 89.0 H Lymphocytes % (Manual) 6.0 L Nucleated RBC % Seg Neutrophils # Seg Neutrophils # Man 11.7 H Lymphocytes # (Manual) 0.8 L Monocytes # (Manual) D-Dimer Heparin Anti-Xa Level Sodium 136 L Potassium Chloride 95.3 L Carbon Dioxide BUN 40 H Creatinine 8.1 H Glucose POC Glucose 190 H Lactic Acid Calcium ALT Troponin T C-Reactive Protein Albumin Triglycerides HDL Cholesterol Vitamin B12 Folate 07/14/18 07/14/18 07/14/18 07:57 12:18 17:24 WBC RBC Hgb Hct MCV MCH RDW Plt Count Lymph % (Auto) Lymph # Baso # Seg Neutrophils % Seg Neuts % (Manual) Lymphocytes % (Manual) Nucleated RBC % Seg Neutrophils # Seg Neutrophils # Man Lymphocytes # (Manual) Monocytes # (Manual) D-Dimer Heparin Anti-Xa Level Sodium Potassium Chloride Carbon Dioxide BUN Creatinine Glucose POC Glucose 205 H 180 H 249 H Lactic Acid Calcium ALT Troponin T C-Reactive Protein Albumin Triglycerides HDL Cholesterol Vitamin B12 Folate 07/14/18 07/15/18 07/15/18 22:19 06:42 06:42 WBC 11.9 H RBC Hgb Hct MCV 105 H MCH 34 H RDW Plt Count Lymph % (Auto) 6.4 L Lymph # 0.8 L Baso # Seg Neutrophils % 89.6 H Seg Neuts % (Manual) Lymphocytes % (Manual) Nucleated RBC % Seg Neutrophils # 10.6 H Seg Neutrophils # Man Lymphocytes # (Manual) Monocytes # (Manual) D-Dimer Heparin Anti-Xa Level Sodium 131 L Potassium 3.5 L Chloride 94.3 L Carbon Dioxide BUN 36 H Creatinine 7.0 H Glucose 166 H POC Glucose 156 H Lactic Acid Calcium 8.1 L ALT Troponin T C-Reactive Protein Albumin Triglycerides HDL Cholesterol Vitamin B12 Folate 07/15/18 07/15/18 07/15/18 08:12 11:46 15:44 WBC RBC Hgb Hct MCV MCH RDW Plt Count Lymph % (Auto) Lymph # Baso # Seg Neutrophils % Seg Neuts % (Manual) Lymphocytes % (Manual) Nucleated RBC % Seg Neutrophils # Seg Neutrophils # Man Lymphocytes # (Manual) Monocytes # (Manual) D-Dimer Heparin Anti-Xa Level Sodium Potassium Chloride Carbon Dioxide BUN Creatinine Glucose POC Glucose 187 H 201 H 169 H Lactic Acid Calcium ALT Troponin T C-Reactive Protein Albumin Triglycerides HDL Cholesterol Vitamin B12 Folate 07/15/18 07/16/18 07/16/18 23:09 00:22 01:52 WBC RBC Hgb Hct MCV MCH RDW Plt Count Lymph % (Auto) Lymph # Baso # Seg Neutrophils % Seg Neuts % (Manual) Lymphocytes % (Manual) Nucleated RBC % Seg Neutrophils # Seg Neutrophils # Man Lymphocytes # (Manual) Monocytes # (Manual) D-Dimer Heparin Anti-Xa Level Sodium Potassium Chloride Carbon Dioxide BUN Creatinine Glucose 234 H POC Glucose < 40 L 203 H Lactic Acid Calcium ALT Troponin T C-Reactive Protein Albumin Triglycerides HDL Cholesterol Vitamin B12 Folate 07/16/18 07/16/18 07/16/18 04:22 05:12 05:12 WBC 14.0 H RBC 3.58 L Hgb Hct MCV 106 H MCH 34 H RDW Plt Count Lymph % (Auto) Lymph # Baso # Seg Neutrophils % Seg Neuts % (Manual) 92.0 H Lymphocytes % (Manual) 4.0 L Nucleated RBC % Seg Neutrophils # Seg Neutrophils # Man 12.9 H Lymphocytes # (Manual) 0.6 L Monocytes # (Manual) D-Dimer Heparin Anti-Xa Level Sodium 130 L Potassium 2.9 L* Chloride 92.9 L Carbon Dioxide BUN 38 H Creatinine 6.8 H Glucose 194 H POC Glucose 194 H Lactic Acid Calcium ALT Troponin T C-Reactive Protein Albumin Triglycerides HDL Cholesterol Vitamin B12 Folate 07/16/18 07/16/18 07/16/18 08:45 12:22 16:42 WBC RBC Hgb Hct MCV MCH RDW Plt Count Lymph % (Auto) Lymph # Baso # Seg Neutrophils % Seg Neuts % (Manual) Lymphocytes % (Manual) Nucleated RBC % Seg Neutrophils # Seg Neutrophils # Man Lymphocytes # (Manual) Monocytes # (Manual) D-Dimer Heparin Anti-Xa Level Sodium Potassium Chloride Carbon Dioxide BUN Creatinine Glucose POC Glucose 155 H 208 H 143 H Lactic Acid Calcium ALT Troponin T C-Reactive Protein Albumin Triglycerides HDL Cholesterol Vitamin B12 Folate 07/16/18 07/17/18 07/18/18 22:02 04:32 00:56 WBC 13.9 H RBC 3.43 L Hgb Hct MCV 106 H MCH 35 H RDW 15.6 H Plt Count Lymph % (Auto) Lymph # Baso # Seg Neutrophils % Seg Neuts % (Manual) 88.0 H Lymphocytes % (Manual) 2.0 L Nucleated RBC % Seg Neutrophils # Seg Neutrophils # Man 12.2 H Lymphocytes # (Manual) 0.3 L Monocytes # (Manual) D-Dimer Heparin Anti-Xa Level Sodium 131 L Potassium Chloride 93.6 L Carbon Dioxide BUN 45 H Creatinine 7.2 H Glucose POC Glucose 115 H Lactic Acid Calcium ALT Troponin T C-Reactive Protein Albumin Triglycerides HDL Cholesterol Vitamin B12 Folate 07/18/18 07/18/18 07/18/18 04:23 16:08 18:24 WBC RBC Hgb Hct MCV MCH RDW Plt Count Lymph % (Auto) Lymph # Baso # Seg Neutrophils % Seg Neuts % (Manual) Lymphocytes % (Manual) Nucleated RBC % Seg Neutrophils # Seg Neutrophils # Man Lymphocytes # (Manual) Monocytes # (Manual) D-Dimer Heparin Anti-Xa Level Sodium Potassium Chloride Carbon Dioxide BUN 22 H Creatinine 4.9 H Glucose 60 L POC Glucose 62 L 116 H Lactic Acid Calcium 7.5 L ALT Troponin T C-Reactive Protein Albumin Triglycerides HDL Cholesterol Vitamin B12 Folate 07/18/18 07/19/18 07/19/18 21:55 11:15 13:04 WBC 13.3 H RBC 3.40 L Hgb Hct MCV 108 H MCH 34 H RDW 16.1 H Plt Count Lymph % (Auto) Lymph # Baso # Seg Neutrophils % Seg Neuts % (Manual) 97.0 H Lymphocytes % (Manual) 1.0 L Nucleated RBC % Seg Neutrophils # Seg Neutrophils # Man 12.9 H Lymphocytes # (Manual) 0.1 L Monocytes # (Manual) D-Dimer Heparin Anti-Xa Level Sodium Potassium Chloride Carbon Dioxide BUN Creatinine Glucose POC Glucose 114 H 109 H Lactic Acid Calcium ALT Troponin T C-Reactive Protein Albumin Triglycerides HDL Cholesterol Vitamin B12 Folate 07/19/18 07/19/18 07/20/18 22:18 23:41 07:18 WBC RBC Hgb Hct MCV MCH RDW Plt Count Lymph % (Auto) Lymph # Baso # Seg Neutrophils % Seg Neuts % (Manual) Lymphocytes % (Manual) Nucleated RBC % Seg Neutrophils # Seg Neutrophils # Man Lymphocytes # (Manual) Monocytes # (Manual) D-Dimer Heparin Anti-Xa Level Sodium Potassium Chloride Carbon Dioxide BUN Creatinine Glucose POC Glucose 52 L 132 H 108 H Lactic Acid Calcium ALT Troponin T C-Reactive Protein Albumin Triglycerides HDL Cholesterol Vitamin B12 Folate 07/20/18 12:07 WBC RBC Hgb Hct MCV MCH RDW Plt Count Lymph % (Auto) Lymph # Baso # Seg Neutrophils % Seg Neuts % (Manual) Lymphocytes % (Manual) Nucleated RBC % Seg Neutrophils # Seg Neutrophils # Man Lymphocytes # (Manual) Monocytes # (Manual) D-Dimer Heparin Anti-Xa Level Sodium Potassium Chloride Carbon Dioxide BUN Creatinine Glucose POC Glucose 120 H Lactic Acid Calcium ALT Troponin T C-Reactive Protein Albumin Triglycerides HDL Cholesterol Vitamin B12 Folate Allied health notes reviewed: nursing
[2018-07-20] MEDS: MAXIPIME/NS 1 GM/100 ML 1 GM/100 ML BAG IV SCH (21:02)
[2018-07-21] MEDS: MORPHINE IV PRN (03:53)
[2018-07-21] MEDS: PROAMATINE PO SCH ×3 (07:56→20:50)
[2018-07-21] MEDS: RENVELA PO SCH ×3 (07:56→18:16)
[2018-07-21] MEDS: HumaLOG SUB-Q SCH ×3 (07:56→17:19)
[2018-07-21] MEDS: CORTEF PO SCH (11:07)
[2018-07-21] MEDS: FLORINEF PO SCH (11:07)
[2018-07-21] MEDS: COLACE PO SCH ×2 (11:07→21:12)
[2018-07-21] MEDS: BABY ASPIRIN PO SCH (11:08)
[2018-07-21] MEDS: MIRALAX 3350 PO SCH (11:08)
[2018-07-21] MEDS: ELIQUIS PO SCH ×2 (11:08→21:11)
[2018-07-21] MEDS: FOLVITE PO SCH (11:08)
[2018-07-21] MEDS: PROTONIX PO SCH (11:09)
[2018-07-21] MEDS: ROCALTROL PO SCH (11:09)
--- NOTE | 2018-07-21 14:38 | Progress Note ---
Assessment and Plan Assessment and plan: Sepsis 2/2 PD associated peritonitis. - Patient is currently cefepime and vancomycin - Blood cultures negative. PD culture grew micrococcus. - IV following PD catheter malfunction - PD catheter removed on 07/18 and it grew micrococcus - currently, patient is on HD Chronic Hypotension - on midodrine - Also on hydrocortisone and fludrocortisone for possible adrenal insufficiency - cortisol level pending HLD, on statin ESRD on PD, now changed to HD -patient has permcath -Nephrology following Diabetes type 2 -Stable on SSI Elevated troponin/NSTEMI type 2 - Stress test negative DVT left lower ext. -Cont. Eliquis. Disposition; patient was initially accepted by [facility], but was subsequently denied because she's currently on HD. Discharge pending O/P HD chair. History Interval history: Patient has no new complaints. No fever reported overnight. Hospitalist Physical - Constitutional Vitals: Temp Pulse Resp BP Pulse Ox 97.8 F 103 H 18 101/54 100 07/21/18 07:20 07/21/18 09:55 07/21/18 09:55 07/21/18 07:20 07/21/18 09:55 General appearance: Present: no acute distress, obese - EENT Eyes: Present: PERRL, EOM intact ENT: hearing intact, clear oral mucosa - Neck Neck: Present: supple, normal ROM - Respiratory Respiratory effort: normal Respiratory: bilateral: CTA - Cardiovascular Rhythm: regular Heart Sounds: Present: S1 & S2 - Extremities Extremities: No edema - Abdominal General gastrointestinal: soft, non-tender, non-distended, normal bowel sounds - Integumentary Integumentary: Present: clear, warm, dry - Neurologic Neurologic: CNII-XII intact Results - Labs CBC & Chem 7: 07/19/18 13:04 07/18/18 04:23 Labs: Laboratory Last Values WBC 13.3 K/mm3 (4.5-11.0) H 07/19/18 13:04 RBC 3.40 M/mm3 (3.65-5.03) L 07/19/18 13:04 Hgb 11.7 gm/dl (10.1-14.3) 07/19/18 13:04 Hct 36.8 % (30.3-42.9) 07/19/18 13:04 MCV 108 fl (79-97) H 07/19/18 13:04 MCH 34 pg (28-32) H 07/19/18 13:04 MCHC 32 % (30-34) 07/19/18 13:04 RDW 16.1 % (13.2-15.2) H 07/19/18 13:04 Plt Count 209 K/mm3 (140-440) 07/19/18 13:04 Lymph % (Auto) 6.4 % (13.4-35.0) L 07/15/18 06:42 [place] % (Auto) 3.4 % (0.0-7.3) 07/15/18 06:42 Eos % (Auto) 0.5 % (0.0-4.3) 07/15/18 06:42 Baso % (Auto) 0.1 % (0.0-1.8) 07/15/18 06:42 Lymph # 0.8 K/mm3 (1.2-5.4) L 07/15/18 06:42 Ev[place]eline # 0.4 K/mm3 (0.0-0.8) 07/15/18 06:42 Eos # 0.1 K/mm3 (0.0-0.4) 07/15/18 06:42 Baso # 0.0 K/mm3 (0.0-0.1) 07/15/18 06:42 Add Manual Diff Complete 07/19/18 13:04 Total Counted 100 07/19/18 13:04 Seg Neutrophils % Cake Puller 07/18/18 00:56 Seg Neuts % (Manual) 97.0 % (40.0-70.0) H 07/19/18 13:04 Band Neutrophils % 0 % 07/19/18 13:04 Lymphocytes % (Manual) 1.0 % (13.4-35.0) L 07/19/18 13:04 Reactive Lymphs % (Man) 0 % 07/19/18 13:04 Monocytes % (Manual) 0 % (0.0-7.3) 07/19/18 13:04 Eosinophils % (Manual) 1.0 % (0.0-4.3) 07/19/18 13:04 Basophils % (Manual) 0 % (0.0-1.8) 07/19/18 13:04 Metamyelocytes % 1.0 % 07/19/18 13:04 Myelocytes % 0 % 07/19/18 13:04 Promyelocytes % 0 % 07/19/18 13:04 Blast Cells % 0 % 07/19/18 13:04 Nucleated RBC % Not Reportable 07/19/18 13:04 Seg Neutrophils # 10.6 K/mm3 (1.8-7.7) H 07/15/18 06:42 Seg Neutrophils # Man 12.9 K/mm3 (1.8-7.7) H 07/19/18 13:04 Band Neutrophils # 0.0 K/mm3 07/19/18 13:04 Lymphocytes # (Manual) 0.1 K/mm3 (1.2-5.4) L 07/19/18 13:04 Abs React Lymphs (Man) 0.0 K/mm3 07/19/18 13:04 Monocytes # (Manual) 0.0 K/mm3 (0.0-0.8) 07/19/18 13:04 Eosinophils # (Manual) 0.1 K/mm3 (0.0-0.4) 07/19/18 13:04 Basophils # (Manual) 0.0 K/mm3 (0.0-0.1) 07/19/18 13:04 Metamyelocytes # 0.1 K/mm3 07/19/18 13:04 Myelocytes # 0.0 K/mm3 07/19/18 13:04 Promyelocytes # 0.0 K/mm3 07/19/18 13:04 Blast Cells # 0.0 K/mm3 07/19/18 13:04 WBC Morphology Not Reportable 07/19/18 13:04 Hypersegmented Neuts Not Reportable 07/19/18 13:04 Hyposegmented Neuts Not Reportable 07/19/18 13:04 Hypogranular Neuts Not Reportable 07/19/18 13:04 Smudge Cells Not Reportable 07/19/18 13:04 Toxic Granulation Not Reportable 07/19/18 13:04 Toxic Vacuolation Not Reportable 07/19/18 13:04 Dohle Bodies Not Reportable 07/19/18 13:04 Pelger-Huet Anomaly Not Reportable 07/19/18 13:04 Nomi Rods Not Reportable 07/19/18 13:04 Platelet Estimate Consistent w auto 07/19/18 13:04 Clumped Platelets Not Reportable 07/19/18 13:04 Plt Clumps, EDTA Not Reportable 07/19/18 13:04 Large Platelets Few 07/19/18 13:04 Giant Platelets Not Reportable 07/19/18 13:04 Platelet Satelliting Not Reportable 07/19/18 13:04 Plt Morphology Comment Not Reportable 07/19/18 13:04 RBC Morphology Not Reportable 07/19/18 13:04 Dimorphic RBCs Not Reportable 07/19/18 13:04 Polychromasia Not Reportable 07/19/18 13:04 Hypochromasia Not Reportable 07/19/18 13:04 Poikilocytosis Not Reportable 07/19/18 13:04 Anisocytosis 1+ 07/19/18 13:04 Microcytosis Not Reportable 07/19/18 13:04 Macrocytosis Not Reportable 07/19/18 13:04 Spherocytes Not Reportable 07/19/18 13:04 Pappenheimer Bodies Not Reportable 07/19/18 13:04 Sickle Cells Not Reportable 07/19/18 13:04 Target Cells Not Reportable 07/19/18 13:04 Tear Drop Cells Not Reportable 07/19/18 13:04 Ovalocytes Not Reportable 07/19/18 13:04 Helmet Cells Not Reportable 07/19/18 13:04 [place] Bodies Not Reportable 07/19/18 13:04 [place] Rings Not Reportable 07/19/18 13:04 [place] Cells Not Reportable 07/19/18 13:04 Bite Cells Not Reportable 07/19/18 13:04 Crenated Cell Not Reportable 07/19/18 13:04 Elliptocytes Not Reportable 07/19/18 13:04 Acanthocytes (Spur) Not Reportable 07/19/18 13:04 Rouleaux Not Reportable 07/19/18 13:04 Hemoglobin C Crystals Not Reportable 07/19/18 13:04 Schistocytes Not Reportable 07/19/18 13:04 Malaria parasites Not Reportable 07/19/18 13:04 [place] Bodies Not Reportable 07/19/18 13:04 Hem Pathologist Commnt No 07/19/18 13:04 PT 13.6 Sec. (12.2-14.9) 07/03/18 12:39 INR 0.98 (0.87-1.13) 07/03/18 12:39 APTT 34.1 Sec. (24.2-36.6) 07/03/18 12:39 D-Dimer > 26914 ng/mlDDU (0-234) H 06/28/18 22:26 Heparin Anti-Xa Level 1.70 U.I./ml (0.3-0.7) H 07/04/18 14:59 Sodium 137 mmol/L (137-145) 07/18/18 04:23 Potassium 4.2 mmol/L (3.6-5.0) 07/18/18 04:23 Chloride 99.4 mmol/L (98-107) 07/18/18 04:23 Carbon Dioxide 23 mmol/L (22-30) 07/18/18 04:23 Anion Gap 19 mmol/L 07/18/18 04:23 BUN 22 mg/dL (7-17) H 07/18/18 04:23 Creatinine 4.9 mg/dL (0.7-1.2) H 07/18/18 04:23 Estimated GFR 11 ml/min 07/18/18 04:23 BUN/Creatinine Ratio 4 % 07/18/18 04:23 Glucose 60 mg/dL (65-100) L 07/18/18 04:23 POC Glucose 97 (70-105) 07/21/18 11:16 Lactic Acid 2.20 mmol/L (0.7-2.0) H* 07/02/18 05:22 Calcium 7.5 mg/dL (8.4-10.2) L 07/18/18 04:23 Total Bilirubin 0.40 mg/dL (0.1-1.2) 06/28/18 20:54 AST 25 units/L (5-40) 06/28/18 20:54 ALT 5 units/L (7-56) L 06/28/18 20:54 Alkaline Phosphatase 88 units/L (35-129) 06/28/18 20:54 Total Creatine Kinase 118 units/L (30-135) 06/29/18 20:37 Troponin T 0.077 ng/mL (0.00-0.029) H 06/29/18 20:37 C-Reactive Protein 7.40 mg/dL (0.00-1.30) H 07/01/18 13:32 Total Protein 7.4 g/dL (6.3-8.2) 06/28/18 20:54 Albumin 3.2 g/dL (3.9-5) L 06/28/18 20:54 Albumin/Globulin Ratio 0.8 % 06/28/18 20:54 Triglycerides 194 mg/dL (2-149) H 06/28/18 10:38 Cholesterol 167 mg/dL (50-199) 06/28/18 10:38 LDL Cholesterol Direct 61 mg/dL (50-130) 06/28/18 10:38 HDL Cholesterol 68 mg/dL (40-59) H 06/28/18 10:38 Cholesterol/HDL Ratio 2.45 % 06/28/18 10:38 Vitamin B12 1416 pg/mL (211-911) H 07/08/18 05:19 Folate 2.39 ng/mL (7.3-26.0) L 07/08/18 05:19 Fluid Type Peritoneal 07/14/18 14:48 Fluid Color Straw 07/14/18 14:48 Fluid Appearance Cloudy 07/14/18 14:48 Fluid WBC 2700 /mm3 07/14/18 14:48 Fluid RBC 39 /mm3 07/14/18 14:48 Fluid Seg Neutrophils 96.0 % 07/14/18 14:48 Fluid Lymphocytes 3.0 % 07/14/18 14:48 Fluid Reactive Lymphs 0 % 07/14/18 14:48 Fluid Monocytes 1.0 % 07/14/18 14:48 Fluid Eosinophils 0 % 07/14/18 14:48 Fluid Basophils 0 % 07/14/18 14:48 Random Vancomycin 19 ug/mL (0-40.0) 07/16/18 05:12 Active Medications - Current Medications Current Medications: Generic Name Dose Route Start Last Admin Trade Name Freq PRN Reason Stop Dose Admin Acetaminophen 650 mg 07/15/18 12:55 07/15/18 13:53 Tylenol PO 650 mg Q4H PRN Administration Pain, Mild (1-3) Apixaban 5 mg 07/18/18 22:00 07/21/18 11:08 Eliquis PO 5 mg Q12HR DIANE Administration Protocol Aspirin 81 mg 06/29/18 13:00 07/21/18 11:08 Baby Aspirin PO 81 mg QDAY DIANE Administration Atorvastatin Calcium 40 mg 06/29/18 22:00 07/20/18 21:03 Lipitor PO 40 mg QHS DIANE Administration Calcitriol 0.5 mcg 06/29/18 13:00 07/21/18 11:09 Rocaltrol PO 0.5 mcg QDAY DIANE Administration Docusate Sodium 100 mg 07/02/18 10:00 07/21/18 11:07 Colace PO 100 mg BID DIANE Administration Fludrocortisone Acetate 0.1 mg 07/15/18 14:00 07/21/18 11:07 Florinef PO 0.1 mg QDAY DIANE Administration Folic Acid 1 mg 07/10/18 14:00 07/21/18 11:08 Folvite PO 1 mg QDAY DIANE Administration Heparin Sodium (Porcine) 5,000 unit 07/16/18 18:52 Heparin IV THOMAS PRN hemodialysis Hydrocortisone Acetate 20 mg 07/20/18 11:30 07/21/18 11:07 Cortef PO 07/24/18 10:01 20 mg QDAY DIANE Administration Sodium Chloride 100 mls @ 999 mls/hr 07/16/18 18:52 Nacl 0.9% IV THOMAS PRN Hypotension Cefepime HCl 1 gm in 100 mls @ 200 mls/hr 07/16/18 22:00 07/20/18 21:32 Maxipime/Ns 1 Gm/100 Ml IV 08/01/18 23:59 Infused QHS DIANE Infusion Protocol Vancomycin HCl 1 gm in 250 mls @ 167.007 mls/hr 07/17/18 18:00 07/19/18 19:52 Vancomycin/Ns 1 Gm/250 Ml IV 08/01/18 23:59 Infused [id number] DIANE Infusion Sodium Chloride 1,000 mls @ 42 mls/hr 07/18/18 14:00 07/18/18 14:10 Nacl 0.9% 1000 Ml IV 42 mls/hr DIRECT DIANE Administration Insulin Human Lispro 0 unit 06/29/18 22:00 07/21/18 13:49 Humalog SUB-Q Not Given ACHS [facility] Protocol Lactulose 20 gm 07/13/18 12:00 Cephulac PO TID PRN Constipation Midodrine 10 mg 07/01/18 14:00 07/21/18 07:56 Proamatine PO 10 mg TID DIANE Administration Morphine Sulfate 2 mg 07/08/18 14:51 07/21/18 03:53 Morphine IV 2 mg Q4H PRN Administration Pain, Moderate (4-6) Pantoprazole Sodium 40 mg 07/08/18 10:00 07/21/18 11:09 Protonix PO 40 mg QDAY DIANE Administration Polyethylene Glycol 17 gm 07/02/18 10:00 07/21/18 11:08 Miralax 3350 PO 17 gm QDAY DIANE Administration Sevelamer Carbonate 1,600 mg 06/29/18 12:00 07/21/18 11:08 Renvela PO 1,600 mg TIDWM DIANE Administration Nutrition/Malnutrition Assess - Dietary Evaluation Nutrition/Malnutrition Findings: Nutrition Notes Start: 07/05/18 14:49 Freq: Status: Active Protocol: Document 07/18/18 14:21 RM (Rec: 07/18/18 14:24 RM [id number]) Nutrition Notes Initial or Follow up Reassessment Current Diagnosis Diabetes,Hypertension Other Pertinent Diagnosis ESRD on PD, Possible sepsis Current Diet NPO Labs/Tests Reviewed Pertinent Medications Reviewed Height 5 ft 6 in Weight 102.5 kg [place] Body Weight (kg) 59.09 BMI 36.4 Subjective/Other Information Pt asleep at time of visit. Per tech pt sipped Nepro last week but is unsure how pt has was eating before NPO status. Burn Absent Trauma Absent #1 Nutrition Diagnosis Inadequate oral intake Diagnosis Progress(for reassessment Continues documentation) Is patient on ventilator? No Is Patient Ambulatory and/or Out of Bed Yes REE-([facility]-ambulatory/OOB) [ 2030.275 [id number]] Kcal/Kg value to use for calculation 17 Approximate Energy Requirements Using 1743 kcal/Kg Calculation Used for Recommendations Kcal/kg Additional Notes Protein Needs: 92-100g (1.2-1. 3g/kg, 77kg adjBW) Fluid Needs: 1 ml/kcal Nutrition Intervention Change Diet Order: Continue current Add Supplement/Snack (indicate name/kcal Nepro 1 daily once diet /protein ) advance Provides kCal: 425 Provides Protein (gm) 19 Goal #1 Diet advancement Anticipated Discharge Needs: Renal diet Follow-Up By: 07/22/18 Additional Comments Follow for PO and ONS intake
--- NOTE | 2018-07-21 16:26 | Progress Note ---
Assessment and Plan Severe sepsis with septic shock HLD ESRD on PD Diabetes Elevated troponin/NSTEMI type 2 LLExt DVT Abdominal pain -Bowel regimen, serial abdominal exams - Nephrology for peritoneal dialysis - No infiltrates noted on CTA chest/chest x-ray/VQ scan -Increase activity -On midodrine for blood pressure support -De-escalate antibiotics based on cultures -Continue anticoagulation with Eliquis, monitor for bleeding complications -Influenza and pneumonia vaccination per protocol prior to discharge -Continue all supportive care Continue to monitor closely Subjective Date of service: 07/21/18 Principal diagnosis: dvt leg Interval history: Patient is seen today for: Septic Shock (etiology unclear) with lactic acidosis and hypotension; Hyperlipidemia; ESRD on PD; Diabetes type 2; Elevated troponin/NSTEMI type 2 Seen and examined at bedside; 24hour events reviewed; nursing and respiratory care staff consulted; no adverse overnight events reported to me; resting peacefully in bed; looks and feels better; denies acute chest pains or palpitations; No N/V/F/C; has some lower abdominal pain, episode of fecal incontinence this morning( received a dose of lactulose- possible overflow diarrhea), states she does not have an appetite this morning. Objective Vital Signs - 12hr 07/21/18 07/21/18 07/21/18 07:20 07:21 09:55 Temperature 97.8 F Pulse Rate 73 Pulse Rate [ 103 H From Monitor] Respiratory 18 18 Rate Blood Pressure 101/54 Blood Pressure [Left] O2 Sat by Pulse 98 100 Oximetry 07/21/18 14:00 Temperature 98.4 F Pulse Rate 84 Pulse Rate [ From Monitor] Respiratory 20 Rate Blood Pressure Blood Pressure 98/56 [Left] O2 Sat by Pulse 99 Oximetry Constitutional: no acute distress, alert Eyes: non-icteric ENT: oropharynx moist, other (mallampati 3) Neck: supple, no lymphadenopathy, no JVD, other (large neck circumference) Effort: normal Ascultation: Bilateral: diminished breath sounds, rhonchi (scant in bases) Percussion: Bilateral: not dull Cardiovascular: regular rate and rhythm, other (No R/M) Gastrointestinal: normoactive bowel sounds, soft, non-distended, other (No HSM, PD cathetr, clean dry site, mild lower abdominal tenderness, no rebound) Integumentary: normal Extremities: no cyanosis, no edema, pulses normal, no ischemia or petechiae Neurologic: normal mental status, non-focal exam (grossly), pupils equal and round, motor strength normal and Psychiatric: mood appropriate, affect normal CBC and BMP: 07/19/18 13:04 07/18/18 04:23 ABG, PT/INR, D-dimer: PT/INR, D-dimer PT 13.6 Sec. (12.2-14.9) 07/03/18 12:39 INR 0.98 (0.87-1.13) 07/03/18 12:39 D-Dimer > 37287 ng/mlDDU (0-234) H 06/28/18 22:26 Abnormal lab findings: Abnormal Labs 06/28/18 06/28/18 06/28/18 10:38 20:54 20:54 WBC 24.8 H RBC Hgb 16.6 H Hct 50.3 H MCV 107 H MCH 35 H RDW 15.6 H Plt Count Lymph % (Auto) Lymph # Baso # Seg Neutrophils % Seg Neuts % (Manual) 95.0 H Lymphocytes % (Manual) 3.0 L Nucleated RBC % Seg Neutrophils # Seg Neutrophils # Man 23.6 H Lymphocytes # (Manual) 0.7 L Monocytes # (Manual) D-Dimer Heparin Anti-Xa Level Sodium 131 L Potassium Chloride 89.6 L Carbon Dioxide 19 L BUN 29 H Creatinine 9.3 H Glucose 174 H POC Glucose Lactic Acid Calcium ALT 5 L Troponin T 0.073 H C-Reactive Protein Albumin 3.2 L Triglycerides 194 H HDL Cholesterol 68 H Vitamin B12 Folate 06/28/18 06/29/18 06/29/18 22:26 12:18 13:30 WBC RBC Hgb Hct MCV MCH RDW Plt Count Lymph % (Auto) Lymph # Baso # Seg Neutrophils % Seg Neuts % (Manual) Lymphocytes % (Manual) Nucleated RBC % Seg Neutrophils # Seg Neutrophils # Man Lymphocytes # (Manual) Monocytes # (Manual) D-Dimer > 43157 H Heparin Anti-Xa Level Sodium Potassium Chloride Carbon Dioxide BUN Creatinine Glucose POC Glucose 168 H Lactic Acid Calcium ALT Troponin T 0.073 H C-Reactive Protein Albumin Triglycerides HDL Cholesterol Vitamin B12 Folate 06/29/18 06/29/18 06/29/18 13:30 14:11 16:36 WBC 19.8 H RBC Hgb 14.7 H Hct 45.4 H MCV 108 H MCH 35 H RDW 15.9 H Plt Count Lymph % (Auto) Lymph # Baso # Seg Neutrophils % Seg Neuts % (Manual) Lymphocytes % (Manual) Nucleated RBC % Seg Neutrophils # Seg Neutrophils # Man Lymphocytes # (Manual) Monocytes # (Manual) D-Dimer Heparin Anti-Xa Level Sodium 133 L Potassium Chloride 91.7 L Carbon Dioxide 20 L BUN 33 H Creatinine 9.9 H Glucose 196 H POC Glucose 165 H Lactic Acid Calcium ALT Troponin T C-Reactive Protein Albumin Triglycerides HDL Cholesterol Vitamin B12 Folate 06/29/18 06/29/18 06/30/18 20:37 22:01 04:49 WBC 14.8 H RBC Hgb Hct MCV 106 H MCH 35 H RDW 15.5 H Plt Count Lymph % (Auto) Lymph # Baso # Seg Neutrophils % Seg Neuts % (Manual) 90.0 H Lymphocytes % (Manual) 5.0 L Nucleated RBC % Seg Neutrophils # Seg Neutrophils # Man 13.3 H Lymphocytes # (Manual) 0.7 L Monocytes # (Manual) D-Dimer Heparin Anti-Xa Level Sodium Potassium Chloride Carbon Dioxide BUN Creatinine Glucose POC Glucose 202 H Lactic Acid Calcium ALT Troponin T 0.077 H C-Reactive Protein Albumin Triglycerides HDL Cholesterol Vitamin B12 Folate 06/30/18 06/30/18 06/30/18 04:49 08:27 12:17 WBC RBC Hgb Hct MCV MCH RDW Plt Count Lymph % (Auto) Lymph # Baso # Seg Neutrophils % Seg Neuts % (Manual) Lymphocytes % (Manual) Nucleated RBC % Seg Neutrophils # Seg Neutrophils # Man Lymphocytes # (Manual) Monocytes # (Manual) D-Dimer Heparin Anti-Xa Level Sodium 134 L Potassium 3.5 L Chloride 94.7 L Carbon Dioxide BUN 30 H Creatinine 8.8 H Glucose 182 H POC Glucose 170 H 145 H Lactic Acid Calcium 7.9 L ALT Troponin T C-Reactive Protein Albumin Triglycerides HDL Cholesterol Vitamin B12 Folate 06/30/18 06/30/18 07/01/18 16:44 22:06 07:21 WBC 11.8 H RBC 3.32 L Hgb Hct MCV 105 H MCH 35 H RDW 15.5 H Plt Count 125 L Lymph % (Auto) Lymph # Baso # Seg Neutrophils % Seg Neuts % (Manual) Lymphocytes % (Manual) Nucleated RBC % Seg Neutrophils # Seg Neutrophils # Man Lymphocytes # (Manual) Monocytes # (Manual) D-Dimer Heparin Anti-Xa Level Sodium Potassium Chloride Carbon Dioxide BUN Creatinine Glucose POC Glucose 155 H 174 H Lactic Acid Calcium ALT Troponin T C-Reactive Protein Albumin Triglycerides HDL Cholesterol Vitamin B12 Folate 07/01/18 07/01/18 07/01/18 07:21 08:22 11:38 WBC RBC Hgb Hct MCV MCH RDW Plt Count Lymph % (Auto) Lymph # Baso # Seg Neutrophils % Seg Neuts % (Manual) Lymphocytes % (Manual) Nucleated RBC % Seg Neutrophils # Seg Neutrophils # Man Lymphocytes # (Manual) Monocytes # (Manual) D-Dimer Heparin Anti-Xa Level Sodium 134 L Potassium Chloride 95.9 L Carbon Dioxide BUN 31 H Creatinine 8.4 H Glucose 151 H POC Glucose 117 H 166 H Lactic Acid Calcium 7.8 L ALT Troponin T C-Reactive Protein Albumin Triglycerides HDL Cholesterol Vitamin B12 Folate 07/01/18 07/01/18 07/01/18 13:32 13:32 16:27 WBC RBC Hgb Hct MCV MCH RDW Plt Count Lymph % (Auto) Lymph # Baso # Seg Neutrophils % Seg Neuts % (Manual) Lymphocytes % (Manual) Nucleated RBC % Seg Neutrophils # Seg Neutrophils # Man Lymphocytes # (Manual) Monocytes # (Manual) D-Dimer Heparin Anti-Xa Level Sodium Potassium Chloride Carbon Dioxide BUN Creatinine Glucose POC Glucose 149 H Lactic Acid 2.20 H* Calcium ALT Troponin T C-Reactive Protein 7.40 H Albumin Triglycerides HDL Cholesterol Vitamin B12 Folate 07/01/18 07/01/18 07/02/18 19:35 21:36 05:22 WBC RBC Hgb Hct MCV MCH RDW Plt Count Lymph % (Auto) Lymph # Baso # Seg Neutrophils % Seg Neuts % (Manual) Lymphocytes % (Manual) Nucleated RBC % Seg Neutrophils # Seg Neutrophils # Man Lymphocytes # (Manual) Monocytes # (Manual) D-Dimer Heparin Anti-Xa Level Sodium Potassium Chloride Carbon Dioxide BUN Creatinine Glucose POC Glucose 129 H Lactic Acid 2.60 H* 2.20 H* Calcium ALT Troponin T C-Reactive Protein Albumin Triglycerides HDL Cholesterol Vitamin B12 Folate 07/02/18 07/02/18 07/02/18 05:22 05:22 07:11 WBC 12.6 H RBC 3.51 L Hgb Hct MCV 105 H MCH 35 H RDW Plt Count 132 L Lymph % (Auto) Lymph # Baso # Seg Neutrophils % Seg Neuts % (Manual) 92.0 H Lymphocytes % (Manual) 2.0 L Nucleated RBC % Seg Neutrophils # Seg Neutrophils # Man 11.6 H Lymphocytes # (Manual) 0.3 L Monocytes # (Manual) D-Dimer Heparin Anti-Xa Level Sodium 131 L Potassium 3.3 L Chloride 93.1 L Carbon Dioxide BUN 31 H Creatinine 7.5 H Glucose 228 H POC Glucose 215 H Lactic Acid Calcium 7.7 L ALT Troponin T C-Reactive Protein Albumin Triglycerides HDL Cholesterol Vitamin B12 Folate 07/02/18 07/02/18 07/03/18 15:35 21:56 10:56 WBC RBC Hgb Hct MCV MCH RDW Plt Count Lymph % (Auto) Lymph # Baso # Seg Neutrophils % Seg Neuts % (Manual) Lymphocytes % (Manual) Nucleated RBC % Seg Neutrophils # Seg Neutrophils # Man Lymphocytes # (Manual) Monocytes # (Manual) D-Dimer Heparin Anti-Xa Level Sodium 130 L Potassium Chloride 91.6 L Carbon Dioxide BUN 33 H Creatinine 7.8 H Glucose POC Glucose 123 H 135 H Lactic Acid Calcium 7.7 L ALT Troponin T C-Reactive Protein Albumin Triglycerides HDL Cholesterol Vitamin B12 Folate 07/03/18 07/03/18 07/03/18 11:00 21:03 22:06 WBC 11.9 H RBC 3.59 L Hgb Hct MCV 103 H MCH 35 H RDW Plt Count Lymph % (Auto) Lymph # Baso # Seg Neutrophils % Seg Neuts % (Manual) 94.0 H Lymphocytes % (Manual) 5.0 L Nucleated RBC % Seg Neutrophils # Seg Neutrophils # Man 11.2 H Lymphocytes # (Manual) 0.6 L Monocytes # (Manual) D-Dimer Heparin Anti-Xa Level 0.28 L Sodium Potassium Chloride Carbon Dioxide BUN Creatinine Glucose POC Glucose 177 H Lactic Acid Calcium ALT Troponin T C-Reactive Protein Albumin Triglycerides HDL Cholesterol Vitamin B12 Folate 07/04/18 07/04/18 07/04/18 01:08 05:22 05:22 WBC 13.1 H RBC Hgb Hct MCV 104 H MCH 35 H RDW Plt Count 139 L Lymph % (Auto) 5.0 L Lymph # 0.7 L Baso # 0.2 H Seg Neutrophils % 87.7 H Seg Neuts % (Manual) Lymphocytes % (Manual) Nucleated RBC % Seg Neutrophils # 11.5 H Seg Neutrophils # Man Lymphocytes # (Manual) Monocytes # (Manual) D-Dimer Heparin Anti-Xa Level Sodium 132 L Potassium 3.1 L Chloride 92.4 L Carbon Dioxide BUN 30 H Creatinine 7.4 H Glucose 113 H POC Glucose 106 H Lactic Acid Calcium 7.8 L ALT Troponin T C-Reactive Protein Albumin Triglycerides HDL Cholesterol Vitamin B12 Folate 07/04/18 07/04/18 07/04/18 05:22 12:15 14:59 WBC RBC Hgb Hct MCV MCH RDW Plt Count Lymph % (Auto) Lymph # Baso # Seg Neutrophils % Seg Neuts % (Manual) Lymphocytes % (Manual) Nucleated RBC % Seg Neutrophils # Seg Neutrophils # Man Lymphocytes # (Manual) Monocytes # (Manual) D-Dimer Heparin Anti-Xa Level 1.31 H 1.70 H Sodium Potassium Chloride Carbon Dioxide BUN Creatinine Glucose POC Glucose 200 H Lactic Acid Calcium ALT Troponin T C-Reactive Protein Albumin Triglycerides HDL Cholesterol Vitamin B12 Folate 07/04/18 07/05/18 07/05/18 20:56 06:17 06:17 WBC RBC 3.51 L Hgb Hct MCV 104 H MCH 35 H RDW Plt Count Lymph % (Auto) 7.8 L Lymph # 0.7 L Baso # Seg Neutrophils % 85.2 H Seg Neuts % (Manual) Lymphocytes % (Manual) Nucleated RBC % Seg Neutrophils # Seg Neutrophils # Man Lymphocytes # (Manual) Monocytes # (Manual) D-Dimer Heparin Anti-Xa Level Sodium 132 L Potassium 3.1 L Chloride 92.7 L Carbon Dioxide BUN 29 H Creatinine 7.3 H Glucose 115 H POC Glucose 133 H Lactic Acid Calcium 7.9 L ALT Troponin T C-Reactive Protein Albumin Triglycerides HDL Cholesterol Vitamin B12 Folate 07/05/18 07/06/18 07/06/18 23:47 06:53 06:53 WBC RBC 3.47 L Hgb Hct MCV 104 H MCH 35 H RDW Plt Count Lymph % (Auto) Lymph # Baso # Seg Neutrophils % Seg Neuts % (Manual) 93.0 H Lymphocytes % (Manual) 2.0 L Nucleated RBC % Seg Neutrophils # Seg Neutrophils # Man 8.6 H Lymphocytes # (Manual) 0.2 L Monocytes # (Manual) D-Dimer Heparin Anti-Xa Level Sodium 132 L Potassium 3.2 L Chloride 94.5 L Carbon Dioxide BUN 32 H Creatinine 8.7 H Glucose 106 H POC Glucose 112 H Lactic Acid Calcium 7.8 L ALT Troponin T C-Reactive Protein Albumin Triglycerides HDL Cholesterol Vitamin B12 Folate 07/06/18 07/06/18 07/07/18 16:23 22:56 07:56 WBC RBC Hgb Hct MCV MCH RDW Plt Count Lymph % (Auto) Lymph # Baso # Seg Neutrophils % Seg Neuts % (Manual) Lymphocytes % (Manual) Nucleated RBC % Seg Neutrophils # Seg Neutrophils # Man Lymphocytes # (Manual) Monocytes # (Manual) D-Dimer Heparin Anti-Xa Level Sodium Potassium Chloride Carbon Dioxide BUN Creatinine Glucose POC Glucose 126 H 139 H 181 H Lactic Acid Calcium ALT Troponin T C-Reactive Protein Albumin Triglycerides HDL Cholesterol Vitamin B12 Folate 07/07/18 07/07/18 07/07/18 09:35 09:35 12:52 WBC RBC Hgb Hct MCV 105 H MCH 35 H RDW Plt Count Lymph % (Auto) 6.3 L Lymph # 0.6 L Baso # Seg Neutrophils % 87.9 H Seg Neuts % (Manual) Lymphocytes % (Manual) Nucleated RBC % Seg Neutrophils # 8.2 H Seg Neutrophils # Man Lymphocytes # (Manual) Monocytes # (Manual) D-Dimer Heparin Anti-Xa Level Sodium 130 L Potassium 3.4 L Chloride 90.3 L Carbon Dioxide BUN 29 H Creatinine 8.0 H Glucose 201 H POC Glucose 161 H Lactic Acid Calcium 8.0 L ALT Troponin T C-Reactive Protein Albumin Triglycerides HDL Cholesterol Vitamin B12 Folate 07/07/18 07/08/18 07/08/18 21:56 05:19 05:19 WBC 12.7 H RBC Hgb Hct MCV 104 H MCH 35 H RDW Plt Count Lymph % (Auto) Lymph # Baso # Seg Neutrophils % Seg Neuts % (Manual) 92.0 H Lymphocytes % (Manual) 5.0 L Nucleated RBC % 1.0 H Seg Neutrophils # Seg Neutrophils # Man 11.7 H Lymphocytes # (Manual) 0.6 L Monocytes # (Manual) D-Dimer Heparin Anti-Xa Level Sodium 134 L Potassium 3.4 L Chloride 93.6 L Carbon Dioxide BUN 30 H Creatinine 8.0 H Glucose 184 H POC Glucose 162 H Lactic Acid Calcium ALT Troponin T C-Reactive Protein Albumin Triglycerides HDL Cholesterol Vitamin B12 Folate 07/08/18 07/08/18 07/08/18 05:19 05:19 08:25 WBC RBC Hgb Hct MCV MCH RDW Plt Count Lymph % (Auto) Lymph # Baso # Seg Neutrophils % Seg Neuts % (Manual) Lymphocytes % (Manual) Nucleated RBC % Seg Neutrophils # Seg Neutrophils # Man Lymphocytes # (Manual) Monocytes # (Manual) D-Dimer Heparin Anti-Xa Level Sodium Potassium Chloride Carbon Dioxide BUN Creatinine Glucose POC Glucose 200 H Lactic Acid Calcium ALT Troponin T C-Reactive Protein Albumin Triglycerides HDL Cholesterol Vitamin B12 1416 H Folate 2.39 L 07/08/18 07/08/18 07/08/18 11:48 16:14 21:53 WBC RBC Hgb Hct MCV MCH RDW Plt Count Lymph % (Auto) Lymph # Baso # Seg Neutrophils % Seg Neuts % (Manual) Lymphocytes % (Manual) Nucleated RBC % Seg Neutrophils # Seg Neutrophils # Man Lymphocytes # (Manual) Monocytes # (Manual) D-Dimer Heparin Anti-Xa Level Sodium Potassium Chloride Carbon Dioxide BUN Creatinine Glucose POC Glucose 202 H 176 H 219 H Lactic Acid Calcium ALT Troponin T C-Reactive Protein Albumin Triglycerides HDL Cholesterol Vitamin B12 Folate 07/09/18 07/09/18 07/09/18 07:50 09:51 09:51 WBC 15.8 H RBC Hgb Hct 43.4 H MCV 105 H MCH 34 H RDW Plt Count Lymph % (Auto) Lymph # Baso # Seg Neutrophils % Seg Neuts % (Manual) 94.0 H Lymphocytes % (Manual) 3.0 L Nucleated RBC % 1.0 H Seg Neutrophils # Seg Neutrophils # Man 14.9 H Lymphocytes # (Manual) 0.5 L Monocytes # (Manual) D-Dimer Heparin Anti-Xa Level Sodium 135 L Potassium Chloride 95.5 L Carbon Dioxide BUN 29 H Creatinine 8.4 H Glucose 204 H POC Glucose 163 H Lactic Acid Calcium ALT Troponin T C-Reactive Protein Albumin Triglycerides HDL Cholesterol Vitamin B12 Folate 07/09/18 07/09/18 07/09/18 11:50 18:47 22:16 WBC RBC Hgb Hct MCV MCH RDW Plt Count Lymph % (Auto) Lymph # Baso # Seg Neutrophils % Seg Neuts % (Manual) Lymphocytes % (Manual) Nucleated RBC % Seg Neutrophils # Seg Neutrophils # Man Lymphocytes # (Manual) Monocytes # (Manual) D-Dimer Heparin Anti-Xa Level Sodium Potassium Chloride Carbon Dioxide BUN Creatinine Glucose POC Glucose 156 H 176 H 189 H Lactic Acid Calcium ALT Troponin T C-Reactive Protein Albumin Triglycerides HDL Cholesterol Vitamin B12 Folate 07/10/18 07/10/18 07/10/18 05:35 08:22 08:52 WBC 17.9 H RBC Hgb Hct MCV 105 H MCH 34 H RDW Plt Count Lymph % (Auto) Lymph # Baso # Seg Neutrophils % Seg Neuts % (Manual) 87.0 H Lymphocytes % (Manual) 6.0 L Nucleated RBC % Seg Neutrophils # Seg Neutrophils # Man 15.6 H Lymphocytes # (Manual) 1.1 L Monocytes # (Manual) 1.1 H D-Dimer Heparin Anti-Xa Level Sodium 135 L Potassium Chloride 92.8 L Carbon Dioxide BUN 27 H Creatinine 7.5 H Glucose 175 H POC Glucose 129 H Lactic Acid Calcium ALT Troponin T C-Reactive Protein Albumin Triglycerides HDL Cholesterol Vitamin B12 Folate 07/10/18 07/10/18 07/10/18 11:47 18:22 21:32 WBC RBC Hgb Hct MCV MCH RDW Plt Count Lymph % (Auto) Lymph # Baso # Seg Neutrophils % Seg Neuts % (Manual) Lymphocytes % (Manual) Nucleated RBC % Seg Neutrophils # Seg Neutrophils # Man Lymphocytes # (Manual) Monocytes # (Manual) D-Dimer Heparin Anti-Xa Level Sodium Potassium Chloride Carbon Dioxide BUN Creatinine Glucose POC Glucose 189 H 211 H 306 H Lactic Acid Calcium ALT Troponin T C-Reactive Protein Albumin Triglycerides HDL Cholesterol Vitamin B12 Folate 07/11/18 07/11/18 07/11/18 04:10 07:36 11:49 WBC 19.4 H RBC Hgb Hct MCV 107 H MCH 35 H RDW 15.3 H Plt Count Lymph % (Auto) Lymph # Baso # Seg Neutrophils % Seg Neuts % (Manual) 89.0 H Lymphocytes % (Manual) 4.0 L Nucleated RBC % Seg Neutrophils # Seg Neutrophils # Man 17.3 H Lymphocytes # (Manual) 0.8 L Monocytes # (Manual) D-Dimer Heparin Anti-Xa Level Sodium Potassium Chloride Carbon Dioxide BUN Creatinine Glucose POC Glucose 113 H 123 H Lactic Acid Calcium ALT Troponin T C-Reactive Protein Albumin Triglycerides HDL Cholesterol Vitamin B12 Folate 07/11/18 07/11/18 07/12/18 17:35 23:28 00:48 WBC 17.0 H RBC Hgb Hct MCV 106 H MCH 35 H RDW Plt Count Lymph % (Auto) Lymph # Baso # Seg Neutrophils % Seg Neuts % (Manual) 92.0 H Lymphocytes % (Manual) 3.0 L Nucleated RBC % Seg Neutrophils # Seg Neutrophils # Man 15.6 H Lymphocytes # (Manual) 0.5 L Monocytes # (Manual) 0.9 H D-Dimer Heparin Anti-Xa Level Sodium Potassium Chloride Carbon Dioxide BUN Creatinine Glucose POC Glucose 207 H 188 H Lactic Acid Calcium ALT Troponin T C-Reactive Protein Albumin Triglycerides HDL Cholesterol Vitamin B12 Folate 07/12/18 07/12/18 07/12/18 04:05 09:21 12:05 WBC RBC Hgb Hct MCV MCH RDW Plt Count Lymph % (Auto) Lymph # Baso # Seg Neutrophils % Seg Neuts % (Manual) Lymphocytes % (Manual) Nucleated RBC % Seg Neutrophils # Seg Neutrophils # Man Lymphocytes # (Manual) Monocytes # (Manual) D-Dimer Heparin Anti-Xa Level Sodium Potassium Chloride Carbon Dioxide BUN Creatinine Glucose POC Glucose 147 H 125 H 113 H Lactic Acid Calcium ALT Troponin T C-Reactive Protein Albumin Triglycerides HDL Cholesterol Vitamin B12 Folate 07/12/18 07/13/18 07/13/18 22:25 05:28 05:28 WBC 15.5 H RBC 3.62 L Hgb Hct MCV 105 H MCH 34 H RDW Plt Count Lymph % (Auto) Lymph # Baso # Seg Neutrophils % Seg Neuts % (Manual) 99.0 H Lymphocytes % (Manual) 1.0 L Nucleated RBC % Seg Neutrophils # Seg Neutrophils # Man 15.3 H Lymphocytes # (Manual) 0.2 L Monocytes # (Manual) D-Dimer Heparin Anti-Xa Level Sodium 133 L Potassium Chloride 95.0 L Carbon Dioxide BUN 43 H Creatinine 9.1 H Glucose 124 H POC Glucose 162 H Lactic Acid Calcium 8.0 L ALT Troponin T C-Reactive Protein Albumin Triglycerides HDL Cholesterol Vitamin B12 Folate 07/13/18 07/13/18 07/13/18 07:59 11:40 16:41 WBC RBC Hgb Hct MCV MCH RDW Plt Count Lymph % (Auto) Lymph # Baso # Seg Neutrophils % Seg Neuts % (Manual) Lymphocytes % (Manual) Nucleated RBC % Seg Neutrophils # Seg Neutrophils # Man Lymphocytes # (Manual) Monocytes # (Manual) D-Dimer Heparin Anti-Xa Level Sodium Potassium Chloride Carbon Dioxide BUN Creatinine Glucose POC Glucose 191 H 195 H 204 H Lactic Acid Calcium ALT Troponin T C-Reactive Protein Albumin Triglycerides HDL Cholesterol Vitamin B12 Folate 07/13/18 07/14/18 07/14/18 22:38 04:15 04:15 WBC 13.1 H RBC Hgb Hct MCV 107 H MCH 34 H RDW Plt Count Lymph % (Auto) Lymph # Baso # Seg Neutrophils % Seg Neuts % (Manual) 89.0 H Lymphocytes % (Manual) 6.0 L Nucleated RBC % Seg Neutrophils # Seg Neutrophils # Man 11.7 H Lymphocytes # (Manual) 0.8 L Monocytes # (Manual) D-Dimer Heparin Anti-Xa Level Sodium 136 L Potassium Chloride 95.3 L Carbon Dioxide BUN 40 H Creatinine 8.1 H Glucose POC Glucose 190 H Lactic Acid Calcium ALT Troponin T C-Reactive Protein Albumin Triglycerides HDL Cholesterol Vitamin B12 Folate 07/14/18 07/14/18 07/14/18 07:57 12:18 17:24 WBC RBC Hgb Hct MCV MCH RDW Plt Count Lymph % (Auto) Lymph # Baso # Seg Neutrophils % Seg Neuts % (Manual) Lymphocytes % (Manual) Nucleated RBC % Seg Neutrophils # Seg Neutrophils # Man Lymphocytes # (Manual) Monocytes # (Manual) D-Dimer Heparin Anti-Xa Level Sodium Potassium Chloride Carbon Dioxide BUN Creatinine Glucose POC Glucose 205 H 180 H 249 H Lactic Acid Calcium ALT Troponin T C-Reactive Protein Albumin Triglycerides HDL Cholesterol Vitamin B12 Folate 07/14/18 07/15/18 07/15/18 22:19 06:42 06:42 WBC 11.9 H RBC Hgb Hct MCV 105 H MCH 34 H RDW Plt Count Lymph % (Auto) 6.4 L Lymph # 0.8 L Baso # Seg Neutrophils % 89.6 H Seg Neuts % (Manual) Lymphocytes % (Manual) Nucleated RBC % Seg Neutrophils # 10.6 H Seg Neutrophils # Man Lymphocytes # (Manual) Monocytes # (Manual) D-Dimer Heparin Anti-Xa Level Sodium 131 L Potassium 3.5 L Chloride 94.3 L Carbon Dioxide BUN 36 H Creatinine 7.0 H Glucose 166 H POC Glucose 156 H Lactic Acid Calcium 8.1 L ALT Troponin T C-Reactive Protein Albumin Triglycerides HDL Cholesterol Vitamin B12 Folate 07/15/18 07/15/18 07/15/18 08:12 11:46 15:44 WBC RBC Hgb Hct MCV MCH RDW Plt Count Lymph % (Auto) Lymph # Baso # Seg Neutrophils % Seg Neuts % (Manual) Lymphocytes % (Manual) Nucleated RBC % Seg Neutrophils # Seg Neutrophils # Man Lymphocytes # (Manual) Monocytes # (Manual) D-Dimer Heparin Anti-Xa Level Sodium Potassium Chloride Carbon Dioxide BUN Creatinine Glucose POC Glucose 187 H 201 H 169 H Lactic Acid Calcium ALT Troponin T C-Reactive Protein Albumin Triglycerides HDL Cholesterol Vitamin B12 Folate 07/15/18 07/16/18 07/16/18 23:09 00:22 01:52 WBC RBC Hgb Hct MCV MCH RDW Plt Count Lymph % (Auto) Lymph # Baso # Seg Neutrophils % Seg Neuts % (Manual) Lymphocytes % (Manual) Nucleated RBC % Seg Neutrophils # Seg Neutrophils # Man Lymphocytes # (Manual) Monocytes # (Manual) D-Dimer Heparin Anti-Xa Level Sodium Potassium Chloride Carbon Dioxide BUN Creatinine Glucose 234 H POC Glucose < 40 L 203 H Lactic Acid Calcium ALT Troponin T C-Reactive Protein Albumin Triglycerides HDL Cholesterol Vitamin B12 Folate 07/16/18 07/16/18 07/16/18 04:22 05:12 05:12 WBC 14.0 H RBC 3.58 L Hgb Hct MCV 106 H MCH 34 H RDW Plt Count Lymph % (Auto) Lymph # Baso # Seg Neutrophils % Seg Neuts % (Manual) 92.0 H Lymphocytes % (Manual) 4.0 L Nucleated RBC % Seg Neutrophils # Seg Neutrophils # Man 12.9 H Lymphocytes # (Manual) 0.6 L Monocytes # (Manual) D-Dimer Heparin Anti-Xa Level Sodium 130 L Potassium 2.9 L* Chloride 92.9 L Carbon Dioxide BUN 38 H Creatinine 6.8 H Glucose 194 H POC Glucose 194 H Lactic Acid Calcium ALT Troponin T C-Reactive Protein Albumin Triglycerides HDL Cholesterol Vitamin B12 Folate 07/16/18 07/16/18 07/16/18 08:45 12:22 16:42 WBC RBC Hgb Hct MCV MCH RDW Plt Count Lymph % (Auto) Lymph # Baso # Seg Neutrophils % Seg Neuts % (Manual) Lymphocytes % (Manual) Nucleated RBC % Seg Neutrophils # Seg Neutrophils # Man Lymphocytes # (Manual) Monocytes # (Manual) D-Dimer Heparin Anti-Xa Level Sodium Potassium Chloride Carbon Dioxide BUN Creatinine Glucose POC Glucose 155 H 208 H 143 H Lactic Acid Calcium ALT Troponin T C-Reactive Protein Albumin Triglycerides HDL Cholesterol Vitamin B12 Folate 07/16/18 07/17/18 07/18/18 22:02 04:32 00:56 WBC 13.9 H RBC 3.43 L Hgb Hct MCV 106 H MCH 35 H RDW 15.6 H Plt Count Lymph % (Auto) Lymph # Baso # Seg Neutrophils % Seg Neuts % (Manual) 88.0 H Lymphocytes % (Manual) 2.0 L Nucleated RBC % Seg Neutrophils # Seg Neutrophils # Man 12.2 H Lymphocytes # (Manual) 0.3 L Monocytes # (Manual) D-Dimer Heparin Anti-Xa Level Sodium 131 L Potassium Chloride 93.6 L Carbon Dioxide BUN 45 H Creatinine 7.2 H Glucose POC Glucose 115 H Lactic Acid Calcium ALT Troponin T C-Reactive Protein Albumin Triglycerides HDL Cholesterol Vitamin B12 Folate 07/18/18 07/18/18 07/18/18 04:23 16:08 18:24 WBC RBC Hgb Hct MCV MCH RDW Plt Count Lymph % (Auto) Lymph # Baso # Seg Neutrophils % Seg Neuts % (Manual) Lymphocytes % (Manual) Nucleated RBC % Seg Neutrophils # Seg Neutrophils # Man Lymphocytes # (Manual) Monocytes # (Manual) D-Dimer Heparin Anti-Xa Level Sodium Potassium Chloride Carbon Dioxide BUN 22 H Creatinine 4.9 H Glucose 60 L POC Glucose 62 L 116 H Lactic Acid Calcium 7.5 L ALT Troponin T C-Reactive Protein Albumin Triglycerides HDL Cholesterol Vitamin B12 Folate 07/18/18 07/19/18 07/19/18 21:55 11:15 13:04 WBC 13.3 H RBC 3.40 L Hgb Hct MCV 108 H MCH 34 H RDW 16.1 H Plt Count Lymph % (Auto) Lymph # Baso # Seg Neutrophils % Seg Neuts % (Manual) 97.0 H Lymphocytes % (Manual) 1.0 L Nucleated RBC % Seg Neutrophils # Seg Neutrophils # Man 12.9 H Lymphocytes # (Manual) 0.1 L Monocytes # (Manual) D-Dimer Heparin Anti-Xa Level Sodium Potassium Chloride Carbon Dioxide BUN Creatinine Glucose POC Glucose 114 H 109 H Lactic Acid Calcium ALT Troponin T C-Reactive Protein Albumin Triglycerides HDL Cholesterol Vitamin B12 Folate 07/19/18 07/19/18 07/20/18 22:18 23:41 07:18 WBC RBC Hgb Hct MCV MCH RDW Plt Count Lymph % (Auto) Lymph # Baso # Seg Neutrophils % Seg Neuts % (Manual) Lymphocytes % (Manual) Nucleated RBC % Seg Neutrophils # Seg Neutrophils # Man Lymphocytes # (Manual) Monocytes # (Manual) D-Dimer Heparin Anti-Xa Level Sodium Potassium Chloride Carbon Dioxide BUN Creatinine Glucose POC Glucose 52 L 132 H 108 H Lactic Acid Calcium ALT Troponin T C-Reactive Protein Albumin Triglycerides HDL Cholesterol Vitamin B12 Folate 07/20/18 07/20/18 07/20/18 12:07 16:48 21:52 WBC RBC Hgb Hct MCV MCH RDW Plt Count Lymph % (Auto) Lymph # Baso # Seg Neutrophils % Seg Neuts % (Manual) Lymphocytes % (Manual) Nucleated RBC % Seg Neutrophils # Seg Neutrophils # Man Lymphocytes # (Manual) Monocytes # (Manual) D-Dimer Heparin Anti-Xa Level Sodium Potassium Chloride Carbon Dioxide BUN Creatinine Glucose POC Glucose 120 H 151 H 146 H Lactic Acid Calcium ALT Troponin T C-Reactive Protein Albumin Triglycerides HDL Cholesterol Vitamin B12 Folate 07/21/18 07:37 WBC RBC Hgb Hct MCV MCH RDW Plt Count Lymph % (Auto) Lymph # Baso # Seg Neutrophils % Seg Neuts % (Manual) Lymphocytes % (Manual) Nucleated RBC % Seg Neutrophils # Seg Neutrophils # Man Lymphocytes # (Manual) Monocytes # (Manual) D-Dimer Heparin Anti-Xa Level Sodium Potassium Chloride Carbon Dioxide BUN Creatinine Glucose POC Glucose 67 L Lactic Acid Calcium ALT Troponin T C-Reactive Protein Albumin Triglycerides HDL Cholesterol Vitamin B12 Folate Allied health notes reviewed: nursing
--- NOTE | 2018-07-21 17:26 | Progress Note ---
Subjective Principal diagnosis: dvt leg Interval history: Patient was seen today for follow-up on multiple renal related issues Events of this hospitalization noted She has been placed on hemodialysis changed from PD Patient denies having any chest pain pressure or shortness of breath Vitals labs intake output medications were reviewed Social history: Reviewed Allergies: Reviewed Family history: Reviewed Physical examination HEENT: Oral mucosa moist no pallor or icterus Neck: Supple no JVD Chest: Clear to auscultation anteriorly CVS: Regular rate and rhythm S1 and S2 heard Abdomen: Soft nontender no suprapubic masses no organomegaly appreciable Extremity: Dry skin less than 1+ peripheral edema Musculoskeletal: No joint effusion noted in knees and ankle Neurological: Alert awake Dermatology: No petechial rashes Psychiatry: No evidence of any agitation and aggression noted Assessment and plan Blood pressure borderline low patient is on midodrine 10 mg 3 times a day, has been empirically placed on hydrocortisone also currently on fludrocortisone Secondary hyperparathyroidism: Currently on calcitriol as well as Renvela Has had peritonitis with micrococcus status post peritoneal dialysis catheter re moval Abnormal troponin with normal ejection fraction 55% likely due to end-stage renal disease status patient will need to follow-up with cardiology Patient in my opinion will need to be empirically tried on prednisone 10 mg once a day, to make sure there is no underlying renal insufficiency will also check cortisol level in the meantime Patient was adequately counseled and educated regarding multiple renal related issues Pertinent lab findings were discussed with patient, patient does exhibit good understanding of renal issues We'll continue to follow and make recommendation from renal standpoint Objective - Vital Signs Vital signs: Vital Signs - 12hr 07/21/18 07/21/18 07/21/18 07:20 07:21 09:55 Temperature 97.8 F Pulse Rate 73 Pulse Rate [ 103 H From Monitor] Respiratory 18 18 Rate Blood Pressure 101/54 Blood Pressure [Left] O2 Sat by Pulse 98 100 Oximetry 07/21/18 14:00 Temperature 98.4 F Pulse Rate 84 Pulse Rate [ From Monitor] Respiratory 20 Rate Blood Pressure Blood Pressure 98/56 [Left] O2 Sat by Pulse 99 Oximetry - Lab 07/19/18 13:04 07/18/18 04:23 Most recent lab results Calcium 7.5 mg/dL (8.4-10.2) L 07/18/18 04:23 Medications & Allergies - Medications Allergies/Adverse Reactions: Allergies No Known Allergies Allergy (Verified 08/18/14 08:52) Home Medications: Home Medications Medication Instructions Recorded Confirmed Last Taken Type Calcitriol [Rocaltrol] 0.5 mcg PO QDAY 06/29/18 06/29/18 Unknown History Simvastatin [Zocor] 20 mg PO DAILY 06/29/18 06/29/18 Unknown History Apixaban [Eliquis] 5 mg PO Q12HR tablet 07/15/18 Unknown Rx Aspirin [Aspirin BABY CHEW TAB] 81 mg PO QDAY tab.chew 07/15/18 Unknown Rx AtorvaSTATin [Lipitor] 40 mg PO QHS tablet 07/15/18 Unknown Rx Cefepime/Ns 1 gm/100 ml 1 gm IV Q24HR 21 Days piggyback 07/15/18 Unknown Rx [Maxipime/Ns 1 gm/100 ml] Docusate Sodium [Colace CAP] 100 mg PO BID capsule 07/15/18 Unknown Rx Fludrocortisone [Florinef] 0.1 mg PO QDAY tablet 07/15/18 Unknown Rx Folic Acid [Folvite] 1 mg PO QDAY tablet 07/15/18 Unknown Rx Lactulose [Cephulac] 20 gm PO TID PRN oral.liqd 07/15/18 Unknown Rx Lispro Insulin [Humalog] 0 unit SUB-Q ACHS units 07/15/18 Unknown Rx Midodrine [Proamatine] 10 mg PO TID tablet 07/15/18 Unknown Rx Pantoprazole [Protonix TAB] 40 mg PO QDAY tablet 07/15/18 Unknown Rx Polyethylene Glycol 3350 [Miralax 17 gm PO QDAY powd.pack 07/15/18 Unknown Rx 3350] Sevelamer Carbonate [Renvela] 1,600 mg PO TIDWM tablet 07/15/18 Unknown Rx Active Medications: Generic Name Dose Route Start Last Admin Trade Name Freq PRN Reason Stop Dose Admin Acetaminophen 650 mg 07/15/18 12:55 07/15/18 13:53 Tylenol PO 650 mg Q4H PRN Administration Pain, Mild (1-3) Apixaban 5 mg 07/18/18 22:00 07/21/18 11:08 Eliquis PO 5 mg Q12HR DIANE Administration Protocol Aspirin 81 mg 06/29/18 13:00 07/21/18 11:08 Baby Aspirin PO 81 mg QDAY DIANE Administration Atorvastatin Calcium 40 mg 06/29/18 22:00 07/20/18 21:03 Lipitor PO 40 mg QHS DIANE Administration Calcitriol 0.5 mcg 06/29/18 13:00 07/21/18 11:09 Rocaltrol PO 0.5 mcg QDAY DIANE Administration Docusate Sodium 100 mg 07/02/18 10:00 07/21/18 11:07 Colace PO 100 mg BID DIANE Administration Fludrocortisone Acetate 0.1 mg 07/15/18 14:00 07/21/18 11:07 Florinef PO 0.1 mg QDAY DIANE Administration Folic Acid 1 mg 07/10/18 14:00 07/21/18 11:08 Folvite PO 1 mg QDAY DIANE Administration Heparin Sodium (Porcine) 5,000 unit 07/16/18 18:52 Heparin IV THOMAS PRN hemodialysis Hydrocortisone Acetate 20 mg 07/20/18 11:30 07/21/18 11:07 Cortef PO 07/24/18 10:01 20 mg QDAY DIANE Administration Sodium Chloride 100 mls @ 999 mls/hr 07/16/18 18:52 Nacl 0.9% IV THOMAS PRN Hypotension Cefepime HCl 1 gm in 100 mls @ 200 mls/hr 07/16/18 22:00 07/20/18 21:32 Maxipime/Ns 1 Gm/100 Ml IV 08/01/18 23:59 Infused QHS DIANE Infusion Protocol Vancomycin HCl 1 gm in 250 mls @ 167.007 mls/hr 07/17/18 18:00 07/19/18 19:52 Vancomycin/Ns 1 Gm/250 Ml IV 08/01/18 23:59 Infused [id number] DIANE Infusion Sodium Chloride 1,000 mls @ 42 mls/hr 07/18/18 14:00 07/18/18 14:10 Nacl 0.9% 1000 Ml IV 42 mls/hr DIRECT DIANE Administration Insulin Human Lispro 0 unit 06/29/18 22:00 07/21/18 17:19 Humalog SUB-Q Not Given ACHS [facility] Protocol Lactulose 20 gm 07/13/18 12:00 Cephulac PO TID PRN Constipation Midodrine 10 mg 07/01/18 14:00 07/21/18 15:21 Proamatine PO 10 mg TID DIANE Administration Morphine Sulfate 2 mg 07/08/18 14:51 07/21/18 03:53 Morphine IV 2 mg Q4H PRN Administration Pain, Moderate (4-6) Pantoprazole Sodium 40 mg 07/08/18 10:00 07/21/18 11:09 Protonix PO 40 mg QDAY DIANE Administration Polyethylene Glycol 17 gm 07/02/18 10:00 07/21/18 11:08 Miralax 3350 PO 17 gm QDAY DIANE Administration Sevelamer Carbonate 1,600 mg 06/29/18 12:00 07/21/18 11:08 Renvela PO 1,600 mg TIDWM DIANE Administration
[2018-07-21] MEDS: MAXIPIME/NS 1 GM/100 ML 1 GM/100 ML BAG IV SCH (21:13)
[2018-07-22] MEDS: MORPHINE IV PRN ×3 (05:21→15:41)
[2018-07-22] MEDS: HumaLOG SUB-Q SCH ×5 (05:24→22:56)
[2018-07-22] MEDS: RENVELA PO SCH ×3 (07:26→16:14)
[2018-07-22] MEDS: PROAMATINE PO SCH ×3 (07:33→20:49)
[2018-07-22 07:47] LABS: Hematocrit 35.1 % (30.3-42.9); Hemoglobin 11.1 gm/dl (10.1-14.3); Mean Corpuscular HGB Conc 32 % (30-34); Mean Corpuscular Volume 108 fl (79-97); Platelet Count 190 K/mm3 (140-440); Red Blood Count 3.26 M/mm3 (3.65-5.03); Red Cell Distribution Width 16.4 % (13.2-15.2)
--- NOTE | 2018-07-22 07:58 | Hem/Onc Progress Note ---
Assessment and Plan 1. Left leg deep venous thrombosis. The patient was on heparin drip. The patient is on peritoneal dialysis. The dose of Eliquis or any direct thrombin inhibitors or other anticoagulation monitoring may become challenging. 2. MCV elevated. We will follow - low folate - on Rx. 3. Elevated D-dimers. - DVT - Rx eliquis 4. History of renal failure,was on peritoneal dialysis. Later HD 5. History of hypertension. She was hypotensive at admission. 6. History of diabetes. 7. I will follow the patient during inpatient stay and then in the clinic setting for anticoagulation management. 8 - fever Issues - Id following - on Abx 07/05 - d/w dr cartagena - pharmacy to help reg NOAC - ? eliquis 2.5 q 12? 07/06 - pharmacy has placed pt on 5 mg q 12 07/08 - pt on eliquis - d/w dr noyola - Placement pending gets PD 07/09 - pt had fever on eliquis for left leg dvt. h/o abdo discomfort - on and off 07/10/2018 DVT - on eliquis c/o abdo discomfort - d/w dr andrade - US abdo elevated MCV - low folate - replace ESRD on PD h/o fever 07/11 US abdo done - report pending Leukocytosis - seen by ID on eliquis 07/13/2018 pt says PD catheter not working US abdo done ID - for Abx eliquis for DVT 07/14 DVT - eliquis WBC high - on Abx MCV elevated - low folate - on Rx on Pd 07/15 dvt - on eliquis h/o anemia - on procrit - folic acid on PD for CKD OP follow up from hem perspective 07/16 HD cath PD cath removal being looked into DVT - on eliquis - reviewed dose for HD 07/17 DVT leg - on eliquis anemia - procrit for HD folic acid 07/18 PD cath infection - removal planned DVT on eliquis has HD cath h/o fever - ID following 07/19 PD cath removed pending OP HD chair DVT leg - on eliquis d/w bozena 07/23 saw pt after a gap of few days pt on eliquis for dvt CKD on Dialysis d/w pt reg DVT - eliquis low folate - on meds 07/24 - eliquis for dvt dialysis for CKD low folate by ix - Patient Problems (1) DVT (deep venous thrombosis) Status: Acute Qualifiers: DVT location: lower extremity Chronicity: acute Subjective Date of service: 07/22/18 Principal diagnosis: dvt Interval history: no bleeding Objective - Constitutional Vitals: Last Vital Signs Temp 97.8 F 07/22/18 07:20 Pulse 87 07/22/18 07:20 Resp 18 07/22/18 07:20 BP 100/50 07/22/18 07:20 Pulse Ox 91 07/22/18 07:20 Pain Intensity (0-10): denies any pain General appearance: no acute distress Performance status: 3-limited selfcare - EENT Eyes: EOM intact ENT: clear oral mucosa - Neck Neck: normal ROM - Respiratory Respiratory effort: Positive: normal Respiratory: bilateral: CTA - Cardiovascular Heart Sounds: Present: S1 & S2 Extremities: No edema - Gastrointestinal General gastrointestinal: Present: soft Localized Gastrointestinal: tender: diffuse Rectal Exam: deferred - Genitourinary Female genitourinary: Present: deferred - Integumentary Integumentary: warm - Musculoskeletal Musculoskeletal: generalized weakness - Neurologic Neurologic: moves all extremities - Labs Lab Results: Laboratory Results - last 24 hr 07/21/18 07/21/18 07/21/18 11:16 16:26 21:39 WBC RBC Hgb Hct MCV MCH MCHC RDW Plt Count POC Glucose 97 123 H 127 H 07/22/18 07/22/18 07:22 07:24 WBC 15.4 H RBC 3.26 L Hgb 11.1 Hct 35.1 MCV 108 H MCH 34 H MCHC 32 RDW 16.4 H Plt Count 190 POC Glucose 92 Medications & Allergies - Medications Allergies/Adverse Reactions: Allergies No Known Allergies Allergy (Verified 08/18/14 08:52) Home Medications: Home Medications Medication Instructions Recorded Confirmed Last Taken Type Calcitriol [Rocaltrol] 0.5 mcg PO QDAY 06/29/18 06/29/18 Unknown History Simvastatin [Zocor] 20 mg PO DAILY 06/29/18 06/29/18 Unknown History Apixaban [Eliquis] 5 mg PO Q12HR tablet 07/15/18 Unknown Rx Aspirin [Aspirin BABY CHEW TAB] 81 mg PO QDAY tab.chew 07/15/18 Unknown Rx AtorvaSTATin [Lipitor] 40 mg PO QHS tablet 07/15/18 Unknown Rx Cefepime/Ns 1 gm/100 ml 1 gm IV Q24HR 21 Days piggyback 07/15/18 Unknown Rx [Maxipime/Ns 1 gm/100 ml] Docusate Sodium [Colace CAP] 100 mg PO BID capsule 07/15/18 Unknown Rx Fludrocortisone [Florinef] 0.1 mg PO QDAY tablet 07/15/18 Unknown Rx Folic Acid [Folvite] 1 mg PO QDAY tablet 07/15/18 Unknown Rx Lactulose [Cephulac] 20 gm PO TID PRN oral.liqd 07/15/18 Unknown Rx Lispro Insulin [Humalog] 0 unit SUB-Q ACHS units 07/15/18 Unknown Rx Midodrine [Proamatine] 10 mg PO TID tablet 07/15/18 Unknown Rx Pantoprazole [Protonix TAB] 40 mg PO QDAY tablet 07/15/18 Unknown Rx Polyethylene Glycol 3350 [Miralax 17 gm PO QDAY powd.pack 07/15/18 Unknown Rx 3350] Sevelamer Carbonate [Renvela] 1,600 mg PO TIDWM tablet 07/15/18 Unknown Rx Apixaban [Eliquis] 5 mg PO Q12HR #60 tablet 07/23/18 Unknown Rx Dicyclomine [Bentyl] 10 mg PO QID PRN #15 capsule 07/23/18 Unknown Rx Active Medications: Generic Name Dose Route Start Last Admin Trade Name Freq PRN Reason Stop Dose Admin Acetaminophen 650 mg 07/15/18 12:55 07/15/18 13:53 Tylenol PO 650 mg Q4H PRN Administration Pain, Mild (1-3) Apixaban 5 mg 07/18/18 22:00 07/21/18 21:11 Eliquis PO 5 mg Q12HR DIANE Administration Protocol Aspirin 81 mg 06/29/18 13:00 07/21/18 11:08 Baby Aspirin PO 81 mg QDAY DIANE Administration Atorvastatin Calcium 40 mg 06/29/18 22:00 07/21/18 21:11 Lipitor PO 40 mg QHS DIANE Administration Calcitriol 0.5 mcg 06/29/18 13:00 07/21/18 11:09 Rocaltrol PO 0.5 mcg QDAY DIANE Administration Docusate Sodium 100 mg 07/02/18 10:00 07/21/18 21:12 Colace PO 100 mg BID DIANE Administration Fludrocortisone Acetate 0.1 mg 07/15/18 14:00 07/21/18 11:07 Florinef PO 0.1 mg QDAY DIANE Administration Folic Acid 1 mg 07/10/18 14:00 07/21/18 11:08 Folvite PO 1 mg QDAY DIANE Administration Heparin Sodium (Porcine) 5,000 unit 07/16/18 18:52 Heparin IV THOMAS PRN hemodialysis Hydrocortisone Acetate 20 mg 07/20/18 11:30 07/21/18 11:07 Cortef PO 07/24/18 10:01 20 mg QDAY DIANE Administration Sodium Chloride 100 mls @ 999 mls/hr 07/16/18 18:52 Nacl 0.9% IV THOMAS PRN Hypotension Cefepime HCl 1 gm in 100 mls @ 200 mls/hr 07/16/18 22:00 07/21/18 21:43 Maxipime/Ns 1 Gm/100 Ml IV 08/01/18 23:59 Infused QHS DIANE Infusion Protocol Vancomycin HCl 1 gm in 250 mls @ 167.007 mls/hr 07/17/18 18:00 07/19/18 19:52 Vancomycin/Ns 1 Gm/250 Ml IV 08/01/18 23:59 Infused [id number] DIANE Infusion Sodium Chloride 1,000 mls @ 42 mls/hr 07/18/18 14:00 07/18/18 14:10 Nacl 0.9% 1000 Ml IV 42 mls/hr DIRECT DIANE Administration Insulin Human Lispro 0 unit 06/29/18 22:00 07/22/18 07:18 Humalog SUB-Q Not Given ACHS [facility] Protocol Lactulose 20 gm 07/13/18 12:00 Cephulac PO TID PRN Constipation Midodrine 10 mg 07/01/18 14:00 07/22/18 07:33 Proamatine PO 10 mg TID DIANE Administration Morphine Sulfate 2 mg 07/08/18 14:51 07/22/18 05:21 Morphine IV 2 mg Q4H PRN Administration Pain, Moderate (4-6) Pantoprazole Sodium 40 mg 07/08/18 10:00 07/21/18 11:09 Protonix PO 40 mg QDAY DIANE Administration Polyethylene Glycol 17 gm 07/02/18 10:00 04/14/19 11:08 Miralax 3350 PO 17 gm QDAY DIANE Administration Sevelamer Carbonate 1,600 mg 06/29/18 12:00 07/22/18 07:26 Renvela PO Not Given TIDWM DIANE
[2018-07-22 08:02] LABS: BUN/Creatinine Ratio 5; Blood Urea Nitrogen 28 mg/dL (7-17); Calcium 8.3 mg/dL (8.4-10.2); Hemolysis Index 158
[2018-07-22 08:24] LABS: Anisocytosis 1+; Band Neutrophils # (Manual) 0.5 K/mm3; Basophils % (Manual) 0 % (0.0-1.8); Eosinophils % (Manual) 0 % (0.0-4.3); Schistocytes Few; Total Cells Counted 100
[2018-07-22 08:25] LABS: Platelet Clumps Rare; Platelet Estimate Consistent w Auto; Toxic Vacuolation Few
--- NOTE | 2018-07-22 10:06 | Progress Note ---
Assessment and Plan Impression: * End stage renal disease on PD * Catheter associated peritonitis * Hypotension * LE DVT * Elevated troponin --TTE: LVEF 55-60% --Strest shannon: nml perfusion, nml LV function * Deconditioning * Hypokalemia * Secondary hyperparathyroidism * Erythrocytosis, resolved - ?secondary to hemoconcentration vs other --Renal u/s: no mass, small bilateral cysts Plan: * Continue MWF schedule * UF as tolerated * Midodrine 10mg TID; also receiving Florinef and Cortef * Continue abx * Anticoagulation per primary team * Replete lytes prn * Renal diet * Dose medications for renal function * Awaiting TANESHA placement Subjective Date of service: 07/22/18 Principal diagnosis: dvt leg Interval history: Patient reports appetite is improved. Reports difficulty walking - generalized weakness Objective - Vital Signs Vital signs: Vital Signs - 12hr 07/22/18 07/22/18 07/22/18 01:38 07:20 08:05 Temperature 98.1 F 97.8 F 97.8 F Pulse Rate 91 H 87 88 Respiratory 18 18 18 Rate Blood Pressure 96/47 100/50 89/47 O2 Sat by Pulse 100 91 Oximetry 07/22/18 07/22/18 07/22/18 08:15 08:30 08:45 Temperature Pulse Rate 84 89 95 H Respiratory Rate Blood Pressure 95/41 74/41 75/42 O2 Sat by Pulse Oximetry 07/22/18 07/22/18 07/22/18 09:00 09:15 09:30 Temperature Pulse Rate 101 H 98 H 102 H Respiratory Rate Blood Pressure 65/42 70/42 59/45 O2 Sat by Pulse Oximetry 07/22/18 09:33 Temperature Pulse Rate 100 H Respiratory Rate Blood Pressure 66/43 O2 Sat by Pulse Oximetry - General Appearance General appearance: well-developed, well-nourished EENT: ATNC Cardiology: regular, S1S2 Gastrointestinal: normal, tenderness, no distended Integumentary: no rash, warm and dry Neurologic: no focal deficit Psychiatric: cooperative - Lab 07/22/18 07:24 07/22/18 08:25 Most recent lab results Calcium 8.3 mg/dL (8.4-10.2) L 07/22/18 07:24 Medications & Allergies - Medications Allergies/Adverse Reactions: Allergies No Known Allergies Allergy (Verified 08/18/14 08:52) Home Medications: Home Medications Medication Instructions Recorded Confirmed Last Taken Type Calcitriol [Rocaltrol] 0.5 mcg PO QDAY 06/29/18 06/29/18 Unknown History Simvastatin [Zocor] 20 mg PO DAILY 06/29/18 06/29/18 Unknown History Apixaban [Eliquis] 5 mg PO Q12HR tablet 07/15/18 Unknown Rx Aspirin [Aspirin BABY CHEW TAB] 81 mg PO QDAY tab.chew 07/15/18 Unknown Rx AtorvaSTATin [Lipitor] 40 mg PO QHS tablet 07/15/18 Unknown Rx Cefepime/Ns 1 gm/100 ml 1 gm IV Q24HR 21 Days piggyback 07/15/18 Unknown Rx [Maxipime/Ns 1 gm/100 ml] Docusate Sodium [Colace CAP] 100 mg PO BID capsule 07/15/18 Unknown Rx Fludrocortisone [Florinef] 0.1 mg PO QDAY tablet 07/15/18 Unknown Rx Folic Acid [Folvite] 1 mg PO QDAY tablet 07/15/18 Unknown Rx Lactulose [Cephulac] 20 gm PO TID PRN oral.liqd 07/15/18 Unknown Rx Lispro Insulin [Humalog] 0 unit SUB-Q ACHS units 07/15/18 Unknown Rx Midodrine [Proamatine] 10 mg PO TID tablet 07/15/18 Unknown Rx Pantoprazole [Protonix TAB] 40 mg PO QDAY tablet 07/15/18 Unknown Rx Polyethylene Glycol 3350 [Miralax 17 gm PO QDAY powd.pack 07/15/18 Unknown Rx 3350] Sevelamer Carbonate [Renvela] 1,600 mg PO TIDWM tablet 07/15/18 Unknown Rx Active Medications: Generic Name Dose Route Start Last Admin Trade Name Freq PRN Reason Stop Dose Admin Acetaminophen 650 mg 07/15/18 12:55 07/15/18 13:53 Tylenol PO 650 mg Q4H PRN Administration Pain, Mild (1-3) Apixaban 5 mg 07/18/18 22:00 07/21/18 21:11 Eliquis PO 5 mg Q12HR DIANE Administration Protocol Aspirin 81 mg 06/29/18 13:00 07/21/18 11:08 Baby Aspirin PO 81 mg QDAY DIANE Administration Atorvastatin Calcium 40 mg 03/23/19 22:00 07/21/18 21:11 Lipitor PO 40 mg QHS DIANE Administration Calcitriol 0.5 mcg 06/29/18 13:00 07/21/18 11:09 Rocaltrol PO 0.5 mcg QDAY DIANE Administration Docusate Sodium 100 mg 07/02/18 10:00 07/21/18 21:12 Colace PO 100 mg BID DIANE Administration Fludrocortisone Acetate 0.1 mg 07/15/18 14:00 07/21/18 11:07 Florinef PO 0.1 mg QDAY DIANE Administration Folic Acid 1 mg 07/10/18 14:00 07/21/18 11:08 Folvite PO 1 mg QDAY DIANE Administration Heparin Sodium (Porcine) 5,000 unit 07/16/18 18:52 Heparin IV THOMAS PRN hemodialysis Hydrocortisone Acetate 20 mg 07/20/18 11:30 07/21/18 11:07 Cortef PO 07/24/18 10:01 20 mg QDAY DIANE Administration Sodium Chloride 100 mls @ 999 mls/hr 07/16/18 18:52 Nacl 0.9% IV THOMAS PRN Hypotension Cefepime HCl 1 gm in 100 mls @ 200 mls/hr 07/16/18 22:00 07/21/18 21:43 Maxipime/Ns 1 Gm/100 Ml IV 08/01/18 23:59 Infused QHS DIANE Infusion Protocol Vancomycin HCl 1 gm in 250 mls @ 167.007 mls/hr 07/17/18 18:00 07/19/18 19:52 Vancomycin/Ns 1 Gm/250 Ml IV 08/01/18 23:59 Infused [id number] DIANE Infusion Sodium Chloride 1,000 mls @ 42 mls/hr 07/18/18 14:00 07/18/18 14:10 Nacl 0.9% 1000 Ml IV 42 mls/hr DIRECT DIANE Administration Insulin Human Lispro 0 unit 06/29/18 22:00 07/22/18 07:18 Humalog SUB-Q Not Given ACHS [facility] Protocol Lactulose 20 gm 07/13/18 12:00 Cephulac PO TID PRN Constipation Midodrine 10 mg 07/01/18 14:00 07/22/18 07:33 Proamatine PO 10 mg TID DIANE Administration Morphine Sulfate 2 mg 07/08/18 14:51 07/22/18 05:21 Morphine IV 2 mg Q4H PRN Administration Pain, Moderate (4-6) Pantoprazole Sodium 40 mg 07/08/18 10:00 07/21/18 11:09 Protonix PO 40 mg QDAY DIANE Administration Polyethylene Glycol 17 gm 07/02/18 10:00 07/21/18 11:08 Miralax 3350 PO 17 gm QDAY DIANE Administration Sevelamer Carbonate 1,600 mg 06/29/18 12:00 07/22/18 07:26 Renvela PO Not Given TIDWM DIANE
[2018-07-22] MEDS: MIRALAX 3350 PO SCH (10:40)
[2018-07-22] MEDS: COLACE PO SCH ×2 (10:40→21:30)
[2018-07-22] MEDS: PROTONIX PO SCH (11:47)
[2018-07-22] MEDS: FLORINEF PO SCH (11:48)
[2018-07-22] MEDS: CORTEF PO SCH (11:48)
[2018-07-22] MEDS: ELIQUIS PO SCH ×2 (11:49→21:30)
[2018-07-22] MEDS: ROCALTROL PO SCH (11:49)
[2018-07-22] MEDS: BABY ASPIRIN PO SCH (12:24)
[2018-07-22] MEDS: FOLVITE PO SCH (12:24)
[2018-07-22 15:27] LABS: Hepatitis B Surface Antigen Non-Reactive (Negative); Hepatitis C Virus Antibody Non-Reactive (NonReactive)
--- NOTE | 2018-07-22 16:58 | Progress Note ---
Assessment and Plan - Patient Problems (1) DVT (deep venous thrombosis) Current Visit: Yes Status: Acute Qualifiers: DVT location: lower extremity Chronicity: acute Plan to address problem: DVT continue present anticoagulation. Elaquis (2) ESRD (end stage renal disease) Current Visit: Yes Status: Acute Plan to address problem: Continue hemodialysis as we are doing. Current creatinine 5.9. No evidence of metabolic encephalopathy at this time. Patient insisted bedside answering questions appropriately. (3) HTN (hypertension) Current Visit: Yes Status: Acute Plan to address problem: At present blood pressure well controlled. (4) NSTEMI (non-ST elevated myocardial infarction) Current Visit: Yes Status: Acute (5) Obesity (BMI 30.0-34.9) Current Visit: Yes Status: Acute (6) Sepsis Current Visit: Yes Status: Acute Plan to address problem: Sepsis secondary to her peritonitis Patient still has some abdominal pain. At present patient appears to be tolerating by mouth. I think adding oral pain medication should be better than morphine at this time. Will give short trial of Percocet and frequent pain assessments. Cefpime and vanco. She had fever curve appears to be coming down. Leukocytosis of 15. (7) Abdominal pain Current Visit: Yes Status: Acute Plan to address problem: At present the pain does not appear to be severe. I think we can get off of morphine. Occult detail whether it is soft tissue pain. Clearly on exam and reproduction of the abdomen area there is no significant pain at that time. Clearly could be from previous peritonitis and will wean patient off of morphine and start hydrocodone and advance as tolerated. (8) Hypotension Current Visit: Yes Status: Acute Plan to address problem: Patient with chronic hypertension continue milrinone History Interval history: Patient today and planned of pain stated morphine was no longer working. Recently described pain as in the abdomen area extending from pelvis to midabdomen. Described as a stabbing pain. No nausea or vomiting at this time. Patient wishes she describes the pain states she hasn't now but appears very calm and does not appear acutely ill. Sister at bedside. Patient currently answering questions appropriately. Denies fever denies chest pain no shortness of breath at this particular time Hospitalist Physical - Constitutional Vitals: Temp Pulse Resp BP Pulse Ox 97.8 F 97 H 18 74/44 99 07/22/18 11:25 07/22/18 11:25 07/22/18 11:25 07/22/18 11:25 07/22/18 10:00 General appearance: Present: no acute distress, obese - EENT Eyes: Present: PERRL, EOM intact ENT: hearing intact, clear oral mucosa, dentition normal, no oropharyngeal eryth osmani, no poor dentition, no thrush - Neck Neck: Present: supple, normal ROM. Absent: enlarged thyroid, masses or JVD, cervical LAD - Respiratory Respiratory: bilateral: CTA - Cardiovascular Rhythm: regular Heart Sounds: Present: S1 & S2 - Extremities Extremities: no ischemia, pulses intact, pulses symmetrical, No edema, normal temperature, normal color, Full ROM Peripheral Pulses: within normal limits - Abdominal General gastrointestinal: soft, non-tender, non-distended, normal bowel sounds - Integumentary Integumentary: Present: clear, warm, dry, erythema - Psychiatric Psychiatric: appropriate mood/affect, intact judgment & insight, memory intact - Neurologic Neurologic: focal deficits, moves all extremities Results - Labs CBC & Chem 7: 07/22/18 07:24 07/22/18 08:25 Labs: Laboratory Last Values WBC 15.4 K/mm3 (4.5-11.0) H 07/22/18 07:24 RBC 3.26 M/mm3 (3.65-5.03) L 07/22/18 07:24 Hgb 11.1 gm/dl (10.1-14.3) 07/22/18 07:24 Hct 35.1 % (30.3-42.9) 07/22/18 07:24 MCV 108 fl (79-97) H 07/22/18 07:24 MCH 34 pg (28-32) H 07/22/18 07:24 MCHC 32 % (30-34) 07/22/18 07:24 RDW 16.4 % (13.2-15.2) H 07/22/18 07:24 Plt Count 190 K/mm3 (140-440) 07/22/18 07:24 Lymph % (Auto) 6.4 % (13.4-35.0) L 07/15/18 06:42 [place] % (Auto) 3.4 % (0.0-7.3) 07/15/18 06:42 Eos % (Auto) 0.5 % (0.0-4.3) 07/15/18 06:42 Baso % (Auto) 0.1 % (0.0-1.8) 07/15/18 06:42 Lymph # 0.8 K/mm3 (1.2-5.4) L 07/15/18 06:42 [place] # 0.4 K/mm3 (0.0-0.8) 07/15/18 06:42 Eos # 0.1 K/mm3 (0.0-0.4) 07/15/18 06:42 Baso # 0.0 K/mm3 (0.0-0.1) 07/15/18 06:42 Add Manual Diff Complete 07/22/18 07:24 Total Counted 100 07/22/18 07:24 Seg Neutrophils % Acoustics Teacher 07/18/18 00:56 Seg Neuts % (Manual) 95.0 % (40.0-70.0) H 07/22/18 07:24 Band Neutrophils % 3.0 % 07/22/18 07:24 Lymphocytes % (Manual) 1.0 % (13.4-35.0) L 07/22/18 07:24 Reactive Lymphs % (Man) 0 % 07/22/18 07:24 Monocytes % (Manual) 1.0 % (0.0-7.3) 07/22/18 07:24 Eosinophils % (Manual) 0 % (0.0-4.3) 07/22/18 07:24 Basophils % (Manual) 0 % (0.0-1.8) 07/22/18 07:24 Metamyelocytes % 0 % 07/22/18 07:24 Myelocytes % 0 % 07/22/18 07:24 Promyelocytes % 0 % 07/22/18 07:24 Blast Cells % 0 % 07/22/18 07:24 Nucleated RBC % Not Reportable 07/22/18 07:24 Seg Neutrophils # 10.6 K/mm3 (1.8-7.7) H 07/15/18 06:42 Seg Neutrophils # Man 14.6 K/mm3 (1.8-7.7) H 07/22/18 07:24 Band Neutrophils # 0.5 K/mm3 07/22/18 07:24 Lymphocytes # (Manual) 0.2 K/mm3 (1.2-5.4) L 07/22/18 07:24 Abs React Lymphs (Man) 0.0 K/mm3 07/22/18 07:24 Monocytes # (Manual) 0.2 K/mm3 (0.0-0.8) 07/22/18 07:24 Eosinophils # (Manual) 0.0 K/mm3 (0.0-0.4) 07/22/18 07:24 Basophils # (Manual) 0.0 K/mm3 (0.0-0.1) 07/22/18 07:24 Metamyelocytes # 0.0 K/mm3 07/22/18 07:24 Myelocytes # 0.0 K/mm3 07/22/18 07:24 Promyelocytes # 0.0 K/mm3 07/22/18 07:24 Blast Cells # 0.0 K/mm3 07/22/18 07:24 WBC Morphology Not Reportable 07/22/18 07:24 Hypersegmented Neuts Not Reportable 07/22/18 07:24 Hyposegmented Neuts Not Reportable 07/22/18 07:24 Hypogranular Neuts Not Reportable 07/22/18 07:24 Smudge Cells Not Reportable 07/22/18 07:24 Toxic Granulation Not Reportable 07/22/18 07:24 Toxic Vacuolation Few 07/22/18 07:24 Dohle Bodies Not Reportable 07/22/18 07:24 Pelger-Huet Anomaly Not Reportable 07/22/18 07:24 Nomi Rods Not Reportable 07/22/18 07:24 Platelet Estimate Consistent w auto 07/22/18 07:24 Clumped Platelets Rare 07/22/18 07:24 Plt Clumps, EDTA Not Reportable 07/22/18 07:24 Large Platelets Not Reportable 07/22/18 07:24 Giant Platelets Not Reportable 07/22/18 07:24 Platelet Satelliting Not Reportable 07/22/18 07:24 Plt Morphology Comment Not Reportable 07/22/18 07:24 RBC Morphology Not Reportable 07/22/18 07:24 Dimorphic RBCs Not Reportable 07/22/18 07:24 Polychromasia Few 07/22/18 07:24 Hypochromasia Not Reportable 07/22/18 07:24 Poikilocytosis Not Reportable 07/22/18 07:24 Anisocytosis 1+ 07/22/18 07:24 Microcytosis Not Reportable 07/22/18 07:24 Macrocytosis Not Reportable 07/22/18 07:24 Spherocytes Not Reportable 07/22/18 07:24 Pappenheimer Bodies Not Reportable 07/22/18 07:24 Sickle Cells Not Reportable 07/22/18 07:24 Target Cells Not Reportable 07/22/18 07:24 Tear Drop Cells Not Reportable 07/22/18 07:24 Ovalocytes Not Reportable 07/22/18 07:24 Helmet Cells Not Reportable 07/22/18 07:24 [place] Bodies Not Reportable 07/22/18 07:24 Marshall Rings Not Reportable 07/22/18 07:24 [place] Cells Not Reportable 07/22/18 07:24 Bite Cells Not Reportable 07/22/18 07:24 Crenated Cell Not Reportable 07/22/18 07:24 Elliptocytes Not Reportable 07/22/18 07:24 Acanthocytes (Spur) Not Reportable 07/22/18 07:24 Rouleaux Not Reportable 07/22/18 07:24 Hemoglobin C Crystals Not Reportable 07/22/18 07:24 Schistocytes Few 07/22/18 07:24 Malaria parasites Not Reportable 07/22/18 07:24 Navneet Bodies Not Reportable 07/22/18 07:24 Hem Pathologist Commnt No 07/22/18 07:24 PT 13.6 Sec. (12.2-14.9) 07/03/18 12:39 INR 0.98 (0.87-1.13) 07/03/18 12:39 APTT 34.1 Sec. (24.2-36.6) 07/03/18 12:39 D-Dimer > 25522 ng/mlDDU (0-234) H 06/28/18 22:26 Heparin Anti-Xa Level 1.70 U.I./ml (0.3-0.7) H 07/04/18 14:59 Sodium 135 mmol/L (137-145) L 07/22/18 07:24 Potassium 3.7 mmol/L (3.6-5.0) 07/22/18 08:25 Chloride 102.3 mmol/L (98-107) 07/22/18 07:24 Carbon Dioxide 23 mmol/L (22-30) 07/22/18 07:24 Anion Gap 16 mmol/L 07/22/18 07:24 BUN 28 mg/dL (7-17) H 07/22/18 07:24 Creatinine 5.9 mg/dL (0.7-1.2) H 07/22/18 07:24 Estimated GFR 9 ml/min 07/22/18 07:24 BUN/Creatinine Ratio 5 % 07/22/18 07:24 Glucose 85 mg/dL (65-100) 07/22/18 07:24 POC Glucose 152 (70-105) H 07/22/18 16:01 Lactic Acid 2.20 mmol/L (0.7-2.0) H* 07/02/18 05:22 Calcium 8.3 mg/dL (8.4-10.2) L 07/22/18 07:24 Total Bilirubin 0.40 mg/dL (0.1-1.2) 06/28/18 20:54 AST 25 units/L (5-40) 06/28/18 20:54 ALT 5 units/L (7-56) L 06/28/18 20:54 Alkaline Phosphatase 88 units/L (35-129) 06/28/18 20:54 Total Creatine Kinase 118 units/L (30-135) 06/29/18 20:37 Troponin T 0.077 ng/mL (0.00-0.029) H 06/29/18 20:37 C-Reactive Protein 7.40 mg/dL (0.00-1.30) H 07/01/18 13:32 Total Protein 7.4 g/dL (6.3-8.2) 06/28/18 20:54 Albumin 3.2 g/dL (3.9-5) L 06/28/18 20:54 Albumin/Globulin Ratio 0.8 % 06/28/18 20:54 Triglycerides 194 mg/dL (2-149) H 06/28/18 10:38 Cholesterol 167 mg/dL (50-199) 06/28/18 10:38 LDL Cholesterol Direct 61 mg/dL (50-130) 06/28/18 10:38 HDL Cholesterol 68 mg/dL (40-59) H 06/28/18 10:38 Cholesterol/HDL Ratio 2.45 % 06/28/18 10:38 Vitamin B12 1416 pg/mL (211-911) H 07/08/18 05:19 Folate 2.39 ng/mL (7.3-26.0) L 07/08/18 05:19 Fluid Type Peritoneal 07/14/18 14:48 Fluid Color Straw 07/14/18 14:48 Fluid Appearance Cloudy 07/14/18 14:48 Fluid WBC 2700 /mm3 07/14/18 14:48 Fluid RBC 39 /mm3 07/14/18 14:48 Fluid Seg Neutrophils 96.0 % 07/14/18 14:48 Fluid Lymphocytes 3.0 % 07/14/18 14:48 Fluid Reactive Lymphs 0 % 07/14/18 14:48 Fluid Monocytes 1.0 % 07/14/18 14:48 Fluid Eosinophils 0 % 07/14/18 14:48 Fluid Basophils 0 % 07/14/18 14:48 Random Vancomycin 19 ug/mL (0-40.0) 07/16/18 05:12 Hepatitis A IgM Ab Non-reactive (NonReactive) 07/22/18 14:16 Hep Bs Antigen Non-reactive (Negative) 07/22/18 14:16 Hep B Core IgM Ab Non-reactive (NonReactive) 07/22/18 14:16 Hepatitis C Antibody Non-reactive (NonReactive) 07/22/18 14:16 Active Medications - Current Medications Current Medications: Generic Name Dose Route Start Last Admin Trade Name Freq PRN Reason Stop Dose Admin Acetaminophen 650 mg 07/15/18 12:55 07/15/18 13:53 Tylenol PO 650 mg Q4H PRN Administration Pain, Mild (1-3) Apixaban 5 mg 07/18/18 22:00 07/22/18 11:49 Eliquis PO 5 mg Q12HR DIANE Administration Protocol Aspirin 81 mg 06/29/18 13:00 07/22/18 12:24 Baby Aspirin PO 81 mg QDAY DIANE Administration Atorvastatin Calcium 40 mg 06/29/18 22:00 07/21/18 21:11 Lipitor PO 40 mg QHS DIANE Administration Calcitriol 0.5 mcg 06/29/18 13:00 07/22/18 11:49 Rocaltrol PO 0.5 mcg QDAY DIANE Administration Docusate Sodium 100 mg 07/02/18 10:00 07/22/18 10:40 Colace PO Not Given BID DIANE Fludrocortisone Acetate 0.1 mg 07/15/18 14:00 07/22/18 11:48 Florinef PO 0.1 mg QDAY DIANE Administration Folic Acid 1 mg 07/10/18 14:00 07/22/18 12:24 Folvite PO 1 mg QDAY DIANE Administration Heparin Sodium (Porcine) 5,000 unit 07/16/18 18:52 Heparin IV THOMAS PRN hemodialysis Hydrocortisone Acetate 20 mg 07/20/18 11:30 07/22/18 11:48 Cortef PO 07/24/18 10:01 20 mg QDAY DIANE Administration Sodium Chloride 100 mls @ 999 mls/hr 07/16/18 18:52 Nacl 0.9% IV THOMAS PRN Hypotension Cefepime HCl 1 gm in 100 mls @ 200 mls/hr 07/16/18 22:00 07/21/18 21:43 Maxipime/Ns 1 Gm/100 Ml IV 08/01/18 23:59 Infused QHS DIANE Infusion Protocol Vancomycin HCl 1 gm in 250 mls @ 167.007 mls/hr 07/17/18 18:00 07/19/18 19:52 Vancomycin/Ns 1 Gm/250 Ml IV 08/01/18 23:59 Infused [id number] DIANE Infusion Sodium Chloride 1,000 mls @ 42 mls/hr 07/18/18 14:00 07/18/18 14:10 Nacl 0.9% 1000 Ml IV 42 mls/hr DIRECT DIANE Administration Insulin Human Lispro 0 unit 06/29/18 22:00 07/22/18 13:03 Humalog SUB-Q Not Given ACHS [facility] Protocol Lactulose 20 gm 07/13/18 12:00 Cephulac PO TID PRN Constipation Midodrine 10 mg 07/01/18 14:00 07/22/18 14:00 Proamatine PO 10 mg TID DIANE Administration Morphine Sulfate 2 mg 07/08/18 14:51 07/22/18 15:41 Morphine IV 2 mg Q4H PRN Administration Pain, Moderate (4-6) Pantoprazole Sodium 40 mg 07/08/18 10:00 07/22/18 11:47 Protonix PO 40 mg QDAY DIANE Administration Polyethylene Glycol 17 gm 07/02/18 10:00 07/22/18 10:40 Miralax 3350 PO Not Given QDAY [facility] Sevelamer Carbonate 1,600 mg 06/29/18 12:00 07/22/18 16:14 Renvela PO Not Given TIDWM [facility] Nutrition/Malnutrition Assess - Dietary Evaluation Nutrition/Malnutrition Findings: Nutrition Notes Start: 07/05/18 14:49 Freq: Status: Active Protocol: Document 07/22/18 15:23 OL (Rec: 07/22/18 15:25 OL [id number]) Nutrition Notes Initial or Follow up Reassessment Current Diagnosis Diabetes,Hypertension Other Pertinent Diagnosis ESRD on PD, Possible sepsis Current Diet Renal Labs/Tests Reviewed Pertinent Medications Reviewed Height 5 ft 6 in Weight 102 kg Justin Body Weight (kg) 59.09 BMI 36.3 Subjective/Other Information Pt. reports appetite/intake improving. 50% of lunch consumed today. Pt. usually drinks 50% of nepro at the time. Encouraged pt. to consume protein at all meals. Reviewed protein foods. Burn Absent Trauma Absent Current % PO Fair (50-74%) #1 Nutrition Diagnosis Inadequate oral intake Diagnosis Progress(for reassessment Continues documentation) Is patient on ventilator? No Is Patient Ambulatory and/or Out of Bed Yes REE-([facility]-ambulatory/OOB) [ [id number]] Kcal/Kg value to use for calculation 17 Approximate Energy Requirements Using 1734 kcal/Kg Calculation Used for Recommendations Kcal/kg Additional Notes Protein Needs: 92-100g (1.2-1. 3g/kg, 77kg adjBW) Fluid Needs: 1 ml/kcal Nutrition Intervention Change Diet Order: Continue current Add Supplement/Snack (indicate name/kcal Nepro daily /protein ) Provides kCal: 425 Provides Protein (gm) 19 Goal #1 Meet at least 75% of energy and protein needs via PO and ONS intakes Anticipated Discharge Needs: Renal diet Follow-Up By: 07/24/18 Additional Comments f/u: intakes
[2018-07-22] MEDS: VANCOMYCIN/NS 1 GM/250 ML 1 GM/250 ML BAG IV SCH (17:00)
[2018-07-22] MEDS ORDERED: NACL 0.9 (PRIMING MACHINE ONLY DIALYSIS) MC ONE (17:06)
[2018-07-22] MEDS ORDERED: PERCOCET 5/325 PO PRN (17:43)
--- NOTE | 2018-07-22 19:06 | Progress Note ---
Assessment and Plan Patient is resting on room air.O2 saturation 99% . Patient Obese. Patient afebrile and has no leukocytosis.Patient receiving cefepime. Patient has dialysis and physical therapy to day. Having excessive day time sleepiness. Recommend sleep study as out patient.Venous doppler studies reported extensive left leg DVT.Patient is on Apixaban.. - Patient Problems (1) NSTEMI (non-ST elevated myocardial infarction) Current Visit: Yes Status: Acute Plan to address problem: Management as per cardiology. (2) HTN (hypertension) Current Visit: Yes Status: Acute Plan to address problem: Management as per primary care. (3) Diabetes Current Visit: Yes Status: Chronic Plan to address problem: Mangement as per primary care. (4) ESRD on peritoneal dialysis Current Visit: Yes Status: Acute Plan to address problem: Management as per Nephrology. Patient is on peritoneal dialysis. (5) Elevated d-dimer Current Visit: Yes Status: Acute Plan to address problem: Perfusion lung scan reported low probability for pulmonary emboli. Venous doppler studies of legs reported extensive left leg DVT.Patient is on Apixaban (6) Obesity (BMI 30.0-34.9) Current Visit: Yes Status: Acute Plan to address problem: Diet and exercise to loose weight. Sleep study as out patient. (7) DVT (deep venous thrombosis) Current Visit: Yes Status: Acute Qualifiers: DVT location: lower extremity Chronicity: acute Plan to address problem: Patients venous doppler studies reported extensive left leg DVT. Patient is on Apixaban. Subjective Date of service: 07/22/18 Principal diagnosis: dvt leg Interval history: Patient is resting on room air.O2 saturation 99% . Patient Obese. Patient afebrile and has no leukocytosis.Patient receiving cefepime. Patient has dialysis and physical therapy to day. Having excessive day time sleepiness. Recommend sleep study as out patient.Venous doppler studies reported extensive left leg DVT.Patient is on Apixaban. Objective Vital Signs - 12hr 07/22/18 07/22/18 07/22/18 07:20 08:05 08:15 Temperature 97.8 F 97.8 F Pulse Rate 87 88 84 Pulse Rate [ From Monitor] Respiratory 18 18 Rate Blood Pressure 100/50 89/47 95/41 O2 Sat by Pulse 91 Oximetry 07/22/18 07/22/18 07/22/18 08:30 08:45 09:00 Temperature Pulse Rate 89 95 H 101 H Pulse Rate [ From Monitor] Respiratory Rate Blood Pressure 74/41 75/42 65/42 O2 Sat by Pulse Oximetry 07/22/18 07/22/18 07/22/18 09:15 09:30 09:33 Temperature Pulse Rate 98 H 102 H 100 H Pulse Rate [ From Monitor] Respiratory Rate Blood Pressure 70/42 59/45 66/43 O2 Sat by Pulse Oximetry 07/22/18 07/22/18 07/22/18 09:45 10:00 10:15 Temperature Pulse Rate 100 H 95 H 96 H Pulse Rate [ 97 H From Monitor] Respiratory Rate Blood Pressure 79/45 79/39 99/35 O2 Sat by Pulse 99 Oximetry 07/22/18 07/22/18 07/22/18 10:30 11:00 11:25 Temperature 97.8 F Pulse Rate 95 H 83 97 H Pulse Rate [ From Monitor] Respiratory 18 Rate Blood Pressure 159/119 165/92 74/44 O2 Sat by Pulse Oximetry Constitutional: no acute distress, alert Eyes: non-icteric ENT: oropharynx moist, other (mallampati 3) Neck: supple, no lymphadenopathy, no JVD, other (large neck circumference) Effort: normal Ascultation: Bilateral: diminished breath sounds, rhonchi (scant in bases) Percussion: Bilateral: not dull Cardiovascular: regular rate and rhythm, other (No R/M) Gastrointestinal: normoactive bowel sounds, soft, non-distended, other (No HSM, PD cathetr, clean dry site, mild lower abdominal tenderness, no rebound) Integumentary: normal Extremities: no cyanosis, no edema, pulses normal, no ischemia or petechiae Neurologic: normal mental status, non-focal exam (grossly), pupils equal and round, motor strength normal and Psychiatric: mood appropriate, affect normal CBC and BMP: 07/22/18 07:24 07/22/18 08:25 ABG, PT/INR, D-dimer: PT/INR, D-dimer PT 13.6 Sec. (12.2-14.9) 07/03/18 12:39 INR 0.98 (0.87-1.13) 07/03/18 12:39 D-Dimer > 73459 ng/mlDDU (0-234) H 06/28/18 22:26 Abnormal lab findings: Abnormal Labs 06/28/18 06/28/18 06/28/18 10:38 20:54 20:54 WBC 24.8 H RBC Hgb 16.6 H Hct 50.3 H MCV 107 H MCH 35 H RDW 15.6 H Plt Count Lymph % (Auto) Lymph # Baso # Seg Neutrophils % Seg Neuts % (Manual) 95.0 H Lymphocytes % (Manual) 3.0 L Nucleated RBC % Seg Neutrophils # Seg Neutrophils # Man 23.6 H Lymphocytes # (Manual) 0.7 L Monocytes # (Manual) D-Dimer Heparin Anti-Xa Level Sodium 131 L Potassium Chloride 89.6 L Carbon Dioxide 19 L BUN 29 H Creatinine 9.3 H Glucose 174 H POC Glucose Lactic Acid Calcium ALT 5 L Troponin T 0.073 H C-Reactive Protein Albumin 3.2 L Triglycerides 194 H HDL Cholesterol 68 H Vitamin B12 Folate 06/28/18 06/29/18 06/29/18 22:26 12:18 13:30 WBC RBC Hgb Hct MCV MCH RDW Plt Count Lymph % (Auto) Lymph # Baso # Seg Neutrophils % Seg Neuts % (Manual) Lymphocytes % (Manual) Nucleated RBC % Seg Neutrophils # Seg Neutrophils # Man Lymphocytes # (Manual) Monocytes # (Manual) D-Dimer > 05381 H Heparin Anti-Xa Level Sodium Potassium Chloride Carbon Dioxide BUN Creatinine Glucose POC Glucose 168 H Lactic Acid Calcium ALT Troponin T 0.073 H C-Reactive Protein Albumin Triglycerides HDL Cholesterol Vitamin B12 Folate 06/29/18 06/29/18 06/29/18 13:30 14:11 16:36 WBC 19.8 H RBC Hgb 14.7 H Hct 45.4 H MCV 108 H MCH 35 H RDW 15.9 H Plt Count Lymph % (Auto) Lymph # Baso # Seg Neutrophils % Seg Neuts % (Manual) Lymphocytes % (Manual) Nucleated RBC % Seg Neutrophils # Seg Neutrophils # Man Lymphocytes # (Manual) Monocytes # (Manual) D-Dimer Heparin Anti-Xa Level Sodium 133 L Potassium Chloride 91.7 L Carbon Dioxide 20 L BUN 33 H Creatinine 9.9 H Glucose 196 H POC Glucose 165 H Lactic Acid Calcium ALT Troponin T C-Reactive Protein Albumin Triglycerides HDL Cholesterol Vitamin B12 Folate 06/29/18 06/29/18 06/30/18 20:37 22:01 04:49 WBC 14.8 H RBC Hgb Hct MCV 106 H MCH 35 H RDW 15.5 H Plt Count Lymph % (Auto) Lymph # Baso # Seg Neutrophils % Seg Neuts % (Manual) 90.0 H Lymphocytes % (Manual) 5.0 L Nucleated RBC % Seg Neutrophils # Seg Neutrophils # Man 13.3 H Lymphocytes # (Manual) 0.7 L Monocytes # (Manual) D-Dimer Heparin Anti-Xa Level Sodium Potassium Chloride Carbon Dioxide BUN Creatinine Glucose POC Glucose 202 H Lactic Acid Calcium ALT Troponin T 0.077 H C-Reactive Protein Albumin Triglycerides HDL Cholesterol Vitamin B12 Folate 06/30/18 06/30/18 06/30/18 04:49 08:27 12:17 WBC RBC Hgb Hct MCV MCH RDW Plt Count Lymph % (Auto) Lymph # Baso # Seg Neutrophils % Seg Neuts % (Manual) Lymphocytes % (Manual) Nucleated RBC % Seg Neutrophils # Seg Neutrophils # Man Lymphocytes # (Manual) Monocytes # (Manual) D-Dimer Heparin Anti-Xa Level Sodium 134 L Potassium 3.5 L Chloride 94.7 L Carbon Dioxide BUN 30 H Creatinine 8.8 H Glucose 182 H POC Glucose 170 H 145 H Lactic Acid Calcium 7.9 L ALT Troponin T C-Reactive Protein Albumin Triglycerides HDL Cholesterol Vitamin B12 Folate 06/30/18 06/30/18 07/01/18 16:44 22:06 07:21 WBC 11.8 H RBC 3.32 L Hgb Hct MCV 105 H MCH 35 H RDW 15.5 H Plt Count 125 L Lymph % (Auto) Lymph # Baso # Seg Neutrophils % Seg Neuts % (Manual) Lymphocytes % (Manual) Nucleated RBC % Seg Neutrophils # Seg Neutrophils # Man Lymphocytes # (Manual) Monocytes # (Manual) D-Dimer Heparin Anti-Xa Level Sodium Potassium Chloride Carbon Dioxide BUN Creatinine Glucose POC Glucose 155 H 174 H Lactic Acid Calcium ALT Troponin T C-Reactive Protein Albumin Triglycerides HDL Cholesterol Vitamin B12 Folate 07/01/18 07/01/18 07/01/18 07:21 08:22 11:38 WBC RBC Hgb Hct MCV MCH RDW Plt Count Lymph % (Auto) Lymph # Baso # Seg Neutrophils % Seg Neuts % (Manual) Lymphocytes % (Manual) Nucleated RBC % Seg Neutrophils # Seg Neutrophils # Man Lymphocytes # (Manual) Monocytes # (Manual) D-Dimer Heparin Anti-Xa Level Sodium 134 L Potassium Chloride 95.9 L Carbon Dioxide BUN 31 H Creatinine 8.4 H Glucose 151 H POC Glucose 117 H 166 H Lactic Acid Calcium 7.8 L ALT Troponin T C-Reactive Protein Albumin Triglycerides HDL Cholesterol Vitamin B12 Folate 07/01/18 07/01/18 07/01/18 13:32 13:32 16:27 WBC RBC Hgb Hct MCV MCH RDW Plt Count Lymph % (Auto) Lymph # Baso # Seg Neutrophils % Seg Neuts % (Manual) Lymphocytes % (Manual) Nucleated RBC % Seg Neutrophils # Seg Neutrophils # Man Lymphocytes # (Manual) Monocytes # (Manual) D-Dimer Heparin Anti-Xa Level Sodium Potassium Chloride Carbon Dioxide BUN Creatinine Glucose POC Glucose 149 H Lactic Acid 2.20 H* Calcium ALT Troponin T C-Reactive Protein 7.40 H Albumin Triglycerides HDL Cholesterol Vitamin B12 Folate 07/01/18 07/01/18 07/02/18 19:35 21:36 05:22 WBC RBC Hgb Hct MCV MCH RDW Plt Count Lymph % (Auto) Lymph # Baso # Seg Neutrophils % Seg Neuts % (Manual) Lymphocytes % (Manual) Nucleated RBC % Seg Neutrophils # Seg Neutrophils # Man Lymphocytes # (Manual) Monocytes # (Manual) D-Dimer Heparin Anti-Xa Level Sodium Potassium Chloride Carbon Dioxide BUN Creatinine Glucose POC Glucose 129 H Lactic Acid 2.60 H* 2.20 H* Calcium ALT Troponin T C-Reactive Protein Albumin Triglycerides HDL Cholesterol Vitamin B12 Folate 07/02/18 07/02/18 07/02/18 05:22 05:22 07:11 WBC 12.6 H RBC 3.51 L Hgb Hct MCV 105 H MCH 35 H RDW Plt Count 132 L Lymph % (Auto) Lymph # Baso # Seg Neutrophils % Seg Neuts % (Manual) 92.0 H Lymphocytes % (Manual) 2.0 L Nucleated RBC % Seg Neutrophils # Seg Neutrophils # Man 11.6 H Lymphocytes # (Manual) 0.3 L Monocytes # (Manual) D-Dimer Heparin Anti-Xa Level Sodium 131 L Potassium 3.3 L Chloride 93.1 L Carbon Dioxide BUN 31 H Creatinine 7.5 H Glucose 228 H POC Glucose 215 H Lactic Acid Calcium 7.7 L ALT Troponin T C-Reactive Protein Albumin Triglycerides HDL Cholesterol Vitamin B12 Folate 07/02/18 07/02/18 07/03/18 15:35 21:56 10:56 WBC RBC Hgb Hct MCV MCH RDW Plt Count Lymph % (Auto) Lymph # Baso # Seg Neutrophils % Seg Neuts % (Manual) Lymphocytes % (Manual) Nucleated RBC % Seg Neutrophils # Seg Neutrophils # Man Lymphocytes # (Manual) Monocytes # (Manual) D-Dimer Heparin Anti-Xa Level Sodium 130 L Potassium Chloride 91.6 L Carbon Dioxide BUN 33 H Creatinine 7.8 H Glucose POC Glucose 123 H 135 H Lactic Acid Calcium 7.7 L ALT Troponin T C-Reactive Protein Albumin Triglycerides HDL Cholesterol Vitamin B12 Folate 07/03/18 07/03/18 07/03/18 11:00 21:03 22:06 WBC 11.9 H RBC 3.59 L Hgb Hct MCV 103 H MCH 35 H RDW Plt Count Lymph % (Auto) Lymph # Baso # Seg Neutrophils % Seg Neuts % (Manual) 94.0 H Lymphocytes % (Manual) 5.0 L Nucleated RBC % Seg Neutrophils # Seg Neutrophils # Man 11.2 H Lymphocytes # (Manual) 0.6 L Monocytes # (Manual) D-Dimer Heparin Anti-Xa Level 0.28 L Sodium Potassium Chloride Carbon Dioxide BUN Creatinine Glucose POC Glucose 177 H Lactic Acid Calcium ALT Troponin T C-Reactive Protein Albumin Triglycerides HDL Cholesterol Vitamin B12 Folate 07/04/18 07/04/18 07/04/18 01:08 05:22 05:22 WBC 13.1 H RBC Hgb Hct MCV 104 H MCH 35 H RDW Plt Count 139 L Lymph % (Auto) 5.0 L Lymph # 0.7 L Baso # 0.2 H Seg Neutrophils % 87.7 H Seg Neuts % (Manual) Lymphocytes % (Manual) Nucleated RBC % Seg Neutrophils # 11.5 H Seg Neutrophils # Man Lymphocytes # (Manual) Monocytes # (Manual) D-Dimer Heparin Anti-Xa Level Sodium 132 L Potassium 3.1 L Chloride 92.4 L Carbon Dioxide BUN 30 H Creatinine 7.4 H Glucose 113 H POC Glucose 106 H Lactic Acid Calcium 7.8 L ALT Troponin T C-Reactive Protein Albumin Triglycerides HDL Cholesterol Vitamin B12 Folate 07/04/18 07/04/18 07/04/18 05:22 12:15 14:59 WBC RBC Hgb Hct MCV MCH RDW Plt Count Lymph % (Auto) Lymph # Baso # Seg Neutrophils % Seg Neuts % (Manual) Lymphocytes % (Manual) Nucleated RBC % Seg Neutrophils # Seg Neutrophils # Man Lymphocytes # (Manual) Monocytes # (Manual) D-Dimer Heparin Anti-Xa Level 1.31 H 1.70 H Sodium Potassium Chloride Carbon Dioxide BUN Creatinine Glucose POC Glucose 200 H Lactic Acid Calcium ALT Troponin T C-Reactive Protein Albumin Triglycerides HDL Cholesterol Vitamin B12 Folate 07/04/18 07/05/18 07/05/18 20:56 06:17 06:17 WBC RBC 3.51 L Hgb Hct MCV 104 H MCH 35 H RDW Plt Count Lymph % (Auto) 7.8 L Lymph # 0.7 L Baso # Seg Neutrophils % 85.2 H Seg Neuts % (Manual) Lymphocytes % (Manual) Nucleated RBC % Seg Neutrophils # Seg Neutrophils # Man Lymphocytes # (Manual) Monocytes # (Manual) D-Dimer Heparin Anti-Xa Level Sodium 132 L Potassium 3.1 L Chloride 92.7 L Carbon Dioxide BUN 29 H Creatinine 7.3 H Glucose 115 H POC Glucose 133 H Lactic Acid Calcium 7.9 L ALT Troponin T C-Reactive Protein Albumin Triglycerides HDL Cholesterol Vitamin B12 Folate 07/05/18 07/06/18 07/06/18 23:47 06:53 06:53 WBC RBC 3.47 L Hgb Hct MCV 104 H MCH 35 H RDW Plt Count Lymph % (Auto) Lymph # Baso # Seg Neutrophils % Seg Neuts % (Manual) 93.0 H Lymphocytes % (Manual) 2.0 L Nucleated RBC % Seg Neutrophils # Seg Neutrophils # Man 8.6 H Lymphocytes # (Manual) 0.2 L Monocytes # (Manual) D-Dimer Heparin Anti-Xa Level Sodium 132 L Potassium 3.2 L Chloride 94.5 L Carbon Dioxide BUN 32 H Creatinine 8.7 H Glucose 106 H POC Glucose 112 H Lactic Acid Calcium 7.8 L ALT Troponin T C-Reactive Protein Albumin Triglycerides HDL Cholesterol Vitamin B12 Folate 07/06/18 07/06/18 07/07/18 16:23 22:56 07:56 WBC RBC Hgb Hct MCV MCH RDW Plt Count Lymph % (Auto) Lymph # Baso # Seg Neutrophils % Seg Neuts % (Manual) Lymphocytes % (Manual) Nucleated RBC % Seg Neutrophils # Seg Neutrophils # Man Lymphocytes # (Manual) Monocytes # (Manual) D-Dimer Heparin Anti-Xa Level Sodium Potassium Chloride Carbon Dioxide BUN Creatinine Glucose POC Glucose 126 H 139 H 181 H Lactic Acid Calcium ALT Troponin T C-Reactive Protein Albumin Triglycerides HDL Cholesterol Vitamin B12 Folate 07/07/18 07/07/18 07/07/18 09:35 09:35 12:52 WBC RBC Hgb Hct MCV 105 H MCH 35 H RDW Plt Count Lymph % (Auto) 6.3 L Lymph # 0.6 L Baso # Seg Neutrophils % 87.9 H Seg Neuts % (Manual) Lymphocytes % (Manual) Nucleated RBC % Seg Neutrophils # 8.2 H Seg Neutrophils # Man Lymphocytes # (Manual) Monocytes # (Manual) D-Dimer Heparin Anti-Xa Level Sodium 130 L Potassium 3.4 L Chloride 90.3 L Carbon Dioxide BUN 29 H Creatinine 8.0 H Glucose 201 H POC Glucose 161 H Lactic Acid Calcium 8.0 L ALT Troponin T C-Reactive Protein Albumin Triglycerides HDL Cholesterol Vitamin B12 Folate 07/07/18 07/08/18 07/08/18 21:56 05:19 05:19 WBC 12.7 H RBC Hgb Hct MCV 104 H MCH 35 H RDW Plt Count Lymph % (Auto) Lymph # Baso # Seg Neutrophils % Seg Neuts % (Manual) 92.0 H Lymphocytes % (Manual) 5.0 L Nucleated RBC % 1.0 H Seg Neutrophils # Seg Neutrophils # Man 11.7 H Lymphocytes # (Manual) 0.6 L Monocytes # (Manual) D-Dimer Heparin Anti-Xa Level Sodium 134 L Potassium 3.4 L Chloride 93.6 L Carbon Dioxide BUN 30 H Creatinine 8.0 H Glucose 184 H POC Glucose 162 H Lactic Acid Calcium ALT Troponin T C-Reactive Protein Albumin Triglycerides HDL Cholesterol Vitamin B12 Folate 07/08/18 07/08/18 07/08/18 05:19 05:19 08:25 WBC RBC Hgb Hct MCV MCH RDW Plt Count Lymph % (Auto) Lymph # Baso # Seg Neutrophils % Seg Neuts % (Manual) Lymphocytes % (Manual) Nucleated RBC % Seg Neutrophils # Seg Neutrophils # Man Lymphocytes # (Manual) Monocytes # (Manual) D-Dimer Heparin Anti-Xa Level Sodium Potassium Chloride Carbon Dioxide BUN Creatinine Glucose POC Glucose 200 H Lactic Acid Calcium ALT Troponin T C-Reactive Protein Albumin Triglycerides HDL Cholesterol Vitamin B12 1416 H Folate 2.39 L 07/08/18 07/08/18 07/08/18 11:48 16:14 21:53 WBC RBC Hgb Hct MCV MCH RDW Plt Count Lymph % (Auto) Lymph # Baso # Seg Neutrophils % Seg Neuts % (Manual) Lymphocytes % (Manual) Nucleated RBC % Seg Neutrophils # Seg Neutrophils # Man Lymphocytes # (Manual) Monocytes # (Manual) D-Dimer Heparin Anti-Xa Level Sodium Potassium Chloride Carbon Dioxide BUN Creatinine Glucose POC Glucose 202 H 176 H 219 H Lactic Acid Calcium ALT Troponin T C-Reactive Protein Albumin Triglycerides HDL Cholesterol Vitamin B12 Folate 07/09/18 07/09/18 07/09/18 07:50 09:51 09:51 WBC 15.8 H RBC Hgb Hct 43.4 H MCV 105 H MCH 34 H RDW Plt Count Lymph % (Auto) Lymph # Baso # Seg Neutrophils % Seg Neuts % (Manual) 94.0 H Lymphocytes % (Manual) 3.0 L Nucleated RBC % 1.0 H Seg Neutrophils # Seg Neutrophils # Man 14.9 H Lymphocytes # (Manual) 0.5 L Monocytes # (Manual) D-Dimer Heparin Anti-Xa Level Sodium 135 L Potassium Chloride 95.5 L Carbon Dioxide BUN 29 H Creatinine 8.4 H Glucose 204 H POC Glucose 163 H Lactic Acid Calcium ALT Troponin T C-Reactive Protein Albumin Triglycerides HDL Cholesterol Vitamin B12 Folate 07/09/18 07/09/18 07/09/18 11:50 18:47 22:16 WBC RBC Hgb Hct MCV MCH RDW Plt Count Lymph % (Auto) Lymph # Baso # Seg Neutrophils % Seg Neuts % (Manual) Lymphocytes % (Manual) Nucleated RBC % Seg Neutrophils # Seg Neutrophils # Man Lymphocytes # (Manual) Monocytes # (Manual) D-Dimer Heparin Anti-Xa Level Sodium Potassium Chloride Carbon Dioxide BUN Creatinine Glucose POC Glucose 156 H 176 H 189 H Lactic Acid Calcium ALT Troponin T C-Reactive Protein Albumin Triglycerides HDL Cholesterol Vitamin B12 Folate 07/10/18 07/10/18 07/10/18 05:35 08:22 08:52 WBC 17.9 H RBC Hgb Hct MCV 105 H MCH 34 H RDW Plt Count Lymph % (Auto) Lymph # Baso # Seg Neutrophils % Seg Neuts % (Manual) 87.0 H Lymphocytes % (Manual) 6.0 L Nucleated RBC % Seg Neutrophils # Seg Neutrophils # Man 15.6 H Lymphocytes # (Manual) 1.1 L Monocytes # (Manual) 1.1 H D-Dimer Heparin Anti-Xa Level Sodium 135 L Potassium Chloride 92.8 L Carbon Dioxide BUN 27 H Creatinine 7.5 H Glucose 175 H POC Glucose 129 H Lactic Acid Calcium ALT Troponin T C-Reactive Protein Albumin Triglycerides HDL Cholesterol Vitamin B12 Folate 07/10/18 07/10/18 07/10/18 11:47 18:22 21:32 WBC RBC Hgb Hct MCV MCH RDW Plt Count Lymph % (Auto) Lymph # Baso # Seg Neutrophils % Seg Neuts % (Manual) Lymphocytes % (Manual) Nucleated RBC % Seg Neutrophils # Seg Neutrophils # Man Lymphocytes # (Manual) Monocytes # (Manual) D-Dimer Heparin Anti-Xa Level Sodium Potassium Chloride Carbon Dioxide BUN Creatinine Glucose POC Glucose 189 H 211 H 306 H Lactic Acid Calcium ALT Troponin T C-Reactive Protein Albumin Triglycerides HDL Cholesterol Vitamin B12 Folate 07/11/18 07/11/18 07/11/18 04:10 07:36 11:49 WBC 19.4 H RBC Hgb Hct MCV 107 H MCH 35 H RDW 15.3 H Plt Count Lymph % (Auto) Lymph # Baso # Seg Neutrophils % Seg Neuts % (Manual) 89.0 H Lymphocytes % (Manual) 4.0 L Nucleated RBC % Seg Neutrophils # Seg Neutrophils # Man 17.3 H Lymphocytes # (Manual) 0.8 L Monocytes # (Manual) D-Dimer Heparin Anti-Xa Level Sodium Potassium Chloride Carbon Dioxide BUN Creatinine Glucose POC Glucose 113 H 123 H Lactic Acid Calcium ALT Troponin T C-Reactive Protein Albumin Triglycerides HDL Cholesterol Vitamin B12 Folate 07/11/18 07/11/18 07/12/18 17:35 23:28 00:48 WBC 17.0 H RBC Hgb Hct MCV 106 H MCH 35 H RDW Plt Count Lymph % (Auto) Lymph # Baso # Seg Neutrophils % Seg Neuts % (Manual) 92.0 H Lymphocytes % (Manual) 3.0 L Nucleated RBC % Seg Neutrophils # Seg Neutrophils # Man 15.6 H Lymphocytes # (Manual) 0.5 L Monocytes # (Manual) 0.9 H D-Dimer Heparin Anti-Xa Level Sodium Potassium Chloride Carbon Dioxide BUN Creatinine Glucose POC Glucose 207 H 188 H Lactic Acid Calcium ALT Troponin T C-Reactive Protein Albumin Triglycerides HDL Cholesterol Vitamin B12 Folate 07/12/18 07/12/18 07/12/18 04:05 09:21 12:05 WBC RBC Hgb Hct MCV MCH RDW Plt Count Lymph % (Auto) Lymph # Baso # Seg Neutrophils % Seg Neuts % (Manual) Lymphocytes % (Manual) Nucleated RBC % Seg Neutrophils # Seg Neutrophils # Man Lymphocytes # (Manual) Monocytes # (Manual) D-Dimer Heparin Anti-Xa Level Sodium Potassium Chloride Carbon Dioxide BUN Creatinine Glucose POC Glucose 147 H 125 H 113 H Lactic Acid Calcium ALT Troponin T C-Reactive Protein Albumin Triglycerides HDL Cholesterol Vitamin B12 Folate 07/12/18 07/13/18 07/13/18 22:25 05:28 05:28 WBC 15.5 H RBC 3.62 L Hgb Hct MCV 105 H MCH 34 H RDW Plt Count Lymph % (Auto) Lymph # Baso # Seg Neutrophils % Seg Neuts % (Manual) 99.0 H Lymphocytes % (Manual) 1.0 L Nucleated RBC % Seg Neutrophils # Seg Neutrophils # Man 15.3 H Lymphocytes # (Manual) 0.2 L Monocytes # (Manual) D-Dimer Heparin Anti-Xa Level Sodium 133 L Potassium Chloride 95.0 L Carbon Dioxide BUN 43 H Creatinine 9.1 H Glucose 124 H POC Glucose 162 H Lactic Acid Calcium 8.0 L ALT Troponin T C-Reactive Protein Albumin Triglycerides HDL Cholesterol Vitamin B12 Folate 07/13/18 07/13/18 07/13/18 07:59 11:40 16:41 WBC RBC Hgb Hct MCV MCH RDW Plt Count Lymph % (Auto) Lymph # Baso # Seg Neutrophils % Seg Neuts % (Manual) Lymphocytes % (Manual) Nucleated RBC % Seg Neutrophils # Seg Neutrophils # Man Lymphocytes # (Manual) Monocytes # (Manual) D-Dimer Heparin Anti-Xa Level Sodium Potassium Chloride Carbon Dioxide BUN Creatinine Glucose POC Glucose 191 H 195 H 204 H Lactic Acid Calcium ALT Troponin T C-Reactive Protein Albumin Triglycerides HDL Cholesterol Vitamin B12 Folate 07/13/18 07/14/18 07/14/18 22:38 04:15 04:15 WBC 13.1 H RBC Hgb Hct MCV 107 H MCH 34 H RDW Plt Count Lymph % (Auto) Lymph # Baso # Seg Neutrophils % Seg Neuts % (Manual) 89.0 H Lymphocytes % (Manual) 6.0 L Nucleated RBC % Seg Neutrophils # Seg Neutrophils # Man 11.7 H Lymphocytes # (Manual) 0.8 L Monocytes # (Manual) D-Dimer Heparin Anti-Xa Level Sodium 136 L Potassium Chloride 95.3 L Carbon Dioxide BUN 40 H Creatinine 8.1 H Glucose POC Glucose 190 H Lactic Acid Calcium ALT Troponin T C-Reactive Protein Albumin Triglycerides HDL Cholesterol Vitamin B12 Folate 07/14/18 07/14/18 07/14/18 07:57 12:18 17:24 WBC RBC Hgb Hct MCV MCH RDW Plt Count Lymph % (Auto) Lymph # Baso # Seg Neutrophils % Seg Neuts % (Manual) Lymphocytes % (Manual) Nucleated RBC % Seg Neutrophils # Seg Neutrophils # Man Lymphocytes # (Manual) Monocytes # (Manual) D-Dimer Heparin Anti-Xa Level Sodium Potassium Chloride Carbon Dioxide BUN Creatinine Glucose POC Glucose 205 H 180 H 249 H Lactic Acid Calcium ALT Troponin T C-Reactive Protein Albumin Triglycerides HDL Cholesterol Vitamin B12 Folate 07/14/18 07/15/18 07/15/18 22:19 06:42 06:42 WBC 11.9 H RBC Hgb Hct MCV 105 H MCH 34 H RDW Plt Count Lymph % (Auto) 6.4 L Lymph # 0.8 L Baso # Seg Neutrophils % 89.6 H Seg Neuts % (Manual) Lymphocytes % (Manual) Nucleated RBC % Seg Neutrophils # 10.6 H Seg Neutrophils # Man Lymphocytes # (Manual) Monocytes # (Manual) D-Dimer Heparin Anti-Xa Level Sodium 131 L Potassium 3.5 L Chloride 94.3 L Carbon Dioxide BUN 36 H Creatinine 7.0 H Glucose 166 H POC Glucose 156 H Lactic Acid Calcium 8.1 L ALT Troponin T C-Reactive Protein Albumin Triglycerides HDL Cholesterol Vitamin B12 Folate 07/15/18 07/15/18 07/15/18 08:12 11:46 15:44 WBC RBC Hgb Hct MCV MCH RDW Plt Count Lymph % (Auto) Lymph # Baso # Seg Neutrophils % Seg Neuts % (Manual) Lymphocytes % (Manual) Nucleated RBC % Seg Neutrophils # Seg Neutrophils # Man Lymphocytes # (Manual) Monocytes # (Manual) D-Dimer Heparin Anti-Xa Level Sodium Potassium Chloride Carbon Dioxide BUN Creatinine Glucose POC Glucose 187 H 201 H 169 H Lactic Acid Calcium ALT Troponin T C-Reactive Protein Albumin Triglycerides HDL Cholesterol Vitamin B12 Folate 07/15/18 07/16/18 07/16/18 23:09 00:22 01:52 WBC RBC Hgb Hct MCV MCH RDW Plt Count Lymph % (Auto) Lymph # Baso # Seg Neutrophils % Seg Neuts % (Manual) Lymphocytes % (Manual) Nucleated RBC % Seg Neutrophils # Seg Neutrophils # Man Lymphocytes # (Manual) Monocytes # (Manual) D-Dimer Heparin Anti-Xa Level Sodium Potassium Chloride Carbon Dioxide BUN Creatinine Glucose 234 H POC Glucose < 40 L 203 H Lactic Acid Calcium ALT Troponin T C-Reactive Protein Albumin Triglycerides HDL Cholesterol Vitamin B12 Folate 07/16/18 07/16/18 07/16/18 04:22 05:12 05:12 WBC 14.0 H RBC 3.58 L Hgb Hct MCV 106 H MCH 34 H RDW Plt Count Lymph % (Auto) Lymph # Baso # Seg Neutrophils % Seg Neuts % (Manual) 92.0 H Lymphocytes % (Manual) 4.0 L Nucleated RBC % Seg Neutrophils # Seg Neutrophils # Man 12.9 H Lymphocytes # (Manual) 0.6 L Monocytes # (Manual) D-Dimer Heparin Anti-Xa Level Sodium 130 L Potassium 2.9 L* Chloride 92.9 L Carbon Dioxide BUN 38 H Creatinine 6.8 H Glucose 194 H POC Glucose 194 H Lactic Acid Calcium ALT Troponin T C-Reactive Protein Albumin Triglycerides HDL Cholesterol Vitamin B12 Folate 07/16/18 07/16/18 07/16/18 08:45 12:22 16:42 WBC RBC Hgb Hct MCV MCH RDW Plt Count Lymph % (Auto) Lymph # Baso # Seg Neutrophils % Seg Neuts % (Manual) Lymphocytes % (Manual) Nucleated RBC % Seg Neutrophils # Seg Neutrophils # Man Lymphocytes # (Manual) Monocytes # (Manual) D-Dimer Heparin Anti-Xa Level Sodium Potassium Chloride Carbon Dioxide BUN Creatinine Glucose POC Glucose 155 H 208 H 143 H Lactic Acid Calcium ALT Troponin T C-Reactive Protein Albumin Triglycerides HDL Cholesterol Vitamin B12 Folate 07/16/18 07/17/18 07/18/18 22:02 04:32 00:56 WBC 13.9 H RBC 3.43 L Hgb Hct MCV 106 H MCH 35 H RDW 15.6 H Plt Count Lymph % (Auto) Lymph # Baso # Seg Neutrophils % Seg Neuts % (Manual) 88.0 H Lymphocytes % (Manual) 2.0 L Nucleated RBC % Seg Neutrophils # Seg Neutrophils # Man 12.2 H Lymphocytes # (Manual) 0.3 L Monocytes # (Manual) D-Dimer Heparin Anti-Xa Level Sodium 131 L Potassium Chloride 93.6 L Carbon Dioxide BUN 45 H Creatinine 7.2 H Glucose POC Glucose 115 H Lactic Acid Calcium ALT Troponin T C-Reactive Protein Albumin Triglycerides HDL Cholesterol Vitamin B12 Folate 07/18/18 07/18/18 07/18/18 04:23 16:08 18:24 WBC RBC Hgb Hct MCV MCH RDW Plt Count Lymph % (Auto) Lymph # Baso # Seg Neutrophils % Seg Neuts % (Manual) Lymphocytes % (Manual) Nucleated RBC % Seg Neutrophils # Seg Neutrophils # Man Lymphocytes # (Manual) Monocytes # (Manual) D-Dimer Heparin Anti-Xa Level Sodium Potassium Chloride Carbon Dioxide BUN 22 H Creatinine 4.9 H Glucose 60 L POC Glucose 62 L 116 H Lactic Acid Calcium 7.5 L ALT Troponin T C-Reactive Protein Albumin Triglycerides HDL Cholesterol Vitamin B12 Folate 07/18/18 07/19/18 07/19/18 21:55 11:15 13:04 WBC 13.3 H RBC 3.40 L Hgb Hct MCV 108 H MCH 34 H RDW 16.1 H Plt Count Lymph % (Auto) Lymph # Baso # Seg Neutrophils % Seg Neuts % (Manual) 97.0 H Lymphocytes % (Manual) 1.0 L Nucleated RBC % Seg Neutrophils # Seg Neutrophils # Man 12.9 H Lymphocytes # (Manual) 0.1 L Monocytes # (Manual) D-Dimer Heparin Anti-Xa Level Sodium Potassium Chloride Carbon Dioxide BUN Creatinine Glucose POC Glucose 114 H 109 H Lactic Acid Calcium ALT Troponin T C-Reactive Protein Albumin Triglycerides HDL Cholesterol Vitamin B12 Folate 07/19/18 07/19/18 07/20/18 22:18 23:41 07:18 WBC RBC Hgb Hct MCV MCH RDW Plt Count Lymph % (Auto) Lymph # Baso # Seg Neutrophils % Seg Neuts % (Manual) Lymphocytes % (Manual) Nucleated RBC % Seg Neutrophils # Seg Neutrophils # Man Lymphocytes # (Manual) Monocytes # (Manual) D-Dimer Heparin Anti-Xa Level Sodium Potassium Chloride Carbon Dioxide BUN Creatinine Glucose POC Glucose 52 L 132 H 108 H Lactic Acid Calcium ALT Troponin T C-Reactive Protein Albumin Triglycerides HDL Cholesterol Vitamin B12 Folate 07/20/18 07/20/18 07/20/18 12:07 16:48 21:52 WBC RBC Hgb Hct MCV MCH RDW Plt Count Lymph % (Auto) Lymph # Baso # Seg Neutrophils % Seg Neuts % (Manual) Lymphocytes % (Manual) Nucleated RBC % Seg Neutrophils # Seg Neutrophils # Man Lymphocytes # (Manual) Monocytes # (Manual) D-Dimer Heparin Anti-Xa Level Sodium Potassium Chloride Carbon Dioxide BUN Creatinine Glucose POC Glucose 120 H 151 H 146 H Lactic Acid Calcium ALT Troponin T C-Reactive Protein Albumin Triglycerides HDL Cholesterol Vitamin B12 Folate 07/21/18 07/21/18 07/21/18 07:37 16:26 21:39 WBC RBC Hgb Hct MCV MCH RDW Plt Count Lymph % (Auto) Lymph # Baso # Seg Neutrophils % Seg Neuts % (Manual) Lymphocytes % (Manual) Nucleated RBC % Seg Neutrophils # Seg Neutrophils # Man Lymphocytes # (Manual) Monocytes # (Manual) D-Dimer Heparin Anti-Xa Level Sodium Potassium Chloride Carbon Dioxide BUN Creatinine Glucose POC Glucose 67 L 123 H 127 H Lactic Acid Calcium ALT Troponin T C-Reactive Protein Albumin Triglycerides HDL Cholesterol Vitamin B12 Folate 07/22/18 07/22/18 07/22/18 07:24 07:24 11:43 WBC 15.4 H RBC 3.26 L Hgb Hct MCV 108 H MCH 34 H RDW 16.4 H Plt Count Lymph % (Auto) Lymph # Baso # Seg Neutrophils % Seg Neuts % (Manual) 95.0 H Lymphocytes % (Manual) 1.0 L Nucleated RBC % Seg Neutrophils # Seg Neutrophils # Man 14.6 H Lymphocytes # (Manual) 0.2 L Monocytes # (Manual) D-Dimer Heparin Anti-Xa Level Sodium 135 L Potassium Chloride Carbon Dioxide BUN 28 H Creatinine 5.9 H Glucose POC Glucose 107 H Lactic Acid Calcium 8.3 L ALT Troponin T C-Reactive Protein Albumin Triglycerides HDL Cholesterol Vitamin B12 Folate 07/22/18 16:01 WBC RBC Hgb Hct MCV MCH RDW Plt Count Lymph % (Auto) Lymph # Baso # Seg Neutrophils % Seg Neuts % (Manual) Lymphocytes % (Manual) Nucleated RBC % Seg Neutrophils # Seg Neutrophils # Man Lymphocytes # (Manual) Monocytes # (Manual) D-Dimer Heparin Anti-Xa Level Sodium Potassium Chloride Carbon Dioxide BUN Creatinine Glucose POC Glucose 152 H Lactic Acid Calcium ALT Troponin T C-Reactive Protein Albumin Triglycerides HDL Cholesterol Vitamin B12 Folate Allied health notes reviewed: nursing
[2018-07-22] MEDS: MAXIPIME/NS 1 GM/100 ML 1 GM/100 ML BAG IV SCH (21:27)
--- NOTE | 2018-07-23 07:42 | Hem/Onc Progress Note ---
Assessment and Plan 1. Left leg deep venous thrombosis. The patient was on heparin drip. The patient is on peritoneal dialysis. The dose of Eliquis or any direct thrombin inhibitors or other anticoagulation monitoring may become challenging. 2. MCV elevated. We will follow - low folate - on Rx. 3. Elevated D-dimers. - DVT - Rx eliquis 4. History of renal failure,was on peritoneal dialysis. Later HD 5. History of hypertension. She was hypotensive at admission. 6. History of diabetes. 7. I will follow the patient during inpatient stay and then in the clinic setting for anticoagulation management. 8 - fever Issues - Id following - on Abx 07/05 - d/w dr cartagena - pharmacy to help reg NOAC - ? eliquis 2.5 q 12? 07/06 - pharmacy has placed pt on 5 mg q 12 07/08 - pt on eliquis - d/w dr noyola - Placement pending gets PD 07/09 - pt had fever on eliquis for left leg dvt. h/o abdo discomfort - on and off 07/10/2018 DVT - on eliquis c/o abdo discomfort - d/w dr andrade - US abdo elevated MCV - low folate - replace ESRD on PD h/o fever 07/11 US abdo done - report pending Leukocytosis - seen by ID on eliquis 07/13/2018 pt says PD catheter not working US abdo done ID - for Abx eliquis for DVT 07/14 DVT - eliquis WBC high - on Abx MCV elevated - low folate - on Rx on Pd 07/15 dvt - on eliquis h/o anemia - on procrit - folic acid on PD for CKD OP follow up from hem perspective 07/16 HD cath PD cath removal being looked into DVT - on eliquis - reviewed dose for HD 07/17 DVT leg - on eliquis anemia - procrit for HD folic acid 07/18 PD cath infection - removal planned DVT on eliquis has HD cath h/o fever - ID following 07/19 PD cath removed pending OP HD chair DVT leg - on eliquis d/w bozena 07/23 saw pt after a gap of few days pt on eliquis for dvt CKD on Dialysis d/w pt reg DVT - eliquis low folate - on meds - Patient Problems (1) DVT (deep venous thrombosis) Status: Acute Qualifiers: DVT location: lower extremity Chronicity: acute Subjective Date of service: 07/23/18 Principal diagnosis: dvt leg Interval history: no bleeding Objective - Constitutional Vitals: Last Vital Signs Temp 98.4 F 07/22/18 21:07 Pulse 78 07/23/18 02:02 Resp 18 07/23/18 02:02 BP 86/44 07/23/18 02:02 Pulse Ox 99 07/23/18 02:02 Pain Intensity (0-10): denies any pain General appearance: no acute distress Performance status: 3-limited selfcare - EENT Eyes: EOM intact ENT: clear oral mucosa Lymph node exam: negative cervical - Neck Neck: normal ROM - Respiratory Respiratory effort: Positive: normal Respiratory: bilateral: CTA - Cardiovascular Heart Sounds: Present: S1 & S2 Extremity abnormal: edema - Gastrointestinal General gastrointestinal: Present: soft Rectal Exam: deferred - Genitourinary Female genitourinary: Present: deferred - Integumentary Integumentary: warm - Musculoskeletal Musculoskeletal: generalized weakness - Neurologic Neurologic: moves all extremities - Labs Lab Results: Laboratory Results - last 24 hr 07/22/18 07/22/18 07/22/18 07:22 07:24 07:24 WBC 15.4 H RBC 3.26 L Hgb 11.1 Hct 35.1 MCV 108 H MCH 34 H MCHC 32 RDW 16.4 H Plt Count 190 Add Manual Diff Complete Total Counted 100 Seg Neuts % (Manual) 95.0 H Band Neutrophils % 3.0 Lymphocytes % (Manual) 1.0 L Reactive Lymphs % (Man) 0 Monocytes % (Manual) 1.0 Eosinophils % (Manual) 0 Basophils % (Manual) 0 Metamyelocytes % 0 Myelocytes % 0 Promyelocytes % 0 Blast Cells % 0 Nucleated RBC % Not Reportable Seg Neutrophils # Man 14.6 H Band Neutrophils # 0.5 Lymphocytes # (Manual) 0.2 L Abs React Lymphs (Man) 0.0 Monocytes # (Manual) 0.2 Eosinophils # (Manual) 0.0 Basophils # (Manual) 0.0 Metamyelocytes # 0.0 Myelocytes # 0.0 Promyelocytes # 0.0 Blast Cells # 0.0 WBC Morphology Not Reportable Hypersegmented Neuts Not Reportable Hyposegmented Neuts Not Reportable Hypogranular Neuts Not Reportable Smudge Cells Not Reportable Toxic Granulation Not Reportable Toxic Vacuolation Few Dohle Bodies Not Reportable Pelger-Huet Anomaly Not Reportable Nomi Rods Not Reportable Platelet Estimate Consistent w auto Clumped Platelets Rare Plt Clumps, EDTA Not Reportable Large Platelets Not Reportable Giant Platelets Not Reportable Platelet Satelliting Not Reportable Plt Morphology Comment Not Reportable RBC Morphology Not Reportable Dimorphic RBCs Not Reportable Polychromasia Few Hypochromasia Not Reportable Poikilocytosis Not Reportable Anisocytosis 1+ Microcytosis Not Reportable Macrocytosis Not Reportable Spherocytes Not Reportable Pappenheimer Bodies Not Reportable Sickle Cells Not Reportable Target Cells Not Reportable Tear Drop Cells Not Reportable Ovalocytes Not Reportable Helmet Cells Not Reportable Barnhart-Sherrelwood Bodies Not Reportable [place] Rings Not Reportable [place] Cells Not Reportable Bite Cells Not Reportable Crenated Cell Not Reportable Elliptocytes Not Reportable Acanthocytes (Spur) Not Reportable Rouleaux Not Reportable Hemoglobin C Crystals Not Reportable Schistocytes Few Malaria parasites Not Reportable Navneet Bodies Not Reportable Hem Pathologist Commnt No Sodium 135 L Potassium TNR Chloride 102.3 Carbon Dioxide 23 Anion Gap 16 BUN 28 H Creatinine 5.9 H Estimated GFR 9 BUN/Creatinine Ratio 5 Glucose 85 POC Glucose 92 Calcium 8.3 L Hepatitis A IgM Ab Hep Bs Antigen Hep B Core IgM Ab Hepatitis C Antibody 07/22/18 07/22/18 07/22/18 08:25 11:43 14:16 WBC RBC Hgb Hct MCV MCH MCHC RDW Plt Count Add Manual Diff Total Counted Seg Neuts % (Manual) Band Neutrophils % Lymphocytes % (Manual) Reactive Lymphs % (Man) Monocytes % (Manual) Eosinophils % (Manual) Basophils % (Manual) Metamyelocytes % Myelocytes % Promyelocytes % Blast Cells % Nucleated RBC % Seg Neutrophils # Man Band Neutrophils # Lymphocytes # (Manual) Abs React Lymphs (Man) Monocytes # (Manual) Eosinophils # (Manual) Basophils # (Manual) Metamyelocytes # Myelocytes # Promyelocytes # Blast Cells # WBC Morphology Hypersegmented Neuts Hyposegmented Neuts Hypogranular Neuts Smudge Cells Toxic Granulation Toxic Vacuolation Dohle Bodies Pelger-Huet Anomaly Nomi Rods Platelet Estimate Clumped Platelets Plt Clumps, EDTA Large Platelets Giant Platelets Platelet Satelliting Plt Morphology Comment RBC Morphology Dimorphic RBCs Polychromasia Hypochromasia Poikilocytosis Anisocytosis Microcytosis Macrocytosis Spherocytes Pappenheimer Bodies Sickle Cells Target Cells Tear Drop Cells Ovalocytes Helmet Cells Barnhart-Sherrelwood Bodies [place] Rings Edgar Cells Bite Cells Crenated Cell Elliptocytes Acanthocytes (Spur) Rouleaux Hemoglobin C Crystals Schistocytes Malaria parasites Navneet Bodies Hem Pathologist Commnt Sodium Potassium 3.7 Chloride Carbon Dioxide Anion Gap BUN Creatinine Estimated GFR BUN/Creatinine Ratio Glucose POC Glucose 107 H Calcium Hepatitis A IgM Ab Non-reactive Hep Bs Antigen Non-reactive Hep B Core IgM Ab Non-reactive Hepatitis C Antibody Non-reactive 07/22/18 07/22/18 07/23/18 16:01 21:59 07:19 WBC RBC Hgb Hct MCV MCH MCHC RDW Plt Count Add Manual Diff Total Counted Seg Neuts % (Manual) Band Neutrophils % Lymphocytes % (Manual) Reactive Lymphs % (Man) Monocytes % (Manual) Eosinophils % (Manual) Basophils % (Manual) Metamyelocytes % Myelocytes % Promyelocytes % Blast Cells % Nucleated RBC % Seg Neutrophils # Man Band Neutrophils # Lymphocytes # (Manual) Abs React Lymphs (Man) Monocytes # (Manual) Eosinophils # (Manual) Basophils # (Manual) Metamyelocytes # Myelocytes # Promyelocytes # Blast Cells # WBC Morphology Hypersegmented Neuts Hyposegmented Neuts Hypogranular Neuts Smudge Cells Toxic Granulation Toxic Vacuolation Dohle Bodies Pelger-Huet Anomaly Nomi Rods Platelet Estimate Clumped Platelets Plt Clumps, EDTA Large Platelets Giant Platelets Platelet Satelliting Plt Morphology Comment RBC Morphology Dimorphic RBCs Polychromasia Hypochromasia Poikilocytosis Anisocytosis Microcytosis Macrocytosis Spherocytes Pappenheimer Bodies Sickle Cells Target Cells Tear Drop Cells Ovalocytes Helmet Cells Barnhart-Sherrelwood Bodies [place] Rings [place] Cells Bite Cells Crenated Cell Elliptocytes Acanthocytes (Spur) Rouleaux Hemoglobin C Crystals Schistocytes Malaria parasites Navneet Bodies Hem Pathologist Commnt Sodium Potassium Chloride Carbon Dioxide Anion Gap BUN Creatinine Estimated GFR BUN/Creatinine Ratio Glucose POC Glucose 152 H 88 64 L Calcium Hepatitis A IgM Ab Hep Bs Antigen Hep B Core IgM Ab Hepatitis C Antibody Medications & Allergies - Medications Allergies/Adverse Reactions: Allergies No Known Allergies Allergy (Verified 08/18/14 08:52) Home Medications: Home Medications Medication Instructions Recorded Confirmed Last Taken Type Calcitriol [Rocaltrol] 0.5 mcg PO QDAY 06/29/18 06/29/18 Unknown History Simvastatin [Zocor] 20 mg PO DAILY 06/29/18 06/29/18 Unknown History Apixaban [Eliquis] 5 mg PO Q12HR tablet 07/15/18 Unknown Rx Aspirin [Aspirin BABY CHEW TAB] 81 mg PO QDAY tab.chew 07/15/18 Unknown Rx AtorvaSTATin [Lipitor] 40 mg PO QHS tablet 07/15/18 Unknown Rx Cefepime/Ns 1 gm/100 ml 1 gm IV Q24HR 21 Days piggyback 07/15/18 Unknown Rx [Maxipime/Ns 1 gm/100 ml] Docusate Sodium [Colace CAP] 100 mg PO BID capsule 07/15/18 Unknown Rx Fludrocortisone [Florinef] 0.1 mg PO QDAY tablet 07/15/18 Unknown Rx Folic Acid [Folvite] 1 mg PO QDAY tablet 07/15/18 Unknown Rx Lactulose [Cephulac] 20 gm PO TID PRN oral.liqd 07/15/18 Unknown Rx Lispro Insulin [Humalog] 0 unit SUB-Q ACHS units 07/15/18 Unknown Rx Midodrine [Proamatine] 10 mg PO TID tablet 07/15/18 Unknown Rx Pantoprazole [Protonix TAB] 40 mg PO QDAY tablet 07/15/18 Unknown Rx Polyethylene Glycol 3350 [Miralax 17 gm PO QDAY powd.pack 07/15/18 Unknown Rx 3350] Sevelamer Carbonate [Renvela] 1,600 mg PO TIDWM tablet 07/15/18 Unknown Rx Apixaban [Eliquis] 5 mg PO Q12HR #60 tablet 07/23/18 Unknown Rx Dicyclomine [Bentyl] 10 mg PO QID PRN #15 capsule 07/23/18 Unknown Rx Active Medications: Generic Name Dose Route Start Last Admin Trade Name Freq PRN Reason Stop Dose Admin Acetaminophen 650 mg 07/15/18 12:55 07/15/18 13:53 Tylenol PO 650 mg Q4H PRN Administration Pain, Mild (1-3) Apixaban 5 mg 07/18/18 22:00 07/22/18 21:30 Eliquis PO 5 mg Q12HR DIANE Administration Protocol Aspirin 81 mg 06/29/18 13:00 07/22/18 12:24 Baby Aspirin PO 81 mg QDAY DIANE Administration Atorvastatin Calcium 40 mg 06/29/18 22:00 07/22/18 21:30 Lipitor PO 40 mg QHS DIANE Administration Calcitriol 0.5 mcg 06/29/18 13:00 07/22/18 11:49 Rocaltrol PO 0.5 mcg QDAY DIANE Administration Docusate Sodium 100 mg 07/02/18 10:00 07/22/18 21:30 Colace PO 100 mg BID DIANE Administration Fludrocortisone Acetate 0.1 mg 07/15/18 14:00 07/22/18 11:48 Florinef PO 0.1 mg QDAY DIANE Administration Folic Acid 1 mg 07/10/18 14:00 07/22/18 12:24 Folvite PO 1 mg QDAY DIANE Administration Heparin Sodium (Porcine) 5,000 unit 07/16/18 18:52 Heparin IV THOMAS PRN hemodialysis Hydrocortisone Acetate 20 mg 07/20/18 11:30 07/22/18 11:48 Cortef PO 07/24/18 10:01 20 mg QDAY DIANE Administration Sodium Chloride 100 mls @ 999 mls/hr 07/16/18 18:52 Nacl 0.9% IV THOMAS PRN Hypotension Cefepime HCl 1 gm in 100 mls @ 200 mls/hr 07/16/18 22:00 07/22/18 22:56 Maxipime/Ns 1 Gm/100 Ml IV 08/01/18 23:59 Infused QHS DIANE Infusion Protocol Vancomycin HCl 1 gm in 250 mls @ 167.007 mls/hr 07/17/18 18:00 07/22/18 21:34 Vancomycin/Ns 1 Gm/250 Ml IV 08/01/18 23:59 Infused [id number] DIANE Infusion Sodium Chloride 1,000 mls @ 42 mls/hr 07/18/18 14:00 07/18/18 14:10 Nacl 0.9% 1000 Ml IV 42 mls/hr DIRECT DIANE Administration Insulin Human Lispro 0 unit 06/29/18 22:00 07/22/18 22:56 Humalog SUB-Q Not Given ACHS DIANE Protocol Lactulose 20 gm 07/13/18 12:00 Cephulac PO TID PRN Constipation Midodrine 10 mg 07/01/18 14:00 07/22/18 20:49 Proamatine PO 10 mg TID DIANE Administration Morphine Sulfate 2 mg 07/08/18 14:51 07/22/18 15:41 Morphine IV 2 mg Q4H PRN Administration Pain, Moderate (4-6) Oxycodone/Acetaminophen 1 tab 07/22/18 17:43 Percocet 5/325 PO Q6H PRN Pain, Moderate (4-6) Pantoprazole Sodium 40 mg 07/08/18 10:00 07/22/18 11:47 Protonix PO 40 mg QDAY DIANE Administration Polyethylene Glycol 17 gm 07/02/18 10:00 07/22/18 10:40 Miralax 3350 PO Not Given QDAY DIANE Sevelamer Carbonate 1,600 mg 06/29/18 12:00 07/22/18 16:14 Renvela PO Not Given TIDWM DIANE
[2018-07-23] MEDS: HumaLOG SUB-Q SCH ×3 (08:04→17:30)
[2018-07-23] MEDS: PROAMATINE PO SCH ×2 (08:29→13:16)
[2018-07-23] MEDS: RENVELA PO SCH ×3 (08:29→17:27)
--- NOTE | 2018-07-23 09:16 | Progress Note ---
Assessment and Plan Impression: * End stage renal disease on PD * Catheter associated peritonitis * Hypotension * LE DVT * Elevated troponin --TTE: LVEF 55-60% --Strest shannon: nml perfusion, nml LV function * Deconditioning * Hypokalemia * Secondary hyperparathyroidism * Erythrocytosis, resolved - ?secondary to hemoconcentration vs other --Renal u/s: no mass, small bilateral cysts Plan: * Continue MWF schedule * UF as tolerated * Midodrine 10mg TID; also receiving Florinef and Cortef * Continue abx * Anticoagulation per primary team * Replete lytes prn * Renal diet * Dose medications for renal function * Lactulose prn * Awaiting TANESHA placement * Subjective Date of service: 07/23/18 Principal diagnosis: dvt leg Interval history: Patient reports constipation Objective - Vital Signs Vital signs: Vital Signs - 12hr 07/22/18 07/23/18 07/23/18 22:00 02:02 07:17 Temperature 97.6 F Pulse Rate 78 83 Pulse Rate [ 98 H From Monitor] Respiratory 18 18 Rate Blood Pressure 86/44 80/49 O2 Sat by Pulse 98 99 100 Oximetry - General Appearance General appearance: well-developed, well-nourished EENT: ATNC Respiratory: Present: Clear to Ascultation Cardiology: regular, S1S2 Gastrointestinal: normoactive bowel sounds, no distended Integumentary: no rash, warm and dry Psychiatric: cooperative - Lab 07/22/18 07:24 07/22/18 08:25 Most recent lab results Calcium 8.3 mg/dL (8.4-10.2) L 07/22/18 07:24 Medications & Allergies - Medications Allergies/Adverse Reactions: Allergies No Known Allergies Allergy (Verified 08/18/14 08:52) Home Medications: Home Medications Medication Instructions Recorded Confirmed Last Taken Type Calcitriol [Rocaltrol] 0.5 mcg PO QDAY 06/29/18 06/29/18 Unknown History Simvastatin [Zocor] 20 mg PO DAILY 06/29/18 06/29/18 Unknown History Apixaban [Eliquis] 5 mg PO Q12HR tablet 07/15/18 Unknown Rx Aspirin [Aspirin BABY CHEW TAB] 81 mg PO QDAY tab.chew 07/15/18 Unknown Rx AtorvaSTATin [Lipitor] 40 mg PO QHS tablet 07/15/18 Unknown Rx Cefepime/Ns 1 gm/100 ml 1 gm IV Q24HR 21 Days piggyback 07/15/18 Unknown Rx [Maxipime/Ns 1 gm/100 ml] Docusate Sodium [Colace CAP] 100 mg PO BID capsule 07/15/18 Unknown Rx Fludrocortisone [Florinef] 0.1 mg PO QDAY tablet 07/15/18 Unknown Rx Folic Acid [Folvite] 1 mg PO QDAY tablet 07/15/18 Unknown Rx Lactulose [Cephulac] 20 gm PO TID PRN oral.liqd 07/15/18 Unknown Rx Lispro Insulin [Humalog] 0 unit SUB-Q ACHS units 07/15/18 Unknown Rx Midodrine [Proamatine] 10 mg PO TID tablet 07/15/18 Unknown Rx Pantoprazole [Protonix TAB] 40 mg PO QDAY tablet 07/15/18 Unknown Rx Polyethylene Glycol 3350 [Miralax 17 gm PO QDAY powd.pack 07/15/18 Unknown Rx 3350] Sevelamer Carbonate [Renvela] 1,600 mg PO TIDWM tablet 07/15/18 Unknown Rx Apixaban [Eliquis] 5 mg PO Q12HR #60 tablet 07/23/18 Unknown Rx Dicyclomine [Bentyl] 10 mg PO QID PRN #15 capsule 07/23/18 Unknown Rx Active Medications: Generic Name Dose Route Start Last Admin Trade Name Freq PRN Reason Stop Dose Admin Acetaminophen 650 mg 07/15/18 12:55 07/15/18 13:53 Tylenol PO 650 mg Q4H PRN Administration Pain, Mild (1-3) Apixaban 5 mg 07/18/18 22:00 07/22/18 21:30 Eliquis PO 5 mg Q12HR DIANE Administration Protocol Aspirin 81 mg 06/29/18 13:00 07/22/18 12:24 Baby Aspirin PO 81 mg QDAY DIANE Administration Atorvastatin Calcium 40 mg 06/29/18 22:00 07/22/18 21:30 Lipitor PO 40 mg QHS DIANE Administration Calcitriol 0.5 mcg 06/29/18 13:00 07/22/18 11:49 Rocaltrol PO 0.5 mcg QDAY DIANE Administration Docusate Sodium 100 mg 07/02/18 10:00 07/22/18 21:30 Colace PO 100 mg BID DIANE Administration Fludrocortisone Acetate 0.1 mg 07/15/18 14:00 07/22/18 11:48 Florinef PO 0.1 mg QDAY DIANE Administration Folic Acid 1 mg 07/10/18 14:00 07/22/18 12:24 Folvite PO 1 mg QDAY DIANE Administration Heparin Sodium (Porcine) 5,000 unit 07/16/18 18:52 Heparin IV THOMAS PRN hemodialysis Hydrocortisone Acetate 20 mg 07/20/18 11:30 07/22/18 11:48 Cortef PO 07/24/18 10:01 20 mg QDAY DIANE Administration Sodium Chloride 100 mls @ 999 mls/hr 07/16/18 18:52 Nacl 0.9% IV THOMAS PRN Hypotension Cefepime HCl 1 gm in 100 mls @ 200 mls/hr 07/16/18 22:00 07/22/18 22:56 Maxipime/Ns 1 Gm/100 Ml IV 08/01/18 23:59 Infused QHS DIANE Infusion Protocol Vancomycin HCl 1 gm in 250 mls @ 167.007 mls/hr 07/17/18 18:00 07/22/18 21:34 Vancomycin/Ns 1 Gm/250 Ml IV 08/01/18 23:59 Infused [id number] DIANE Infusion Sodium Chloride 1,000 mls @ 42 mls/hr 07/18/18 14:00 07/18/18 14:10 Nacl 0.9% 1000 Ml IV 42 mls/hr DIRECT DIANE Administration Insulin Human Lispro 0 unit 06/29/18 22:00 07/22/18 22:56 Humalog SUB-Q Not Given ACHS [facility] Protocol Lactulose 20 gm 07/13/18 12:00 Cephulac PO TID PRN Constipation Midodrine 10 mg 07/01/18 14:00 07/23/18 08:29 Proamatine PO 10 mg TID DIANE Administration Morphine Sulfate 2 mg 07/08/18 14:51 07/22/18 15:41 Morphine IV 2 mg Q4H PRN Administration Pain, Moderate (4-6) Oxycodone/Acetaminophen 1 tab 07/22/18 17:43 Percocet 5/325 PO Q6H PRN Pain, Moderate (4-6) Pantoprazole Sodium 40 mg 07/08/18 10:00 07/22/18 11:47 Protonix PO 40 mg QDAY DIANE Administration Polyethylene Glycol 17 gm 07/02/18 10:00 07/22/18 10:40 Miralax 3350 PO Not Given QDAY DIANE Sevelamer Carbonate 1,600 mg 06/29/18 12:00 07/23/18 08:29 Renvela PO 1,600 mg TIDWM DIANE Administration
[2018-07-23] MEDS: CORTEF PO SCH (09:25)
[2018-07-23] MEDS: ELIQUIS PO SCH (09:25)
[2018-07-23] MEDS: MIRALAX 3350 PO SCH (09:25)
[2018-07-23] MEDS: BABY ASPIRIN PO SCH (09:25)
[2018-07-23] MEDS: ROCALTROL PO SCH (09:25)
[2018-07-23] MEDS: COLACE PO SCH (09:25)
[2018-07-23] MEDS: FOLVITE PO SCH (09:26)
[2018-07-23] MEDS: FLORINEF PO SCH (09:26)
[2018-07-23] MEDS: PROTONIX PO SCH (09:26)
[2018-07-23] MEDS: TYLENOL PO PRN ×2 (10:27→17:27)
--- NOTE | 2018-07-23 11:15 | XRay Report ---
AP CHEST: HISTORY: Shortness of breath A right IJ dual-lumen catheter has been inserted since 07/08/18. Minor discoid atelectatic changes are noted in the lower lung zones. No evidence for infiltrate, pleural effusion or pneumothorax. Borderline heart size. Normal pulmonary vascularity. IMPRESSION: Borderline heart size. Minor atelectatic changes in the lower lung zones.
--- NOTE | 2018-07-23 13:23 | Discharge Summary ---
Providers - Providers Date of Admission: 06/29/18 09:13 Attending physician: SHAWNA DING MD 06/29/18 00:05 Consult to Physician [CONS] Stat Comment: Dr. Lucia spoke with Dr. Crawford @ [id number] Consulting Provider: FEROZ CRAWFORD Physician Instructions: Reason For Exam: esrd 06/29/18 07:56 Consult to Physician [CONS] Routine Comment: DR BARNETT NOTIFIED [id number] Consulting Provider: ELSY BARNETT Physician Instructions: Reason For Exam: IV access 06/29/18 09:15 Consult to Physician [CONS] Routine Comment: Consulting Provider: LAWANDA MCELROY Physician Instructions: Reason For Exam: septic shock 06/29/18 09:17 Consult to Physician [CONS] Routine Comment: dr crawford notified Consulting Provider: ISMA DAVILA Physician Instructions: Reason For Exam: esrd 07/03/18 11:02 Consult to Physician [CONS] Routine Comment: Consulting Provider: JENNA MOTLEY Physician Instructions: Reason For Exam: DVT lower ext 07/08/18 13:33 Consult to Dietitian/Nutrition [CONS] Routine Physician Instructions: Reason For Exam: Reason for Consult: Poor oral intake 07/10/18 09:16 Consult to Physician [CONS] Routine Comment: Consulting Provider: LORETA LANDEROS Physician Instructions: Reason For Exam: sirs 07/15/18 18:22 Consult to Physician [CONS] Routine Comment: called answ. serv./left mess, answ. machine/beck Consulting Provider: SOFYA GEE I Physician Instructions: Reason For Exam: pd catheter removal Consult to Physician [CONS] Routine Comment: called answ. service/beck Consulting Provider: ELSY BARNETT Physician Instructions: Reason For Exam: perm cath placement 07/17/18 06:38 Physical Therapy Evaluation and Treat [CONS] Routine Comment: Reason For Exam: Loss of functional mobility Mode of Transport?: Wheelchair Weight bearing status?: Full wt bearing Assistive devices?: No 07/18/18 16:50 Consult to Case Management [CONS] Urgent Services Needed at Discharge: Other Notified:: no Additional Physician Instructions: [facility] ([facility] M [phone] O [phone] F [phone] OUTPATIENT PARENTERAL ANTIBIOTIC THERAPY ORDERS Diagnoses: PD associated peritonititis Antimicrobial administration: Anticipate discharge on Ceftazidime IV 2gms Sunday, 2gms Sunday and 3 gms Sunday and Vancomycin 1gm post HD for 2 weeks ending 08-01-18 Lab monitoring: CBC, ALT, AST, Vancomycin trough once a week preferly on Sunday morning. Please fax results to [phone] and call [phone] for critical lab results. Alka Varner NP/Dr. Landeros Date: 07/18/18 Primary care physician: JENNYFER OLVERA Hospitalization Reason for admission: sepsis Condition: Stable Hospital course: Patient is a 67-year-old female past medical history of end-stage renal disease on peritoneal dialysis, hypertension hyperlipidemia, diabetes mellitus type 2 on diet control presented to ER by EMS after having a fall. She states that she fell at home from her bed around 9 AM this morning but she had no loss of consciousness. She was unable to get up from the bed as she was feeling very weak . She was on the floor chills 5 PM. Her family called emergency services to break into her house . She was then brought to the ER for further evaluation and management . She noted to have highly elevated d-dimer, elevated white count. In the ED, patient was hypotensive w/ WBC 24.8. CTA chest was unremarkable. V/Q scan was also low prob PE. She denies fever, chills. She denies SOB, cough. She denies abdominal pain, nausea, vomiting. PD fluid has been clear. She was placed on Levophed, given IV Rocephin and then called for admission for further evaluation and management. Multiple attempts were made to place a central line which has been failed, vascular was consulted from the ER. (1) DVT (deep venous thrombosis) DVT continue present anticoagulation. Eliquis (2) ESRD (end stage renal disease) Continue hemodialysis as we are doing. Current creatinine 5.9. No evidence of metabolic encephalopathy at this time. (3) HTN (hypertension) At present blood pressure well controlled. (4) NSTEMI (non-ST elevated myocardial infarction) Current Visit: Yes Status: Acute (5) Obesity (BMI 30.0-34.9) Current Visit: Yes Status: Acute (6) Sepsis Sepsis secondary to her peritonitis Patient still has some abdominal pain. At present patient appears to be tolerating by mouth. I think adding oral pain medication should be better than morphine at this time. Will give short trial of Percocet and frequent pain assessments. Cefepime and vanco. She had fever curve appears to be coming down. Leukocytosis of 15. (7) Abdominal pain At present the pain does not appear to be severe. Clearly on exam and reproduction of the abdomen area there is no significant pain at that time. patient was weaned off morphine (8) Hypotension Current Visit: Yes Status: Acute Plan to address problem: Patient with chronic hypertension continue milrinone Disposition: [id number]/[place]-[id number] [facility] Time spent for discharge: 35 mins Core Measure Documentation - Palliative Care Palliative Care/ Comfort Measures: Not Applicable - Core Measures Any of the following diagnoses?: none Exam - Physical Exam Narrative exam: General appearance: Present: no acute distress, obese - EENT Eyes: Present: PERRL, EOM intact ENT: hearing intact, clear oral mucosa, dentition normal, no oropharyngeal erythema, no poor dentition, no thrush - Neck Neck: Present: supple, normal ROM. Absent: enlarged thyroid, masses or JVD, cervical LAD - Respiratory Respiratory: bilateral: CTA - Cardiovascular Rhythm: regular Heart Sounds: Present: S1 & S2 - Extremities Extremities: no ischemia, pulses intact, pulses symmetrical, No edema, normal temperature, normal color, Full ROM Peripheral Pulses: within normal limits - Abdominal General gastrointestinal: soft, non-tender, non-distended, normal bowel sounds - Integumentary Integumentary: Present: clear, warm, dry, erythema - Psychiatric Psychiatric: appropriate mood/affect, intact judgment & insight, memory intact - Neurologic Neurologic: focal deficits, moves all extremities - Constitutional Vitals: Temp Pulse Resp BP Pulse Ox 97.6 F 83 18 80/49 100 07/23/18 07:17 07/23/18 07:17 07/23/18 11:27 07/23/18 07:17 07/23/18 07:17 Plan Activity: advance as tolerated, fall precautions Diet: renal Special Instructions: restrict fluid intake to ( DIRECTED BY PRIMARY NEPHRO LOGIST), record daily weights, record daily BP diary Follow up with: JENNYFER OLVERA MD [Primary Care Provider] - 3-5 Days JENNA MOTLEY MD [Staff Physician] - 7 Days FEROZ CRAWFORD MD [Staff Physician] - 7 Days LAWANDA MCELROY MD [Staff Physician] - 7 Days Prescriptions: Dicyclomine [Bentyl] 10 mg PO QID PRN #15 capsule PRN Reason: Pain, Moderate (4-6) Apixaban [Eliquis] 5 mg PO Q12HR #60 tablet Cefepime/Ns 1 gm/100 ml [Maxipime/Ns 1 gm/100 ml] 1 gm IV Q24HR 21 Days piggyback
--- NOTE | 2018-07-23 13:53 | Progress Note ---
Assessment and Plan Patient is sleeping on room air.O2 saturation 98% . Patient Obese. Patient afebrile and has no leukocytosis.Patient receiving cefepime. Patient has dialysis and physical therapy to day. Having excessive day time sleepiness. Recommend sleep study as out patient.Venous doppler studies reported extensive left leg DVT.Patient is on Apixaban.. - Patient Problems (1) NSTEMI (non-ST elevated myocardial infarction) Current Visit: Yes Status: Acute Plan to address problem: Management as per cardiology. (2) HTN (hypertension) Current Visit: Yes Status: Acute Plan to address problem: Management as per primary care. (3) Diabetes Current Visit: Yes Status: Chronic Plan to address problem: Mangement as per primary care. (4) ESRD on peritoneal dialysis Current Visit: Yes Status: Acute Plan to address problem: Management as per Nephrology. Patient is on peritoneal dialysis. (5) Elevated d-dimer Current Visit: Yes Status: Acute Plan to address problem: Perfusion lung scan reported low probability for pulmonary emboli. Venous doppler studies of legs reported extensive left leg DVT. Patient is on Apixaban (6) Obesity (BMI 30.0-34.9) Current Visit: Yes Status: Acute Plan to address problem: Diet and exercise to loose weight. Sleep study as out patient. (7) DVT (deep venous thrombosis) Current Visit: Yes Status: Acute Qualifiers: DVT location: lower extremity Chronicity: acute Plan to address problem: Patients venous doppler studies reported extensive left leg DVT. Patient is on Apixaban. Subjective Date of service: 07/23/18 Principal diagnosis: dvt leg Interval history: Patient is sleeping on room air.O2 saturation 98% . Patient Obese. Patient afebrile and has no leukocytosis. Patient receiving cefepime. Patient has dialysis and physical therapy to day. Having excessive day time sleepiness. Recommend sleep study as out patient. Venous doppler studies reported extensive left leg DVT. Patient is on Apixaban. Objective Vital Signs - 12hr 07/23/18 07/23/18 07/23/18 02:02 07:17 10:00 Temperature 97.6 F Pulse Rate 78 83 Respiratory 18 18 20 Rate Blood Pressure 86/44 80/49 O2 Sat by Pulse 99 100 Oximetry 07/23/18 07/23/18 10:27 11:27 Temperature Pulse Rate Respiratory 18 18 Rate Blood Pressure O2 Sat by Pulse Oximetry Constitutional: no acute distress, alert Eyes: non-icteric ENT: oropharynx moist, other (mallampati 3) Neck: supple, no lymphadenopathy, no JVD, other (large neck circumference) Effort: normal Ascultation: Bilateral: diminished breath sounds, rhonchi (scant in bases) Percussion: Bilateral: not dull Cardiovascular: regular rate and rhythm, other (No R/M) Gastrointestinal: normoactive bowel sounds, soft, non-distended, other (No HSM, PD cathetr, clean dry site, mild lower abdominal tenderness, no rebound) Integumentary: normal Extremities: no cyanosis, no edema, pulses normal, no ischemia or petechiae Neurologic: normal mental status, non-focal exam (grossly), pupils equal and round, motor strength normal and Psychiatric: mood appropriate, affect normal CBC and BMP: 07/22/18 07:24 07/22/18 08:25 ABG, PT/INR, D-dimer: PT/INR, D-dimer PT 13.6 Sec. (12.2-14.9) 07/03/18 12:39 INR 0.98 (0.87-1.13) 07/03/18 12:39 D-Dimer > 75905 ng/mlDDU (0-234) H 06/28/18 22:26 Abnormal lab findings: Abnormal Labs 06/28/18 06/28/18 06/28/18 10:38 20:54 20:54 WBC 24.8 H RBC Hgb 16.6 H Hct 50.3 H MCV 107 H MCH 35 H RDW 15.6 H Plt Count Lymph % (Auto) Lymph # Baso # Seg Neutrophils % Seg Neuts % (Manual) 95.0 H Lymphocytes % (Manual) 3.0 L Nucleated RBC % Seg Neutrophils # Seg Neutrophils # Man 23.6 H Lymphocytes # (Manual) 0.7 L Monocytes # (Manual) D-Dimer Heparin Anti-Xa Level Sodium 131 L Potassium Chloride 89.6 L Carbon Dioxide 19 L BUN 29 H Creatinine 9.3 H Glucose 174 H POC Glucose Lactic Acid Calcium ALT 5 L Troponin T 0.073 H C-Reactive Protein Albumin 3.2 L Triglycerides 194 H HDL Cholesterol 68 H Vitamin B12 Folate 06/28/18 06/29/18 06/29/18 22:26 12:18 13:30 WBC RBC Hgb Hct MCV MCH RDW Plt Count Lymph % (Auto) Lymph # Baso # Seg Neutrophils % Seg Neuts % (Manual) Lymphocytes % (Manual) Nucleated RBC % Seg Neutrophils # Seg Neutrophils # Man Lymphocytes # (Manual) Monocytes # (Manual) D-Dimer > 25744 H Heparin Anti-Xa Level Sodium Potassium Chloride Carbon Dioxide BUN Creatinine Glucose POC Glucose 168 H Lactic Acid Calcium ALT Troponin T 0.073 H C-Reactive Protein Albumin Triglycerides HDL Cholesterol Vitamin B12 Folate 06/29/18 06/29/18 06/29/18 13:30 14:11 16:36 WBC 19.8 H RBC Hgb 14.7 H Hct 45.4 H MCV 108 H MCH 35 H RDW 15.9 H Plt Count Lymph % (Auto) Lymph # Baso # Seg Neutrophils % Seg Neuts % (Manual) Lymphocytes % (Manual) Nucleated RBC % Seg Neutrophils # Seg Neutrophils # Man Lymphocytes # (Manual) Monocytes # (Manual) D-Dimer Heparin Anti-Xa Level Sodium 133 L Potassium Chloride 91.7 L Carbon Dioxide 20 L BUN 33 H Creatinine 9.9 H Glucose 196 H POC Glucose 165 H Lactic Acid Calcium ALT Troponin T C-Reactive Protein Albumin Triglycerides HDL Cholesterol Vitamin B12 Folate 06/29/18 06/29/18 06/30/18 20:37 22:01 04:49 WBC 14.8 H RBC Hgb Hct MCV 106 H MCH 35 H RDW 15.5 H Plt Count Lymph % (Auto) Lymph # Baso # Seg Neutrophils % Seg Neuts % (Manual) 90.0 H Lymphocytes % (Manual) 5.0 L Nucleated RBC % Seg Neutrophils # Seg Neutrophils # Man 13.3 H Lymphocytes # (Manual) 0.7 L Monocytes # (Manual) D-Dimer Heparin Anti-Xa Level Sodium Potassium Chloride Carbon Dioxide BUN Creatinine Glucose POC Glucose 202 H Lactic Acid Calcium ALT Troponin T 0.077 H C-Reactive Protein Albumin Triglycerides HDL Cholesterol Vitamin B12 Folate 06/30/18 06/30/18 06/30/18 04:49 08:27 12:17 WBC RBC Hgb Hct MCV MCH RDW Plt Count Lymph % (Auto) Lymph # Baso # Seg Neutrophils % Seg Neuts % (Manual) Lymphocytes % (Manual) Nucleated RBC % Seg Neutrophils # Seg Neutrophils # Man Lymphocytes # (Manual) Monocytes # (Manual) D-Dimer Heparin Anti-Xa Level Sodium 134 L Potassium 3.5 L Chloride 94.7 L Carbon Dioxide BUN 30 H Creatinine 8.8 H Glucose 182 H POC Glucose 170 H 145 H Lactic Acid Calcium 7.9 L ALT Troponin T C-Reactive Protein Albumin Triglycerides HDL Cholesterol Vitamin B12 Folate 06/30/18 06/30/18 07/01/18 16:44 22:06 07:21 WBC 11.8 H RBC 3.32 L Hgb Hct MCV 105 H MCH 35 H RDW 15.5 H Plt Count 125 L Lymph % (Auto) Lymph # Baso # Seg Neutrophils % Seg Neuts % (Manual) Lymphocytes % (Manual) Nucleated RBC % Seg Neutrophils # Seg Neutrophils # Man Lymphocytes # (Manual) Monocytes # (Manual) D-Dimer Heparin Anti-Xa Level Sodium Potassium Chloride Carbon Dioxide BUN Creatinine Glucose POC Glucose 155 H 174 H Lactic Acid Calcium ALT Troponin T C-Reactive Protein Albumin Triglycerides HDL Cholesterol Vitamin B12 Folate 07/01/18 07/01/18 07/01/18 07:21 08:22 11:38 WBC RBC Hgb Hct MCV MCH RDW Plt Count Lymph % (Auto) Lymph # Baso # Seg Neutrophils % Seg Neuts % (Manual) Lymphocytes % (Manual) Nucleated RBC % Seg Neutrophils # Seg Neutrophils # Man Lymphocytes # (Manual) Monocytes # (Manual) D-Dimer Heparin Anti-Xa Level Sodium 134 L Potassium Chloride 95.9 L Carbon Dioxide BUN 31 H Creatinine 8.4 H Glucose 151 H POC Glucose 117 H 166 H Lactic Acid Calcium 7.8 L ALT Troponin T C-Reactive Protein Albumin Triglycerides HDL Cholesterol Vitamin B12 Folate 07/01/18 07/01/18 07/01/18 13:32 13:32 16:27 WBC RBC Hgb Hct MCV MCH RDW Plt Count Lymph % (Auto) Lymph # Baso # Seg Neutrophils % Seg Neuts % (Manual) Lymphocytes % (Manual) Nucleated RBC % Seg Neutrophils # Seg Neutrophils # Man Lymphocytes # (Manual) Monocytes # (Manual) D-Dimer Heparin Anti-Xa Level Sodium Potassium Chloride Carbon Dioxide BUN Creatinine Glucose POC Glucose 149 H Lactic Acid 2.20 H* Calcium ALT Troponin T C-Reactive Protein 7.40 H Albumin Triglycerides HDL Cholesterol Vitamin B12 Folate 07/01/18 07/01/18 07/02/18 19:35 21:36 05:22 WBC RBC Hgb Hct MCV MCH RDW Plt Count Lymph % (Auto) Lymph # Baso # Seg Neutrophils % Seg Neuts % (Manual) Lymphocytes % (Manual) Nucleated RBC % Seg Neutrophils # Seg Neutrophils # Man Lymphocytes # (Manual) Monocytes # (Manual) D-Dimer Heparin Anti-Xa Level Sodium Potassium Chloride Carbon Dioxide BUN Creatinine Glucose POC Glucose 129 H Lactic Acid 2.60 H* 2.20 H* Calcium ALT Troponin T C-Reactive Protein Albumin Triglycerides HDL Cholesterol Vitamin B12 Folate 07/02/18 07/02/18 07/02/18 05:22 05:22 07:11 WBC 12.6 H RBC 3.51 L Hgb Hct MCV 105 H MCH 35 H RDW Plt Count 132 L Lymph % (Auto) Lymph # Baso # Seg Neutrophils % Seg Neuts % (Manual) 92.0 H Lymphocytes % (Manual) 2.0 L Nucleated RBC % Seg Neutrophils # Seg Neutrophils # Man 11.6 H Lymphocytes # (Manual) 0.3 L Monocytes # (Manual) D-Dimer Heparin Anti-Xa Level Sodium 131 L Potassium 3.3 L Chloride 93.1 L Carbon Dioxide BUN 31 H Creatinine 7.5 H Glucose 228 H POC Glucose 215 H Lactic Acid Calcium 7.7 L ALT Troponin T C-Reactive Protein Albumin Triglycerides HDL Cholesterol Vitamin B12 Folate 07/02/18 07/02/18 07/03/18 15:35 21:56 10:56 WBC RBC Hgb Hct MCV MCH RDW Plt Count Lymph % (Auto) Lymph # Baso # Seg Neutrophils % Seg Neuts % (Manual) Lymphocytes % (Manual) Nucleated RBC % Seg Neutrophils # Seg Neutrophils # Man Lymphocytes # (Manual) Monocytes # (Manual) D-Dimer Heparin Anti-Xa Level Sodium 130 L Potassium Chloride 91.6 L Carbon Dioxide BUN 33 H Creatinine 7.8 H Glucose POC Glucose 123 H 135 H Lactic Acid Calcium 7.7 L ALT Troponin T C-Reactive Protein Albumin Triglycerides HDL Cholesterol Vitamin B12 Folate 07/03/18 07/03/18 07/03/18 11:00 21:03 22:06 WBC 11.9 H RBC 3.59 L Hgb Hct MCV 103 H MCH 35 H RDW Plt Count Lymph % (Auto) Lymph # Baso # Seg Neutrophils % Seg Neuts % (Manual) 94.0 H Lymphocytes % (Manual) 5.0 L Nucleated RBC % Seg Neutrophils # Seg Neutrophils # Man 11.2 H Lymphocytes # (Manual) 0.6 L Monocytes # (Manual) D-Dimer Heparin Anti-Xa Level 0.28 L Sodium Potassium Chloride Carbon Dioxide BUN Creatinine Glucose POC Glucose 177 H Lactic Acid Calcium ALT Troponin T C-Reactive Protein Albumin Triglycerides HDL Cholesterol Vitamin B12 Folate 07/04/18 07/04/18 07/04/18 01:08 05:22 05:22 WBC 13.1 H RBC Hgb Hct MCV 104 H MCH 35 H RDW Plt Count 139 L Lymph % (Auto) 5.0 L Lymph # 0.7 L Baso # 0.2 H Seg Neutrophils % 87.7 H Seg Neuts % (Manual) Lymphocytes % (Manual) Nucleated RBC % Seg Neutrophils # 11.5 H Seg Neutrophils # Man Lymphocytes # (Manual) Monocytes # (Manual) D-Dimer Heparin Anti-Xa Level Sodium 132 L Potassium 3.1 L Chloride 92.4 L Carbon Dioxide BUN 30 H Creatinine 7.4 H Glucose 113 H POC Glucose 106 H Lactic Acid Calcium 7.8 L ALT Troponin T C-Reactive Protein Albumin Triglycerides HDL Cholesterol Vitamin B12 Folate 07/04/18 07/04/18 07/04/18 05:22 12:15 14:59 WBC RBC Hgb Hct MCV MCH RDW Plt Count Lymph % (Auto) Lymph # Baso # Seg Neutrophils % Seg Neuts % (Manual) Lymphocytes % (Manual) Nucleated RBC % Seg Neutrophils # Seg Neutrophils # Man Lymphocytes # (Manual) Monocytes # (Manual) D-Dimer Heparin Anti-Xa Level 1.31 H 1.70 H Sodium Potassium Chloride Carbon Dioxide BUN Creatinine Glucose POC Glucose 200 H Lactic Acid Calcium ALT Troponin T C-Reactive Protein Albumin Triglycerides HDL Cholesterol Vitamin B12 Folate 07/04/18 07/05/18 07/05/18 20:56 06:17 06:17 WBC RBC 3.51 L Hgb Hct MCV 104 H MCH 35 H RDW Plt Count Lymph % (Auto) 7.8 L Lymph # 0.7 L Baso # Seg Neutrophils % 85.2 H Seg Neuts % (Manual) Lymphocytes % (Manual) Nucleated RBC % Seg Neutrophils # Seg Neutrophils # Man Lymphocytes # (Manual) Monocytes # (Manual) D-Dimer Heparin Anti-Xa Level Sodium 132 L Potassium 3.1 L Chloride 92.7 L Carbon Dioxide BUN 29 H Creatinine 7.3 H Glucose 115 H POC Glucose 133 H Lactic Acid Calcium 7.9 L ALT Troponin T C-Reactive Protein Albumin Triglycerides HDL Cholesterol Vitamin B12 Folate 07/05/18 07/06/18 07/06/18 23:47 06:53 06:53 WBC RBC 3.47 L Hgb Hct MCV 104 H MCH 35 H RDW Plt Count Lymph % (Auto) Lymph # Baso # Seg Neutrophils % Seg Neuts % (Manual) 93.0 H Lymphocytes % (Manual) 2.0 L Nucleated RBC % Seg Neutrophils # Seg Neutrophils # Man 8.6 H Lymphocytes # (Manual) 0.2 L Monocytes # (Manual) D-Dimer Heparin Anti-Xa Level Sodium 132 L Potassium 3.2 L Chloride 94.5 L Carbon Dioxide BUN 32 H Creatinine 8.7 H Glucose 106 H POC Glucose 112 H Lactic Acid Calcium 7.8 L ALT Troponin T C-Reactive Protein Albumin Triglycerides HDL Cholesterol Vitamin B12 Folate 07/06/18 07/06/18 07/07/18 16:23 22:56 07:56 WBC RBC Hgb Hct MCV MCH RDW Plt Count Lymph % (Auto) Lymph # Baso # Seg Neutrophils % Seg Neuts % (Manual) Lymphocytes % (Manual) Nucleated RBC % Seg Neutrophils # Seg Neutrophils # Man Lymphocytes # (Manual) Monocytes # (Manual) D-Dimer Heparin Anti-Xa Level Sodium Potassium Chloride Carbon Dioxide BUN Creatinine Glucose POC Glucose 126 H 139 H 181 H Lactic Acid Calcium ALT Troponin T C-Reactive Protein Albumin Triglycerides HDL Cholesterol Vitamin B12 Folate 07/07/18 07/07/18 07/07/18 09:35 09:35 12:52 WBC RBC Hgb Hct MCV 105 H MCH 35 H RDW Plt Count Lymph % (Auto) 6.3 L Lymph # 0.6 L Baso # Seg Neutrophils % 87.9 H Seg Neuts % (Manual) Lymphocytes % (Manual) Nucleated RBC % Seg Neutrophils # 8.2 H Seg Neutrophils # Man Lymphocytes # (Manual) Monocytes # (Manual) D-Dimer Heparin Anti-Xa Level Sodium 130 L Potassium 3.4 L Chloride 90.3 L Carbon Dioxide BUN 29 H Creatinine 8.0 H Glucose 201 H POC Glucose 161 H Lactic Acid Calcium 8.0 L ALT Troponin T C-Reactive Protein Albumin Triglycerides HDL Cholesterol Vitamin B12 Folate 07/07/18 07/08/18 07/08/18 21:56 05:19 05:19 WBC 12.7 H RBC Hgb Hct MCV 104 H MCH 35 H RDW Plt Count Lymph % (Auto) Lymph # Baso # Seg Neutrophils % Seg Neuts % (Manual) 92.0 H Lymphocytes % (Manual) 5.0 L Nucleated RBC % 1.0 H Seg Neutrophils # Seg Neutrophils # Man 11.7 H Lymphocytes # (Manual) 0.6 L Monocytes # (Manual) D-Dimer Heparin Anti-Xa Level Sodium 134 L Potassium 3.4 L Chloride 93.6 L Carbon Dioxide BUN 30 H Creatinine 8.0 H Glucose 184 H POC Glucose 162 H Lactic Acid Calcium ALT Troponin T C-Reactive Protein Albumin Triglycerides HDL Cholesterol Vitamin B12 Folate 07/08/18 07/08/18 07/08/18 05:19 05:19 08:25 WBC RBC Hgb Hct MCV MCH RDW Plt Count Lymph % (Auto) Lymph # Baso # Seg Neutrophils % Seg Neuts % (Manual) Lymphocytes % (Manual) Nucleated RBC % Seg Neutrophils # Seg Neutrophils # Man Lymphocytes # (Manual) Monocytes # (Manual) D-Dimer Heparin Anti-Xa Level Sodium Potassium Chloride Carbon Dioxide BUN Creatinine Glucose POC Glucose 200 H Lactic Acid Calcium ALT Troponin T C-Reactive Protein Albumin Triglycerides HDL Cholesterol Vitamin B12 1416 H Folate 2.39 L 07/08/18 07/08/18 07/08/18 11:48 16:14 21:53 WBC RBC Hgb Hct MCV MCH RDW Plt Count Lymph % (Auto) Lymph # Baso # Seg Neutrophils % Seg Neuts % (Manual) Lymphocytes % (Manual) Nucleated RBC % Seg Neutrophils # Seg Neutrophils # Man Lymphocytes # (Manual) Monocytes # (Manual) D-Dimer Heparin Anti-Xa Level Sodium Potassium Chloride Carbon Dioxide BUN Creatinine Glucose POC Glucose 202 H 176 H 219 H Lactic Acid Calcium ALT Troponin T C-Reactive Protein Albumin Triglycerides HDL Cholesterol Vitamin B12 Folate 07/09/18 07/09/18 07/09/18 07:50 09:51 09:51 WBC 15.8 H RBC Hgb Hct 43.4 H MCV 105 H MCH 34 H RDW Plt Count Lymph % (Auto) Lymph # Baso # Seg Neutrophils % Seg Neuts % (Manual) 94.0 H Lymphocytes % (Manual) 3.0 L Nucleated RBC % 1.0 H Seg Neutrophils # Seg Neutrophils # Man 14.9 H Lymphocytes # (Manual) 0.5 L Monocytes # (Manual) D-Dimer Heparin Anti-Xa Level Sodium 135 L Potassium Chloride 95.5 L Carbon Dioxide BUN 29 H Creatinine 8.4 H Glucose 204 H POC Glucose 163 H Lactic Acid Calcium ALT Troponin T C-Reactive Protein Albumin Triglycerides HDL Cholesterol Vitamin B12 Folate 07/09/18 07/09/18 07/09/18 11:50 18:47 22:16 WBC RBC Hgb Hct MCV MCH RDW Plt Count Lymph % (Auto) Lymph # Baso # Seg Neutrophils % Seg Neuts % (Manual) Lymphocytes % (Manual) Nucleated RBC % Seg Neutrophils # Seg Neutrophils # Man Lymphocytes # (Manual) Monocytes # (Manual) D-Dimer Heparin Anti-Xa Level Sodium Potassium Chloride Carbon Dioxide BUN Creatinine Glucose POC Glucose 156 H 176 H 189 H Lactic Acid Calcium ALT Troponin T C-Reactive Protein Albumin Triglycerides HDL Cholesterol Vitamin B12 Folate 07/10/18 07/10/18 07/10/18 05:35 08:22 08:52 WBC 17.9 H RBC Hgb Hct MCV 105 H MCH 34 H RDW Plt Count Lymph % (Auto) Lymph # Baso # Seg Neutrophils % Seg Neuts % (Manual) 87.0 H Lymphocytes % (Manual) 6.0 L Nucleated RBC % Seg Neutrophils # Seg Neutrophils # Man 15.6 H Lymphocytes # (Manual) 1.1 L Monocytes # (Manual) 1.1 H D-Dimer Heparin Anti-Xa Level Sodium 135 L Potassium Chloride 92.8 L Carbon Dioxide BUN 27 H Creatinine 7.5 H Glucose 175 H POC Glucose 129 H Lactic Acid Calcium ALT Troponin T C-Reactive Protein Albumin Triglycerides HDL Cholesterol Vitamin B12 Folate 07/10/18 07/10/18 07/10/18 11:47 18:22 21:32 WBC RBC Hgb Hct MCV MCH RDW Plt Count Lymph % (Auto) Lymph # Baso # Seg Neutrophils % Seg Neuts % (Manual) Lymphocytes % (Manual) Nucleated RBC % Seg Neutrophils # Seg Neutrophils # Man Lymphocytes # (Manual) Monocytes # (Manual) D-Dimer Heparin Anti-Xa Level Sodium Potassium Chloride Carbon Dioxide BUN Creatinine Glucose POC Glucose 189 H 211 H 306 H Lactic Acid Calcium ALT Troponin T C-Reactive Protein Albumin Triglycerides HDL Cholesterol Vitamin B12 Folate 07/11/18 07/11/18 07/11/18 04:10 07:36 11:49 WBC 19.4 H RBC Hgb Hct MCV 107 H MCH 35 H RDW 15.3 H Plt Count Lymph % (Auto) Lymph # Baso # Seg Neutrophils % Seg Neuts % (Manual) 89.0 H Lymphocytes % (Manual) 4.0 L Nucleated RBC % Seg Neutrophils # Seg Neutrophils # Man 17.3 H Lymphocytes # (Manual) 0.8 L Monocytes # (Manual) D-Dimer Heparin Anti-Xa Level Sodium Potassium Chloride Carbon Dioxide BUN Creatinine Glucose POC Glucose 113 H 123 H Lactic Acid Calcium ALT Troponin T C-Reactive Protein Albumin Triglycerides HDL Cholesterol Vitamin B12 Folate 07/11/18 07/11/18 07/12/18 17:35 23:28 00:48 WBC 17.0 H RBC Hgb Hct MCV 106 H MCH 35 H RDW Plt Count Lymph % (Auto) Lymph # Baso # Seg Neutrophils % Seg Neuts % (Manual) 92.0 H Lymphocytes % (Manual) 3.0 L Nucleated RBC % Seg Neutrophils # Seg Neutrophils # Man 15.6 H Lymphocytes # (Manual) 0.5 L Monocytes # (Manual) 0.9 H D-Dimer Heparin Anti-Xa Level Sodium Potassium Chloride Carbon Dioxide BUN Creatinine Glucose POC Glucose 207 H 188 H Lactic Acid Calcium ALT Troponin T C-Reactive Protein Albumin Triglycerides HDL Cholesterol Vitamin B12 Folate 07/12/18 07/12/18 07/12/18 04:05 09:21 12:05 WBC RBC Hgb Hct MCV MCH RDW Plt Count Lymph % (Auto) Lymph # Baso # Seg Neutrophils % Seg Neuts % (Manual) Lymphocytes % (Manual) Nucleated RBC % Seg Neutrophils # Seg Neutrophils # Man Lymphocytes # (Manual) Monocytes # (Manual) D-Dimer Heparin Anti-Xa Level Sodium Potassium Chloride Carbon Dioxide BUN Creatinine Glucose POC Glucose 147 H 125 H 113 H Lactic Acid Calcium ALT Troponin T C-Reactive Protein Albumin Triglycerides HDL Cholesterol Vitamin B12 Folate 07/12/18 07/13/18 07/13/18 22:25 05:28 05:28 WBC 15.5 H RBC 3.62 L Hgb Hct MCV 105 H MCH 34 H RDW Plt Count Lymph % (Auto) Lymph # Baso # Seg Neutrophils % Seg Neuts % (Manual) 99.0 H Lymphocytes % (Manual) 1.0 L Nucleated RBC % Seg Neutrophils # Seg Neutrophils # Man 15.3 H Lymphocytes # (Manual) 0.2 L Monocytes # (Manual) D-Dimer Heparin Anti-Xa Level Sodium 133 L Potassium Chloride 95.0 L Carbon Dioxide BUN 43 H Creatinine 9.1 H Glucose 124 H POC Glucose 162 H Lactic Acid Calcium 8.0 L ALT Troponin T C-Reactive Protein Albumin Triglycerides HDL Cholesterol Vitamin B12 Folate 07/13/18 07/13/18 07/13/18 07:59 11:40 16:41 WBC RBC Hgb Hct MCV MCH RDW Plt Count Lymph % (Auto) Lymph # Baso # Seg Neutrophils % Seg Neuts % (Manual) Lymphocytes % (Manual) Nucleated RBC % Seg Neutrophils # Seg Neutrophils # Man Lymphocytes # (Manual) Monocytes # (Manual) D-Dimer Heparin Anti-Xa Level Sodium Potassium Chloride Carbon Dioxide BUN Creatinine Glucose POC Glucose 191 H 195 H 204 H Lactic Acid Calcium ALT Troponin T C-Reactive Protein Albumin Triglycerides HDL Cholesterol Vitamin B12 Folate 07/13/18 07/14/18 07/14/18 22:38 04:15 04:15 WBC 13.1 H RBC Hgb Hct MCV 107 H MCH 34 H RDW Plt Count Lymph % (Auto) Lymph # Baso # Seg Neutrophils % Seg Neuts % (Manual) 89.0 H Lymphocytes % (Manual) 6.0 L Nucleated RBC % Seg Neutrophils # Seg Neutrophils # Man 11.7 H Lymphocytes # (Manual) 0.8 L Monocytes # (Manual) D-Dimer Heparin Anti-Xa Level Sodium 136 L Potassium Chloride 95.3 L Carbon Dioxide BUN 40 H Creatinine 8.1 H Glucose POC Glucose 190 H Lactic Acid Calcium ALT Troponin T C-Reactive Protein Albumin Triglycerides HDL Cholesterol Vitamin B12 Folate 07/14/18 07/14/18 07/14/18 07:57 12:18 17:24 WBC RBC Hgb Hct MCV MCH RDW Plt Count Lymph % (Auto) Lymph # Baso # Seg Neutrophils % Seg Neuts % (Manual) Lymphocytes % (Manual) Nucleated RBC % Seg Neutrophils # Seg Neutrophils # Man Lymphocytes # (Manual) Monocytes # (Manual) D-Dimer Heparin Anti-Xa Level Sodium Potassium Chloride Carbon Dioxide BUN Creatinine Glucose POC Glucose 205 H 180 H 249 H Lactic Acid Calcium ALT Troponin T C-Reactive Protein Albumin Triglycerides HDL Cholesterol Vitamin B12 Folate 07/14/18 07/15/18 07/15/18 22:19 06:42 06:42 WBC 11.9 H RBC Hgb Hct MCV 105 H MCH 34 H RDW Plt Count Lymph % (Auto) 6.4 L Lymph # 0.8 L Baso # Seg Neutrophils % 89.6 H Seg Neuts % (Manual) Lymphocytes % (Manual) Nucleated RBC % Seg Neutrophils # 10.6 H Seg Neutrophils # Man Lymphocytes # (Manual) Monocytes # (Manual) D-Dimer Heparin Anti-Xa Level Sodium 131 L Potassium 3.5 L Chloride 94.3 L Carbon Dioxide BUN 36 H Creatinine 7.0 H Glucose 166 H POC Glucose 156 H Lactic Acid Calcium 8.1 L ALT Troponin T C-Reactive Protein Albumin Triglycerides HDL Cholesterol Vitamin B12 Folate 07/15/18 07/15/18 07/15/18 08:12 11:46 15:44 WBC RBC Hgb Hct MCV MCH RDW Plt Count Lymph % (Auto) Lymph # Baso # Seg Neutrophils % Seg Neuts % (Manual) Lymphocytes % (Manual) Nucleated RBC % Seg Neutrophils # Seg Neutrophils # Man Lymphocytes # (Manual) Monocytes # (Manual) D-Dimer Heparin Anti-Xa Level Sodium Potassium Chloride Carbon Dioxide BUN Creatinine Glucose POC Glucose 187 H 201 H 169 H Lactic Acid Calcium ALT Troponin T C-Reactive Protein Albumin Triglycerides HDL Cholesterol Vitamin B12 Folate 07/15/18 07/16/18 07/16/18 23:09 00:22 01:52 WBC RBC Hgb Hct MCV MCH RDW Plt Count Lymph % (Auto) Lymph # Baso # Seg Neutrophils % Seg Neuts % (Manual) Lymphocytes % (Manual) Nucleated RBC % Seg Neutrophils # Seg Neutrophils # Man Lymphocytes # (Manual) Monocytes # (Manual) D-Dimer Heparin Anti-Xa Level Sodium Potassium Chloride Carbon Dioxide BUN Creatinine Glucose 234 H POC Glucose < 40 L 203 H Lactic Acid Calcium ALT Troponin T C-Reactive Protein Albumin Triglycerides HDL Cholesterol Vitamin B12 Folate 07/16/18 07/16/18 07/16/18 04:22 05:12 05:12 WBC 14.0 H RBC 3.58 L Hgb Hct MCV 106 H MCH 34 H RDW Plt Count Lymph % (Auto) Lymph # Baso # Seg Neutrophils % Seg Neuts % (Manual) 92.0 H Lymphocytes % (Manual) 4.0 L Nucleated RBC % Seg Neutrophils # Seg Neutrophils # Man 12.9 H Lymphocytes # (Manual) 0.6 L Monocytes # (Manual) D-Dimer Heparin Anti-Xa Level Sodium 130 L Potassium 2.9 L* Chloride 92.9 L Carbon Dioxide BUN 38 H Creatinine 6.8 H Glucose 194 H POC Glucose 194 H Lactic Acid Calcium ALT Troponin T C-Reactive Protein Albumin Triglycerides HDL Cholesterol Vitamin B12 Folate 07/16/18 07/16/18 07/16/18 08:45 12:22 16:42 WBC RBC Hgb Hct MCV MCH RDW Plt Count Lymph % (Auto) Lymph # Baso # Seg Neutrophils % Seg Neuts % (Manual) Lymphocytes % (Manual) Nucleated RBC % Seg Neutrophils # Seg Neutrophils # Man Lymphocytes # (Manual) Monocytes # (Manual) D-Dimer Heparin Anti-Xa Level Sodium Potassium Chloride Carbon Dioxide BUN Creatinine Glucose POC Glucose 155 H 208 H 143 H Lactic Acid Calcium ALT Troponin T C-Reactive Protein Albumin Triglycerides HDL Cholesterol Vitamin B12 Folate 07/16/18 07/17/18 07/18/18 22:02 04:32 00:56 WBC 13.9 H RBC 3.43 L Hgb Hct MCV 106 H MCH 35 H RDW 15.6 H Plt Count Lymph % (Auto) Lymph # Baso # Seg Neutrophils % Seg Neuts % (Manual) 88.0 H Lymphocytes % (Manual) 2.0 L Nucleated RBC % Seg Neutrophils # Seg Neutrophils # Man 12.2 H Lymphocytes # (Manual) 0.3 L Monocytes # (Manual) D-Dimer Heparin Anti-Xa Level Sodium 131 L Potassium Chloride 93.6 L Carbon Dioxide BUN 45 H Creatinine 7.2 H Glucose POC Glucose 115 H Lactic Acid Calcium ALT Troponin T C-Reactive Protein Albumin Triglycerides HDL Cholesterol Vitamin B12 Folate 07/18/18 07/18/18 07/18/18 04:23 16:08 18:24 WBC RBC Hgb Hct MCV MCH RDW Plt Count Lymph % (Auto) Lymph # Baso # Seg Neutrophils % Seg Neuts % (Manual) Lymphocytes % (Manual) Nucleated RBC % Seg Neutrophils # Seg Neutrophils # Man Lymphocytes # (Manual) Monocytes # (Manual) D-Dimer Heparin Anti-Xa Level Sodium Potassium Chloride Carbon Dioxide BUN 22 H Creatinine 4.9 H Glucose 60 L POC Glucose 62 L 116 H Lactic Acid Calcium 7.5 L ALT Troponin T C-Reactive Protein Albumin Triglycerides HDL Cholesterol Vitamin B12 Folate 07/18/18 07/19/18 07/19/18 21:55 11:15 13:04 WBC 13.3 H RBC 3.40 L Hgb Hct MCV 108 H MCH 34 H RDW 16.1 H Plt Count Lymph % (Auto) Lymph # Baso # Seg Neutrophils % Seg Neuts % (Manual) 97.0 H Lymphocytes % (Manual) 1.0 L Nucleated RBC % Seg Neutrophils # Seg Neutrophils # Man 12.9 H Lymphocytes # (Manual) 0.1 L Monocytes # (Manual) D-Dimer Heparin Anti-Xa Level Sodium Potassium Chloride Carbon Dioxide BUN Creatinine Glucose POC Glucose 114 H 109 H Lactic Acid Calcium ALT Troponin T C-Reactive Protein Albumin Triglycerides HDL Cholesterol Vitamin B12 Folate 0407/19/18 07/20/18 22:18 23:41 07:18 WBC RBC Hgb Hct MCV MCH RDW Plt Count Lymph % (Auto) Lymph # Baso # Seg Neutrophils % Seg Neuts % (Manual) Lymphocytes % (Manual) Nucleated RBC % Seg Neutrophils # Seg Neutrophils # Man Lymphocytes # (Manual) Monocytes # (Manual) D-Dimer Heparin Anti-Xa Level Sodium Potassium Chloride Carbon Dioxide BUN Creatinine Glucose POC Glucose 52 L 132 H 108 H Lactic Acid Calcium ALT Troponin T C-Reactive Protein Albumin Triglycerides HDL Cholesterol Vitamin B12 Folate 07/20/18 07/20/18 07/20/18 12:07 16:48 21:52 WBC RBC Hgb Hct MCV MCH RDW Plt Count Lymph % (Auto) Lymph # Baso # Seg Neutrophils % Seg Neuts % (Manual) Lymphocytes % (Manual) Nucleated RBC % Seg Neutrophils # Seg Neutrophils # Man Lymphocytes # (Manual) Monocytes # (Manual) D-Dimer Heparin Anti-Xa Level Sodium Potassium Chloride Carbon Dioxide BUN Creatinine Glucose POC Glucose 120 H 151 H 146 H Lactic Acid Calcium ALT Troponin T C-Reactive Protein Albumin Triglycerides HDL Cholesterol Vitamin B12 Folate 07/21/18 07/21/18 07/21/18 07:37 16:26 21:39 WBC RBC Hgb Hct MCV MCH RDW Plt Count Lymph % (Auto) Lymph # Baso # Seg Neutrophils % Seg Neuts % (Manual) Lymphocytes % (Manual) Nucleated RBC % Seg Neutrophils # Seg Neutrophils # Man Lymphocytes # (Manual) Monocytes # (Manual) D-Dimer Heparin Anti-Xa Level Sodium Potassium Chloride Carbon Dioxide BUN Creatinine Glucose POC Glucose 67 L 123 H 127 H Lactic Acid Calcium ALT Troponin T C-Reactive Protein Albumin Triglycerides HDL Cholesterol Vitamin B12 Folate 07/22/18 07/22/18 07/22/18 07:24 07:24 11:43 WBC 15.4 H RBC 3.26 L Hgb Hct MCV 108 H MCH 34 H RDW 16.4 H Plt Count Lymph % (Auto) Lymph # Baso # Seg Neutrophils % Seg Neuts % (Manual) 95.0 H Lymphocytes % (Manual) 1.0 L Nucleated RBC % Seg Neutrophils # Seg Neutrophils # Man 14.6 H Lymphocytes # (Manual) 0.2 L Monocytes # (Manual) D-Dimer Heparin Anti-Xa Level Sodium 135 L Potassium Chloride Carbon Dioxide BUN 28 H Creatinine 5.9 H Glucose POC Glucose 107 H Lactic Acid Calcium 8.3 L ALT Troponin T C-Reactive Protein Albumin Triglycerides HDL Cholesterol Vitamin B12 Folate 07/22/18 07/23/18 16:01 07:19 WBC RBC Hgb Hct MCV MCH RDW Plt Count Lymph % (Auto) Lymph # Baso # Seg Neutrophils % Seg Neuts % (Manual) Lymphocytes % (Manual) Nucleated RBC % Seg Neutrophils # Seg Neutrophils # Man Lymphocytes # (Manual) Monocytes # (Manual) D-Dimer Heparin Anti-Xa Level Sodium Potassium Chloride Carbon Dioxide BUN Creatinine Glucose POC Glucose 152 H 64 L Lactic Acid Calcium ALT Troponin T C-Reactive Protein Albumin Triglycerides HDL Cholesterol Vitamin B12 Folate Chest x-ray: report reviewed (borderline heart size, minor atelectatic changes in the lung bases), image reviewed Allied health notes reviewed: nursing
[2018-07-23 17:51] VITALS: BP 117/55
== END 2018-07-23 18:00 | DRG 919 ==
LOC: ED 18:31 → CC1 06-29 09:13 → 4A 07-01 19:16 → 2B-ACE 07-07 14:27
PROVIDERS: ADMIT Internal Medicine; ATTEND Internal Medicine
PROC: 05JY3ZZ Inspection of Upper Vein, Percutaneous Approach (ICD-10-PCS; principal; 2018-06-29)
PROC: 06JY3ZZ Inspection of Lower Vein, Percutaneous Approach (ICD-10-PCS; 2018-06-29)
PROC: 06HN33Z Insertion of Infusion Device into Left Femoral Vein, Percutaneous Approach (ICD-10-PCS; 2018-06-29)
PROC: 0JH63XZ Insertion of Tunneled Vascular Access Device into Chest Subcutaneous Tissue and Fascia, Percutaneous Approach (ICD-10-PCS; 2018-07-16)
PROC: 02HV33Z Insertion of Infusion Device into Superior Vena Cava, Percutaneous Approach (ICD-10-PCS; 2018-07-16)
PROC: B548ZZA Ultrasonography of Superior Vena Cava, Guidance (ICD-10-PCS; 2018-07-16)
PROC: B5181ZA Fluoroscopy of Superior Vena Cava using Low Osmolar Contrast, Guidance (ICD-10-PCS; 2018-07-16)
PROC: 5A1D70Z Performance of Urinary Filtration, Intermittent, Less than 6 Hours Per Day (ICD-10-PCS; 2018-07-17)
PROC: 02PYX3Z Removal of Infusion Device from Great Vessel, External Approach (ICD-10-PCS; 2018-07-18)
PROC: 5A1D70Z Performance of Urinary Filtration, Intermittent, Less than 6 Hours Per Day (ICD-10-PCS; 2018-07-19)
PROC: 5A1D70Z Performance of Urinary Filtration, Intermittent, Less than 6 Hours Per Day (ICD-10-PCS; 2018-07-22)
DX: T85.611A Breakdown (mechanical) of intraperitoneal dialysis catheter, initial encounter (principal); A41.9 Sepsis, unspecified organism; R65.21 Severe sepsis with septic shock; N18.6 End stage renal disease; I21.A1 Myocardial infarction type 2; K65.9 Peritonitis, unspecified; J18.1 Lobar pneumonia, unspecified organism; I82.412 Acute embolism and thrombosis of left femoral vein; I82.4Z2 Acute embolism and thrombosis of unspecified deep veins of left distal lower extremity; I12.0 Hypertensive chronic kidney disease with stage 5 chronic kidney disease or end stage renal disease; N25.81 Secondary hyperparathyroidism of renal origin; I95.9 Hypotension, unspecified; E11.22 Type 2 diabetes mellitus with diabetic chronic kidney disease; E66.9 Obesity, unspecified; E78.5 Hyperlipidemia, unspecified; M19.90 Unspecified osteoarthritis, unspecified site; I87.8 Other specified disorders of veins; E87.6 Hypokalemia; Z68.34 Body mass index [BMI] 34.0-34.9, adult; Z99.2 Dependence on renal dialysis; Z83.3 Family history of diabetes mellitus; Z82.49 Family history of ischemic heart disease and other diseases of the circulatory system; Z79.82 Long term (current) use of aspirin; Z79.899 Other long term (current) drug therapy
CPT/HCPCS: 36415; 36558; 71045; 71275; 72100; 74018; 74177; 76705; 76770; 77001; 78452; 78582; 80048; 80053; 80061; 80074; 80202; 82140; 82533; 82550; 82607; 82747; 82947; 82962; 84132; 84484; 85007; 85014; 85018; 85025; 85027; 85049; 85379; 85520; 85610; 85730; 86140; 87040; 87075; 87116; 88300; 88302; 89051; 93005; 93010; 93017; 93306; 93970; 94760; G0378; A9270-GY; A9502; A9540; A9558; C1750; C1769; J0456; J0690; J0692; J0696; J0713; J1644; J1720; J1815; J2250; J2270; J2405; J2785; J3010; J3370; J7030; J7040; J7050; Q9967